=== PATIENT | female | born 1975 | race Caucasian/White ===

== ENCOUNTER 2018-10-05 16:03 | Outpatient (CLI) | payer BC, SELFPAY ==
--- NOTE | 2018-10-05 16:15 | DI.RAD_ITS ---
SYMPTOM/DIAGNOSIS: RT ANKLE INJURY, SWELLING S99.912B RIGHT ANKLE: There is soft tissue swelling greater around the lateral malleolus. No fracture or ankle mortise widening is seen. There are prominent calcaneal spurs. An ossicle is seen at the posterior talocalcaneal joint. IMPRESSION: Soft tissue swelling.
== END 2018-10-05 16:23 ==
PROVIDERS: PCP Family Medicine; Visit Provider Nurse Practitioner Adult Health
DX: S99.911A Unspecified injury of right ankle, initial encounter (principal)
CPT/HCPCS: 73610

== ENCOUNTER 2018-11-20 00:37 | Outpatient (CLI) | payer BC, SELFPAY ==
--- NOTE | 2018-11-20 16:25 | DI.RAD_ITS ---
SYMPTOM/DIAGNOSIS: LOW BACK PAIN LUMBOSACRAL SPINE: 11/20 Five views were obtained. There are mild degenerative changes of the S-I joints bilaterally. There is loss of the lumbar lordosis. There is mild disc space narrowing at L2-3, L3-4 and L4-5. There is no evidence of spondylolysis or spondylolisthesis. Mild hypertrophic degenerative changes of the facet joints noted throughout the lumbar region. No other significant bony abnormality seen. CONCLUSION: Degenerative changes as described above. 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
== END 2018-11-20 00:57 ==
PROVIDERS: PCP Family Medicine; Visit Provider Nurse Practitioner Adult Health
DX: M54.5 Low back pain (principal); M47.816 Spondylosis without myelopathy or radiculopathy, lumbar region; M51.36 Other intervertebral disc degeneration, lumbar region
CPT/HCPCS: 72110

== ENCOUNTER 2019-02-19 00:08 | Outpatient (CLI) | payer BC, SELFPAY ==
--- NOTE | 2019-02-19 10:13 | DI.MRI_ITS ---
EXAM: MR LUMBAR SPINE WO CLINICAL HISTORY: LLE LUMBAR PAIN AND RADICULAR PAIN, ? L4 IMPINGEMENT ON LT, M54.5, M54.10. TECHNIQUE: Multiplanar multisequence MRI was performed. COMPARISON: XR lumbar spine complete from 11/20/2018 FINDINGS: The uterus is incidentally noted to be enlarged and has a nodular contour, consistent with multiple f ibroids. The uterus is not fully included on the exam on any sequence The L1-2 disc has a normal appearance. There is mild concentric bulging of the L2-3 disc. At L3-4, there is moderate loss of disc height and concentric disc bulging. There are mild facet degenerative changes and mild ligamentous hypertrophy. There is bilateral neural foraminal encroachment, greater on the right. There is mild loss of disc height and mild disc bulging at L4-5. There are facet deg enerative changes, which cause bilateral neural foraminal encroachment, greater on the left. The L5- S1 did disc shows minimal bulging. There is no significant neural foraminal narrowing. A bone islan d is seen at L4. The aorta is normal in diameter. IMPRESSION: Degenerative disc changes and facet degenerative changes combine to cause bilateral neural foraminal narrowing from L2-3 through L4-5, greatest at L3-4 on the right and L4-5 on the left.
== END 2019-02-19 00:28 ==
PROVIDERS: PCP Family Medicine; Visit Provider Nurse Practitioner
DX: M54.16 Radiculopathy, lumbar region (principal); M51.16 Intervertebral disc disorders with radiculopathy, lumbar region; M47.26 Other spondylosis with radiculopathy, lumbar region
CPT/HCPCS: 72148

== ENCOUNTER 2019-06-21 08:33 | Outpatient (CLI) | payer BC, SELFPAY ==
[2019-06-24 14:38] LABS: SARS-CoV-2 RNA Undetected (Undetected); SARS-CoV-2 Specimen Source Nasopharynx
== END 2019-06-21 08:53 ==
PROVIDERS: PCP Family Medicine; Visit Provider Physician Assistant Medical
DX: Z11.59 Encounter for screening for other viral diseases (principal)
CPT/HCPCS: U0003

== ENCOUNTER 2019-11-08 02:29 | Outpatient (CLI) | payer BC, SELFPAY ==
--- NOTE | 2019-11-08 | DI.MAMMO_ITS ---
EXAM: MG MAMMO SCREENING CLINICAL HISTORY: SCREENING, Z12.31 TECHNIQUE: Mammograms were interpreted according to the usual protocol including computer analysis w [id number] CAD system, tomosynthesis and C-view imaging. COMPARISON: FINDINGS: Breasts are of moderate density with fairly symmetrical distribution of fibroglandular tissue. No do minant mass or clumped microcalcification is identified in either breast. The current examination is compared with previous examinations including February 2018 and there has been no gross interval erin nge in appearance in comparison with the prior studies. IMPRESSION: No specific evidence of malignancy at this time. Routine screening examinations are suggested at yea rly intervals in this age group according to the ACS ACR guidelines. BI-RADS Category 1 - Negative Breast Density - Category B - Scattered areas of fibroglandular density
== END 2019-11-08 02:49 ==
PROVIDERS: PCP Family Medicine; Visit Provider Nurse Practitioner Adult Health
DX: Z12.31 Encounter for screening mammogram for malignant neoplasm of breast (principal)
CPT/HCPCS: 77063; 77067

== ENCOUNTER 2020-04-25 18:03 | Emergency (ER) | payer BC, SELFPAY ==
[2020-04-25 18:15] VITALS: PULSE 84; TEMP 36.7; O2SAT 100
--- NOTE | 2020-04-25 18:39 | ED.GENADUL_ITS ---
Discharge Plan Disposition Patient Disposition: HOME Condition: Stable Discharge Details Clinical Impression: Occupational exposure in workplace Primary Care Provider: Soraya Lovett ED Provider: Thang Mcneil Home Meds and New Rx's Prescriptions: Continued celecoxib 200 mg capsule 200 mg PO BID RF: 0 gabapentin 300 mg capsule 900 mg PO TID RF: 0 losartan-hydrochlorothiazide 50-12.5 mg tablet 1 tab PO DAILY AM RF: 0 losartan-hydrochlorothiazide 100-12.5 mg tablet 1 tab PO DAILY RF: 0 ergocalciferol (vitamin D2) [Vitamin D2] 1,250 mcg (50,000 unit) capsule 1 mcg PO DAILY AM RF: 0 oxycodone-acetaminophen 5-325 mg tablet 1 tab PO BID RF: 0 cyclobenzaprine 10 mg tablet 10 mg PO DAILY PRN PRNRF: 0 omeprazole 20 mg capsule,delayed release(DR/EC) 20 mg PO DAILY AM RF: 0 Monovisc 88 mg/4 mL syringe INTRA-ARTICULAR RF: 0 loperamide 2 mg capsule RF: 0 terbinafine HCl 250 mg tablet RF: 0 Discharge Instructions Additional Instructions: Please call the emergency department on Tuesday afternoon for laboratory results. The number is [phone]. May resume normal routine and activities. Cleared for return to work. Medical Decision Making 44-year-old female presents from home after referral from her employer at this date. 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 Patient uses personal protective equipment during her job and she has been feeling well. Patient is well-appearing and in no acute distress. I feel she simply requires laboratory analysis including screening blood work and brucella antibodies. We will ask that she call in for results on Tuesday. HPI General Mode of arrival: ambulatory . Date/Time Provider Initiated Documentation: 04/25/20 18:04 . Limitations to Documentation: no limitations . Information obtained by: patient . History of Present Illness 44 year old F presents to the emergency department with the chief complaint of Exposure to brucellosis, no other complaints, Patient started experiencing this unknown and it has been other. No relieving factors improve symptom(s), No exacerbating factors reported . Patient notes no other symptoms.. Patient did receive the following treatments prior to arrival, none Related Data Home Medications Medication Instructions Recorded Confirmed Monovisc INTRA-ARTICULAR 04/25/20 celecoxib 200 mg PO BID 04/25/20 04/25/20 cyclobenzaprine 10 mg PO DAILY PRN PRN 04/25/20 04/25/20 ergocalciferol (vitamin D2) 1 mcg PO DAILY AM 04/25/20 04/25/20 [Vitamin D2] gabapentin 900 mg PO TID 04/25/20 04/25/20 loperamide 04/25/20 losartan-hydrochlorothiazide 1 tab PO DAILY 04/25/20 04/25/20 losartan-hydrochlorothiazide 1 tab PO DAILY AM 04/25/20 04/25/20 omeprazole 20 mg PO DAILY AM 04/25/20 04/25/20 oxycodone-acetaminophen 1 tab PO BID 04/25/20 04/25/20 terbinafine HCl mg 04/25/20 Allergies Allergy/AdvReac Type Severity Reaction Status Date / Time No Known Allergies Allergy Unverified 04/25/20 18:19 General Stated Complaint: Patient Exposure Risk IDALMIS: 3 Review of Systems Narrative: No recent illness. She has otherwise been well. [facility] Social History Smoking risk assessment performed?: No Exam Narrative Exam Narrative: GEN: awake, alert, oriented 3. Pleasant, well groomed, interactive. HEAD: Normocephalic, atraumatic EYES: PERRL, EOMI NECK: Full ROM, no MARY ANNE, no menigismus CHEST/RESP: Nontender, clear to auscultation bilateral, no wheeze/rhonchi/rales CARDIOVASCULAR: RRR, no murmur, rub nery. 2+ Rad pulse bilateral Neuro: Grossly normal neurologic exam, conversant, interactive. Psych: Speech fluent, thoughts congruent, affect normal Course Vital Signs Vital signs: Vital Signs Temperature 36.7 C 04/25/20 18:15 Pulse 84 04/25/20 18:15 Pulse Oximetry 100 04/25/20 18:15 Temperature 36.7 C 04/25/20 18:15 Temperature Source Temporal Artery Scan 04/25/20 18:15 Pulse 84 04/25/20 18:15 Blood Pressure Position Sitting 04/25/20 18:15 Pulse Oximetry 100 04/25/20 18:15 Oxygen Delivery Method Room Air 04/25/20 18:15 Oxygen Flow Rate 0 04/25/20 18:15 Pain Level 0 04/25/20 18:15
[2020-04-25 19:12] LABS: Abs Immature Grans 0.01 10^3/uL (0.0-0.06); Absolute Basophil Count 0.05 10^3/uL (0.0-0.2); Absolute Lymphocyte Count 1.86 10^3/uL (1.2-3.4); Absolute Monocyte Count 0.49 10^3/uL (0.1-0.8); Absolute Neutrophil Count 4.41 10^3/uL (1.2-6.7); Basophils % 0.7; Eosinophils % 4.2; HCT 37.7 % (36.0-46.0); HGB 12.6 g/dL (11.2-15.7); Immature Grans % 0.1; Lymphocytes % 26.1; MCH 30.1 pg (27.0-33.0); MCHC 33.4 % (32.0-36.0); MPV 9.7 fL (8.0-11.0); Monocytes % 6.9; Nucleated RBC 0 %; Platelet Count 291 10^3/uL (130-400); RBC 4.19 10^6/uL (3.93-5.22); RDW 12.3 % (11.7-14.6); RDW-SD 40.4 fL; WBC 7.12 10^3/uL (4.4-10.8)
[2020-04-25 19:54] LABS: ALT 28 U/L (14-59); AST 17 U/L (15-37); Alkaline Phosphatase 50 U/L (46-116); Anion Gap 9.1 mmol/L (3-11); BUN 16 mg/dL (7-18); Bilirubin, Total 0.3 mg/dL (0.2-1.0); CO2 28.9 mmol/L (21.0-32.0); CREATININE 0.7 mg/dL (0.55-1.02); Calcium 9.5 mg/dL (8.5-10.1); Chloride 101 mmol/L (98-107); Glucose 84 mg/dL (74-106); Potassium 3.6 mmol/L (3.5-5.1); Sodium 139 mmol/L (136-145); Total Protein 7.5 g/dL (6.4-8.2)
[2020-05-02 13:10] LABS: Brucella Ab Screen, IgG Negative (Negative); Brucella Ab Screen, IgM Negative (Negative)
== END 2020-04-25 19:19 | disposition home or self-care (01) ==
PROVIDERS: Emergency Provider Emergency Medicine; PCP Family Medicine
DX: Z57.8 Occupational exposure to other risk factors (principal)
CPT/HCPCS: 80053; 99281; 85025; 86622

== ENCOUNTER 2020-06-09 04:34 | Outpatient (CLI) | payer BC, SELFPAY ==
[2020-06-09 16:55] LABS: HCT 33.7 % (36.0-46.0); HGB 11.3 g/dL (11.2-15.7); MCH 30.1 pg (27.0-33.0); MCHC 33.5 % (32.0-36.0); MCV 89.9 fL (80-95); MPV 9.8 fL (8.0-11.0); Platelet Count 257 10^3/uL (130-400); RBC 3.75 10^6/uL (3.93-5.22); RDW 12.1 % (11.7-14.6); RDW-SD 39.8 fL; WBC 6.73 10^3/uL (4.4-10.8)
[2020-06-09 17:25] LABS: C-Reactive Protein 0.53 mg/dL (0.0-0.3)
== END 2020-06-09 04:35 | disposition home or self-care (01) ==
PROVIDERS: PCP Family Medicine; Visit Provider Nurse Practitioner Adult Health
DX: R19.7 Diarrhea, unspecified (principal)
CPT/HCPCS: 36415; 85027; 86140

== ENCOUNTER 2020-06-12 10:59 | Outpatient (REF) | payer BC, SELFPAY ==
[2020-06-12 22:59] LABS: Campylobacter PCR Negative (Negative); Salmonella PCR Negative (Negative); Shiga Toxin PCR Negative (Negative); Shigella/Enteroinvasive Ecoli Negative (Negative)
== END 2020-06-12 11:00 | disposition home or self-care (01) ==
LOC: LBN 10:59
PROVIDERS: PCP Family Medicine; Visit Provider Nurse Practitioner Adult Health
DX: R19.7 Diarrhea, unspecified (principal)
CPT/HCPCS: 87493; 87505; 87177

== ENCOUNTER → 2021-10-23 00:01 | Outpatient (CLI) | payer BC, SELFPAY ==
--- OUTSIDE RECORDS SUMMARY | 2021-10-09 00:06 | XMS_ITS | Encounter Summary ---
:1975 Author Organization [facility] Address [address] [place] [address] Care Team Providers Name Role Phone Toyin Frias NP Primary Care Provider Reason for Visit Auth/Cert Specialty Diagnoses / Procedures Referred By Contact Refer red To Contact Diagnoses Effusion of right knee S/P total knee arthroplasty, right Effusion of right knee [M25.461] S/P total knee arthroplasty, right [Z96.651] Procedures [place] EXPLOR/DRAIN KNEE,INFECTN ARTHROTOMY, KNEE, WITH EXPLORATION, DRAINAGE, OR FOREIGN BODY REMOVAL Referral ID Status Reason Start Date Expiration Date Visits Requ ested Visits Authorized [id number] 07/14/2021 07/16/2021 1 1 Encounter Details Date Type Department Care Team Description 07/14/2021 Surgery [facility] - Donnie Baig, ARTHROTOMY, KNEE, WITH [facility] Operating Room EXPLORATION, DRAINAGE, [address] [place] [address] Road REMOVAL- Total Knee [phone] [address] Revision, [place] [address] EXCHANGE [42737 (Wo rk) (CPT??)] Surgery Details Date/Time Status Location OR Service Patient Case Case Traum a Class Class Type Case? 07/14/21 1030 Posted [facility] OR [facility] Orthopedics Extended G - Less Stay than 48 hours Panel 1 Procedure [facility] Anes Op Region Wound Class Commen ts ARTHROTOMY, KNEE, WITH EXPLORATION, Right General Knee Class I/ Clean DRAINAGE, OR FOREIGN BODY REMOVAL- Total Knee Revision, POLY EXCHANGE Surgeon Surgeon Role Service Panel Donnie Baig MD Primary Orthopedics 1 Special Needs AD Poly exchange for a 6 TS insert 13mm thick Social History Tobacco Use Types Packs/Day Years Used Date Never Smoker Smokeless Tobacco: Never Used Alcohol Use Standard Drinks/Week Comments Yes 14 (1 standard drink = 0.6 oz pure alcoh ol) 1-2 glasses of wine per day Alcohol Habits Answer Date Recorded How often do you have a drink containing Not asked alcohol? How many drinks containing alcohol do you Not asked have on a typical day when you are drinking? How often do you have six or more drinks Not asked on one occasion? Comment: 1-2 glasses of wine per day 06/29/2021 Sex Assigned at Date Recorded Not on file COVID-19 Exposure Response Date Recorded In the last 10 days, have you been in contact with No / Unsu re 07/13/2021 14:11 EDT someone who was confirmed or suspected to have Coronavirus/COVID-19? documented as of this encounter Last Filed Vital Signs Vital Sign Reading Time Taken Comments Blood Pressure 200/110 07/14/2021 0900 EDT Pulse - - Temperature 36.6 ??C (97.9 ??F) 07/14/2021 0900 EDT Respiratory Rate 14 07/14/2021 0900 EDT Oxygen Saturation 100% 07/14/2021 0900 EDT Inhaled Oxygen Concentration - - Weight 104.3 kg (230 lb) 07/14/2021 0900 EDT Height 167.6 cm (5' 6) 07/14/2021 0900 EDT Body Mass Index 36.02 07/14/2021 1627 EDT documented in this encounter Functional Status Functional Status Response Date of Assessment Are you deaf or do you have serious difficulty hearing? No 07/14/2021 Are you blind or do you have serious difficulty seeing, No 07/14/2021 even when wearing glasses? Do you have serious difficulty walking or climbing Yes 07/14/2021 stairs? (5 years old or older) Do you have difficulty dressing or bathing? (5 years old No 07/14/2021 or older) Because of a physical, mental, or emotional condition, do No 07/14/2021 you have difficulty doing errands alone such as visiting a doctor's office or shopping? (15 years old or older) Cognitive Status Response Date of Assessment Because of a physical, mental, or emotional condition, do No 07/14/2021 you have serious difficulty concentrating, remembering, or making decisions? (5 years old or older) documented as of this encounter Discharge Summaries Donnie Baig MD - 07/16/2021 1250 EDT Admit Date: 07/14/2021 Discharge Date: 07/16/2021 Primary Diagnosis: Hemarthrosis following procedure Secondary Diagnosis: Patient Active Problem List Diagnosis ??? Internal nasal lesion ??? Enlarged uterus ??? History of DVT (deep vein thrombosis) ??? IBS (irritable bowel syndrome) ??? Iron deficiency ??? Morbid obesity (HCC-CMS) (HCC) ??? OA (osteoarthritis) ??? Primary osteoarthritis of knees, bilateral ??? Right knee DJD ??? S/P laparoscopic sleeve gastrectomy ??? Arthritis of right knee ??? Effusion of right knee ??? S/P total knee arthroplasty, right ??? Hemarthrosis following procedure CC: Toiyn Frias NP Home Health HPI: Patient is a 45-year-old woman who had right total knee arthroplasty June 30. She was discharged home after 2 days in the hospital. She presents to the emergency room over the weekend with concerns about some bleeding. She had the bandage replaced and reinforced. She followed up in our office Tuesday last week, July 06 . She was noted to have some persistent bleeding. She had a new bandage placed and I met with on the . There is a small amount of bleeding noted. We replaced the bandage. Plan was for coming to the office this week. She came back to the office on Tuesday with concerns about bleeding. At that visit I aspirated the knee and removed significant amount of serosanguineous fluid. We did send it for analysis. I had a video visit with her on July 13. There is some serous drainage persisting on the bandages and patient advised to come to the hospital for washout of her knee and evaluation for possible infection. Hospital Course: Patient was admitted on day of surgery. I took her to the operating. The superficial layer had what appeared to be a resolving hematoma. We drained this out. Opening knee, there is more serous fluid. She had hyperemia and very friable tissue throughout the wound. We did use the aqua mantis for hemostasis. We exchanged the polyethylene. Drains were placed in multiple cultures and tissue specimens obtained. These were all read as negative for any acute inflammation. Cultures prior to discharge were negative. We left the drains in place. She was continued on IV antibiotics during her hospital stay. She was discharged on postop day 2. We did leave the drains in place with instructions to have home health remove the drains. Consults: Physical therapy/Occupational Therapy/Care Management Exam: General: Awake, alert, oriented to person place and time. No acute distress. Blood pressure 118/76, pulse 85, temperature 36.9 ??C (98.4 ??F), temperature source Oral, resp. rate 16, height 170.2 cm (67), weight (!) 104.3 kg (230 lb), last menstrual period 06/29/2021, SpO2 97 %. Abdomen: Soft and nontender Ext: Bandage intact right lower extremity. No appreciable drainage. Hemovacs in place. Approximately 100 mL out since yesterday. Compartments soft. CSMT intact Recent Labs 07/15/21 0645 07/16/21 0646 WBC 6.01 6.91 HGB 7.9* 8.6* HCT 24.6* 27.1* NA 135* -- K 4.0 -- CL 103 -- CO2 24 -- BUN 10 -- CREATININE 0.62 -- Condition: Stable Follow up: [facility] Orthopedics and Sports Medicine in 2 week(s) with X-rays right knee documented in this encounter Medications at Time of Discharge Medication Sig Dispensed Refills Start Date End Date acetaminophen/diphenhyd Take 2 Tablets by 0 ramine (TYLENOL PM mouth at bedtime. ORAL) amLODIPine (NORVASC) 5 Take 5 mg by mouth 0 06/12 mg tablet daily. ascorbic acid, vitamin at bedtime. 0 C, (VITAMIN C) 500 mg tablet Calcium Carbonate 600 2 tab(s) orally twice 0 mg calcium (1,500 mg) a day tablet celecoxib (CELEBREX) Take 200 mg by mouth 2 0 03/2018 200 mg capsule times daily. cyanocobalamin (VITAMIN Take by mouth four 0 B-12) 500 mcg tablet times a week. cyclobenzaprine Take 10 mg by mouth at 0 03/29/19 20 (FLEXERIL) 10 mg tablet bedtime. diclofenac sodium 1 % Apply 2 g topically if 0 gel needed. DULoxetine (CYMBALTA) 0 01/15/2019 60 mg capsule ergocalciferol 1 cap(s) orally once a 0 7 (DRISDOL; VITAMIN D2) week 1,250 mcg (50,000 unit) capsule ferrous sulfate 325 mg Take 325 mg by mouth 0 (65 mg iron) tablet daily. gabapentin (NEURONTIN) TAKE 1 TO 3 CAPSULES 0 09/2019 300 mg capsule ORALLY 3 TIMES A DAY FOR CHRONIC PAIN loperamide (IMODIUM Take by mouth 4 times 0 A-D) 2 mg tablet daily as needed. methocarbamoL (ROBAXIN) Take 1 Tablet by mouth 90 Tablet 0 05/07/2021 500 mg tablet 3 times daily as needed for Muscle Spasms. multivitamin capsule 1 cap(s) orally twice 0 a day omeprazole (PRILOSEC) 0 04/02/2019 20 mg capsule oxyCODONE (ROXICODONE) Take 1 Tablet by mouth 9 Tablet 0 0 07/16/2021 5 mg immediate release every 8 hours as tablet needed for Pain (Severe Pain (7-10)). Daily Max: 15 mg OZEMPIC 1 mg/dose (4 PATIENT TAKES ON 0 2 mg/3 mL) pen injector TUESDAY' OZEMPIC subcutaneous INJECT 0.25 MG 0 04/17/2021 pen SUBCUTANEOUSLY ONCE A WEEK FOR DIABETES aspirin chewable 81 mg Take 1 Tablet by mouth 28 Tablet 0 0 07/16/2021 07/30/2021 tablet 2 times daily for 14 days. documented as of this encounter Ordered Prescriptions Prescription Sig Dispensed Refills Start Date End Date oxyCODONE (ROXICODONE) 5 Take 1 Tablet by 9 Tablet 0 07/16 mg immediate release mouth every 8 hours tablet as needed for Pain (Severe Pain (7-10)). Daily Max: 15 mg aspirin chewable 81 mg Take 1 Tablet by 28 Tablet 0 07/16/ 022 07/30/2021 tablet mouth 2 times daily for 14 days. documented in this encounter Discharge Disposition Disposition Code Departure Means Destination Home-Health Care [facility] Home documented in this encounter Progress Notes Sarina Sahu, PT - 07/16/2021 1519 EDT [facility] Physical Therapy Discontinue/Discharge Note Date of Service: 07/16/2021 SUBJECTIVE: Oh, I thought if I was using a single crutch it would be held in the same side! Things feel pretty good. OBJECTIVE: In this reporting period 07/15/21 to today, the patient has been seen for physical therapy services. Please refer to the physical therapy notes for specifics on the patient's treatment sessions. Interventions Completed Today: Gait training with single crutch, contralateral hand from surgical side. Gait training on stairs with myranda axillary crutches, focus on up with non-surgical side, down with surgical LE and crutches staying with surgical LE. Up/down 4 stairs; ambulate 200 ft SBG Arousal, Attention, and Cognition: Alert and oriented x 4 Integumentary/Anthropometric: two hemovacs with serosanguinous fluid draining from R knee. Range of Motion and Joint Integrity: WFL for purpose of gait, stairs, sitting and transfers R LE Patient/Family Education: Gait training as above ASSESSMENT: Seng is able to carry out safe gait and stair ascent/descent at this time. She can manage householddistances. She is appropriate for d/c to I HEP and home health likely followed by outpatient therapywhen appropriate. Short-Term Goals: Time Frame: 07/17/21--met 07/16/21 Goal: I in HEP Status: Initiated Goal: I gait for 300ft with crutches with 75% WB on R LE. Status: Initiated Goal: I on steps with crutches. Status: Initiated ?? Long-Term Goals: ?? NA PLAN: d/c from inpatient setting PT; home health upon return home Sarina Sahu, PT 07/16/2021 15:19 Ashanti Dougherty - 07/16/2021 1115 EDT Patient is discharged with services through [facility]. CM will fax discharge paper work. Patient has a friend that will drive her home. She has no concerns regarding this discharge plan. Essie Coker, PT - 07/15/2021 2516 EDT [facility] Therapy Initial Evaluation Note Date of Service: 07/15/2021 Diagnosis: S/P R TKR revision Date of Onset: 07/14/21 Referring Provider: Donnie Baig MD. Session #: 1 Reason for Referral: Evaluate and treat SUBJECTIVE: Patient is currently having difficulty with: I am so tired Patient/caregiver states: I want to get back to normal. Numeric Pain Scale Numeric Pain Level (Scale 1-10): 3 Primary Pain Site Assessment Pain Location: Knee Pain Orientation : Right OBJECTIVE: Patient Profile: Patient is a 45 y.o. female admitted on 07/14/2021 secondary to Hemarthrosis following procedure The patient lives at [place] [address] General Information Hand Dominance: Right Support Support Person: Significant other Support Comment: as needed Prior Level of Function: Was advancing to no device gait before knee troubles arose. Medical/Surgical History: Current: The patient has Internal nasal lesion; Enlarged uterus; History of DVT (deep vein thrombosis); IBS (irritable bowel syndrome); Iron deficiency; Morbid obesity ([facility]) ([facility]); OA (osteoarthritis); Primary osteoarthritis of knees, bilateral; Right knee DJD; S/P laparoscopic sleeve gastrectomy; Arthritis of right knee; Effusion of right knee; S/P total knee arthroplasty, right; and Hemarthrosis following procedure on their problem list. Past: The patient has a past medical history of Bowel disease, DVT (deep venous thrombosis) ([facility]) (HCC), GERD (gastroesophageal reflux disease), Hypertension, and Thoracic outlet syndrome (had ribresection and resolved this issue per patient ). The patient has a past surgical history that includes Carpal tunnel release (Bilateral, 2009); Gastric bypass surgery (2015); rib resection (2005); Foot surgery (Left, 2010); knee surgery (Right, 04/09/2019); knee surgery (Right, 2007); knee surgery (Left, 2008); and knee surgery (Bilateral, 1990). Arousal, Attention, and Cognition: Orientation Level: Oriented X 4 Cardiopulmonary: General Assessment: No problems noted Integumentary/Anthropometric: Skin Integrity Integrity: Intact Additional Comments: No drainage on dressing of R knee. Range of Motion and Joint Integrity: General Assessment Range of Motion: No problems noted Muscle Performance: Strength: Manual muscle testing not formally performed, strength observed to be > 3/5 with gross movement Sensation, Reflexes, and Nerve Integrity: Sensory Functions: No problems noted Neuromotor Function/Development: Neuromotor Function/Development: No problems noted Balance, Mobility, and Gait: Mobility General Mobility: No problems noted Additional Comments: I in bed mobility, transfers and car transfers. Gait: Requires use of assistive device for ambulation Assistive Device/Brace/AFO/Prosthesis/Sling: Crutches with a shortene stride and reduced WB on R LE. Self-Care, Home Management, Work, Leisure: Was I and active. Informed Consent: The patient consented to the Physical Therapy evaluation. The patient agrees to and understands the Physical Therapy treatment plan and goals. Interventions Completed Today: Time: 0800 Total Treatment Time (minutes): 77 Timed Code Treatment Minutes: 47 Procedures: Gait training Gait Training Minutes: 16 Gait Training 1: Crutches walking with WBAT R LE for 250ft with cues for stepping to become less stiff legged on R. Also cues for lengthened L stride. Not FWB tolerant on R LE. Procedures: Therapeutic activities, Therapeutic exercise Therapeutic Activities Minutes: 17 Therapeutic Activities 1: Supine to/from sit cues then self managed with near normal timeliness. Sitto/from stand using UE assist managed I as well from bed, chair and toilet. Cues for align to use R LE more managed after epeated x 3. Therapeutic Exercises Minutes: 15 Therapeutic Exercise 1: Standing heel toe lifts and semi squats x 5 B for 50% WB on R LE. Quad/Ham/Glut sets taught with 5second holds x 10 reps each with manual cues for muscle contractions right extremity. Ankle pumps., heel slides, LAQs, SLRs, and bridging x 10 each on right extremity with target cuing. Patient/Family Education: Rehab path post TKR ASSESSMENT: Patient presents after TKR revision. She is somnolent but well motivated. She shows good potential to advance back to home and to restart Hh therapy on discharge. She is safe with crutches and will need to practice steps to enter home prior to discharge. The patient's rehabilitation potential is: good Short-Term Goals: Time Frame: 07/17/21 Goal: I in HEP Status: Initiated Goal: I gait for 300ft with crutches with 75% WB on R LE. Status: Initiated Goal: I on steps with crutches. Status: Initiated Long-Term Goals: PLAN: Training: Gait training Frequency: BID, Times per week Times Per Week: 7 Intensity: 15-45 minutes Duration: 2, Days Patient/Family Education: Discharge planning, Equipment, Recommendations, Symptom management Recommended Discharge Destination: Home with family support/supervision Therapy Specific Services: Physical therapy Equipment Dispensed: Mobility Equipment Mobility Equipment: Crutches Crutch Specifics: Axillary crutches ESSIE MCCLAIN, PT 07/15/2021 16:12 Basilia Gillis, OT - 07/15/2021 1337 EDT [facility] Occupational Therapy Single Visit Evaluation Note Date of Service: 07/15/2021 Precautions: Wound vac in place, per TKR SUBJECTIVE: Patient is currently having difficulty with: no problems reported Patient/caregiver states: I was doing pretty well at home Patient and Caregiver Goals: Return to my normal life Pain Comments: 05/21 right knee @FLOWPT([id number]:LAST:1:2) Medical/Surgical History: Current: has Internal nasal lesion; Enlarged uterus; History of DVT (deep vein thrombosis); IBS (irritable bowel syndrome); Iron deficiency; Morbid obesity ([facility]) ([facility]); OA (osteoarthritis); Primary osteoarthritis of knees, bilateral; Right knee DJD; S/P laparoscopic sleeve gastrectomy; Arthritis of right knee; Effusion of right knee; S/P total knee arthroplasty, right; and Hemarthrosis followingprocedure on their problem list. Past: has a past medical history of Bowel disease, DVT (deep venous thrombosis) ([facility]) ([facility]) (2004 from thoracic outlet syndrome), GERD (gastroesophageal reflux disease), Hypertension, and Thoracicoutlet syndrome. has a past surgical history that includes Carpal tunnel release (Bilateral, 2009); Gastric bypass surgery (2015); rib resection (2005); Foot surgery (Left, 2010); knee surgery (Right, 04/09/2019); knee surgery (Right, 2007); knee surgery (Left, 2008); and knee surgery (Bilateral, 1990). HPI: Support Person: Significant other Support Comment: as needed Prior Level of Function: Basic Activities of Daily Living - General Level of Assistance Throughout: Independent Home Environment: Safety Assessment / Living Environment Home environment: House Home layout: One level Entrance Stairs: Stairs to enter with rails # of Steps to Enter: 4 Entrance Stairs - Rails: Left Bathroom Set up: Tub/shower unit, Walk-in shower, Standard toilet Bedrooms/Bathrooms: Able to live on main level with bedroom/bathroom Mobility Equipment: Cane, Crutches Support Person: Significant other Support Comment: as needed OBJECTIVE: Patient Profile: Patient is a 45 y.o. female admitted on 07/14/2021 secondary to Hemarthrosis following procedure. The patient lives at [place] [address] Body Functions and Performance Skills Cardiovascular/Respiratory Systems Function: Mental Functions: No problems noted. Sensory Functions: No problems noted . Neuromusculoskeletal and Movement Related Functions: UE WNL Skin and Related Structure Functions: Drains in place right knee. Areas of Occupation and Performance Skills: Basic Activities of Daily Living: Feeding: Indep Grooming: indep Bathing: NT Upper Body Dressing: indep Lower Body Dressing: indep Toileting: modified indep with crutches Toilet Transfer: modified indep with crutches Functional Mobility: modfied indep with crutches Instrumental Activities of Daily Living: Not evaluated. Informed Consent: The patient consented to the occupational therapy evaluation. The patient agrees to and understands the occupational therapy treatment plan and goals. Interventions Completed Today: Time: 3759-8820 Total Treatment Time (minutes): 15 Procedures: Self-care/home management Self-Care/Home Management 1: Review of self manual lymph drainage technique to mobilize post surgical edema, edema in lower leg and foot. Applied tubi cannon fire direction specialist stockinette to foot and lower leg, size F dueto edema. Pt able to don with cues. Provided second set for home. Additional information may be available in the medical record. Patient/Family Education: Edema Management: Edema management, Self-manual lymph drainage techniques Safety: Post-operative precautions per protocol Therapy Specific: Role of occupational therapy ASSESSMENT: These impairments are contributing to the following activity limitations and participation restrictions: functional mobility Pt well-known to this therapist from previous admission after initial knee replacement surgery. Pt is mobilizing well this date, is easily able to reach her feet for lower body ADL and demonstrates good balance and activity tolerance to perform other self care tasks in standing, complete toileting independently. Pt has no concerns about going home when cleared and has no additional OT needs. PLAN: Discharge Recommendations: Recommended Discharge Destination: Home with family support/supervision Therapy Specific Services: Physical therapy Team Communication: Notified: Team When: After therapy session Patient Status and Referrals: Patient status, Discharge needs BASILIA ROSE OT, 07/15/2021, 13:37 Lis Montalvo - 07/15/2021 1023 EDT Initial Case Management/Social Work Assessment and Discharge Plan/Readmission Risk Assessment REASON FOR ADMISSION: Hemarthrosis following procedure Patient understands reason for admission: PATIENT INFO VERIFIED: PCP, Contact Info, Address, PO box (see comment for phycial address) Type of housing (single family, condo, apartment, longterm, single room occupancy, [facility] funded hotel room, group fpc) - Single Family, One Level Home Who does the patient live with? SO Does the patient have access to their own bedroom/bathroom/kitchen - or is it shared with others? Shared Name of housing complex (ex [place], [facility], etc)- n/a Housing Authority/Managing Organization - n/a Community Care Providers (ed case manager, [facility] nurse, etc) name and contact information- n/a LIVING ARRANGEMENTS AND ACCESSIBILITY ISSUES: Living Arrangements: Private residence, Spouse / significant other Levels: 1 Stairs to enter: 4 or more Handicap access: Railings into home Bathroom located on bedroom level?: Yes What in home social supports are available to the patient? Spouse / significant other Is / care available? NA ADVANCED DIRECTIVES, POA &/or COLST IN PLACE: Healthcare Directive: No, patient does not have advance directive for healthcare treatment Information Provided on Healthcare Directives: Yes Information on Healthcare Directives Requested: Yes Patient Requests Assistance: Yes, will do independently DIRECTIVES FOR FINANCES: Directive For Finances: No TRANSPORTATION: Transportation: Family Patient expects to be discharged to: Home CULTURAL, CHEONDOISM and/or LANGUAGE factors affecting health care/discharge planning: Spiritual/Cultural Requests: None Language/Literacy Needs Do you need us to provide any communication aids or devices?: No Insurance Information: Medical Insurance: Yes Type of insurance: Commercial insurance Commercial coverage: [place]BS [place] Referred to patient financial services: No Nutrition: DISCHARGE RISK ASSESSMENT: Repeat hospitalizations/ED visits;Polypharmacy, > 7 medications Total # selected above: Score of 1 - 2: This patient is at LOW RISK for re-hospitalization Tentative plan to address the risk of re-hospitalization for those at HIGH MODERATE RISK: Refer to skilled home care services RAPT TOOL: Patient expects to be discharged to: Home SBIRT: FUNCTIONAL STATUS: Activities patient requires assistance: None Assistive Devices: Cane, Crutches COMMUNITY RESOURCES/SUPPORTS: Primary Care Provider: Toyin Frias NP PCP Verified: Specialists: Orthopedics Type of Home Health Services: Home PT/OT DME Provider: Pharmacy: [id number] - [address] [address] Home Health: [facility] Other: [facility] PLAN: Home Seng confirms her PCP, demographics, contacts, and pharmacy as current. She does not have an AD on file but requested and received a blank copy while here. She is aware to ask CM for assistance if/whenneeded. She states her SO Luis will be her agent. Seng states she continues to reside with her SO in a one level home with 5 steps and a railing to enter. She is fully independent with her ADL's with the use of her crutches and was about to start using a cane instead when she was admitted. She states her SO is supportive and helps as needed. She has been active with [facility] but on dc, she feels she may not need them since they have advanced her to outpt PT for Tuesday. If HH is ordered, she would stay with [facility] and CM will need to fax clinical and call with an update, otherwise her appt with outpt PT is scheduled. Seng denies further questions or concerns for CM and states nothing could have been done differentlyto prevent her readmission and feels she was doing well prior to the infection. LIS NICHOLSON 07/15/2021 10:23 Donnie Saucedo MD - 07/15/2021 0741 EDT Admit Date: 07/14/2021 Hospital Day: LOS: 1 day Problem: No diagnosis found. Procedure: * ARTHROTOMY, KNEE, WITH EXPLORATION, DRAINAGE, OR FOREIGN BODY REMOVAL- Total Knee Revision, POLY EXCHANGE Subjective: Had more pain last night and needed IV meds. Feeling better this morning. Objective: BP (!) 146/89 (BP Cuff Location: Right arm, BP Patient Position: Semi fowlers) Pulse 85 Temp 36.6 ??C (97.8 ??F) (Oral) Resp 18 Ht 170.2 cm (67) Wt (!) 104.3 kg (230 lb) LMP 06/29/2021 (Exact Date) SpO2 98% BMI 36.02 kg/m?? 07/14 0700 - 07/15 0659 In: 1154 [P.O.:120; I.V.:984] Out: 315 [Drains:115] General: NAD, A/O x3 Skin: Intact without erythema, bullae, rashes, ecchymoses Respiratory: Non-labored Right Lower Extremity: Bandage: Clean and dry. Drains in place Compartments: soft Neuro: intact Recent Labs 07/15/21 0645 WBC 6.01 HGB 7.9* HCT 24.6* NA 135* K 4.0 CL 103 CO2 24 BUN 10 CREATININE 0.62 Assessment: Seng Muse is a 45 y.o. year old female post op day 1 from * ARTHROTOMY, KNEE, WITH EXPLORATION, DRAINAGE, OR FOREIGN BODY REMOVAL- Total Knee Revision, POLY EXCHANGE Plan: Monitor drain output. Follow up cultures. ?? Pain control ?? Weight Bearing: As tolerated ?? Carney: n/a ?? Antibiotics: continue pending culture results ?? DVT Prophy: 81mg aspirin for 2 weeks ?? Diet: Regular diet ?? Discharge Recommendation: home pending results ?? Follow up 2 weeks, right knee X-ray Donnie Baig MD [facility] Orthopedics & Sports Medicine 7:41 07/15/2021 Pager: documented in this encounter H&P Notes Donnie Baig MD - 07/14/2021 1030 EDT The preoperative history and physical which was performed within 30 days of this procedure has been reviewed and the clinically appropriate elements of the physical examination havebeen repeated. There are no changes to the documented history and physical or if so such changes aredocumented below Lungs: clear to auscultation bilaterally Card: regular rate and rhythm. No murmurs. Normal heart sounds DONNIE BAIG MD 07/14/2021 10:39 eriaDonnie fortune MD - 07/10/2021 1500 EDTPost-Procedure Diagnose(s): Effusion of right knee; S/P total knee arthroplasty, right PROBLEM: Right knee hemarthrosis postoperative total knee arthroplasty SUBJECTIVE: Seng Muse is a 45 y.o. female who is here today for follow up. Patient had knee replacement on June 30. Last weekend she presented to the emergency room with bleeding. She came back to the office on Tuesday for dressing change. I saw her 2 days ago and there was still some bleeding noted.She called the office today because she was concerned about persistent bleeding. No fevers, sweats, chills. The past medical, family and social history have been reviewed in the patient chart. ROS OBJECTIVE: LMP 06/29/2021 (Exact Date) On physical exam, the patient is found to be a pleasant and cooperative female. In no acute distress. Psych: She is alert and oriented x 3 with normal affect. Constitutional: She is well-developed and in no significant distress. Eyes: Sclerae clear. Resp: Breathing is regular and nonlabored without audible wheezing. Skin: warm and dry Msk: Right knee examined. The upper portion of her incision is well-healed. There is a small amount of bleeding noted from the very distal aspect of the incision. This appears to be serosanguineous but bright red. There is moderate drainage on her bandage which I placed 2 days ago. She has a 2-3+ knee effusion. ASSESSMENT: 1. Effusion of right knee BACTERIAL CULTURE/SMEAR SYNOVIAL CELL COUNT COVID-19 TESTING BACTERIAL CULTURE/SMEAR SYNOVIAL CELL COUNT 2. S/P total knee arthroplasty, right BACTERIAL CULTURE/SMEAR SYNOVIAL CELL COUNT COVID-19 TESTING BACTERIAL CULTURE/SMEAR SYNOVIAL CELL COUNT PLAN: Given that she continues to have some bleeding from the knee I am concerned that there may be activebleeding in the knee. We did get a hemoglobin hematocrit the other day and that is actually better than it was at time of discharge. The bleeding today does appear to be more serous. It is certainly possible the bleeding has stopped. Nevertheless, I think it might be prudent to plan for possible woundexploration. I did recommend, and performed, and the aspiration. We will take out about 60 mL of dark serosanguineous fluid. Fluid sent for gram stain, cell count and culture. I discussed the procedure. To be similar to her other operation. Plan to be to open her knee, irrigate out the hemarthrosis, look for possible bleeding source, and possible polyethylene exchange. Informed consent obtained today. Plan will be to do this Tuesday if bleeding persist. We will consider a televideo visit on Tuesday to check the wound if there is been no bleeding over the weekend. If the bleeding stops but her cultures suggest infection, she will definitely need to come in for surgery. Follow up 3 days Procedure: Large Joint Injection/Arthrocentesis on 07/10/2021 15:00 Details: 22 G needle, lateral approach Aspirate: 60 mL serous and blood-tinged; sent for lab analysis Outcome: tolerated well, no immediate complications Procedure, treatment alternatives, risks and benefits explained, specific risks discussed. Consent was given by the patient. Immediately prior to procedure a time out was called to verify the correct patient, procedure, equipment, accounting support specialist and site/side marked as required. Patient was prepped anddraped in the usual sterile fashion. This note was prepared using voice recognition software and the EMR. There may be inadvertent errorsand omissions. Donnie Baig MD 07/10/2021 documented in this encounter OR Notes OR Surgeon - Donnie Baig MD - 07/14/2021 1541 EDT Date: 07/14/21 Location: [facility] OR Name: Seng Muse, : 1975, Diagnosis Hemarthrosis following procedure Post-op Diagnosis * Effusion of right knee [M25.461] * S/P total knee arthroplasty, right [Z96.651] Procedures * ARTHROTOMY, KNEE, WITH EXPLORATION, DRAINAGE, OR FOREIGN BODY REMOVAL- Total Knee Revision, POLY EXCHANGE Surgeons * Donnie Baig MD - Primary Procedure Summary Anesthesia: General ASA: II Estimated Blood Loss: 200 mL Tourniquet time: 0 minutes Total IV Fluids: see anesthesia record LDAs: Peripheral IV 07/14/21 0958 Anterior;Left;Proximal Forearm (Active) Closed/Suction Drain Right;Ventral Knee 10 Slovak (Active) Wound 07/14/21 Anterior;Right Knee (Active) Staff: Collection Development Librarian: Ainsley Olivarez RN; Jaylyn Barkley RN Scrub Person: Hermelinda Rosenberg LPN; Donnie Gee, SUSI Pig Breeder: Laina Brumfield Indications: Seng Muse is an 45 y.o. female who is having surgery for Effusion of right knee [M25.461] S/P total knee arthroplasty, right [Z96.651]. Patient is 2-week status post total knee arthroplasty.She was discharged home from her index procedure 2 days after surgery. 2 days later she presents emergency about some bleeding. She was seen in our office 6 days after surgery and had a dressing change. I met with her again on Tuesday and Tuesday of last week. Tuesday we did aspirate 60 mL of serosanguineous fluid. Cultures have been negative so far. No bacteria has been seen. Over the weekend she had some drainage on her bandage. We had a televideo visit yesterday. There is serous drainage on her bandages. She is admitted to the hospital now to washout her knee, obtain deep cultures, and assess for cause of bleeding. Implants: Implants Type Name Action Serial No. Total Joint Implant KNEE TIBIAL INSERT FIXED SIZE 6 TS 13MM TRIATHLON [id number] - [id number] Implanted Findings: 1. Patient received Ancef 2 g IV after cultures obtained. 2. Venodyne's used on nonoperative leg for DVT prophylaxis. These will be continued postoperatively. 3. Surgical site signed preoperatively. Timeout done in the operating room verifying patient, side, site, operative procedure, available equipment. 4. There was some bleeding in the superficial layer outside of the knee. Patient had extensive inflammation and minor bleeding throughout the knee. There was a copious amount of serous fluid in the knee. Tissues sent for culture and histopathology. Procedure Details: The patient was identified and brought into the operating room. Anesthesia administered a spinal anesthetic without difficulty. We placed the patient supine with care to pad pressure areas. We prepped and draped the operative site in the usual sterile fashion. We performed our time out procedure. I utilized the patient's previous skin incision. As we got through the subcuticular layer and above the retinaculum and fascia there was some bleeding noted. I did scrape some of this tissue which appeared to be hemorrhagic and sent for pathology. I then opened the patient's previous medial parapatellar incision. A copious amount of serous fluid was noted. There are some bleeding throughout. Most of her tissues had punctate bleeding. We did not identify any single source of bleeding. We took multiple tissue specimens and then irrigated the knee. I removed the patient's polyethylene insert. This allowed access to the posterior knee. Again I did not see any significant bleeding. We irrigated the posterior knee as well. We then reinserted the polyethylene insert. Once we did that there did seem to be some bleeding from the posterior medial joint. We inserted Surgicel and left it for 15 minutes. We then inserted some Avitene to help control bleeding from this area. We had irrigated with a total of almost 3 L of combination of saline and Irrisept. We closed the medial retinacular incision with a running strata fix suture. I then irrigated the superficial layer. Prior to closure of each layer I didplace Hemovac drains. We injected with some Exparel and I approximated the subcuticular layer with 0Maxon suture followed by 2-0 Maxon. We closed skin with a running Monocryl. We applied Dermabond and a sterile bandage. We had 3 drains coming out the superior lateral knee. These were sewn into place. A dressing was applied over the drain site. We then placed an Charles wrap withcompression. We sent the patient to recovery room in stable condition. Sponge and instrument counts were correct. Postop plan: Monitor drain output. Continue antibiotics pending cultures. Anticipate 2 night hospital stay while we monitor her drain output and wait for culture results. May be weightbearing to tolerance. Coagulation studies ordered by anesthesiology. . Complications: None; patient tolerated the procedure well. Condition: stable Specimens:tissue specimens was sent for Frozen Section and Culture and Sensivity DONNIE BAIG MD 07/14/21 15:41 reprocedure Instructions - Roslyn Francis RN - 07/13/2021 1416 EDT Seng Muse has been instructed as follows regarding medication administration for the day of the scheduled procedure. Date of Surgery: 07/14/21 Instructions for Taking Medications Day of Surgery Medication Sig Last Dose Hold DOS Take DOS acetaminophen/diphenhydramine (TYLENOL PM ORAL) Take 2 Tablets by mouth at bedtime. amLODIPine (NORVASC) 5 mg tablet Take 5 mg by mouth daily. TAKE ascorbic acid, vitamin C, (VITAMIN C) 500 mg tablet at bedtime. aspirin 325 mg tablet Take 1 Tablet by mouth 2 times daily for 28 days. Patient taking differently: Take 81 mg by mouth 2 times daily. Calcium Carbonate 600 mg calcium (1,500 mg) tablet 2 tab(s) orally twice a day celecoxib (CELEBREX) 200 mg capsule Take 200 mg by mouth 2 times daily. cephalexin (KEFLEX) 500 mg capsule Take 1 capsule by mouth 4 times daily for 7 days. 07/15/21 cyanocobalamin (VITAMIN B-12) 500 mcg tablet Take by mouth four times a week. cyclobenzaprine (FLEXERIL) 10 mg tablet Take 10 mg by mouth at bedtime. diclofenac sodium 1 % gel Apply 2 g topically if needed. DULoxetine (CYMBALTA) 60 mg capsule TAKE ergocalciferol (DRISDOL; VITAMIN D2) 1,250 mcg (50,000 unit) capsule 1 cap(s) orally once a week ferrous sulfate 325 mg (65 mg iron) tablet Take 325 mg by mouth daily. gabapentin (NEURONTIN) 300 mg capsule TAKE 1 TO 3 CAPSULES ORALLY 3 TIMES A DAY FOR CHRONIC PAIN loperamide (IMODIUM A-D) 2 mg tablet Take by mouth 4 times daily as needed. methocarbamoL (ROBAXIN) 500 mg tablet Take 1 Tablet by mouth 3 times daily as needed for Muscle Spasms. multivitamin capsule 1 cap(s) orally twice a day omeprazole (PRILOSEC) 20 mg capsule TAKE oxyCODONE (ROXICODONE) 5 mg immediate release tablet Take 1 Tablet by mouth every 8 hours as needed for Pain (Severe Pain (7-10)). Daily Max: 15 mg OZEMPIC 1 mg/dose (4 mg/3 mL) pen injector PATIENT TAKES ON OZEMPIC subcutaneous pen INJECT 0.25 MG SUBCUTANEOUSLY ONCE A WEEK FOR DIABETES Patient not taking: Reported on 06/17/2021 documented in this encounter Miscellaneous Notes Plan of Care - Chrsity Hopper RN - 07/16/2021 1308 EDT Problem: Daily Care Plan Goals Goal: Care Plan Documentation Outcome: Met This Shift Flowsheets (Taken 07/16/2021 1237) Area of Focus: Discharge Plan Goal This Shift: Pt be able to go home Note: Pt will be going home with services. Data: A&Ox3. 6/10 pain to right knee. Trace edema right leg, +CMSTs. hemovac drains intact, draining sanguinous 30ml combined. Dressing c/d/i, CASIMIRO incision. Action: Given x2 doses of PRN oxycodone 5mg. Pt ambulating independently in the room with crutches. Worked with PT on the stairs. Educated pt on d/c instructions/pain management. Response: Pt's pain under control. Pt verbalized understanding of d/c instructions & at home pain management. Makes needs known. Christy Hopper RN 07/16/2021 16:25 Nursing Discharge Note D: Patient noted with discharge orders to: leaf size picker prescriptions, attend follow up appointments, wait to hear from home health A: Prescriptions e-scripted. Reviewed discharge instructions and prescriptions with Patient. IV d/c'd. Belongings collected and sent home with patient. R: Patient verbalized understanding of discharge instructions and denied further questions. Christy Hopper RN 07/16/2021 16:25 lan of Pallavi Deleon RN - 07/16/2021 0605 EDT Problem: High Fall Risk: Goal: Patient Will Remain Free from Fall-Related Injury Outcome: Met This Shift Problem: Daily Care Plan Goals Goal: Care Plan Documentation Outcome: Ongoing Flowsheets (Taken 07/15/2021 2100) Area of Focus: Pain/ Comfort Goal This Shift: pain will remain at tolerable level Note: Still having pain, not as bad as previous night. A&O, able to ambulate to bathroom on crutches w/minimal assistance. Right knee dressing CDI, Hemovacs (2) producing sanguinous drainage, totalovernight of 105 mL. Eating and drinking adequately, voiding. No BM. Slept most of night, VSS lan of Christy Forrester RN - 07/15/2021 1636 EDT Seng Muse admitted for Hemarthrosis following procedure C/o moderate pain in morning administered PRN dilaudid with good relief. Ambulated to bathroom with crutches and stand by bruce multiple times throughout shift. Rotation of visitors at bedside this shift. Moves with crutches continent Able to make needs known, reliable to ring. Call wells within reach. WCTM. lan of Pallavi Deleon RN - 07/15/2021 0640 EDT Problem: High Fall Risk: Goal: Patient Will Remain Free from Fall-Related Injury Outcome: Met This Shift Problem: Daily Care Plan Goals Goal: Care Plan Documentation Outcome: Ongoing Flowsheets (Taken 07/14/2021 2100) Area of Focus: Pain/ Comfort Goal This Shift: Pain will remain at a tolerable level Note: Pain early in shift, resolved with medication and ice. Slept thru most of night and states pain tolerable this am. Dressing CDI, right foot slightly edematous, Hemovacs draining sanguinous fluid.Physical assessment otherwise benign lan of Care - Christy Mccord RN - 07/14/2021 1725 EDT Seng Muse admitted for Hemarthrosis following procedure Received patient at approximately 1540. Oriented to room, call wells, etc. Performed admission assessment. C/o moderate pain. Administered PRN pain medications with good relief. Able to make needs known, reliable to ring. Call wells within reach. WCTM. documented in this encounter Plan of Treatment Upcoming Encounters Date Type Specialty Care Team Description 01/08/2022 Office Visit Orthopedic Surgery Derrell Baig MD [address] [address] (Wo rk) Scheduled Referrals Name Type Priority Associated Order Schedule Diagnoses PROVIDER FOLLOW-UP Outpatient Routine/Next Ordered: INSTRUCTIONS Referral Available 07/16/2021 AMB CONS/FOLLOW UP Outpatient Routine/Next Hemarthrosis Expected: HOME HEALTH Referral Available following 07/17/2021 SERVICES procedure, (Approximate), subsequent Expires: encounter 07/16/2022 S/P total knee arthroplasty, right documented as of this encounter Procedures Procedure Name Priority Date/Time Associated Comments Diagnosis ECG REPORT - SCANNED 07/20/2021 7:51 EDT COMPLETE BLOOD COUNT Routine 07/16/2021 6:46 Resu lts for this EDT procedure are i n the results section. COMPLETE BLOOD COUNT Routine 07/15/2021 6:45 Resu lts for this EDT procedure are i n the results section. BUN Routine 07/15/2021 6:45 Results for this EDT procedure are i n the results section. GLUCOSE, SERUM Routine 07/15/2021 6:45 Results fo r this EDT procedure are i n the results section. CREATININE Routine 07/15/2021 6:45 Results for this EDT procedure are i n the results section. ELECTROLYTES Routine 07/15/2021 6:45 Results for this EDT procedure are i n the results section. PTT STAT 07/14/2021 16:23 Results for this EDT procedure are i n the results section. PROTIME STAT 07/14/2021 16:23 Results for this EDT procedure are i n the results section. ANAEROBE Routine 07/14/2021 11:58 Results for this CULTURE/SMEAR(INC. EDT procedure are in AEROBES), OTHER the results section. ANAEROBE Routine 07/14/2021 11:57 Results for this CULTURE/SMEAR(INC. EDT procedure are in AEROBES), OTHER the results section. ANAEROBE Routine 07/14/2021 11:56 Results for this CULTURE/SMEAR(INC. EDT procedure are in AEROBES), OTHER the results section. ANAEROBE Routine 07/14/2021 11:54 Results for this CULTURE/SMEAR(INC. EDT procedure are in AEROBES), OTHER the results section. SURGICAL PATHOLOGY Routine 07/14/2021 11:51 Resul ts for this EDT procedure are i n the results section. ANAEROBE Routine 07/14/2021 11:51 Results for this CULTURE/SMEAR(INC. EDT procedure are in AEROBES), OTHER the results section. ARTHROTOMY, KNEE, 07/14/2021 10:55 Effusion of right WITH EXPLORATION, EDT knee DRAINAGE, OR FOREIGN S/P total knee BODY REMOVAL arthroplasty, right Special Needs AD Poly exchange for a 6 TS insert 13mm thick documented in this encounter Results (ABNORMAL) COMPLETE BLOOD COUNT (07/16/2021 6:46 EDT) Pathologist Sig nature WBC 6.91 4.00 - 12.40 K/cmm [facility] RBC 2.84 (L) 3.86 - 5.04 M/cmm [facility] Hemoglobin 8.6 (L) 11.6 - 15.2 gm/dL [facility] HCT 27.1 (L) 34.9 - 44.4 % [facility] MCV 95 81 - 98 fl [facility] MCH 30.3 26.7 - 33.3 pg [facility] MCHC 31.7 (L) 32.1 - 35.9 gm/dL [facility] RDW-CV 15.3 (H) <14.7 % [facility] RDW-SD 50.8 (H) <50.4 fl [facility] PLT 316 141 - 377 K/cmm [facility] MPV 9.5 9.5 - 12.7 fl [facility] Specimen Blood - Venous blood (substance) Performing Organization Address City/[facility]/ZIP Code Phon e Number [facility] [address] [place] [address] (ABNORMAL) COMPLETE BLOOD COUNT (07/15/2021 6:45 EDT) Pathologist Sig nature WBC 6.01 4.00 - 12.40 K/cmm [facility] RBC 2.67 (L) 3.86 - 5.04 M/cmm [facility] Hemoglobin 7.9 (L) 11.6 - 15.2 gm/dL [facility] HCT 24.6 (L) 34.9 - 44.4 % [facility] MCV 92 81 - 98 fl [facility] MCH 29.6 26.7 - 33.3 pg [facility] MCHC 32.1 32.1 - 35.9 gm/dL [facility] RDW-CV 14.7 (H) <14.7 % [facility] RDW-SD 47.2 <50.4 fl [facility] PLT 287 141 - 377 K/cmm [facility] MPV 9.2 (L) 9.5 - 12.7 fl [facility] Specimen Blood - Venous blood (substance) Performing Organization Address City/[facility]/ZIP Code Phon e Number [facility] [address] [place] [address] GLUCOSE, SERUM (07/15/2021 6:45 EDT) Pathologist Sig nature Glucose 95 70 - 100 mg/dL [facility] Specimen Blood - Venous blood (substance) Performing Organization Address City/[facility]/ZIP Code Phon e Number [facility] [address] [place] [address] (ABNORMAL) ELECTROLYTES (07/15/2021 6:45 EDT) Pathologist Sig [facility] Sodium 135 (L) 136 - 145 mmol/L [facility] Potassium 4.0 3.5 - 5.0 mmol/L [facility] Chloride 103 96 - 110 mmol/L [facility] CO2 Total 24 22 - 32 mmol/L [facility] Anion Gap 8 5 - 14 [facility] Specimen Blood - Venous blood (substance) Performing Organization Address [facility] Phon e Number [facility] [address] [place] [address] CREATININE (07/15/2021 6:45 EDT) Pathologist Sig [facility] Creatinine 0.62 0.52 - 1.04 mg/dL [facility] eGFR 110 >60 mL/min/1.73m2 [facility] Specimen Blood - Venous blood (substance) Performing Organization Address City/[facility]/ZIP Code Phon e Number [facility] [address] [place] [address] BUN (07/15/2021 6:45 EDT) Pathologist Sig [facility] BUN 10 10 - 26 mg/dL [facility] Specimen Blood - Venous blood (substance) Performing Organization Address [facility] Phon e Number [facility] [address] [place] [address] PTT (07/14/2021 16:23 EDT) Pathologist Sig [facility] PTT 32 26 - 37 secs [facility] AB Specimen Blood - Venous blood (substance) Performing Organization Address [facility]/ZIP [facility] Phon e Number [facility] [address] [place] [address] (ABNORMAL) PROTIME (07/14/2021 16:23 EDT) Pathologist Sig nature I.N.R. 1.1 0.9 - 1.1 Ratio [facility] Pro Time 12.7 (H) 10.4 - 12.6 secs [facility] Specimen Blood - Venous blood (substance) Narrative [facility] - 022 16:41 EDT Moderate Intensity Coumadin INR = 2.0-3.0 Adjustments in anticoagulant therapy dos e should be based on the INR and NOT on the Protime. Performing Organization Address [facility] Phon e Number [facility] [address] [place] [address] ANAEROBE CULTURE/SMEAR(INC. AEROBES), OTHER (07/14/2021 11:58 EDT) Pathologist Sig nature Organism ID No Growth [facility] Smear No Neutrophils Seen [facility] Smear No bacteria [facility] seenComment: Tissue [facility] submitted Specimen Tissue - Soft tissue (navigational marcelina pt) Performing Organization Address [facility] Phon e Number [facility] [address] [place] [address] ANAEROBE CULTURE/SMEAR(INC. AEROBES), OTHER (07/14/2021 11:57 EDT) Pathologist Sig nature Organism ID No Growth [facility] Smear No Neutrophils Seen [facility] Smear No bacteria [facility] seenComment: Tissue [facility] submitted Specimen Tissue - Soft tissue (navigational marcelina pt) Performing Organization Address [facility] Phon e Number [facility] [address] [facility] [place] [address] (ABNORMAL) ANAEROBE CULTURE/SMEAR(INC. AEROBES), OTHER (07/14/2021 11:56 EDT) Pathologist Sig nature Organism ID No Growth [facility] Smear Rare Neutrophils [facility] Present (A) [facility]ENTER [facility] Smear No bacteria seen [facility] (A)Comment: Tissue [facility] submitted Specimen Tissue - Soft tissue (navigational marcelina pt) Performing Organization Address [facility] Phon e Number [facility] [address] [facility] [place] [address] (ABNORMAL) ANAEROBE CULTURE/SMEAR(INC. AEROBES), OTHER (07/14/2021 11:54 EDT) Organism ID No Anaerobes Isolated [facility] Organism ID Growth in broth only Enterococcus faecalis (A) [facility] Comment: CENTER LAB Combination therapy is recom mended for serious enterococcal infection, ampicillin, penicillin or vancomycin AND an aminoglycoside. Synergy occurs only when both drugs are susceptible. ??Penicillin susceptible is also susceptible to ampicillin, ampicillin-sulbactam, amoxic illin, amoxicillin-clavulante and piperacillin-tazobactam. Organism ID Growth in broth only Staphylococcus coagulase ne gative (A) [facility] Comment: CENTER LAB Senstitivity not performed o n coagulase negative staph Isolate, ??Please contact Lab within 7 days for additional testing. Organism ID Growth in broth only [facility] Gram positive bacilli [facility] (A)Comment: Organism non-viable for identification. Smear Rare Neutrophils Present [facility] (A) [facility] Smear No bacteria seen [facility] (A)Comment: Tissue [facility] submitted Specimen Tissue - Soft tissue (navigational marcelina pt) Organism Antibiotic Method Susceptibility Enterococcus faecalis Benzylpenicillin VITEK SUSCEPTIBILITY 4 ug /mL: Susceptible Enterococcus faecalis Gentamicin HL VITEK SUSCEPTIBILITY S ug/ mL: Susceptible Enterococcus faecalis StreptomycinHL VITEK SUSCEPTIBILITY S ug/ mL: Susceptible Enterococcus faecalis Vancomycin VITEK SUSCEPTIBILITY 1 ug/ mL: Susceptible Performing Organization Address City/State/[facility] Code Phon e Number [facility] [address] [place] [address] SURGICAL PATHOLOGY (07/14/2021 11:51 EDT) Note to Patient The following [facility] pathology results [facility] have been interpreted by your pathologist and may be available to you before your health provider has had the opportunity to review them. Please allow time for your provider to receive these results and explore management options, if applicable. Final Diagnosis A. SOFT TISSUE, RIGHT KNEE FASCIA, BIOPSY: [facility] - No significant acute inflammation identified. [facility] B. SYNOVIUM, RIGHT KNEE, BIOPSY: - Predominantly fibrin with no significant acute infla mmation identified. C. SYNOVIUM, RIGHT KNEE, BIOPSY: - No significant acute inflammation identified. D. SYNOVIUM, RIGHT KNEE, BIOPSY: - No significant acute inflammation identified. E. SYNOVIUM, RIGHT KNEE, BIOPSY: - No significant acute inflammation identified. Attestation By the signature [facility] Electron ically below, the [facility] signed by Anay ferrari, attending physician Andres Urrutia MD on certifies that they 07/15/2021 at 1601 have 1) personally conducted a gross and/or microscopic examination of the described specimen(s), and/or personally interpreted the results of laboratory testing of the described specimen(s), and 2) personally rendered or confirmed the above diagnosis. Intraoperative A. [facility] Consultation FS DX: [facility] A) No significant acute inflammation identified (1 blo ck) Chayo Guzmán MD 07/14/21 1150 B. B) Predominantly fibrin. No significant acute inflammation identified (1 block). Chayo Guzmán MD 07/14/21 1150 C. C) No significant acute inflammation identified (1 blo ck). Chayo Guzmán MD 07/14/21 1320 D. D) No significant acute inflammation identified (2 blo cks). Chayo Guzmán MD 07/14/21 1320 E. E) No significant acute inflammation identified (1 blo ck). Chayo Guzmán MD 07/14/21 1320 Clinical History Pre-op diagnosis: [facility] Effusion of right knee [M25.461] [facility] S/P total knee arthroplasty, right [Z96.651] Gross Description A. [facility] Received fresh and labeled ? Seng L. Almaz? and ? 1? is a 2.5 x 1.0 x 0.3 cm aggregate of almanza-pink tissue fragments. Entirely submitted for frozen sections. [facility] B. Received fresh and labeled ? Seng L. Almaz? and ? 2? is a 2.0 x 1.2 x 0.3 cm aggregate of almanza pink tissue submitted intact for frozen section. C. Received fresh and labeled ? Seng L. Almaz? and ? 3? are 2 pieces of almanza-pink tissue 1 measuring 1.5 x 0.8 x 0.2 cm in the other measuring 1.5 x 1.0 x 0.3 cm. Entirely submitted for frozen section. D. Received fresh in labeled ? Seng L. Almaz? and ? 4? are 2 pieces of almanza-pink tissue 1 measuring 2.0 x 1.5 x 0.3 cm and the other measuring 2.0 x 1.0 x 0.3 cm. Each are submitted for frozen section. E. Received fresh and labeled ? Seng L. Almaz? and ? 5? is a piece of almanza pink tissue measuring 2.5 x 1.0 x 0.3 cm. Entirely submitted for frozen section. Preliminary Diagnosis Frozen Section Diagnoses: [facility] AFS1: - No significant acute inflammation identi fied (1 block). [facility] BFS1: - Predominantly fibrin . No significant acute inflammation identified (1 block). CFS1: - No significant acute inflammation identified ( 1 block). DFS1-2: - No significant acute inflammation identified (2 blocks). EFS1: - No significant acute inflammation identified ( 1 block). The above frozen section tae gnoses were performed and evaluated by Chayo Guzmán MD on 07/14/21 at [facility]. The results were called to the operating room with Dr. Anderson on 022. The slides and staining quality of all slides were adequate for evaluation. Performing Lab [facility] Scanned Images [facility] Specimen Tissue - Entire synovial membrane of mary alice nt (body structure) Tissue specimen (specimen) - Entire syno vial membrane of joint (body structure) Tissue specimen (specimen) - Entire syno vial membrane of joint (body structure) Tissue specimen (specimen) - Entire syno vial membrane of joint (body structure) Tissue specimen (specimen) - Entire syno vial membrane of joint (body structure) Performing Organization Address City/[facility]/ZIP Code Phon e Number [facility] [address] [place] [address] ANAEROBE CULTURE/SMEAR(INC. AEROBES), OTHER (07/14/2021 11:51 EDT) Pathologist Sig nature Organism ID No Growth [facility] Smear No Neutrophils Seen [facility] Smear No bacteria [facility] seenComment: Tissue [facility] submitted Specimen Tissue - Fascia biopsy sample (specimen) Performing Organization Address City/[facility]/ZIP Code Phon e Number [facility] [address] [place] [address] documented in this encounter Visit Diagnoses Diagnosis Hemarthrosis following procedure, subseq uent encounter S/P total knee arthroplasty, right Effusion of right knee Effusion of lower leg joint Effusion of right knee Effusion of lower leg joint S/P total knee arthroplasty, right documented in this encounter Admitting Diagnoses Diagnosis Effusion of right knee Effusion of lower leg joint S/P total knee arthroplasty, right documented in this encounter Administered Medications Inactive Administered Medications - up to 3 most recent administrations Medication Order MAR Action Action Date Dose Rate Site acetaminophen (TYLENOL) suppository 975 mg 975 mg, rectal, EVERY 6 HOURS, First dose on Tue 2 at 1730, Until Discontinued, Routine acetaminophen (TYLENOL) tablet 975 mg Given 07/16/2021 12:37 EDT 975 mg 975 mg (rounded from 1,000 mg), oral, EVERY 6 HOURS, First dose on Tue07/14/21 at 1730, Until Discontinued, Routine Given 07/16/2021 4:42 EDT 975 mg Given 07/15/2021 22:44 EDT 975 mg amLODIPine (NORVASC) tablet 5 mg Given 07/16/2021 8:21 EDT 5 mg 5 mg, oral, DAILY, First dose on Tue07/15/21 at 0900, Until Discontinued, Routine Given 07/15/2021 8:39 EDT 5 mg ascorbic acid (vitamin C) (VITAMIN C) tablet Given 07/15/2021 20 :27 EDT 500 mg 500 mg 500 mg, oral, AT BEDTIME, First dose on Tue07/14/21 at 2100, Until Discontinued, Routine Given 07/14/2021 20:43 EDT 500 mg aspirin chewable tablet 81 mg Given 07/16/2021 8:21 EDT 81 mg 81 mg, oral, 2 TIMES DAILY, First dose on Tue07/14/21 at 2100, Until Discontinued, Routine Given 07/15/2021 20:27 EDT 81 mg Given 07/15/2021 8:38 EDT 81 mg bupivacaine liposome (PF) (EXPAREL) 1.3 % (13.3 Given 07/14/2021 13:07 EDT 266 mg mg/mL) infiltration PRN, Starting on Tue07/14/21 at 1307, Until Tue07/14/21 at 1327, Routine, Intraprocedure calcium-vitamin D (CALTRATE D) 600 mg (1,500 Given 8:21 EDT 1 Tablet mg)-400 unit per tablet 1 Tablet 1 Tablet, oral, DAILY, First dose on Tue07/14/21 at 1630, Until Discontinued Given 07/15/2021 8:38 EDT 1 Tablet Given 07/14/2021 16:53 EDT 1 Tablet ceFAZolin in dextrose 5 % (ANCEF) IVPB DUPLEX Given 12:37 EDT 2,000 mg 2,000 mg 2,000 mg, intravenous, Administer over 30 Minutes, EVERY 8 HOURS, 6 doses, First dose (after last reorder) on Tue07/15/21 at 1200, Last dose on Tue07/17/21 at 0400, Type of Therapy: Empiric, Suspected Indication (Select all that apply): Surgical site infection, Routine Given 07/16/2021 4:42 EDT 2,000 mg Given 07/15/2021 19:53 EDT 2,000 mg cyclobenzaprine (FLEXERIL) tablet 10 mg Given 07/15/2021 20:27 EDT 10 mg 10 mg, oral, AT BEDTIME, First dose on Tue07/14/21 at 2100, Until Discontinued, Routine Given 07/14/2021 20:43 EDT 10 mg diphenhydrAMINE (BENADRYL) capsule 25 mg 25 mg, oral, EVERY 6 HOURS PRN, Starting on Tue07/14/21 at 1604, Until Tue07/16/21 at 1814, Itching, Routine diphenhydrAMINE (BENADRYL) elixir 25 mg 25 mg, oral, EVERY 6 HOURS PRN, Starting on Tue07/14/21 at 1604, Until Tue07/16/21 at 1814, Itching, Routine diphenhydrAMINE (BENADRYL) injection 25 mg 25 mg, intravenous, EVERY 6 HOURS PRN, S tarting on Tue07/14/21 at 1604, Until Tue07/16/21 at 1814, Itching, Routine docusate sodium (COLACE) capsule 200 mg Given 07/16/2021 8:20 EDT 200 mg 200 mg, oral, 2 TIMES DAILY, First dose on Tue07/14/21 at 2100, Until Discontinued, Routine Given 07/15/2021 20:27 EDT 200 mg Given 07/15/2021 8:46 EDT 200 mg DULoxetine (CYMBALTA) delayed release capsule 60 Given 07/16/2021 8:21 EDT 60 mg mg 60 mg, oral, DAILY, First dose (after last modification) on Tue07/15/21 at 0900, Until Discontinued, Routine Given 07/15/2021 8:39 EDT 60 mg ferrous sulfate EC tablet 324 mg Given 07/16/2021 8:21 EDT 324 mg 324 mg, oral, DAILY WITH BREAKFAST, First dose on Tue07/15/21 at 0800, Until Discontinued Given 07/15/2021 8:38 EDT 324 mg gabapentin (NEURONTIN) capsule 300 mg Given 07/16/2021 15:17 EDT 300 mg 300 mg, oral, 3 TIMES DAILY, First dose on Tue07/14/21 at 1630, Until Discontinued, Routine Given 07/16/2021 8:21 EDT 300 mg Given 07/15/2021 20:27 EDT 300 mg ketOROLAC (TORADOL) injection 15 mg Given 07/16/2021 10:18 EDT 15 mg 15 mg, intravenous, EVERY 6 HOURS, 20 doses, First dose on Tue07/14/21 at 1630, Last dose on Tue07/19/21 at 1030, Routine Given 07/16/2021 4:42 EDT 15 mg Given 07/15/2021 22:44 EDT 15 mg methocarbamoL (ROBAXIN) tablet 500 mg Given 07/16/2021 2:13 EDT 500 mg 500 mg, oral, 3 TIMES DAILY PRN, Starting on Tue07/14/21 at 1608, Until Tue07/16/21 at 1814, spasms, Routine morphine PF injection 1 mg Given 07/14/2021 22:53 EDT 1 mg 1 mg, intravenous, EVERY 2 HOURS PRN, Starting on Tue07/14/21 at 1604, Until Tue07/16/21 at 1814, Pain, breakthrough pain, Routine multivitamin-iron fumarate-FA (THERA-M PLUS) Given 06/2021 16:07 EDT 1 Tablet 9 mg iron-400 mcg tablet 1 Tablet 1 Tablet, oral, DAILY WITH DINNER, First dose on Tue07/14/21 at 1700, Until Discontinued, Routine Given 07/14/2021 16:54 EDT 1 Tablet ondansetron (PF) (ZOFRAN) injection 4 mg 4 mg, intravenous, EVERY 6 HOURS PRN, Starting on Tue07/14/21 at 1604, Until Tue07/16/21 at 1814, Nausea, Vomiting, Routine ondansetron (ZOFRAN-ODT) disintegrating tablet 4 mg 4 mg, oral, EVERY 6 HOURS PRN, Starting on Tue07/14/21 at 1604, Until Tue07/16/21 at 1814, Nausea, Routine oxyCODONE (ROXICODONE) immediate release tablet Given 2021 2:13 EDT 10 mg 10 mg 10 mg, oral, EVERY 4 HOURS PRN, Starting on Tue07/14/21 at 1604, Until Tue07/16/21 at 1814, Pain, Severe Pain (7-10), Routine Given 07/15/2021 20:26 EDT 10 mg Given 07/15/2021 9:42 EDT 10 mg oxyCODONE (ROXICODONE) immediate release tablet 5 Given 07/16/2021 15:17 EDT 5 mg mg 5 mg, oral, EVERY 4 HOURS PRN, Starting on Tue07/14/21 at 1604, Until Tue07/16/21 at 1814, Pain, Moderate Pain (4-6), Routine Given 07/16/2021 8:24 EDT 5 mg Given 07/14/2021 17:53 EDT 5 mg pantoprazole (PROTONIX) tablet 40 mg Given 07/16/2021 8:21 EDT 40 mg 40 mg, oral, DAILY, First dose on Tue07/14/21 at 1630, Until Discontinued, Routine Given 07/15/2021 8:39 EDT 40 mg polyethylene glycol 3350 (MIRALAX) packe t 17 g Given 07/15/2021 8:46 EDT 17 g 17 g, oral, DAILY, First dose on Tue07/15/21 at 0900, Until Discontinued, Routine senna (SENOKOT) tablet 2 Tablet Given 07/15/2021 20:26 EDT 2 Tablets 2 Tablet, oral, 2 TIMES DAILY, First dose on Tue07/14/21 at 2100, Until Discontinued, Routine Given 07/15/2021 8:47 EDT 2 Tablets Given 07/14/2021 20:43 EDT 2 Tablets zinc sulfate (ZINCATE) capsule 220 mg Given 07/16/2021 12:37 EDT 220 mg 220 mg, oral, DAILY WITH LUNCH, 10 doses, First dose on Tue07/15/21 at 1200, Last dose on Tue07/24/21 at 1200, Routine Given 07/15/2021 12:05 EDT 220 mg documented in this encounter Discontinued Medications Medication Sig Discontinue Reason Start Date End Date oxyCODONE (ROXICODONE) Take 1 Tablet by Reorder 07/08/2021 0 07/16/2021 5 mg immediate release mouth every 8 hours tablet as needed for Pain (Severe Pain (7-10)). Daily Max: 15 mg aspirin 325 mg tablet Take 1 Tablet by Stop Taking at 07/01/2021 07/16/2021 mouth 2 times daily Discharge for 28 days. cephalexin (KEFLEX) Take 1 capsule by Stop Taking at 07/08/2021 0 07/16/2021 500 mg mouth 4 times daily Discharge capsuleIndications: for 7 days. Status post right knee replacement, Pain and swelling of right knee documented as of this encounter Active and Recently Administered Medications Times are shown in EDT. Scheduled Medication Order 07/14/2021 07/15/2021 07/16/2021 acetaminophen (TYLENOL) suppository 975 mg(Linked Grou p 1) 1654 (See Alternative - Provider: Christy Mccord RN)2252 (See Alternative - Provider: Pallavi Thurman RN) 0527 (See Alternative - Provider: Kaitlynn Thurman RN)1205 (See Alternative - Provider: Christy Mccord RN)1632 (See Alternative - Provider: Christy Mccord RN)2244 (See Alternative - Provider: Pallavi Tuhrman RN) 0442 (See Alternative - Provider: Pallavi Thurman RN)1237 (See Alternative - Provider: Christy Hopper RN)1730 (Canceled Entry - Provider: Batch Job User Admin - Comment: Automatically canceled at discontinue of medication order) 975 mg, rectal, EVERY 6 HOURS, First dos e on Tue07/14/21 at 1730, Until Discontinued, Routine acetaminophen (TYLENOL) tablet 975 mg (COMPLETED) 09 (Given - Provider: Tigist Robles RN) 975 mg, oral, PRE-OP ONCE, 1 dose, On Tue07/14/21 at 09 15, Routine, Preprocedure acetaminophen (TYLENOL) tablet 975 mg(Linked Group 1) 1654 (Given - Provider: Christy Mccord RN)2252 (Given - Provider: Pallavi Thurman RN) 0527 (Given - Provider: Pallavi Thurman RN)1205 (Given - Provider: Christy Mccord RN)1632 (Given - Provider: Christy Mccord RN)2244 (Given - Provider: Pallavi Thurman RN) 0442 (Given - Provider: Pallavi Thurman RN)1237 (Given - Provider: Christy Hopper RN)1730 (Canceled Entry - Provider: Batch Job User Admin - Comment: Automatically canceled at discontinue of medication order) 975 mg (rounded from 1,000 mg), oral, EV JACINTO 6 HOURS, First dose on Tue07/14/21 at 1730, Until Discontinued, Routine amLODIPine (NORVASC) tablet 5 mg 0839 (Given - P rovider: Christy Mccord RN) 0821 (Given - Provider: Christy Hopper RN) 5 mg, oral, DAILY, First dose on 07/15 at 0900, Until Discontinued, Routine ascorbic acid (vitamin C) (VITAMIN C) tablet 500 mg 20 43 (Given - Provider: Pallavi Thurman RN) 2026 (Given - Provider: Pallavi Thurman RN) 500 mg, oral, AT BEDTIME, First dose on Tue07/14/21 at 2100, Until Discontinued, Routine aspirin chewable tablet 81 mg 2042 (Given - Provider: Kaitlynn Thurman RN) 0838 (Given - Provider: Christy Mccord RN)2026 (Given - Provider: Pallavi Thurman RN) 0821 (Given - Provider: Christy Hopper RN) 81 mg, oral, 2 TIMES DAILY, First dose o n Tue07/14/21 at 2100, Until Discontinued, Routine calcium-vitamin D (CALTRATE D) 600 mg (1,500 mg)-400 u nit per tablet 1 Tablet 1653 (Given - Provider: Christy Mccord RN) 0838 (Given - Provider: Christy Mccord RN) 0821 (Given - Provider: Christy Hopper RN) 1 Tablet, oral, DAILY, First dose on Tue07/14/21 at 1630, Until D iscontinued ceFAZolin in dextrose 5 % (ANCEF) IVPB DUPLEX 2,000 mg (COMPLETED) 1443 (Given - Provider: Lynda Martin RN) 2,000 mg, intravenous, Administer over 3 0 Minutes, NOW X1, 1 dose, On Tue07/14/21 at 1445, Type of Therapy: Prophylaxis, Suspected Indication (Select all that apply): Surgical prophylaxis, Routine, Recovery (only) ceFAZolin in dextrose 5 % (ANCEF) IVPB DUPLEX 2,000 mg (COMPLETED) 1942 (Given - Provider: Pallavi Thurman RN) 0408 (Given - Provider: Pallavi Thurman RN) 2,000 mg, intravenous, Administer over 3 0 Minutes, EVERY 8 HOURS, 2 doses, First dose on Tue07/14/21 at 2000, Last dose on Tue07/15/21 at 0400, Type of Therapy: Prophylaxis, Suspected Indication (Select all that apply): Surgical prophylaxis, Routine ceFAZolin in dextrose 5 % (ANCEF) IVPB DUPLEX 2,000 mg 1208 (Given - Provider: Christy Mccord RN)195 (Given - Provider: Pallavi Thurman RN) 0442 (Given - Provider: Pallavi Thurman RN)1237 (Given - Provider: Christy Hopper RN) 2,000 mg, intravenous, Administer over 3 0 Minutes, EVERY 8 HOURS, 6 doses, First dose (after last reorder) on Tue07/15/21 at 1200, Last dose on Tue07/17/21 at 0400, Type of Therapy: Empiric, Suspected Ind ication (Select all that apply): Surgical site infection, Routin e celecoxib (CELEBREX) capsule 200 mg (COMPLETED) 922 ( Given - Provider: Tigist Robles RN) 200 mg, oral, PRE-OP ONCE, 1 dose, On Tue07/14/21 at 09 15, Routine, Preprocedure cholecalciferol (Vitamin D3) tablet 2,000 Units 165 ( Not Given - Provider: Christy Mccord RN - Reason: Other - Comment: pt reports taking weekly vit D dose on 07/10/21) 1631 (Not Given - Provider: Christy Mccord RN - Reason: Other - Comment: pt took weekly dose 07/10) 1700 (Canceled Entry - Provider: Batch J ob User Admin - Comment: Automatically canceled at discontinue of medication order) 2,000 Units, oral, DAILY WITH DINNER, 10 doses, First dose on Tue07/14/21 at 1700, Last dose on Tue07/23/21 at 1700, Routine cyclobenzaprine (FLEXERIL) tablet 10 mg 2042 (Given - Provider: Pallavi Thurman, SUSI) 2026 (Given - Provider: Pallavi Thurman RN) 10 mg, oral, AT BEDTIME, First dose on 07/14/21 at 2100, Until Discontinued, Routine docusate sodium (COLACE) capsule 200 mg 204 (Given - Provider: Pallavi Thurman, SUSI) 0846 (Given - Provider: Christy Mccord RN)2 (Given - Provider: Pallavi Thurman RN) 0820 (Given - Provider: Christy Hopper, SUSI) 200 mg, oral, 2 TIMES DAILY, First dose on Tue07/14/21 at 2100, Until Discontinued, Routine DULoxetine (CYMBALTA) delayed release capsule 60 mg 0839 (Given - Provider: Christy Mccord RN) 0821 (Given - Provider: Christy Hopper, SUSI) 60 mg, oral, DAILY, First dose (after la st modification) on Tue07/15/21 at 0900, Until Discontinued, Routine ferrous sulfate EC tablet 324 mg 0838 (Given - P rovider: Christy Mccord RN) 0821 (Given - Provider: Christy Hopper, SUSI) 324 mg, oral, DAILY WITH BREAKFAST, Firs t dose on Tue07/15/21 at 0800, Until Discontinued gabapentin (NEURONTIN) capsule 300 mg 165 (Given - Pr ovider: Christy Mccord RN)2042 (Given - Provider: Pallavi Thurman RN) 0839 (Given - Provider: Christy Mccord RN)1455 (Given - Provider: Christy Mccord RN)2026 (Given - Provider: Pallavi Thurman RN) 0821 (Given - Provider: Christy Hopper RN)1517 (Given - Provider: Christy Hopper RN) 300 mg, oral, 3 TIMES DAILY, First dose on Tue07/14/21 at 1630, Until Discontinued, Routine gabapentin (NEURONTIN) capsule 600 mg (COMPLETED) 922 (Given - Provider: Tigist Robles RN) 600 mg, oral, PRE-OP ONCE, 1 dose, On Tue07/14/21 at 09 15, Routine, Preprocedure ketOROLAC (TORADOL) injection 15 mg 1816 (Not Given - Provider: Christy Mccord RN - Reason: Other - Comment: too close to previous dose)2150 (Given - Provider: Pallavi Thurman RN) 0408 (Given - Provider: Flaquita Wong)0942 (Given - Provider: Christy Mccord RN)1607 (Given - Provider: Christy Mccord RN)2244 (Given - Provider: Pallavi Thurman RN) 0442 (Given - Provider: Flaquita Wong)1018 (Given - Provider: Christy Hopper RN)1630 (Canceled Entry - Provider: Batch Job User Admin - Comment: Automatically canceled at discontinue of medication order) 15 mg, intravenous, EVERY 6 HOURS, 20 do ses, First dose on Tue07/14/21 at 1630, Last dose on Tue07/19/21 at 1030, Routine methocarbamoL (ROBAXIN) tablet 500 mg (COMPLETED) 922 (Given - Provider: Tigist Robles RN) 500 mg, oral, PRE-OP ONCE, 1 dose, On Tue07/14/21 at 09 15, Routine, Preprocedure multivitamin-iron fumarate-FA (THERA-M PLUS) 9 mg iron -400 mcg tablet 1 Tablet 165 (Given - Provider: Christy Mccord RN) 1607 (Given - Provider: Christy Mccord RN) 1700 (Canceled Entry - Provider: Batch Job User Admin - Comment: Automatically canceled at discontinue of medication order) 1 Tablet, oral, DAILY WITH DINNER, First dose on Tue07/14/21 at 1700, Until Discontinued, Routine pantoprazole (PROTONIX) tablet 40 mg 1658 (Not Given - Provider: Christy Mccord RN - Reason: Patient/family refused) 0839 (Given - Provider: Christy Mccord RN) 0821 (Given - Provider: Christy Hopper RN) 40 mg, oral, DAILY, First dose on 06/02 at 1630, Until Discontinued, Routine polyethylene glycol 3350 (MIRALAX) packet 17 g 0846 (Given - Provider: Christy Mccord RN) 0819 (Not Given - Provider: Christy cornejo RN - Reason: Patient/family refused) 17 g, oral, DAILY, First dose on 07/15 at 0900, Until Discontinued, Routine senna (SENOKOT) tablet 2 Tablet 2042 (Given - Provider: Bozena Thurman RN) 0847 (Given - Provider: Christy Mccord RN)2025 (Given - Provider: Pallavi Thurman RN) 0820 (Not Given - Provider: Christy Hopper RN - Reason: Patient/family refused) 2 Tablet, oral, 2 TIMES DAILY, First dos e on Tue07/14/21 at 2100, Until Discontinued, Routine zinc sulfate (ZINCATE) capsule 220 mg 1205 (Give n - Provider: Christy Mccord RN) 1237 (Given - Provider: Christy Hopper RN) 220 mg, oral, DAILY WITH LUNCH, 10 doses , First dose on Tue07/15/21 at 1200, Last dose on Tue07/24/21 at 1200, Routine Continuous Medication Order 07/14/2021 07/15/2021 07/16/2021 lactated ringers (LR) infusion (CANCELED) 1028 (New Ba g - Provider: Tigist Robles RN)1111 (Continued by Anesthesia - Provider: Kathrin Mcneil CRNA)1120 (Paused - Provider: Kathrin Mcneil CRNA - Comment: Switch to gravity)1121 (Restarted - Provider: Kathrin Mcneil CRNA) at 25 mL/hr, intravenous, CONTINUOUS, St arting on Tue07/14/21 at 0915, Until Tue07/14/21 at 1608, Routine, Preprocedure 1309 (Anesthesia Volume Adjustment - Provider: Kathrin Mcneil CRNA) lactated ringers (LR) infusion (CANCELED) 1707 (New Ba g - Provider: Christy Mccord RN) 0714 (New Bag - Provider: Christy Mccord RN) at 75 mL/hr, intravenous, CONTINUOUS, St arting on Tue07/14/21 at 1630, Until Tue07/15/21 at 1745, Routine PRN Medication Order 07/14/2021 07/15/2021 07/16/2021 bisacodyL (DULCOLAX) suppository 10 mg 10 mg, rectal, DAILY PRN, Starting on 07/14/21 at 1604, Until Ofe 07/16/21 at 1814, Constipation, Routine bupivacaine liposome (PF) (EXPAREL) 1.3 % (13.3 mg/mL) infiltration (CANCELED) 1307 (Given - Provider: Donnie Baig MD - Comment: Diluted with 40mL of saline, and 30mL of the mixture was administered) PRN, Starting on Tue07/14/21 at 1307, Unt il Tue07/14/21 at 1327, Routine, Intraprocedure diphenhydrAMINE (BENADRYL) capsule 25 mg(Linked Group 2) 25 mg, oral, EVERY 6 HOURS PRN, Starting on Tue07/14/21 at 1604, Until Tue07/16/21 at 1814, Itching, Routine diphenhydrAMINE (BENADRYL) elixir 25 mg(Linked Group 2) 25 mg, oral, EVERY 6 HOURS PRN, Starting on Tue07/14/21 at 1604, Until Tue07/16/21 at 1814, Itching, Routine diphenhydrAMINE (BENADRYL) injection 25 mg(Linked Group 2) 25 mg, intravenous, EVERY 6 HOURS PRN, S tarting on Tue07/14/21 at 1604, Until Tue07/16/21 at 1814, Itching, Routine ketOROLAC (TORADOL) injection 30 mg (CANCELED) 1443 (G iven - Provider: Lynda Martin, SUSI) 30 mg, intravenous, PRN, Starting on Tue07/14/21 at 1416, Until Tue07/14/21 at 1552, Pain, Routine, Recovery (only) loperamide (IMODIUM) capsule 2 mg 2 mg, oral, 4 TIMES DAILY PRN, Starting on Tue07/14/21 at 1608, Until Ofe 07/16/21 at 1814, Diarrhea methocarbamoL (ROBAXIN) tablet 500 mg 0213 (Given - Provider: Pallavi Thurman RN) 500 mg, oral, 3 TIMES DAILY PRN, Startin g on Tue07/14/21 at 1608, Until Ofe 07/16/21 at 1814, spasms, Routine morphine PF injection 1 mg 2252 (Given - Provider: Pallavi Thurman RN) 1 mg, intravenous, EVERY 2 HOURS PRN, St arting on Tue07/14/21 at 1604, Until Ofe 07/16/21 at 1814, Pain, breakthrough pain, Routine ondansetron (PF) (ZOFRAN) injection 4 mg(Linked Group 3) 4 mg, intravenous, EVERY 6 HOURS PRN, St arting on Tue07/14/21 at 1604, Until Ofe 07/16/21 at 1814, Nausea, Vomiting, Routine ondansetron (ZOFRAN-ODT) disintegrating tablet 4 mg(Linked Group 3) 4 mg, oral, EVERY 6 HOURS PRN, Starting on Tue07/14/21 at 1604, Until Ofe 07/16/21 at 1814, Nausea, Routine oxyCODONE (ROXICODONE) immediate release tablet 10 mg( Linked Group 4) 1651 (See Alternative - Provider: Christy Mccord RN)175 (See Alternative - Provider: Christy Mccord RN)215 (Given - Provider: Pallavi Thurman RN) 0942 (Given - Provider: Christy Mccord RN)2025 (Given - Provider: Pallavi Thurman RN) 0213 (Given - Provider: Pallavi Thurman RN)0824 (See Alternative - Provider: Christy Hopper RN)1517 (See Alternative - Provider: Christy Hopper RN) 10 mg, oral, EVERY 4 HOURS PRN, Starting on Tue07/14/21 at 1604, Until Ofe 07/16/21 at 1814, Pain, Severe Pain (7-10), Routine oxyCODONE (ROXICODONE) immediate release tablet 5 mg(L inked Group 4) 1651 (Given - Provider: Christy Mccord RN)175 (Given - Provider: Christy Mccord RN)2150 (See Alternative - Provider: Pallavi Thurman RN) 0942 (See Alternative - Provider: Christy Mccord, SUSI)2025 (See Alternative - Provider: Pallavi Thurman, RN) 0213 (See Alternative - Provider: Pallavi Thurman, RN)0824 (Given - Provider: Christy Hopper, RN)1517 (Given - Provider: Christy Hopper, RN) 5 mg, oral, EVERY 4 HOURS PRN, Starting on Tue07/14/21 at 1604, Until Tue07/16/21 at 1814, Pain, Moderate Pain (4-6), Routine sodium chloride 0.9 % (flush) flush 5 mL 5 mL, intravenous, PRN, Starting on Tue07/14/21 at 1604, Until Tue07/16/21 at 1814, Line Care, Routine Linked Groups Order Group 1: acetaminophen (TYLENOL) tablet 975 mgJump to med 975 mg (rounded from 1,000 mg), oral, EV JACINTO 6 HOURS, First dose on Tue07/14/21 at 1730, Until Discontinued, Routine Or acetaminophen (TYLENOL) suppository 975 mgJump to med 975 mg, rectal, EVERY 6 HOURS, First dos e on Tue07/14/21 at 1730, Until Discontinued, Routine Group 2: diphenhydrAMINE (BENADRYL) elixir 25 mgJump to med 25 mg, oral, EVERY 6 HOURS PRN, Starting on Tue07/14/21 at 1604, Until Tue07/16/21 at 1814, Itching, Routine Or diphenhydrAMINE (BENADRYL) injection 25 mgJump to med 25 mg, intravenous, EVERY 6 HOURS PRN, S tarting on Tue07/14/21 at 1604, Until Ofe 07/16/21 at 1814, Itching, Routine Or diphenhydrAMINE (BENADRYL) capsule 25 mgJump to med 25 mg, oral, EVERY 6 HOURS PRN, Starting on Tue07/14/21 at 1604, Until Tue07/16/21 at 1814, Itching, Routine Group 3: ondansetron (PF) (ZOFRAN) injection 4 mgJump to med 4 mg, intravenous, EVERY 6 HOURS PRN, St arting on Tue07/14/21 at 1604, Until Ofe 07/16/21 at 1814, Nausea, Vomiting, Routine Or ondansetron (ZOFRAN-ODT) disintegrating tablet 4 mgJump to med 4 mg, oral, EVERY 6 HOURS PRN, Starting on Tue07/14/21 at 1604, Until Ofe 07/16/21 at 1814, Nausea, Routine Group 4: oxyCODONE (ROXICODONE) immediate release tablet 5 mgJump to med 5 mg, oral, EVERY 4 HOURS PRN, Starting on Tue07/14/21 at 1604, Until Ofe 07/16/21 at 1814, Pain, Moderate Pain (4-6), Routine Or oxyCODONE (ROXICODONE) immediate release tablet 10 mgJump to med 10 mg, oral, EVERY 4 HOURS PRN, Starting on Tue07/14/21 at 1604, Until Ofe 07/16/21 at 1814, Pain, Severe Pain (7-10), Routine documented in this encounter Orders Medications Ordered That Might Not Have Count Last Ord ered Date First Ordered Date Been Administered ceFAZolin in dextrose 5 % (ANCEF) IVPB 3 2 07/14/2021 DUPLEX 2,000 mg DULoxetine (CYMBALTA) delayed release 1 07/15/2021 capsule 60 mg acetaminophen (TYLENOL) suppository 975 mg 1 07/14 acetaminophen (TYLENOL) tablet 975 mg 2 07/14/2021 amLODIPine (NORVASC) tablet 5 mg 1 07/14/2021 ascorbic acid (vitamin C) (VITAMIN C) 2 07/14/2021 tablet 500 mg aspirin chewable tablet 81 mg 1 07/14/2021 bisacodyL (DULCOLAX) suppository 10 mg 1 2 calcium-vitamin D (CALTRATE D) 600 mg 1 07/14/2021 (1,500 mg)-400 unit per tablet 1 Tablet celecoxib (CELEBREX) capsule 200 mg 1 07/14/2021 chlorhexidine gluconate 0.05 % in water 07/15/19 (IRRISEPT) irrigation 450 mL cholecalciferol (Vitamin D3) tablet 2,000 1 2021 Units cyclobenzaprine (FLEXERIL) tablet 10 mg 1 07/14/20 22 diphenhydrAMINE (BENADRYL) capsule 25 mg diphenhydrAMINE (BENADRYL) elixir 25 mg 07/15/19 diphenhydrAMINE (BENADRYL) injection 25 mg 07/14 diphenhydrAMINE (BENADRYL) injection 6.25 1 2021 mg docusate sodium (COLACE) capsule 200 mg 07/15/19 DULoxetine (CYMBALTA) delayed release 07/14/2021 capsule 40 mg fentaNYL citrate (PF) injection 25 mcg ferrous sulfate EC tablet 324 mg 07/14/2021 gabapentin (NEURONTIN) capsule 300 mg 07/14/2021 gabapentin (NEURONTIN) capsule 600 mg 07/14/2021 HYDROmorphone (PF) (DILAUDID) 0.5 mg/0.5 mL syringe 0.5 mg ketOROLAC (TORADOL) injection 15 mg 07/14/2021 ketOROLAC (TORADOL) injection 30 mg 1 07/14/2021 lactated ringers (LR) infusion 3 07/14/2021 lidocaine (PF) 10 mg/mL (1 %) injection 2 1 2021 mg loperamide (IMODIUM) capsule 2 mg 07/14/2021 methocarbamoL (ROBAXIN) tablet 500 mg 3 07/14/2021 morphine PF injection 1 mg 07/14/2021 multivitamin-iron fumarate-FA (THERA-M 2 PLUS) 9 mg iron-400 mcg tablet 1 Tablet ondansetron (PF) (ZOFRAN) injection 4 mg ondansetron (ZOFRAN-ODT) disintegrating 07/15/19 tablet 4 mg oxyCODONE (ROXICODONE) immediate release tablet 10 mg oxyCODONE (ROXICODONE) immediate release tablet 5 mg oxyCODONE (ROXICODONE) immediate release tablet 5-10 mg pantoprazole (PROTONIX) tablet 40 mg 07/14/2021 polyethylene glycol 3350 (MIRALAX) packet 1 2021 17 g scopolamine (TRANSDERM-SCOP) 1 mg over 3 1 022 days patch 1 Patch senna (SENOKOT) tablet 2 Tablet 1 07/14/2021 sodium chloride 0.9 % (flush) flush 5 mL 1 022 zinc sulfate (ZINCATE) capsule 220 mg 1 07/14/2021 Procedures Count Last Ordered Date First Ordered Date ECG REPORT - SCANNED 1 07/20/2021 Diet Count Last Ordered Date First Ordered Date DISCHARGE DIET 1 07/16/2021 Nursing Count Last Ordered Date First Ordered Date ACTIVITY INSTRUCTIONS 1 07/16/2021 BATHING INSTRUCTIONS 1 07/16/2021 WOUND CARE INSTRUCTIONS 1 07/16/2021 VTE PHARMACOLOGIC PROPHYLAXIS CURRENTLY 1 07/15/19 22 ORDERED OR ON ALTERNATIVE THER OT Count Last Ordered Date First Ordered Date OT EVALUATION AND TREAT 1 07/14/2021 Admission Count Last Ordered Date First Ordered Date ADMIT TO INPATIENT 1 07/14/2021 Discharge Count Last Ordered Date First Ordered Date DISCHARGE PATIENT 1 07/16/2021 Legal Count Last Ordered Date First Ordered Date MISCELLANEOUS DISCHARGE INSTRUCTIONS 3 07/16/2021 documented in this encounter Care Teams Evaporator Repairer Relationship Specialty Start Date End Date Toyin Frias NP PCP - General 05/07/21 [address] [place] [phone] documented as of this encounter
--- OUTSIDE RECORDS SUMMARY | 2021-10-09 00:06 | XMS_ITS | Encounter Summary ---
:1975 Author Organization [facility] Address [address] [place] [address] Care Team Providers Name Role Phone Toyin Frias NP Primary Care Provider Encounter Details Date Type Department Care Team Description 07/13/2021 Travel Social History Tobacco Use Types Packs/Day Years [...] have Coronavirus/COVID-19? documented as of this encounter Functional Status Functional Status Response Date of Assessment Are you deaf or do you have serious difficulty hearing? No 07/04/2021 Are you blind or do you have serious difficulty seeing, No 06/30/2021 even when wearing glasses? Do you have serious difficulty walking or climbing No 06/30/2021 stairs? (5 years old or older) Do you have difficulty dressing or bathing? (5 years old No 06/30/2021 or older) Because of a physical, mental, or emotional condition, do No 06/30/2021 you have difficulty doing errands alone such as visiting a doctor's office or shopping? (15 years old or older) Cognitive Status Response Date of Assessment Because of a physical, mental, or emotional condition, do No 06/30/2021 you have serious difficulty concentrating, remembering, or making decisions? (5 years old or older) documented as of this encounter Plan of Treatment Upcoming Encounters Date Type Specialty Care Team Description 01/08/2022 Office Visit Orthopedic Surgery Derrell Baig MD [address] [id number] (Wo rk) documented as of this encounter Visit Diagnoses Not on filedocumented in this encounter Care Teams Barker Operator Relationship Specialty Start Date End Date Toyin Frias NP PCP - General 05/07/[address] [place] [phone] documented as of this encounter
--- OUTSIDE RECORDS SUMMARY | 2021-10-09 00:06 | XMS_ITS | Encounter Summary ---
:1975 Author Organization [facility] Address [address] [place] [address] Care Team Providers Name Role Phone Toyin Frias NP Primary Care Provider Reason for Visit Referral (Routine/Next Available) - Closed Specialty Diagnoses / Procedures Referred By Contact Refer red To Contact Pain Medicine Diagnoses Facet arthropathy, lumbar DDD (degenerative disc disease), lumbar Chronic bilateral low back pain with bilateral sciatica Gail Gilmore, MARIUSZ [facility] Procedures MEDIAL BRANCH BLOCK [address] [place] [address] [place] [address] Referral ID Status Reason Start Date Expiration Date Visits Requ ested Visits Authorized [id number] Closed 04/06/2021 1 1 Encounter Details Date Type Department Care Team Description 07/31/2021 Hospital Encounter [facility] - YuliaCyrus Canceled (Patient: [facility] MD Jeannette Feeling Better/No [address] Longer Needed) [place] [address] [address] [place] [address] Social History Tobacco Use Types Packs/Day Years [...] in contact with No / Unsu re 07/31/2021 16:34 EDT someone who was confirmed or suspected [...] or older) documented as of this encounter Medications at Time of Discharge Medication Sig Dispensed Refills Start Date End Date acetaminophen/diphenhydr Take 2 Tablets by mouth 0 amine (TYLENOL PM ORAL) at bedtime. amLODIPine (NORVASC) 5 Take 5 mg by mouth 0 06/12 mg tablet daily. ascorbic acid, vitamin at bedtime. 0 C, (VITAMIN C) 500 mg tablet Calcium Carbonate 600 mg 2 tab(s) orally twice a 0 calcium (1,500 mg) day tablet celecoxib (CELEBREX) 200 Take 200 mg by mouth 2 0 02/11/2019 mg capsule times daily. cyanocobalamin (VITAMIN Take by mouth four 0 B-12) 500 mcg tablet times a week. cyclobenzaprine Take 10 mg by mouth at 0 03/29/19 20 (FLEXERIL) 10 mg tablet bedtime. diclofenac sodium 1 % Apply 2 g topically if 0 gel needed. DULoxetine (CYMBALTA) 60 0 01/15/2019 mg capsule ergocalciferol (DRISDOL; 1 cap(s) orally once a 0 06/23/2016 VITAMIN D2) 1,250 mcg week (50,000 unit) capsule ferrous sulfate 325 mg Take 325 mg by mouth 0 (65 mg iron) tablet daily. gabapentin (NEURONTIN) TAKE 1 TO 3 CAPSULES 0 09/2019 300 mg capsule ORALLY 3 TIMES A DAY FOR CHRONIC PAIN loperamide (IMODIUM A-D) Take by mouth 4 times 0 2 mg tablet daily as needed. methocarbamoL (ROBAXIN) Take 1 Tablet by mouth 90 Tablet 0 05/07/2021 500 mg tablet 3 times daily as needed for Muscle Spasms. multivitamin capsule 1 cap(s) orally twice a 0 day omeprazole (PRILOSEC) 20 0 04/02/2019 mg capsule oxyCODONE (ROXICODONE) 5 Take 1 Tablet by mouth 9 Tablet 0 07/16/2021 mg immediate release every 8 hours as needed tablet for Pain (Severe Pain (7-10)). Daily Max: 15 mg OZEMPIC 1 mg/dose (4 PATIENT TAKES ON 0 2 mg/3 mL) pen injector OZEMPIC subcutaneous pen INJECT 0.25 MG 0 022 SUBCUTANEOUSLY ONCE A WEEK FOR DIABETES documented as of this encounter Discharge Disposition Disposition Code Departure Means Destination Home or Self Care documented in this encounter Plan of Treatment Upcoming Encounters Date Type Specialty Care Team Description 01/08/2022 Office Visit Orthopedic Surgery Derrell Baig MD [address] [id number] (Wo rk) documented as of this encounter Visit Diagnoses Not on filedocumented in this encounter Care Teams Data Specialist Relationship Specialty Start Date End Date Toyin Frias NP PCP - General 05/07/[address] [place] [phone] documented as of this encounter
--- OUTSIDE RECORDS SUMMARY | 2021-10-09 00:06 | XMS_ITS | Encounter Summary ---
:1975 Author Organization [facility] Address [address] [place] [address] Care Team Providers Name Role Phone Toyin Frias NP Primary Care Provider Reason for Referral PT/OT/ST (Routine/Next Available) - Authorization Not Required Specialty Diagnoses / Procedures Referred By Contact Refer red To Contact Diagnoses Total knee replacement status, right Erendira Jewell NP [address] [facility] [address] [place] [address] Referral ID Status Reason Start Expiration Visits Visits Date Date Requested Authorized [id number] Authorization Specialty 1 1 Not Required Services 2 Required Question Answer Reason for Request: s/p right TKR 06/30/21 Practice Site (External Referral Only): [facility]. Reason for Visit Reason Comments Drainage from Incision Encounter Details Date Type Department Care Team Description 07/06/2021 Nurse Only [facility] - [place], [facility] [place] [facility] status, r ight (Primary Sport Medicine Dx) [address] [place] [address] Social History Tobacco Use Types Packs/Day Years [...] in contact with No / Unsu re 07/04/2021 20:32 EDT someone who was confirmed or suspected [...] or older) documented as of this encounter Progress Notes Germaine Catherine LPN - 07/06/2021 1600 EDT Seng presented today for continued bleeding from her right TKR (distal quarter of incision). Dressings removed with 25% of dressing covered in red bloody drainage. Seng reports this is the third dressing that has come off and the other 2 were about 50% covered in red bloody drainage. SR in to see patient and probed incision with a Sterile q-tip to better assess the incision for tunneling. She was able to insert the q-tip through an opening in the incsion 1- 2 cm, allowing for a signifiacnt amount darker red pooled blood to drain from the incision. SR gently massaged the knee to encourage the pooled blood to drain. Area was dressed with a silver mepilex foam, Sterile gauze and francesca. Tubi nurse transitional and sahil wrap for compression applied. New appointment scheduled with CM for Tuesday07/06/21. Outpatient PT order placed. documented in this encounter Plan of Treatment Upcoming Encounters Date Type Specialty Care Team Description 01/08/2022 Office Visit Orthopedic Surgery Derrell Baig MD [address] [phone] (Wo rk) Scheduled Referrals Name Type Priority Associated Order Schedule Diagnoses AMB CONS/FOLLOW Outpatient Routine/Next Total knee Expected: UP PHYSICAL Referral Available replacement status, 08/06/19 THERAPY - right (Approximate), OUTSIDE OF Expires: NETWORK 07/06/2022 documented as of this encounter Visit Diagnoses Diagnosis Total knee replacement status, right - P rimary documented in this encounter Care Teams Hairspring I Inspector Relationship Specialty Start Date End Date Toyin Frias NP PCP - General 05/07/[address] [place] [phone] documented as of this encounter
--- OUTSIDE RECORDS SUMMARY | 2021-10-09 00:06 | XMS_ITS | Encounter Summary ---
:1975 Author Organization [facility] Address [address] [place] [address] Care Team Providers Name Role Phone Toyin Frias NP Primary Care Provider Reason for Visit Reason Comments Follow-up Encounter Details Date Type Department Care Team Description 10/02/[address] [facility] - Reggie Baig S/P total knee [facility] Orthoped[facility] & M, arthroplasty, right Sport Medicine [address] [place] (Primary Dx) [address], [facility] [address] [place] [address] [place] [address] [phone] (Wo rk) Social History Tobacco Use Types Packs/Day Years [...] in contact with No / Unsu re 10/02/2021 14:51 EDT someone who was confirmed or suspected [...] documented as of this encounter Progress Notes Reggie Baig MD - 10/02/2021 9640 EDT PROBLEM: Right knee arthroplasty follow-up SUBJECTIVE: Seng Muse is a 46 y.o. female who is here today for follow up. Seng presents today for a follow up of her right TKR, DOS 06/30/21. She had a washout of her knee on 07/14/21 due to drainage. LV was on 07/31 where she was able to increase activity level. She was provided a work note with some restrictions. She would like to build to return to work full duty. She still has a little bit of discomfort around the knee. No major concerns. The past medical, family and social history have been reviewed in the patient chart. ROS OBJECTIVE: There were no vitals taken for this visit. On physical exam, the patient is found to be a pleasant and cooperative female. In no acute distress. Psych: She is alert and oriented x 3 with normal affect. Constitutional: She is well-developed and in no significant distress. Eyes: Sclerae clear. Resp: Breathing is regular and nonlabored without audible wheezing. Skin: warm and dry Msk: Incision is well-healed. Slight valgus to the right knee. Mild flexion contracture, less than 5 degrees. Range of motion is pain-free. Some tenderness noted over the lateral knee. ASSESSMENT: 1. S/P total knee arthroplasty, right PLAN: Released to work full duty. No restrictions. Call if any questions or concerns. I advised her to defer any elective dental work until 6 months after joint replacement. I recommend use of antibiotics before any dental visits for the first two years after surgery. Follow up 3 months. If all symptoms resolved okay to reschedule for a 1 year follow-up Without xrays This note was prepared using voice recognition software and the EMR. There may be inadvertent errorsand omissions. Reggie Baig MD 10/04/2021 documented in this encounter Plan of Treatment Upcoming Encounters Date Type Specialty Care Team Description 01/08/2022 Office Visit Orthopedic Surgery Derrell Baig MD [address] [phone] (Wo rk) documented as of this encounter Visit Diagnoses Diagnosis S/P total knee arthroplasty, right - Priscila stephanie documented in this encounter Care Teams Admissions Supervisor Relationship Specialty Start Date End Date Toyin Frias NP PCP - General 05/07/[address] [place] [phone] documented as of this encounter
--- OUTSIDE RECORDS SUMMARY | 2021-10-09 00:06 | XMS_ITS | Encounter Summary ---
:1975 Author Organization [facility] Address [address] [place] [address] Care Team Providers Name Role Phone Toyin Frias NP Primary Care Provider Encounter Details Date Type Department Care Team Description 07/04/2021 Travel Social History Tobacco Use Types Packs/Day [...] do you have serious difficulty hearing? No 06/30/2021 Are you blind or do you have [...] Visit Orthopedic Surgery Derrell Baig MD [address] [phone] (Wo rk) documented as of this encounter Visit Diagnoses Not on filedocumented in this encounter Care Teams Hydraulic Press In Operator Relationship Specialty Start Date End Date Toyin Frias NP PCP - General 05/07/[address] [place] [phone] documented as of this encounter
--- OUTSIDE RECORDS SUMMARY | 2021-10-09 00:06 | XMS_ITS | Encounter Summary ---
:1975 Author Organization [facility] Address [address] [place] [address] Care Team Providers Name Role Phone Toyin Frias NP Primary Care Provider Reason for Visit Reason Comments Drainage from Incision Patient has had increased bl eeding form her right knee post surgery on 06/30. Was instruc katina by Dr. Michelle to changed the dressing but patient felt th e bleeding was worsening and came to be seen. Patient has not changed the dressing yet, Encounter Details Date Type Department Care Team Description 07/04/2021 Emergency [facility] - [place] Love MD Aftercare following [facility] Emergency [address] [facility] right knee joint Department [place], [place] replacement surgery [address] [place] [address] [address] (Primary Dx) [place], [place] [id number] Social History Tobacco Use Types Packs/Day Years [...] Sign Reading Time Taken Comments Blood Pressure 181/98 07/04/20212031 EDT Pulse 114 07/04/20212029 EDT Temperature 36.5 ??C (97.7 ??F) 07/04/20212029 EDT Respiratory Rate 18 07/04/20212029 EDT Oxygen Saturation 96% 07/04/20212029 EDT Inhaled Oxygen Concentration - - Weight - - Height - - Body Mass Index - - documented in this encounter Functional Status Functional [...] older) documented as of this encounter Discharge Instructions InstructionsMoDean gonzalez MD - 07/04/2021 You were seen in the emergency department for bleeding from the incision for your right knee replacement. This is most likely due to a draining hematoma. Keep your dressing in place with Charles bandages wrapped around her knee to provide compression. You may unwrap and rewrap them if they feel too tight or too loose. There may be some additional bleeding. Change the dressing tomorrow if it is saturated with blood. Follow-up with Dr. Baig as scheduled. Return to the ED for worsening symptoms, especially increasing brisk bleeding, severe pain or fever. documented in this encounter Medications at Time [...] omeprazole (PRILOSEC) 0 04/02/2019 20 mg capsule OZEMPIC 1 mg/dose (4 PATIENT TAKES ON 0 2 mg/3 mL) pen injector TUESDAY' OZEMPIC subcutaneous INJECT 0.25 MG 0 04/17/2021 pen SUBCUTANEOUSLY ONCE A WEEK FOR DIABETES acetaminophen (TYLENOL) Take 2 Tablets by 0 07/0107/08/2021 500 mg tablet mouth every 8 hours as needed for up to 7 days for Pain or Fever. aspirin 325 mg tablet Take 1 Tablet by mouth 56 Tablet 0 07/16/2021 2 times daily for 28 days. oxyCODONE (ROXICODONE) Take 1 Tablet by mouth 15 Tablet 0 0 07/01/2021 07/08/2021 5 mg immediate release every 6 hours as tablet needed for Pain (Severe Pain (7-10)). Daily Max: 20 mg documented as of this encounter Discharge Disposition Disposition Code Departure Means Destination Home or Self Intermediate documented in this encounter ED Notes Dean Love MD - 07/04/20212051 EDT Emergency Department Visit Assessment and ED Course 45-year-old female who was postop day 4 from a right total knee replacement presents to the ED with bleeding from her incision. On exam the dressing was saturated over the inferior portion and with removal there was mild oozing of blood with standing but no brisk bleeding. She has no symptoms to suggest significant blood loss. This was likely a draining hematoma. Discussed with Dr. Sutton of orthopedics who recommended redressing and providing compression with Charles bandages. Patient was given an additional dressing to use tomorrow in case the dressing becomes saturated again. She will follow-up withorthopedics. Final diagnoses: Aftercare following right knee joint replacement surgery Disposition: Discharged Chief complaint: Bleeding from knee incision HPI Seng Muse is a 45 y.o. female who presents to the ED for bleeding from her knee replacement incision. She underwent a right total knee replacement 4 days ago. Today at home she had significant bleeding from the incision under dressing that ran down her leg into her shoe. Every time she gets up to walk around she has additional bleeding. There is no increase in pain in the knee. She denies fever. No lightheadedness, shortness of breath or chest pain. Has been taking aspirin following surgery but no other blood thinners. History was provided by: Patient Patient's pertinent PMH, FH, SH were reviewed and edited as necessary. Review of Systems Constitutional: Negative for chills and fever. HENT: Negative for congestion. Eyes: Negative for redness. Respiratory: Negative for shortness of breath. Cardiovascular: Negative for chest pain. Gastrointestinal: Negative for abdominal pain, nausea and vomiting. Genitourinary: Negative for dysuria. Musculoskeletal: Negative for neck pain. Skin: Negative for rash. Neurological: Negative for speech change. Psychiatric/Behavioral: Negative for hallucinations. Physical Exam BP (!) 181/98 Pulse (!) 114 Temp 36.5 ??C (97.7 ??F) (Oral) Resp 18 LMP 06/29/2021 (Exact Date) SpO2 96% A medical screening exam was performed. Physical Exam Vitals and nursing note reviewed. Constitutional: General: She is not in acute distress. Appearance: She is well-developed and well-nourished. HENT: Nose: Nose normal. Mouth/Throat: Mouth: Mucous membranes are moist. Pharynx: Oropharynx is clear. Eyes: Extraocular Movements: EOM normal. Conjunctiva/sclera: Conjunctivae normal. Pupils: Pupils are equal, round, and reactive to light. Cardiovascular: Rate and Rhythm: Normal rate and regular rhythm. Heart sounds: Normal heart sounds. Pulmonary: Effort: Pulmonary effort is normal. Breath sounds: Normal breath sounds. Musculoskeletal: Cervical back: Normal range of motion and neck supple. Comments: Right knee with anterior incision. The dressing is saturated with blood over the inferiorportion. With removal of the dressing there is slight oozing from the wound when the patient stands but no brisk bleeding. No gaping of the wound. Skin: General: Skin is warm and dry. Neurological: Mental Status: She is alert and oriented to person, place, and time. Cranial Nerves: No cranial nerve deficit. Psychiatric: Mood and Affect: Mood and affect normal. Procedures Procedures documented in this encounter Plan of Treatment Upcoming Encounters Date Type Specialty Care Team Description 01/08/2022 Office Visit Orthopedic Surgery Derrell Baig MD [address] [place] [address] (Wo rk) documented as of this encounter Visit Diagnoses Diagnosis Aftercare following right knee joint rep lacement surgery - Primary documented in this encounter Administered Medications Inactive Administered Medications - up to 3 most recent administrations Medication Order MAR Action Action Date Dose Rate Site acetaminophen (TYLENOL) tablet 975 Given 07/04/2021 21:07 EDT 97 5 mg mg 975 mg (rounded from 1,000 mg), oral, NOW X1, 1 dose, On 07/04/21 at 2115, STAT oxyCODONE (ROXICODONE) immediate release tablet 5 Given 07/04/2021 21:08 EDT 5 mg mg 5 mg, oral, NOW X1, 1 dose, On 07/04/21 at 2115, STAT documented in this encounter Active and Recently Administered Medications Times are shown in EDT. Scheduled Medication Order 07/02/2021 07/03/2021 07/04/2021 acetaminophen (TYLENOL) tablet 975 mg (COMPLETED) 2106 (Given - Provider: Cristhian Rodriguez RN) 975 mg (rounded from 1,000 mg), oral, NO W X1, 1 dose, On 07/04/21 at 2115, STAT oxyCODONE (ROXICODONE) immediate release tablet 5 mg (COMPLETED) 2107 (Given - Provider: Cristhian Rodriguez RN) 5 mg, oral, NOW X1, 1 dose, On 07/04/21 at 2115, STAT documented in this encounter Care Teams Esl Instructional Assistant Relationship Specialty Start Date End Date Toyin Frias NP PCP - General 05/07/[address] [place] [phone] documented as of this encounter
--- OUTSIDE RECORDS SUMMARY | 2021-10-09 00:06 | XMS_ITS | Encounter Summary ---
:1975 Author Organization [facility] Address [address] [place] [address] Care Team Providers Name Role Phone Toyin Frias NP Primary Care Provider Encounter Details Date Type Department Care Team Description 10/02/2021 Travel Social History Tobacco Use Types Packs/Day [...] Visit Orthopedic Surgery Derrell Baig MD [address] [id number] (Wo rk) documented as of this encounter Visit Diagnoses Not on filedocumented in this encounter Care Teams Military Science Instructor Relationship Specialty Start Date End Date Toyin Frias NP PCP - General 05/07/[address] [place] [phone] documented as of this encounter
--- OUTSIDE RECORDS SUMMARY | 2021-10-09 00:06 | XMS_ITS | Encounter Summary ---
:[address] [facility] Address [address] [place] [address] Care Team Providers Name Role Phone Toyin Frias NP Primary Care Provider Reason for Visit Reason Onset Date Comments Follow-up 09/04/2021 Encounter Details Date Type Department Care Team Description 09/04/2021 Telephone [facility] Nancy Mclaughlin RN Follow-up Orthopedics & Sport [address] [facility] Medicine [address], [place] [address] [facility] [place], [place] [address] [phone] Social History Tobacco Use Types Packs/Day Years [...] Assigned at Date Recorded Not on file documented as of this encounter Functional Status [...] or older) documented as of this encounter Miscellaneous Notes Telephone Encounter - Germaine Catherine LPN - 09/07/2021 1201 EDT Seng called back and was scheduled for a nurse visit at 1500 today. elephone Encounter - Nancy Mclaughlin RN - 09/04/2021 1209 EDT Ms. Muse called and left a voice mail message indicating that she noted an area about an inch from the bottom of her incision that that suddenly became red and had an area of pus. Attempted to call her back today. No answer and voice mail message left indicating that we would like to see her to check the area. Awaiting call back. documented in this encounter Plan of Treatment Upcoming Encounters Date Type Specialty Care Team Description 01/08/2022 Office Visit Orthopedic Surgery Derrell Baig MD [address] [place] [phone] (Wo rk) documented as of this encounter Visit Diagnoses Not on filedocumented in this encounter Care Teams Ski Patroller Relationship Specialty Start Date End Date Toyin Frias NP PCP - General 05/07/[address] [place] [phone] documented as of this encounter
--- OUTSIDE RECORDS SUMMARY | 2021-10-09 00:06 | XMS_ITS | Encounter Summary ---
:1975 Author Organization [facility] Address [address] [place] [address] Care Team Providers Name Role Phone Toyin Frias NP Primary Care Provider Reason for Visit Reason Onset Date Comments Drainage from Incision 07/06/2021 Encounter Details Date Type Department Care Team Description 07/06/2021 Telephone [facility] - Reggie Baig Drainage from [facility] Orth[facility]ics & M, [facility] Sport Medicine [address] [facility] [address] [place] [address] [place] [address] [phone] (Wo rk) Social History Tobacco Use Types [...] Telephone Encounter - Germaine Catherine LPN - 07/06/2021 1005 EDT Seng called reporting she had a right total knee replacement with CM on 06/30 and was seen in the ED on 07/04/21 for continued bleeding from her incision. The removed the saturated dressing and applied New one. She is still bleeding. She was asked to come in today for a nurse visit. She was scheduled [id number] as that was the earliest she could come in. documented in this encounter Plan of Treatment Upcoming Encounters Date Type Specialty Care Team Description 01/08/2022 Office Visit Orthopedic Surgery Derrell Baig MD [address] [phone] (Wo rk) documented as of this encounter Visit Diagnoses Not on filedocumented in this encounter Care Teams Paper Bag Inspector Relationship Specialty Start Date End Date Toyin Frias NP PCP - General 05/07/[address] [place] [phone] documented as of this encounter
--- OUTSIDE RECORDS SUMMARY | 2021-10-09 00:06 | XMS_ITS | Encounter Summary ---
:1975 Author Organization [facility] Address [address] [place] [address] Care Team Providers Name Role Phone Toyin Frias NP Primary Care Provider Reason for Visit Reason Comments Wound Check Encounter Details Date Type Department Care Team Description 07/10/2021 Nurse Only [facility] - Reggie Baig Effusion of right knee (Primary Dx); [facility] [place]ics & MMD S/P total knee arthroplasty, right Sport Medicine [address] [facility] [address] [place] [address] [place], [place] [phone] (Wo rk) Social History Tobacco Use Types [...] in contact with No / Unsu re 07/08/2021 11:37 EDT someone who was confirmed or suspected [...] encounter Progress Notes Reggie Baig MD - 07/10/2021 1500 EDTAssociated Order(s): Large Joint Injection/ArthrocentesisPost-Procedure Diagnose(s): Effusion of right knee; S/P total [...] to verify the correct patient, procedure, equipment, clinical support tech and site/side marked as required. Patient was prepped anddraped in the usual sterile fashion. This note was prepared using voice recognition software and the EMR. There may be inadvertent errorsand omissions. Reggie Baig MD 07/10/2021 documented in this encounter Plan of Treatment Upcoming Encounters Date Type Specialty Care Team Description 01/08/2022 Office Visit Orthopedic Surgery Derrell Baig MD [address] [place] [address] (Wo rk) documented as of this encounter Procedures Procedure Name Priority Date/Time Associated Diagnosis Comme nts SYNOVIAL FLUID CELL Routine 07/10/2021 15:30 Effusion of right Results for this COUNT EDT knee procedure are in S/P total knee the results arthroplasty, right section. BACTERIAL Routine 07/10/2021 15:30 Effusion of right Result s for this CULTURE/SMEAR EDT knee procedure are in S/P total knee the results arthroplasty, right section. SYNOVIAL CELL COUNT Routine 07/10/2021 15:30 Effusion of right Results for this EDT knee procedure are in S/P total knee the results arthroplasty, right section. LARGE JOINT Routine 07/10/2021 15:00 Effusion of right Result s for this INJECTION/ARTHROCEN EDT knee procedure are in TESIS S/P total knee the results arthroplasty, right section. documented in this encounter Results (ABNORMAL) SYNOVIAL FLUID CELL COUNT (07/10/2021 15:30 EDT) RBC, Synovial Fluid 116,000 /cmm [facility] Nucleated Cells 354 (H) <=200 /cmm [facility] Comment, Synovial Markedly bloody [facility] Fluid [facility] Specimen Fluid - Fluid, Synovial Fluid Performing Organization Address City/[facility]/ZIP Code Phon e Number [facility] [address] [place] [address] BACTERIAL CULTURE/SMEAR (07/10/2021 15:30 EDT) Organism ID No Growth [facility] Smear No Neutrophils Seen [facility] Smear No bacteria seenComment: [facility] Fluid processed after [facility] centrifugation Specimen Fluid - Entire knee region (body structu re) Performing Organization Address City/[facility] Code Phon e Number [facility] [address] [place] [address] [place] ARTHROCENTESIS ASPIR&/INJ MAJOR JT/BURSA W/O US (07/10/2021 15:00 EDT) Narrative [facility] POINT OF CARE - 07/10/2021 15:00 E Reggie Randhawa MD ? 07/10/2021 17:24 Large Joint Injection/Arthrocentesis on 07/10/2021 15:00 Details: 22 G needle, lateral approach Aspirate: 60 mL serous and blood-tinged; sent for lab analysis Outcome: tolerated well, no immediate co mplications Procedure, treatment alternatives, risks and benefits explained, specific risks discussed. Consent was given by th e patient. Immediately prior to procedure a time out was called to verif y the correct patient, procedure, equipment, clinical support tech and site/side m arked as required. Patient was prepped and draped in the usual sterile fashion. Performing Organization Address City/State/ZIP Code Phon e Number [facility] POINT OF CARE documented in this encounter Visit Diagnoses Diagnosis Effusion of right knee - Primary Effusion of lower leg joint S/P total knee arthroplasty, right documented in this encounter Orders Case Request Count Last Ordered Date First Ordered Date CASE REQUEST OPERATING ROOM 1 07/10/2021 documented in this encounter Care Teams Cell Cleaner Relationship Specialty Start Date End Date Toyin Frias NP PCP - General 05/07/21 [address] [place] [phone] documented as of this encounter
--- OUTSIDE RECORDS SUMMARY | 2021-10-09 00:06 | XMS_ITS | Encounter Summary ---
:1975 Author Organization [facility] Address [address] [place] [address] Care Team Providers Name Role Phone Toyin Frias NP Primary Care Provider Reason for Visit Reason Comments Follow-up Encounter Details Date Type Department Care Team Description 07/08/2021 Office Visit [facility] - Reggie Baig Status post right knee replacement (Primary Dx); [facility] Orthopedics & MMD Pain and swelling of right knee Sport Medicine [address] [place] [address], [facility] [address] [place] [address] [place], [place] [address] (Wo rk) Social History Tobacco Use Types [...] Sign Reading Time Taken Comments Blood Pressure - - Pulse - - Temperature 36.7 ??C (98.1 ??F) 07/08/2021 1137 EDT Respiratory Rate - - Oxygen Saturation - - Inhaled Oxygen Concentration - - Weight - [...] or older) documented as of this encounter Ordered Prescriptions Prescription Sig Dispensed Refills Start Date End Date oxyCODONE (ROXICODONE) 5 Take 1 Tablet by 9 Tablet 0 07/0807/16/2021 mg immediate release mouth every 8 hours tablet as needed for Pain (Severe Pain (7-10)). Daily Max: 15 mg cephalexin (KEFLEX) 500 Take 1 capsule by 28 capsule 0 07/0807/16/2021 mg capsuleIndications: mouth 4 times daily Status post right knee for 7 days. replacement, Pain and swelling of right knee documented in this encounter Progress Notes Reggie Baig MD - 07/08/2021 1115 EDT PROBLEM: Seng is s/p right TKR 06/30/20; had bleeding 07/04 and went to ER SUBJECTIVE: Seng Muse is a 45 y.o. female who is here today for follow up. Seen for a nurse visit 07/06/21 and SR in to see pt. Small opening in incision with significant drainage. Here today for incision check. Patient had her knee replacement 1 week ago. She presented to the emergency room over the weekend with bleeding. She was seen in our office 2 days ago. The wound was probed and dark blood wasexpressed. She is here today for reevaluation. There has been some bleeding on the bandage although it has certainly slowed. She does feel like her knee is swollen again. The past medical, family and social history [...] Skin: warm and dry Msk: Right knee examined today. She has a 3+ effusion. The bandages do have some blood on them. There is a small area of opening at the distal incision. There is no active bleeding noted today. Neuro: Sensation grossly intact light touch right leg Vasc: Normal distal pulses, good capillary refill. ASSESSMENT: 1. Status post right knee replacement Postoperative hemarthrosis with slight wound dehiscence and drainage. PLAN: Recommend patient be on Keflex as long as there is drainage. We do need to keep a close eye on this.If the bleeding does stop, then I would like her to come in next week and we can consider aspirationof the hemarthrosis. If the bleeding continues, may need surgical exploration. Follow up 1 week Without xrays This note was prepared using voice recognition software and the EMR. There may be inadvertent errorsand omissions. Reggie Baig MD 07/07/2021 documented in this encounter Plan of Treatment Upcoming Encounters Date Type Specialty Care Team Description 01/08/2022 Office Visit Orthopedic Surgery Derrell Baig MD [address] [place] [address] [place] [address] (Wo rk) documented as of this encounter Results (ABNORMAL) HEMATOCRIT AND HEMOGLOBIN (07/08/2021 13:31 EDT) [facility] Sig nature HCT 27.8 (L) 34.9 - 44.4 % [facility] Hemoglobin 9.1 (L) 11.6 - 15.2 gm/dL [facility] Specimen Blood - Venous blood (substance) Performing Organization Address City/State/ZIP Code Phon e Number [facility] [address] [place] [address] documented in this encounter Visit Diagnoses Diagnosis Status post right knee replacement - Priscila brown Pain and swelling of right knee documented in this encounter Discontinued Medications Medication Sig Discontinue Reason Start Date End Date oxyCODONE (ROXICODONE) 5 Take 1 Tablet by Reorder 07/01/2021 07/08/2021 mg immediate release mouth every 6 hours tablet as needed for Pain (Severe Pain (7-10)). Daily Max: 20 mg documented as of this encounter Orders Equipment Count Last Ordered Date First Ordered Date COMPRESSION STOCKINGS THIGH HIGH 20-30 1 2 MMHG ([id number]) documented in this encounter Care Teams Instrumentation Supervisor Relationship Specialty Start Date End Date Toyin Frias NP PCP - General 05/07/21 [address] [place] [phone] documented as of this encounter
--- OUTSIDE RECORDS SUMMARY | 2021-10-09 00:06 | XMS_ITS | Clinical Summary ---
:1975 Author Organization [facility] Address [address] [place] [address] Care Team Providers Name Role Phone Toyin Frias NP Primary Care Provider Allergies No known active allergies Medications Medication Sig Dispensed Refills Start Date End Date Status loperamide (IMODIUM Take by mouth 4 0 Active A-D) 2 mg tablet times daily as needed. omeprazole (PRILOSEC) 0 04/02/2019 Active 20 mg capsule multivitamin capsule 1 cap(s) orally 0 Active twice a day ferrous sulfate 325 Take 325 mg by mouth 0 Active mg (65 mg iron) daily. tablet ergocalciferol 1 cap(s) orally once 0 06/23/2016 Active (DRISDOL; VITAMIN D2) a week 1,250 mcg (50,000 unit) capsule DULoxetine (CYMBALTA) 0 01/15/2019 Active 60 mg capsule diclofenac sodium 1 % Apply 2 g topically 0 Active gel if needed. cyclobenzaprine Take 10 mg by mouth 0 03/29/2019 Active (FLEXERIL) 10 mg at bedtime. tablet celecoxib (CELEBREX) Take 200 mg by mouth 0 02/12/20 19 Active 200 mg capsule 2 times daily. Calcium Carbonate 600 2 tab(s) orally 0 Active mg calcium (1,500 mg) twice a day tablet ascorbic acid, at bedtime. 0 Act lakes[place]ia vitamin C, (VITAMIN C) 500 mg tablet gabapentin TAKE 1 TO 3 CAPSULES 0 01/19/2020 Active (NEURONTIN) 300 mg ORALLY 3 TIMES A DAY capsule FOR CHRONIC PAIN acetaminophen/diphenh Take 2 Tablets by 0 Active ydramine (TYLENOL PM mouth at bedtime. ORAL) OZEMPIC subcutaneous INJECT 0.25 MG 0 04/17/2021 Active pen SUBCUTANEOUSLY ONCE A WEEK FOR DIABETES methocarbamoL Take 1 Tablet by 90 Tablet 0 05/07/2021 Active (ROBAXIN) 500 mg mouth 3 times daily tablet as needed for Muscle Spasms. Additional Information Patient not taking. Reported on 07/31/2021 amLODIPine (NORVASC) 5 mg Take 5 mg by mouth 0 06/12 Active tablet daily. OZEMPIC 1 mg/dose (4 mg/3 mL) PATIENT TAKES ON 0 03/2021 Active pen injector cyanocobalamin (VITAMIN B-12) Take by mouth four 0 Active 500 mcg tablet times a week. oxyCODONE (ROXICODONE) 5 mg Take 1 Tablet by mouth 9 Tablet 0 07/16/2021 Active immediate release tablet every 8 hours as needed for Pain (Severe Pain (7-10)). Daily Max: 15 mg Additional Information Patient not taking. Reported on 07/31/2021 cephalexin (KEFLEX) 500 Take 1 capsule by 28 capsule 0 022 09/14/2021 mg capsule mouth every 6 hours for 7 days. Active Problems Problem Noted Date Hemarthrosis following procedure 07/14/2021 Effusion of right knee 07/10/2021 Overview: Added automatically from request for thierry chalo [id number] S/P total knee arthroplasty, right 07/10/2021 Overview: Added automatically from request for thierry chalo [id number] Arthritis of right knee 06/30/2021 Enlarged uterus 04/15/2019 Morbid obesity ([facility]) 04/15/2019 Primary osteoarthritis of knees, bilateral 04/15/2019 S/P laparoscopic sleeve gastrectomy 07/14/2016 Right knee DJD 01/23/2016 History of DVT (deep vein thrombosis) 12/29/2015 Iron deficiency 12/23/2015 IBS (irritable bowel syndrome) 12/04/2015 Overview: - normal colonoscopy on 08/14/2007. Path: unremarkable OA (osteoarthritis) 12/04/2015 Internal nasal lesion 01/03/2014 Encounters Date Type Specialty Care Team Description 10/02/2021 Office Visit Orthopedic Safia, S/P total knee Surgery Reggie Goff MD arthroplas ty, right (Primary Dx) 10/02/2021 Travel 09/07/2021 Nurse Only Orthopedic Nurse, [facility] S/P total knee arthroplasty, right (Primary Dx); Surgery & Sport Postoperative s titch abscess 09/04/2021 Telephone Orthopedic Nancy Mclaughlin, Follow-up Surgery RN 07/31/2021 Hospital Encounter Pain Medicine Cyrus Bender Can celed (Patient: MD Feeling Better/ No Longer Needed) 07/31/2021 Post-op Visit Orthopedic Safia, S/P total knee Surgery Reggie Goff MD arthroplas ty, right (Primary Dx) 07/31/2021 Travel 07/21/2021 Telephone Pain Medicine Naz Norton Appointmen t Related RN (Patient cancel ling MBB and RFA katelynn ts) 07/21/2021 Telephone Orthopedic Safia, Other Surgery Reggie Goff MD 07/14/2021 Anesthesia Event Procedural Con Ferrell MD Taylor, [place]y, STIFF STRAW HAT WASHER 07/14/2021 Surgery Procedural Safia, ARTHROTOMY, Reggie KAUFMAN MD WITH EXPLO RATION, DRAINAGE, OR FO REIGN BODY REMOVAL- T otal Knee Revision, POLY EXCHANGE [26824 (CPT??)] 07/14/2021 Hospital Encounter General Internal Meriam, Hemar throsis following procedure, subsequent encounter (Primary Dx); - Medicine Reggie Goff MD S/P total knee arthroplasty, right 07/16/2021 07/13/2021 Telemedicine Orthopedic Safia, S/P total knee arthroplasty, right (Primary Dx); Surgery Reggie Goff MD Hemarthros is following procedure, subsequent encounter 07/13/2021 Travel 07/10/2021 Nurse Only Orthopedic Safia, Effusion of rig ht knee (Primary Dx); Surgery Reggie Goff MD S/P total knee arthroplasty, right from Last 3 Months Surgical History Surgery Date Site/Laterality Comments CARPAL TUNNEL RELEASE 03/14/2009 - Bilateral 03/13/2010 GASTRIC BYPASS SURGERY 03/14/2015 - [facility] 03/13/2016 RIB RESECTION 03/14/2005 - partial rib coby alex 03/13/2006 FOOT SURGERY 03/14/2010 - Left plantar fasciiti s 03/13/2011 KNEE SURGERY 04/09/2019 Right hardware removal KNEE SURGERY 03/14/2007 - Right knee tibial oste otomy/ 03/13/2008 microfracture KNEE SURGERY 03/14/2008 - Left arthroscopy/ maliha rofracture 03/13/2009 KNEE SURGERY 03/14/1990 - Bilateral arthroscopy-oste ochondritis 03/13/1991 dessicians Medical History Medical History Date Comments Bowel disease Hypertension GERD (gastroesophageal reflux disease) DVT (deep venous thrombosis) 2004 from thoracic outlet (HCC-CMS) (HCC) syndrome Thoracic outlet syndrome had rib resecti on and resolved this issue per patient Family History Medical History Relation Name Comments Heart Disease Father Thyroid Disease Father Diabetes Maternal Grandfather Cancer Mother Diabetes Paternal Grandfather Relation Name Status Comments Father Alive Maternal Grandfather Mother renal cell Paternal Grandfather Social History Tobacco Use Types Packs/Day Years [...] was confirmed or suspected to have Coronavirus/COVID-19? Last Filed Vital Signs Vital Sign Reading Time Taken Comments Blood Pressure 132/72 07/16/2021 1415 EDT Pulse 85 07/14/2021 1627 EDT Temperature 36.7 ??C (98 ??F) 07/31/2021 1637 EDT Respiratory Rate 14 07/16/2021 1415 EDT Oxygen Saturation 98% 07/16/2021 1415 EDT Inhaled Oxygen Concentration - - Weight 104.3 kg (230 lb) 07/14/2021 1627 EDT Height 170.2 cm (5' 7) 07/14/2021 1627 EDT Body Mass Index 36.02 07/14/2021 1627 EDT Plan of Treatment Upcoming Encounters Date Type Specialty Care Team Description 01/08/2022 Office Visit Orthopedic Surgery Derrell Baig MD [address] [place] [address] (Wo rk) Health Maintenance Due Date Last Done Comments Hepatitis C Screen 1975 COVID-19 Vaccine (#1) 03/30/1974 Implants Implanted Type Area Pitch Worker Device Shelf Model / Identifier Expiration Serial / Date Lot Cement Bone High Viscosity Tobramycin Ra diopaque Single Dose Swain 40gm Simplex [id number] - [id number] Ortho Right: [facility] 01/11/2022 [id number] / Implanted: Qty: 2 on 06/30/2021 by Reggie Baig MD at [facility] Implant Knee [facility] [id number] Cement Bone Simplex P Radiopaque Full Dose St - [id number] Ortho Right: Adam 01/11/2022 [id number] / Implanted: Qty: 1 on 06/30/2021 by Reggie Baig MD at [facility] Implant Knee Orthopaedics / Knee Patellar Component Asymmetric [id number] Triathlon [id number] - [id number] Patella Right: Crawley [id number] 02/17/2026 5551-L-350 / Implanted: Qty: 1 on 06/30/2021 by Reggie Baig MD at [facility] Patella Orthopaedics / [id number] Baseplate Size 6 Triathlon Ts Co - [id number] Right: Crawley [id number] 01/26/2026 5521-B-600 / Implanted: Qty: 1 on 06/30/2021 by Reggie Baig MD at [facility] Implant Knee Orthopaedics / [id number] Cement Restrictor - [id number] Total Right: Crawley [id number] 06/18/2024 [id number] / Implanted: Qty: 1 on 06/30/2021 by Reggie Baig MD at [facility] Joint Knee Orthopaedics / Implant [id number] Component Fem Right Size 6 Cemented Triathlon Ps Co - [id number] Total Right: Adam [id number] 05/04/2026 5515-F-602 / Implanted: Qty: 1 on 06/30/2021 by Reggie Baig MD at [facility] Joint Knee Orthopaedics / Implant [id number] Knee Stem Extension Cemented [id number] Triathlon [id number] - [id number] Total Right: Crawley [id number] 04/28/2024 5560-[id number] / Implanted: Qty: 1 on 06/30/2021 by Reggie Baig MD at [facility] Joint Knee Orthopaedics / Implant [id number] Knee Tibial Insert Fixed Size 6 Ts 13mm Triathlon [id number] - [id number] Total Right: Crawley [id number] 08/03/2025 5537-G-613 / Implanted: Qty: 1 on 06/30/2021 by Reggie Baig MD at [facility] Joint Knee Orthopaedics / Implant [id number] Knee Tibial Insert Fixed Size 6 Ts 13mm Triathlon [id number] - [id number] Total Right: Adam [id number] 12/28/2021 5537-G-613 / Implanted: Qty: 1 on 07/14/2021 by Reggie Baig MD at [facility] Joint Knee Orthopaedics / Implant [id number] Procedures Procedure Name Priority Date/Time Associated Comments Diagnosis BACTERIAL Routine 09/07/2021 15:31 S/P total knee Results f or this CULTURE/SMEAR EDT arthroplasty, ri ght procedure are in Postoperative the results stitch abscess section. XR KNEE RIGHT 3 VIEWS Routine 07/31/2021 16:50 S/P total knee Results for this EDT arthroplasty, right procedur e are in the results section. ECG REPORT - SCANNED 07/20/2021 7:51 EDT [...] are in AEROBES), OTHER the results section. ANESTHESIA SPINAL Routine 07/14/2021 11:27 Result s for this BLOCK EDT procedure are i n the results section. ARTHROTOMY, KNEE, 07/14/2021 10:55 Effusion of right WITH EXPLORATION, EDT knee DRAINAGE, OR FOREIGN S/P total knee BODY REMOVAL arthroplasty, right Special Needs AD Poly exchange for a 6 TS insert 13mm thick SYNOVIAL FLUID Routine 07/10/2021 15:30 Effusion of rig ht knee Results for this CELL COUNT EDT S/P total knee procedure are in arthroplasty, right the resu lts section. SYNOVIAL CELL Routine 07/10/2021 15:30 Effusion of rig ht knee Results for this COUNT EDT S/P total knee procedure are in arthroplasty, right the resu lts section. BACTERIAL Routine 07/10/2021 15:30 Effusion of rig ht knee Results for this CULTURE/SMEAR EDT S/P total knee procedure ar e in arthroplasty, right the resu lts section. LARGE JOINT Routine 07/10/2021 15:00 Effusion of rig ht knee Results for this INJECTION/ARTHROCE EDT S/P total knee procedu re are in NTESIS arthroplasty, right the resu lts section. from Last 3 Months Results BACTERIAL CULTURE/SMEAR (09/07/2021 15:31 EDT)Only the most recent of2 results within the time period is included. Pathologist Sig nature Organism ID Few Comment: Usual [facility] skin juvenal [facility] Smear No Neutrophils Seen [facility] Smear No bacteria [facility] seenComment: E-swab [facility] Submitted Specimen Swab - Entire knee region (body structur e) Performing Organization Address City/State/ZIP Code Phon e Number [facility] [address] [place] [address] XR KNEE RIGHT 3 VIEWS (07/31/2021 16:50 EDT) Anatomical Region Laterality Modality Lower Extremities Right Computed Radiography Specimen Impressions [facility] - 07/31/2021 17:43 EDT No acute bony abnormality. THIS DOCUMENT HAS BEEN ELECTRONICALLY SI GNED BY ASHWIN ZARATE MD FOR ANY QUESTIONS OR CONCERNS REGARDING THIS REPORT PLEASE CALL [facility] AT [phone] Narrative [facility] - 07/31/2021 17:43 EDT PROCEDURE INFORMATION: Exam: XR Right Knee Exam date and time: 07/31/2021 4:49 PM Age: 45 years old Clinical indication: Presence of right a rtificial knee joint; Other: S/P right tkr; Prior surgery TECHNIQUE: Imaging protocol: XR Right knee. Views: 3 views. COMPARISON: CR XR LEG LENGTH EVALUATION (PRE AND POS T OP) 07/01/2021 12:03 PM FINDINGS: Bones/joints: Previous knee replacement. Surgical instrumentation in appropriate position and shows no evidence of complications. No acute fracture. No acu te malalignment. Soft tissues: Normal. Procedure Note Ashwin Zarate MD - 07/31/2021 PROCEDURE INFORMATION: Exam: XR Right Knee Exam date and time: 07/31/2021 4:49 PM Age: 45 years old Clinical indication: Presence of right a rtificial knee joint; Other: S/P right tkr; Prior surgery TECHNIQUE: Imaging protocol: XR Right knee. Views: 3 views. COMPARISON: CR XR LEG LENGTH EVALUATION (PRE AND POS T OP) 07/01/2021 12:03 PM FINDINGS: Bones/joints: Previous knee replacement. Surgical instrumentation in appropriate position and shows no evidence of complications. No acute fracture. No acu te malalignment. Soft tissues: Normal. IMPRESSION No acute bony abnormality. THIS DOCUMENT HAS BEEN ELECTRONICALLY SI GNED BY ASHWIN ZARATE MD FOR ANY QUESTIONS OR CONCERNS REGARDING THIS REPORT PLEASE CALL [facility] AT [phone] Performing Organization Address City/[facility]/ZIP Code Phon e Number [facility] ECG REPORT - SCANNED (07/20/2021 7:51 EDT) Specimen Narrative This result has an attachment that is no t available. (ABNORMAL) COMPLETE BLOOD COUNT (07/16/2021 6:46 EDT)Only the most recent of2 resultswithin the time period is included. Pathologist Sig nature WBC 6.91 4.00 - 12.40 K/cmm [facility] RBC 2.84 (L) 3.86 - 5.04 M/cmm [facility] Hemoglobin 8.6 (L) 11.6 - 15.2 gm/dL [facility] HCT 27.1 (L) 34.9 - 44.4 % [facility] MCV 95 81 - 98 fl [facility] MCH 30.3 26.7 - 33.3 pg [facility] MCHC 31.7 (L) 32.1 - 35.9 gm/dL [facility] RDW-CV 15.3 (H) <14.7 % [facility] RDW-SD 50.8 (H) <50.4 fl [facility] PLT 316 141 - 377 K/cmm [facility] MPV 9.5 9.5 - 12.7 fl [facility] Specimen Blood - Venous blood (substance) Performing Organization Address City/[facility]/ZIP Code Phon e Number [facility] [address] [place] [address] BUN (07/15/2021 6:45 EDT) Pathologist Sig nature BUN 10 10 - 26 mg/dL [facility] Specimen Blood - Venous blood (substance) Performing Organization Address [facility] Phon e Number [facility] [address] [place] [address] GLUCOSE, SERUM (07/15/2021 6:45 EDT) Pathologist Sig nature Glucose 95 70 - 100 mg/dL [facility] Specimen Blood - Venous blood (substance) Performing Organization Address [facility] Phon e Number [facility] [address] [place] [address] CREATININE (07/15/2021 6:45 EDT) Pathologist Sig [facility] Creatinine 0.62 0.52 - 1.04 mg/dL [facility] eGFR 110 >60 mL/min/1.73m2 [facility] Specimen Blood - Venous blood (substance) Performing Organization Address [facility] Phon e Number [facility] [address] [place] [address] (ABNORMAL) ELECTROLYTES (07/15/2021 6:45 EDT) Pathologist Sig [facility] Sodium 135 (L) 136 - 145 mmol/L [facility] Potassium 4.0 3.5 - 5.0 mmol/L [facility] Chloride 103 96 - 110 mmol/L [facility] CO2 Total 24 22 - 32 mmol/L [facility] Anion Gap 8 5 - 14 [facility] Specimen Blood - Venous blood (substance) Performing Organization Address [facility] Phon e Number [facility] [address] [place] [address] PTT (07/14/2021 16:23 EDT) Pathologist Sig nature PTT 32 26 - 37 secs [facility] AB Specimen Blood - Venous blood (substance) Performing Organization Address [facility] Phon e Number [facility] [address] [place] [address] (ABNORMAL) PROTIME (07/14/2021 16:23 EDT) Pathologist Sig nature I.N.R. 1.1 0.9 - 1.1 Ratio [facility] Pro Time 12.7 (H) 10.4 - 12.6 secs [facility] Specimen Blood - Venous blood (substance) Narrative [facility] - 022 16:41 EDT Moderate Intensity Coumadin INR = 2.0-3.0 Adjustments in anticoagulant therapy dos e should be based on the INR and NOT on the Protime. Performing Organization Address [facility] Phon e Number [facility] [address] [place] [address] ANAEROBE CULTURE/SMEAR(INC. AEROBES), OTHER (07/14/2021 11:58 EDT)Only the most recent of5 resultswithin the time period is included. Pathologist Sig nature Organism ID No Growth [facility] Smear No Neutrophils Seen [facility] Smear No bacteria [facility] seenComment: Tissue [facility] submitted Specimen Tissue - Soft tissue (navigational marcelina pt) Performing Organization Address [facility] Phon e Number [facility] [address] [place] [address] SURGICAL PATHOLOGY (07/14/2021 11:51 EDT) Note to Patient The following [facility] pathology results [facility] have been interpreted by your pathologist and may be available to you before your health provider has had the opportunity to review them. Please allow time for your provider to receive these results and explore management options, if applicable. Final Diagnosis A. SOFT TISSUE, RIGHT KNEE FASCIA, BIOPSY: [facility] - No significant acute inflammation identified. [facility] B. SYNOVIUM, RIGHT KNEE, BIOPSY: - Predominantly fibrin with no significant acute infla mmation identified. C. SYNOVIUM, RIGHT KNEE, BIOPSY: - No significant acute inflammation identified. D. SYNOVIUM, RIGHT KNEE, BIOPSY: - No significant acute inflammation identified. E. SYNOVIUM, RIGHT KNEE, BIOPSY: - No significant acute inflammation identified. Attestation By the signature [facility] Electron ically below, the [facility] signed by Anay ferrari, attending physician Andres Urrutia MD on certifies that they 07/15/2021 at 1601 have 1) personally conducted a gross and/or microscopic examination of the described specimen(s), and/or personally interpreted the results of laboratory testing of the described specimen(s), and 2) personally rendered or confirmed the above diagnosis. Intraoperative A. [facility] Consultation FS DX: [facility] A) No significant acute inflammation identified [...] MD 07/14/21 1320 Clinical History Pre-op diagnosis: [facility] Effusion of right knee [M25.461] [facility] S/P total knee arthroplasty, right [Z96.651] Gross Description A. [facility] Received fresh and labeled ? Seng Dom. Almaz? and ? 1? is a 2.5 x 1.0 x 0.3 cm aggregate of almanza-pink tissue fragments. Entirely submitted for frozen sections. [facility] B. Received fresh and labeled ? [...] frozen section. Preliminary Diagnosis Frozen Section Diagnoses: [facility] AFS1: - No significant acute inflammation identi fied (1 block). [facility] BFS1: - Predominantly fibrin . No significant acute inflammation identified (1 block). CFS1: - No significant acute inflammation identified ( 1 block). DFS1-2: - No significant acute inflammation identified (2 blocks). EFS1: - No significant acute inflammation identified ( 1 block). The above frozen section tae gnoses were performed and evaluated by Chayo Guzmán MD on 07/14/21 at [facility]. The results were called to the operating room with Dr. Anderson on 022. The slides and staining quality of all slides were adequate for evaluation. Performing Lab [facility] Scanned Images [facility] Specimen Tissue - Entire synovial membrane [...] of joint (body structure) Performing Organization Address City/State/ZIP Code Phon e Number [facility] [address] [place] [address] Spinal Block (07/14/2021 11:27 EDT) Narrative Kathrin Mcneil CRNA - 07/14/2021 11:27 ED T Kathrin Mcneil CRNA ? 07/14/2021 11:29 Spinal Block Patient location during procedure: OR Start time: 07/14/2021 11:14 End time: 07/14/2021 11:18 Staffing Performed: resident/STIFF STRAW HAT WASHER/AA Preanesthetic Checklist Completed: patient identified, IV checke d, site marked, risks and benefits discussed, surgical consent, monitors an d equipment checked, pre-op evaluation and timeout performed Spinal Block Patient position: sitting Prep: ChloraPrep, site prepped and drape d, skin prep agent completely dried prior to procedure, sterile gloves , mask used and subcutaneous lidocaine Patient monitoring: BP cuff, heart rate, monitoring analyst and continuous pulse ox Approach: midline Location: L3-4 Injection technique: single-shot Needle Needle type: Quincke Needle gauge: 25 G Needle length: 3.5 in Assessment Events: no paresthesia Reason for block: surgical anesthesia (ABNORMAL) SYNOVIAL FLUID CELL COUNT (07/10/2021 15:30 EDT) RBC, Synovial Fluid 116,000 /cmm [facility] Nucleated Cells 354 (H) <=200 /cmm [facility] Comment, Synovial Markedly bloody [facility] Fluid [facility] Specimen Fluid - Fluid, Synovial Fluid Performing Organization Address City/[facility]/ZIP Code Phon e Number [facility] [address] [place] [address] [place] ARTHROCENTESIS ASPIR&/INJ MAJOR JT/BURSA W/O US (07/10/2021 15:00 EDT) [facility]ative [facility] - 07/10/2021 15:00 E [...] verif y the correct patient, procedure, equipment, decision support analyst and site/side m arked as required. Patient was prepped and draped in the usual sterile fashion. Performing Organization Address City/State/ZIP Code Phon e Number [facility] POINT OF CARE from Last 3 Months Insurance Payer Benefit Plan / Subscriber ID Effective Dates Phone Addre ss Type Group BCBS [place] BCBS [facility] [id number] 2021-Present [address] [employer] [place] [address] [address] (Home) [place] [phone] [place] [address] (Work) Seng Muse Personal/Family Self 1975 [address] (Home) [facility] [place] [phone] [place] [address] (Work) Seng Muse Personal/Family Self 1975 [address] (Home) [facility] [address] (Work) Sneg Muse Personal/Family Self 1975 [address] (Home) [place] [address] (Work) Seng Muse Personal/Family Self 1975 [address] (Home) [place] [address] (Work) Seng Muse Personal/Family Self 1975 [address] (Home) [place] [address] (Work) Seng Muse Personal/Family Self 1975 [address] (Home) [place] [address] (Work) Seng Muse Personal/Family Self 1975 [address] (Home) [place] [address] (Work) Advance Directives For more information, please contact: [phone] Latest Code Status on File Code Status Date Activated Date Inactivated Comments Full Code 07/14/2021 8:45 07/16/2021 18:19 When the patient has NO PULSE: Full Code / CPR Who Made the Decision? Patient Full Code 06/30/2021 13:22 07/02/2021 16:41 When the patient has NO PULSE: Full Code / CPR Who Made the Decision? Patient Care Teams Annealing Furnace Operator Relationship Specialty Start Date End Date Toyin Frias NP PCP - General 05/07/[address] [place] [phone]
--- OUTSIDE RECORDS SUMMARY | 2021-10-09 00:06 | XMS_ITS | Encounter Summary ---
:1975 Author Organization [facility] Address [address] [place] [address] Care Team Providers Name Role Phone Toyin Frias NP Primary Care Provider Reason for Visit Reason Comments Post-OP Follow Up Encounter Details Date Type Department Care Team Description 07/31/2021 Post-op Visit [facility] - Reggie Baig S/P total knee [facility], arthroplasty, right Sport Medicine [address] (Primary Dx) [address], [place] [address] [place] [address] [place], [place] [id number] (Wo rk) Social History Tobacco Use Types [...] - Pulse - - Temperature 36.7 ??C (98 ??F) 07/31/2021 1637 EDT Respiratory Rate - - Oxygen Saturation [...] encounter Progress Notes Reggie Baig MD - 07/31/2021 1630 EDT PROBLEM: Seng presents today S/p 06/30/21 right TKR. SUBJECTIVE: Seng Muse is a 45 y.o. female who is here today for follow up. Her postoperative coursewas complicated by hemorrhage. She continues to have significant drainage from the incision. We did aspirate the knee and removed a significant amount of serosanguineous fluid. Cultures of this were negative. However, she continued to have some drainage. Because of this she went back to surgery on 2021. She had a washout of the knee, repeat cultures and tissue specimens were sent, and a polyethylene exchange was performed. There is been no evidence of infection. She says that the drainage didstop. We did keep the drain in place for 3 days which was taken out by home health. She has had no further problems. The past medical, family and social history have been reviewed in the patient chart. ROS OBJECTIVE: Temp 36.7 ??C (98 ??F) On physical exam, the patient is found to be a pleasant and cooperative female. In no acute distress. Psych: She is alert and oriented x 3 with normal affect. Constitutional: She is well-developed and in no significant distress. Eyes: Sclerae clear. Resp: Breathing is regular and nonlabored without audible wheezing. Skin: warm and dry Msk: Right knee examined today. Her incision appears to be well-healed. There is no erythema or ecchymosis. No appreciable drainage is seen. She has a mild joint effusion. She continues to have a mild valgus deformity. This is, however, significantly improved from preoperatively. She lacks a few degrees offull extension. She can flex to about 110 degrees without difficulty. She has no pain with motion. She has no gross instability. DIAGNOSTICS: Radiographs of right knee were ordered and taken in the office today. These were independently reviewed by me. AP, lateral, and sunrise view. Right total knee arthroplasty. No evidence of any acute complications. ASSESSMENT: 1. S/P total knee arthroplasty, right XR KNEE RIGHT 3 VIEWS PLAN: May gradually increase her activity level. She should continue to monitor for any problems. Call if any questions. She would like to return to work. I have given her a release to work with some mild restrictions, specifically on how much she lifts and carries as well as how long she stands on her feet. She should also avoid repetitive deep squatting and climbing. Follow up 2 months Without xrays This note was prepared using voice recognition software and the EMR. There may be inadvertent errorsand omissions. Reggie Baig MD 08/02/2021 documented in this encounter Plan of Treatment Upcoming Encounters Date Type Specialty Care Team Description 01/08/2022 Office Visit Orthopedic Surgery Derrell Baig MD [facility] [address] [id number] (Wo rk) documented as of this encounter Procedures Procedure Name Priority Date/Time Associated Diagnosis Comme nts XR KNEE RIGHT 3 Routine 07/31/2021 16:50 S/P total knee Result s for this VIEWS EDT arthroplasty, right procedur e are in the results section. documented in this encounter Results XR KNEE RIGHT 3 VIEWS (07/31/2021 16:50 EDT) Anatomical Region Laterality Modality Lower Extremities Right Computed Radiography Specimen Impressions [facility] - 07/31/2021 17:43 EDT No acute bony abnormality. THIS DOCUMENT HAS BEEN ELECTRONICALLY SI GNED BY ASHWIN ZARATE MD FOR ANY QUESTIONS OR CONCERNS REGARDING THIS REPORT PLEASE CALL [facility] AT [phone] Narrative [facility] [place] - 07/31/2021 17:43 EDT PROCEDURE INFORMATION: Exam: [...] REGARDING THIS REPORT PLEASE CALL [facility] AT [phone] Performing Organization Address City/State/ZIP Code Phon e Number [facility] documented in this encounter Visit Diagnoses Diagnosis S/P total knee arthroplasty, right - Priscila stephanie documented in this encounter Care Teams Landfill Gas Collection System Operator Relationship Specialty Start Date End Date Toyin Frias NP PCP - General 05/07/[address] [place] [phone] documented as of this encounter
--- OUTSIDE RECORDS SUMMARY | 2021-10-09 00:06 | XMS_ITS | Encounter Summary ---
:1975 Author Organization [facility] Address [address] [place] [address] Care Team Providers Name Role Phone Toyin Frias NP Primary Care Provider Encounter Details Date Type Department Care Team Description 07/08/2021 Phlebotomy Only [facility], [facility] Op Status post right - [place] Phlebotomy knee repla [facility] - Outpatient Phlebotomy Drawing [address] [place], [place] [id number] Social History Tobacco Use Types Packs/Day Years [...] Visit Orthopedic Surgery Derrell Baig MD [address] [id number] (Wo rk) documented as of this encounter Procedures Procedure Name Priority Date/Time Associated Diagnosis Comme nts HEMATOCRIT AND Routine 07/08/2021 13:31 Status post right Resu lts for this HEMOGLOBIN EDT knee replacement procedure a re in the results section. documented in this encounter Results (ABNORMAL) HEMATOCRIT AND HEMOGLOBIN (07/08/2021 13:31 EDT) Pathologist Sig nature HCT 27.8 (L) 34.9 - 44.4 % [facility] Hemoglobin 9.1 (L) 11.6 - 15.2 gm/dL [facility] Specimen Blood - Venous blood (substance) Performing Organization Address City/State/ZIP Code Phon e Number [facility] [address] [place] [address] documented in this encounter Visit Diagnoses Diagnosis Status post right knee replacement documented in this encounter Care Teams Mandrel Puller Relationship Specialty Start Date End Date Toyin Frias NP PCP - General 05/07/21 [address] [place] [phone] documented as of this encounter
--- OUTSIDE RECORDS SUMMARY | 2021-10-09 00:06 | XMS_ITS | Encounter Summary ---
:1975 Author Organization [facility] Address [address] [place] [address] Care Team Providers Name Role Phone Toyin Frias NP Primary Care Provider Reason for Visit Reason Onset Date Comments Appointment Related 07/08/2021 Encounter Details Date Type Department Care Team Description 07/08/2021 Telephone [facility] - Cyrus Bender Ap pointment Related [facility] [address] [facility], [place], [place] [address] [place] [phone] Social History Tobacco Use Types Packs/Day [...] this encounter Miscellaneous Notes Telephone Encounter - Yuliet Rossi - 07/08/2021 1317 EDT LVMOM to get scheduled for 2 genicular MBBS and a Left Knee RFA with Dr. Bender in September documented in this encounter Plan of Treatment Upcoming Encounters Date Type Specialty Care Team Description 01/08/2022 Office Visit Orthopedic Surgery Derrell Baig MD [address] [id number] (Wo rk) documented as of this encounter Visit Diagnoses Not on filedocumented in this encounter Care Teams Ic Engineer Relationship Specialty Start Date End Date Toyin Frias NP PCP - General 05/07/[address] [place] [phone] documented as of this encounter
--- OUTSIDE RECORDS SUMMARY | 2021-10-09 00:06 | XMS_ITS | Encounter Summary ---
:1975 Author Organization [facility] Address [address] [place] [address] Care Team Providers Name Role Phone Toyin Frias NP Primary Care Provider Encounter Details Date Type Department Care Team Description 07/31/2021 Travel Social History Tobacco Use Types Packs/Day [...] Visit Orthopedic Surgery Derrell Baig MD [address] [phone] (Wo rk) documented as of this encounter Visit Diagnoses Not on filedocumented in this encounter Care Teams Manufacturing Director Relationship Specialty Start Date End Date Toyin Frias NP PCP - General 05/07/[address] [place] [phone] documented as of this encounter
--- OUTSIDE RECORDS SUMMARY | 2021-10-09 00:06 | XMS_ITS | Encounter Summary ---
:1975 Author Organization [facility] Address [address] [place] [address] Care Team Providers Name Role Phone Toyin Frias NP Primary Care Provider Reason for Visit Reason Onset Date Comments Labs Only 07/09/2021 Encounter Details Date Type Department Care Team Description 07/09/2021 Telephone [facility] Reggie Baig MD Labs Only Orthopedics & Sport [address] [place] [address] [address], [place] [address] [address] [place] [address] [phone] Social History Tobacco Use Types Packs/Day Years [...] this encounter Miscellaneous Notes Telephone Encounter - Nancy Mclaughlin RN - 07/09/[address] Baig reviewed the H & H which is improved. He would like her to follow up next week unlessshe bleeds through the bandages again or has concerns. Called Ms. Muse and relayed that the blood work is reassuring for no active bleeding into her knee.She understands to call if she bleeds through again or has concerns. Otherwise, will follow up as scheduled elephone Encounter - Germaine Catherine LPN - 07/09/2021 0906 EDT Seng called asking about the results to her H&H. I did tell her what the results were and that they are still low but have improved from 7 days ago. Informed her I wasn't sure if CM review the results yet but would let him know and see if he wanted to make any changes to the plan. Message sent to CM, awaiting answer. documented in this encounter Plan of Treatment Upcoming Encounters Date Type Specialty Care Team Description 01/08/2022 Office Visit Orthopedic Surgery Derrell Baig MD [address] [place] [address] (Wo rk) documented as of this encounter Visit Diagnoses Not on filedocumented in this encounter Care Teams Souvenir And Novelty Maker Relationship Specialty Start Date End Date Toyin Frias, MARIUSZ PCP - General 05/07/[address] [place] [phone] documented as of this encounter
--- OUTSIDE RECORDS SUMMARY | 2021-10-09 00:06 | XMS_ITS | Encounter Summary ---
:1975 Author Organization [facility] Address [address] [place] [address] Care Team Providers Name Role Phone Toyin Frias NP Primary Care Provider Reason for Visit Reason Onset Date Comments Other 07/21/2021 Encounter Details Date Type Department Care Team Description 07/21/2021 Telephone [facility] Reggie Baig MD Other Orthopedics & Sport [address] [place] [address] [address], [place] [address] [facility] [place] [address] [phone] Social History Tobacco Use Types Packs/Day Years [...] Telephone Encounter - Germaine Catherine LPN - 07/21/2021 5007 EDT Call placed to Seng to check in and see how she is doing after her surgery. She reports she had her drain pulled Tuesday which did hurt a bit but she has scant drainage if any now. Her pain is improvingand she is taking minimal pain medications. She has no concerns at this time. She will call with anyconcerns. Post-op follow up on 07/31/21 documented in this encounter Plan of Treatment Upcoming Encounters Date Type Specialty Care Team Description 01/08/2022 Office Visit Orthopedic Surgery Derrell Baig MD [address] [facility] [address] [place] [phone] (Wo rk) documented as of this encounter Visit Diagnoses Not on filedocumented in this encounter Care Teams Milling Machine Operator Gear Relationship Specialty Start Date End Date Toyin Frias NP PCP - General 05/07/[address] [place] [phone] documented as of this encounter
--- OUTSIDE RECORDS SUMMARY | 2021-10-09 00:06 | XMS_ITS | Encounter Summary ---
:1975 Author Organization [facility] Address [address] [place] [address] Care Team Providers Name Role Phone Toyin Frias NP Primary Care Provider Reason for Visit Reason Onset Date Comments Physical Therapy 07/03/2021 Encounter Details Date Type Department Care Team Description 07/03/2021 Telephone [facility] [place] Lilly Chaney RN Physical Therapy Orthopedics & Sport Medicine [address], [address] [place] [address] Social History Tobacco Use Types Packs/Day Years [...] in contact with No / Unsu re 06/30/2021 6:44 EDT someone who was confirmed or suspected [...] this encounter Miscellaneous Notes Telephone Encounter - Lilly Chaney, RN - 07/03/2021 0830 EDT T/C received from [facility] notifying us patient requesting to start PT on Tuesday07/06/21. documented in this encounter Plan of Treatment Upcoming Encounters Date Type Specialty Care Team Description 01/08/2022 Office Visit Orthopedic Surgery Derrell Baig MD [address] [phone] (Wo rk) documented as of this encounter Visit Diagnoses Not on filedocumented in this encounter Care Teams Cellar Packer Relationship Specialty Start Date End Date Toyin Frias NP PCP - General 05/07/[address] [place] [phone] documented as of this encounter
--- OUTSIDE RECORDS SUMMARY | 2021-10-09 00:06 | XMS_ITS | Encounter Summary ---
:1975 Author Organization [facility] Address [address] [place] [address] Care Team Providers Name Role Phone Toyin Frias NP Primary Care Provider Reason for Referral Referral (Routine/Next Available) - Authorization Not Required Specialty Diagnoses / Procedures Referred By Contact Refer red To Contact Diagnoses Hemarthrosis following procedure, subsequent encounter S/P total knee arthroplasty, right Donnie Baig MD - [address] [place], [place] [id number] [place] [address] Fax: Referral ID Status Reason Start Expiration Visits Visits Date Date Requested Authorized [id number] Authorization Specialty 07/16/2021 1 1 Not Required Services Required Question Answer I certify that this patient is under my care 07/16/2021 and that I, or another Medicare allowed practitioner (DO BASIA, SHAUNA) working with me, had a [id number] encounter with this patient on this date: The discharge summary or progress note will Yes provide further details that support the need for the home health services and the plan of care. Enter the allowed practitioner (DO BASIA, SHAUNA) Safia who will provide oversight of this patient's home heatlh care needs and plan of care The patient? Right knee arthroplasty with post op s homebound status is related to the hemarthrosis following diagnoses, illness or condition (describe): Patient needs one or more of the following Assistive d evice to leave home: Assistive device Crutches Leaving the home is medically Post surgical restrictio ns or conditions contraindicated due to: The following conditions illustrate the Post surgical or post procedure patient? restrictions limit ambulation and s normal inability to leave home AND that activity leaving home requires a considerable and taxing effort: Skilled Care Requested Nursing asessment, Physical Therapy MCC assessment needed related to Post Surg ical, Other this encounter: Please specify: Wound check for three days. Remove drains on 07/17/21 Physical therapy is needed for: Evaluation, Safety, Ga it/Mobility Assessment and Training, Equ ipment Recommendations, Post Surgic al, Strength Training/Exercise Program Specialty Diagnoses / Procedures Referred By Contact [place] [address] [place] [id number] Referral ID Status Reason Start Date Expiration Date Visits Requ ested Visits Authorized Comments - Odor from incision - Redness, swelling or drainage from the wound - Temperature greater than 101 degrees F ahrenheit - Numbness in your extremity - Poor circulation (skin is cool to the touch or blue) - Shortness of breath - Pain unrelieved by medication - No bowel movement within 3 days of dis charge - A skin rash Reason for Visit Auth/Cert Specialty Diagnoses / Procedures Referred By Contact Refer red To Contact Diagnoses Effusion of right knee S/P total knee arthroplasty, right Effusion of right knee [M25.461] S/P total knee arthroplasty, right [Z96.651] Procedures IL EXPLOR/DRAIN KNEE,INFECTN ARTHROTOMY, KNEE, WITH EXPLORATION, DRAINAGE, OR FOREIGN BODY REMOVAL Referral ID Status Reason Start Date Expiration Date Visits Requ ested Visits Authorized [id number] 07/14/2021 07/16/2021 1 1 Encounter Details Date Type Department Care Team Description 07/14/2021 - [facility] Donnie Baig following procedure, subsequent encounter (Primary Dx); 07/16/2021 Encounter - [facility] Kaia / MD Shell S/P total knee arthroplasty, right Surgical [address] [place] [address] [place] [address] [phone] (Wo rk) Social History Tobacco Use Types [...] EDT Pulse 85 07/14/2021 1627 EDT Temperature 36.9 ??C (98.4 ??F) 07/16/2021 0943 EDT Respiratory Rate 14 07/16/2021 1415 EDT [...] arthroplasty, right ??? Hemarthrosis following procedure CC: Toyin Frias NP Home Health HPI: Patient is [...] CREATININE 0.62 -- Condition: Stable Follow up: [facility] Orthopedics [facility] Sports Medicine in 2 week(s) [...] ON 0 2 mg/3 mL) pen injector [facility] subcutaneous INJECT 0.25 MG 0 04/17/2021 [...] Take 1 Tablet by 28 Tablet 0 07/16/2 022 07/30/2021 tablet mouth 2 times daily for 14 days. documented in this encounter Discharge Disposition Disposition Code Departure Means Destination Home-Health Care Svc Home documented in this encounter Progress Notes Sarina Sahu, PT - 07/16/2021 1519 EDT [facility] Discontinue/Discharge Note Date of Service: [...] EDT Patient is discharged with services through [facility]. CM will fax discharge paper work. Patient has a friend that will drive her home. She has no concerns regarding this discharge plan. John PaulEssie, PT - 07/15/2021 1179 EDT [facility] Physical Therapy Initial Evaluation Note Date of [...] Hemarthrosis following procedure The patient lives at [place] [address] General Information Hand Dominance: Right Support Support Person: Significant other Support Comment: as needed Prior Level of Function: Was advancing to no device gait before knee troubles arose. Medical/Surgical History: Current: The patient has Internal nasal lesion; Enlarged uterus; History of DVT (deep vein thrombosis); IBS (irritable bowel syndrome); Iron deficiency; Morbid obesity (HCC-CMS) ([facility]); OA (osteoarthritis); Primary osteoarthritis of knees, bilateral; Right knee DJD; S/P laparoscopic sleeve gastrectomy; Arthritis of right knee; Effusion of right knee; S/P total knee arthroplasty, right; and Hemarthrosis following procedure on their problem list. Past: The patient has a past medical history of Bowel disease, DVT (deep venous thrombosis) (HCC-CMS) ([facility]), GERD (gastroesophageal reflux disease), Hypertension, and Thoracic [...] 07/15/2021 16:12 Basilia Gillis, OT - 07/15/2021 9807 EDT [facility] Single Visit Evaluation Note Date of Service: 07/15/2021 Precautions: Wound vac in place, per TKR SUBJECTIVE: Patient is currently having difficulty with: no problems reported Patient/caregiver states: I was doing pretty well at home Patient and Caregiver Goals: Return to my normal life Pain Comments: 05/21 right knee @FLOWPT([id number]:LAST:1:2) Medical/Surgical History: Current: has Internal nasal lesion; Enlarged uterus; History of DVT (deep vein thrombosis); IBS (irritable bowel syndrome); Iron deficiency; Morbid obesity (HCC-CMS) (HCC); OA (osteoarthritis); Primary osteoarthritis of knees, bilateral; Right knee DJD; S/P laparoscopic sleeve gastrectomy; Arthritis of right knee; Effusion of right knee; S/P total knee arthroplasty, right; and Hemarthrosis followingprocedure on their problem list. Past: has a past medical history of Bowel disease, DVT (deep venous thrombosis) ([facility]) ([facility]) (2005 from thoracic outlet syndrome), GERD (gastroesophageal reflux [...] Hemarthrosis following procedure. The patient lives at [place] [address] Body Functions and Performance Skills Cardiovascular/Respiratory Systems [...] plan and goals. Interventions Completed Today: Time: 6463-9547 Total Treatment Time (minutes): 15 Procedures: Self-care/home management Self-Care/Home Management 1: Review of self manual lymph drainage technique to mobilize post surgical edema, edema in lower leg and foot. Applied tubi aviation safety technician stockinette to foot and lower leg, size [...] Type of housing (single family, condo, apartment, alf, single room occupancy, [facility] funded hotel room, group retirement) - Single Family, One Level Home Who does the patient live with? SO Does the patient have access to their own bedroom/bathroom/kitchen - or is it shared with others? Shared Name of housing complex (ex [facility] [facility], [facility], [place] [facility], etc)- n/a Housing Authority/Managing Organization - n/a Community Care Providers (immigration case worker, [facility] nurse, etc) name and contact information- n/a LIVING ARRANGEMENTS AND ACCESSIBILITY ISSUES: Living Arrangements: Private residence, Spouse / significant other Levels: 1 Stairs to enter: 4 or more Handicap access: Railings into home Bathroom located on bedroom level?: Yes What in home social supports are available to the patient? Spouse / significant other Is 04/10 care available? NA ADVANCED DIRECTIVES, POA &/or COLST IN PLACE: Healthcare Directive: No, patient does not have advance directive for healthcare treatment Information Provided on Healthcare Directives: Yes Information on Healthcare Directives Requested: Yes Patient Requests Assistance: Yes, will do independently DIRECTIVES FOR FINANCES: Directive For Finances: No TRANSPORTATION: Transportation: Family Patient expects to be discharged to: Home CULTURAL, LUTHERAN and/or LANGUAGE factors affecting health care/discharge planning: [...] Health Services: Home PT/OT DME Provider: Pharmacy: [id number] - [address] [address] Home Health: [facility] Other: POST HOSPITAL TRANSITION PLAN: Home Seng [...] as needed. She has been active with [facility] but on dc, she feels she may not need them since they have advanced her to outpt PT for Tuesday. If HH is ordered, she would stay with [facility] and CM will need to fax clinical [...] weeks, right knee X-ray Donnie Baig MD [facility] Orthopedics [facility] Medicine 7:41 07/15/2021 Pager: [...] to verify the correct patient, procedure, equipment, customer support technician and site/side marked as required. Patient was prepped anddraped in the usual sterile fashion. This note was prepared using voice recognition software and the EMR. There may be inadvertent errorsand omissions. Donnie Baig MD 07/10/2021 documented in this encounter OR Notes OR Surgeon - Donnie Baig MD - 07/14/2021 1541 EDT Date: 07/14/21 Location: [facility] OR Name: Seng Muse, : 1975, Diagnosis [...] Forearm (Active) Closed/Suction Drain Right;Ventral Knee 10 Kinyarwanda (Active) Wound 07/14/21 Anterior;Right Knee (Active) Staff: Leather Production Artisan: Ainsley Olivarez RN; Jaylyn Barklye RN Scrub Person: Hermelinda Rosenberg LPN; Donnie Gee, SUSI Envelope Maker: Laina Brumfield Indications: Seng Muse is an [...] INSERT FIXED SIZE 6 TS 13MM TRIATHLON [id number] - [id number] Implanted Findings: 1. Patient received Ancef 2 [...] encounter Miscellaneous Notes Plan of Care - Christy Hopper RN - 07/16/2021 1308 EDT Problem: [...] at home pain management. Makes needs known. Chritsy Hopper RN 07/16/2021 16:25 Nursing Discharge Note D: Patient noted with discharge orders to: roller picker prescriptions, attend follow up appointments, wait [...] Slept most of night, VSS lan of Ashok - Christy Mccord RN - 07/15/2021 1636 EDT Seng Muse [...] Visit Orthopedic Surgery Derrell Baig MD [address] [address] (Wo rk) Scheduled Referrals Name Type Priority [...] nature WBC 6.91 4.00 - 12.40 K/cmm [facility] RBC 2.84 (L) 3.86 - 5.04 M/cmm [facility] Hemoglobin 8.6 (L) 11.6 - 15.2 gm/dL [facility] HCT 27.1 (L) 34.9 - 44.4 % [facility] MCV 95 81 - 98 fl [facility] MCH 30.3 26.7 - 33.3 pg [facility] MCHC 31.7 (L) 32.1 - 35.9 gm/dL [facility] RDW-CV 15.3 (H) <14.7 % [facility] RDW-SD 50.8 (H) <50.4 fl [facility] PLT 316 141 - 377 K/cmm [facility] MPV 9.5 9.5 - 12.7 fl [facility] Specimen Blood - Venous blood (substance) Performing Organization Address [facility] Phon e Number [facility] [address] [place] [address] (ABNORMAL) COMPLETE BLOOD COUNT (07/15/2021 6:45 EDT) Pathologist Sig nature WBC 6.01 4.00 - 12.40 K/cmm [facility] RBC 2.67 (L) 3.86 - 5.04 M/cmm [facility] Hemoglobin 7.9 (L) 11.6 - 15.2 gm/dL [facility] HCT 24.6 (L) 34.9 - 44.4 % [facility] MCV 92 81 - 98 fl [facility] MCH 29.6 26.7 - 33.3 pg [facility] MCHC 32.1 32.1 - 35.9 gm/dL [facility] RDW-CV 14.7 (H) <14.7 % [facility] RDW-SD 47.2 <50.4 fl [facility] PLT 287 141 - 377 K/cmm [facility] MPV 9.2 (L) 9.5 - 12.7 fl [facility] Specimen Blood - Venous blood (substance) Performing Organization Address City/[facility] Code Phon e Number [facility] [address] [place] [address] GLUCOSE, SERUM (07/15/2021 6:45 EDT) Pathologist Sig [facility] Glucose 95 70 - 100 mg/dL [facility] Specimen Blood - Venous blood (substance) Performing Organization Address [facility] Phon e Number [facility] [address] [place] [address] (ABNORMAL) ELECTROLYTES (07/15/2021 6:45 EDT) Pathologist Sig nature Sodium 135 (L) 136 - 145 mmol/L [facility] Potassium 4.0 3.5 - 5.0 mmol/L [facility] Chloride 103 96 - 110 mmol/L [facility] CO2 Total 24 22 - 32 mmol/L [facility] Anion Gap 8 5 - 14 [facility] Specimen Blood - Venous blood (substance) Performing Organization Address [facility] Phon e Number [facility] [address] [place] [address] CREATININE (07/15/2021 6:45 EDT) Pathologist Sig [facility] Creatinine 0.62 0.52 - 1.04 mg/dL [facility] eGFR 110 >60 mL/min/1.73m2 [facility] Specimen Blood - Venous blood (substance) Performing Organization Address [facility] Phon e Number [facility] [address] [place] [address] BUN (07/15/2021 6:45 EDT) Pathologist Sig [facility] BUN 10 10 - 26 mg/dL [facility] Specimen Blood - Venous blood (substance) Performing Organization Address City/[facility]/ZIP [facility] Phon e Number [facility] [address] [place] [address] PTT (07/14/2021 16:23 EDT) Pathologist Sig nature PTT 32 26 - 37 secs [facility] AB Specimen Blood - Venous blood (substance) Performing Organization Address [facility] Phon e Number [facility] [address] [place] [address] (ABNORMAL) PROTIME (07/14/2021 16:23 EDT) Pathologist Sig nature I.N.R. 1.1 0.9 - 1.1 Ratio [facility] Pro Time 12.7 (H) 10.4 - 12.6 secs [facility] Specimen Blood - Venous blood (substance) Narrative [facility] - 022 16:41 EDT Moderate Intensity Coumadin INR = 2.0-3.0 Adjustments in anticoagulant therapy dos e should be based on the INR and NOT on the Protime. Performing Organization Address [facility] Phon e Number [facility] [address] [place] [address] ANAEROBE CULTURE/SMEAR(INC. AEROBES), OTHER (07/14/2021 11:58 EDT) Pathologist Sig nature Organism ID No Growth [facility] Smear No Neutrophils Seen [facility] Smear No bacteria [facility] seenComment: Tissue [facility] submitted Specimen Tissue - Soft tissue (navigational marcelina pt) Performing Organization Address [facility] Phon e Number [facility] [address] [place] [address] ANAEROBE CULTURE/SMEAR(INC. AEROBES), OTHER (07/14/2021 11:57 EDT) Pathologist Sig nature Organism ID No Growth [facility] Smear No Neutrophils Seen [facility] Smear No bacteria [facility] seenComment: Tissue [facility] submitted Specimen Tissue - Soft tissue (navigational marcelina pt) Performing Organization Address [facility] Phon e Number [facility] [address] [place] [address] (ABNORMAL) ANAEROBE CULTURE/SMEAR(INC. AEROBES), OTHER (07/14/2021 11:56 EDT) Pathologist Sig nature Organism ID No Growth [facility] Smear Rare Neutrophils [facility] Present (A) [facility] Smear No bacteria seen [facility] MED (A)Comment: Tissue [facility] submitted Specimen Tissue - Soft tissue (navigational marcelina pt) Performing Organization Address [facility] Phon e Number [facility] [address] [facility] [place] [address] (ABNORMAL) ANAEROBE CULTURE/SMEAR(INC. AEROBES), OTHER (07/14/2021 11:54 EDT) Organism ID No Anaerobes Isolated [facility] Organism ID Growth in broth only Enterococcus faecalis (A) [facility] Comment: [facility] Combination therapy is recom mended for serious enterococcal infection, ampicillin, penicillin or vancomycin AND an aminoglycoside. Synergy occurs only when both drugs are susceptible. ??Penicillin susceptible is also susceptible to ampicillin, ampicillin-sulbactam, amoxic illin, amoxicillin-clavulante and piperacillin-tazobactam. Organism ID Growth in broth only Staphylococcus coagulase ne gative (A) [facility] Comment: [facility] Senstitivity not performed o n coagulase negative staph Isolate, ??Please contact Lab within 7 days for additional testing. Organism ID Growth in broth only [facility] Gram positive bacilli [facility] (A)Comment: Organism non-viable for identification. Smear Rare Neutrophils Present [facility] (A) [facility] Smear No bacteria seen [facility] (A)Comment: Tissue [facility] submitted Specimen Tissue - Soft tissue (navigational marcelina pt) Organism Antibiotic Method Susceptibility Enterococcus faecalis Benzylpenicillin VITEK SUSCEPTIBILITY 4 ug /mL: Susceptible Enterococcus faecalis Gentamicin HL VITEK SUSCEPTIBILITY S ug/ mL: Susceptible Enterococcus faecalis StreptomycinHL VITEK SUSCEPTIBILITY S ug/ mL: Susceptible Enterococcus faecalis Vancomycin VITEK SUSCEPTIBILITY 1 ug/ mL: Susceptible Performing Organization Address City/State/ZIP Code Phon e Number [facility] [address] [place] [address] SURGICAL PATHOLOGY (07/14/2021 11:51 EDT) Note to Patient The following [facility] pathology results [facility] have been interpreted by your pathologist and may be available to you before your health provider has had the opportunity to review them. Please allow time for your provider to receive these results and explore management options, if applicable. Final Diagnosis A. SOFT TISSUE, RIGHT KNEE FASCIA, BIOPSY: [facility] - No significant acute inflammation identified. [facility] B. SYNOVIUM, RIGHT KNEE, BIOPSY: - Predominantly fibrin with no significant acute infla mmation identified. C. SYNOVIUM, RIGHT KNEE, BIOPSY: - No significant acute inflammation identified. D. SYNOVIUM, RIGHT KNEE, BIOPSY: - No significant acute inflammation identified. E. SYNOVIUM, RIGHT KNEE, BIOPSY: - No significant acute inflammation identified. Attestation By the signature [facility] Jane azar below, the [facility] signed by Anay ferrari, attending physician Andres Urrutia MD on certifies that they 07/15/2021 at 1601 have 1) personally conducted a gross and/or microscopic examination of the described specimen(s), and/or personally interpreted the results of laboratory testing of the described specimen(s), and 2) personally rendered or confirmed the above diagnosis. Intraoperative A. [facility] Consultation FS DX: [facility] A) No significant acute inflammation identified [...] MD 07/14/21 1320 Clinical History Pre-op diagnosis: [facility] Effusion of right knee [M25.461] [facility] S/P total knee arthroplasty, right [Z96.651] Gross Description A. [facility] Received fresh and labeled ? Seng L. Almaz? and ? 1? is a 2.5 x 1.0 x 0.3 cm aggregate of almanza-pink tissue fragments. Entirely submitted for frozen sections. [facility] B. Received fresh and labeled ? [...] frozen section. Preliminary Diagnosis Frozen Section Diagnoses: [facility] AFS1: - No significant acute inflammation identi fied (1 block). [facility] BFS1: - Predominantly fibrin . No significant acute inflammation identified (1 block). CFS1: - No significant acute inflammation identified ( 1 block). DFS1-2: - No significant acute inflammation identified (2 blocks). EFS1: - No significant acute inflammation identified ( 1 block). The above frozen section tae gnoses were performed and evaluated by Chayo Guzmán MD on 07/14/21 at [facility]. The results were called to the operating room with Dr. Anderson on . The slides and staining quality of all slides were adequate for evaluation. Performing Lab [facility] Scanned Images [facility] Specimen Tissue - Entire synovial [...] Organization Address City/State/ZIP Code Phon e Number [facility] [address] [place], [place] [id number] ANAEROBE CULTURE/SMEAR(INC. AEROBES), OTHER (07/14/2021 11:51 EDT) Pathologist Sig nature Organism ID No Growth [facility] Smear No Neutrophils Seen [facility] Smear No bacteria [facility] seenComment: Tissue [facility] submitted Specimen Tissue - Fascia biopsy sample (specimen) Performing Organization Address City/[facility]/ZIP Code Phon e Number [facility] [address] [place] [phone] documented in this encounter Visit Diagnoses Diagnosis Hemarthrosis following procedure, subseq uent encounter S/P total knee arthroplasty, right Effusion of right knee Effusion of lower leg joint documented in this encounter Admitting Diagnoses Diagnosis [...] Routine acetaminophen (TYLENOL) tablet 975 mg Given 07/14/2021 9:23 EDT 975 mg 975 mg, oral, PRE-OP ONCE, 1 dose, On Tue07/14/21 at 0915, Routine, Preprocedure acetaminophen (TYLENOL) tablet 975 mg Given 07/16/2021 [...] mg Given 07/15/2021 8:38 EDT 81 mg calcium-vitamin D (CALTRATE D) 600 mg (1,500 Given 8:21 EDT 1 Tablet mg)-400 unit per tablet 1 Tablet 1 Tablet, oral, DAILY, First dose on Tue07/14/21 at 1630, Until Discontinued Given 07/15/2021 8:38 EDT 1 Tablet Given 07/14/2021 16:53 EDT 1 Tablet ceFAZolin in dextrose 5 % (ANCEF) IVPB DUPLEX Given 14:43 EDT 2,000 mg 2,000 mg 2,000 mg, intravenous, Administer over 30 Minutes, NOW X1, 1 dose, On Tue07/14/21 at 1445, Type of Therapy: Prophylaxis, Suspected Indication (Select all that apply): Surgical prophylaxis, Routine, Recovery (only) ceFAZolin in dextrose 5 % (ANCEF) IVPB DUPLEX Given 4:08 EDT 2,000 mg 2,000 mg 2,000 mg, intravenous, Administer over 30 Minutes, EVERY 8 HOURS, 2 doses, First dose on Tue07/14/21 at 2000, Last dose on Tue07/15/21 at 0400, Type of Therapy: Prophylaxis, Suspected Indication (Select all that apply): Surgical prophylaxis, Routine Given 07/14/2021 19:42 EDT 2,000 mg ceFAZolin in dextrose 5 % (ANCEF) IVPB [...] mg Given 07/15/2021 19:53 EDT 2,000 mg celecoxib (CELEBREX) capsule 200 mg Given 07/14/2021 9:23 EDT 200 mg 200 mg, oral, PRE-OP ONCE, 1 dose, On Tue07/14/21 at 0915, Routine, Preprocedure cyclobenzaprine (FLEXERIL) tablet 10 mg Given 07/15/2021 [...] mg Given 07/15/2021 20:27 EDT 300 mg gabapentin (NEURONTIN) capsule 600 mg Given 07/14/2021 9:23 EDT 600 mg 600 mg, oral, PRE-OP ONCE, 1 dose, On Tue07/14/21 at 0915, Routine, Preprocedure ketOROLAC (TORADOL) injection 15 mg Given 07/16/2021 10:18 EDT 15 mg 15 mg, intravenous, EVERY 6 HOURS, 20 doses, First dose on Tue07/14/21 at 1630, Last dose on Tue07/19/21 at 1030, Routine Given 07/16/2021 4:42 EDT 15 mg Given 07/15/2021 22:44 EDT 15 mg ketOROLAC (TORADOL) injection 30 mg Given 07/14/2021 14:43 EDT 30 mg 30 mg, intravenous, PRN, Starting on Tue07/14/21 at 1416, Until Tue07/14/21 at 1552, Pain, Routine, Recovery (only) lactated ringers (LR) infusion Restarted 07/14/2021 11:21 EDT at 25 mL/hr, intravenous, CONTINUOUS, Starting on Tue07/14/21 at 0915, Until Tue07/14/21 at 1608, Routine, Preprocedure Continued by Anesthesia 07/14/2021 11:11 EDT 25 mL/hr New Bag 07/14/2021 10:28 EDT 25 mL/hr lactated ringers (LR) infusion New Bag 07/15/2021 7:14 EDT 75 mL/hr at 75 mL/hr, intravenous, CONTINUOUS, Starting on Tue07/14/21 at 1630, Until Tue07/15/21 at 1745, Routine New Bag 07/14/2021 17:07 EDT 75 mL/hr methocarbamoL (ROBAXIN) tablet 500 mg Given 07/14/2021 9:23 EDT 500 mg 500 mg, oral, PRE-OP ONCE, 1 dose, On Tue07/14/21 at 0915, Routine, Preprocedure methocarbamoL (ROBAXIN) tablet 500 mg Given 07/16/2021 2:13 EDT 500 mg 500 mg, oral, 3 TIMES DAILY PRN, Starting on Tue07/14/21 at 1608, Until Ofe 07/16/21 at 1814, spasms, Routine morphine PF injection 1 mg Given 07/14/2021 22:53 EDT 1 mg 1 mg, intravenous, EVERY 2 HOURS PRN, Starting on Tue07/14/21 at 1604, Until Ofe 07/16/21 at 1814, Pain, breakthrough pain, Routine multivitamin-iron [...] Mccord RN)2244 (See Alternative - Provider: Pallavi Thurman RN) 0442 (See Alternative - Provider: Pallavi Thurman RN)1237 (See Alternative - Provider: Christy Hopper RN)1730 (Canceled Entry - Provider: Batch Job User Admin - Comment: Automatically canceled at discontinue of medication order) 975 mg, rectal, EVERY 6 HOURS, First dos e on Tue07/14/21 at 1730, Until Discontinued, Routine acetaminophen (TYLENOL) tablet 975 mg (COMPLETED) 922 (Given - Provider: Tigist Robles RN) 975 mg, oral, PRE-OP ONCE, 1 dose, On Tue07/14/21 at 09 15, Routine, Preprocedure acetaminophen (TYLENOL) tablet 975 mg(Linked Group 1) 1654 (Given - Provider: Christy Mccord RN)2252 (Given - Provider: Pallavi Thurman RN) 0527 (Given - Provider: Pallavi Thurman RN)1205 (Given - Provider: Christy Mccord RN)1632 (Given - Provider: Christy Mccord RN)2244 (Given - Provider: Palalvi Thurman RN) 0442 (Given - Provider: Pallavi Thurman RN)1237 (Given - Provider: Christy Hopper RN)1730 (Canceled Entry - Provider: Batch Job User Admin - Comment: Automatically canceled at discontinue of medication order) 975 mg (rounded from 1,000 mg), oral, EV JACINTO 6 HOURS, First dose on Tue07/14/21 at 1730, Until Discontinued, Routine amLODIPine (NORVASC) tablet 5 mg 08 (Given - P rovider: Christy Mccord RN) 0821 (Given - Provider: Christy Hopper RN) 5 mg, oral, DAILY, First dose on 07/15 at 0900, Until Discontinued, Routine ascorbic acid (vitamin C) (VITAMIN C) tablet 500 mg 20 (Given - Provider: Pallavi Thurman RN) 2026 (Given - Provider: Pallavi Thurman RN) 500 mg, oral, AT BEDTIME, First dose on Tue07/14/21 at 2100, Until Discontinued, Routine aspirin chewable tablet 81 mg 2042 (Given - Provider: Kaitlynn Thurman RN) 08 (Given - Provider: Christy Mccord RN)2026 (Given [...] 0821 (Given - Provider: Christy Hopper, SUSI) 1 Tablet, oral, DAILY, First dose on [...] % (ANCEF) IVPB DUPLEX 2,000 mg (COMPLETED) 194 (Given - Provider: Pallavi Thurman RN) 0408 [...] mg 1208 (Given - Provider: Christy Mccord RN)1953 (Given - Provider: Pallavi Thurman RN) 0442 (Given - Provider: Pallavi Thurman RN)1237 (Given - Provider: Christy Hopper, SUSI) 2,000 mg, intravenous, Administer over 3 0 [...] Preprocedure cholecalciferol (Vitamin D3) tablet 2,000 Units 1651 ( Not Given - Provider: Christy Mccord RN - Reason: Other - Comment: pt reports taking weekly vit D dose on 07/10/21) 1631 (Not Given - Provider: Christy Mccord RN - Reason: Other - Comment: pt took weekly dose 07/10) 1700 (Canceled Entry - Provider: Margot J ob User Admin - Comment: Automatically canceled at discontinue of medication order) 2,000 Units, oral, DAILY WITH DINNER, 10 doses, First dose on Tue07/14/21 at 1700, Last dose on Tue07/23/21 at 1700, Routine cyclobenzaprine (FLEXERIL) tablet 10 mg 2042 (Given - Provider: Pallavi Thurman RN) 2026 (Given - Provider: Pallavi Thurman RN) 10 mg, oral, AT BEDTIME, First dose on 07/14/21 at 2100, Until Discontinued, Routine docusate sodium (COLACE) capsule 200 mg 204 (Given - Provider: Pallavi Thurman RN) 0846 (Given - Provider: Christy Mccord RN)2 027 (Given - Provider: Pallavi Thurman RN) 0820 [...] Routine ferrous sulfate EC tablet 324 mg 08 (Given - P rovider: Christy Mccord RN) 0821 (Given - Provider: Christy Hopper, SUSI) 324 mg, oral, DAILY WITH BREAKFAST, Firs t dose on Tue07/15/21 at 0800, Until Discontinued gabapentin (NEURONTIN) capsule 300 mg 1652 (Given - Pr ovider: Christy Mccord RN)2042 [...] Routine, Preprocedure ketOROLAC (TORADOL) injection 15 mg 1815 (Not Given - Provider: Christy Mccord RN [...] mg iron -400 mcg tablet 1 Tablet 1654 (Given - Provider: Christy Mccord RN) 1607 [...] RN) 0847 (Given - Provider: Christy Mccord RN)202 (Given - Provider: Pallavi Thurman RN) 0820 [...] 1707 (New Ba g - Provider: Christy Mccord, RN) 0714 (New Bag - Provider: Christy Mccord, RN) at 75 mL/hr, intravenous, CONTINUOUS, St [...] Until Ofe 07/16/21 at 1814, Itching, Routine diphenhydrAMINE (BENADRYL) elixir 25 mg(Linked Group 2) 25 mg, oral, EVERY 6 HOURS PRN, Starting on Tue07/14/21 at 1604, Until Ofe 07/16/21 at 1814, Itching, Routine diphenhydrAMINE (BENADRYL) injection 25 mg(Linked Group 2) 25 mg, intravenous, EVERY 6 HOURS PRN, S tarting on Tue07/14/21 at 1604, Until Ofe 07/16/21 at 1814, Itching, Routine ketOROLAC (TORADOL) injection 30 mg (CANCELED) 1443 (G iven - Provider: Lynda Martin RN) 30 mg, intravenous, PRN, Starting on Tue07/14/21 at 1416, Until Tue07/14/21 at 1552, Pain, Routine, Recovery (only) loperamide (IMODIUM) capsule 2 mg 2 mg, oral, 4 TIMES DAILY PRN, Starting on Tue07/14/21 at 1608, Until Ofe 07/16/21 at 1814, Diarrhea methocarbamoL (ROBAXIN) tablet 500 mg 021 (Given - Provider: Pallaiv Thurman, SUSI) 500 mg, oral, 3 TIMES DAILY PRN, Startin g on Tue07/14/21 at 1608, Until Ofe 07/16/21 at 1814, spasms, Routine morphine PF injection 1 mg 2252 (Given - Provider: Pallavi Thurman RN) 1 mg, intravenous, EVERY 2 HOURS PRN, St arting on Tue07/14/21 at 1604, Until Tue07/16/21 at 1814, Pain, breakthrough pain, Routine ondansetron (PF) (ZOFRAN) injection 4 mg(Linked Group 3) 4 mg, intravenous, EVERY 6 HOURS PRN, St arting on Tue07/14/21 at 1604, Until Tue07/16/21 at 1814, Nausea, Vomiting, Routine ondansetron (ZOFRAN-ODT) disintegrating tablet 4 mg(Linked Group 3) 4 mg, oral, EVERY 6 HOURS PRN, Starting on Tue07/14/21 at 1604, Until Tue07/16/21 at 1814, Nausea, Routine oxyCODONE (ROXICODONE) immediate release tablet 10 mg( Linked Group 4) 165 (See Alternative - Provider: Christy Mccord RN)1753 (See Alternative - Provider: Christy Mccord RN)2150 (Given - Provider: Pallavi Thurman RN) 0942 (Given - Provider: Christy Mccord RN)202 (Given - Provider: Pallavi Thurman, SUSI) 0213 (Given - Provider: Pallavi Thurman, SUSI)0824 (See Alternative - Provider: Christy Hopper, SUSI)1517 (See Alternative - Provider: Christy Hopper RN) 10 mg, oral, EVERY 4 HOURS PRN, Starting on Tue07/14/21 at 1604, Until Ofe 07/16/21 at 1814, Pain, Severe Pain (7-10), Routine oxyCODONE (ROXICODONE) immediate release tablet 5 mg(L inked Group 4) 1652 (Given - Provider: Christy Mccord RN)1753 (Given - Provider: Christy Mccord, SUSI)2150 (See Alternative - Provider: Pallavi Thurman, SUSI) 0942 (See Alternative - Provider: Christy Mccord RN)2026 (See Alternative - Provider: Pallavi Thurman RN) 0213 (See Alternative - Provider: Pallavi Thurman, SUSI)0824 (Given - Provider: Christy Hopper RN)1517 (Given - Provider: Christy Hopper RN) 5 mg, oral, EVERY 4 HOURS PRN, Starting on Tue07/14/21 at 1604, Until Ofe 07/16/21 at 1814, Pain, Moderate Pain (4-6), Routine sodium chloride 0.9 % (flush) flush 5 mL 5 mL, intravenous, PRN, Starting on Tue07/14/21 at 1604, Until Ofe 07/16/21 at 1814, Line Care, Routine Linked Groups [...] St arting on Tue07/14/21 at 1604, Until Tue07/16/21 at 1814, Nausea, Vomiting, Routine Or ondansetron (ZOFRAN-ODT) disintegrating tablet 4 mgJump to med 4 mg, oral, EVERY 6 HOURS PRN, Starting on Tue07/14/21 at 1604, Until Tue07/16/21 at 1814, Nausea, Routine Group 4: oxyCODONE [...] ered Date First Ordered Date Been Administered acetaminophen (TYLENOL) suppository 975 mg 1 07/14 ascorbic acid (vitamin C) (VITAMIN C) 1 07/14/2021 tablet 500 mg bisacodyL (DULCOLAX) suppository 10 mg 1 bupivacaine liposome (PF) (EXPAREL) 1.3 % 1 2021 (13.3 mg/mL) infiltration chlorhexidine gluconate 0.05 % in water 07/15/19 (IRRISEPT) irrigation 450 mL cholecalciferol (Vitamin D3) tablet 2,000 1 2021 Units diphenhydrAMINE (BENADRYL) capsule 25 mg 1 diphenhydrAMINE (BENADRYL) elixir 25 mg 1 07/15/19 22 diphenhydrAMINE (BENADRYL) injection 25 mg 1 07/14 diphenhydrAMINE (BENADRYL) injection 6.25 1 2021 mg DULoxetine (CYMBALTA) delayed release 1 07/14/2021 capsule 40 mg fentaNYL citrate (PF) injection 25 mcg 1 HYDROmorphone (PF) (DILAUDID) 0.5 mg/0.5 1 022 mL syringe 0.5 mg lactated ringers (LR) infusion 1 07/14/2021 lidocaine (PF) 10 mg/mL (1 %) injection 2 1 2021 mg loperamide (IMODIUM) capsule 2 mg 1 07/14/2021 methocarbamoL (ROBAXIN) tablet 500 mg 07/14/2021 ondansetron (PF) (ZOFRAN) injection 4 mg ondansetron (ZOFRAN-ODT) disintegrating 1 07/15/19 22 tablet 4 mg oxyCODONE (ROXICODONE) immediate release tablet 5-10 mg scopolamine (TRANSDERM-SCOP) 1 mg over 3 1 022 days patch 1 Patch sodium chloride 0.9 % (flush) flush 5 mL 1 Procedures Count Last Ordered Date First Ordered [...] 07/16/2021 documented in this encounter Care Teams Transportation Associate Relationship Specialty Start Date End Date Toyin Frias, MARIUSZ PCP - General 05/07/21 [address] [place] [id number] documented as of this encounter
--- OUTSIDE RECORDS SUMMARY | 2021-10-09 00:06 | XMS_ITS | Encounter Summary ---
:1975 Author Organization [facility] Address [address] [place] [address] Care Team Providers Name Role Phone Toyin Frias NP Primary Care Provider Encounter Details Date Type Department Care Team Description 07/08/2021 Travel Social History Tobacco Use Types Packs/Day [...] Visit Orthopedic Surgery Derrell Baig MD [address] [id number] (Wo rk) documented as of this encounter Visit Diagnoses Not on filedocumented in this encounter Care Teams Acid Cutter Relationship Specialty Start Date End Date Toyin Frias NP PCP - General 05/07/[address] [place] [phone] documented as of this encounter
--- OUTSIDE RECORDS SUMMARY | 2021-10-09 00:06 | XMS_ITS | Encounter Summary ---
:1975 Author Organization [facility] Address [address] [place] [address] Care Team Providers Name Role Phone Toyin Frias NP Primary Care Provider Reason for Visit Reason Comments Wound Check Encounter Details Date Type Department Care Team Description 09/07/2021 Nurse Only [facility] - Nurse, [facility] tot al knee arthroplasty, right (Primary Dx); [facility] Postoper ative stitch abscess Sport [facility] [address] [place] [address] Social History Tobacco Use Types [...] Sig Dispensed Refills Start Date End Date cephalexin (KEFLEX) 500 Take 1 capsule by 28 capsule 0 09/0709/14/2021 mg capsule mouth every 6 hours for 7 days. documented in this encounter Progress Notes Germaine Catherine LPN - 09/07/2021 1500 EDT Seng presented today reporting on the distal end of her incision was red and she was having some blood and white puss drainage. Today the area was scabbed over and had a nickel sized area of redness surrounding it. CM in to see pt per him keflex was ordered and he obtained a wound culture. Pt will follow up as scheduled. documented in this encounter Plan of Treatment Upcoming Encounters Date Type Specialty Care Team Description 01/08/2022 Office Visit Orthopedic Surgery Derrell Baig MD [facility] [place] [address] (Wo rk) documented as of this encounter Procedures Procedure Name Priority Date/Time Associated Diagnosis Comme nts BACTERIAL Routine 09/07/2021 15:31 S/P total knee Results f or this CULTURE/SMEAR EDT arthroplasty, ri ght procedure are in Postoperative stitch the res ults abscess section. documented in this encounter Results BACTERIAL CULTURE/SMEAR (09/07/2021 15:31 EDT) Pathologist Sig nature Organism ID Few Comment: Usual [facility] skin juvenal [facility] Smear No Neutrophils Seen [facility] Smear No bacteria [facility] seenComment: E-swab [facility] Submitted Specimen Swab - Entire knee region (body structur e) Performing Organization Address City/State/ZIP Code Phon e Number [facility] [address] [place] [address] documented in this encounter Visit Diagnoses Diagnosis S/P total knee arthroplasty, right - Priscila stephanie Postoperative stitch abscess Other postoperative infection documented in this encounter Care Teams Vault Service Mechanic Relationship Specialty Start Date End Date Toyin Frias NP PCP - General 05/07/21 [address] [place] [phone] documented as of this encounter
--- OUTSIDE RECORDS SUMMARY | 2021-10-09 00:06 | XMS_ITS | Encounter Summary ---
:1975 Author Organization [facility] Address [address] [place] [address] Care Team Providers Name Role Phone Toyin Frias NP Primary Care Provider Reason for Visit Reason Comments Post-OP Follow Up Encounter Details Date Type Department Care Team Description 07/13/2021 Telemedicine [facility] - Reggie Nayak S/Yashira total knee arthroplasty, right (Primary Dx); [facility] & [facility] Hemarthrosis following procedure, subseq uent encounter Sport Medicine [address], [facility] [address] [place] [address] [place] [address] [phone] (Wo rk) Social History Tobacco Use Types [...] as of this encounter Progress Notes Reggie Nayak MD - 07/13/2021 1100 EDT [facility] Video Visit Today's visit was provided through telemedicine video conferencing: The location of the patient: Home The location of the provider: Office Verbal consent: The concept of ???Telemedicine?? has been described to the patient.Patient has been informed of theanticipated benefits and possible risks. Patient understands the information provided regarding telemedicine, has had the opportunity to ask questions about this information, and all questions have been answered to patient???s satisfaction. Patient consents for the use of telemedicine in his/her medical care and authorizes the transmission of any relevant medical information to providers and their staff involved in patient???s medical or mental health care. Verbal consent obtained by myself or auxiliary staff: yes. Subjective: Chief Complaint(s): No chief complaint on file. HPI: Seng Muse is a 45 y.o. female who is here today for follow up. Patient had knee replacement on June 30. Last weekend she presented to the emergency room with bleeding. She came back to the office on one week ago for dressing change. I saw her 3 days ago and there was still some bleeding noted. I changed the bandage and aspirated about 60-70 mL of serosanguinous fluid from the knee. There were no bacteria seen and cultures to date are negative. She says she changed the bandage yesterday because there was drainage on it. No fevers, sweats, chills. I have reviewed patient's tobacco history: reports that she has never smoked. She has never used smokeless tobacco. I have reviewed current problem list and current medications. ROS: Review of Systems Constitutional: Negative for chills and fever. Respiratory: Negative for cough and shortness of breath. Gastrointestinal: Negative for diarrhea, nausea and vomiting. Objective: Examination: Home Vitals: LMP 06/29/2021 (Exact Date) Pertinent exam findings: appears well, non-labored breathing, mood and affect appropriate and she did show me the incision and the bandage. There is mild to moderate serous drainage since yesterday. Data reviewed with patient: most recent labs reviewed: fluid analysis Assessment & Plan: 1. S/P total knee arthroplasty, right 2. Hemarthrosis following procedure, subsequent encounter Because of the persistent drainage we will proceed with surgery tomorrow as discussed last week. A total of 10 minutes was spent on this encounter on the day of this encounter. The following individuals and their role did participate in today's encounter visit: Provider: REGGIE NAYAK MD Patient documented in this encounter Plan of Treatment Upcoming Encounters Date Type Specialty Care Team Description 01/08/2022 Office Visit Orthopedic Surgery Derrell Nayak MD [address] [place] [phone] (Wo rk) documented as of this encounter Visit Diagnoses Diagnosis S/P total knee arthroplasty, right - Priscila stephanie Hemarthrosis following procedure, subseq uent encounter documented in this encounter Care Teams Veterinary Technician Instructor Relationship Specialty Start Date End Date Toyin Frias NP PCP - General 05/07/[address] [place] [phone] documented as of this encounter
--- OUTSIDE RECORDS SUMMARY | 2021-10-09 00:06 | XMS_ITS | Encounter Summary ---
:1975 Author Organization [facility] Address [address] [place] [id number] Care Team Providers Name Role Phone Toyin Frias NP Primary Care Provider Reason for Visit Auth/Cert Specialty Diagnoses / Procedures Referred By Contact Refer red To Contact Diagnoses Effusion of right knee S/P total knee arthroplasty, right Effusion of right knee [M25.461] S/P total knee arthroplasty, right [Z96.651] Procedures OK EXPLOR/DRAIN KNEE,INFECTN ARTHROTOMY, KNEE, WITH EXPLORATION, DRAINAGE, OR FOREIGN BODY REMOVAL Referral ID Status Reason Start Date Expiration Date Visits Requ ested Visits Authorized [id number] 07/14/2021 07/16/2021 1 1 Encounter Details Date Type Department Care Team Description 07/14/2021 Anesthesia Event [facility] - Marcelo Ferrell MD [address] [place] [phone] [facility] Operating Room Kathrin Mcneil CRNA [address] [facility], [address] [place] [phone] [place] [id number] Anesthesia Record Procedure Summary Procedure Name Responsible Anesthesia Start Anesthesia Stop Time Anesthesiologist Time ARTHROTOMY, KNEE, Con Ferrell 07/14/21 1111 07/14/21 1332 WITH Chantelle RAMIREZ MD DRAINAGE, OR FOREIGN BODY REMOVAL- Total Knee Revision, POLY EXCHANGE (Right Knee) Events Date Time Event Comment 07/14/2021 1111 An Start The patient was re-evaluated immediately before moderate or deep sedation use, before anesthesia induction, or be fore the anesthesia procedure. 1111 An Start Data 1122 Anesthesia Ready 1142 Partha Incision. Patien t tolerating well 1213 Partha Cultures sent, s urgeon requests antibiotics. 1325 an stop data 1332 An Stop 1342 Handoff to RN I completed my h andoff to the receiving nurse during which we: 1. Laurita ntified the patient 2. Identified the responsible provider 3. Reviewed the pertinent medical history 4. Discussed the surgical course 5. Reviewed intra-o p anesthesia management and issues during anesthesi a 6. Set expectations for post-procedure p eriod 7. Allowed opportunity for questions and ac knowledgement of understanding. Name Total lidocaine 2% (PF) injection glass vial 40 mg midazolam (VERSED) injection 1 mg/mL 4 mg ondansetron (PF) (ZOFRAN) injection 4 mg propOFol (DIPRIVAN) injection 980,420 mcg bupivacaine (PF) 0.5 % injection 2 mL tranexamic acid injection 2,000 mg ceFAZolin in D5W IVPB premade bag 2 g 2 g lactated ringers (LR) infusion 800 mL Agents Name O2 N2O Air Aux O2 flow Blood No blood administrations on file. Lines, Drains, and Airways Type Details Placement Removal Closed/Suction Drain 3; Right, Ventral; 07/14/21 1304 by Knee; 10 Australian Wound 07/14/21; 1147; 07/14/21 1147 by Anterior, Right; Knee; Ainsley Olivarez, sports teacher Incisions Wound 06/30/21; 0829; 06/30/21 0829 by 07/14/21 1339 b y Anterior, Right; Knee; Ainsley Olivarez, SUSI Coope rLynda RN Surgical Incisions; N; Full thickness; 07/14/21; 1339; Healed Peripheral IV 07/14/21; 0958; 20; 07/14/21 0958 by Travis, 07/16 1545 by Nona, Nolan, SUSI Escoto Emily, RN Proximal; Forearm; Inserted by RN; 3; None; Chlorhexidine; 07/16/21; 1545; No complications, Dressing applied, Catheter intact documented in this encounter Social History Tobacco Use Types Packs/Day Years [...] or older) documented as of this encounter OR Notes Anesthesia Postprocedure Evaluation - Kathrin Mcneil CRNA - 07/14/2021 1343 EDT Patient: Seng Muse Vital signs were reviewed with the recovery nurse. Complete vitals history is available in the Epic flowsheets. Vitals Value Taken Time BP 129/79 07/14/21 1340 Temp 36.6 ??C (97.9 ??F) 07/14/21 1330 Resp 13 07/14/21 1342 Pulse From Oximetry 77 BPM 07/14/21 1342 SpO2 96 % 07/14/21 1342 Vitals shown include unvalidated device data. Last Pain Score - Numeric Pain Level (Scale 1-10): 2 Type of Anesthesia - general Anesthesia Post Evaluation Post-procedure vitals reviewed and are stable. Level of consciousness: awake Temperature status: normothermia and patient returned to pre-procedure baseline Respiratory status: airway patent and stable Cardiovascular status: stable Hydration status: adequate Nausea/Vomiting: none Pain management: adequate Post-Op Assessment: patient tolerated procedure well with no complications Patient participation: able to participate Disposition: outpatient/home Anesthesia Complications: No apparent anesthesia complications nesthesia Procedure Notes - Kathrin Mcneil CRNA - 07/14/2021 1127 EDTAssociated Order(s): Spinal Block Spinal Block Patient location during procedure: OR Start time: 07/14/2021 11:14 End time: 07/14/2021 11:18 Staffing Performed: resident/BELT LOOP MAKER/AA Preanesthetic Checklist Completed: patient identified, IV checked, site marked, risks and benefits discussed, surgical consent, monitors and equipment checked, pre-op evaluation and timeout performed Spinal Block Patient position: sitting Prep: ChloraPrep, site prepped and draped, skin prep agent completely dried prior to procedure, sterile gloves, mask used and subcutaneous lidocaine Patient monitoring: BP cuff, heart rate, campus monitor and continuous pulse ox Approach: midline Location: L3-4 Injection technique: single-shot Needle Needle type: Quincke Needle gauge: 25 G Needle length: 3.5 in Assessment Events: no paresthesia Reason for block: surgical anesthesia nesthesia Preprocedure Evaluation - Con Ferrell MD - 07/14/2021 0933 EDT Anesthesia Preprocedure Evaluation 45 yo w/ GERD, HTN, remote DVT, on Ozempic for weight loss (no diabetes). Had TKR 2 weeks ago, incision has been oozing. Scheduled for knee arthrotomy, TKR revision today. Patient Medical History, including Anesthesia History reviewed. Chart and Nursing Notes reviewed, including NPO status and Medication History. Additional ROS/History Findings: No current facility-administered medications on file prior to encounter. Current Outpatient Medications on File Prior to Encounter Medication Sig Dispense Refill ??? acetaminophen/diphenhydramine (TYLENOL PM ORAL) Take 2 Tablets by mouth at bedtime. ??? amLODIPine (NORVASC) 5 mg tablet Take 5 mg by mouth daily. ??? ascorbic acid, vitamin C, (VITAMIN C) 500 mg tablet at bedtime. ??? aspirin 325 mg tablet Take 1 Tablet by mouth 2 times daily for 28 days. (Patient taking differently: Take 81 mg by mouth 2 times daily. ) 56 Tablet 0 ??? Calcium Carbonate 600 mg calcium (1,500 mg) tablet 2 tab(s) orally twice a day ??? celecoxib (CELEBREX) 200 mg capsule Take 200 mg by mouth 2 times daily. ??? cephalexin (KEFLEX) 500 mg capsule Take 1 capsule by mouth 4 times daily for 7 days. 28 capsule 0 ??? cyanocobalamin (VITAMIN B-12) 500 mcg tablet Take by mouth four times a week. ??? cyclobenzaprine (FLEXERIL) 10 mg tablet Take 10 mg by mouth at bedtime. ??? diclofenac sodium 1 % gel Apply 2 g topically if needed. ??? DULoxetine (CYMBALTA) 60 mg capsule ??? ergocalciferol (DRISDOL; VITAMIN D2) 1,250 mcg (50,000 unit) capsule 1 cap(s) orally once a week ??? ferrous sulfate 325 mg (65 mg iron) tablet Take 325 mg by mouth daily. ??? gabapentin (NEURONTIN) 300 mg capsule TAKE 1 TO 3 CAPSULES ORALLY 3 TIMES A DAY FOR CHRONIC PAIN ??? loperamide (IMODIUM A-D) 2 mg tablet Take by mouth 4 times daily as needed. ??? methocarbamoL (ROBAXIN) 500 mg tablet Take 1 Tablet by mouth 3 times daily as needed for Muscle Spasms. 90 Tablet 0 ??? multivitamin capsule 1 cap(s) orally twice a day ??? omeprazole (PRILOSEC) 20 mg capsule ??? oxyCODONE (ROXICODONE) 5 mg immediate release tablet Take 1 Tablet by mouth every 8 hours as needed for Pain (Severe Pain (7-10)). Daily Max: 15 mg 9 Tablet 0 ??? OZEMPIC 1 mg/dose (4 mg/3 mL) pen injector PATIENT TAKES ON TUESDAY' ??? OZEMPIC subcutaneous pen INJECT 0.25 MG SUBCUTANEOUSLY ONCE A WEEK FOR DIABETES Current Facility-Administered Medications Medication Route Frequency ??? chlorhexidine gluconate 0.05 % in water (IRRISEPT) irrigation 450 mL irrigation Intra-Op Once ??? lactated ringers (LR) infusion intravenous CONTINUOUS ??? lidocaine (PF) 10 mg/mL (1 %) injection 2 mg intradermal PRN No Known Allergies Past Medical History: Diagnosis Date ??? Bowel disease ??? DVT (deep venous thrombosis) ([facility] ([facility]) 2004 from thoracic outlet syndrome ??? GERD (gastroesophageal reflux disease) ??? Hypertension ??? Thoracic outlet syndrome had rib resection and resolved this issue per patient Relevant Problems Neuro/Psych (+) History of DVT (deep vein thrombosis) Other (+) Arthritis of right knee Past Surgical History: Procedure Laterality Date ??? CARPAL TUNNEL RELEASE Bilateral 2009 ??? FOOT SURGERY Left 2010 plantar fasciitis ??? [place]STRIC [place]PASS [place] [facility] [place]?? KNEE SURGERY Right 04/09/2019 hardware removal ??? KNEE SURGERY Right 2007 knee tibial osteotomy/ microfracture ??? KNEE SURGERY Left 2008 arthroscopy/ microfracture ??? KNEE SURGERY Bilateral 1990 arthroscopy-osteochondritis dessicians ??? RIB RESECTION 2005 partial rib removal Past Anesthetics 06/30/21 TKR, spinal 01/2016 lap gastric restriction Mask Ventilation: Easy (1); ETT Type: Cuffed, Oral; ETT Size: 7.5 mm; Mac Blade: 3; Notes: Asleep, Pre-O2; Attempts: 1; Laryngoscopy Grade: 1; ETT Placement Verified By: Auscultation, Capnometry, Visual; Secured at Teeth: 22 cm; Inserted by: cande [x] No history of complications from anesthesia [x]No family history of allergic reactions to anesthesia Review of Systems SOCIAL HISTORY: Social History Tobacco Use Smoking Status Never Smoker Smokeless Tobacco Never Used Social History Substance and Sexual Activity Drug Use Never Comment: 10 Social History Substance and Sexual Activity Alcohol Use Yes ??? Alcohol/week: 14.0 standard drinks ??? Types: 14 Glasses of wine per week Comment: 1-2 glasses of wine per day No results found for: GLUCOSEPOC Lab Results Component Value Date WBC 6.23 07/02/2021 HGB 9.1 (L) 07/08/2021 HCT 27.8 (L) 07/08/2021 MCV 93 07/02/2021 PLT 204 07/02/2021 Lab Results Component Value Date NA 137 07/01/2021 K 3.8 07/01/2021 CL 104 07/01/2021 CO2 27 07/01/2021 Lab Results Component Value Date BUN 16 07/01/2021 Lab Results Component Value Date CREATININE 0.57 07/01/2021 No results found for: INR, PROTIME No results found for: PTT UPT: [] Patient declines test No results found for: PREGUR COVID: [] None on file No results found for: COVIDUV Blood Type: ABO Date/Time Value Ref Range Status 06/30/2021 07:50 A Final Rh Factor Date/Time Value Ref Range Status 06/30/2021 07:50 Positive Final Antibody Screen Date/Time Value Ref Range Status 06/30/2021 07:46 Negative Final Specimen Expires: Date/Time Value Ref Range Status 06/30/2021 07:46 07/30/2021 @ 23:59 Final EKG: [] N/A ECHO: [] N/A Cardiac Stress: [] N/A BP (!) 200/110 (BP Cuff Location: Right arm) Temp 36.6 ??C (97.9 ??F) (Oral) Resp 14 Ht 167.6 cm (66) Wt (!) 104.3 kg (230 lb) LMP 06/29/2021 (Exact Date) SpO2 100% BMI 37.12 kg/m?? Pulse From Oximetry: -- Physical Exam Airway Mallampati: II TM distance: >3 FB Neck ROM: full Cardiovascular - normal exam Dental - normal exam Pulmonary - normal exam Abdominal Anesthesia Plan ASA 2 Anesthesia Type - neuraxial block - via spinal Anesthesia plan and risks discussed. Informed consent obtained from patient. Specific risks discussed were headache, nerve damage and infection. The preoperative history and physical which was performed within 30 days of this procedure, has beenreviewed and the clinically appropriate elements of the physical examination have been repeated. There are no changes to the documented history and physical or, if so, such changes are documented in this note PAT Note Notes from 06/14/21 through 07/14/21 No notes of this type exist for this encounter. documented in this encounter Plan of Treatment Upcoming Encounters Date Type Specialty Care Team Description 01/08/2022 Office Visit Orthopedic Surgery Derrell Baig MD [address] [id number] (Wo rk) documented as of this encounter Procedures Procedure Name Priority Date/Time Associated Comments Diagnosis ANESTHESIA SPINAL Routine 07/14/2021 11:27 Result s for this BLOCK EDT procedure are i n the results section. documented in this encounter Results Spinal Block (07/14/2021 11:27 EDT) Narrative Kathrin Mcneil CRNA - 07/14/2021 11:27 ED T Kathrin Mcneil CRNA ? 07/14/2021 11:29 Spinal Block Patient location during procedure: OR Start time: 07/14/2021 11:14 End time: 07/14/2021 11:18 Staffing Performed: resident/BELT LOOP MAKER/AA Preanesthetic Checklist Completed: patient identified, IV checke d, site marked, risks and benefits discussed, surgical consent, monitors an d equipment checked, pre-op evaluation and timeout performed Spinal Block Patient position: sitting Prep: ChloraPrep, site prepped and drape d, skin prep agent completely dried prior to procedure, sterile gloves , mask used and subcutaneous lidocaine Patient monitoring: BP cuff, heart rate, campus monitor and continuous pulse ox Approach: midline Location: L3-4 Injection technique: single-shot Needle Needle type: Quincke Needle gauge: 25 G Needle length: 3.5 in Assessment Events: no paresthesia Reason for block: surgical anesthesia documented in this encounter Visit Diagnoses Not on filedocumented in this encounter Administered Medications Inactive Administered Medications - up to 3 most recent administrations Medication Order MAR Action Action Date Dose Rate Site bupivacaine (PF) (MARCAINE) 0.5% Given 07/14/2021 11:18 EDT 2 mL injection epidural, PRN, Starting on 07/14/21 at 1118, Until 07/14/21 at 1342, Routine, Anesthesia Intraprocedure ceFAZolin in dextrose 5 % (ANCEF) IVPB D UPLEX Given 07/14/2021 12:12 EDT 2 g intravenous, Administer over 30 Minutes, PRN, Starting on 07/14/21 at 1212, Until 07/14/21 at 1342, Routine, Anesthesia Intraprocedure lactated ringers (LR) infusion Restarted 07/14/2021 11:21 EDT at 25 mL/hr, intravenous, CONTINUOUS, Starting on 07/14/21 at 0915, Until 07/14/21 at 1608, Routine, Preprocedure Continued by Anesthesia 07/14/2021 11:11 EDT 25 mL/hr New Bag 07/14/2021 10:28 EDT 25 mL/hr lidocaine (PF) 20 mg/mL (2 %) injection Given 07/14/2021 11:21 EDT 40 mg other, PRN, Starting on 07/14/21 at 1121, Until 07/14/21 at 1342, Routine, Anesthesia Intraprocedure midazolam (PF) (VERSED) injection Given 07/14/2021 11:15 EDT 2 mg intravenous, PRN, Starting on 07/14/21 at 1115, Until 07/14/21 at 1342, Routine, Anesthesia Intraprocedure Given 07/14/2021 11:12 EDT 2 mg ondansetron (PF) (ZOFRAN) injection Given 07/14/2021 12:48 EDT 4 mg intravenous, PRN, Starting on 07/14/21 at 1248, Until 07/14/21 at 1342, Routine, Anesthesia Intraprocedure propOFol (DIPRIVAN) injection Rate Change 07/14/2021 12:37 50 mcg/kg/min 31.29 mL/hr intravenous, FA IP EQF EDT CONTINUOUS PRN FOR ONE STEP MEDS, Starting on e 07/14/21 at 1121, Until 07/14/21 at 1342, Routine, Anesthesia Intraprocedure Rate Change 07/14/2021 12:06 EDT 75 mcg/kg/min 46.935 mL/hr Rate Change 07/14/2021 11:55 EDT 100 mcg/kg/min 62.58 mL/hr tranexamic acid (CYKLOKAPRON) injection Given 07/14/2021 12:46 EDT 1,000 mg intravenous, PRN, Starting on Tue07/14/21 at 1132, Until Tue07/14/21 at 1342, Routine, Anesthesia Intraprocedure Given 07/14/2021 11:32 EDT 1,000 mg documented in this encounter Care Teams Roll On Man Relationship Specialty Start Date End Date Toyin Frias, MARIUSZ PCP - General 05/07/[address] [place] [phone] documented as of this encounter
--- OUTSIDE RECORDS SUMMARY | 2021-10-09 00:06 | XMS_ITS | Encounter Summary ---
:1975 Author Organization [facility] Address [address] [place] [address] Care Team Providers Name Role Phone Toyin Frias NP Primary Care Provider Reason for Visit Reason Onset Date Comments Appointment Related 07/21/2021 Patient cancelling M BB and RFA appts Encounter Details Date Type Department Care Team Description 07/21/2021 Telephone [facility] - Naz Norton, Caryn ointment Related [facility] RN (Patient cancelling MBB [address] and RFA appts) [place] [address] Social History Tobacco Use Types Packs/Day Years [...] this encounter Miscellaneous Notes Telephone Encounter - Gail Gilmore NP - 07/22/2021 1043 EDT Noted. Thank you elephone Encounter - Naz Norton RN - 07/21/2021 1659 EDT Phone call placed to patient today to review pre-procedure instructions for upcoming appt on 07-31-21for MBB #1, she states that she is going to cancel those because she just had a knee replacement and no longer has back pain.. She feels that things may have been re-aligned and no longer has back pain. Advised that we will cancel her MBB and RFA appointments per her request and if she changes her mind or back pain is returning, she will need to follow-up with Rico Gilmore. Patient appreciative of call and agreeable to plan. Renata Powell, pain clinical research spec/ticket scheduler updated. documented in this encounter Plan of Treatment Upcoming Encounters Date Type Specialty Care Team Description 01/08/2022 Office Visit Orthopedic Surgery Derrell Baig MD [address] [place] [phone] (Wo rk) documented as of this encounter Visit Diagnoses Not on filedocumented in this encounter Care Teams Vacation Planner Relationship Specialty Start Date End Date Kopecky, Toyin, ASSET PROTECTION LEAD PCP - General 05/07/21 [address] [place] [phone] documented as of this encounter
--- OUTSIDE RECORDS SUMMARY | 2021-10-09 00:07 | XMS_ITS | Encounter Summary ---
:1975 Author Organization [facility] Address [address] [place] [address] Care Team Providers Name Role Phone Toyin Frias NP Primary Care Provider Reason for Referral Referral (Routine/Next Available) - Authorization Not Required Specialty Diagnoses / Procedures Referred By Contact Refer red To Contact Diagnoses Arthritis of right knee Erendira Jewell NP - [address] [place], [place] [address] [place] [id number] Fax: Referral ID Status Reason Start Expiration Visits Visits Date Date Requested Authorized [id number] Authorization Specialty 1 1 Not Required Services 2 Required Question Answer I certify that this patient is under my care 07/01/2021 and that I, or another Medicare allowed practitioner (DO BASIA, SHAUNA) working with me, had a [id number] encounter with this patient on this date: The discharge summary or progress note will Yes provide further details that support the need for the home health services and the plan of care. Enter the allowed practitioner (DO BASIA, SHAUNA) Shell Baig who will provide oversight of this patient's home heatlh care needs and plan of care The patient? s/p right total knee arthroplasty s homebound status is related to the following diagnoses, illness or condition (describe): Patient [...] considerable and taxing effort: Skilled Care Requested Physical Therapy Physical therapy is needed for: Evaluation, Safety, Ga it/Mobility Assessment and Training T/OT/ST (Routine/Next Available) - Authorization Not Required Specialty Diagnoses / Procedures Referred By Contact Refer red To Contact Physical Therapy Diagnoses Arthritis of right knee Donnie Baig MD [address] [place] [address] Referral ID Status Reason Start Expiration Visits Visits Date Date Requested Authorized [id number] Authorization Specialty 1 1 Not Required Services 2 Required Question Answer Surgery (and Date): 06/30/2021 Reason for Request: right TKR Comments [facility] Physical Therapy in [place] Specialty Diagnoses / Procedures Referred By Contact Refer red To Contact Donnie Baig MD [address] [place] [address] Referral ID Status Reason Start Date Expiration [...] By Contact Refer red To Contact Diagnoses Primary osteoarthritis of right knee Primary osteoarthritis of right knee [M17.11] Procedures [place] TOTAL KNEE ARTHROPLASTY ARTHROPLASTY, KNEE, TOTAL Referral ID Status Reason Start Date Expiration Date Visits Requ ested Visits Authorized [id number] 1 1 Encounter Details Date Type Department Care Team Description 06/30/2021 - [facility] Meriam, Christopher Ar thritis of right knee (Primary Dx); 07/02/2021 Encounter - [facility] [place]ia / MD Shell S/P total knee arthroplasty, right Surgical [address] [place] [address] [place] [address] [phone] (Wo rk) Social History Tobacco Use Types [...] Sign Reading Time Taken Comments Blood Pressure 119/64 07/02/2021 1331 EDT Pulse - - Temperature 36.9 ??C (98.5 ??F) 07/02/2021 1331 EDT Respiratory Rate 16 07/02/2021 1331 EDT Oxygen Saturation 99% 07/02/2021 1331 EDT Inhaled Oxygen Concentration - - Weight 103.9 kg (229 lb) 06/30/2021 0655 EDT Height 167.6 cm (5' 6) 06/30/2021 0655 EDT Body Mass Index 36.96 06/30/2021 0655 EDT documented in this encounter Functional Status [...] encounter Discharge Summaries Donnie Baig MD - 07/01/2021 1135 EDT Admit Date: 06/30/2021 Discharge Date: 07/01/2021 Primary Diagnosis: Right knee DJD Secondary Diagnosis: Patient Active Problem List Diagnosis ??? Internal nasal lesion ??? Enlarged uterus ??? History of DVT (deep vein thrombosis) ??? IBS (irritable bowel syndrome) ??? Iron deficiency ??? Morbid obesity (HCC-CMS) (HCC) ??? OA (osteoarthritis) ??? Primary osteoarthritis of knees, bilateral ??? Right knee DJD ??? S/P laparoscopic sleeve gastrectomy ??? Arthritis of right knee CC: Toyin Frias NP Home Health HPI: Patient is a 45-year-old woman with many year history of right knee problems. Because of medial compartment arthritis, she had a high tibial osteotomy at [facility]. She says ever since the surgery she has had some deformity of the knee. She is never completely had pain relief. Her pain is progressively gotten worse. Radiographs and clinical exam are consistent with a severe valgus deformity with late stage degenerative changes of the knee. She has failed to improve with nonoperative therapy and is admitted to the hospital for revision to total knee arthroplasty. Hospital Course: Admitted as a date of surgery admission for extended recovery for right knee replacement. Patient had uncomplicated surgery on the right knee. She was transferred from the operating room to the recovery room later to the medical surgical allred for recovery. On postop day 1 she has had a fair amount of pain. She required aggressive pain management. She was kept in the hospital for management of her pain and to work with physical therapy. She noted gradual improvement. By postoperative day 2 she was more comfortable. She worked well with physical therapy. We did obtain leg alignment films. She was discharged to home on postop day 2. Consults: Physical therapy/Occupational Therapy/Care Management Exam: General: Awake, alert, oriented to person place and time. No acute distress. Blood pressure 117/76, temperature 37.1 ??C (98.8 ??F), temperature source Oral, resp. rate 16, height 167.6 cm (66), weight (!) 103.9 kg (229 lb), last menstrual period 06/29/2021, SpO2 95 %. Abdomen: Soft and nontender Ext: Bandage intact right lower extremity. . Compartments soft. CSMT intact Recent Labs 07/01/21 0636 WBC 7.82 HGB 8.7* HCT 25.9* NA 137 K 3.8 CL 104 CO2 27 BUN 16 CREATININE 0.57 Imaging: Xrays of the legs. Study includes long-leg alignment film taken date of discharge. Images show a right total knee arthroplasty. There is some persistent valgus alignment of the limb but is markedly improved from preoperatively. Condition: Stable Follow up: [facility] in 4 week(s) with X-rays right knee documented in [...] 20 mg documented as of this encounter Ordered Prescriptions Prescription Sig Dispensed Refills Start Date End Date oxyCODONE (ROXICODONE) 5 Take 1 Tablet by 15 Tablet 0 07/0107/08/2021 mg immediate release mouth every 6 hours tablet as needed for Pain (Severe Pain (7-10)). Daily Max: 20 mg aspirin 325 mg tablet Take 1 Tablet by 56 Tablet 0 07/02/19 22 07/16/2021 mouth 2 times daily for 28 days. acetaminophen (TYLENOL) Take 2 Tablets by 0 07/0107/08/2021 500 mg tablet mouth every 8 hours as needed for up to 7 days for Pain or Fever. documented in this encounter Discharge Disposition Disposition Code Departure Means Destination Home or Self Prison documented in this encounter Progress Notes Gail Orr, PT - 07/02/2021 4683 EDT [facility] Physical Therapy Discontinue/Discharge Note Date of Service: 07/02/2021 SUBJECTIVE: Patient is currently having difficulty with: pain Patient/caregiver states: I was able to sleep much better last night. Patient and Caregiver Goals: Go home, Move around on my own, Decrease pain Subjective Information Reported by: Patient Numeric Pain Scale Numeric Pain Level (Scale 1-10): 4 Pain Comments: R knee pain with mobility. OBJECTIVE: In this reporting period 06/30/21 to today, the patient has been seen for physical therapy services. Please refer to the physical therapy notes for specifics on the patient's treatment sessions. Interventions Completed Today: Procedures: Gait training Gait Training Minutes: 15 Gait Training 1: Patient ambulated 200 ft with B crutches with supervision. Emphasis on progression of hip, knee flexion with swing phase/heel strike/toe off. Increased pain initially with improved tolerance of gait pattern with distance. Patient safe to mobilize at mod/ind level. Patient Status at the End of the Therapy Session, The patient was left in the: bed with the: Call wells in reach Patient/Family Education: Braces and Equipment: Assistive device/technique Mobility, Transfers, and Gait: Mobility recommendations, Gait training safety Recommendations: Discharge recommendations/planning Team Communication Notified: Nurse, operations section manager, Physician When: After therapy session By: [id number] communication, Other About: Discharge recommendations. Mobility performance. ASSESSMENT: Patient continued to demonstrate safe independent mobility with use of B axillary crutches. Patient continues to be limited with R knee pain and ROM but is demonstrating good progression of HEP and mobility to continue to progress at home. Safe to DC home with PT. Short-Term Goals: Time Frame: 5 days - 07/06/21 Goal: Patient with ascend/descend 4 steps with mod/ind and B axillary crutches. Status: Met Goal: Patient will ambulate 300 ft with B axillary crutches, step through pattern and R knee pain <2/10, mod/ind. Status: Met, Progressing Comments: Continues to report pain 4/10 with ambulation. Goal: Patient will be I with HEP. Status: Met Goal: Patient will demonstrate R knee extension < -10 degrees from neutral with <2/10 R knee pain. Status: Progressing Long-Term Goals: Time Frame: NA PLAN: Patient/Family Education: Discharge planning, Equipment, Recommendations, Symptom management Recommended Discharge Destination: Home with family support/supervision Therapy Specific Services: Physical therapy Equipment Dispensed: Mobility Equipment Mobility Equipment: Crutches Crutch Specifics: Axillary crutches Gail Orr PT 07/02/2021 17:58 Janeht Pitt RN - 07/02/2021 1436 EDT Nursing Discharge Note D: Patient noted with discharge orders to: home. Left in private vehicle with family. A: Prescriptions faxed to pharmacy. Reviewed discharge instructions and prescriptions with Patient and Family IV d/c'd. Belongings collected and sent home with patient. R: Patient verbalized understanding of discharge instructions and denied further questions. Left with crutches and all belongings. Alert and oriented x4. VSS. JANETH BENSON RN 07/02/2021 17:19 Dean Barfield MD - 07/02/2021 1021 EDT ORTHOPAEDIC PROGRESS NOTE Subjective: The patient was evaluated on morning rounds. They are POD 2 from right total knee arthroplasty. No acute adverse events reported overnight. The patient does report that she is moving her bowels and going to the bathroom. She reports that her pain is significantly improved. She denies any fevers or chills. Is encouraged to be discharged today to home, pending progress with physical therapy and pain control Physical Exam: Mild area of serosanguineous drainage on the dressing, dressing overall intact. There is mild blanching erythema surrounding the knee. Distally neurovascular intact throughout warm well-perfused Assessment and Plan: The patient is POD 2 from right total knee arthroplasty. Recovering well. The patient did have some pain management issues early on her recovery course, but these seem to have significantly improved over the interval. She is encouraged to be discharged home today if possible. I do not appreciate any adverse events over the interval which would preclude this. - DVT ppx, SCDs - PT/OT, weightbearing as tolerated weight bearing status - Pain control - Diet - Orthopaedics to continue to monitor Daniela Rivera, RN - 07/02/2021 0447 EDT Pt is AOx4. Slight temperature of , 99.1 F otherwise VSS. Patient reporting moderate to severe knee pain. Patient states I feel like it is hard to get it in a comfortable position it just hurts so bad. Scheduled pain meds and oxycodone (10 mg) administered with positive effect. Patient re-edcuated on knee precautions. Up to BR with crutches. CSMTs are WNL. Right knee has significant edema and notable erythema and calor. Small amount of sanguineous drainage visible on original foam surgical dressing. Outlined and expanded very slightly throughout shift. Complaining of constipation. Colace and senna given. Declined ducolax. BS active and (+) flatus. Safety maintained. Call wells within reach. Gail Holt PT - 07/01/2021 1610 EDT [facility] Initial Evaluation Note Date of Service: 07/01/2021 Diagnosis: R TKR Date of Onset: 06/30/21 Referring Provider: Donnie Baig MD. Reason for Referral: Evaluate and treat Precautions: Other Orthopedic Precautions: Total knee precautions SUBJECTIVE: Patient is currently having difficulty with: pain, mobility Patient/caregiver states: It's very painful keeping leg on the pillow. Patient and Caregiver Goals: Go home, Decrease pain, Be independent Subjective Information Reported by: Patient Pain Comments: Patient reported 4/10 with mobility, ambulation. Pain over posterior/lateral knee capsule with attempting knee extension positioning, increased to 7/10. Primary Pain Site Assessment Pain Location: Knee Pain Orientation : Right Medical/Surgical History: Current: Patient Active Problem List Diagnosis ??? Internal nasal lesion ??? Enlarged uterus ??? History of DVT (deep vein thrombosis) ??? IBS (irritable bowel syndrome) ??? Iron deficiency ??? Morbid obesity ([facility]) ([facility]) ??? OA (osteoarthritis) ??? Primary osteoarthritis of knees, bilateral ??? Right knee DJD ??? S/P laparoscopic sleeve gastrectomy ??? Arthritis of right knee Past: Past Medical History: Diagnosis Date ??? Bowel disease ??? DVT (deep venous thrombosis) ([facility]) ([facility]) 2004 from thoracic outlet syndrome ??? GERD (gastroesophageal reflux disease) ??? Hypertension ??? Thoracic outlet syndrome had rib resection and resolved this issue per patient Past Surgical History: Procedure Laterality Date ??? CARPAL TUNNEL RELEASE Bilateral 2009 ??? FOOT SURGERY Left 2010 plantar fasciitis ??? GASTRIC BYPASS SURGERY 2016 [place] ??? KNEE SURGERY Right 04/09/2019 hardware removal ??? KNEE SURGERY Right 2007 knee tibial osteotomy/ microfracture ??? KNEE SURGERY Left 2008 arthroscopy/ microfracture ??? KNEE SURGERY Bilateral 1990 arthroscopy-osteochondritis dessicians ??? RIB RESECTION 2006 partial rib removal HPI: Patient is 45 year old female s/p R TKR. Support Support Person: Significant other Prior level of function: Independent with all mobility. Basic Activities of Daily Living - General Level of Assistance Throughout: Independent Instrumental Activities of Daily Living - General Level of Assistance Throughout: Independent Home Environment: Safety Assessment / Living Environment Home environment: House Home layout: One level Entrance Stairs: Stairs to enter with rails # of Steps to Enter: 4 Entrance Stairs - Rails: Left Bathroom Set up: Tub/shower unit, Walk-in shower, Standard toilet Bedrooms/Bathrooms: Able to live on main level with bedroom/bathroom Mobility Equipment: Cane Support Person: Significant other OBJECTIVE: Patient Profile: Patient is a 45 y.o. female admitted on 06/30/2021 secondary to Right knee DJD The patient lives at [place] [address] Arousal, Attention, and Cognition: Orientation: Alert Oriented to person, place, and time Cardiopulmonary: Patient vital signs stable per flowsheets and patient not symptomatic during examination Integumentary/Anthropometric: Palpation/Observation: Edema through RLE knee, lower LE. Dressing over surgical incision C/D/I. Posture: No problem noted Range of Motion: Active Range of Motion: RLE knee flexion 20-95 degrees. Limited by pain into knee extension. Muscle Performance: Strength: RLE grossly >3/5 within available pain-free ROM. Sensation, Reflexes, and Nerve Integrity: Light Touch Sensation: Upper Quarter:Intact C2-T1 Lower Quarter: Intact for lower extremities Neuromotor Function/Development: No problems noted Balance: No loss of balance observed throughout physical therapy session Bed Mobility and Transfers: supine to sit: Mod/ind sit to supine: mod/ind sit to stand: mod/ind stand to sit: mod/ind bed to chair: mod/ind Chair to bed: mod/ind Gait and Stairs: Assistive device/distance/assist/deviations: Patient amb 50 ft with B axillary crutches and supervision. Cueing for step through gait pattern. Stairs: assist needed/number of steps: Ascended/descended 4 steps with B axillary crutches vs. Unilateral rail with supervision. Informed Consent: The patient consented to the physical therapy evaluation. The patient agrees to and understands the physical therapy treatment plan and goals. Interventions Completed Today: Time: 901;1025 Total Treatment Time (minutes): 41 Timed Code Treatment Minutes: 25 Therapy Session: A therapy technician was present for the physical therapy session Procedures: Gait training Gait Training Minutes: 15 Gait Training 1: Gait training performed with B axillary crutches for progression of home mobility. Patient ambulated x 50 ft with crutches, step through pattern with good control and tolerance to R LEweightbearing. Patient limited into knee extension with early toe off in RLE stance phase. Stair nego tiation progressed with patient with cueing for use of unilateral rail, gait pattern. Ascended/descended 4 steps with SBA and cueing for sequencing pattern. Progression of stair negotiation with axillary crutches with mod/ind performance after cueing for pattern. Procedures: Therapeutic exercise Therapeutic Exercises Minutes: 10 Therapeutic Exercise 1: Patient resting position in bed with R hip ER, knee flexion to comfort. Discussed importance of maintaining mobility into knee extension as able. Positioned on pillow with cueing for IR of hip. Patient endorsed increased discomfort attempt to improve RLE relaxation in position. Unable to tolerate with pain to 7/10 and patient tearing up due to discomfort. Removed pillow and reviewed quad sets to tolerance to continue to porgress extension mobility as able. Discussed performing in gentle range with slow progression to improve activity tolerance. Returned to patient comfortable position to improve pain. Nursing in for pain management. Additional information may be available in the medical record. Patient/Family Education: Braces and Equipment: Assistive device/technique Exercise: Exercise program Mobility, Transfers, and Gait: Gait training safety, Functional transfers, Stair training safety, Mobility recommendations Recommendations: Discharge recommendations/planning Therapy Specific: Role of physical therapy ASSESSMENT: Physical Therapy Diagnosis: The patient presents with a physical therapy diagnosis of: Impaired gait, Impaired mobility Signs and symptoms are consistent with: what is expected at this stage post-surgery Physical therapy examination reveals the following impairments: activity tolerance, strength, standing tolerance, range of motion These impairments contribute to the following activity limitations: functional mobility/transfers, gait Physical Therapy Assessment: Patient is 45 year old female s/p R TKA. Patient demonstrating safe transfers, ambulation with B axillary crutches at mod/ind level. Stair negotiation performed without physical assist. Patient limitedreturn of mobility in R knee due to pain with inability to tolerate resting position into extension.Patient safe to DC home with home health PT to progress mobility as tolerated and maximize return toindependent function. The patient's prior level of function was: independent Current status is: below prior level of function The patient's rehabilitation potential is: good Physical Therapy is medically necessary to: address these body structure/function impairments, activity limitations, and participation restrictions, establish and progress mobility/exercise and provide recommendations for staff and safe discharge planning, facilitate return to prior level of function,provide education in a home exercise program to address impairments in body functions and structuresand promote increased activity and participation Short-Term Goals: Time Frame: 5 days - 07/06/21 Goal: Patient with ascend/descend 4 steps with mod/ind and B axillary crutches. Status: Initiated Goal: Patient will ambulate 300 ft with B axillary crutches, step through pattern and R knee pain <2/10, mod/ind. Status: Initiated Goal: Patient will be I with HEP. Status: Initiated Goal: Patient will demonstrate R knee extension < -10 degrees from neutral with <2/10 R knee pain. Status: Initiated Long-Term Goals: Time Frame: NA PLAN: Frequency: Times per week, BID Times Per Week: 7 Intensity: 15-45 minutes Duration: Duration of hospitalization Interventions May Include: Gait training, Therapeutic exercise, Therapeutic activities, Neuromuscular re-education Patient/Family Education: Discharge planning, Patient education, Recommendations, Family/caregiver education Next Session to Include: Therex, gait training. Discharge Recommendations: Recommended Discharge Destination: Home with family support/supervision Therapy Specific Services: Physical therapy Equipment Dispensed: Mobility Equipment Mobility Equipment: Crutches Crutch Specifics: Axillary crutches Team Communication: Notified: Nurse, operations section manager, Physician When: Prior to therapy session, After therapy session By: [id number] communication Notification Comments: Mobility performance. Discharge recommendations. Pain response with L knee extension positioning. Gail Orr, PT 07/01/2021 16:45 Alejandrina Castillo - 07/01/2021 1416 EDT S. Patient states, My pain is 4/10. O. Patient ambulated in hallway and completed the stairs with PT. Pain was assessed after PT finished with exercises in room. Patient was crying because she was in such discomfort. Pain was reassessed for 7/10. 10 mg of oxycodone was given and ice was applied, pain reassessed 30 minutes later for 2/10. While giving 1400 scheduled medication patient asked for more oxycodone stating that her pain was a4/10. A. Patient seems to be more comfortable when ice was applied and medication was taken. P. Continue to monitor for pain and discomfort. Basilia Gillis OT - 07/01/2021 1234 EDT [facility] Occupational Therapy Single Visit Evaluation Note Date of Service: 07/01/2021 Diagnosis: Right TKR Date of Onset: 06/30/21 Referring Provider: Donnie Baig MD Reason for Referral: Evaluate and treat Precautions: Per TKR protocol Other Orthopedic Precautions: Total knee precautions SUBJECTIVE: Patient is currently having difficulty with: straightening the right knee Patient/caregiver states: It hurts when it's on the pillow Subjective Information Reported by: Patient Pain Comments: 4/10 when up and walking/standing, up to 10/10 with pillow under heel in bed Primary Pain Site Assessment Pain Location: Knee Pain Orientation : Lateral, Right, Posterior Medical/Surgical History: Current: has Internal nasal lesion; Enlarged uterus; History of DVT (deep vein thrombosis); IBS (irritable bowel syndrome); Iron deficiency; Morbid obesity (HCC-CMS) ([facility]); OA (osteoarthritis); Primary osteoarthritis of knees, bilateral; Right knee DJD; S/P laparoscopic sleeve gastrectomy; and Arthritis of right knee on their problem list. Past: has a past medical history of Bowel disease, DVT (deep venous thrombosis) ([facility]) ([facility]) (2004 from thoracic outlet syndrome), GERD (gastroesophageal reflux disease), Hypertension, and Thoracicoutlet syndrome. has a past surgical history that includes Carpal tunnel release (Bilateral, 2009); Gastric bypass surgery (2015); rib resection (2005); Foot surgery (Left, 2010); knee surgery (Right, 04/09/2019); knee surgery (Right, 2007); knee surgery (Left, 2008); and knee surgery (Bilateral, 1990). HPI: Support Person: Significant other Prior Level of Function: Basic Activities of [...] on main level with bedroom/bathroom Mobility Equipment: Cane Support Person: Significant other Lives With: Significant Other OBJECTIVE: Patient Profile: Patient is a 45 y.o. female admitted on 06/30/2021 secondary to Right knee DJD. The patient lives at [place] [id number] Body Functions and Performance Skills Cardiovascular/Respiratory Systems Function: Mental Functions: No problems noted . Sensory Functions: No problems noted . Neuromusculoskeletal and Movement Related Functions: No problems noted . Skin and Related Structure Functions: No problems noted . Mild drainage on bandage noted. Areas of Occupation and Performance Skills: Basic Activities of Daily Living: Feeding: Indep Grooming: Indep Bathing: set up only, standing at sink, sitting on toilet to reach feet Upper Body Dressing: Indep Lower Body Dressing: set up Toileting: Indep Toilet Transfer: modified Indep with use of crutches, grab bar, regular toilet, minimal increased effort. Pt feels she will do fine with set up at home Functional Mobility: modified indep with crutches Instrumental Activities of Daily Living: Not evaluated. Informed Consent: The patient consented to the occupational therapy evaluation. The patient agrees to and understands the occupational therapy treatment plan and goals. Interventions Completed Today: Time: 0076-4254 Total Treatment Time (minutes): 34 Timed Code Treatment Minutes: 20 Procedures: Self-care/home management Self-Care/Home Management 1: Instructed in sponge bathing technique, precautions for incision, lowerbody dressing technique and recommended AE. Instructed in self manual lymph drainage technique to help mobilize edema around knee, educated re: use of compression and donning/doffing tubigrip stockinette. Recommended dry run getting in and out of shower prior to this activity and recommended use of walk in shower vs tub initially. Additional information may be available in the medical record. Patient/Family Education: Activity/Work/Community: Activity modification Braces and Equipment: Adaptive equipment/durable medical equipment Medical Information/Signs and Symptoms: Activities of daily living compensatory strategies, Recoveryprocess Recommendations: Discharge recommendations/planning Safety: Post-operative precautions per protocol Therapy Specific: Role of occupational therapy ASSESSMENT: Occupational therapy evaluation reveals the following impairments: pain, range of motion Occupational therapy evaluation reveals the following impairments : knee pain, decreased ROM for normal gait These impairments are contributing to the following activity limitations and participation restrictions: functional mobility, self-care, independent living skills, driving 45 y.o. f s/p right TKR after many years of knee pain. Pt mobilizing safely and independently, but struggling to gain ROM in the knee. Pt return demonstrated good technique with self manual lymph drainage to help manage edema, pain and potentially faciliate movement at the joint. Pt able to complete basic self care and perform functional transfers independently. No further skilled OT needs at this time. Recommend continued Physical Therapy. PLAN: Discharge Recommendations: Recommended Discharge Destination: Home with family support/supervision Therapy Specific Services: Physical therapy Team Communication: Notified: Primary physical therapist When: After therapy session, During therapy session By: [id number] communication About: strategies to encourage knee extension Patient Status and Referrals: Discharge needs, Patient status BASILIA ROSE OT, 07/01/2021, 13:05 Lis Montalvo - 07/01/2021 0951 EDT Initial Case Management/Social Work Assessment and Discharge Plan/Readmission Risk Assessment REASON FOR ADMISSION: Right knee DJD Patient understands reason for admission: Yes PATIENT INFO VERIFIED: PCP, Contact Info, Address Type of housing (single family, condo, apartment, fdc, single room occupancy, [facility] funded hotel room, group [facility]) - Single Level, Single Family Who does the patient live with? SO Luis Does the patient have access to their own bedroom/bathroom/kitchen - or is it shared with others? Shared Name of housing complex (ex [place] [facility], [facility], etc)- n/a Housing Authority/Managing Organization - n/a Community Care Providers (case finisher, [facility] nurse, etc) name and contact information- n/a LIVING ARRANGEMENTS AND ACCESSIBILITY ISSUES: Living Arrangements: Spouse / significant other, Private residence Levels: 1 Stairs to enter: 4 or more Handicap access: Railings into home Bathroom located on bedroom level?: Yes What in home social supports are available to the patient? Spouse / significant other Is 24/7 care available? NA ADVANCED DIRECTIVES, POA &/or COLST IN PLACE: Healthcare Directive: No, patient does not have advance directive for healthcare treatment Information Provided on Healthcare Directives: No Information on Healthcare Directives Requested: No DIRECTIVES FOR FINANCES: Directive For Finances: No TRANSPORTATION: Transportation: Family Patient expects to be discharged to: Home CULTURAL, LATTER-DAY and/or LANGUAGE factors affecting health care/discharge planning: Spiritual/Cultural Requests: None Language/Literacy Needs Do you need us to provide any communication aids or devices?: No Insurance Information: Medical Insurance: Yes Type of insurance: Commercial insurance Commercial coverage: BCBS [place] Nutrition: DISCHARGE RISK ASSESSMENT: Total # selected above: Tentative plan to address the risk of re-hospitalization for those at HIGH MODERATE RISK: RAPT TOOL: Patient expects to be discharged to: Home SBIRT: FUNCTIONAL STATUS: Activities patient requires assistance: None Assistive Devices: Cane Walker type: Standard COMMUNITY RESOURCES/SUPPORTS: Primary Care Provider: Toyin Frias NP PCP Verified: Specialists: None Type of Home Health Services: None DME Provider: Pharmacy: [id number] - [address] [address] Home Health: Other: POST HOSPITAL TRANSITION PLAN: Home Seng confirms her PCP, demographics, and contacts as current. She does not have an AD and declines ablank copy today. She states her SO Luis would be her agent. Seng states she lives with her SO Luis in a 1 level home with 5 steps and a railing to enter. At baseline, she is fully independent with her ADL's with the occasional use of her cane. She does not own any further DME and PT states she will be ok with crutches. [facility] and she is aware CM will fax clinical to them and she may get billed if insurance does notcover. On dc, she is open to home health on dc and would then like to go to out pt PT at [facility]. She chooses [facility] for her home health agency. No further questions or concernsvoiced to at this time, SO Luis will transport her home. LIS NICHOLSON 07/01/2021 9:51 ssie Mcclain, PT - 06/30/2021 1651 EDT [facility] Contact Note Date of Service: 06/30/2021 Patient was seen for assess and treat today. She shows good potential to advance to home setting. Findings will be provided in am 07/01. She will use a whe walker for gait assist. ESSIE MCCLAIN, PT 06/30/2021 16:51 documented in this encounter H&P Notes Donnie Baig MD - 06/30/2021 0657 EDT The preoperative history and physical which was performed within 30 days of this procedure has been reviewed and the clinically appropriate elements of the physical examination havebeen repeated. There are no changes to the documented history and physical or if so such changes aredocumented below See History and Physical dated [facility] (in scans or media) DONNIE BAIG MD 06/30/2021 6:57 Donnie devine MD - 06/17/2021 1600 EDTPost-Procedure Diagnose(s): Effusion of left knee joint PROBLEM: Right knee pain SUBJECTIVE: Seng Muse is a 45 y.o. female who is here today to discuss right knee arthroplasty. Shehas been seen here for the past 3+ years. She originally presented for right knee pain . Seng had a right HTO in 2007 at [facility]. Eventually right knee became much more painful. She has had temporary relief with visco-supplementation in the past but injections have become less helpful. She didhave the hardware removed from her right knee. She has a severe valgus deformity of her right knee. She also has left knee pain but not as severe although the left has become more swollen again. The past medical, family and social history have been reviewed in the patient chart. Patient Active Problem List Diagnosis ??? Internal nasal lesion ??? Enlarged uterus ??? History of DVT (deep vein thrombosis) ??? IBS (irritable bowel syndrome) ??? Iron deficiency ??? Morbid obesity (HCC-CMS) (HCC) ??? OA (osteoarthritis) ??? Primary osteoarthritis of knees, bilateral ??? Right knee DJD ??? S/P laparoscopic sleeve gastrectomy Past Medical History: Diagnosis Date ??? Bowel disease Past Surgical History: Procedure Laterality Date ??? CARPAL TUNNEL RELEASE Bilateral 2009 ??? FOOT SURGERY Left 2010 plantar fasciitis ??? GASTRIC BYPASS SURGERY 2015 [place] ??? KNEE SURGERY Right 04/09/2019 hardware removal ??? KNEE SURGERY Right 2007 knee tibial osteotomy/ microfracture ??? KNEE SURGERY Left 2009 arthroscopy/ microfracture ??? KNEE SURGERY Bilateral 1990 arthroscopy-osteochondritis dessicians ??? RIB RESECTION 2006 partial rib removal Current Outpatient Medications on File Prior to Visit Medication Sig Dispense Refill ??? acetaminophen/diphenhydramine (TYLENOL PM ORAL) Take 1 Tab by mouth at bedtime. ??? amLODIPine (NORVASC) 5 mg tablet Take 5 mg by mouth daily. ??? ascorbic acid, vitamin C, (VITAMIN C) 500 mg tablet 1 tab(s) orally once a day ??? Calcium Carbonate 600 mg calcium (1,500 mg) tablet 2 tab(s) orally twice a day ??? celecoxib (CELEBREX) 200 mg capsule Take 200 mg by mouth 2 times daily. ??? cyanocobalamin (VITAMIN B-12) 500 mcg tablet Take 500 mcg by mouth daily. ??? cyclobenzaprine (FLEXERIL) 10 mg tablet Take [...] by mouth 4 times daily as needed. (Patient not taking:Reported on 06/17/2021) ??? methocarbamoL (ROBAXIN) 500 mg tablet Take 1 Tablet by mouth 3 times daily as needed for Muscle Spasms. 90 Tablet 0 ??? multivitamin capsule 1 cap(s) orally twice a day ??? omeprazole (PRILOSEC) 20 mg capsule ??? oxyCODONE-acetaminophen (PERCOCET) 5-325 mg per tablet Take 1 Tab by mouth 2 times daily. ??? OZEMPIC 1 mg/dose (4 mg/3 mL) pen injector INJECT 1MG SUBCUTANEOUSLY ONCE WEEKLY FOR DIABETES ??? OZEMPIC subcutaneous pen INJECT 0.25 MG SUBCUTANEOUSLY ONCE A WEEK FOR DIABETES (Patient not taking: Reported on 06/17/2021) No current facility-administered medications on file prior to visit. No Known Allergies ROS Family History Problem Relation Age of Onset ??? Cancer Mother ??? Heart Disease Father ??? Thyroid Disease Father ??? Diabetes Maternal Grandfather ??? Diabetes Paternal Grandfather Social History Occupational History ??? Not on file Tobacco Use ??? Smoking status: Never Smoker ??? Smokeless tobacco: Never Used Substance and Sexual Activity ??? Alcohol use: Yes ??? Drug use: Not on file Comment: 10 ??? Sexual activity: Not on file OBJECTIVE: BP 130/84 Pulse 94 Temp 36.7 ??C (98.1 ??F) SpO2 98% On physical exam, the patient is found to be a pleasant and cooperative female. In no acute distress. Psych: She is alert and oriented x 3 , mood and affect normal Constitutional: She is well-developed and in no significant distress. Eyes: Sclerae clear. Resp: Breathing is regular and nonlabored without audible wheezing. Skin: warm and dry Msk: Right knee has a severe valgus deformity. She has scars from her previous surgery. There is no erythema or ecchymosis. She does have full extension. She can flex beyond 100 degrees. She has valgusinstability. Neuro: Sensation intact light touch Vasc: Normal radial pulses, good capillary refill. DIAGNOSTICS: Radiographs of both knees were ordered and taken in the office today. These were independently reviewed by me. Long alignment films taken. Severe valgus deformity right knee consistent with physical exam. Evidence of prior surgery. Left knee also with some degenerative changes. LABS: Lab Results Component Value Date HGB 11.1 11/21/2020 SPHCT 32.9 (L) 11/21/2020 PLT 309 11/21/2020 RBC 3.66 (L) 11/21/2020 WBC1 5.0 11/21/2020 RDW 14.3 (H) 11/21/2020 MCH 30.3 11/21/2020 MCHC 33.7 11/21/2020 Lab Results Component Value Date GLU 92 04/25/2020 CA 9.2 11/21/2020 NA 137 04/25/2020 K 4.0 04/25/2020 CO2 28 04/25/2020 CL 100 04/25/2020 BUN 15 04/25/2020 CREATININE 0.7 04/25/2020 No results found for: ABO, LABRH, LABANTI Lab Results Component Value Date HGBA1C 5.0 09/28/2019 No results found for: CRP ASSESSMENT: 1. Osteoarthritis of right knee, unspecified osteoarthritis type XR LEG LENGTH EVALUATION (PRE AND POST OP) 2. Pre-op evaluation XR LEG LENGTH EVALUATION (PRE AND POST OP) PLAN: I have reviewed the medical records from the primary care provider who performed the history and physical. Significant findings and recommendations addressed at this visit and discussed with the patient. Patient and I discussed surgical treatment for their knee arthritis. I discussed the potential risksof this procedure including 1% chance of infection, possible deep venous thrombosis or pulmonary embolus, possibility of nerve injury, possibility of blood loss requiring transfusion, allergic reactions, as well as medical complications. I also reviewed specific complications and consequences relativeto knee arthroplasty including loosening, persistent pain, patella pain, fracture, late infection, need for revision surgery, and clicking. We discussed the potential need for prophylactic antibiotics after surgery for up to 2 years after joint replacement in patients who have normal immune system and potentially lifetime for patients withcompromised immune system. We talked about the recovery time. We talked about return to normal activities including work. Many patients do not like to kneel on their artifical knees. It may take two years to adjust to the artificial knee. I mentioned that artificial joints typically feels somewhat different than the patient's inupiat joint and may make unusual sounds including clicking. After reviewing patient's history and physical as well as their laboratory workup, plan is to proceed with joint arthroplasty. Informed consent obtained in the office today. We will have difficult primary equipment available including TS inserts and stems. Follow up post op With right knee xrays This note was prepared using voice recognition software and the EMR. There may be inadvertent errorsand omissions. Donnie Baig MD 06/21/2021 At patient's request, I also aspirated her left knee. Procedure: Large Joint Injection/Arthrocentesis on 06/17/2021 16:00 Details: 22 G needle, lateral approach Aspirate: 100 mL clear and yellow Outcome: tolerated well, no immediate complications Procedure, treatment alternatives, risks and benefits explained, specific risks discussed. Consent was given by the patient. Immediately prior to procedure a time out was called to verify the correct patient, procedure, equipment, forestry support specialist and site/side marked as required. Patient was prepped anddraped in the usual sterile fashion. documented in this encounter OR Notes OR Surgeon - Donnie Baig MD - 06/30/2021 1046 EDT TOTAL KNEE Operative Note Date: 06/30/21 10:46 [place] [facility] [place] Name: Seng Muse, : 1975, Diagnosis Right knee DJD Post-op Diagnosis * Primary osteoarthritis of right knee [M17.11] Procedures * ARTHROPLASTY, KNEE, TOTAL Surgeons * Donnie Baig MD - Primary * Star Roy DO - Assisting Procedure Summary Anesthesia: General ASA: II Estimated Blood Loss: 200 mL Tourniquet Time: 20 minutes Total IV Fluids: see anesthesia record LDAs: Peripheral IV 06/30/21 0723 Left;Posterior Hand (Active) Wound 06/30/21 Anterior;Right Knee Full thickness (Active) Implants Type Name Action Serial No. Total Joint Implant CEMENT RESTRICTOR - [id number] Implanted Total Joint Implant COMPONENT FEM RIGHT SIZE 6 CEMENTED TRIATHLON PS CO - [id number] Implanted Total Joint Implant KNEE STEM EXTENSION CEMENTED [id number] TRIATHLON [id number] - [id number] Implanted Plate Implant BASEPLATE SIZE 6 TRIATHLON TS CO - [id number] Implanted Patella KNEE PATELLAR COMPONENT ASYMMETRIC [id number] TRIATHLON [id number] - [id number] Implanted Ortho Implant CEMENT BONE HIGH VISCOSITY TOBRAMYCIN RADIOPAQUE SINGLE DOSE LOVE 40GM SIMPLEX [id number] Implanted Ortho Implant CEMENT BONE SIMPLEX P RADIOPAQUE FULL DOSE ST - [id number] Implanted Total Joint Implant KNEE TIBIAL INSERT FIXED SIZE 6 TS 13MM TRIATHLON [id number] - [id number] Implanted Staff: Water Gas Operator: Ainsley Olivarez RN Relief Water Gas Operator: Augustine Hanna RN Scrub Person: Erma Mclaughlin; Brett Randall Caving Guide: Laina Brumfield Indications: Seng Muse is an 45 y.o. female who is having surgery for Primary osteoarthritis of right knee [M17.11] Findings: 1. Patient received preoperative antibiotic's (Ancef 2 g IV) within 1 hour of surgical incision start time. 2. Surgical site was signed preoperatively. Timeout was done in the operating room verifying patient, side, site, operative procedure, and available equipment. 3. Venodyne's were used during the operative procedure. These will be used postoperatively. We will initiate chemical DVT prophylaxis postoperatively. 4. Large peritracheal osteophytes. Complete loss of cartilage lateral condyle. Deficient area lateral tibial plateau due to significant wear and cartilage loss. 5. Star Roy assisted throughout the operative procedure. Assistance was needed to provide adequate exposure and to assist with placement of hardware. Procedure Details: Patient was identified and brought into the operating room. We placed them supine on the operating table after they received a spinal anesthetic. We placed a tourniquet on the proximal right thigh. We prepped and draped the operative extremity in the usual sterile fashion. The patient received their preoperative antibiotics. We then performed our timeout procedure. I injected the area for skin incision with 1% lidocaine containing epinephrine. I made an anterior midline longitudinal incision. I used a medial parapatellar approach for the arthrotomy. Standard releases were performed. I subluxated the patella laterally. I removed the anterior portions of the medial and lateral menisci. We placed retractors around the proximal femur. Entry hole was made in the femur using a drill. I used a flexible intramedullary alignment tariq for the femur. We set the jig for a 6 degree valgus cut. Iresected 8 mm from the distal femur. I removed the ACL and PCL. We placed retractors around the proximal tibia and subluxated the tibia anteriorly. I used an extramedullary alignment tariq for the tibia. We used a 0?? cutting block. Proximal resection was based upon preoperative template. We fixed the guide to the tibia and used an oscillating saw to perform the resection. The proximal tibia was removed. I removed any additional osteophytes. I removed the remaining portions of the medial and lateral menisci. I then placed a spacer block to assess the extension gap ensuring that it would accommodate at least a 9 mm insert. The knee was tight in extension. I made an additional 2 mm cut. The extension gap would accommodate a 9. We checkedthe flexion gap. It was significantly looser. I then resected an additional 2 mm in the femur., we removed the block and the pins. We used the gap tension device. We referenced off the posterior condyles. Using the tensioning gap device, creating significant internal rotation of the femur. I elected to use the posterior referencing guide. I set up for 1 degree external rotation. We fixed the guide to the bone with pins. We could accommodate a size 5 or 6. I elected to take less bone posteriorly to tighten the flexion gap slightly. We used a 1.5 mm offset guide to place 2 new pins. I removed the guide and placed a size 6 4-in-1 cutting block on the distal femur. I completed the distal femoral resection. We then removed posterior osteophytes. I placed the box cutting guide for the posterior stabilized implant and removed the central portion of bone. I then injected the posterior capsule with Exparel. We subluxated the tibia anteriorly again. I measured the proximal tibia with a trial tray. It would accommodate a size 6 which was consistent with the preoperative template. We fixed the trial tray in place. We drilled for the universal baseplate and for the stem. I then used our keel punch for the size 6 implant. Because of the significant bone erosion and cartilage loss on the lateral side the bonewas hard and we drilled multiple holes for cement fixation. We proceeded to place trial implants. The knee had full extension with excellent flexion. The knee felt stable both at full extension and in flexion. The patella tracked well. I measured the height of the patella. I performed a patellar resection with the oscillating saw. We measured for an A35 patella. We drilled peg holes for a patella button. We trialed the patella buttonand the height was restored. The patella continued to track normally with the trial button in place. I elevate the leg to exsanguinate the limb. We inflated the tourniquet to 325 mm. I removed the trial implants. We mixed cement on the back table using vacuum technique. We then proceeded to cement theimplants using standard technique. We held the knee in full extension and applied a patellar clamp until the cement hardened. I checked to be sure we removed any excess cement. We used a trial 11 mm tray until the cement had hardened. I then checked for stability. The knee did still feel slightly loose. We placed a trial 13 mm tray and this improved stability. We then placed our permanent size 6, 13 mm TS tray. We then let the tourniquet down. There was no major bleeding noted. We irrigated the knee thoroughlyand closed the wound in a layered fashion using a strata fix suture for the retinacular closure and Polysorb for subcutaneous tissues followed by Biosyn and Dermabond. The patient tolerated surgical procedure well. We sent them in stable condition to the recovery room. Sponge and instrument counts were correct. The patient tolerated procedure well. We sent them in stable condition to recovery room. Sponge and instrument count correct. Postop plan: Routine total knee. Complications: None; patient tolerated the procedure well. Condition: stable Specimens:None DONNIE BAIG MD 06/30/21 10:46 reprocedure Instructions - Shelly Penaloza RN - 06/29/2021 1302 EDT .Seng Muse has been instructed as follows regarding medication administration for the day of the scheduled procedure. Date of Surgery: 06/30/21 Instructions for Taking Medications Day of Surgery Medication Sig Last Dose Hold DOS Take DOS acetaminophen/diphenhydramine (TYLENOL PM ORAL) Take 1 Tab by mouth at bedtime. amLODIPine (NORVASC) 5 mg tablet Take 5 mg by mouth daily. take ascorbic acid, vitamin C, (VITAMIN C) 500 mg tablet 1 tab(s) orally once a day hold Calcium Carbonate 600 mg calcium (1,500 mg) tablet 2 tab(s) orally twice a day hold celecoxib (CELEBREX) 200 mg capsule Take 200 mg by mouth 2 times daily. cyanocobalamin (VITAMIN B-12) 500 mcg tablet Take by mouth four times a week. hold cyclobenzaprine (FLEXERIL) 10 mg tablet Take 10 mg by mouth at bedtime. diclofenac sodium 1 % gel Apply 2 g topically if needed. DULoxetine (CYMBALTA) 60 mg capsule take ergocalciferol (DRISDOL; VITAMIN D2) 1,250 mcg (50,000 unit) capsule 1 cap(s) orally once a week ferrous sulfate 325 mg (65 mg iron) tablet Take 325 mg by mouth daily. hold gabapentin (NEURONTIN) 300 mg capsule TAKE 1 TO 3 CAPSULES ORALLY 3 TIMES A DAY FOR CHRONIC PAIN loperamide (IMODIUM A-D) 2 mg tablet Take by mouth 4 times daily as needed. Patient not taking: Reported on 06/17/2021 methocarbamoL (ROBAXIN) 500 mg tablet Take 1 Tablet by mouth 3 times daily as needed for Muscle Spasms. multivitamin capsule 1 cap(s) orally twice a day hold omeprazole (PRILOSEC) 20 mg capsule take oxyCODONE-acetaminophen (PERCOCET) 5-325 mg per tablet Take 1 Tab by mouth 2 times daily. OZEMPIC 1 mg/dose (4 mg/3 mL) pen injector INJECT 1MG SUBCUTANEOUSLY ONCE WEEKLY FOR DIABETES Took today 06/29 as scheduled OZEMPIC subcutaneous pen INJECT 0.25 MG SUBCUTANEOUSLY ONCE A WEEK FOR DIABETES Patient not taking: Reported on 06/17/2021 Patient normally takes celebrex, robaxin, and gabapentin in the morning also. Explained to patient that Dr. Baig did order those medications to be given in preop before surgery. Gave patient the option to either take those medications at home with a sip of water and alert preop nurse of time she took them or to wait and take them in preop when given. Patient knows to alert preop nurse of which option she chose. Pt verbalized understanding. documented in this encounter Miscellaneous Notes Plan of Care - Lis Nicholson - 07/02/2021 1415 EDT discharge note: Seng is now discharged to home with her crutches and home health through [facility]. She is aware and in agreement with this discharge plan. New dc order and AVS faxed to [facility]. Her So will transport her home today. lan of Care - Daniela Lucio RN - 07/02/2021 0446 EDT Problem: High Fall Risk: Goal: Patient will Remain Free of Falls due to Altered Mobility Outcome: Met This Shift Problem: PAIN Goal: Patient's pain/discomfort is manageable/tolerable Outcome: Not Met This Shift lan of Chantel Dockery RN - 07/01/2021 1540 EDT At approx 1400 this afternoon patient stated she felt her pain was too much to handle at home. Prn oxy and robaxin given as well as scheduled APAP. Pt lost IV this morning and opted not to have anotherone placed since she was going to go home. Explained to patient that if she decides to have another IV placed she'll have IV toradol and morphine available to her. Pt declined IV at this time and would like to see if she can get by with PO regimen. Plan for patient to stay tonight for pain control and work with PT again in the morning. Please see MAR and flowsheet for additional information. WCTM. lan of Chantel Dockery RN - 07/01/2021 1156 EDT Assumed care of patient at 0700. Pt was alert in bed at that time, pain well controlled with ice andPRN pain meds. Pt OOB to chair and bathroom, SBA with walker. Plan for d/c this afternoon after xray. Family to transport. Please see MAR and flowsheet for more information. WCTM. Problem: High Fall Risk: Goal: Patient Will Remain Free from Fall-Related Injury Outcome: Met This Shift Problem: PAIN Goal: Patient's pain/discomfort is manageable/tolerable Outcome: Met This Shift Problem: Daily Care Plan Goals Goal: Care Plan Documentation Outcome: Met This Shift lan of Lis Campos - 07/01/2021 1149 EDT CM Discharge Note: Seng is discharged to home today with crutches from [facility] per PT request. All clinical and script will be faxed to [facility] and she is aware they will bill her insurance and she may have a co-pay. She has declined home health at this time through [facility] and instead would like to go to outpt PT which rehab feels is appropriate. She has chosen [facility] in [place] and has made a referral. Cm spoke with [facility] PT outpt and they can not fit her in for the next few weeks, is aware and willorder HH in the interim. Cm spoke with pt and she is aware and in agreement with this. CM will fax all clinical to [facility], which is the pt preferred agency. DARLEEN was not made aware that pt was having increased pain and pt did not feel comfortable going home yesterday afternoon. She did stay the night per nursing notes due to this. Will follow up with pt and [facility] to update them of when dc will occur. lowsheet Note - Gail Orr PT - 07/01/2021 1017 EDT Patient is 45 yo female s/p R TKA. Performed mobility for knee alignment series with PT this morningat mod/ind level with 2 rails. Pt to ascend with LLE, descend with RLE. Thanks! lan of Care - Sanjeev Morley RN - 06/30/2021 2320 EDT Problem: Daily Care Plan Goals Goal: Care Plan Documentation Outcome: Ongoing Flowsheets (Taken 06/30/2021 2317) Area of Focus: Safety Note: Patient is A&Ox4 and will ring appropriately for assistance. Able to take medications PO with thin liquid. Pain rated between 2-4 and is well controlled with hospital medication. Pain is related to R side knee surgery. Patient able to ambulate with a walker and a standby assist and is agreeable to using the walker. lan of Ashok - Chantel Holm RN - 06/30/2021 1438 EDT Assumed care of patient at approx. 1350. Pt arrives via hospital bed from PACU. at the bedside. Pt. S/p right total knee replacement. Right knee wrapped in sahil wrap with ice. +CSMTs. Pt OOB to bathroom with walker, voided x1. Tolerated ambulation very well. Pain well controlled with PO APAP and robaxin. 2nd RN skin check performed with Cassidy PANG, skin intact other than right knee surgical incision. Pt tolerating PO, menu provided for meal. Please see MAR and flowsheet for more information. Problem: High Fall Risk: Goal: Patient Will Remain Free from Fall-Related Injury Outcome: Ongoing Problem: PAIN Goal: Patient's pain/discomfort is manageable/tolerable Outcome: Ongoing Problem: Daily Care Plan Goals Goal: Care Plan Documentation Outcome: Ongoing documented in this encounter Plan of Treatment Upcoming Encounters Date Type Specialty Care Team Description 01/08/2022 Office Visit Orthopedic Surgery Derrell Baig MD [address] [place] [address] (Wo rk) Scheduled Referrals Name Type Priority Associated Order Schedule Diagnoses PROVIDER FOLLOW-UP Outpatient Routine/Next Ordered: INSTRUCTIONS Referral Available 07/01/2021 AMB CONS/FOLLOW UP Outpatient Routine/Next Arthritis of Expected: PHYSICAL THERAPY - Referral Available right knee 2 OUTSIDE OF NETWORK (Approxim ate), Expires: 07/01/2022 AMB CONS/FOLLOW UP Outpatient Urgent Arthritis of Expected: HOME HEALTH SERVICES Referral right knee 022 (Approximate), Expires: 07/01/2022 documented as of this encounter Procedures Procedure Name Priority Date/Time Associated Diagnosis Comme nts ECG REPORT - SCANNED 07/06/2021 10:06 EDT COMPLETE BLOOD COUNT Routine 07/02/2021 6:46 Resu lts for this EDT procedure are i n the results section. XR LEG LENGTH Routine 07/01/2021 12:31 Results fo r this EVALUATION (PRE AND EDT procedur e are in POST OP) the results section. COMPLETE BLOOD COUNT Routine 07/01/2021 6:36 Resu lts for this EDT procedure are i n the results section. BUN Routine 07/01/2021 6:36 Results for this EDT procedure are i n the results section. GLUCOSE, SERUM Routine 07/01/2021 6:36 Results fo r this EDT procedure are i n the results section. CREATININE Routine 07/01/2021 6:36 Results for this EDT procedure are i n the results section. ELECTROLYTES Routine 07/01/2021 6:36 Results for this EDT procedure are i n the results section. PATIENT RE-TYPE Routine 06/30/2021 7:50 Results f or this EDT procedure are i n the results section. TYPE AND SCREEN Routine 06/30/2021 7:46 Results f or this EDT procedure are i n the results section. ARTHROPLASTY, KNEE, 06/30/2021 7:10 Primary osteoarthr itis TOTAL EDT of right knee Special Needs AD TS inserts and tibial yosi m documented in this encounter Results (ABNORMAL) COMPLETE BLOOD COUNT (07/02/2021 6:46 EDT) Pathologist Sig nature WBC 6.23 4.00 - 12.40 K/cmm [facility] RBC 2.78 (L) 3.86 - 5.04 M/cmm [facility] Hemoglobin 8.6 (L) 11.6 - 15.2 gm/dL [facility] HCT 25.9 (L) 34.9 - 44.4 % [facility] MCV 93 81 - 98 fl [facility] MCH 30.9 26.7 - 33.3 pg [facility] MCHC 33.2 32.1 - 35.9 gm/dL [facility] RDW-CV 12.6 <14.7 % [facility] RDW-SD 43.7 <50.4 fl [facility] PLT 204 141 - 377 K/cmm [facility] MPV 9.4 (L) 9.5 - 12.7 fl [facility] Specimen Blood - Venous blood (substance) Performing Organization Address City/State/ZIP Code Phon e Number [facility] [address] [place] [address] XR LEG LENGTH EVALUATION (PRE AND POST OP) (07/01/2021 12:31 EDT) Anatomical Region Laterality Modality Lower Extremities Computed Radiography Specimen Narrative [facility] - 07/01/2021 13:23 EDT INDICATION: post op right TKR. COMPARISON: Leg alignment series 2. TECHNIQUE: Standing AP view of both lowe r extremities with superimposed measuring stick and a lateral radiograph of the right lower extremity were obtained. FINDINGS: A fully constrained cemented 3 component right knee arthroplasty has been placed since the previous exam. The right knee alignment is slightly valgus. This has improved since the previous examination. N o other retained radiopaque metallic thierry gical foreign body is seen. Procedure Note Reynaldo Bautista MD - 2 INDICATION: post op right TKR. COMPARISON: Leg alignment series 2. TECHNIQUE: Standing AP view of both lowe r extremities with superimposed measuring stick and a lateral radiograph of the right lower extremity were obtained. FINDINGS: A fully constrained cemented 3 component right knee arthroplasty has been placed since the previous exam. The right knee alignment is slightly valgus. This has improved since the previous examination. No other retained radiopaque metallic surgical fo reign body is seen. Performing Organization Address City/State/ZIP Code Phon e Number [facility] (ABNORMAL) COMPLETE BLOOD COUNT (07/01/2021 6:36 EDT) Pathologist Sig nature WBC 7.82 4.00 - 12.40 K/cmm [facility] RBC 2.84 (L) 3.86 - 5.04 M/cmm [facility] Hemoglobin 8.7 (L) 11.6 - 15.2 gm/dL [facility] HCT 25.9 (L) 34.9 - 44.4 % [facility] MCV 91 81 - 98 fl [facility] MCH 30.6 26.7 - 33.3 pg [facility] MCHC 33.6 32.1 - 35.9 gm/dL [facility] RDW-CV 12.5 <14.7 % [facility] RDW-SD 41.7 <50.4 fl [facility] PLT 215 141 - 377 K/cmm [facility] MPV 10.0 9.5 - 12.7 fl [facility] Specimen Blood - Venous blood (substance) Performing Organization Address City/[facility]/ZIP Code Phon e Number [facility] [address] [place] [address] GLUCOSE, SERUM (07/01/2021 6:36 EDT) Pathologist Sig nature Glucose 73 70 - 100 mg/dL [facility] Specimen Blood - Venous blood (substance) Performing Organization Address [facility] Phon e Number [facility] [address] [place] [address] ELECTROLYTES (07/01/2021 6:36 EDT) Pathologist Sig nature Sodium 137 136 - 145 mmol/L [facility] Potassium 3.8 3.5 - 5.0 mmol/L [facility] Chloride 104 96 - 110 mmol/L [facility] CO2 Total 27 22 - 32 mmol/L [facility] Anion Gap 6 5 - 14 [facility] Specimen Blood - Venous blood (substance) Performing Organization Address [facility] Phon e Number [facility] [address] [place] [address] CREATININE (07/01/2021 6:36 EDT) Pathologist Sig nature Creatinine 0.57 0.52 - 1.04 mg/dL [facility] eGFR 113 >60 mL/min/1.73m2 [facility] Specimen Blood - Venous blood (substance) Performing Organization Address [facility] Phon e Number [facility] [address] [place] [address] BUN (07/01/2021 6:36 EDT) Pathologist Sig nature BUN 16 10 - 26 mg/dL [facility] Specimen Blood - Venous blood (substance) Performing Organization Address City/[facility]/[place] [facility] [place] Number [facility] [address] [place] [address] PATIENT RE-TYPE (06/30/2021 7:50 EDT) Pathologist Sig nature ABO A [facility] Rh Factor Positive [facility] Specimen Blood - Venous blood (substance) Performing Organization Address City/[facility]/[place] [facility] [place] Phon e Number [facility] [address] [place] [address] TYPE AND SCREEN (06/30/2021 7:46 EDT) ABO A [facility] Rh Factor Positive [facility] Antibody Screen Negative [facility] Specimen Expires: 07/30/2021 @ 23:59 [facility] Specimen Blood - Venous blood (substance) Performing Organization Address City/State/ZIP Code Phon e Number [facility] [address] [place] [address] documented in this encounter Visit Diagnoses Diagnosis Right knee DJD - Primary Osteoarthrosis, unspecified whether gene ralized or localized, lower leg Arthritis of right knee Unspecified arthropathy, lower leg S/P total knee arthroplasty, right documented in this encounter Admitting Diagnoses Diagnosis Right knee DJD Osteoarthrosis, unspecified whether gene ralized or localized, lower leg Arthritis of right knee Unspecified arthropathy, lower leg documented in this encounter Administered Medications Inactive Administered Medications - up to 3 most recent administrations Medication Order MAR Action Action Date Dose Rate Site acetaminophen (TYLENOL) suppository 975 mg 975 mg, rectal, EVERY 6 HOURS, First dose on Tue at 1345, Until Discontinued, Routine acetaminophen (TYLENOL) tablet 975 mg Given 06/30/2021 7:32 EDT 975 mg 975 mg, oral, PRE-OP ONCE, 1 dose, On Tue06/30/21 at 0700, Routine, Preprocedure acetaminophen (TYLENOL) tablet 975 mg Given 07/02/2021 13:29 EDT 975 mg 975 mg (rounded from 1,000 mg), oral, EVERY 6 HOURS, First dose on Tue06/30/21 at 1345, Until Discontinued, Routine Given 07/02/2021 8:14 EDT 975 mg Given 07/02/2021 1:37 EDT 975 mg amLODIPine (NORVASC) tablet 5 mg Given 07/02/2021 8:14 EDT 5 mg 5 mg, oral, DAILY, First dose on Tue07/01/21 at 0900, Until Discontinued, Routine Given 07/01/2021 8:33 EDT 5 mg ascorbic acid (vitamin C) (VITAMIN C) tablet 500 Given 07/02/2021 8:14 EDT 500 mg mg 500 mg, oral, DAILY WITH BREAKFAST, 10 doses, First dose on Tue07/01/21 at 0800, Last dose on Tue07/10/21 at 0800, Routine Given 07/01/2021 8:33 EDT 500 mg aspirin tablet 325 mg Given 07/02/2021 8:14 EDT 325 mg 325 mg, oral, 2 TIMES DAILY, First dose on Tue06/30/21 at 2100, Until Discontinued, Routine Given 07/01/2021 21:34 EDT 325 mg Given 07/01/2021 8:34 EDT 325 mg calcium carbonate (OS-NGOC) 500 mg (1,250 mg) Given 8:14 EDT 1 Tablet tablet 1 Tablet 1 Tablet, oral, 2 TIMES DAILY, First dose on Tue06/30/21 at 2100, Until Discontinued Given 07/01/2021 21:35 EDT 1 Tablet Given 07/01/2021 8:34 EDT 1 Tablet ceFAZolin in dextrose 5 % (ANCEF) IVPB Given 06/30/2021 11:39 ED T 2,000 mg IV DUPLEX 2,000 mg 2,000 mg, intravenous, Administer over 30 Minutes, NOW X1, 1 dose, On Tue06/30/21 at 1145, Type of Therapy: Prophylaxis, Suspected Indication (Select all that apply): Surgical prophylaxis, Routine, Recovery (only) ceFAZolin in dextrose 5 % (ANCEF) IVPB DUPLEX Given 0:06 EDT 2,000 mg 2,000 mg 2,000 mg, intravenous, Administer over 30 Minutes, EVERY 8 HOURS, 2 doses, First dose on Tue06/30/21 at 1600, Last dose on Tue07/01/21 at 0000, Type of Therapy: Prophylaxis, Suspected Indication (Select all that apply): Surgical prophylaxis, Routine Given 06/30/2021 16:20 EDT 2,000 mg celecoxib (CELEBREX) capsule 200 mg Given 06/30/2021 7:26 EDT 200 mg 200 mg, oral, PRE-OP ONCE, 1 dose, On Tue06/30/21 at 0700, Routine, Preprocedure chlorhexidine gluconate 2 % cloth 1 Each Given 06/30/2021 7:27 EDT 1 Each 1 Each, topical, PRE-OP MULTIPLE, 2 doses, Starting on Tue06/30/21 at 0634, Until Tue06/30/21 at 1137, preop TJR, Routine, Preprocedure cholecalciferol (Vitamin D3) tablet 2,000 Given 2021 16:51 EDT 2,000 Units Units 2,000 Units, oral, DAILY WITH DINNER, 10 doses, First dose on Tue06/30/21 at 1700, Last dose on Tue07/09/21 at 1700, Routine Given 06/30/2021 16:20 EDT 2,000 Units cyclobenzaprine (FLEXERIL) tablet 10 mg Given 07/01/2021 21:33 EDT 10 mg 10 mg, oral, AT BEDTIME, First dose on Tue06/30/21 at 2100, Until Discontinued, Routine Given 06/30/2021 21:52 EDT 10 mg dexAMETHasone (DECADRON) injection 4 mg Given 06/30/2021 12:51 EDT 4 mg IV 4 mg, intravenous, ONCE PRN, 1 dose, Starting on Tue06/30/21 at 1115, Until Tue06/30/21 at 1251, Nausea, Routine, Recovery (only) diphenhydrAMINE (BENADRYL) capsule 25 mg 25 mg, oral, EVERY 6 HOURS PRN, Starting on Tue06/30/21 at 1322, Until Tue07/02/21 at 1636, Itching, Routine diphenhydrAMINE (BENADRYL) elixir 25 mg 25 mg, oral, EVERY 6 HOURS PRN, Starting on Tue06/30/21 at 1322, Until Tue07/02/21 at 1636, Itching, Routine diphenhydrAMINE (BENADRYL) injection 25 mg 25 mg, intravenous, EVERY 6 HOURS PRN, S tarting on Tue06/30/21 at 1322, Until Tue07/02/21 at 1636, Itching, Routine diphenhydrAMINE (BENADRYL) injection 6.2 5 mg Given 06/30/2021 11:43 EDT 6.25 mg IV 6.25 mg, intravenous, ONCE PRN, 1 dose, Starting on Tue06/30/21 at 1115, Until Tue06/30/21 at 1143, Nausea/Vomiting, Routine, Recovery (only) docusate sodium (COLACE) capsule 200 mg Given 07/02/2021 8:14 EDT 200 mg 200 mg, oral, 2 TIMES DAILY, First dose on Tue06/30/21 at 2100, Until Discontinued, Routine Given 07/01/2021 21:35 EDT 200 mg Given 07/01/2021 8:34 EDT 200 mg DULoxetine (CYMBALTA) delayed release capsule 60 Given 07/02/2021 8:14 EDT 60 mg mg 60 mg, oral, DAILY, First dose on Tue07/01/21 at 0900, Until Discontinued, Routine Given 07/01/2021 8:33 EDT 60 mg ferrous sulfate EC tablet 324 mg Given 07/02/2021 8:14 EDT 324 mg 324 mg, oral, DAILY WITH BREAKFAST, First dose on Tue07/01/21 at 0800, Until Discontinued Given 07/01/2021 8:33 EDT 324 mg gabapentin (NEURONTIN) capsule 300 mg Given 07/02/2021 13:29 EDT 300 mg 300 mg, oral, 3 TIMES DAILY, First dose on Tue06/30/21 at 1400, Until Discontinued, Routine Given 07/02/2021 8:14 EDT 300 mg Given 07/01/2021 21:36 EDT 300 mg gabapentin (NEURONTIN) capsule 600 mg Given 06/30/2021 7:25 EDT 600 mg 600 mg, oral, PRE-OP ONCE, 1 dose, On Tue06/30/21 at 0700, Routine, Preprocedure ketOROLAC (TORADOL) injection 15 mg Given 07/02/2021 13:29 EDT 15 mg IV 15 mg, intravenous, EVERY 6 HOURS, 20 doses, First dose on Tue06/30/21 at 1345, Last dose on Tue07/05/21 at 0745, Routine Given 07/02/2021 8:13 EDT 15 mg Given 07/02/2021 1:36 EDT 15 mg lactated ringers (LR) infusion New Bag 06/30/2021 7:24 EDT 25 mL/hr at 25 mL/hr, intravenous, CONTINUOUS, Starting on Tue06/30/21 at 0700, Until Ofe 07/02/21 at 1636, Routine, Preprocedure lactated ringers (LR) infusion Rate Change 06/30/2021 11:39 EDT 100 mL/hr IV at 100 mL/hr, 1,000 mL, intravenous, PACU CONTINUOUS, Starting on Tue06/30/21 at 1145, Until Tue06/30/21 at 1343, Routine, Recovery (only) methocarbamoL (ROBAXIN) tablet 500 mg Given 06/30/2021 7:33 EDT 500 mg 500 mg, oral, PRE-OP ONCE, 1 dose, On Tue06/30/21 at 0700, Routine, Preprocedure methocarbamoL (ROBAXIN) tablet 500 mg Given 07/02/2021 12:13 EDT 500 mg 500 mg, oral, 3 TIMES DAILY PRN, Starting on Tue06/30/21 at 1322, Until Ofe 07/02/21 at 1636, spasms, Routine Given 07/02/2021 5:42 EDT 500 mg Given 07/01/2021 13:58 EDT 500 mg morphine PF injection 1 mg Given 07/01/2021 18:46 EDT 1 mg 1 mg, intravenous, EVERY 2 HOURS PRN, Starting on Tue06/30/21 at 1322, Until Ofe 07/02/21 at 1636, Pain, breakthrough pain, Routine multivitamin-iron fumarate-FA (THERA-M PLUS) Given 16:51 EDT 1 Tablet 9 mg iron-400 mcg tablet 1 Tablet 1 Tablet, oral, DAILY WITH DINNER, First dose on Tue06/30/21 at 1700, Until Discontinued, Routine Given 06/30/2021 16:20 EDT 1 Tablet ondansetron (PF) (ZOFRAN) injection 4 mg 4 mg, intravenous, EVERY 6 HOURS PRN, St arting on Tue06/30/21 at 1322, Until Ofe 07/02/21 at 1636, Nausea, Vomiting, Routine ondansetron (ZOFRAN-ODT) disintegrating tablet 4 Given 07/02/2021 12:14 EDT 4 mg mg 4 mg, oral, EVERY 6 HOURS PRN, Starting on Tue06/30/21 at 1322, Until Ofe 07/02/21 at 1636, Nausea, Routine Given 07/01/2021 18:02 EDT 4 mg oxyCODONE (ROXICODONE) immediate release tablet Given 2021 5:44 EDT 10 mg 10 mg 10 mg, oral, EVERY 4 HOURS PRN, Starting on Tue06/30/21 at 1322, Until Tue07/02/21 at 1636, Pain, Severe Pain (7-10), Routine Given 07/01/2021 22:38 EDT 10 mg Given 07/01/2021 14:29 EDT 10 mg oxyCODONE (ROXICODONE) immediate release tablet 5 Given 07/02/2021 10:23 EDT 5 mg mg 5 mg, oral, EVERY 4 HOURS PRN, Starting on Tue06/30/21 at 1322, Until Tue07/02/21 at 1636, Pain, Moderate Pain (4-6), Routine Given 07/01/2021 16:51 EDT 5 mg Given 07/01/2021 2:53 EDT 5 mg pantoprazole (PROTONIX) tablet 40 mg Given 07/02/2021 6:02 EDT 40 mg 40 mg, oral, DAILY BEFORE BREAKFAST, First dose on Tue07/01/21 at 0700, Until Discontinued Given 07/01/2021 6:38 EDT 40 mg polyethylene glycol 3350 (MIRALAX) packe t 17 g Given 07/02/2021 8:13 EDT 17 g 17 g, oral, DAILY, First dose on Tue07/01/21 at 0900, Until Discontinued, Routine Given 07/01/2021 8:32 EDT 17 g senna (SENOKOT) tablet 2 Tablet Given 07/02/2021 8:14 EDT 2 Tablets 2 Tablet, oral, 2 TIMES DAILY, First dose on Tue06/30/21 at 2100, Until Discontinued, Routine Given 07/01/2021 21:33 EDT 2 Tablets Given 07/01/2021 8:33 EDT 2 Tablets zinc sulfate (ZINCATE) capsule 220 mg Given 07/02/2021 12:13 EDT 220 mg 220 mg, oral, DAILY WITH LUNCH, 10 doses, First dose on Tue06/30/21 at 1345, Last dose on Tue07/09/21 at 1200, Routine Given 07/01/2021 13:30 EDT 220 mg Given 06/30/2021 14:07 EDT 220 mg documented in this encounter Discontinued Medications Medication Sig Discontinue Reason Start Date End Date oxyCODONE-acetaminophen Take 1 Tab by Stop Taking at 03/16/2019 0 07/02/2021 (PERCOCET) 5-325 mg per mouth 2 times Discharge tablet daily. documented as of this encounter Active and Recently Administered Medications Times are shown in EDT. Scheduled Medication Order 06/30/2021 07/01/2021 07/02/2021 acetaminophen (TYLENOL) suppository 975 mg(Linked Grou p 1) 1406 (See Alternative - Provider: Chantel Holm RN)1949 (Not Given - Provider: Sanjeev Morley RN - Reason: Other - Comment: PO acetaminophen admnistered)2009 (See Alternative - Provider: Sanjeev Morley RN) 208 (See Alternative - Provider: Sanjeev cueva RN)0833 (See Alternative - Provider: Alejandrina Nguyen)1229 (MAR Hold - Provider: Automatic Transfer Provider Hn - Reason: Patient off unit)1241 (MAR Unhold - Provider: Automatic Transfer Provider Hn) 0137 (See Alternative - Provider: Daniela Lucio RN)0814 (See Alternative - Provider: Janeth Benson RN)1329 (See Alternative - Provider: Janeth Benson RN) 975 mg, rectal, EVERY 6 HOURS, First dos e on Tue06/30/21 at 1345, Until Discontinued, Routine 1330 (See Alternative - Prov ider: Alejandrina Nguyen)2133 (See Alternative - Provider: Daniela Lucio RN) acetaminophen (TYLENOL) tablet 975 mg (COMPLETED) 0732 (Given - Provider: Bonnie Avendano, RN) 975 mg, oral, PRE-OP ONCE, 1 dose, On 06/30/21 at 0700, Routine, Preprocedure acetaminophen (TYLENOL) tablet 975 mg(Linked Group 1) 1406 (Given - Provider: Chantel Holm RN)1949 (See Alternative - Provider: Sanjeev Morley, SUSI)2009 (Given - Provider: Sanjeev Morley RN - Comment: scheduled administration) 208 (Given - Provider: Sanjeev Morley RN)0833 (Given - Provider: Alejandrina Nguyen)1229 (MAR Hold - Provider: Automatic Transfer Provider Hn - Reason: Patient off unit)1241 (MAR Unhold - Provider: Automatic Transfer Provider Hn) 0137 (Given - Provider: Daniela Lucio RN)0814 (Given - Provider: Janeth Benson, SUSI)1329 (Given - Provider: Janeth Benson, SUSI) 975 mg (rounded from 1,000 mg), oral, EV JACINTO 6 HOURS, First dose on Tue06/30/21 at 1345, Until Discontinued, Routine 1330 (Given - Pro vider: Alejandrina Nguyen)2133 (Given - Provider: Daniela Lucio RN - Comment: pt request) amLODIPine (NORVASC) tablet 5 mg 0833 (G iven - Provider: Alejandrina Nguyen)1229 (MAY Hold - Provider: Automatic Transfer Provider Hn - Reason: Patient off unit)1241 (MAY Unhold - Provider: Automatic Transfer Provider Hn) 0814 (Given - Provider: Janeth Benson RN) 5 mg, oral, DAILY, First dose on 06/13 at 0900, Until Discontinued, Routine ascorbic acid (vitamin C) (VITAMIN C) tablet 500 mg 0833 (Given - Provider: Alejandrina Nguyen)1229 (MAY Hold - Provider: Automatic Transfer Provider Hn - Reason: Patient off unit)1241 (MAY Unhold - Provider: Automatic Transfer Provider Hn) 0814 (Given - Provider: Janeth Benson RN ) 500 mg, oral, DAILY WITH BREAKFAST, 10 d oses, First dose on Tue07/01/21 at 0800, Last dose on Tue07/10/21 at 0800, Routine aspirin tablet 325 mg 2103 (Given - Provider: Sanjeev Morley RN) 0834 (Given - Provider: Alejandrina Nguyen)1229 (MAY Hold - Provider: Automatic Transfer Provider Hn - Reason: Patient off unit)1241 (MAY Unhold - Provider: Automatic Transfer Provider Hn)2134 (Given - Provider: Daniela Lucio RN) 0814 (Given - Provider: Janeth Benson RN) 325 mg, oral, 2 TIMES DAILY, First dose on Tue06/30/21 at 2100, Until Discontinued, Routine calcium carbonate (OS-NGOC) 500 mg (1,250 mg) tablet 1 Tablet 2103 (Given - Provider: Sanjeev Morley RN) 0834 (Given - Provider: Alejandrina Nguyen)12 29 (MAY Hold - Provider: Automatic Transfer Provider Hn - Reason: Patient off unit)1241 (MAY Unhold - Provider: Automatic Transfer Provider Hn)2135 (Given - Provider: Daniela Lucio, RN) 0814 (Given - Provider: Janeth Benson, SUSI ) 1 Tablet, oral, 2 TIMES DAILY, First dos e on Tue06/30/21 at 2100, Until Discontinued ceFAZolin in dextrose 5 % (ANCEF) IVPB DUPLEX 2 g (COM PLETED) 0725 (Hold - Provider: Bonnie Avendano, SUSI - Reason: Other - Comment: anesthesia to give in or)0805 (Given - Provider: Guido Hendricks MD) 2 g, intravenous, Administer over 30 Min utes, PRE-OP ONCE, 1 dose, On Tue06/30/21 at 0700, Type of Therapy: Prophylaxis, Suspected Indication (Select all that apply): Surgical prophylaxis, Routine, Preprocedure ceFAZolin in dextrose 5 % (ANCEF) IVPB DUPLEX 2,000 mg (COMPLETED) 1139 (Given - Provider: Olayinka Walters, SUSI) 2,000 mg, intravenous, Administer over 3 0 Minutes, NOW X1, 1 dose, On Tue06/30/21 at 1145, Type of Therapy: Prophylaxis, Suspected Indication (Select all that apply): Surgical prophylaxis, Routine, Recovery (only) ceFAZolin in dextrose 5 % (ANCEF) IVPB DUPLEX 2,000 mg (COMPLETED) 1620 (Given - Provider: Chantel Holm RN) 0006 (Given - Provider: Sanjeev Morley RN) 2,000 mg, intravenous, Administer over 3 0 Minutes, EVERY 8 HOURS, 2 doses, First dose on Tue06/30/21 at 1600, Last dose on Tue07/01/21 at 0000, Type of Therapy: Prophylaxis, Suspected Indication (Select all that apply): Surgical prophylaxis, Routine celecoxib (CELEBREX) capsule 200 mg (COMPLETED) 07 ( Given - Provider: Bonnie Avendano, SUSI) 200 mg, oral, PRE-OP ONCE, 1 dose, On 06/30/21 at 0700, Routine, Preprocedure cholecalciferol (Vitamin D3) tablet 2,000 Units 1620 ( Given - Provider: Chantel Holm RN) 1229 (MAY Hold - Provider: Automatic Tra nsfer Provider Hn - Reason: Patient off unit)1241 (MAY Unhold - Provider: Automatic Transfer Provider Hn)165 (Given - Provider: Chantel Holm, RN) 2,000 Units, oral, DAILY WITH DINNER, 10 doses, First dose on Tue06/30/21 at 1700, Last dose on Tue07/09/21 at 1700, Routine cyclobenzaprine (FLEXERIL) tablet 10 mg 215 (Given - Provider: Sanjeev Morley, RN) 1229 ([facility] Hold - Provider: Automatic Tra nsfer Provider Hn - Reason: Patient off unit)124 ([facility] Unhold - Provider: Automatic Transfer Provider Hn)213 (Given - Provider: Daniela Lucio, SUSI) 10 mg, oral, AT BEDTIME, First dose on 06/30/21 at 2100, Until Discontinued, Routine docusate sodium (COLACE) capsule 200 mg 2102 (Given - Provider: Sanjeev Morley, SUSI) 0834 (Given - Provider: Alejandrina Nguyen)12 (MAY Hold - Provider: Automatic Transfer Provider Hn - Reason: Patient off unit)124 ([facility] Unhold - Provider: Automatic Transfer Provider Hn)213 (Given - Provider: Daniela Lucio, SUSI) 0814 (Given - Provider: Janeth Benson, SUSI) 200 mg, oral, 2 TIMES DAILY, First dose on Tue06/30/21 at 2100, Until Discontinued, Routine DULoxetine (CYMBALTA) delayed release capsule 60 mg 0833 (Given - Provider: Alejandrina Nguyen)1229 ([facility] Hold - Provider: Automatic Transfer Provider Hn - Reason: Patient off unit)1241 ([facility] Unhold - Provider: Automatic Transfer Provider Hn) 0814 (Given - Provider: Janeth Benson, RN ) 60 mg, oral, DAILY, First dose on Tue at 0900, Until Discontinued, Routine ferrous sulfate EC tablet 324 mg 0833 (G iven - Provider: Alejandrina Nguyen)1229 (MAY Hold - Provider: Automatic Transfer Provider Hn - Reason: Patient off unit)1241 ([facility] Unhold - Provider: Automatic Transfer Provider Hn) 0814 (Given - Provider: Janeth Benson, SUSI) 324 mg, oral, DAILY WITH BREAKFAST, Firs t dose on Tue07/01/21 at 0800, Until Discontinued gabapentin (NEURONTIN) capsule 300 mg 140 (Given - Pr ovider: Chantel Holm RN)2017 (Given - Provider: Sanjeev Morley RN) 0834 (Given - Provider: Alejandrina Nguyen)1229 (MAY Hold - Provider: Automatic Transfer Provider Hn - Reason: Patient off unit)1241 (MAY Unhold - Provider: Automatic Transfer Provider Hn)1330 (Given - Provider: Alejandrina Nguyen) 0814 (Given - Provider: Janeth Benson, SUSI)1329 (Given - Provider: Janeth Benson RN) 300 mg, oral, 3 TIMES DAILY, First dose on Tue06/30/21 at 1400, Until Discontinued, Routine 2136 (Given - Provider: Daniela Lucio RN) gabapentin (NEURONTIN) capsule 600 mg (COMPLETED) 724 (Given - Provider: Bonnie Avendano, RN) 600 mg, oral, PRE-OP ONCE, 1 dose, On 06/30/21 at 0700, Routine, Preprocedure ketOROLAC (TORADOL) injection 15 mg 1406 (Given - Prov ider: Chantel Holm RN)2010 (Given - Provider: Sanjeev Morley RN) 0209 (Given - Provider: Sanjeev Morley RN)0739 (Not Given - Provider: Chantel Holm RN - Reason: Loss of IV access)1229 (MAY Hold - Provider: Automatic Transfer Provider Hn - Reason: Patient off unit) 0136 (Given - Provider: Daniela Lucio RN )0813 (Given - Provider: Janeth Benson, SUSI)1329 (Given - Provider: Janeth Benson RN) 15 mg, intravenous, EVERY 6 HOURS, 20 do ses, First dose on Tue06/30/21 at 1345, Last dose on Tue07/05/21 at 0745, Routine 1241 (May hold - Provider: Automatic Transfer Provider Hn)1359 (Not Given - Provider: Chantel Holm RN - Reason: Loss of IV access)1845 (Given - Provider: Chantel Holm RN) methocarbamoL (ROBAXIN) tablet 500 mg (COMPLETED) 732 (Given - Provider: Bonnie Avendano, RN) 500 mg, oral, PRE-OP ONCE, 1 dose, On 06/30/21 at 0700, Routine, Preprocedure multivitamin-iron fumarate-FA (THERA-M PLUS) 9 mg iron -400 mcg tablet 1 Tablet 1620 (Given - Provider: Chantel Holm, RN) 1229 ([facility] Hold - Provider: Automatic Transfer Provider Hn - Reason: Patient off unit)1241 ([facility] Unhold - Provider: Automatic Transfer Provider Hn)1651 (Given - Provider: Chantel Holm, RN) 1 Tablet, oral, DAILY WITH DINNER, First dose on Tue06/30/21 at 1700, Until Discontinued, Routine pantoprazole (PROTONIX) tablet 40 mg 063 8 (Given - Provider: Sanjeev Morley RN)1229 ([facility] Hold - Provider: Automatic Transfer Provider Hn - Reason: Patient off unit)1241 ([facility] Unhold - Provider: Automatic Transfer Provider Hn) 0602 (Given - Provider: Daniela Lucio, SUSI) 40 mg, oral, DAILY BEFORE BREAKFAST, Fir st dose on Tue07/01/21 at 0700, Until Discontinued polyethylene glycol 3350 (MIRALAX) packet 17 g 0832 (Given - Provider: Alejandrina Nguyen)1229 ([facility] - Provider: Automatic Transfer Provider Hn - Reason: Patient off unit)1241 ([facility] Unhold - Provider: Automatic Transfer Provider Hn) 0813 (Given - Provider: Janeth Benson, SUSI) 17 g, oral, DAILY, First dose on 06/13 at 0900, Until Discontinued, Routine senna (SENOKOT) tablet 2 Tablet 2103 (Given - Provider: Sanjeev Morley RN) 0833 (Given - Provider: Alejandrina Nguyen)1229 ([facility] - Provider: Automatic Transfer Provider Hn - Reason: Patient off unit)1241 ([facility] Unhold - Provider: Automatic Transfer Provider Hn)2133 (Given - Provider: Daniela Lucio, SUSI) 0814 (Given - Provider: Janeth Benson, SUSI) 2 Tablet, oral, 2 TIMES DAILY, First dos e on Tue06/30/21 at 2100, Until Discontinued, Routine zinc sulfate (ZINCATE) capsule 220 mg 1407 (Given - Provider : Chantel Holm, SUSI) 1229 ([facility] - Provider: Automatic Transfer Provider Hn - Reason: Patient off unit)1241 ([facility] Unhold - Provider: Automatic Transfer Provider Hn)1330 (Given - Provider: Alejandrina Nguyen) 1213 (Given - Provider: Janeth Benson, SUSI ) 220 mg, oral, DAILY WITH LUNCH, 10 doses , First dose on Tue06/30/21 at 1345, Last dose on Tue07/09/21 at 1200, Routine Continuous Medication Order 06/30/2021 07/01/2021 07/02/2021 lactated ringers (LR) infusion 0724 (New Bag - Provide r: Bonnie Avendano, RN) at 25 mL/hr, intravenous, CONTINUOUS, St arting on Tue06/30/21 at 0700, Until Tue07/02/21 at 1636, Routine, Preprocedure lactated ringers (LR) infusion 1408 (Continued Infusio n - Provider: Chantel Holm, RN)1841 (IV Stopped - Provider: Chantel Holm, RN) at 75 mL/hr, intravenous, CONTINUOUS, St arting on Tue06/30/21 at 1345, Until Tue07/02/21 at 1636, Routine lactated ringers (LR) infusion (CANCELED) 1139 (Rate C hange - Provider: Olayinka Walters RN) at 100 mL/hr, 1,000 mL, intravenous, PAC U CONTINUOUS, Starting on Tue06/30/21 at 1145, Until Tue06/30/21 at 1343, Routine, Recovery (only) PRN Medication Order 06/30/2021 07/01/2021 07/02/2021 bisacodyL (DULCOLAX) suppository 10 mg 1 229 (MAY Hold - Provider: Automatic Transfer Provider Hn - Reason: Patient off unit)1241 (MAY Unhold - Provider: Automatic Transfer Provider Hn) 10 mg, rectal, DAILY PRN, Starting on 06/30/21 at 1322, Until Tue07/02/21 at 1636, Constipation, Routine bupivacaine liposome (PF) (EXPAREL) 1.3 % (13.3 mg/mL) infiltration (CANCELED) 1045 (Given - Provider: Donnie Baig MD - Comment: Diluted with 40 mL of saline to make up a total of 60 mL of administered mixture) PRN, Starting on Tue06/30/21 at 1045, Un til Tue06/30/21 at 1113, Routine, Intraprocedure chlorhexidine gluconate 2 % cloth 1 Each (CANCELED) 07 27 (Given - Provider: Bonnie Avendano, RN) 1 Each, topical, PRE-OP MULTIPLE, 2 dose s, Starting on Tue06/30/21 at 0634, Until Tue06/30/21 at 1137, preop TJR, Routine, Preprocedure dexAMETHasone (DECADRON) injection 4 mg (COMPLETED) 12 51 (Given - Provider: Olayinka Walters, RN) 4 mg, intravenous, ONCE PRN, 1 dose, Sta rting on Tue06/30/21 at 1115, Until e 06/30/21 at 2359, Nausea, Routine, Recovery (only) diphenhydrAMINE (BENADRYL) capsule 25 mg(Linked Group 2) 1229 ([facility] Hold - Provider: Automatic Transfer Provider Hn - Reason: Patient off unit)1241 ([facility] Unhold - Provider: Automatic Transfer Provider Hn) 25 mg, oral, EVERY 6 HOURS PRN, Starting on e 06/30/21 at 1322, Until Ofe 07/02/21 at 1636, Itching, Routine diphenhydrAMINE (BENADRYL) elixir 25 mg(Linked Group 2) 1229 ([facility] Hold - Provider: Automatic Transfer Provider Hn - Reason: Patient off unit)1241 ([facility] Unhold - Provider: Automatic Transfer Provider Hn) 25 mg, oral, EVERY 6 HOURS PRN, Starting on Tue06/30/21 at 1322, Until Ofe 07/02/21 at 1636, Itching, Routine diphenhydrAMINE (BENADRYL) injection 25 mg(Linked Group 2) 1229 ([facility] Hold - Provider: Automatic Transfer Provider Hn - Reason: Patient off unit)1241 ([facility] Unhold - Provider: Automatic Transfer Provider Hn) 25 mg, intravenous, EVERY 6 HOURS PRN, S tarting on e 06/30/21 at 1322, Until Ofe 07/02/21 at 1636, Itching, Routine diphenhydrAMINE (BENADRYL) injection 6.25 mg (COMPLETE D) 1143 (Given - Provider: Olayinka Walters, SUIS) 6.25 mg, intravenous, ONCE PRN, 1 dose, Starting on Tue06/30/21 at 1115, Until e 06/30/21 at 2359, Nausea/Vomiting, Routine, Recovery (only) lidocaine-EPINEPHrine 1 %-1:100,000 injection (CANCELE D) 1045 (Given - Provider: Donnie Baig MD - Comment: right knee) PRN, Starting on Tue06/30/21 at 1045, Un til Tue06/30/21 at 1113, Routine, Intraprocedure methocarbamoL (ROBAXIN) tablet 500 mg 1406 (Given - Provider : Chantel Holm, RN) 0934 (Given - Provider: Chantel Holm, RN)1229 (MAY Hold - Provider: Automatic Transfer Provider Hn - Reason: Patient off unit)1241 (MAY Unhold - Provider: Automatic Transfer Provider Hn)1358 (Given - Provider: Chantel Holm, RN) 0542 (Given - Provider: Daniela Lucio, RN)1213 (Given - Provider: Janeth Benson, RN) 500 mg, oral, 3 TIMES DAILY PRN, Startin g on Tue06/30/21 at 1322, Until Ofe 07/02/21 at 1636, spasms, Routine morphine PF injection 1 mg 1229 (MAY Hol d - Provider: Automatic Transfer Provider Hn - Reason: Patient off unit)1241 (MAY Unhold - Provider: Automatic Transfer Provider Hn)1846 (Given - Provider: Chantel Holm, RN) 1 mg, intravenous, EVERY 2 HOURS PRN, St arting on Tue06/30/21 at 1322, Until Ofe 07/02/21 at 1636, Pain, breakthrough pain, Routine ondansetron (PF) (ZOFRAN) injection 4 mg(Linked Group 3) 1229 (MAY Hold - Provider: Automatic Transfer Provider Hn - Reason: Patient off unit)1241 (MAY Unhold - Provider: Automatic Transfer Provider Hn)1802 (See Alternative - Provider: Chantel Holm, RN) 1214 (See Alternative - Provider: Janeth Benson, RN) 4 mg, intravenous, EVERY 6 HOURS PRN, St arting on Tue06/30/21 at 1322, Until Ofe 07/02/21 at 1636, Nausea, Vomiting, Routine ondansetron (ZOFRAN-ODT) disintegrating tablet 4 mg(Linked G roup 3) 1229 (MAY Hold - Provider: Automatic Transfer Provider Hn - Reason: Patient off unit)1241 (MAY Unhold - Provider: Automatic Transfer Provider Hn)1802 (Given - Provider: Chantel Holm RN) 1214 (Given - Provider: Janeth Benson, RN ) 4 mg, oral, EVERY 6 HOURS PRN, Starting on Tue06/30/21 at 1322, Until Ofe 07/02/21 at 1636, Nausea, Routine oxyCODONE (ROXICODONE) immediate release tablet 10 mg( Linked Group 4) 1619 (Given - Provider: Chantel Holm RN)1844 (See Alternative - Provider: Chantel Holm RN) 0253 (See Alternative - Provider: Sanjeev cueva RN)0647 (Given - Provider: Sanjeev Morley RN)1035 (Given - Provider: Alejandrina Nguyen)1229 (MAY Hold - Provider: Automatic Transfer Provider Hn - Reason: Patient off unit) 0544 (Given - Provider: Daniela Lucio, RN)1023 (See Alternative - Provider: Janeth Benson, SUSI) 10 mg, oral, EVERY 4 HOURS PRN, Starting on Tue06/30/21 at 1322, Until Ofe 07/02/21 at 1636, Pain, Severe Pain (7-10), Routine 124 1 (MAY Unhold - Provider: Automatic Transfer Provider Hn)1429 (Given - Provider: Chantel Holm RN)1651 (See Alternative - Provider: Chantel Holm RN)2238 (Given - Provider: Daniela Lucio, SUSI) oxyCODONE (ROXICODONE) immediate release tablet 5 mg(L inked Group 4) 1619 (See Alternative - Provider: Chantel Holm RN)1844 (Given - Provider: Chantel Holm RN) 0253 (Given - Provider: Sanjeev Morley RN )0647 (See Alternative - Provider: Sanjeev Morley RN)1035 (See Alternative - Provider: Alejandrina Nguyen)1229 (MAY Hold - Provider: Automatic Transfer Provider Hn - Reason: Patient off unit) 0544 (See Alternative - Provider: Daniela Lucio RN)1023 (Given - Provider: Janeth Benson, SUSI) 5 mg, oral, EVERY 4 HOURS PRN, Starting on Tue06/30/21 at 1322, Until Ofe 07/02/21 at 1636, Pain, Moderate Pain (4-6), Routine 12 41 (MAY Unhold - Provider: Automatic Transfer Provider Hn)1429 (See Alternative - Provider: Chantel Holm, RN)1651 (Given - Provider: Chantel Holm, RN)2238 (See Alternative - Provider: Daniela Lucio RN) sodium chloride 0.9 % (flush) flush 5 mL 1229 (MAY Hold - Provider: Automatic Transfer Provider Hn - Reason: Patient off unit)1241 (MAY Unhold - Provider: Automatic Transfer Provider Hn) 5 mL, intravenous, PRN, Starting on Tue06/30/21 at 1322, Until Tue07/02/21 at 1636, Line Care, Routine Linked Groups Order Group 1: acetaminophen (TYLENOL) tablet 975 mgJump to med 975 mg (rounded from 1,000 mg), oral, EV JACINTO 6 HOURS, First dose on Tue06/30/21 at 1345, Until Discontinued, Routine Or acetaminophen (TYLENOL) suppository 975 mgJump to med 975 mg, rectal, EVERY 6 HOURS, First dos e on Tue06/30/21 at 1345, Until Discontinued, Routine Group 2: diphenhydrAMINE (BENADRYL) elixir 25 mgJump to med 25 mg, oral, EVERY 6 HOURS PRN, Starting on Tue06/30/21 at 1322, Until Tue07/02/21 at 1636, Itching, Routine Or diphenhydrAMINE (BENADRYL) injection 25 mgJump to med 25 mg, intravenous, EVERY 6 HOURS PRN, S tarting on Tue06/30/21 at 1322, Until Tue07/02/21 at 1636, Itching, Routine Or diphenhydrAMINE (BENADRYL) capsule 25 mgJump to med 25 mg, oral, EVERY 6 HOURS PRN, Starting on Tue06/30/21 at 1322, Until Tue07/02/21 at 1636, Itching, Routine Group 3: ondansetron (PF) (ZOFRAN) injection 4 mgJump to med 4 mg, intravenous, EVERY 6 HOURS PRN, St arting on Tue06/30/21 at 1322, Until Tue07/02/21 at 1636, Nausea, Vomiting, Routine Or ondansetron (ZOFRAN-ODT) disintegrating tablet 4 mgJump to med 4 mg, oral, EVERY 6 HOURS PRN, Starting on Tue06/30/21 at 1322, Until Ofe 07/02/21 at 1636, Nausea, Routine Group 4: oxyCODONE (ROXICODONE) immediate release tablet 5 mgJump to med 5 mg, oral, EVERY 4 HOURS PRN, Starting on Tue06/30/21 at 1322, Until Ofe 07/02/21 at 1636, Pain, Moderate Pain (4-6), Routine Or oxyCODONE (ROXICODONE) immediate release tablet 10 mgJump to med 10 mg, oral, EVERY 4 HOURS PRN, Starting on Tue06/30/21 at 1322, Until Ofe 07/02/21 at 1636, Pain, Severe Pain (7-10), Routine documented in this encounter Orders Medications Ordered That Might Not Have Count Last Ord ered Date First Ordered Date Been Administered acetaminophen (TYLENOL) suppository 975 mg 06/30 bisacodyL (DULCOLAX) suppository 10 mg 2 bupivacaine liposome (PF) (EXPAREL) 1.3 % 2021 (13.3 mg/mL) infiltration ceFAZolin in dextrose 5 % (ANCEF) IVPB 2 DUPLEX 2 g chlorhexidine gluconate 0.05 % in water 07/01/19 (IRRISEPT) irrigation 450 mL diphenhydrAMINE (BENADRYL) capsule 25 mg 022 diphenhydrAMINE (BENADRYL) elixir 25 mg 07/01/19 diphenhydrAMINE (BENADRYL) injection 25 mg 06/30 fentaNYL citrate (PF) injection 25 mcg 2 glycopyrrolate (ROBINUL) injection 0.2 mg 2021 HYDROmorphone (PF) (DILAUDID) 0.5 mg/0.5 022 mL syringe 0.5 mg lactated ringers (LR) infusion 06/30/2021 lactated ringers BOLUS 500 mL 06/30/2021 lidocaine (PF) 10 mg/mL (1 %) injection 2 1 2021 mg lidocaine-EPINEPHrine 1 %-1:100,000 1 06/30/2021 injection ondansetron (PF) (ZOFRAN) injection 4 mg 1 oxyCODONE (ROXICODONE) immediate release 1 tablet 5-10 mg sodium chloride 0.9 % (flush) flush 5 mL 1 Procedures Count Last Ordered Date First Ordered Date ECG REPORT - SCANNED 1 07/06/2021 Diet Count Last Ordered Date First Ordered Date DISCHARGE DIET 1 07/01/2021 Nursing Count Last Ordered Date First Ordered Date ACTIVITY INSTRUCTIONS 1 07/01/2021 BATHING INSTRUCTIONS 1 07/01/2021 WOUND CARE INSTRUCTIONS 1 07/01/2021 VTE PHARMACOLOGIC PROPHYLAXIS CURRENTLY 1 07/01/19 22 ORDERED OR ON ALTERNATIVE THER OT Count Last Ordered Date First Ordered Date OT EVALUATION AND TREAT 1 06/30/2021 Admission Count Last Ordered Date First Ordered Date OUTPATIENT WITH OBSERVATION SERVICES 1 07/01/2021 (INITIATE OBSERVATION STATUS) OUTPATIENT WITHOUT OBSERVATION SERVICES 1 07/01/19 (EXTENDED STAY) Discharge Count Last Ordered Date First Ordered Date DISCHARGE PATIENT 2 07/02/2021 07/01/2021 Legal Count Last Ordered Date First Ordered Date MISCELLANEOUS DISCHARGE INSTRUCTIONS 3 07/01/2021 Equipment Count Last Ordered Date First Ordered Date CRUTCHES 2 07/01/2021 WALKER 1 07/01/2021 documented in this encounter Care Teams Billing Clinician Relationship Specialty Start Date End Date Toyin Frias NP PCP - General 05/07/[address] [place] [phone] documented as of this encounter
--- OUTSIDE RECORDS SUMMARY | 2021-10-09 00:07 | XMS_ITS | Encounter Summary ---
:1975 Author Organization [facility] Address [address] [place] [address] Care Team Providers Name Role Phone Soraya Lovett MD Primary Care Provider Reason for Visit Reason Onset Date Comments Surgery Scheduling 03/27/2021 Encounter Details Date Type Department Care Team Description 03/27/2021 Orders Only [facility] - Reggie Baig [place] [facility] [place] [facility] [place] Dx[place] Sport Medicine [address] [facility] [address] [place] [address] [place] [address] [phone] (Wo rk) Social History Tobacco Use Types Packs/Day Years Used Date Never Smoker Smokeless Tobacco: Never Used Alcohol Use Standard Drinks/Week Comments Yes 0 (1 standard drink = 0.6 oz pure alcoho l) Sex Assigned at Date Recorded Not on file COVID-19 Exposure Response Date Recorded In the last month, have you been in contact with No / Unsure 03/18/2021 15:40 EST someone who was confirmed or suspected to have Coronavirus / COVID-19? documented as of this encounter Functional Status Functional Status Response Date of Assessment Because of a physical, mental, or emotional condition, No 04/12/2019 does this person have difficulty doing errands alone such as visiting a doctor's office or shopping? Cognitive Status Response Date of Assessment Because of a physical, mental, or emotional condition, No 04/12/2019 does this person have serious difficulty concentrating, remembering, or making decisions? documented as of this encounter Progress Notes Patti Amin - 03/27/2021 0758 EST DOS: 06/30/21 SURGEON: NAEL Please place lab, EKG, and COVID test orders for upcoming right TKR. Pt [place] COVID test done on06[place]27/21 [place] [facility] [place]. documented in this encounter Plan of Treatment Upcoming Encounters Date Type Specialty Care Team Description 01/08/2022 Office Visit Orthopedic Surgery Derrell Baig MD [address] [address] (Wo rk) Scheduled Orders Name Type Priority Associated Diagnoses Order S chedule EKG 12-LEAD ECG Routine Pre-op testing Expected: (Approximate), Expires: 2021 documented as of this encounter Visit Diagnoses Diagnosis Pre-op testing - Primary Preoperative examination, unspecified documented in this encounter Care Teams Training Development Specialist Relationship Specialty Start Date End Date Soraya Lovett MD PCP - General 12/12/13 05/06/21 [address] [place], [place] [address] documented as of this encounter
--- OUTSIDE RECORDS SUMMARY | 2021-10-09 00:07 | XMS_ITS | Encounter Summary ---
:1975 Author Organization [facility] Address [address] [place] [address] Care Team Providers Name Role Phone Toyin Frias OFFICE AUTOMATION TECHNICIAN Primary Care Provider Encounter Details Date Type Department Care Team Description 06/11/2021 Results Only [facility] Toyin Frias , MARIUSZ Laboratory Services - Main [address], [place] [address] [facility] [id number] [place] [address] [phone] Social History Tobacco Use Types Packs/Day Years [...] making decisions? documented as of this encounter Plan of Treatment Upcoming Encounters Date Type Specialty Care Team Description 01/08/2022 Office Visit Orthopedic Surgery Derrell aBig MD [address] [place] [id number] (Wo rk) documented as of this encounter Procedures Procedure Name Priority Date/Time Associated Comments Diagnosis COMPREHENSIVE Routine 06/11/2021 6:29 Results for this METABOLIC PANEL (CMP) EDT proced ure are in the results section. documented in this encounter Results (ABNORMAL) COMPREHENSIVE METABOLIC PANEL (CMP) (06/11/2021 6:29 EDT) Glucose 103.00 (H) 70.00 - 100.00 [facility] mg/dL Bun 19.00 7.00 - 20.00 [facility] mg/dL Creatinine 0.60 (L) 0.70 - 1.50 [facility] mg/dL Estimated GFR >60 [facility] Comment: Chronic renal impairment is defined as GFR <60 Multiply result by 1.210 for patients eGFR calculated using the IDMS-traceable MDRD study Sodium 139.00 137.00 - [facility] 145.00 mmol/L Potassium 4.00 3.50 - 5.10 [facility] mmol/L Chloride 103.00 98.00 - 107.00 [facility] mmol/L Carbon Dioxide 28.00 22.00 - 30.00 [facility] mmol/L Calcium 9.50 8.50 - 10.50 [facility] mg/dL Anion Gap 8 7 - 17 mmol/L [facility] Total Protein 7.30 6.30 - 8.20 [facility] g/dL Albumin 4.50 3.50 - 5.00 [facility] g/dL Total Bilirubin 0.30 0.20 - 1.30 [facility] mg/dL AST/SGOT 21.00 15.00 - 46.00 [facility] U/L ALT/SGPT 17.00 0.00 - 35.00 [facility] U/L ALK 60.00 38.00 - 126.00 [facility] U/L Specimen Performing Organization Address City/State/ZIP Code Phon e Number [facility] [address] [place] [address] documented in this encounter Visit Diagnoses Not on filedocumented in this encounter Care Teams Photographer Still Relationship Specialty Start Date End Date Toyin Frias NP PCP - General 05/07/21 [address] [place] [address] documented as of this encounter
--- OUTSIDE RECORDS SUMMARY | 2021-10-09 00:07 | XMS_ITS | Encounter Summary ---
:1975 Author Organization [facility] Address [address] [place] [address] Care Team Providers Name Role Phone Toyin Frias NP Primary Care Provider Reason for Visit Auth/Cert Specialty Diagnoses / Procedures Referred By Contact Refer red To Contact Diagnoses Primary osteoarthritis of right knee Primary osteoarthritis of right knee [M17.11] Procedures AR TOTAL KNEE ARTHROPLASTY ARTHROPLASTY, KNEE, TOTAL Referral ID Status Reason Start Date Expiration Date Visits Requ ested Visits Authorized [id number] 1 1 Encounter Details Date Type Department Care Team Description 06/30/2021 Surgery [facility] - Donnie Baig, ARTHROPLASTY, KNEE, [facility] Operating Room TOTAL [[id number] (CPT??)] [address] [place] [address] [address] [phone] [address] [place] [address] (Wo rk) Surgery Details Date/Time Status Location OR Service Patient Case Class Case Tr auma Class Type Case? 06/30/21 0730 Posted [facility] OR [facility] Orthopedics Extended H - Stay Elective Panel 1 Procedure LRB Anes Op Region Wound Class Commen ts ARTHROPLASTY, KNEE, TOTAL Right General Knee Class I/ C lean Surgeon Surgeon Role Service Panel Star Roy DO Assisting Orthopedics 1 Donnie Baig MD Primary Orthopedics 1 Special Needs AD TS inserts and tibial stem Social History Tobacco Use Types Packs/Day Years [...] Sign Reading Time Taken Comments Blood Pressure 152/97 06/30/2021 0655 EDT Pulse - - Temperature 36.8 ??C (98.2 ??F) 06/30/2021 0655 EDT Respiratory Rate 13 06/30/2021 0655 EDT Oxygen Saturation 100% 06/30/2021 0655 EDT Inhaled Oxygen Concentration - - Weight [...] she had a high tibial osteotomy at [facility]. She says ever since the surgery [...] improved from preoperatively. Condition: Stable Follow up: [facility] Orthopedics and Sports Medicine in 4 week(s) [...] 1 Tablet by mouth 56 Tablet 0 2 07/16/2021 2 times daily for 28 days. [...] Code Departure Means Destination Home or Self Shelter documented in this encounter Progress Notes Gail Orr, PT - 07/02/2021 1436 EDT [facility] [place] [facility] Discontinue/Discharge Note Date of Service: [...] Recommendations: Discharge recommendations/planning Team Communication Notified: Nurse, door manager, Physician When: After therapy session By: [id number] communication, Other About: Discharge recommendations. Mobility performance. [...] Equipment: Crutches Crutch Specifics: Axillary crutches Gail Orr, KATHRYN 07/02/2021 17:58 Janeth Pitt RN - 07/02/2021 1436 EDT Nursing [...] - Orthopaedics to continue to monitor Daniela Rivera RN - 07/02/2021 0447 EDT Pt is [...] Safety maintained. Call wells within reach. Gail Holt, PT - 07/01/2021 1610 EDT [facility] [place] [facility] Initial Evaluation Note Date of [...] ??? Iron deficiency ??? Morbid obesity (HCC-CMS) ([facility]) ??? OA (osteoarthritis) ??? Primary osteoarthritis of knees, bilateral ??? Right knee DJD ??? S/P laparoscopic sleeve gastrectomy ??? Arthritis of right knee Past: Past Medical History: Diagnosis Date ??? Bowel disease ??? DVT (deep venous thrombosis) ([facility]) ([facility]) 2004 from thoracic outlet syndrome ??? GERD (gastroesophageal reflux disease) ??? Hypertension ??? Thoracic outlet syndrome had rib resection and resolved this issue per patient Past Surgical History: Procedure Laterality Date ??? CARPAL TUNNEL RELEASE Bilateral 2009 ??? FOOT SURGERY Left 2010 plantar fasciitis ??? GASTRIC BYPASS SURGERY 2015 [facility] ??? KNEE SURGERY Right [...] Right knee DJD The patient lives at [place] [address] Arousal, Attention, and Cognition: Orientation: Alert Oriented [...] plan and goals. Interventions Completed Today: Time: Total Treatment Time (minutes): 41 Timed Code Treatment Minutes: 25 Therapy Session: A manual arts therapy teacher was present for the physical therapy session [...] Specifics: Axillary crutches Team Communication: Notified: Nurse, door manager, Physician When: Prior to therapy session, After therapy session By: [id number] communication Notification Comments: Mobility performance. Discharge recommendations. [...] Gillis OT - 07/01/2021 1234 EDT [facility] [place] [facility] Single Visit Evaluation Note Date [...] of Bowel disease, DVT (deep venous thrombosis) ([facility]) ([facility]) (2005 from thoracic outlet syndrome), GERD [...] Right knee DJD. The patient lives at [place] [address] Body Functions and Performance Skills Cardiovascular/Respiratory Systems [...] plan and goals. Interventions Completed Today: Time: 8686-3916 Total Treatment Time (minutes): 34 Timed Code [...] After therapy session, During therapy session By: [id number] communication About: strategies to encourage knee extension Patient Status and Referrals: Discharge needs, Patient status BASILIA ROSE OT, 07/01/2021, 13:05 Lis Montalvo - 07/01/2021 0951 EDT Initial Case Management/Social Work Assessment and Discharge Plan/Readmission Risk Assessment REASON FOR ADMISSION: Right knee DJD Patient understands reason for admission: Yes PATIENT INFO VERIFIED: PCP, Contact Info, Address Type of housing (single family, condo, apartment, senior living, single room occupancy, ESD funded hotel room, group mcfp) - Single Level, Single Family Who does the patient live with? SO Luis Does the patient have access to their own bedroom/bathroom/kitchen - or is it shared with others? Shared Name of housing complex (ex [employer] [facility], [facility], etc)- n/a Housing Authority/Managing Organization - n/a Community Care Providers (hospice case manager, [facility] nurse, etc) name and contact information- n/a [...] expects to be discharged to: Home CULTURAL, MORAVIAN and/or LANGUAGE factors affecting health care/discharge planning: [...] Health Services: None DME Provider: Pharmacy: [facility] [place], [place] - [address] [place] [id number] Home Health: Other: [facility] H[facility] TRANSITION PLAN: [...] has provided her with a pair from [employer] and she is aware CM will fax clinical to them and she may get billed if insurance does notcover. On dc, she is open to home health on dc and would then like to go to out pt PT at [facility]. She chooses [facility] for her home health agency. No further questions or concernsvoiced to at this time, SO Luis will transport her home. LIS NICHOLSON 07/01/2021 9:51 THRITEssie Mcclain, PT - 06/30/2021 1651 EDT [facility] Contact Note Date of [...] media) DONNIE BAIG MD 06/30/2021 6:57 Donnie Saucedo MD - 06/17/2021 1600 EDTPost-Procedure Diagnose(s): Effusion of left knee joint PROBLEM: Right knee pain SUBJECTIVE: Seng Muse is a 45 y.o. female who is here today to discuss right knee arthroplasty. Shehas been seen here for the past 3+ years. She originally presented for right knee pain . Seng had a right HTO in 2007 at [facility]. Eventually right knee became much more [...] plantar fasciitis ??? GASTRIC BYPASS SURGERY 2016 [facility] ??? KNEE SURGERY Right [...] typically feels somewhat different than the patient's [place] joint and may make unusual sounds including [...] the correct patient, procedure, equipment, customer support representative and site/side marked as required. Patient was prepped anddraped in the usual sterile fashion. documented in this encounter OR Notes OR Surgeon - Donnie Baig MD - 06/30/2021 1046 EDT TOTAL KNEE Operative Note Date: 06/30/21 10:46 Location: [facility] OR Name: Seng Dom Almaz, : 1975, Diagnosis Right knee DJD Post-op [...] No. Total Joint Implant CEMENT RESTRICTOR - [id number] Implanted Total Joint Implant COMPONENT FEM RIGHT SIZE 6 CEMENTED TRIATHLON PS CO - [id number] Implanted Total Joint Implant KNEE STEM EXTENSION CEMENTED [id number] TRIATHLON [id number] - [id number] Implanted Plate Implant BASEPLATE SIZE 6 TRIATHLON TS CO - [id number] Implanted Patella KNEE PATELLAR COMPONENT ASYMMETRIC [id number] TRIATHLON [id number] - [id number] Implanted Ortho Implant CEMENT BONE HIGH VISCOSITY TOBRAMYCIN RADIOPAQUE SINGLE DOSE LOVE 40GM SIMPLEX [id number]- [id number] Implanted Ortho Implant CEMENT BONE SIMPLEX P RADIOPAQUE FULL DOSE ST - [id number] Implanted Total Joint Implant KNEE TIBIAL INSERT FIXED SIZE 6 TS 13MM TRIATHLON [id number] - [id number] Implanted Staff: Cabin Service Agent: Ainsley Olivarez RN Relief Cabin Service Agent: Augustine Hanna RN Scrub Person: Erma Mclaughlin; Brett Randall Signs And Displays Sales Representative: Laina Brumfield Indications: Seng Muse is an [...] tolerated the procedure well. Condition: stable Specimens:None CHRISTOPHER MERIAM, MD 06/30/21 10:46 reprocedure Instructions - Shelly [...] with her crutches and home health through [facility]. She is aware and in agreement with this discharge plan. New dc order and AVS faxed to [facility]. Her So will transport her home today. lan of Care - Daniela Lucio, SUSI - 07/02/2021 0446 EDT Problem: High Fall Risk: Goal: Patient will Remain Free of Falls due to Altered Mobility Outcome: Met This Shift Problem: PAIN Goal: Patient's pain/discomfort is manageable/tolerable Outcome: Not Met This Shift lan of Care - Chantel Holm RN - 07/01/2021 1540 EDT At approx [...] Documentation Outcome: Met This Shift lan of Care - Lis Nicholson - 07/01/2021 1149 EDT CM Discharge Note: Seng is discharged to home today with crutches from [facility] per PT request. All clinical and script will be faxed to [facility] and she is aware they will bill her insurance and she may have a co-pay. She has declined home health at this time through [facility] and instead would like to go to outpt PT which rehab feels is appropriate. She has chosen [facility] in [place] and has made a referral. Darleen spoke with [facility] PT outpt and they can not fit her in for the next few weeks, is aware and willorder in the interim. Darleen spoke with pt and she is aware and in agreement with this. DARLEEN will fax all clinical to [facility], which is the pt preferred agency. DARLEEN was not made aware that pt was having increased pain and pt did not feel comfortable going home yesterday afternoon. She did stay the night per nursing notes due to this. Will follow up with pt and [facility] to update them of when dc will occur. lowsheet Note - Gail Orr, PT - 07/01/2021 1017 EDT Patient is [...] agreeable to using the walker. lan of Care - Chantel Holm RN - 06/30/2021 1438 [...] Visit Orthopedic Surgery Derrell Baig MD [address] [address] (Wo rk) Scheduled Referrals Name Type Priority Associated Order Schedule Diagnoses PROVIDER FOLLOW-UP Outpatient Routine/Next Ordered: INSTRUCTIONS Referral Available 07/01/2021 AMB CONS/FOLLOW UP Outpatient Routine/Next Arthritis of Expected: PHYSICAL THERAPY - Referral Available right knee OUTSIDE OF NETWORK (Approxim ate), Expires: 07/01/2022 [...] nature WBC 6.23 4.00 - 12.40 K/cmm [facility] RBC 2.78 (L) 3.86 - 5.04 M/cmm [facility] Hemoglobin 8.6 (L) 11.6 - 15.2 gm/dL [facility] HCT 25.9 (L) 34.9 - 44.4 % [facility] MCV 93 81 - 98 fl [facility] MCH 30.9 26.7 - 33.3 pg [facility] MCHC 33.2 32.1 - 35.9 gm/dL [facility] RDW-CV 12.6 <14.7 % [facility] RDW-SD 43.7 <50.4 fl [facility] PLT 204 141 - 377 K/cmm [facility] MPV 9.4 (L) 9.5 - 12.7 fl [facility] Specimen Blood - Venous blood (substance) Performing Organization Address City/State/ZIP Code Phon e Number [facility] [address] [place] [address] XR LEG LENGTH EVALUATION (PRE AND POST OP) (07/01/2021 12:31 EDT) Anatomical Region Laterality Modality Lower Extremities Computed Radiography Specimen Narrative [facility] - 07/01/2021 13:23 [...] op right TKR. COMPARISON: Leg alignment series . TECHNIQUE: Standing AP view of both lowe [...] reign body is seen. Performing Organization Address [facility] Phon e Number [facility] (ABNORMAL) COMPLETE BLOOD COUNT (07/01/2021 6:36 EDT) Pathologist Sig nature WBC 7.82 4.00 - 12.40 K/cmm [facility] RBC 2.84 (L) 3.86 - 5.04 M/cmm [facility] Hemoglobin 8.7 (L) 11.6 - 15.2 gm/dL [facility] HCT 25.9 (L) 34.9 - 44.4 % [facility] MCV 91 81 - 98 fl [facility] MCH 30.6 26.7 - 33.3 pg [facility] MCHC 33.6 32.1 - 35.9 gm/dL [facility] RDW-CV 12.5 <14.7 % [facility] RDW-SD 41.7 <50.4 fl [facility] PLT 215 141 - 377 K/cmm [facility] MPV 10.0 9.5 - 12.7 fl [facility] Specimen Blood - Venous blood (substance) Performing Organization Address [facility] e Number [facility] [address] [place] [address] GLUCOSE, SERUM (07/01/2021 6:36 EDT) Pathologist Sig [facility] Glucose 73 70 - 100 mg/dL [facility] Specimen Blood - Venous blood (substance) Performing Organization Address [facility] Phon e Number [facility] [address] [place] [address] ELECTROLYTES (07/01/2021 6:36 EDT) Pathologist Sig nature Sodium 137 136 - 145 mmol/L [facility] Potassium 3.8 3.5 - 5.0 mmol/L [facility] Chloride 104 96 - 110 mmol/L [facility] CO2 Total 27 22 - 32 mmol/L [facility] Anion Gap 6 5 - 14 [facility] Specimen Blood - Venous blood (substance) Performing Organization Address [facility]/ZIP Code Phon e Number [facility] [address] [place] [address] CREATININE (07/01/2021 6:36 EDT) Pathologist Sig nature Creatinine 0.57 0.52 - 1.04 mg/dL [facility] eGFR 113 >60 mL/min/1.73m2 [facility] Specimen Blood - Venous blood (substance) Performing Organization Address [facility] Phon e Number [facility] [address] [place] [address] BUN (07/01/2021 6:36 EDT) Pathologist Sig nature BUN 16 10 - 26 mg/dL [facility] Specimen Blood - Venous blood (substance) Performing Organization Address [facility]/ZIP [facility] Phon e Number [facility] [address] [place] [address] PATIENT RE-TYPE (06/30/2021 7:50 EDT) Pathologist Sig nature ABO A [facility] Rh Factor Positive [facility] Specimen Blood - Venous blood (substance) Performing Organization Address [facility]/ZIP [facility] Phon e Number [facility] [address] [place] [address] TYPE AND SCREEN (06/30/2021 7:46 EDT) ABO A [facility] Rh Factor Positive [facility] Antibody Screen Negative [facility] Specimen Expires: 07/30/2021 @ 23:59 [facility] Specimen Blood - Venous blood (substance) Performing Organization Address [facility]/ZIP [facility] Phon e Number [facility] [address] [place] [address] documented in this encounter Visit Diagnoses Diagnosis Right knee DJD - Primary Osteoarthrosis, unspecified whether gene ralized or localized, lower leg Arthritis of right knee Unspecified arthropathy, lower leg S/P total knee arthroplasty, right Primary osteoarthritis of right knee Primary localized osteoarthrosis, lower leg documented in this encounter Admitting Diagnoses Diagnosis [...] mg Given 07/01/2021 8:34 EDT 325 mg bupivacaine liposome (PF) (EXPAREL) 1.3 % (13.3 Given 06/30/2021 10:45 EDT 20 mg mg/mL) infiltration PRN, Starting on Tue06/30/21 at 1045, Until Tue06/30/21 at 1113, Routine, Intraprocedure calcium carbonate (OS-NGOC) 500 mg (1,250 mg) [...] Until Tue06/30/21 at 1343, Routine, Recovery (only) lidocaine-EPINEPHrine 1 %-1:100,000 inje ction Given 06/30/2021 10:45 EDT 10 mL PRN, Starting on Tue06/30/21 at 1045, Until Tue06/30/21 at 1113, Routine, Intraprocedure methocarbamoL (ROBAXIN) tablet 500 mg Given 06/30/2021 7:33 EDT 500 mg 500 mg, oral, PRE-OP ONCE, 1 dose, On Tue06/30/21 at 0700, Routine, Preprocedure methocarbamoL (ROBAXIN) tablet 500 mg Given 07/02/2021 12:13 EDT 500 mg 500 mg, oral, 3 TIMES DAILY PRN, Starting on Tue06/30/21 at 1322, Until Tue07/02/21 at 1636, spasms, Routine Given 07/02/2021 5:42 EDT 500 mg Given 07/01/2021 13:58 EDT 500 mg morphine PF injection 1 mg Given 07/01/2021 18:46 EDT 1 mg 1 mg, intravenous, EVERY 2 HOURS PRN, Starting on Tue06/30/21 at 1322, Until Tue07/02/21 at 1636, Pain, breakthrough pain, Routine multivitamin-iron [...] Until Tue07/02/21 at 1636, Nausea, Vomiting, Routine ondansetron (ZOFRAN-ODT) disintegrating tablet 4 Given 07/02/2021 12:14 EDT 4 mg mg 4 mg, oral, EVERY 6 HOURS PRN, Starting on Tue06/30/21 at 1322, Until Tue07/02/21 at 1636, Nausea, Routine Given 07/01/2021 18:02 [...] RN)0833 (See Alternative - Provider: Alejandrina Nguyen)1229 (MAY [...] mg (COMPLETED) 0732 (Given - Provider: Bonnie Avendano RN) 975 mg, oral, PRE-OP ONCE, 1 dose, On 06/30/21 at 0700, Routine, Preprocedure acetaminophen (TYLENOL) tablet 975 mg(Linked Group 1) 1406 (Given - Provider: Chantel Holm RN)1949 (See Alternative - Provider: Sanjeev Morley RN)2009 (Given - Provider: Sanjeev Morley RN - [...] Holm RN) 0006 (Given - Provider: Sanjeev Morley, SUSI) 2,000 mg, intravenous, Administer over 3 [...] (MAY Unhold - Provider: Automatic Transfer Provider Hn)1651 (Given - Provider: Chantel Holm, RN) 2,000 Units, oral, DAILY WITH DINNER, 10 doses, First dose on Tue06/30/21 at 1700, Last dose on Tue07/09/21 at 1700, Routine cyclobenzaprine (FLEXERIL) tablet 10 mg 215 (Given - Provider: Sanjeev Morley, RN) 1229 ([facility] Hold - Provider: Automatic Tra nsfer Provider Hn - Reason: Patient off unit)124 ([facility] Unhold - Provider: Automatic Transfer Provider Hn)213 (Given - Provider: Daniela Lucio, RN) 10 mg, oral, AT BEDTIME, First dose on 06/30/21 at 2100, Until Discontinued, Routine docusate sodium (COLACE) capsule 200 mg 210 (Given - Provider: Sanjeev Morley, SUSI) 0834 (Given - Provider: Alejandrina Nguyen)12 ([facility] Hold - Provider: Automatic Transfer Provider Hn - Reason: Patient off unit)1241 ([facility] Unhold - Provider: Automatic Transfer Provider Hn)213 (Given - Provider: Daniela Lucio, USSI) 0814 (Given - Provider: Janeth Benson, SUSI) 200 mg, oral, 2 TIMES DAILY, First dose on Tue06/30/21 at 2100, Until Discontinued, Routine DULoxetine (CYMBALTA) delayed release capsule 60 mg 0833 (Given - Provider: Aleajndrina Nguyen)1229 ([facility] Hold - Provider: Automatic Transfer Provider Hn - Reason: Patient off unit)1241 ([facility] Unhold - Provider: Automatic Transfer Provider Hn) 0814 (Given - Provider: Janeth Benson, RN ) 60 mg, oral, DAILY, First dose on Tue at 0900, Until Discontinued, Routine ferrous sulfate EC tablet 324 mg 0833 (G iven - Provider: Alejandrina Nguyen)1229 (MAY Hold - Provider: Automatic Transfer Provider Hn - Reason: Patient off unit)1241 ([facility] Unhold - Provider: Automatic Transfer Provider Hn) 0814 (Given - Provider: Janeth Benson, SUSI) 324 mg, oral, DAILY WITH BREAKFAST, Firs t dose on Tue07/01/21 at 0800, Until Discontinued gabapentin (NEURONTIN) capsule 300 mg 140 (Given - Pr ovider: Chantel Holm, RN)2017 (Given - Provider: Sanjeev Morley RN) 0834 (Given - Provider: Alejandrina Nguyen)1229 (MAY Hold - Provider: Automatic Transfer Provider Hn - Reason: Patient off unit)1241 (MAY Unhold - Provider: Automatic Transfer Provider Hn)1330 (Given - Provider: Alejandrina Nguyen) 0814 (Given - Provider: Janeth Benson RN)1329 (Given - Provider: Janeth Benson RN) 300 [...] Lucio RN )0813 (Given - Provider: Janeth Benson RN)1329 (Given - Provider: Janeth Benson RN) 15 [...] (Given - Provider: Chantel Holm, RN) 1229 ([facility] Hold - Provider: Automatic Transfer Provider Hn - Reason: Patient off unit)1241 ([facility] Unhold - Provider: Automatic Transfer Provider Hn)1651 (Given - Provider: Chantel Holm, RN) 1 Tablet, oral, DAILY WITH DINNER, First dose on Tue06/30/21 at 1700, Until Discontinued, Routine pantoprazole (PROTONIX) tablet 40 mg 063 8 (Given - Provider: Sanjeev Morley RN)1229 ([facility] Hold - Provider: Automatic Transfer Provider Hn - Reason: Patient off unit)1241 ([facility] Unhold - Provider: Automatic Transfer Provider Hn) 0602 (Given - Provider: Daniela Lucio, SUSI) 40 mg, oral, DAILY BEFORE BREAKFAST, Fir st dose on Tue07/01/21 at 0700, Until Discontinued polyethylene glycol 3350 (MIRALAX) packet 17 g 0832 (Given - Provider: Alejandrina Nguyen)1229 ([facility] - Provider: Automatic Transfer Provider Hn - Reason: Patient off unit)1241 ([facility] Unhold - Provider: Automatic Transfer Provider Hn) 0813 (Given - Provider: Janeth Benson, SUSI) 17 g, oral, DAILY, First dose on 06/13 at 0900, Until Discontinued, Routine senna (SENOKOT) tablet 2 Tablet 2103 (Given - Provider: Sanjeev Morley RN) 0833 (Given - Provider: Alejandrina Nguyen)1229 ([facility] - Provider: Automatic Transfer Provider Hn - Reason: Patient off unit)1241 ([facility] Unhold - Provider: Automatic Transfer Provider Hn)2133 (Given - Provider: Daniela Lucio, SUSI) 0814 (Given - Provider: Janeth Benson, SUSI) 2 Tablet, oral, 2 TIMES DAILY, First dos e on Tue06/30/21 at 2100, Until Discontinued, Routine zinc sulfate (ZINCATE) capsule 220 mg 1407 (Given - Provider : Chantel Holm, SUSI) 1229 ([facility] - Provider: Automatic Transfer Provider Hn - Reason: Patient off unit)1241 ([facility] Unhold - Provider: Automatic Transfer Provider [...] Chantel Holm, RN)1841 (IV Stopped - Provider: Chatnel Holm, RN) at 75 mL/hr, intravenous, CONTINUOUS, [...] (CANCELED) 07 27 (Given - Provider: Bonnie Avendano SUSI) 1 Each, topical, PRE-OP MULTIPLE, 2 dose s, Starting on Tue06/30/21 at 0634, Until Tue06/30/21 at 1137, preop TJR, Routine, Preprocedure dexAMETHasone (DECADRON) injection 4 mg (COMPLETED) 12 51 (Given - Provider: Olayinka Walters, RN) 4 mg, intravenous, ONCE PRN, 1 dose, Sta rting on Tue06/30/21 at 1115, Until 06/30/21 at 2359, Nausea, Routine, Recovery (only) diphenhydrAMINE (BENADRYL) capsule 25 mg(Linked Group 2) 1229 ([facility] Hold - Provider: Automatic Transfer Provider Hn - Reason: Patient off unit)1241 ([facility] Unhold - Provider: Automatic Transfer Provider Hn) 25 mg, oral, EVERY 6 HOURS PRN, Starting on e 06/30/21 at 1322, Until Ofe 07/02/21 at 1636, Itching, Routine diphenhydrAMINE (BENADRYL) elixir 25 mg(Linked Group 2) 1229 ([facility] Hold - Provider: Automatic Transfer Provider Hn - Reason: Patient off unit)1241 ([facility] Unhold - Provider: Automatic Transfer Provider Hn) 25 mg, oral, EVERY 6 HOURS PRN, Starting on Tue06/30/21 at 1322, Until Ofe 07/02/21 at 1636, Itching, Routine diphenhydrAMINE (BENADRYL) injection 25 mg(Linked Group 2) 1229 ([facility] Hold - Provider: Automatic Transfer Provider Hn - Reason: Patient off unit)1241 ([facility] Unhold - Provider: Automatic Transfer Provider Hn) 25 mg, intravenous, EVERY 6 HOURS PRN, S tarting on e 06/30/21 at 1322, Until Ofe 07/02/21 at 1636, Itching, Routine diphenhydrAMINE (BENADRYL) injection 6.25 mg (COMPLETE D) 1143 (Given - Provider: Olayinka Walters, SUSI) 6.25 mg, intravenous, ONCE PRN, 1 dose, [...] RN) 0253 (See Alternative - Provider: Sanjeev cueva, SUSI)0647 (Given - Provider: Sanjeev Morley RN)1035 (Given - Provider: Alejandrina Nguyen)1229 (MAY Hold - Provider: Automatic Transfer Provider Hn - Reason: Patient off unit) 0544 (Given - Provider: Daniela Lucio, RN)1023 (See Alternative - Provider: Janeth Benson, RN) 10 mg, oral, EVERY 4 HOURS [...] unit) 0544 (See Alternative - Provider: Daniela Lucio, SUSI)1023 (Given - Provider: Janeth Benson, SUSI) 5 [...] 06/30 bisacodyL (DULCOLAX) suppository 10 mg 2 ceFAZolin in dextrose 5 % (ANCEF) IVPB 2 DUPLEX 2 g chlorhexidine gluconate 0.05 % in water 07/01/19 (IRRISEPT) irrigation 450 mL diphenhydrAMINE (BENADRYL) capsule 25 mg diphenhydrAMINE (BENADRYL) elixir 25 mg 07/01/19 diphenhydrAMINE (BENADRYL) injection 25 mg 06/30 fentaNYL citrate (PF) injection 25 mcg 2 glycopyrrolate (ROBINUL) injection 0.2 mg 2021 HYDROmorphone (PF) (DILAUDID) 0.5 mg/0.5 022 mL syringe 0.5 mg lactated ringers (LR) infusion 06/30/2021 lactated ringers BOLUS 500 mL 06/30/2021 lidocaine (PF) 10 mg/mL (1 %) injection 2 2021 mg ondansetron (PF) (ZOFRAN) injection 4 mg 022 oxyCODONE (ROXICODONE) immediate release 1 tablet 5-10 mg sodium chloride 0.9 % (flush) flush 5 mL 1 022 Procedures Count Last Ordered Date First Ordered [...] 07/01/2021 documented in this encounter Care Teams Windows Software Developer Relationship Specialty Start Date End Date Toyin Frias NP PCP - General 05/07/21 [address] [place] [address] documented as of this encounter
--- OUTSIDE RECORDS SUMMARY | 2021-10-09 00:07 | XMS_ITS | Encounter Summary ---
:1975 Author Organization [facility] Address [address] [place] [address] Care Team Providers Name Role Phone Toyin Frias NP Primary Care Provider Encounter Details Date Type Department Care Team Description 06/17/2021 Travel Social History Tobacco Use Types Packs/Day Years Used Date Never Smoker Smokeless Tobacco: Never Used Alcohol Use Standard Drinks/Week Comments Yes 0 (1 standard drink = 0.6 oz pure alcoho l) Sex Assigned at Date Recorded Not on file COVID-19 Exposure Response Date Recorded In the last 10 days, have you been in contact with No / Unsu re 06/17/2021 16:04 EDT someone who was confirmed or suspected [...] Office Visit Orthopedic Surgery Derrell Baig MD [address] [place] [address] (Wo rk) documented as of this encounter Visit Diagnoses Not on filedocumented in this encounter Care Teams Appeals Specialist Relationship Specialty Start Date End Date Toyin Frias NP PCP - General 05/07/[address] [place] [phone] documented as of this encounter
--- OUTSIDE RECORDS SUMMARY | 2021-10-09 00:07 | XMS_ITS | Encounter Summary ---
:1975 Author Organization [facility] Address [address] [place] [address] Care Team Providers Name Role Phone Toyin Frias FLATWORK FINISHER Primary Care Provider Encounter Details Date Type Department Care Team Description 06/11/2021 Results Only [facility] Toyin Frias , MARIUSZ Laboratory Services - Main [address] [place], [place] 111 [facility] [address] [place] [address] [phone] Social History Tobacco Use Types Packs/Day Years [...] Office Visit Orthopedic Surgery Derrell Baig MD [address] [place] [address] (Wo rk) documented as of this encounter Procedures Procedure Name Priority Date/Time Associated Diagnosis Comme nts LIPID PROFILE Routine 06/11/2021 6:29 EDT Results for this (INCLUDES procedure are i n CHOLESTEROL, the results TRIGLYCERIDES, HDL, section. LDL) documented in this encounter Results (ABNORMAL) LIPID PROFILE (INCLUDES CHOLESTEROL, TRIGLYCERIDES, HDL, LDL) (06/11/2021 6:29 EDT) Pathologist Sig nature Cholesterol 228.00 (H) 0.00 - 200.00 mg/dL [facility] dHDL 58.00 40.00 - 60.00 mg/dL [facility] Triglycerides 142.00 0.00 - 150.00 mg/dL [facility] Specimen Performing Organization Address City/State/ZIP Code Phon e Number [facility] [address] [place], [place] [id number] [phone] documented in this encounter Visit Diagnoses Not on filedocumented in this encounter Care Teams Coin Machine Collector Relationship Specialty Start Date End Date Toyin Frias NP PCP - General 05/07/21 [address] [place] [address] documented as of this encounter
--- OUTSIDE RECORDS SUMMARY | 2021-10-09 00:07 | XMS_ITS | Encounter Summary ---
:1975 Author Organization [facility] Address [address] [place] [address] Care Team Providers Name Role Phone Soraya Lovett MD Primary Care Provider Reason for Referral Referral (Routine/Next Available) - Closed Specialty Diagnoses / Procedures Referred By Contact Refer red To Contact Pain Medicine Diagnoses Facet arthropathy, lumbar DDD (degenerative disc disease), lumbar Chronic bilateral low back pain with bilateral sciatica Gali Gilmore NP [facility] Procedures RADIOFREQUENCY ABLATION [address] [phone] [place] [address] Referral ID Status Reason Start Date Expiration Date Visits Requ ested Visits Authorized [id number] Closed 04/06/2021 1 1 eferral (Routine/Next Available) - Closed Specialty Diagnoses / Procedures Referred By Contact Refer red To Contact Pain Medicine Diagnoses Facet arthropathy, lumbar DDD (degenerative disc disease), lumbar Chronic bilateral low back pain with bilateral sciatica Gail Gilmore NP [facility] Procedures MEDIAL BRANCH BLOCK [address] [place] [address] [place] [address] Referral ID Status Reason Start Date Expiration Date Visits Requ ested Visits Authorized [id number] Closed 04/06/2021 1 1 eferral (Routine/Next Available) - Closed Specialty Diagnoses / Procedures Referred By Contact Refer red To Contact Pain Medicine Diagnoses Facet arthropathy, lumbar DDD (degenerative disc disease), lumbar Chronic bilateral low back pain with bilateral sciatica Gail Gilmore, IRIDOLOGIST [facility] Procedures MEDIAL BRANCH BLOCK [address] [place] [address] [place] [address] Referral ID Status Reason Start Date Expiration Date Visits Requ ested Visits Authorized [id number] Closed 04/06/2021 1 1 Reason for Visit Reason Comments Pain Pain Encounter Details Date Type Department Care Team Description 04/06/2021 Office Visit [facility] Gail Gilmore Fa cet arthropathy, lumbar (Primary Dx); [facility] Orthopedics & IRIDOLOGIST DDD (degenerative disc disease), lumbar; Spine Medicine [address] Chronic bilateral low back pain with myranda ateral sciatica [address], [place], [place] [phone] [place], [place] [address] Social History Tobacco Use Types Packs/Day Years Used Date Never Smoker Smokeless Tobacco: Never Used Alcohol Use Standard Drinks/Week Comments Yes 0 (1 standard drink = 0.6 oz pure alcoho l) Sex Assigned at Date Recorded Not on file COVID-19 Exposure Response Date Recorded In the last month, have you been in contact with No / Unsure 04/06/2021 13:13 EST someone who was confirmed or suspected to have Coronavirus / COVID-19? documented as of this encounter Last Filed Vital Signs Vital Sign Reading Time Taken Comments Blood Pressure 142/72 04/06/2021 1315 EST Pulse 100 04/06/2021 1315 EST Temperature 36.2 ??C (97.1 ??F) 04/06/2021 1315 EST Respiratory Rate - - Oxygen Saturation 98% 04/06/2021 1315 EST Inhaled Oxygen Concentration - - Weight 108.3 kg (238 lb 12.8 oz) 04/06/2021 1315 EST Height 165.1 cm (5' 5) 04/06/2021 1315 EST Body Mass Index 39.74 04/06/2021 1315 EST documented in this encounter Functional Status Functional [...] making decisions? documented as of this encounter Patient Instructions Patient InstructionsBrGail mo APRN - 04/06/2021 13:00 EST You have been referred for an injection at the [facility]. Our office will send an order over to the Pain Clinic and they will contact you for scheduling. Please give the pain clinic 2 weeks to process your referral and obtain insurance authorization. If you have not heard from the pain clinic in 2 weeks, you may call them at [phone] to check on thestatus of scheduling your injection. PLEASE NOTE - YOU SHOULD NOT HAVE A FLU or COVID SHOT WITHIN THE 2 WEEKS BEFORE, OR THE 2 WEEKS AFTER YOUR PAIN CLINIC INJECTION. documented in this encounter Progress Notes Gail Gilmore APRN - 04/06/2021 1300 EST Medical Decision Making Seng is a pleasant 45 y.o. female seen in evaluation for her chief complaint of left-sided lower back pain. Today, I discussed with the patient that she could reasonably consider moving forward with medial branch blocks and progression to radiofrequency ablation. She advises me that Dr. Baig has ordered this for her knees. She is amenable to moving forward with this for her left-sided lower lumbar facets and I will see her back once this is completed. I spent a total of 25 minutes on the date of this encounter meeting with the patient and reviewing documentation/coordinating care as described in this note. No procedure was performed at today's visit. Imaging/Test Review No new imaging was ordered for review Diagnosis 1. Facet arthropathy, lumbar MEDIAL BRANCH BLOCK MEDIAL BRANCH BLOCK RADIOFREQUENCY ABLATION 2. DDD (degenerative disc disease), lumbar MEDIAL BRANCH BLOCK MEDIAL BRANCH BLOCK RADIOFREQUENCY ABLATION 3. Chronic bilateral low back pain with bilateral sciatica MEDIAL BRANCH BLOCK MEDIAL BRANCH BLOCK RADIOFREQUENCY ABLATION Plan 1. Medial branch block with progression RFA left L4-S1 2. Follow-up with me when the above is completed HPI Seng is a 45 y.o. female last seen by me on 08/20/2020 and at that time, she was seen for a chief complaint of low back pain radiating to the bilateral lower extremities. At the time of her last visit, her back pain was doing quite well after her facet injections but she had become more bothered by her leg and knee symptoms. We subsequently recommended moving forward with an L4-5 epidural injection to see if this could mitigate any of her lower extremity symptoms. It should also be noted that she is scheduled for a right total knee replacement in June [address] Derrell Baig MD. The patient was seen at the [facility] pain clinic on 10/30/2020 where she received a translaminar L4-5 epidural steroid injection. The patient had 50 to 60% improvement in her lower extremity symptoms but feels as though she is back to baseline. She has also had return of her left-sided lower back pain which has become more bothersome. The patient's medical profile was reviewed and dated today. It contains a detailed past medical history, past surgical history, list of medications, allergies, social history and family medical historyand was reviewed and updated in the EMR. reports that she has never smoked. She has never used smokeless tobacco. She reports current alcohol use. Conservative Treatment: Physical Therapy: She has had extensive physical therapy Home Exercise Program: She performs this as tolerated Medications: Gabapentin, Celebrex, Tylenol, ibuprofen, Percocet, Medrol Dosepak Other: None Injections: 1. Left L4-S1 facet injections (05/09/2020)-more than 50% improvement 2. Translaminar L4-5 IDALMIS (10/30/2020)-50 to 60% improvement ROS A five-point review of systems was completed today and of note, pertinent positives and negatives are indicated in the HPI Physical Examination BP (!) 142/72 (BP Cuff Location: Left arm, BP Patient Position: Sitting, BP Cuff Sizes: Adult, regular) Pulse 100 Temp 36.2 ??C (97.1 ??F) Ht 165.1 cm (65) Wt (!) 108.3 kg (238 lb 12.8 oz) SpO2 98% BMI 39.74 kg/m?? Pain Ratin-6 over 10 General: Pleasant, cooperative, mood and affect are appropriate. Neuro: Alert and oriented to person, place, time and purpose. Posture: Upright Gait: Antalgic favoring the right lower extremity where she does have a clear valgus deformity of the knee Palpation: She is mildly tender to the left lower lumbar region over the L4-5 and L5-S1 facet region. There are no palpable masses, lesions or deformities. Skin: Intact with no stigmata of underlying disease. ROM: She has increased discomfort upon extension Sensation: Grossly intact throughout all dermatomes Provocative Maneuvers: Positive facet loading maneuvers with increased pain on extension and rotation Anu Signs: 0/5 CC: Primary Care Provider: Soraya Lovett [address] [facility] [address] Referring Provider: Soraya SANCHEZ DICTATION WAS USED FOR NOTE COMPLETION. PLEASE EXCUSE ALL MISSPELLINGS AND PUNCTUATION ERRORS. DUONG Milligan 04/06/21 [facility] Orthopedic Spine and Neurosurgery documented in this encounter Plan of Treatment Upcoming Encounters Date Type Specialty Care Team Description 01/08/2022 Office Visit Orthopedic Surgery Derrell Baig MD [address] [address] (Wo rk) Scheduled Orders Name Type Priority Associated Diagnoses Order S chedule MEDIAL BRANCH BLOCK Procedures Routine Facet arthropathy, Ex pected: lumbar 04/13/2021 DDD (degenerative disc (Appr oximate), disease), lumbar Expires: 04/06/2022 Chronic bilateral low back pain with bilateral sciatica MEDIAL BRANCH BLOCK Procedures Routine Facet arthropathy, Ex pected: lumbar 04/13/2021 DDD (degenerative disc (Appr oximate), disease), lumbar Expires: 04/06/2022 Chronic bilateral low back pain with bilateral sciatica RADIOFREQUENCY ABLATION Procedures Routine Facet arthropathy , Expected: lumbar 04/13/2021 DDD (degenerative disc (Appr oximate), disease), lumbar Expires: 04/06/2022 Chronic bilateral low back pain with bilateral sciatica documented as of this encounter Visit Diagnoses Diagnosis Facet arthropathy, lumbar - Primary 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
--- OUTSIDE RECORDS SUMMARY | 2021-10-09 00:07 | XMS_ITS | Encounter Summary ---
:1975 Author Organization [facility] Address [address] [place] [address] Care Team Providers Name Role Phone Soraya Lovett MD Primary Care Provider Encounter Details Date Type Department Care Team Description 03/18/2021 Travel Social History Tobacco Use Types Packs/Day [...] Visit Orthopedic Surgery Derrell Baig MD [address] [place] [address] [place] [phone] (Wo rk) documented as of this encounter Visit Diagnoses Not on filedocumented in this encounter Care Teams Trimming Press Operator Relationship Specialty Start Date End Date Soraya Lovett MD PCP - General 12/12/13 05/06/21 [address] [place] [address] documented as of this encounter
--- OUTSIDE RECORDS SUMMARY | 2021-10-09 00:07 | XMS_ITS | Encounter Summary ---
:1975 Author Organization [facility] Address [address] [place] [address] Care Team Providers Name Role Phone Soraya Lovett MD Primary Care Provider Reason for Referral Consult (See Order Priority) - Closed Specialty Diagnoses / Procedures Referred By Contact Refer red To Contact Anesthesiology Diagnoses Primary osteoarthritis of left knee Reggie Baig [facility] [address] [facility] [address] [place] [address] Referral ID Status Reason Start Date Expiration Date Visits V isits Requested Authorized [id number] Closed Specialty 03/27/2021 1 1 Services Required Question Answer Reason for Request: LEFT KNEE RFA- LEFT KNEE RACHEAL N Reason for Visit Reason Comments Pain Encounter Details Date Type Department Care Team Description 03/27/2021 Procedure visit [facility] Parviz Baig - [facility] Orthopedics Reggie Goff MD osteoarthritis of & Sport Medicine [address] [place] [address] left knee (Primary [address], [facility] ad Dx) [address] [place] [address] [place], [place] [id number] Social History Tobacco Use Types Packs/Day Years Used Date Never Smoker Smokeless Tobacco: Never Used Alcohol Use Standard Drinks/Week Comments Yes 0 (1 standard drink = 0.6 oz pure alcoho l) Sex Assigned at Date Recorded Not on file COVID-19 Exposure Response Date Recorded In the last month, have you been in contact with No / Unsure 03/27/2021 16:42 EST someone who was confirmed or suspected to have Coronavirus / COVID-19? documented as of this encounter Last Filed Vital Signs Vital Sign Reading Time Taken Comments Blood Pressure - - Pulse - - Temperature 36.2 ??C (97.1 ??F) 03/27/2021 1646 EST Respiratory Rate - - Oxygen Saturation - [...] encounter Progress Notes Reggie Baig MD - 03/27/2021 1645 ESTAssociated Order(s): Large Joint Injection/Arthrocentesis: L kneePost-Procedure Diagnose(s): Primary osteoarthritis of left knee Problem: Seng presents today for left knee Monovisc. 1. Primary osteoarthritis of left knee AMB CONS/FOLLOW UP ANESTHESIOLOGY Procedure: Large Joint Injection/Arthrocentesis: L knee on 03/27/2021 16:45 Details: 22 G needle, lateral approach Medications: 88 mg hyaluronate sodium, stabilized 88 mg/4 mL Outcome: tolerated well, no immediate complications Procedure, treatment alternatives, risks and benefits explained, specific risks discussed. Consent was given by the patient. Immediately prior to procedure a time out was called to verify the correct patient, procedure, equipment, computer support analyst and site/side marked as required. Patient was prepped anddraped in the usual sterile fashion. documented in this encounter Plan of Treatment Upcoming Encounters Date Type Specialty Care Team Description 01/08/2022 Office Visit Orthopedic Surgery Derrell Baig MD [facility] [place] [address] (Wo rk) Scheduled Referrals Name Type Priority Associated Diagnoses Order S chedule AMB CONS/FOLLOW UP Outpatient Routine/Next Primary Expected: ANESTHESIOLOGY Referral Available osteoarthritis of 04/27/19 22 left knee (Approximate), Expires: 03/27/2022 documented as of this encounter Procedures Procedure Name Priority Date/Time Associated Diagnosis Comme nts LARGE JOINT Routine 03/27/2021 16:45 Primary osteoarthritis R esults for this INJECTION/ARTHROCE EST of left knee procedure are in NTESIS the results section. documented in this encounter Results [place] ARTHROCENTESIS ASPIR&/INJ MAJOR JT/BURSA W/O US (03/27/2021 16:45 EST) Narrative [facility] POINT [facility]ARE - 03/27/2021 16:45 E Reggie Augustin MD ? 03/27/2021 18:40 Large Joint Injection/Arthrocentesis: L knee on 03/27/2021 16:45 Details: 22 G needle, lateral approach Medications: 88 mg hyaluronate sodium, s tabilized 88 mg/4 mL Outcome: tolerated well, no immediate co mplications Procedure, treatment alternatives, risks and benefits explained, specific risks discussed. Consent was given by th e patient. Immediately prior to procedure a time out was called to verif y the correct patient, procedure, equipment, computer support analyst and site/side m arked as required. Patient was prepped and draped in the usual sterile fashion. Performing Organization Address City/State/ZIP Code Phon e Number [facility] POINT [facility] documented in this encounter Visit Diagnoses Diagnosis Primary osteoarthritis of left knee - Pr imary Primary localized osteoarthrosis, lower leg documented in this encounter Administered Medications Inactive Administered Medications - up to 3 most recent administrations Medication Order MAR Action Action Date Dose Rate Site hyaluronate sodium, stabilized Given 03/27/2021 16:45 EST 88 mg (MONOVISC) syringe 88 mg 88 mg, intra-articular, Once PRN Procedure, 1 dose, Starting on Tue03/27/21 at 1645, Until Tue03/27/21 at 1645, Routine documented in this encounter Orders Medications Ordered That Might Not Have Count Last Ord ered Date First Ordered Date Been Administered hyaluronate sodium, stabilized (MONOVISC) 1 2021 syringe 88 mg documented in this encounter Care Teams Inside Sales Advisor Relationship Specialty Start Date End Date Soraya Lovett MD PCP - General 12/12/13 05/06/21 [address] [place] [address] documented as of this encounter
--- OUTSIDE RECORDS SUMMARY | 2021-10-09 00:07 | XMS_ITS | Encounter Summary ---
:1975 Author Organization [facility] Address [address] [place] [address] Care Team Providers Name Role Phone Soraya Lovett MD Primary Care Provider Encounter Details Date Type Department Care Team Description 03/04/[address] [facility] Toyin Frias NP Laboratory Services - Main [address] [place], [place] 111 [facility] [address] [place] [address] [phone] Social History Tobacco Use Types Packs/Day Years [...] Office Visit Orthopedic Surgery Derrell Baig MD [address] [place] [address] (Wo rk) documented as of this encounter Procedures Procedure Name Priority Date/Time Associated Comments Diagnosis BUPRENORPHINE TOTAL Routine 03/04/2021 9:30 EST R esults for this procedure are i n the results section. documented in this encounter Results BUPRENORPHINE TOTAL (03/04/2021 9:30 EST) Pathologist Sig nature Buprenorphine NEG NEGATIVE [facility] Specimen Performing Organization Address City/State/ZIP Code Phon e Number [facility] [address] [place] [address] [phone] documented in this encounter Visit Diagnoses Not on filedocumented in this encounter Care Teams Power Line Installer Relationship Specialty Start Date End Date Soraya Lovett MD PCP - General 12/12/13 05/06/21 [address] [place] [address] documented as of this encounter
--- OUTSIDE RECORDS SUMMARY | 2021-10-09 00:07 | XMS_ITS | Encounter Summary ---
:1975 Author Organization [facility] Address [address] [place] [address] Care Team Providers Name Role Phone Toyin Frias COMMUNITY PLACEMENT WORKER Primary Care Provider Encounter Details Date Type Department Care Team Description 06/11/2021 Results Only [facility] Toyin Frias , MARIUSZ Laboratory Services - Main [address] [place], [place] 111 [facility] [address] [place] [address] [phone] Social History Tobacco Use Types Packs/Day Years [...] Office Visit Orthopedic Surgery Derrell Baig MD [address] [place] [address] (Wo rk) documented as of this encounter Procedures Procedure Name Priority Date/Time Associated Diagnosis Comme nts MAGNESIUM Routine 06/11/2021 6:29 EDT Results for this procedure are i n the results section . documented in this encounter Results MAGNESIUM (06/11/2021 6:29 EDT) Pathologist Sig nature Magnesium 1.90 1.60 - 2.30 mg/dL [facility] Specimen Performing Organization Address City/State/ZIP Code Phon e Number [facility] [address] [place], [place] [address] documented in this encounter Visit Diagnoses Not on filedocumented in this encounter Care Teams Wwe Wrestler Relationship Specialty Start Date End Date Toyin Frias NP PCP - General 05/07/21 [address] [place] [address] documented as of this encounter
--- OUTSIDE RECORDS SUMMARY | 2021-10-09 00:07 | XMS_ITS | Encounter Summary ---
:1975 Author Organization [facility] Address [address] [place] [address] Care Team Providers Name Role Phone Toyin Frias VISCOSE DEPARTMENT WORKER Primary Care Provider Encounter Details Date Type Department Care Team Description 06/11/2021 Results Only [facility] Toyin Frias , MARIUSZ Laboratory Services - Main [address] [place], [place] [address] [facility] [address] [place] [address] [phone] Social History Tobacco Use Types Packs/Day Years [...] Office Visit Orthopedic Surgery Derrell Baig MD [address] [place] [phone] (Wo rk) documented as of this encounter Procedures Procedure Name Priority Date/Time Associated Comments Diagnosis COMPLETE BLOOD COUNT Routine 06/11/2021 6:29 Resu lts for this WITH DIFFERENTIAL EDT procedure are in (AUTO) the results section. documented in this encounter Results (ABNORMAL) COMPLETE BLOOD COUNT WITH DIFFERENTIAL (AUTO) (06/11/2021 6:29 EDT) Pathologist Sig nature WBC 6.3 4.5 - 10.5 x10e3/uL [facility] Lymphocytes 26.0 20.5 - 51.1 % [facility] Monocytes 5.0 1.7 - 9.3 % [facility] Granulocytes 69.0 42.2 - 75.2 % [facility] Lymph # 1.6 1.2 - 3.4 x10e3/uL [facility] Hamilton # 0.3 0.1 - 0.6 x10e3/uL [facility] Gran # 4.3 1.4 - 6.5 x10e3/uL [facility] RBC 3.66 (L) 4.00 - 6.00 x10e6/uL [facility] HGB 11.4 11.0 - 18.0 g/dL [facility] HCT 33.0 (L) 35.0 - 60.0 % [facility] MCV 90.0 80.0 - 99.9 fL [facility] MCH 31.2 (H) 27.0 - 31.0 pg [facility] MCHC 34.7 33.0 - 37.0 g/dL [facility] RDW 12.4 11.6 - 13.7 % [facility] PLT 309 150 - 450 x10e3/uL [facility] MPV 7.9 7.8 - 11.0 fL [facility] Specimen Performing Organization Address City/State/ZIP Code Phon e Number [facility] [address] [place], [place] [id number] [phone] documented in this encounter Visit Diagnoses Not on filedocumented in this encounter Care Teams Director Of Analytics Relationship Specialty Start Date End Date Toyin Frias NP PCP - General 05/07/21 [address] [place] [phone] documented as of this encounter
--- OUTSIDE RECORDS SUMMARY | 2021-10-09 00:07 | XMS_ITS | Encounter Summary ---
:1975 Author Organization [facility] Address [address] [place] [address] Care Team Providers Name Role Phone Toyin Frias NP Primary Care Provider Encounter Details Date Type Department Care Team Description 05/07/2021 Travel Social History Tobacco Use Types Packs/Day Years Used Date Never Smoker Smokeless Tobacco: Never Used Alcohol Use Standard Drinks/Week Comments Yes 0 (1 standard drink = 0.6 oz pure alcoho l) Sex Assigned at Date Recorded Not on file COVID-19 Exposure Response Date Recorded In the last month, have you been in contact with No / Unsure 05/07/2021 15:25 EST someone who was confirmed or suspected [...] Office Visit Orthopedic Surgery Derrell Baig MD [address] [place] [phone] (Wo rk) documented as of this encounter Visit Diagnoses Not on filedocumented in this encounter Care Teams Hides Soaker Relationship Specialty Start Date End Date Toyin Frias NP PCP - General 05/07/[address] [place] [phone] documented as of this encounter
--- OUTSIDE RECORDS SUMMARY | 2021-10-09 00:07 | XMS_ITS | Encounter Summary ---
:1975 Author Organization [facility] Address [address] [place] [address] Care Team Providers Name Role Phone Soraya Lovett MD Primary Care Provider Encounter Details Date Type Department Care Team Description 03/27/2021 Travel Social History Tobacco Use Types Packs/Day [...] Visit Orthopedic Surgery Derrell Baig MD [address] [place] [address] [place] [phone] (Wo rk) documented as of this encounter Visit Diagnoses Not on filedocumented in this encounter Care Teams Rubber Engraver Relationship Specialty Start Date End Date Soraya Lovett MD PCP - General 12/12/13 05/06/21 [address] [place] [address] documented as of this encounter
--- OUTSIDE RECORDS SUMMARY | 2021-10-09 00:07 | XMS_ITS | Encounter Summary ---
:1975 Author Organization [facility] Address [address] [place] [address] Care Team Providers Name Role Phone Soraya Lovett MD Primary Care Provider Encounter Details Date Type Department Care Team Description 01/23/2021 Travel Social History Tobacco Use Types Packs/Day Years Used Date Never Smoker Smokeless Tobacco: Never Used Alcohol Use Standard Drinks/Week Comments Yes 0 (1 standard drink = 0.6 oz pure alcoho l) Sex Assigned at Date Recorded Not on file COVID-19 Exposure Response Date Recorded In the last month, have you been in contact with No / Unsure 01/23/2021 8:30 EST someone who was confirmed or suspected [...] Office Visit Orthopedic Surgery Derrell Baig MD [address] [place] [address] [place] [phone] (Wo rk) documented as of this encounter Visit Diagnoses Not on filedocumented in this encounter Care Teams Timekeeping Supervisor Relationship Specialty Start Date End Date Soraya Lovett MD PCP - General 12/12/13 05/06/21 [address] [place] [address] documented as of this encounter
--- OUTSIDE RECORDS SUMMARY | 2021-10-09 00:07 | XMS_ITS | Encounter Summary ---
:1975 Author Organization [facility] Address [address] [place] [address] Care Team Providers Name Role Phone Toyin Frias NP Primary Care Provider Reason for Visit Reason Onset Date Comments Other 06/11/2021 Encounter Details Date Type Department Care Team Description 06/11/2021 Telephone [facility] [place]gie Baig MD Other Orthopedics & Sport [address] [place] [address] [address], [place] [address] [facility] [place] [address] [phone] Social History Tobacco Use Types Packs/Day Years [...] making decisions? documented as of this encounter Miscellaneous Notes Telephone Encounter - Patti Amin - 06/18/2021 1103 EDT Pt was seen in the office yesterday and is aware of COVID test. elephone Encounter - Angelitomarva Aubrie - 06/11/2021 1409 EDT Please call Seng and verify when and where she can have covid test for surgery. Would like to have it closer or home. documented in this encounter Plan of Treatment Upcoming Encounters Date Type Specialty Care Team Description 01/08/2022 Office Visit Orthopedic Surgery Derrell Baig MD [address] [address] (Wo rk) documented as of this encounter Visit Diagnoses Not on filedocumented in this encounter Care Teams Fabric Awning Repairer Relationship Specialty Start Date End Date Toyin Frias NP PCP - General 05/07/[address] [place] [phone] documented as of this encounter
--- OUTSIDE RECORDS SUMMARY | 2021-10-09 00:07 | XMS_ITS | Encounter Summary ---
:[address] [facility] Address [address] [place] [address] Care Team Providers Name Role Phone Toyin Frias NP Primary Care Provider Reason for Visit Auth/Cert Specialty Diagnoses / Procedures Referred By Contact Refer red To Contact Diagnoses Primary osteoarthritis of right knee Primary osteoarthritis of right knee [M17.11] Procedures [place] TOTAL KNEE ARTHROPLASTY ARTHROPLASTY, KNEE, TOTAL Referral ID Status Reason Start Date Expiration Date Visits Requ ested Visits Authorized [id number] 1 1 Encounter Details Date Type Department Care Team Description 06/30/2021 Anesthesia Event [facility] - Guido Hendricks MD [facility] Operating Room Francisca Berman MD [address] [place] [phone] [place] [address] Anesthesia Record Procedure Summary Procedure Name Responsible Anesthesia Start Anesthesia Stop Time Anesthesiologist Time ARTHROPLASTY, KNEE, Guido Hendricks MD 06/30/21 0755 1119 TOTAL (Right Knee) Events Date Time Event Comment 06/30/2021 0755 An Start The patient was re-evaluated immediately before moderate or deep sedation use, before anesthesia induction, or be fore the anesthesia procedure. 0755 An Start Data 0805 Anesthesia Ready 1011 An Tourn Inflated Tourniquet Inf lated - Location = RLE, Pressure = 275 mmHg 1035 An Tourn Deflated Tourniquet Def lated - Duration = 24 minutes 1112 an stop data 1118 Handoff to RN I completed my h andoff to the receiving nurse during which we: 1. Identified the patient 2. Identified the r esponsible provider 3. Reviewed the pertinent medica l history 4. Discussed the surgical course 5. Review ed intra-op anesthesia management and issues tcin g anesthesia 6. Set expectations for post-procedu re period 7. Allowed opportunity for questions an d acknowledgement of understanding. 1119 An Stop Name Total lidocaine 2% (PF) injection glass vial 100 mg midazolam (VERSED) injection 1 mg/mL 2 mg ondansetron (PF) (ZOFRAN) injection 4 mg propOFol (DIPRIVAN) injection 1,466,285 mcg lactated ringers (LR) infusion Cannot be calculated ceFAZolin in dextrose 5 % (ANCEF) IVPB DUPLEX 2 g 2 g tranexamic acid injection 2,000 mg Agents Name O2 N2O Air Blood No blood administrations on file. Lines, Drains, and Airways Type Details Placement Removal Peripheral IV 06/30/21; 0723; 20; Left, 06/30/21 0723 by 07/01 0738 by Posterior; Hand; Inserted Bonnie Avendano R N Moore, Nicole, RN by RN (placed by ricky nathan); 1; None; 2% Chlorhexidine with IPA; 07/01/21; 0738; Removed unobserved, Removed by VIGOUREUX PRINTER; No complications, Dressing applied, Catheter intact Wound 06/30/21; 0829; Anterior, 06/30/21 0829 by Aturu , 07/14/21 1339 by Right; Knee; Surgical SUSI Schmitz Je ssica, RN Incisions; N; Full thickness; 07/14/21; 1339; Healed documented in this encounter Social History Tobacco [...] making decisions? documented as of this encounter OR Notes Anesthesia Postprocedure Evaluation - Guido Hendricks MD - 06/30/2021 1119 EDT Patient: Seng Muse Vital signs were reviewed with the recovery nurse. Complete vitals history is available in the Epic flowsheets. Vitals Value Taken Time BP 120/70 06/30/21 1118 Temp 06/30/21 1119 Resp 16 06/30/21 1118 Pulse From Oximetry 78 BPM 06/30/21 1118 SpO2 99 % 06/30/21 1118 Vitals shown include unvalidated device data. Last Pain Score - Numeric Pain Level (Scale 1-10): 1 Type of Anesthesia - spinal Anesthesia Post Evaluation Post-procedure vitals reviewed and are stable. Level of consciousness: alert and oriented and awake Temperature status: normothermia Respiratory status: airway patent Cardiovascular status: acceptable and within patient's normal range Hydration status: adequate Nausea/Vomiting: none Pain management: adequate Post-Op Assessment: patient tolerated procedure well with no complications Disposition: inpatient Anesthesia Complications: No apparent anesthesia complications nesthesia Procedure Notes - Guido Hendricks MD - 06/30/2021 0812 EDTAssociated Order(s): Spinal Block Spinal Block Patient location during procedure: OR Staffing Performed: anesthesiologist Anesthesiologist: Guido Hendricks MD Preanesthetic Checklist Completed: patient identified, IV checked, site marked, risks and benefits discussed, surgical consent, monitors and equipment checked, pre-op evaluation and timeout performed Spinal Block Patient position: sitting Prep: ChloraPrep, site prepped and draped, skin prep agent completely dried prior to procedure, sterile gloves, mask used and subcutaneous lidocaine Patient monitoring: heart rate and continuous pulse ox Approach: midline Location: L3-4 Injection technique: single-shot Needle Needle type: Jc Needle gauge: 25 G Needle length: 3.5 in Assessment Sensory level: T8 Reason for block: surgical anesthesia nesthesia Preprocedure Evaluation - Guido Hendricks MD - 06/30/2021 0750 EDT Anesthesia Preprocedure Evaluation Patient Medical History, including Anesthesia History reviewed. Chart and Nursing Notes reviewed, including NPO status and Medication History. Additional ROS/History Findings: No current facility-administered medications on file prior to encounter. Current Outpatient Medications on File Prior to Encounter Medication Sig Dispense Refill ??? acetaminophen/diphenhydramine (TYLENOL PM ORAL) Take 1 Tab by mouth at bedtime. ??? ascorbic acid, vitamin C, (VITAMIN C) 500 mg tablet 1 tab(s) orally once a day ??? Calcium Carbonate 600 mg calcium (1,500 mg) tablet 2 tab(s) orally twice a day ??? celecoxib (CELEBREX) 200 mg capsule Take 200 mg by mouth 2 times daily. ??? cyclobenzaprine (FLEXERIL) 10 mg tablet [...] needed. (Patient not taking:Reported on 06/17/2021) ??? multivitamin capsule 1 cap(s) orally twice a day ??? omeprazole (PRILOSEC) 20 mg capsule ??? oxyCODONE-acetaminophen (PERCOCET) 5-325 mg per tablet Take 1 Tab by mouth 2 times daily. No current facility-administered medications for this encounter. Current Outpatient Medications Medication ??? acetaminophen/diphenhydramine (TYLENOL PM ORAL) ??? amLODIPine (NORVASC) 5 mg tablet ??? ascorbic acid, vitamin C, (VITAMIN C) 500 mg tablet ??? Calcium Carbonate 600 mg calcium (1,500 mg) tablet ??? celecoxib (CELEBREX) 200 mg capsule ??? cyanocobalamin (VITAMIN B-12) 500 mcg tablet ??? cyclobenzaprine (FLEXERIL) 10 mg tablet ??? diclofenac sodium 1 % gel ??? DULoxetine (CYMBALTA) 60 mg capsule ??? ergocalciferol (DRISDOL; VITAMIN D2) 1,250 mcg (50,000 unit) capsule ??? ferrous sulfate 325 mg (65 mg iron) tablet ??? gabapentin (NEURONTIN) 300 mg capsule ??? loperamide (IMODIUM A-D) 2 mg tablet ??? methocarbamoL (ROBAXIN) 500 mg tablet ??? multivitamin capsule ??? omeprazole (PRILOSEC) 20 mg capsule ??? oxyCODONE-acetaminophen (PERCOCET) 5-325 mg per tablet ??? OZEMPIC 1 mg/dose (4 mg/3 mL) pen injector ??? OZEMPIC subcutaneous pen No Known Allergies Past Medical History: Diagnosis Date ??? Bowel disease Relevant Problems Neuro/Psych (+) History of DVT (deep vein thrombosis) Past Surgical History: Procedure Laterality Date ??? CARPAL TUNNEL RELEASE Bilateral 2009 ??? FOOT SURGERY Left 2010 plantar fasciitis ??? GASTRIC BYPASS SURGERY 2016 [facility] ??? KNEE SURGERY Right 04/09/2019 hardware removal ??? KNEE SURGERY Right 2007 knee tibial osteotomy/ microfracture ??? KNEE SURGERY Left 2008 arthroscopy/ microfracture ??? KNEE SURGERY Bilateral 1990 arthroscopy-osteochondritis dessicians ??? RIB RESECTION 2006 partial rib removal Past Anesthetics [] No history of complications from anesthesia [] No anesthesia records on file []No family history of allergic reactions to anesthesia Review of Systems Constitutional: Negative. HENT: Negative. Eyes: Negative. Respiratory: Negative. Cardiovascular: Negative. Gastrointestinal: Negative. Genitourinary: Negative. Musculoskeletal: Positive for joint pain. Skin: Negative. Neurological: Negative. Endo/Heme/Allergies: Negative. Psychiatric/Behavioral: Negative. All other systems reviewed and are negative. SOCIAL HISTORY: Social History Tobacco Use Smoking Status Never Smoker Smokeless Tobacco Never Used Social History Substance and Sexual Activity Drug Use Not on file Comment: 10 Social History Substance and Sexual Activity Alcohol Use Yes No results found for: GLUCOSEPOC Lab Results Component Value Date HGB 11.1 11/21/2020 MCV 89.9 11/21/2020 PLT 309 11/21/2020 Lab Results Component Value Date NA 137 04/25/2020 K 4.0 04/25/2020 CL 100 04/25/2020 CO2 28 04/25/2020 Lab Results Component Value Date BUN 15 04/25/2020 Lab Results Component Value Date CREATININE 0.7 04/25/2020 No results found for: INR, PROTIME No results found for: PTT UPT: [] Patient declines test No results found for: PREGUR COVID: [] None on file No results found for: COVIDUV Blood Type: No results found for: ABO, LABRH, LABANTI, SPECEXP EKG: [] N/A ECHO: [] N/A Cardiac Stress: [] N/A There were no vitals taken for this visit. Pulse From Oximetry: -- Physical Exam Airway Mallampati: II TM distance: >3 FB Neck ROM: full Cardiovascular - normal exam Rhythm: regular Rate: normal Dental - normal exam Pulmonary - normal exam Breath sounds clear to auscultation Abdominal (+) obese Anesthesia Plan ASA 2 Anesthesia Type - neuraxial block - via spinal Anesthesia plan and risks discussed. Informed consent obtained from patient. Specific risks discussed were bleeding, incomplete block, infection, nerve damage, nausea and vomiting. The preoperative history and physical which was performed within 30 days of this procedure, has beenreviewed and the clinically appropriate elements of the physical examination have been repeated. There are no changes to the documented history and physical or, if so, such changes are documented in this note documented in this encounter Plan of Treatment Upcoming Encounters Date Type Specialty Care Team Description 01/08/2022 Office Visit Orthopedic Surgery Derrell Baig MD [address] [address] (Wo rk) documented as of this encounter Procedures Procedure Name Priority Date/Time Associated Comments Diagnosis ANESTHESIA SPINAL Routine 06/30/2021 8:12 EDT Res ults for this BLOCK procedure are i n the results section. documented in this encounter Results Spinal Block (06/30/2021 8:12 EDT) Narrative [facility]INT [facility] - 06/30/2021 8:12 ED T Guido Hendricks MD ? 06/30/2021 ??8:13 Spinal Block Patient location during procedure: OR Staffing Performed: anesthesiologist Anesthesiologist: Guido Hendricks MD Preanesthetic Checklist Completed: patient identified, IV checke d, site marked, risks and benefits discussed, surgical consent, monitors an d equipment checked, pre-op evaluation and timeout performed Spinal Block Patient position: sitting Prep: ChloraPrep, site prepped and drape d, skin prep agent completely dried prior to procedure, sterile gloves , mask used and subcutaneous lidocaine Patient monitoring: heart rate and cecilia nuous pulse ox Approach: midline Location: L3-4 Injection technique: single-shot Needle Needle type: Jc Needle gauge: 25 G Needle length: 3.5 in Assessment Sensory level: T8 Reason for block: surgical anesthesia Performing Organization Address City/State/ZIP Code Phon e Number [facility] documented in this encounter Visit Diagnoses Not on filedocumented in this encounter Administered Medications Inactive Administered Medications - up to 3 most recent administrations Medication Order MAR Action Action Date Dose Rate Site ceFAZolin in dextrose 5 % (ANCEF) IVPB Given 06/30/2021 8:05 EDT 2 g DUPLEX 2 g 2 g, intravenous, Administer over 30 Minutes, PRE-OP ONCE, 1 dose, On Tue06/30/21 at 0700, Type of Therapy: Prophylaxis, Suspected Indication (Select all that apply): Surgical prophylaxis, Routine, Preprocedure lactated ringers (LR) infusion New Bag 06/30/2021 7:55 EDT intravenous, FA IP EQF CONTINUOUS PRN FOR ONE STEP MEDS, Starting on Tue06/30/21 at 0755, Until Tue06/30/21 at 1119, Routine, Anesthesia Intraprocedure lidocaine (PF) 20 mg/mL (2 %) injection Given 06/30/2021 8:08 EDT 100 mg other, PRN, Starting on Tue06/30/21 at 0808, Until Tue06/30/21 at 1119, Routine, Anesthesia Intraprocedure midazolam (PF) (VERSED) injection Given 06/30/2021 7:57 EDT 2 mg intravenous, PRN, Starting on Tue06/30/21 at 0757, Until Tue06/30/21 at 1119, Routine, Anesthesia Intraprocedure ondansetron (PF) (ZOFRAN) injection Given 06/30/2021 10:38 EDT 4 mg intravenous, PRN, Starting on Tue06/30/21 at 1038, Until Tue06/30/21 at 1119, Routine, Anesthesia Intraprocedure propOFol (DIPRIVAN) injection Rate Change 06/30/2021 10:40 100 mcg/kg/min 62.34 mL/hr intravenous, FA IP EQF EDT CONTINUOUS PRN FOR ONE STEP MEDS, Starting on Tue06/30/21 at 0805, Until Tue06/30/21 at 1119, Routine, Anesthesia Intraprocedure Given 06/30/2021 8:11 EDT 50 mg Given 06/30/2021 8:08 EDT 50 mg tranexamic acid (CYKLOKAPRON) injection Given 06/30/2021 10:44 EDT 1,000 mg intravenous, PRN, Starting on Tue06/30/21 at 0831, Until Tue06/30/21 at 1119, Routine, Anesthesia Intraprocedure Given 06/30/2021 8:31 EDT 1,000 mg documented in this encounter Care Teams Slat Basket Maker Helper Machine Relationship Specialty Start Date End Date Toyin Frias NP PCP - General 05/07/[address] [place] [phone] documented as of this encounter
--- OUTSIDE RECORDS SUMMARY | 2021-10-09 00:07 | XMS_ITS | Encounter Summary ---
:1975 Author Organization [facility] Address [address] [place] [address] Care Team Providers Name Role Phone Soraya Lovett MD Primary Care Provider Reason for Visit Reason Comments Follow-up Encounter Details Date Type Department Care Team Description 03/18/2021 Office Visit [facility] - Reggie Baig Primary osteoarthritis of left knee (Primary Dx); [facility]MD Primary osteoarthritis of right knee Sport Medicine [address], [facility] ad [address] [place] [address] [place], [place] [address] (Wo rk) Social History Tobacco Use Types [...] - - Temperature 36.7 ??C (98.1 ??F) 03/18/2021 1540 EST Respiratory Rate - - Oxygen Saturation [...] encounter Progress Notes Reggie Baig MD - 03/18/2021 1530 EST PROBLEM: Bilateral knee SUBJECTIVE: Seng Muse is a 45 y.o. female who is here today for follow up. Seng presents today for follow up of her left knee. Last seen 01/23/21 and had a steroid injection and aspiration. We did discuss at her last visit possible arthroplasty for her right knee which has a severe valgus deformity and has had previous surgery including ACL reconstruction. She says that the injection in her left knee helped quite a bit. Pain has started to recur. She is wondering about a repeat injection. Of note, she has had previous viscosupplementation in both knees but nothing since early 2019. The past medical, family and social history have been reviewed in the patient chart. ROS OBJECTIVE: Temp 36.7 ??C (98.1 ??F) On physical exam, the patient is found to be a pleasant and cooperative female. In no acute distress. Psych: She is alert and oriented x 3 with normal affect. Constitutional: She is well-developed and in no significant distress. Eyes: Sclerae clear. Resp: Breathing is regular and nonlabored without audible wheezing. Skin: warm and dry Msk: Limited exam today of both knees. She has scars and persistent severe valgus around the right knee. Left knee has mild valgus. No unusual erythema, ecchymosis, or atrophy of both knees. Range of motionis good. Moderate limp. ASSESSMENT: 1. Primary osteoarthritis of left knee 2. Primary osteoarthritis of right knee PLAN: I explained that I think it is too early to repeat the steroid injection to her left knee which she is hoping we can do today. Is only been a couple of months. I think if she wishes to have repeat steroid injections, she should wait about 4 months between injections. However, can certainly consider viscosupplementation. Given that it is starting to year and we are not sure what insurance regulations might be, I have recommended that we get prior authorization before proceeding with injection for herleft knee. I expect that this should not be a problem and hopefully we can do the injection a week from Tuesday. We also talked about radiofrequency ablation for her left knee. We will look into this before her visit. She would like to start planning her right knee replacement. She feels this does need to be done. Luma talked about her young age and the fact that she would require revision surgery sometime in the future. She understands but would like to proceed. I did have her meet with our chief engineering division to start talking about possible dates. Follow up for left knee Monovisc injection This note was prepared using voice recognition software and the EMR. There may be inadvertent errorsand omissions. Reggie Baig MD 03/18/2021 documented in this encounter Plan of Treatment Upcoming Encounters Date Type Specialty Care Team Description 01/08/2022 Office Visit Orthopedic Surgery Derrell Baig MD [facility] [address] [address] (Wo rk) documented as of this encounter Visit Diagnoses Diagnosis Primary osteoarthritis of left knee - Pr imary Primary localized osteoarthrosis, lower leg Primary osteoarthritis of right knee Primary localized osteoarthrosis, lower leg documented in this encounter Orders Case Request Count Last Ordered Date First Ordered Date CASE REQUEST OPERATING ROOM 1 03/18/2021 documented in this encounter Care Teams Lab Specialist Relationship Specialty Start Date End Date Soraya Lovett MD PCP - General 12/12/13 05/06/21 [address] [place] [address] documented as of this encounter
--- OUTSIDE RECORDS SUMMARY | 2021-10-09 00:07 | XMS_ITS | Encounter Summary ---
:1975 Author Organization [facility] Address [address] [place] [address] Care Team Providers Name Role Phone Toyin Frias GRAVITY METER OBSERVER Primary Care Provider Encounter Details Date Type Department Care Team Description 06/11/2021 Results Only [facility] Toyin Frias , MARIUSZ Laboratory Services - Main [address] [place], [place] [address] [facility] [id number] [place] [address] [phone] Social History Tobacco Use Types Packs/Day Years [...] Office Visit Orthopedic Surgery Derrell Baig MD [address] [place] [id number] (Wo rk) documented as of this encounter Procedures Procedure Name Priority Date/Time Associated Diagnosis Comme nts HEMOGLOBIN A1C Routine 06/11/2021 6:29 EDT Result s for this procedure are i n the results section . documented in this encounter Results HEMOGLOBIN A1C (06/11/2021 6:29 EDT) Pathologist Sig nature HgB A1C% 4.8 4.0 - 6.0 % [facility] Average Calculated 80 60 - 115 mg/dL [facility] Specimen Performing Organization Address City/State/ZIP Code Phon e Number [facility] [address] [place], [place] [address] documented in this encounter Visit Diagnoses Not on filedocumented in this encounter Care Teams Craft Coordinator Relationship Specialty Start Date End Date Toyin Frias, MARIUSZ PCP - General 05/07/21 [address] [place] [address] documented as of this encounter
--- OUTSIDE RECORDS SUMMARY | 2021-10-09 00:07 | XMS_ITS | Encounter Summary ---
:1975 Author Organization [facility] Address [address] [place] [address] Care Team Providers Name Role Phone Soraya Lovett MD Primary Care Provider Reason for Visit Reason Comments Pain Pain Encounter Details Date Type Department Care Team Description 01/23/2021 Office Visit [facility] - Reggie Baig Primary osteoarthritis of left knee (Primary Dx); [facility] Orthopedics & MMD Primary osteoarthritis of right knee Sport Medicine [address], [place] [address] [place] [address] [place], [place] [id number] (Wo rk) Social History Tobacco Use Types [...] Taken Comments Blood Pressure - - Pulse 108 01/23/2021 0830 EST Temperature 36.5 ??C (97.7 ??F) 01/23/2021 0830 EST Respiratory Rate - - Oxygen Saturation 99% 01/23/2021 0830 EST Inhaled Oxygen Concentration - - Weight 104.3 kg (230 lb) 01/23/2021 0830 EST Height 167.6 cm (5' 6) 01/23/2021 0830 EST Body Mass Index 37.12 01/23/2021 0830 EST documented in this encounter Functional Status [...] encounter Progress Notes Reggie Baig MD - 01/23/2021 0815 ESTAssociated Order(s): Large Joint Injection/Arthrocentesis: L kneePost-Procedure Diagnose(s): Primary osteoarthritis of left knee [facility] Orthopedics & Sports Medicine 01/24/2021 CHIEF COMPLAINT: Chief Complaint Patient presents with ??? Left Knee - Pain ??? Right Knee - Pain SUBJECTIVE: Seng Muse is a 45 y.o. female who presents today for follow up evaluation of her bilateral knee pain. She would like to discuss TKR. She has been seen here for the past 3+ years. She originally presented for right knee pain . Seng had a right HTO in 2007 at [facility]. Eventually right knee became much more painful. She has had temporary relief with visco- supplementation in the pastbut injections have become less helpful. She did have the hardware removed from her right knee. She Is starting to think about right knee replacement. Today her left knee is more of a problem. Pain andswelling have been intermittent on the left but can be quite severe. Today left is very swollen and painful. She is also followed by spine for chronic LBP with sciatica. The past medical, family and social history have been reviewed in the patient chart. Past Medical History: Diagnosis Date ??? Bowel disease Social History Tobacco Use ??? Smoking status: Never Smoker ??? Smokeless tobacco: Never Used Substance Use Topics ??? Alcohol use: Yes Past Surgical History: Procedure Laterality Date ??? CARPAL TUNNEL RELEASE Bilateral 2009 ??? FOOT SURGERY Left 2010 plantar fasciitis ??? GASTRIC BYPASS SURGERY 2016 [facility] ??? KNEE SURGERY Right 04/09/2019 hardware removal ??? KNEE SURGERY Right 2007 knee tibial osteotomy/ microfracture ??? KNEE SURGERY Left 2009 arthroscopy/ microfracture ??? KNEE SURGERY Bilateral 1990 arthroscopy-osteochondritis dessicians ??? RIB RESECTION 2005 partial rib removal No Known Allergies Medications Prior to Today's Visit Medication Sig ??? acetaminophen/diphenhydramine (TYLENOL PM ORAL) Take 1 [...] mg by mouth daily. ??? gabapentin (NEURONTIN) 100 mg capsule 200 mg 2 times daily. (Patient not taking: Reported on 01/23/2021) ??? gabapentin (NEURONTIN) 300 mg capsule TAKE 1 TO 3 CAPSULES ORALLY 3 TIMES A DAY FOR CHRONIC PAIN ??? loperamide (IMODIUM A-D) 2 mg tablet Take by mouth 4 times daily as needed. ??? losartan-hydrochlorothiazide (HYZAAR) 100-12.5 mg per tablet Take by mouth daily. 100/25 mg ??? methylPREDNISolone (MEDROL, HOLLY,) 4 mg tablet follow package directions (Patient not taking: Reported on 02/20/2020) ??? multivitamin capsule 1 cap(s) orally twice a day ??? nortriptyline (PAMELOR) 10 mg capsule TAKE 1 TO 4 CAPSULES BY MOUTH AT BEDTIME FOR SLEEP AND PAIN (Patient not taking: Reported on 01/23/2021) ??? omeprazole (PRILOSEC) 20 mg capsule ??? oxyCODONE-acetaminophen (PERCOCET) 5-325 mg per tablet Take 1 Tab by mouth 2 times daily. No facility-administered medications prior to visit. OBJECTIVE: On physical exam, the patient is found to be a pleasant and cooperative female. In no acute distress. Psych: She is alert and oriented x 3 with normal affect. Constitutional: She is well-developed and in no significant distress. Eyes: Sclerae clear. Resp: Breathing is regular and nonlabored without audible wheezing. Skin: warm and dry Msk: Right knee has scars from her previous surgery. She has significant valgus deformity. She has mild swelling. She has full extension and can flex beyond 100 degrees. Left knee has a 3+ effusion, noerythema or ecchymosis. She has mild tenderness. She has full extension and flexion to about 100 degrees. Knee feels tight. Neuro: Sensation light touch. BLE DIAGNOSTICS: Radiographs of both knees were ordered and taken in the office today. These were independently reviewed by me. AP standing, PA flexion standing, lateral and sunrise views. Right knee with severe DJD and gross valgus malalignment. Left knee has moderate DJD with medial joint narrowing. ASSESSMENT: 1. Primary osteoarthritis of left knee - XR KNEE LEFT 4 OR MORE VIEWS; Future 2. Primary osteoarthritis of right knee - XR KNEE RIGHT 4 OR MORE VIEWS PLAN: We discussed treatments for her knee arthritis. Seng is ready to think about right knee replacement.Despite her young age, this is probably the best option for her right knee. She has already developed a severe valgus deformity. Ms. Muse will think about this and will contact me with questions or ifshe would like to proceed with surgery. She had some questions about whether the left knee should also be replaced. These are not black and white issues. Given her age, I would recommend she delay replacement as long as possible. Because of her severe pain on the left, which is acute, I did recommend she have the knee aspirated and we couldtry a steroid injection. Ms. Muse agreed and we did proceed. Procedure: Large Joint Injection/Arthrocentesis: L knee on 01/23/2021 8:15 Details: 20 G needle, lateral approach Medications: 6 mg betamethasone 6 mg/mL; 4 mL lidocaine (PF) 10 mg/mL (1 %) Aspirate: 160 mL clear and yellow Outcome: tolerated well, no immediate complications Procedure, treatment alternatives, risks and benefits explained, specific risks discussed. Consent was given by the patient. Immediately prior to procedure a time out was called to verify the correct patient, procedure, equipment, network support technician and site/side marked as required. Patient was prepped anddraped in the usual sterile fashion. Follow up PRN With leg alignment xrays This note was prepared using voice recognition software and the EMR. There may be inadvertent errorsand omissions. Reggie Baig MD 01/24/2021 documented in this encounter Plan of Treatment Upcoming Encounters Date Type Specialty Care Team Description 01/08/2022 Office Visit [place] [address] [place] [address] (Wo rk) documented as of this encounter Procedures Procedure Name Priority Date/Time Associated Diagnosis Comme nts XR KNEE RIGHT 4 OR Routine 01/23/2021 8:53 Primary osteoarthri tis Results for this MORE VIEWS EST of right knee procedure are in the results section. LARGE JOINT Routine 01/23/2021 8:15 Primary osteoarthritis Re sults for this INJECTION/ARTHROCE EST of left knee procedure are in NTESIS the results section. documented in this encounter Results XR KNEE LEFT 4 OR MORE VIEWS (01/23/2021 8:54 EST) Anatomical Region Laterality Modality Lower Extremities Left Computed Radiography Specimen Impressions [facility] - 01/23/2021 9:35 EST Severe bilateral knee osteoarthrosis, as detailed above. Narrative [facility] - 01/23/2021 9:35 EST XR KNEE RIGHT 4 OR MORE VIEWS XR KNEE LEFT 4 OR MORE VIEWS ?? Signs and Symptoms/Comments: Right knee pain. Left knee pain. Comparison: Radiographs on 09/22/2016. MR right knee on 10/11/2016. Findings: Right Knee: Standing AP, PA flexion, lat eral and sunrise views were performed. Bones: Old healed proximal tibial fractu re, now status post hardware removal. No acute fracture or malalignment identified. Chronic prominent valgus angulation. Degenerative changes: Severe tricompartm ental osteoarthrosis, including ayhj-rm-nhvb joint space narrowing laterally with associated prominent valgus angulation. Degenerative changes are similar to 2017. Soft tissues: Small suprapatellar joint effusion. Chronic ovoid osteochondral loose bodies in the posterior recess, measuring up to 10 mm. Left Knee: Standing AP, PA flexion, late ral and sunrise views were performed. Bones: No acute fracture or malalignment . Mild lateral subluxation of the tibial plateau with respect to the distal femur, likely degenerative, similar to 2016. Degenerative changes: Severe tricompartm ental osteoarthrosis, including near pnse-df-gqgu joint space narrowing medially. Soft tissues: Moderate suprapatellar mary alice nt effusion. Ovoid 2.7 cm osteochondral loose body in the posterior recess, similar to 2016. Chronic small osteochondral loose body versus fragmented osteophyte along the patellar superior pole. Procedure Note Nicola Miramontes MD - 01/23/2021 XR KNEE RIGHT 4 OR MORE VIEWS XR KNEE LEFT 4 OR MORE VIEWS Signs and Symptoms/Comments: Right knee pain. Left knee pain. Comparison: Radiographs on 09/22/2016. MR right knee on 10/11/2016. Findings: Right Knee: Standing AP, PA flexion, lat eral and sunrise views were performed. Bones: Old healed proximal tibial fractu re, now status post hardware removal. No acute fracture or malalignment identified. Chronic prominent valgus angulation. Degenerative changes: Severe tricompartm ental osteoarthrosis, including vtyo-zf-ekwk joint space narrowing laterally with associated prominent valgus angulation. Degenerative changes are similar to 2017. Soft tissues: Small suprapatellar joint effusion. Chronic ovoid osteochondral loose bodies in the posterior recess, measuring up to 10 mm. Left Knee: Standing AP, PA flexion, late ral and sunrise views were performed. Bones: No acute fracture or malalignment . Mild lateral subluxation of the tibial plateau with respect to the distal femur, likely degenerative, similar to 2016. Degenerative changes: Severe tricompartm ental osteoarthrosis, including near psra-vu-lnut joint space narrowing medially. Soft tissues: Moderate suprapatellar mary alice nt effusion. Ovoid 2.7 cm osteochondral loose body in the posterior recess, similar to 2016. Chronic small osteochondral loose body versus fragmented osteophyte along the patellar superior pole. IMPRESSION Severe bilateral knee osteoarthrosis, as detailed above. Performing Organization Address City/State/ZIP Code Phon e Number [facility] XR KNEE RIGHT 4 OR MORE VIEWS (01/23/2021 8:53 EST) Anatomical Region Laterality Modality Lower Extremities Right Computed Radiography Specimen Impressions [facility] - 01/23/2021 9:35 EST Severe bilateral knee osteoarthrosis, as detailed above. Narrative [facility] - 01/23/2021 9:35 EST XR KNEE RIGHT 4 OR MORE VIEWS XR KNEE LEFT 4 OR MORE VIEWS ?? Signs and Symptoms/Comments: Right knee pain. Left knee pain. Comparison: Radiographs on 09/22/2016. MR right knee on 10/11/2016. Findings: Right Knee: Standing AP, PA flexion, lat eral and sunrise views were performed. Bones: Old healed proximal tibial fractu re, now status post hardware removal. No acute fracture or malalignment identified. Chronic prominent valgus angulation. Degenerative changes: Severe tricompartm ental osteoarthrosis, including sjum-lz-aoar joint space narrowing laterally with associated prominent valgus angulation. Degenerative changes are similar to 2017. Soft tissues: Small suprapatellar joint effusion. Chronic ovoid osteochondral loose bodies in the posterior recess, measuring up to 10 mm. Left Knee: Standing AP, PA flexion, late ral and sunrise views were performed. Bones: No acute fracture or malalignment . Mild lateral subluxation of the tibial plateau with respect to the distal femur, likely degenerative, similar to 2016. Degenerative changes: Severe tricompartm ental osteoarthrosis, including near fxti-wf-ienx joint space narrowing medially. Soft tissues: Moderate suprapatellar mary alice nt effusion. Ovoid 2.7 cm osteochondral loose body in the posterior recess, similar to 2016. Chronic small osteochondral loose body versus fragmented osteophyte along the patellar superior pole. Procedure Note Nicola Miramontes MD - 01/23/2021 XR KNEE RIGHT 4 OR MORE VIEWS XR KNEE LEFT 4 OR MORE VIEWS Signs and Symptoms/Comments: Right knee pain. Left knee pain. Comparison: Radiographs on 09/22/2016. MR right knee on 10/11/2016. Findings: Right Knee: Standing AP, PA flexion, lat eral and sunrise views were performed. Bones: Old healed proximal tibial fractu re, now status post hardware removal. No acute fracture or malalignment identified. Chronic prominent valgus angulation. Degenerative changes: Severe tricompartm ental osteoarthrosis, including gzji-th-uzib joint space narrowing laterally with associated prominent valgus angulation. Degenerative changes are similar to 2017. Soft tissues: Small suprapatellar joint effusion. Chronic ovoid osteochondral loose bodies in the posterior recess, measuring up to 10 mm. Left Knee: Standing AP, PA flexion, late ral and sunrise views were performed. Bones: No acute fracture or malalignment . Mild lateral subluxation of the tibial plateau with respect to the distal femur, likely degenerative, similar to 2016. Degenerative changes: Severe tricompartm ental osteoarthrosis, including near puwl-bs-gmrn joint space narrowing medially. Soft tissues: Moderate suprapatellar mary alice nt effusion. Ovoid 2.7 cm osteochondral loose body in the posterior recess, similar to 2016. Chronic small osteochondral loose body versus fragmented osteophyte along the patellar superior pole. IMPRESSION Severe bilateral knee osteoarthrosis, as detailed above. Performing Organization Address City/State/ZIP Code Phon e Number [facility] [place] ARTHROCENTESIS ASPIR&/INJ MAJOR JT/BURSA W/O US (01/23/2021 8:15 EST) Narrative [facility] POINT OF CARE - 01/23/2021 8:15 Reggie Moraes MD ? 01/24/2021 10:47 Large Joint Injection/Arthrocentesis: L knee on 01/23/2021 8:15 Details: 20 G needle, lateral approach Medications: 6 mg betamethasone 6 mg/mL; 4 mL lidocaine (PF) 10 mg/mL (1 %) Aspirate: 160 mL clear and yellow Outcome: tolerated well, no immediate co mplications Procedure, treatment alternatives, risks and benefits explained, specific risks discussed. Consent was given by th e patient. Immediately prior to procedure a time out was called to verif y the correct patient, procedure, equipment, network support technician and site/side m arked as required. Patient was prepped and draped in the usual sterile fashion. Performing Organization Address City/State/ZIP Code Phon e Number [facility] POINT OF CARE documented in this encounter Visit Diagnoses Diagnosis Primary osteoarthritis of left knee - Pr imary Primary localized osteoarthrosis, lower leg Primary osteoarthritis of right knee Primary localized osteoarthrosis, lower leg documented in this encounter Administered Medications Inactive Administered Medications - up to 3 most recent administrations Medication Order MAR Action Action Date Dose Rate Site betamethasone (CELESTONE SOLUSPAN) 6 Given 01/23/2021 8:15 EST 6 mg mg/mL injection 6 mg 6 mg, intra-articular, Once PRN Procedure, 1 dose, Starting on Tue01/23/21 at 0815, Until Tue01/23/21 at 0815, Routine lidocaine (PF) 10 mg/mL (1 %) injection 4 mL Given 01/23/2021 8:15 EST 4 mL 4 mL, other, Once PRN Procedure, 1 dose, Starting on Tue01/23/21 at 0815, Until Tue01/23/21 at 0815, Routine documented in this encounter Care Teams Sample Paster Relationship Specialty Start Date End Date Soraya Lovett MD PCP - General 12/12/13 05/06/21 [address] [place] [address] documented as of this encounter
--- OUTSIDE RECORDS SUMMARY | 2021-10-09 00:07 | XMS_ITS | Encounter Summary ---
:1975 Author Organization [facility] Address [address] [place] [address] Care Team Providers Name Role Phone Toyin Frias NP Primary Care Provider Reason for Visit Reason Comments Back Pain Encounter Details Date Type Department Care Team Description 05/07/2021 Office Visit [facility] - Gail Gilmore Fa cet arthropathy, lumbar (Primary Dx); [facility] [place] & RADIO TECHNICIAN DDD (degenerative disc disease), lumbar; Spine Medicine [address] Chronic bilateral low back pain with myranda ateral sciatica [address], [place], [place] [address] [address] [place] [address] [phone] Social History Tobacco Use Types Packs/Day Years [...] Sign Reading Time Taken Comments Blood Pressure 152/84 05/07/2021 1525 EST Pulse 83 05/07/2021 1525 EST Temperature 36.1 ??C (97 ??F) 05/07/2021 1525 EST Respiratory Rate - - Oxygen Saturation 97% 05/07/2021 1525 EST Inhaled Oxygen Concentration - - Weight - [...] making decisions? documented as of this encounter Ordered Prescriptions Prescription Sig Dispensed Refills Start Date End Date methocarbamoL (ROBAXIN) 500 Take 1 Tablet by 90 Tablet 0 mg tablet mouth 3 times daily as needed for Muscle Spasms. documented in this encounter Progress Notes Gail Gilmore, MARIUSZ - 05/07/2021 1515 EST Medical Decision Making Seng is a pleasant 45 y.o. female seen in evaluation for her acute thoracic pain that has since improved. She is scheduled for a right total knee replacement 06/30/2021 and subsequently for medial branch block for progression of radiofrequency ablation starting on 07/31/2021. It is fortunate that the thoracic discomfort has spontaneously improved, it is unlikely that at this point any interventional injections could be completed in a reasonable amount of time prior to her total knee replacement. For now, she will follow-up with me as needed and keep me updated on her status. Otherwise, I will see ezekiel after the ablation is completed. I spent a total of 30 minutes on the date of this encounter meeting with the patient and reviewing documentation/coordinating care as described in this note. No procedure was performed at today's visit. Imaging/Test Review No new imaging was ordered for review today Diagnosis 1. Facet arthropathy, lumbar XR LUMBAR SPINE 4 OR MORE VIEWS 2. DDD (degenerative disc disease), lumbar XR LUMBAR SPINE 4 OR MORE VIEWS 3. Chronic bilateral low back pain with bilateral sciatica XR LUMBAR SPINE 4 OR MORE VIEWS Plan 1. Follow-up with me as discussed above-after knee replacement and RFA HPI Seng is a 45 y.o. female last seen by me on 04/06/2021 and at that time, she was seen for chief complaint of left-sided lower back pain. We discussed at the last visit that it would not be unreasonable to move forward with medial branch blocks and progression of radiofrequency ablation. She has experienced genicular nerve blocks for her knees in the past and was amenable to moving forward with the RFAfor her lower back. Subsequently, an order was placed. She is scheduled to begin this process in Julyafter her right total knee replacement. More recently, she reached out to our clinic reporting increased pain in her thoracic region. She is here today to discuss this progress to pain. The patient reports that since she made the appointment, her thoracic discomfort has improved. She is being careful with her activities and does limit her lifting carrying no more than a couple of gallons of water at a time. When she was seen at [facility] on 04/27/2021, they did give her methocarbamol but she has chronically used Flexeril which she finds more helpful. She subsequently began utilizing the methocarbamol during the day and the Flexeril at bedtime and found this combination more helpful. The patient's medical profile was reviewed and [...] Tylenol, ibuprofen, Percocet, Medrol Dosepak Other: None ?? Injections: 1. Left L4-S1 facet injections (05/09/2020)-more than 50% improvement 2. Translaminar L4-5 IDALMIS (10/30/2020)-50 to 60% improvement ROS A five-point review of systems was completed today and of note, pertinent positives and negatives are indicated in the HPI Physical Examination BP (!) 152/84 Pulse 83 Temp 36.1 ??C (97 ??F) SpO2 97% Pain Ratin General: Pleasant, cooperative, mood and affect are appropriate. Neuro: Alert and oriented to person, place, time and purpose. Posture:Upright Gait: Antalgic favoring the right lower extremity where there is a significant valgus deformity of the knee CC: Primary Care Provider: Toyin Frias NP [address] [place] [phone] Referring Provider: Toyin Kopecky, RADIO TECHNICIAN DRAGON DICTATION WAS USED FOR NOTE COMPLETION. PLEASE EXCUSE ALL MISSPELLINGS AND PUNCTUATION ERRORS. DUONG Milligan 05/07/21 Orthopedic Spine and Neurosurgery documented in this encounter Plan of Treatment Upcoming Encounters Date Type Specialty Care Team Description 01/08/2022 Office Visit Orthopedic Surgery Derrell Baig MD [address] [place] [address] (Wo rk) documented as of this encounter Procedures Procedure Name Priority Date/Time Associated Diagnosis Comme nts XR LUMBAR SPINE 4+ Routine 05/07/2021 15:47 Facet arthropathy, Results for this VIEWS EST lumbar procedure are in DDD (degenerative the result s disc disease), section. lumbar Chronic bilateral low back pain with bilateral sciatica documented in this encounter Results XR LUMBAR SPINE 4 OR MORE VIEWS (05/07/2021 15:47 EST) Anatomical Region Laterality Modality Computed Radiography Specimen Impressions [facility] - 05/07/2021 16:03 EST 1. Degenerative spondylosis and scoliosis of the lumbar spine. 2. Osteoarthrosis of the sacroiliac join ts. Narrative [facility] - 05/07/2021 16:03 EST INDICATION: Lumbar pain. COMPARISON: Lumbar spine radiograph 01/17. TECHNIQUE: AP, lateral neutral and later al flexion and extension views were obtained. FINDINGS: There is a mild scoliosis of the lumbar spine. Degenerative disc disease and facet arthrosis is present throughout the lumbar spine. There is relatively limited movement between flexion and extension vi ews. No fracture or subluxation is ident ified. There is mild osteoarthritis within the sacroiliac joints. Procedure Note Reynaldo Bautista MD - 2 INDICATION: Lumbar pain. COMPARISON: Lumbar spine radiograph 01/17. TECHNIQUE: AP, lateral neutral and later al flexion and extension views were obtained. FINDINGS: There is a mild scoliosis of the lumbar spine. Degenerative disc disease and facet arthrosis is present throughout the lumbar spine. There is relatively limited movement between flexion and extension views. No fracture or subluxation is identified. T here is mild osteoarthritis within the sacroiliac joints. IMPRESSION 1. Degenerative spondylosis and scoliosi s of the lumbar spine. 2. Osteoarthrosis of the sacroiliac join ts. 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 documented as of this encounter Historical Medications This list may reflect changes made after this encounter. Medication Sig Dispensed Refills Start Date End Date methocarbamoL (ROBAXIN) 500 Take 500 mg by 0 05/07/2021 mg tablet mouth 2 times daily. added in this encounter Care Teams Latent Print Examiner Relationship Specialty Start Date End Date Toyin Frias NP PCP - General 05/07/21 [address] [place] [address] documented as of this encounter
--- OUTSIDE RECORDS SUMMARY | 2021-10-09 00:07 | XMS_ITS | Encounter Summary ---
:1975 Author Organization [facility] Address [address] [place] [address] Care Team Providers Name Role Phone Soraya Lovett MD Primary Care Provider Reason for Visit Reason Onset Date Comments Other 04/27/2021 Encounter Details Date Type Department Care Team Description 04/27/2021 Telephone [facility] Gail Archuleta, SENIOR STORAGE ADMINISTRATOR Other Orthopedics & Sport Medicine [address] [place] [address] [place], [place] [id number] [phone] Social History Tobacco Use Types Packs/Day Years [...] this encounter Miscellaneous Notes Telephone Encounter - Chantel Velasco - 04/28/2021 1251 EST Patient wants appt to be in person. elephone Encounter - Kaylee Ortiz - 04/28/2021 1029 EST Patient was scheduled yesterday for an in-person appointment, but I called her today and left a message to change that to a telemed. elephone Encounter - Pranav Geronimo MA - 04/28/2021 0851 EST Please call to schedule patient with SB for telemed next available appointment elephone Encounter - Gail Gilmore NP - 04/28/2021 0738 EST Go ahead and schedule a telemed, please elephone Encounter - Pranav Geronimo MA - 04/27/2021 1119 EST Seng called and LVM on spine nursing line stating that she was having an increase of her T-spine pain. Patient states that lifting her legs and ambulation causes intense pain. Patient would like a callto discuss options. No new injury or event specified documented in this encounter Plan of Treatment Upcoming Encounters Date Type Specialty Care Team Description 01/08/2022 Office Visit Orthopedic Surgery Derrell Baig MD [address] [facility] [address] [place] [address] (Wo rk) documented as of this encounter Visit Diagnoses Not on filedocumented in this encounter Care Teams Experimental Technician Relationship Specialty Start Date End Date Soraya Lovett MD PCP - General 12/12/13 05/06/21 [address] [place] [address] documented as of this encounter
--- OUTSIDE RECORDS SUMMARY | 2021-10-09 00:07 | XMS_ITS | Encounter Summary ---
:1975 Author Organization [facility] Address [address] [place] [address] Care Team Providers Name Role Phone Soraya Lovett MD Primary Care Provider Encounter Details Date Type Department Care Team Description 03/04/2021 Results Only [facility] Toyin Frias NP Laboratory Services - Main [address] [place], [place] [address] [facility] [address] [place] [address] [phone] Social History Tobacco Use Types Packs/Day Years [...] Office Visit Orthopedic Surgery Derrell Baig MD [address] [place] [phone] (Wo rk) documented as of this encounter Procedures Procedure Name Priority Date/Time Associated Diagnosis Comme nts DRUG SCREEN, URINE Routine 03/04/2021 9:30 EST Re sults for this - [facility] procedur e are in the results section. documented in this encounter Results (ABNORMAL) DRUG SCREEN, URINE - [facility] (03/04/2021 9:30 EST) Pathologist Sig nature Cannabinoids (THC) NEG NEGATIVE [facility] Opiates (OPI) NEG NEGATIVE [facility] Amphetamines (AMP) NEG NEGATIVE [facility] Cocaine (C0C) NEG NEGATIVE [facility] Phencyclidine (PCP) NEG NEGATIVE [facility] Tricyc Antidepressant (TCA) NEG NEGATIVE [facility] Barbituate (BAR) NEG NEGATIVE [facility] Methadone (MTD) NEG NEGATIVE [facility] Benzodiazepine (BZO) NEG NEGATIVE [facility] Propoxyphene (PPX) NEG NEGATIVE [facility] Methamphetamine (MAMP) NEG NEGATIVE [facility] Oxycodone (OXY) POS (A) NEGATIVE [facility] Specimen Performing Organization Address City/State/ZIP Code Phon e Number [facility] [address] [place] [address] documented in this encounter Visit Diagnoses Not on filedocumented in this encounter Care Teams Mechanical Engineering Officer Relationship Specialty Start Date End Date Soraya Lovett MD PCP - General 12/12/13 05/06/21 [address] [place], [place] [phone] documented as of this encounter
--- OUTSIDE RECORDS SUMMARY | 2021-10-09 00:07 | XMS_ITS | Encounter Summary ---
:1975 Author Organization [facility] Address [address] [place] [address] Care Team Providers Name Role Phone Soraya Lovett MD Primary Care Provider Reason for Visit Reason Onset Date Comments Medication Management 04/30/2021 Encounter Details Date Type Department Care Team Description 04/30/2021 Telephone [facility] - Erika Valverde edication Management [facility] - C, PA-C [place] [address] [place] [address] [address] [phone] [address] [place] [address] Social History Tobacco Use Types Packs/Day Years [...] Refills Start Date End Date methocarbamoL (ROBAXIN) Take 2 Tablets by 30 Tablet 0 04/3005/05/2021 500 mg tablet mouth 3 times daily for 5 days. documented in this encounter Miscellaneous Notes Telephone Encounter - Nancy Rojas RN - 04/30/2021 1621 EST Spoke with patient and advised. She verbalized understanding of not combing methocarbamol and flexeril. She also stated not taking the nortriptyline for one year Telephone Encounter - Betzy Bueno MD - 04/30/2021 1549 EST Please let Seng know that I have sent in 5 days worth of Methocarbamol at 1000 mg oral TID only as needed. She already has Cyclobenzaprine for bedtime, as well as Nortriptyline. elephone Encounter - Betzy Bueno MD - 04/30/2021 1547 EST Seng should not take Methocarbamol AND Cylobenzaprine at the same time. I will fill Methocarbamol 1000 mg oral 3 times daily for 5 days. To take as needed only. elephone Encounter - Nancy Rojas RN - 04/30/2021 1513 EST Spoke with patient and she is not out of methocarbamol yet. She received 5 day supply on 04/27/21 (2 tablets 4 times per day). She stated methocarbamol is helping. She is also taking 2 percocet during the day and 2 tylenol PM at night for pain control. Patient aware Express slurry mixer who examined her is not in today and another clinician will be consulted. Sending to [facility] Provider pool for guidance. Please send back to [facility] Nurse Pool for assistance and patient follow up if needed. elephone Encounter - Raysa Zapata - 04/30/2021 1340 EST Patient is asking for 5 more days of muscle relaxer because she can not get into the spine doctor before the . She uses the [facility] in [place]. documented in this encounter Plan of Treatment Upcoming Encounters Date Type Specialty Care Team Description 01/08/2022 Office Visit [place] [address] [place] [phone] (Wo rk) documented as of this encounter Visit Diagnoses Not on filedocumented in this encounter Discontinued Medications Medication Sig Discontinue Reason Start Date End Date methocarbamoL (ROBAXIN) Take 2 Tablets by Reorder 04/27/2021 04/30/2021 500 mg tablet mouth 4 times daily for 5 days. documented as of this encounter Care Teams Rescue Boat Operator Relationship Specialty Start Date End Date Soraya Lovett MD PCP - General 12/12/13 05/06/21 [address] [place] [address] documented as of this encounter
--- OUTSIDE RECORDS SUMMARY | 2021-10-09 00:07 | XMS_ITS | Encounter Summary ---
:1975 Author Organization [facility] Address [address] [place] [address] Care Team Providers Name Role Phone Toyin Frias BEHAVIORAL HEALTH ASSOCIATE Primary Care Provider Encounter Details Date Type Department Care Team Description 06/11/2021 Results Only [facility] Toyin Frias , MARIUSZ Laboratory Services - Main [address] [place], [place] [address] [facility] [address] [place] [address] [phone] Social History Tobacco Use Types Packs/Day Years [...] Visit Orthopedic Surgery Derrell Baig MD [address] [place] [phone] (Wo rk) documented as of this encounter Procedures Procedure Name Priority Date/Time Associated Diagnosis Comme nts LDL CHOLESTEROL Routine 06/11/2021 6:29 EDT Resul ts for this procedure are i n the results section. documented in this encounter Results (ABNORMAL) LDL CHOLESTEROL (06/11/2021 6:29 EDT) Pathologist Sig nature Calculated LDL 142 (H) 60 - 100 mg/dL [facility] Specimen Performing Organization Address City/State/ZIP Code Phon e Number [facility] [address] [place], [place] [id number] documented in this encounter Visit Diagnoses Not on filedocumented in this encounter Care Teams Emergency Services Director Relationship Specialty Start Date End Date Toyin Frias NP PCP - General 05/07/21 [address] [place] [address] documented as of this encounter
--- OUTSIDE RECORDS SUMMARY | 2021-10-09 00:07 | XMS_ITS | Encounter Summary ---
:[address] [facility] Address [address] [place] [address] Care Team Providers Name Role Phone Soraya Lovett MD Primary Care Provider Reason for Visit Reason Onset Date Comments Prior Auth, Medication 03/27/2021 Encounter Details Date Type Department Care Team Description 03/27/2021 Telephone [facility] - Apolinar Mclaughlin RN Prior Auth, [facility] Orthopedics & [address] [facility] Medication Sport Medicine [address] [facility], [place], [place] [address] [address] [place] [address] [phone] Social History Tobacco Use Types Packs/Day Years [...] Telephone Encounter - Nancy Mclaughlin RN - 03/27/2021 0845 EST Called Marcus Pham to follow up on the faxed PA request for visco supplementation for her knee. The request was faxed on 03/24/21 with attached office notes. Per Wen at [facility] - Ms. Muse plan does not require PA for medications given in the office / outpatient setting. All services are subject to medical review. Reference number: [id number] Wen / [id number] signed by Nancy Mclaughlin RN at 03/27/2021 8:53 ESTdocumented in this encounter Plan of Treatment Upcoming Encounters Date Type Specialty Care Team Description 01/08/2022 Office Visit Orthopedic Surgery Derrell Baig MD [address] [place] [phone] (Wo rk) documented as of this encounter Visit Diagnoses Not on filedocumented in this encounter Care Teams Clock And Watch Hands Mounter Relationship Specialty Start Date End Date Soraya Lovett MD PCP - General 12/12/13 05/06/21 [address] [place], [place] [address] documented as of this encounter
--- OUTSIDE RECORDS SUMMARY | 2021-10-09 00:07 | XMS_ITS | Encounter Summary ---
:1975 Author Organization [facility] Address [address] [place] [address] Care Team Providers Name Role Phone Toyin Frias NP Primary Care Provider Encounter Details Date Type Department Care Team Description 06/29/2021 Travel Social History Tobacco Use Types Packs/Day Years Used Date Never Smoker Smokeless Tobacco: Never Used Alcohol Use Standard Drinks/Week Comments Yes 0 (1 standard drink = 0.6 oz pure alcoho l) 1-2 glasses of wine per day Alcohol [...] in contact with No / Unsu re 06/29/2021 12:39 EDT someone who was confirmed or suspected [...] Visit Orthopedic Surgery Derrell Baig MD [address] [address] (Wo rk) documented as of this encounter Visit Diagnoses Not on filedocumented in this encounter Care Teams Hot Pipe Gauger Relationship Specialty Start Date End Date Toyin Frias, MARIUSZ PCP - General 05/07/[address] [place] [phone] documented as of this encounter
--- OUTSIDE RECORDS SUMMARY | 2021-10-09 00:07 | XMS_ITS | Encounter Summary ---
:1975 Author Organization [facility] Address [address] [place] [address] Care Team Providers Name Role Phone Soraya Lovett MD Primary Care Provider Reason for Visit Reason Comments Back Pain Encounter Details Date Type Department Care Team Description 04/27/2021 [facility] Erika Valverde id-back pain, acute [facility] - C, PA-C (Primary Dx) [place] [address] [facility] [place] [address] [address] [phone] [address] [place] [address] Social History Tobacco Use Types Packs/Day Years [...] Sign Reading Time Taken Comments Blood Pressure 142/90 04/27/2021 1206 EST Pulse 92 04/27/2021 1206 EST Temperature 36.6 ??C (97.9 ??F) 04/27/2021 1206 EST Respiratory Rate 18 04/27/2021 1206 EST Oxygen Saturation 100% 04/27/2021 1206 EST Inhaled Oxygen Concentration - - Weight [...] as of this encounter Patient Instructions Patient InstructionsChambErika harris PA-C - 04/27/2021 12:00 EST As we discussed you can try the robaxin instead of the flexeril, sometimes patient find it less sedating. You can try the Voltaren on your area of pain. Gentle stretches as tolerated and warm compresses on the area. May want to consider physical therapy follow up as we discussed. documented in this encounter Ordered Prescriptions Prescription Sig Dispensed Refills Start Date End Date methocarbamoL (ROBAXIN) Take 2 Tablets by 40 Tablet 0 04/2704/30/2021 500 mg tablet mouth 4 times daily for 5 days. documented in this encounter Progress Notes Erika Valverde PA-C - 04/27/2021 1200 EST [facility] Chief Complaint(s): Chief Complaint Patient presents with ??? Back Pain Assessment & Plan: 1. Mid-back pain, acute New Prescriptions METHOCARBAMOL (ROBAXIN) 500 MG TABLET Take 2 Tablets by mouth 4 times daily for 5 days. This patient with long history of back pain presents with a new pain that appears to most likely be muscular. She denies new radicular symptoms. We discussed importance of good foot wear, stretching, warm compresses, and rest when needed. Work restrictions provided. She can try robaxin which may be less sedating, she will not take it with flexeril. The patient will use topical voltaren and tylenol asneeded. She will have close follow up with spine, she will follow up sooner with any acute worseningsymptoms. HPI: This patient with long history of back pain managed by spine and bilateral knee pain presents with concern for a new back pain x 2-3 days. The patient notes she has not had change in activity or new trauma. She notes she did cross fit x 2 last week, not new for her. 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 She notes this pain is in a different area. She notesit is higher on her back on both side of her spine. She notes the pain is worse when sitting up fromlaying in bed and when lifting up her legs. The patient denies any new pain, numbness, or weakness in her LEs. Pt notes muscle relaxer helped some last night but she cannot take it during the day due to sedating effects. Patient has follow up with Gail Gilmore in 10 days. She is looking for a note for work today. The history is provided by the patient. ROS: Review of Systems Constitutional: Negative for fever. HENT: Negative for sore throat. Respiratory: Negative for cough and shortness of breath. Musculoskeletal: Negative for myalgias. Neurological: No change in taste or sense of smell Objective: Vitals and nursing notes reviewed Examination: BP (!) 142/90 (BP Cuff Location: Left arm, BP Patient Position: Sitting) Pulse 92 Temp 36.6 ??C (97.9 ??F) Comment (Src): scanner Resp 18 SpO2 100% Physical Exam Constitutional: General: She is not in acute distress. Appearance: Normal appearance. Musculoskeletal: Comments: Pt locates the pain over the bilateral lumbar spine paraspinous area. No TTP. The pain isreproduced with side bending and with flexing at hips when sitting. Skin: Findings: No bruising or rash. Neurological: Mental Status: She is alert. Gait: Gait normal. This note may be in part documented using voice dictation software. Please forgive any errors or omissions that may result from use of dictation. Ifeoma Núñez MA - 04/27/2021 1200 EST CC/HPI: Patient reports chronic back problems with L4 and L5 discs and usually manifests into her hip. She reports back pain started over the weekend that is in a different spot and radiating out to the side. It bothers her a lot more when picking up either of her legs. She usually sees Gail Gilmore but is not able to see her for another 10 days. Covid Screening: In the last 72 hours, has the patient had: New or unusual cough, shortness of breath, new nasal congestion, sore throat, fever, chills, body aches, or new loss of taste or smell without a reasonable alternative diagnosis*? (If yes, assign to ARC) No In the past 10 days, has the patient had a positive Covid test OR a confirmed close Covid exposure (<6ft for > 15mins in 24hr period)? (if yes, assign to ARC, regardless of vaccination status) No Is the patient fully Covid vaccinated? Yes Approximate date of last dose? Booster February 2021 *may be determined by RN or in discussion with available provider (PROPELLER LAYOUT WORKER's and CCA's can defer to Charge Nurse to complete triage when appropriate) PCP: Soraya Lovett documented in this encounter Plan of Treatment Upcoming Encounters Date Type Specialty Care Team Description 01/08/2022 Office Visit Orthopedic Surgery Derrell Baig MD [address] [place] [address] [phone] (Wo rk) documented as of this encounter Visit Diagnoses Diagnosis Mid-back pain, acute - Primary Pain in thoracic spine documented in this encounter Historical Medications This list may reflect changes made after this encounter. Medication Sig Dispensed Refills Start Date End Date OZEMPIC subcutaneous INJECT 0.25 MG 0 04/17/2021 pen SUBCUTANEOUSLY ONCE A WEEK FOR DIABETES added in this encounter Care Teams Slip Cover Cutter Relationship Specialty Start Date End Date Soraya Lovett MD PCP - General 12/12/13 05/06/21 [address] [place] [address] documented as of this encounter
--- OUTSIDE RECORDS SUMMARY | 2021-10-09 00:07 | XMS_ITS | Encounter Summary ---
:1975 Author Organization [facility] Address [address] [place] [address] Care Team Providers Name Role Phone Toyin Frias NP Primary Care Provider Encounter Details Date Type Department Care Team Description 06/30/2021 Travel Social History Tobacco Use Types Packs/Day [...] Visit Orthopedic Surgery Derrell Baig MD [address] [phone] (Wo rk) documented as of this encounter Visit Diagnoses Not on filedocumented in this encounter Care Teams Chef Teacher Relationship Specialty Start Date End Date Toyin Frias NP PCP - General 05/07/[address] [place] [phone] documented as of this encounter
--- OUTSIDE RECORDS SUMMARY | 2021-10-09 00:07 | XMS_ITS | Encounter Summary ---
:1975 Author Organization [facility] Address [address] [place] [address] Care Team Providers Name Role Phone Toyin Frias NP Primary Care Provider Reason for Visit Reason Comments Pre-op Exam Encounter Details Date Type Department Care Team Description 06/17/2021 Office Visit [facility] - Reggie Baig Osteoarthritis of right knee, unspecified osteoarthritis type (Primary Dx); [facility] Orthopedics & MMD Pre-op evaluation; Sport Medicine [address] [place] [place] Effusion of left knee joint [address], [facility] [address] [place] [address] [place] [address] [phone] (Wo rk) Social History Tobacco Use Types [...] Sign Reading Time Taken Comments Blood Pressure 130/84 06/17/2021 1607 EDT Pulse 94 06/17/2021 1607 EDT Temperature 36.7 ??C (98.1 ??F) 06/17/2021 1607 EDT Respiratory Rate - - Oxygen Saturation 98% 06/17/2021 1607 EDT Inhaled Oxygen Concentration - - Weight [...] encounter Progress Notes Reggie Baig MD - 06/17/2021 1600 EDTAssociated Order(s): Large Joint Injection/ArthrocentesisPost-Procedure Diagnose(s): Effusion of left knee joint PROBLEM: Right knee pain SUBJECTIVE: Seng Muse is a 45 y.o. female who is here today to discuss right knee arthroplasty. Shehas been seen here for the past 3+ years. She originally presented for right knee pain . Seng had a right HTO in 2007 at [facility]. Eventually right knee became [...] plantar fasciitis ??? GASTRIC BYPASS SURGERY 2016 [facility] ??? KNEE SURGERY Right 04/09/2019 hardware removal [...] typically feels somewhat different than the patient's chippewa-cree joint and may make unusual sounds including [...] be inadvertent errorsand omissions. Reggie Baig MD 06/21/2021 At patient's request, I [...] to verify the correct patient, procedure, equipment, functional support analyst and site/side marked as required. Patient was prepped anddraped in the usual sterile fashion. documented in this encounter Plan of Treatment Upcoming Encounters Date Type Specialty Care Team Description 01/08/2022 Office Visit Orthopedic Surgery Derrell Baig MD [address] [place] [address] (Wo rk) documented as of this encounter Procedures Procedure Name Priority Date/Time Associated Diagnosis Comme nts LARGE JOINT Routine 06/17/2021 16:00 Effusion of left Results for this INJECTION/ARTHROCEN EDT knee joint procedur e are in TESIS the results section. documented in this encounter Results XR LEG LENGTH EVALUATION (PRE AND POST OP) (06/17/2021 16:19 EDT) Anatomical Region Laterality Modality Lower Extremities Computed Radiography Specimen Impressions [facility] - 06/17/2021 16:49 EDT See above. THIS DOCUMENT HAS BEEN ELECTRONICALLY SI GNED BY DUDLEY MCDONALD MD FOR ANY QUESTIONS OR CONCERNS REGARDING THIS REPORT PLEASE CALL [facility] AT [phone] Narrative [facility] - 06/17/2021 16:49 EDT PROCEDURE INFORMATION: Exam: XR Bone Length Study (Scanogram) Exam date and time: 06/17/2021 4:19 PM Age: 45 years old Clinical indication: Pain in right knee; Encounter for other preprocedural examination; Pain: Kknee; Additional info: Pre op planning TECHNIQUE: Imaging protocol: CT or XR scanogram vie w of the legs. COMPARISON: No relevant prior studies available. FINDINGS: Bones/joints: ??There are degenerative c hanges of both knee joints. ??There is genu valgum involving the right knee. ??There is marked narrowing of the lateral carmela rtment of the right knee. ??There is narrowing of the medial compartment of the left knee. Total right leg length: ??85 cm. Right femur length: ??49 cm. Right tibia length: ??36 cm. Total left leg length: ??87 cm. Left femur length: ??49 cm. Left tibia length: ??37 cm. Leg length discrepancy: ??1-2 cm Notes: Femur length is measured from the superior aspect of the femoral head to the distal part of the m edial femoral condyle. Tibia length is measured from the distal part of the medial femoral condyle to the center of the tib ial plafond. Procedure Note Dudley Mcdonald MD - 06/17/2021 PROCEDURE INFORMATION: Exam: XR Bone Length Study (Scanogram) Exam date and time: 06/17/2021 4:19 PM Age: 45 years old Clinical indication: Pain in right knee; Encounter for other preprocedural examination; Pain: Kknee; Additional info: Pre op planning TECHNIQUE: Imaging protocol: CT or XR scanogram vie w of the legs. COMPARISON: No relevant prior studies available. FINDINGS: Bones/joints: There are degenerative erin nges of both knee joints. There is genu valgum involving t he right knee. There is marked narrowing of the lateral carmela rtment of the right knee. There is narrowing of the medial c ompartment of the left knee. Total right leg length: 85 cm. Right femur length: 49 cm. Right tibia length: 36 cm. Total left leg length: 87 cm. Left femur length: 49 cm. Left tibia length: 37 cm. Leg length discrepancy: 1-2 cm Notes: Femur length is measured from the superior aspect of the femoral head to the distal part of the m edial femoral condyle. Tibia length is measured from the distal part of the medial femoral condyle to the center of the tib ial plafond. IMPRESSION See above. THIS DOCUMENT HAS BEEN ELECTRONICALLY SI GNED BY DUDLEY MCDONALD MD FOR ANY QUESTIONS OR CONCERNS REGARDING THIS REPORT PLEASE CALL [facility] AT [phone] Performing Organization Address City/State/ZIP Code Phon e Number [facility] [place] ARTHROCENTESIS ASPIR&/INJ MAJOR JT/BURSA W/O US (06/17/2021 16:00 EDT) Narrative [facility] POINT OF CARE - 06/17/2021 16:00 E Reggie Randhawa MD ? 06/21/2021 ??8:00 Large Joint Injection/Arthrocentesis on 06/17/2021 16:00 Details: 22 G needle, lateral approach Aspirate: 100 mL clear and yellow Outcome: tolerated well, no immediate co mplications Procedure, treatment alternatives, risks and benefits explained, specific risks discussed. Consent was given by th e patient. Immediately prior to procedure a time out was called to verif y the correct patient, procedure, equipment, functional support analyst and site/side m arked as required. Patient was prepped and draped in the usual sterile fashion. Performing Organization Address City/State/ZIP Code Phon e Number [facility] POINT OF CARE documented in this encounter Visit Diagnoses Diagnosis Osteoarthritis of right knee, unspecifie d osteoarthritis type - Primary Pre-op evaluation Preoperative examination, unspecified Effusion of left knee joint Effusion of lower leg joint documented in this encounter Discontinued Medications Medication Sig Discontinue Reason Start Date End Date gabapentin (NEURONTIN) 100 200 mg 2 times Therapy completed 019 06/17/2021 mg capsule daily. losartan-hydrochlorothiazi Take by mouth Alternate therapy 02/14/20 20 06/17/2021 de (HYZAAR) 100-12.5 mg daily. 100/25 mg per tablet methylPREDNISolone follow package Therapy completed 02/05/2020 (MEDROL, HOLLY,) 4 mg directions tabletIndications: Chronic left-sided low back pain without sciatica nortriptyline (PAMELOR) 10 TAKE 1 TO 4 Therapy completed 0 06/17/2021 mg capsule CAPSULES BY MOUTH AT BEDTIME FOR SLEEP AND PAIN documented as of this encounter Historical Medications This list may reflect changes made after this encounter. Medication Sig Dispensed Refills Start Date End Date cyanocobalamin (VITAMIN Take by mouth four 0 B-12) 500 mcg tablet times a week. OZEMPIC 1 mg/dose (4 mg/3 PATIENT TAKES ON 0 03/2021 mL) pen injector amLODIPine (NORVASC) 5 mg Take 5 mg by mouth 0 tablet daily. added in this encounter Care Teams Piano Sounding Board Matcher Relationship Specialty Start Date End Date Toyin Frias NP PCP - General 05/07/[address] [place] [phone] documented as of this encounter
--- OUTSIDE RECORDS SUMMARY | 2021-10-09 00:07 | XMS_ITS | Encounter Summary ---
:1975 Author Organization [facility] Address [address] [place] [address] Care Team Providers Name Role Phone Soraya Lovett MD Primary Care Provider Encounter Details Date Type Department Care Team Description 04/06/2021 Travel Social History Tobacco Use Types Packs/Day [...] Office Visit Orthopedic Surgery Derrell Baig MD [address] [place] [address] [place] [phone] (Wo rk) documented as of this encounter Visit Diagnoses Not on filedocumented in this encounter Care Teams Residential Care Facility Manager Relationship Specialty Start Date End Date Soraya Lovett MD PCP - General 12/12/13 05/06/21 [address] [place] [address] documented as of this encounter
--- OUTSIDE RECORDS SUMMARY | 2021-10-09 00:08 | XMS_ITS | Encounter Summary ---
:1975 Author Organization [facility] Address [address] [place] [address] Care Team Providers Name Role Phone Soraya Lovett MD Primary Care Provider Toyin Frias NP Primary Care Provider Encounter Details Date Type Department Care Team Description 06/12/2020 Lab Requisition [facility] Outr Resulting Lab, Pathology & Laboratory Provider [facility] [address] [id number] Social History Tobacco Use Types Packs/Day Years Used Date Never Smoker Smokeless Tobacco: Never Used Alcohol Use Standard Drinks/Week Comments Yes 0 (1 standard drink = 0.6 oz pure alcoho l) Sex Assigned at Date Recorded Not on file COVID-19 Exposure Response Date Recorded In the last month, have you been in contact with No / Unsure 05/26/2020 13:04 EDT someone who was confirmed or suspected [...] Office Visit Orthopedic Surgery Derrell Baig MD [address] [place] [address] (Wo rk) documented as of this encounter Procedures Procedure Name Priority Date/Time Associated Diagnosis Comme nts FECAL BACTERIAL Routine 06/12/2020 9:00 EDT Resul ts for this PATHOGENS BY PCR procedure a re in the results section. documented in this encounter Results FECAL BACTERIAL PATHOGENS BY PCR (06/12/2020 9:00 EDT) Pathologist Sig nature Salmonella PCR Negative Negative [facility] Shigella/Enteroinvasive Negative Negative [facility] E. coli LABORATORY SERVICES HN LAB CAMPYLOBACTER PCR Negative Negative [facility] Shiga Toxin PCR Negative Negative [facility] Specimen Feces - Specimen from rectum (specimen) Performing Organization Address City/State/ZIP Code Phon e Number [facility] [address] [place] [address] SERVICES documented in this encounter Visit Diagnoses Not on filedocumented in this encounter Care Teams Farmworker Fruit Relationship Specialty Start Date End Date Soraya Lovett MD PCP - General 12/12/13 05/06/21 [address] [place], [place] [phone] Toyin Frias NP PCP - General 05/07/[address] [place] [phone] documented as of this encounter
--- OUTSIDE RECORDS SUMMARY | 2021-10-09 00:08 | XMS_ITS | Encounter Summary ---
:1975 Author Organization [facility] Address [address] [place] [address] Care Team Providers Name Role Phone Soraya Lovett MD Primary Care Provider Encounter Details Date Type Department Care Team Description 09/28/2019 Results Only [facility] Toyin Gilbert NP Lab - Main [place] [address] [place], [place] [phone] (Wo rk) Social History Tobacco Use Types [...] Visit Orthopedic Surgery Derrell Baig MD [address] [facility] [address] [place] [address] (Wo rk) documented as of this encounter Procedures Procedure Name Priority Date/Time Associated Diagnosis Comme nts LIPID PANEL POC - Routine 09/28/2019 15:36 Result s for this [facility] EDT procedure are i n the results section. documented in this encounter Results (ABNORMAL) LIPID PANEL POC - [facility] (09/28/2019 15:36 EDT) Pathologist Sig nature Triglyceride 202 (H) 0.00 - 150.00 MG/DL [facility] Cholesterol 184 0.00 - 200.00 MG/DL [facility] HDL 62 (H) 40.00 - 60.00 MG/DL [facility] Specimen Narrative [facility] - 020 15:36 EDT CHRONIC RENAL IMPAIRMENT IS DEFINED GFR <60 MULTIPLY RESULT BY 1.210 FOR ENRIQUE RICAN PATIENTS EGFR CALCULATED USING THE IDMS-TRACEABLE MDRD STUDY Performing Organization Address City/State/ZIP Code Phon e Number [facility] [address] [place] [address] documented in this encounter Visit Diagnoses Not on filedocumented in this encounter Care Teams Program Arranger Relationship Specialty Start Date End Date Soraya Lovett MD PCP - General 12/12/13 05/06/21 [address] [place] [address] documented as of this encounter
--- OUTSIDE RECORDS SUMMARY | 2021-10-09 00:08 | XMS_ITS | Encounter Summary ---
:1975 Author Organization [facility] Address [address] [place] [address] Care Team Providers Name Role Phone Soraya Lovett MD Primary Care Provider Reason for Visit Reason Onset Date Comments Other 02/19/2020 Encounter Details Date Type Department Care Team Description 02/19/2020 Telephone [facility] Gail Archuleta, RN [place] Other Orthopedics & Spine Medicine [address] [place] [address] [place] [address] [phone] Social History Tobacco Use Types Packs/Day Years Used Date Never Smoker Smokeless Tobacco: Never Used Alcohol Use Standard Drinks/Week Comments Yes 0 (1 standard drink = 0.6 oz pure alcoho l) Sex Assigned at Date Recorded Not on file COVID-19 Exposure Response Date Recorded In the last month, have you been in contact with No / Unsure 02/05/2020 16:10 EST someone who was confirmed or suspected [...] this encounter Miscellaneous Notes Telephone Encounter - Kayla Cramer LPN - 02/19/2020 1254 EST pt left VM yesterday, she wants F/U with Gail, she was last seen 04/12/19 and was doing well so was to call PRN, I called pt back, she has increased low back and left butt pain with occasional left leggetting numb, states PCP has increased her gabapentin but it is not really helping, difficult with sitting and standing to long, does feel that this is aggravated by her bad knees in that it causes herwalk to be off. Given apt Feb 04 at 16:15, pt happy with this plan and very thankful for documented in this encounter Plan of Treatment Upcoming Encounters Date Type Specialty Care Team Description 01/08/2022 Office Visit Orthopedic Surgery Derrell Baig MD [address] [phone] (Wo rk) documented as of this encounter Visit Diagnoses Not on filedocumented in this encounter Care Teams Weatherstrip Machine Operator Relationship Specialty Start Date End Date Soraya Lovett MD PCP - General 12/12/13 05/06/21 [address] [place], [place] [phone] documented as of this encounter
--- OUTSIDE RECORDS SUMMARY | 2021-10-09 00:08 | XMS_ITS | Encounter Summary ---
:1975 Author Organization [facility] Address [address] [place] [address] Care Team Providers Name Role Phone Soraya Lovett MD Primary Care Provider Encounter Details Date Type Department Care Team Description 11/21/[address] [facility] - [facility] Toyin Gilbert NP Lab - Main [place] [address] [place], [place] [phone] (Wo rk) Social History Tobacco Use [...] Visit Orthopedic Surgery Derrell Baig MD [address] [facility] [address] [place] [address] (Wo rk) documented as of this encounter Procedures Procedure Name Priority Date/Time Associated Comments Diagnosis VITAMIN D 25 POC - Routine 11/21/2020 12:17 Resul ts for this [facility] EDT procedure are i n the results section. FREE T3 POC - CV Routine 11/21/2020 12:17 Resul ts for this EDT procedure are i n the results section. FREE T4 POC - [facility] Routine 11/21/2020 12:17 Resul ts for this EDT procedure are i n the results section. THYROID STIM HORMONE Routine 11/21/2020 12:17 Res ults for this POC - [facility] EDT procedure are i n the results section. IRON POC - [facility] Routine 11/21/2020 12:17 Results for this EDT procedure are i n the results section. MAGNESIUM POC - CV Routine 11/21/2020 12:17 Res ults for this EDT procedure are i n the results section. CBC W/PLT & Routine 11/21/2020 12:17 Results for this DIFF,POINT OF CARE - EDT procedu re are in [facility] the results section. PTH INTACT Routine 11/21/2020 11:10 Results for this EDT procedure are i n the results section. TRANSFERRIN Routine 11/21/2020 11:10 Results for this EDT procedure are i n the results section. PHOSPHORUS Routine 11/21/2020 11:10 Results for this EDT procedure are i n the results section. FERRITIN Routine 11/21/2020 11:10 Results for this EDT procedure are i n the results section. VITAMIN B12 Routine 11/21/2020 11:10 Results for this EDT procedure are i n the results section. CALCIUM Routine 11/21/2020 11:10 Results for this EDT procedure are i n the results section. ZZVITAMIN B1, Routine 11/21/2020 11:00 Results fo r this THIAMINE EDT procedure are i n the results section. documented in this encounter Results VITAMIN D 25 POC - [facility] (11/21/2020 12:17 EDT) Pathologist Sig nature VIT D, 25 HYDROXY - 45 30 - 100 NG/ML [facility] CENTER LAB Specimen Performing Organization Address City/State/ZIP Code Phon e Number [facility] [address] [place] [address] THYROID STIM HORMONE POC - [facility] (11/21/2020 12:17 EDT) Pathologist Sig nature THYROID STIM HORMONE 2.54 0.45 - 5.33 [facility] UIU/ML CENTER LAB Specimen Performing Organization Address [facility]/ZIP Code Phon e Number [facility] [address] [place] [address] MAGNESIUM POC - [facility] (11/21/2020 12:17 EDT) Pathologist Sig nature Magnesium 1.70 1.60 - 2.30 MG/DL [facility] TER LAB Specimen Performing Organization Address [facility] Code Phon e Number [facility] [address] [place] [address] FREE T4 POC - [facility] (11/21/2020 12:17 EDT) FREE T4 - [facility] 0.73Comment: THE 0.58 - 1.64 [facility] RESULTS OF THIS NG/DL [facility] ASSAY CAN BE FALSELY ELEVATED DUE TO THE CONSUMPTION OF BIOTIN Specimen Performing Organization Address [facility] Phon e Number [facility] [address] [place] [address] FREE T3 POC - [facility] (11/21/2020 12:17 EDT) T3,FREE - [facility] 2.78Comment: THE 2.40 - 4.00 [facility] RESULTS OF THIS PG/ML [facility] CENTER LAB ASSAY CAN BE FALSELY ELEVATED DUE TO THE CONSUMPTION OF BIOTIN Specimen Performing Organization Address [facility] Phon e Number [facility] [address] [place] [address] IRON POC - [facility] (11/21/2020 12:17 EDT) Pathologist Sig nature SERUM IRON - [facility] 79 37 - 170 UG/DL [facility] Specimen Performing Organization Address [facility]/ZIP Code Phon e Number [facility] [address] [facility]], [place] [address] (ABNORMAL) CBC W/PLT & DIFF,POINT OF CARE - [facility] (11/21/2020 12:17 EDT) Pathologist Sig nature Gran # 3.6 1.4 - 6.5 [facility] X10E3/UL CENTER LAB GRAN % - [facility] 72.3 42.2 - 75.2 % [facility] HEMATOCRIT - [facility] 32.9 (L) 35.0 - 60.0 % [facility] HEMOGLOBIN - [facility] 11.1 11.0 - 18.0 [facility] G/DL [facility] LYMPH # - [facility] 1.1 (L) 1.2 - 3.4 [facility] X10E3/UL [facility] LYMPH% - [facility] 22.2 20.5 - 51.1 % [facility] MEAN CORPUSCULAR HGB 30.3 27.0 - 31.0 PG [facility] LAB MEAN CORPUSCULAR HGB 33.7 33.0 - 37.0 [facility] CONC [facility] G/DL [facility] MEAN CELL VOLUME - 89.9 80.0 - 99.9 FL [facility] MONO # - [facility] 0.3 0.1 - 0.6 [facility] X10E3/UL [facility] MONO% - [facility] 5.5 1.7 - 9.3 % [facility] MEAN PLATELET VOLUME 7.6 (L) 7.8 - 11.0 FL [facility] C[facility] LAB PLATELET COUNT 309 150 - 450 [facility] X10E3/UL [facility] RED BLOOD COUNT - 3.66 (L) 4.00 - 6.00 [facility] X10E6/UL [facility] RED CELL DISTRI WIDTH 14.3 (H) 11.6 - 13.7 % [facility] LAB WHITE BLOOD COUNT - 5.0 4.5 - 10.5 [facility] X10E3/UL [facility] Specimen Performing Organization Address City/[facility] Code Phon e Number [facility] [address] [place] [address] PTH INTACT (11/21/2020 11:10 EDT) PTH INTACT (ICMA) 36 19 - 88 pg/mL [facility] Comment: [facility] Test performed or referred by The [address] [address] Specimen Narrative [facility] - 021 12:45 EDT Does PT Have a Latex Allergy? NO Performing Organization Address City/[facility]/ZIP Code Phon e Number [facility] [address] [place] [address] TRANSFERRIN (11/21/2020 11:10 EDT) Pathologist [facility] Transferrin 274 201 - 352 mg/dL [facility] Comment: [facility] Test performed or referred by The [address] [address] Specimen Narrative [facility] - 12:45 EDT Does PT Have a Latex Allergy? NO Performing Organization Address [facility]/ZIP Code Phon e Number [facility] [address] [place] [address] VITAMIN B12 (11/21/2020 11:10 EDT) Pathologist [facility] VITAMIN B12 - 898 239 - 931 [facility] Comment: pg/mL [facility]ENTER LAB The results of this assay can be falsely elevated due to the consumption of Biotin. Specimen Narrative [facility] - 14:08 EDT Does PT Have a Latex Allergy? NO Performing Organization Address [facility]/ZIP Code Phon e Number [facility] [address] [place] [address] PHOSPHORUS (11/21/2020 11:10 EDT) Pathologist [facility] PHOSPHOROUS [facility] 3.8 2.5 - 4.5 mg/dL [facility] Specimen Narrative [facility] - 13:54 EDT Does PT Have a Latex Allergy? NO Performing Organization Address [facility] Code Phon e Number [facility] [address] [place] [address] FERRITIN (11/21/2020 11:10 EDT) Pathologist [facility] FERRITIN - [facility] 15 6.2 - 137.0 [facility] Comment: ng/mL [facility] CENTER LAB The results of this assay can be falsely lowered due t o the consumption of Biotin. Specimen Narrative [facility] - 13:54 EDT Does PT Have a Latex Allergy? NO Performing Organization Address City/[facility]/ZIP Code Phon e Number [facility] [address] [place] [address] CALCIUM (11/21/2020 11:10 EDT) Pathologist [facility] CALCIUM [facility] 9.2 8.5 - 10.5 mg/dL [facility] Specimen Narrative [facility] - 09/10/2 021 13:54 EDT Does PT Have a Latex Allergy? NO Performing Organization Address [facility]/ZIP Code Phon e Number [facility] [address] [place] [address] VITAMIN B1, THIAMINE (11/21/2020 11:00 EDT) VITAMIN B1 154 70 - 180 [facility] (THIAMINE) - [facility] Comment: nmol/L [facility] ADDITIONAL INFORMATION ------ This test was developed and its performance characteri stics determined by [facility] in a manner consistent with CLIA requirements. This test has not been cleared or approv ed by the U.S. Food and Drug Administration. Test Performed by: [facility] [address] Washer Operator: Tim Paul M.D. Ph.D.; CLIA# [id number] Specimen Narrative [facility] - 021 17:14 EDT Does PT Have a Latex Allergy? NO Performing Organization Address City/[facility] Phon e Number [facility] [address] [place] [address] documented in this encounter Visit Diagnoses Not on filedocumented in this encounter Care Teams Theater Teacher Relationship Specialty Start Date End Date Soraya Lovett MD PCP - General 12/12/13 05/06/21 [address] [place] [address] documented as of this encounter
--- OUTSIDE RECORDS SUMMARY | 2021-10-09 00:08 | XMS_ITS | Encounter Summary ---
:1975 Author Organization [facility] Address [address] [place] [address] Care Team Providers Name Role Phone Soraya Lovett MD Primary Care Provider Reason for Visit Reason Comments Pain Encounter Details Date Type Department Care Team Description 05/26/2020 Office Visit [facility] - Gail Gilmore Fa cet arthropathy, lumbar (Primary Dx); [facility] Orthopedics & RED LEADER Chronic left-sided low back pain without sciatica Spine Medicine [address] [address], [place], [place] [address] [phone] [place], [place] [address] Social History Tobacco Use Types Packs/Day Years [...] Sign Reading Time Taken Comments Blood Pressure 144/76 05/26/2020 1306 EDT Pulse 94 05/26/2020 1306 EDT Temperature 36.8 ??C (98.3 ??F) 05/26/2020 1306 EDT Respiratory Rate - - Oxygen Saturation 98% 05/26/2020 1306 EDT Inhaled Oxygen Concentration - - Weight [...] documented as of this encounter Progress Notes Gail Gilmore, DIGITAL PRODUCTION ARTIST - 05/26/2020 1300 EDT Medical Decision Making Seng Muse is a pleasant and straightforward 44 y.o. female seen in evaluation for her stable, butchronic issue of low back pain bilateral knee pain likely secondary to some degenerative facet arthropathy somewhat exacerbated by a valgus knee deformity causing alteration in gait pattern she has responded quite well to left-sided facet injections spanning L4-S1 and at this point, I discussed with the patient that it certainly would not be unreasonable to continue conservative treatment. She could reasonably consider repeating these injections should her symptoms return versus progressing to radiofrequency ablation. However, I discussed with the patient that at this point, further watchful waiting is reasonable and prudent to evaluate the long-term efficacy of her most recent injections. The patient is in agreement with this and at this point, she will follow-up with me on an as-needed basis. I spent a total of 25 minutes on the date of this encounter meeting with the patient and reviewing documentation/coordinating care as described in this note. No procedures were performed at the time ofthe visit. Imaging/Test Review On the day of this encounter, I reviewed her SPECT bone scan completed on 02/14/2020 demonstrating increased radiotracer uptake within the endplates at L2- 3, and L3-4 as well as within the left L4-5 facet. There is some additional intense radiotracer uptake within the bilateral knees Imaging was reviewed by me. Diagnosis 1. Facet arthropathy, lumbar 2. Chronic left-sided low back pain without sciatica Plan 1. Follow-up with me as needed HPI Seng Muse is a 44 y.o. female last seen by me on 04/01/2020 and at that time, she was seen for a chief complaint of chronic low back pain and bilateral knee pain. Her lower back pain was predominantly on the left side and likely associated with some degenerative facet arthropathy most significantly at L4-5. At the time of our last visit, I discussed with the patient that it would not be unreasonable to consider left-sided facet injections spanning L4-S1 to see if this could mitigate her pain. The patient was amenable to this and she is following up with me today to discuss her current status after her injections. Since her last visit, she was seen at the [facility] pain clinic on 05/09/2020 where she received injections spanning L4-S1. The patient feels as though she has had good improvement in her pain in conjunctionwith her Celebrex and has even been doing more activities in the gym thus far, she is very happy with the overall results of her injection and is even contemplating holding off on her knee replacement in favor of continued conservative treatment. The patient's medical profile was reviewed and dated today. It contains a detailed past medical history, past surgical history, list of medications, allergies, social history and family medical historyand was reviewed and updated in the EMR. reports that she has never smoked. She has never used smokeless tobacco. She reports current alcohol use. Conservative Treatment: Gabapentin, Celebrex, physical therapy, Tylenol, ibuprofen, Percocet, Medrol Dosepak, injections: 1. Left L4-S1 facets (05/09/2020)-at least 50% improvement ROS A five-point review of systems was completed today and of note, pertinent positives and negatives are indicated in the HPI Physical Examination BP (!) 144/76 (BP Cuff Location: Left arm, BP Patient Position: Sitting, BP Cuff Sizes: Adult, regular) Pulse 94 Temp 36.8 ??C (98.3 ??F) SpO2 98% Pain Ratin-3 over 10 General: Pleasant, cooperative, mood and affect are appropriate. Neuro: Alert and oriented to person, place, time and purpose. Posture: Upright Gait: Somewhat abnormal she does have a right knee deformity Palpation: There is no tenderness. There are no palpable masses, lesions or deformities. Skin: Intact with no stigmata of underlying disease. ROM: Deferred testing CC: Primary Care Provider: Soraya Coburn [address] [facility] [address] Referring Provider: Soraya SANCHEZ DICTATION WAS USED FOR NOTE COMPLETION. PLEASE EXCUSE ALL MISSPELLINGS AND PUNCTUATION ERRORS. 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
--- OUTSIDE RECORDS SUMMARY | 2021-10-09 00:08 | XMS_ITS | Encounter Summary ---
:1975 Author Organization [facility] Address [address] [place] [address] Care Team Providers Name Role Phone Soraya Lovett MD Primary Care Provider Encounter Details Date Type Department Care Team Description 09/28/2019 Results Only [facility] - [facility] Toyin Glibert NP Lab - Main [place] [address] [place], [place] [phone] (Wo rk) Social History Tobacco Use [...] Visit Orthopedic Surgery Derrell Baig MD [address] [facility] [address] [place] [address] (Wo rk) documented as of this encounter Procedures Procedure Name Priority Date/Time Associated Diagnosis Comme nts VITAMIN D 25 POC - Routine 09/28/2019 15:36 Resul ts for this [facility] EDT procedure are i n the results section. FERRITIN Routine 09/28/2019 12:30 Results for this EDT procedure are i n the results section. VITAMIN B12 Routine 09/28/2019 12:30 Results for this EDT procedure are i n the results section. documented in this encounter Results VITAMIN D 25 POC - [facility] (09/28/2019 15:36 EDT) Pathologist Sig nature VIT D, 25 HYDROXY - 46 30 - 100 NG/ML [facility] C[facility] LAB Specimen Narrative [facility] - 15:36 EDT CHRONIC RENAL IMPAIRMENT IS DEFINED GFR <60 MULTIPLY RESULT BY 1.210 FOR ENRIQUE RICAN PATIENTS EGFR CALCULATED USING THE IDMS-TRACEABLE MDRD STUDY Performing Organization Address [facility] Code Phon e Number [facility] [address] [place] [address] VITAMIN B12 (09/28/2019 12:30 EDT) VITAMIN B12 - [phone] - 001 [facility] Comment: pg/mL [facility] The results of this assay can be falsely elevated due to the consumption of Biotin. Specimen Narrative [facility] - 020 19:17 EDT Does PT Have a Latex Allergy? NO Performing Organization Address [facility] Code Phon e Number [facility] [address] [place] [address] FERRITIN (09/28/2019 12:30 EDT) FERRITIN - [facility] 19 6.2 - 137.0 [facility] Comment: ng/mL [facility] The results of this assay can be falsely lowered due t o the consumption of Biotin. Specimen Narrative [facility] - 020 19:03 EDT Does PT Have a Latex Allergy? NO Performing Organization Address [facility] Code Phon e Number [facility] [address] [place] [address] documented in this encounter Visit Diagnoses Not on filedocumented in this encounter Care Teams Carton Stapler Relationship Specialty Start Date End Date Soraya Lovett MD PCP - General 12/12/13 05/06/21 [address] [place], [place] [address] documented as of this encounter
--- OUTSIDE RECORDS SUMMARY | 2021-10-09 00:08 | XMS_ITS | Encounter Summary ---
:[address] [facility] Address [address] [place] [address] Care Team Providers Name Role Phone Soraya Lovett MD Primary Care Provider Encounter Details Date Type Department Care Team Description 11/03/2019 Orders Only [facility] - Sahara Kruger Visi t for laboratory [facility] CUSTOMER SUPPORT TECHNICIAN test (Primary Dx) [place] [address] [phone] [place], [place] [address] Social History Tobacco Use Types Packs/Day Years [...] Visit Orthopedic Surgery Derrell Baig MD [address] [facility] [address] [place], [place] [address] (Wo rk) documented as of this encounter Procedures Procedure Name Priority Date/Time Associated Comments Diagnosis DO NOT ORDER Today 11/03/2019 15:55 Visit for Results for this STANDALONE - BROAD EDT laboratory test proced ure are in COVID TEST the results section. COVID-19 TESTING Routine 11/03/2019 15:55 Visit for Results for this EDT laboratory test procedure ar e in the results section. documented in this encounter Results DO NOT ORDER STANDALONE - BROAD COVID TEST (11/03/2019 15:55 EDT) COVID-19 rt-PCR NEGATIVE Negative [facility] Result Comment: LABORATORY 2019-novel Coronavirus (2019 -nCoV) not detected by the qRT-PCR assay. Consider testing for other respiratory viruses or re-collecting for 2019-nCoV testing. Note: Optimum timing for peak viral levels du ring infections caused by 20 -nCoV have not been determined. Collection of multiple specimens from the same patient may be necessary to detect the virus. Limitations Positive results are indicat lakeshia of active infection with SARS-CoV-2 but do not rule out bacterial infection or co-infection with other viruses. The agent detected may not be the definite cause of diseas e. In addition, detection of viral RNA may not indicate the presence of infectious virus or that SARS-CoV-2 is the causative agent for clinical symptoms. Negative results do not prec lude SARS-CoV-2 infection and should not be used as the sole basis for patient management decisions. Negative results must be combined with clinical observations, patient his tory, and epidemiological in formation. False negative results may also occur if amplification inhibitors are present in the specimen or if inadequate numbers of organisms are present in the specimen. Op timum specimen types and tonio ing for peak viral levels during infections caused by SARS-CoV-2 have not been fully determined. Collection of multiple specimens (types and time points) from the same patient may be necessary to detect the virus. The test was validated for u se with upper respiratory specimens obtained via nasopharyngeal or oropharyngeal swabs in VTM, UTM, M4, M5, M6, saline, and MTM media. The performance of this test has not be en established for other spe cimens. Specimens collected using other FDA recommended Specimen Collection Materials listed in the FDA COVID-19 [employer] communication (June 07, 2019) are pr ocessed with the caveat that they were not all validated for use with this test and the result must be interpreted in this context. Furthermore, a false negative results may occur if a specimen is improperly collected, transported or handled. If the virus mutates in the RT-PCR target region, SARS-CoV-2 may not be detected or may be detected less predictably. Inhibitors or other types of interference may produce a false negative result. An interference study evaluating the effect of common cold medications was not performed. This test is not FDA-cleared but its performance characteristics were established by our CLIA-certified, CAP-accredited, high complexity laboratory in accordance with CLIA regulations, [employer] of [employer] (CAP) guidel mauro (May 31, 2019), and FDA guidance (May 12, 2019). This test is only for use un kristian the Food and Drug Administration's Emergency Use Authorization. Specimen Swab - Entire nasopharynx (body structur e) Performing Organization Address City/State/ZIP Code Phon e Number [facility] [place], [place] COVID-19 TESTING (11/03/2019 15:55 EDT) COVID-19 rt-PCR NEGATIVE Negative [facility] Result Comment: LABORATORY 2019-novel Coronavirus (2019 -nCoV) not detected by the qRT-PCR assay. Consider testing for other respiratory viruses or re-collecting for 2019-nCoV testing. Note: Optimum timing for peak viral levels du ring infections caused by 20 19-nCoV have not been determined. Collection of multiple specimens from the same patient may be necessary to detect the virus. Limitations Positive results are indicat lakeshia of active infection with SARS-CoV-2 but do not rule out bacterial infection or co-infection with other viruses. The agent detected may not be the definite cause of diseas e. In addition, detection of viral RNA may not indicate the presence of infectious virus or that SARS-CoV-2 is the causative agent for clinical symptoms. Negative results do not prec lude SARS-CoV-2 infection and should not be used as the sole basis for patient management decisions. Negative results must be combined with clinical observations, patient his tory, and epidemiological in formation. False negative results may also occur if amplification inhibitors are present in the specimen or if inadequate numbers of organisms are present in the specimen. Op timum specimen types and tonio ing for peak viral levels during infections caused by SARS-CoV-2 have not been fully determined. Collection of multiple specimens (types and time points) from the same patient may be necessary to detect the virus. The test was validated for u se with upper respiratory specimens obtained via nasopharyngeal or oropharyngeal swabs in VTM, UTM, M4, M5, M6, saline, and MTM media. The performance of this test has not be en established for other spe cimens. Specimens collected using other FDA recommended Specimen Collection Materials listed in the FDA COVID-19 [employer] communication (June 07, 2019) are pr ocessed with the caveat that they were not all validated for use with this test and the result must be interpreted in this context. Furthermore, a false negative results may occur if a specimen is improperly collected, transported or handled. If the virus mutates in the RT-PCR target region, SARS-CoV-2 may not be detected or may be detected less predictably. Inhibitors or other types of interference may produce a false negative result. An interference study evaluating the effect of common cold medications was not performed. This test is not FDA-cleared but its performance characteristics were established by our CLIA-certified, CAP-accredited, high complexity laboratory in accordance with CLIA regulations, College of [employer] an Pathologists (CAP) guidel mauro (May 31, 2019), and FDA guidance (May 12, 2019). This test is only for use un kristian the Food and Drug Administration's Emergency Use Authorization. Performing Lab [facility] LABORATORY SERVICES Specimen Swab - Entire nasopharynx (body structur e) Performing Organization Address City/State/ZIP Code Phon e Number [facility] [address] [place] [address] SERVICES [facility] [place], [place] documented in this encounter Visit Diagnoses Diagnosis Visit for laboratory test - Primary Laboratory examination, unspecified documented in this encounter Care Teams Greeting Card Editor Relationship Specialty Start Date End Date Soraya Lovett MD PCP - General 12/12/13 05/06/21 [address] [place] [address] documented as of this encounter
--- OUTSIDE RECORDS SUMMARY | 2021-10-09 00:08 | XMS_ITS | Encounter Summary ---
:1975 Author Organization [facility] Address [address] [place] [address] Care Team Providers Name Role Phone Soraya Lovett MD Primary Care Provider Encounter Details Date Type Department Care Team Description 11/22/2018 Historical Results Only [facility] [place] Izzy thompson PA [facility] - [facility] [place] [address] [place] [phone] Social History Tobacco Use Types Packs/Day Years Used Date Never Smoker Alcohol Use Standard Drinks/Week Comments Yes 0 (1 standard drink = 0.6 oz pure alcoho l) Sex Assigned at Date Recorded Not on file documented as of this encounter Plan of Treatment Upcoming Encounters Date Type Specialty Care Team Description 01/08/2022 Office Visit Orthopedic Surgery Derrell Baig MD [address] [facility] [address] [place] [address] (Wo rk) documented as of this encounter Procedures Procedure Name Priority Date/Time Associated Diagnosis Comme nts POCT DRUG SCREEN, Routine 11/22/2018 16:05 Result s for this URINE EDT procedure are i n the results section. documented in this encounter Results POCT DRUG SCREEN, URINE (11/22/2018 16:05 EDT) Pathologist Sig nature AMPHETAMINES NEG NEGATIVE [facility] BARBITURATES,UR - [facility] [place] NEG NEGATIVE [facility] BENZODIAZEPINES NEG NEGATIVE [facility] COCAINE,URINE - [facility] [place] NEG NEGATIVE [facility] MAMP (METHAMPHETAMINES - NEG NEGATIVE [facility] MARIJUANA,URINE - [facility] [place] NEG NEGATIVE [facility] MTD (METHADONE) - CV NEG NEGATIVE [facility] OPIATES,URINE - [facility] [place] NEG NEGATIVE [facility] OXY (OXYCODONE) - [facility] [place] POS NEGATIVE [facility] PCP (PHENCYCLIDINE) - CV NEG NEGATIVE [facility] PROPOXYPHENE (PPX) - [facility] NEG NEGATIVE [facility] TRICYCLIC ANTIDEPRESSANTS - NEG NEGATIVE [facility] Specimen Performing Organization Address City/State/ZIP Code Phon e Number [facility] [address] [place] [address] [facility] documented in this encounter Visit Diagnoses Not on filedocumented in this encounter Care Teams Flour Blender Relationship Specialty Start Date End Date Soraya Lovett MD PCP - General 12/12/13 05/06/21 [address] [place] [address] documented as of this encounter
--- OUTSIDE RECORDS SUMMARY | 2021-10-09 00:08 | XMS_ITS | Encounter Summary ---
:1975 Author Organization [facility] Address [address] [place] [address] Care Team Providers Name Role Phone Soraya Lovett MD Primary Care Provider Toyin Frias NP Primary Care Provider Encounter Details Date Type Department Care Team Description 02/01/2020 Results Only Imaging [facility] - Toyin Gilbert NP [facility] Radiology Resul ts [address] [place], [place] [phone] Social History Tobacco Use Types Packs/Day Years [...] Visit Orthopedic Surgery Derrell Baig MD [address] [place] [address] (Wo rk) documented as of this encounter Procedures Procedure Name Priority Date/Time Associated Comments Diagnosis US RENAL TRANSPLANT 02/01/2020 16:31 Resu lts for this WITHOUT DOPPLER EST procedure ar e in the results section. documented in this encounter Results US RENAL TRANSPLANT WITHOUT DOPPLER (02/01/2020 16:31 EST) Specimen Narrative [facility] - 02/01/2020 16:31 EST ? EXAM: ULTRASOUND/RENAL ARTERY DUPLEX SCAN EX. D/ (09) ? CLINICAL INFORMATION: ? I10 HYPERTENSION ? See attached report. ??Report als o available in PACS. ? BBL/karadha ?Reported B y: Nicola Miramontes MD ? CC: ? Transcribed Date/Time: 02/01/2020 (1631) ? Critical Power Install Technician: CARSON ? Printed Date/Time: 02/01/2020 (16 32) ? PAGE 1 ? Shantelle d Report ? Procedure Note Nicola Miramontes MD - 02/04/2020 EXAM: ULTRASOUND/RENAL ARTERY DUPLEX SC AN EX. D/ (09) CLINICAL INFORMATION: I10 HYPERTENSION See attached report. Report also availa ble in PACS. BBL/karadha Reported By: Nicola Miramontes MD CC: Transcribed Date/Time: 02/01/2020 (1631 ) Critical Power Install Technician: [email or web address] Printed Date/Time: 02/01/2020 (1984) PAGE 1 Signed Report Performing Organization Address City/State/ZIP Code Phon e Number [facility] documented in this encounter Visit Diagnoses Not on filedocumented in this encounter Care Teams Cardiac Sonographer Relationship Specialty Start Date End Date Soraya Lovett MD PCP - General 12/12/13 05/06/[address] [place] [address] Toyin Frias NP PCP - General 05/07/[address] [place] [phone] documented as of this encounter
--- OUTSIDE RECORDS SUMMARY | 2021-10-09 00:08 | XMS_ITS | Encounter Summary ---
:[address] [facility] Address [address] [place] [address] Care Team Providers Name Role Phone Soraya Lovett MD Primary Care Provider Reason for Referral Radiology Services (Routine) - Specialty Report Received Specialty Diagnoses / Procedures Referred By Contact Refer red To Contact Nuclear Medicine Diagnoses Chronic left-sided low back pain without sciatica Gail Gilmore NP Procedures NM BONE WHOLE BODY WITH SINGLE ZONE SPECT W [address] [place] [address] Referral ID Status Reason Start Date Expiration Date Visits V isits Requested Authorized [id number] Specialty 02/05/2020 1 1 Report Received Reason for Visit Reason Comments Pain Pain Pain Encounter Details Date Type Department Care Team Description 02/05/2020 Office Visit [facility] - Gail Gilmore Ch ronic left- sided low [facility] Orthopedics & ETHICS INSTRUCTOR back pain without Spine Medicine [address] sciatica (Primary Dx) [address], [place], [place] [address] [phone] [place], [place] [id number] Social History Tobacco Use Types Packs/Day Years [...] Sign Reading Time Taken Comments Blood Pressure 162/102 02/05/2020 1611 EST Pulse 100 02/05/2020 1611 EST Temperature 36.6 ??C (97.9 ??F) 02/05/2020 1611 EST Respiratory Rate - - Oxygen Saturation 97% 02/05/2020 1611 EST Inhaled Oxygen Concentration - - Weight 111.5 kg (245 lb 12.8 oz) 02/05/2020 1611 EST Height - - Body Mass Index 39.67 04/12/2019 1500 EST documented in this encounter Functional Status [...] Sig Dispensed Refills Start Date End Date methylPREDNISolone (MEDROL, follow package 1 Pack 0 01/1306/17/2021 HOLLY,) 4 mg directions tabletIndications: Chronic left-sided low back pain without sciatica documented in this encounter Progress Notes Gail Gilmore APRN - 02/05/2020 1615 EST JUAN DIEGO Muse is a 44 y.o. female last seen by me on 04/12/2019 and at that time, she was seen for a chief complaint of 100% low back pain with some occasional left lower extremity radicular symptoms that was improved with utilization of gabapentin, and Celebrex. Given that she was doing well at the time of last visit, we recommended following up on an as-needed basis. The patient is returning to me today reporting some progression/exacerbation of her left-sided low back pain that seems to be localized over the left lumbosacral junction. She does not have any clear radicular symptoms to the left lower extremity but does feel some intense pain in her bilateral knees with prolonged standing. She does have a significant right knee deformity with a scheduled total knee replacement from May 2020 with [facility] but the patient reports that her left knee pain is new and different from what she has experienced in the past. Currently, the patient reports 95% left-sided low back pain and 5% bilateral knee pain. Again, the right knee pain is not new and is associated with a knee deformity. Her left knee discomfort is newer and has been present without accident, injury, or trauma. She denies any clear radicular symptoms to her lower extremities. She denies any sense of weakness. She denies any bowel or bladder incontinence. There are no symptoms of neurogenic claudication. 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 The patient's medical profile was reviewed and dated today. It contains a detailed past medical history, past surgical history, list of medications, allergies, social history and family medical historyand was reviewed and updated in the EMR. reports that she has never smoked. She has never used smokeless tobacco. She reports current alcohol use. Conservative Treatment: Gabapentin, Celebrex, physical therapy, Tylenol, ibuprofen, Percocet ROS A five-point review of systems was completed today and of note, pertinent positives and negatives are indicated in the HPI Physical Examination BP (!) 162/102 (BP Cuff Location: Left arm, BP Patient Position: Sitting, BP Cuff Sizes: Adult, regular) Pulse 100 Temp 36.6 ??C (97.9 ??F) Wt (!) 111.5 kg (245 lb 12.8 oz) SpO2 97% BMI 39.67kg/m?? Pain Ratin-7 over 10 General: Pleasant, cooperative, mood and affect are appropriate. Neuro: Alert and oriented to person, place, time and purpose. HEENT: Reveals no obvious pathology Respiratory: Breathing is even and unlabored Posture: The patient is unable to stand with a full posture secondary to her right knee deformity. She does tend to bear the majority of her weight on her left side. Her right hip seems to sit slightlylower than the left Gait: Her gait is abnormal but nonantalgic. Her altered gait is associated with a valgus deformity of the right knee Palpation: There is no tenderness on palpation of the lumbar spine, sacroiliac joints, or associatedparaspinals. There are no palpable masses, lesions or deformities. Skin: Intact with no stigmata of underlying disease. ROM: Deferred testing today Sensation: Grossly intact throughout all dermatomes of the bilateral lower extremities Vascular: Skin is warm and pink with normal capillary refill Strength: LOWER Right Left Hip flex 5/5 5/5 Hip abd 5/5 5/5 Knee flex 5/5 5/5 Knee ext 5/5 5/5 Ank dors 5/5 5/5 Ank inv 5/5 5/5 Ank plant 5/5 5/5 Toe ext 5/5 5/5 Reflexes: Right Left Patellar L3-4 0/4 0/4 Ankles S1-2 1/ 1 Provocative Maneuvers: Negative SLR bilaterally Anu Signs:0/5 Imaging/Test Review We did review x-rays of the lumbar spine completed on 01/17/2019 which demonstrates degenerative discchanges at L3-4, and L4-5 with some degenerative facet changes at L5-S1. Flexion and extension viewsdo not demonstrate any instability. Imaging was reviewed by me. Medical Decision Making Seng Muse is a pleasant and straightforward 44 y.o. female seen back for her chronic issue with exacerbation/progressive symptoms of left-sided low back pain with some progressive and worsening leftknee pain. It is unclear the connection to these 2 very different pain complaints with no clear radicular component but I do think it would be reasonable to move forward with a SPECT bone scan for further evaluation of her lumbar spine complaints coupled with a whole-body scan to further evaluate her left knee discomfort. I do have some suspicion that her left-sided low back pain at the lumbosacral junction may be associated with some left L5-S1 facet arthropathy versus some superior sacroiliac joint inflammation and again, I discussed with the patient that the SPECT bone scan would help to differentiate between these 2 areas. The patient is in agreement and at this point, I will see her back after the SPECT bone scan is completed for a further discussion of options. We did spend at least 25 minutes today in [id number] discussion examination and in review of multiple imaging studies with greater than 50% of the visit spent in counseling them with respect to the plan moving forward. They asked appropriate questions today and all questions were answered. They understood and agreed with the plan and will follow-up as mentioned above. Diagnosis 1. Chronic left-sided low back pain without sciatica methylPREDNISolone (MEDROL, HOLLY,) 4 mg tablet NM BONE WHOLE BODY WITH SINGLE ZONE SPECT W CT Plan 1. SPECT bone scan of the lumbar spine 2. Follow-up with me when the above is completed CC: Primary Care Provider: Soraya Lovett [address] [facility] [address] Referring Provider: Soraya SANCHEZ DICTATION WAS USED FOR NOTE COMPLETION. PLEASE EXCUSE ALL MISSPELLINGS AND PUNCTUATION ERRORS. DUONG Milligan 02/05/20 [facility] Orthopedic Spine and Neurosurgery documented in this encounter Plan of Treatment Upcoming Encounters Date Type Specialty Care Team Description 01/08/2022 Office Visit Orthopedic Surgery Derrell Baig MD [address] [place] [phone] (Wo rk) Scheduled Orders Name Type Priority Associated Diagnoses Order S chedule NM BONE WHOLE BODY Imaging Routine Chronic left-sided low Ordered: 02/05/2020 WITH SINGLE ZONE SPECT back pain without sciatica W CT documented as of this encounter Visit Diagnoses Diagnosis Chronic left-sided low back pain without sciatica - Primary documented in this encounter Historical Medications This list may reflect changes made after this encounter. Medication Sig Dispensed Refills Start Date End Date acetaminophen/diphenhydra Take 2 Tablets by 0 mine (TYLENOL PM ORAL) mouth at bedtime. gabapentin (NEURONTIN) TAKE 1 TO 3 CAPSULES 0 09/2019 300 mg capsule ORALLY 3 TIMES A DAY FOR CHRONIC PAIN nortriptyline (PAMELOR) TAKE 1 TO 4 CAPSULES 0 06/17/2021 10 mg capsule BY MOUTH AT BEDTIME FOR SLEEP AND PAIN added in this encounter Care Teams Heating Mechanic Relationship Specialty Start Date End Date Soraya Lovett MD PCP - General 12/12/13 05/06/21 [address] [place] [address] documented as of this encounter
--- OUTSIDE RECORDS SUMMARY | 2021-10-09 00:08 | XMS_ITS | Encounter Summary ---
:1975 Author Organization [facility] Address [address] [place] [address] Care Team Providers Name Role Phone Soraya Lovett MD Primary Care Provider Toyin Frias NP Primary Care Provider Encounter Details Date Type Department Care Team Description 01/17/2019 Hospital [phone] [place] [address] (Work) [place] [address] Social History Tobacco Use Types Packs/Day Years [...] have Coronavirus/COVID-19? documented as of this encounter Plan of Treatment Upcoming Encounters Date Type Specialty Care Team Description 01/08/2022 Office Visit [place] [address] [place] [address] [place] [phone] (Wo rk) documented as of this encounter Visit Diagnoses Not on filedocumented in this encounter Care Teams Geotechnician Relationship Specialty Start Date End Date Soraya Lovett MD PCP - General 12/12/13 05/06/[address] [place] [address] Toyin Frias NP PCP - General 05/07/[address] [place] [phone] documented as of this encounter
--- OUTSIDE RECORDS SUMMARY | 2021-10-09 00:08 | XMS_ITS | Encounter Summary ---
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 SERVICES MANAGER DDD (degenerative disc disease), lumbar; Spine Medicine [address] Primary osteoarthritis of both knees [address], [place], [place] [address] [phone] [place], [place] [id number] Social History Tobacco Use Types Packs/Day Years Used Date Never Smoker Smokeless Tobacco: Never Used Alcohol Use Standard Drinks/Week Comments Yes 0 (1 standard drink = 0.6 oz pure alcoho l) Sex Assigned at Date Recorded Not on file COVID-19 Exposure Response Date Recorded In the last month, have you been in contact with No / Unsure 02/20/2020 11:12 EST someone who was confirmed or suspected to have Coronavirus / COVID-19? 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 female last seen by me on 02/05/2020 and at that time, she was seen for a chief complaint of left-sided low back pain with some progressive and worsening left knee pain. It was somewhat unclear whether or not these 2 very separate issues were connected as there was no clear radicular component but I subsequently recommended that she trial a Medrol Dosepak to see if this could calm her pain and I also recommended moving forward with a SPECT bone scan for further evaluation. The patient is following up with me today to discuss the results of her bone scan and options for treatment moving forward. Since her last visit, the patient has completed a Medrol Dosepak and reports an extreme amount of improvement in her overall pain not only in her low back but also in her knees. That pain relief has been sustained and she presents today with a pain level of a 1/10. The patient's medical profile was reviewed and [...] in the HPI Physical Examination BP (!) 160/88 (BP Cuff Location: Left arm, BP Patient Position: Sitting, BP Cuff Sizes: Adult, regular) Pulse 99 Temp 36.6 ??C (97.8 ??F) SpO2 99% Pain Ratin General: Pleasant, cooperative, mood and affect are appropriate. Neuro: Alert and oriented to person, place, time and purpose. HEENT: Reveals no obvious pathology Respiratory: Breathing is even and unlabored Posture: Normal, upright Gait: Antalgic favoring the right lower extremity Palpation: There is no tenderness on palpation today. There are no palpable masses, lesions or deformities. Skin: Intact with no stigmata of underlying disease. ROM: Deferred testing Sensation: Grossly intact throughout all dermatomes of [...] Left Patellar L3-4 0/4 0/4 Ankles S1-2 03/17 03/17 Provocative Maneuvers: Negative SLR bilaterally Anu Signs: 0/5 Imaging/Test Review A SPECT bone scan was completed on 02/14/2020 which demonstrates increased radiotracer uptake within the endplates at L2-3, L3-4, as well as the left L4-5 facet. There is also some increased radiotraceruptake within both knees. Incidentally, there is a right hepatic lobe cyst and a fibroid uterus witha right adnexal cyst measuring 3.5 cm, likely ovarian Medical Decision Making Seng Muse is a pleasant and straightforward 44 y.o. female seen back for her stable, but chronic issue of low back pain bilateral knee pain on the right greater than left. Her low back pain is likely secondary to some left-sided facet arthropathy most significantly at L4-5. She does have some slight right- sided SI joint uptake but has no pain in this region. Her knee pain is likely secondary to degenerative changes and she currently sees [facility] and is hopeful to have a right knee replacement in the Jun 2020 timeframe. She is doing quite well at this point after a Medrol Dosepak and I discussed with the patient that her other potential treatment option is a left L4-5 facet injection to see if this could mitigate her left-sided low back pain. However, given that she is doing so well, I discussed with the patient that we could reasonably hold off and perform some watchful waiting to evaluate the longer- term efficacy of a steroid burst. The patient feels more comfortable with this and at this point, will follow up with me on an as-needed basis but she has requested that the SPECTbone scan as well as my visit note from today be forwarded to Dr. Carrero at [facility] as well as her primary care provider, Toyin Frias NP. We did spend at least 25 minutes today in [id number] discussion examination and in review of multiple imaging studies with greater than 50% of the visit spent in counseling them with respect to the plan moving forward. They asked appropriate questions today and all questions were answered. They understood and agreed with the plan and will follow-up as mentioned above. Diagnosis 1. Facet arthropathy, lumbar 2. DDD (degenerative disc disease), lumbar 3. Primary osteoarthritis of both knees Plan 1. Consider left L4-5 facet injection 2. Follow-up with me as needed CC: Primary Care Provider: Soraya Lovett [address] [facility] [id number] Referring Provider: Toyin Frias NP DRAGON DICTATION WAS USED FOR NOTE COMPLETION. PLEASE EXCUSE ALL MISSPELLINGS AND PUNCTUATION ERRORS. 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 Medication Sig Dispensed Refills Start Date End Date losartan-hydrochlorothiaz Take by mouth daily. 0 02/14/2020 06/17/2021 huseyin (HYZAAR) 100-12.5 mg 100/25 mg per tablet added in this encounter Care Teams Analytics Developer Relationship Specialty Start Date End Date Soraya Lovtet MD PCP - General 12/12/13 05/06/21 [address] [place] [address] documented as of this encounter
--- OUTSIDE RECORDS SUMMARY | 2021-10-09 00:08 | XMS_ITS | Encounter Summary ---
:1975 Author Organization [facility] Address [address] [place] [address] Care Team Providers Name Role Phone Soraya Lovett MD Primary Care Provider Encounter Details Date Type Department Care Team Description 04/25/[address] [facility] Toyin Gilbert NP Lab - Main [place] [address] [place] [phone] (Wo rk) Social History Tobacco Use Types Packs/Day Years Used Date Never Smoker Smokeless Tobacco: Never Used Alcohol Use Standard Drinks/Week Comments Yes 0 (1 standard drink = 0.6 oz pure alcoho l) Sex Assigned at Date Recorded Not on file COVID-19 Exposure Response Date Recorded In the last month, have you been in contact with No / Unsure 04/01/2020 14:46 EST someone who was confirmed or suspected [...] Orthopedic Surgery Derrell Baig MD [address] [facility] [address] [place] [phone] (Wo rk) documented as of this encounter Procedures Procedure Name Priority Date/Time Associated Comments Diagnosis COMPREHENSIVE Routine 04/25/2020 14:07 Results fo r this METABOLIC POC - CV EST procedu re are in the results section. FREE T4 POC - CV Routine 04/25/2020 14:07 Resul ts for this EST procedure are i n the results section. THYROID STIM HORMONE Routine 04/25/2020 14:07 Res ults for this POC - [facility] EST procedure are i n the results section. MAGNESIUM POC - CV Routine 04/25/2020 14:07 Res ults for this EST procedure are i n the results section. CBC W/PLT & DIFF,POINT Routine 04/25/2020 14:07 R esults for this OF CARE - CV EST procedure are in the results section. documented in this encounter Results THYROID STIM HORMONE POC - CV (04/25/2020 14:07 EST) Pathologist [facility] THYROID STIM HORMONE 1.89 0.45 - 5.33 [facility] Specimen Narrative [facility] - 021 14:08 EST CHRONIC RENAL IMPAIRMENT IS DEFINED GFR <60 MULTIPLY RESULT BY 1.210 FOR ENRIQUE RICAN PATIENTS EGFR CALCULATED USING THE IDMS-TRACEABLE MDRD STUDY Performing Organization Address City/[facility] Code Phon e Number [facility] [address] [place] [address] MAGNESIUM POC - [facility] (04/25/2020 14:07 EST) Pathologist [facility] Magnesium 2.00 1.60 - 2.30 MG/DL [facility] TER LAB Specimen Narrative [facility] - 021 14:08 EST CHRONIC RENAL IMPAIRMENT IS DEFINED GFR <60 MULTIPLY RESULT BY 1.210 FOR ENRIQUE RICAN PATIENTS EGFR CALCULATED USING THE IDMS-TRACEABLE MDRD STUDY Performing Organization Address City/[facility]/ZIP Code Phon e Number [facility] [address] [place] [address] FREE T4 POC - CV (04/25/2020 14:07 EST) Pathologist [facility] [place] FREE T4 - [facility] 0.69Comment: THE 0.58 - 1.64 [facility] RESULTS OF THIS NG/DL [facility] ASSAY CAN BE FALSELY ELEVATED DUE TO THE CONSUMPTION OF BIOTIN Specimen Narrative [facility] - 14:08 EST CHRONIC RENAL IMPAIRMENT IS DEFINED GFR <60 MULTIPLY RESULT BY 1.210 FOR ENRIQUE RICAN PATIENTS EGFR CALCULATED USING THE IDMS-TRACEABLE MDRD STUDY Performing Organization Address City/State/ZIP Code Phon e Number [facility] [address] [place] [id number] COMPREHENSIVE METABOLIC POC - [facility] (04/25/2020 14:07 EST) Pathologist Sig nature ALBUMIN - [facility] 4.3 3.50 - 5.00 G/DL [facility] ALKALINE PHOSPHATASE - 49 38.00 - 126.00 [facility] U/L [place] [facility] BILIRUBIN TOTAL 0.4 0.20 - 1.30 [facility] MG/DL [place] [facility] BUN - [facility] 15 7.00 - 20.00 [facility] MG/DL [place] [facility] CALCIUM - [facility] 9.7 8.50 - 10.50 [facility] MG/DL [place] [facility] Chloride 100 98.00 - 107.00 [facility] MMOL/L [place] [facility] CO2 Total 28 22.00 - 30.00 [facility] MMOL/L [place] [facility] CREATININE 0.7 0.70 - 1.50 [facility] MG/DL [place] [facility] Anion Gap 9 7 - 17 [facility] GLUCOSE - [facility] 92 70.00 - 100.00 [facility] MG/DL [place] [facility] Potassium 4.0 3.50 - 5.10 [facility] MMOL/L [place] [facility] Sodium 137 137.00 - 145.00 [facility] MMOL/L [place] [facility] TOTAL PROTEIN - [facility] 6.8 6.30 - 8.20 G/DL [facility] SGOT/AST - [facility] 27 15.00 - 46.00 [facility] U/L [place] [facility] SGPT/ALT - [facility] 21 0.00 - 35.00 U/L [facility] Specimen Narrative [facility] - 14:08 EST CHRONIC RENAL IMPAIRMENT IS DEFINED GFR <60 MULTIPLY RESULT BY 1.210 FOR ENRIQUE RICAN PATIENTS EGFR CALCULATED USING THE IDMS-TRACEABLE MDRD STUDY Performing Organization Address City/State/ZIP Code Phon e Number [facility] [address] [place] [address] (ABNORMAL) CBC W/PLT & DIFF,POINT OF CARE - [facility] (04/25/2020 14:07 EST) Pathologist Sig nature Gran # 4.4 1.4 - 6.5 [facility] X10E3/UL [place] [facility] GRAN % - [facility] 75.6 (H) 42.2 - 75.2 % [facility] HEMATOCRIT - [facility] 34.3 (L) 35.0 - 60.0 % [facility] HEMOGLOBIN - [facility] 11.6 11.0 - 18.0 [facility] G/DL [place] [facility] LYMPH # - [facility] 1.1 (L) 1.2 - 3.4 [facility] X10E3/UL [place] [facility] LYMPH% - [facility] 19.6 (L) 20.5 - 51.1 % [facility] MEAN CORPUSCULAR HGB 30.3 27.0 - 31.0 PG [facility] MEAN CORPUSCULAR HGB 33.8 33.0 - 37.0 [facility] CONC [facility] G/DL [place] [facility] MEAN CELL VOLUME - 89.6 80.0 - 99.9 [place] [facility] MONO # - [facility] 0.3 0.1 - 0.6 [facility] X10E3/UL [place] [facility] MONO% - [facility] 4.8 1.7 - 9.3 % [facility] MEAN PLATELET VOLUME 7.9 7.8 - 11.0 [place] [facility] PLATELET COUNT 279 150 - 450 [facility] X10E3/UL [place] [facility] RED BLOOD COUNT - 3.83 (L) 4.00 - 6.00 [facility] X10E6/UL [place] [facility] RED CELL DISTRI WIDTH 12.8 11.6 - 13.7 % [facility] WHITE BLOOD COUNT - 5.8 4.5 - 10.5 [facility] X10E3/UL [place] [facility] Specimen Narrative [facility] - 021 14:08 EST CHRONIC RENAL IMPAIRMENT IS DEFINED GFR <60 MULTIPLY RESULT BY 1.210 FOR ENRIQUE RICAN PATIENTS EGFR CALCULATED USING THE IDMS-TRACEABLE MDRD STUDY Performing Organization Address City/State/ZIP Code Phon e Number [facility] [address] [place] [address] documented in this encounter Visit Diagnoses Not on filedocumented in this encounter Care Teams Senior Writer Relationship Specialty Start Date End Date Soraya Lovett MD PCP - General 12/12/13 05/06/21 [address] [place], [place] [id number] documented as of this encounter
--- OUTSIDE RECORDS SUMMARY | 2021-10-09 00:08 | XMS_ITS | Encounter Summary ---
:1975 Author Organization [facility] Address [address] [place] [address] Care Team Providers Name Role Phone Soraya Lovett MD Primary Care Provider Encounter Details Date Type Department Care Team Description 09/28/2019 Results Only [facility] Toyin Gilbert NP Lab - Main [place] [address] [place], [place] [phone] (Wo rk) Social History Tobacco Use [...] Visit Orthopedic Surgery Derrell Baig MD [address] [facility] [address] [place] [address] (Wo rk) documented as of this encounter Procedures Procedure Name Priority Date/Time Associated Comments Diagnosis GLYCOHEMOGLOBIN POC - Routine 09/28/2019 15:36 Re sults for this [facility] [place]T procedure are i n the results section. documented in this encounter Results GLYCOHEMOGLOBIN POC - [facility] (09/28/2019 15:36 EDT) Pathologist Sig nature Hemoglobin A1c 5.0 4.0 - 6.0 % [facility] AVG CALCULATED GLUCOSE 87 60 - 115 MG/DL [facility] Specimen Narrative [facility] - 020 15:36 EDT CHRONIC RENAL IMPAIRMENT IS DEFINED GFR <60 MULTIPLY RESULT BY 1.210 FOR ENRIQUE RICAN PATIENTS EGFR CALCULATED USING THE IDMS-TRACEABLE MDRD STUDY Performing Organization Address City/State/ZIP Code Phon e Number [facility] [address] [place] [address] documented in this encounter Visit Diagnoses Not on filedocumented in this encounter Care Teams Station Cook Relationship Specialty Start Date End Date Soraya Lovett MD PCP - General 12/12/13 05/06/21 [address] [place], [place] [id number] documented as of this encounter
--- OUTSIDE RECORDS SUMMARY | 2021-10-09 00:08 | XMS_ITS | Encounter Summary ---
:1975 Author Organization [facility] Address [address] [place] [address] Care Team Providers Name Role Phone Soraya Lovett MD Primary Care Provider Reason for Referral Consult (Routine) - Authorization Not Required Specialty Diagnoses / Procedures Referred By Contact Refer red To Contact Anesthesiology Diagnoses Facet arthropathy, lumbar DDD (degenerative disc disease), lumbar Gail Gilmore NP [place], [place], MD [address] [facility] [address] [place] [address] [address] [place] [address] Phone: Fax: Referral ID Status Reason Start Expiration Visits Visits Date Date Requested Authorized [id number] Authorization Specialty 1 1 Not Required Services 1 Required Question Answer Reason for Request: Left L4-S1 facet injections Practice Site (External Referral Only): [facility] pain clin ic Reason for Visit Reason Comments Pain Pain Encounter Details Date Type Department Care Team Description 04/01/2020 Office Visit [facility] - Gail Gilmore DDD ( degenerative disc disease), lumbar (Primary Dx); [facility] Orthopedics & L, LUGGAGE LINER Facet arthropathy, lumbar; Spine Medicine [address] Primary osteoarthritis of both knees [address], [place], [place] [phone] [place], [place] [id number] Social History Tobacco Use Types Packs/Day Years [...] Sign Reading Time Taken Comments Blood Pressure 140/88 04/01/2020 1448 EST Pulse 98 04/01/2020 1448 EST Temperature 36.4 ??C (97.5 ??F) 04/01/2020 1448 EST Respiratory Rate - - Oxygen Saturation 100% 04/01/2020 1448 EST Inhaled Oxygen Concentration - - Weight [...] as of this encounter Progress Notes Gail Gilmore APRN - 04/01/2020 1445 EST Medical Decision Making Seng Muse is a pleasant and straightforward 44 y.o. female seen in evaluation for her stable, butchronic issue of low back pain and bilateral knee pain. Her low back pain is likely secondary to a left-sided degenerative facet arthropathy most significantly at the L4-5 level. Today, we rediscussed potentially moving forward with left-sided facet injections at L4-5 and L5-S1 and the patient is opento moving forward with this at this point. She understands that she cannot be on a steroid dose long-term to manage her pain. She is utilizing Celebrex as well as Percocet for her significant knee discomfort and we discussed that she would have to discontinue the Celebrex for a brief period of time prior to her injection. She is concerned about this secondary to the positive effects that the Celebrexhas on her knees and I subsequently recommended that she connect with her primary care provider to discuss a bridge plan for her expected elevation in pain with the 5-day discontinuation of the Celebrex. The patient verbalizes understanding of all of the above and agrees to move forward with the recommended injections and I will see her back approximately 2 weeks after. I spent a total of 30 minutes on the date of this encounter meeting with the patient and reviewing documentation/coordinating care as described in this note. No procedures were performed at the time ofthe visit. Imaging/Test Review On the day of this encounter, I reviewed a SPECT bone scan completed on 02/14/2020 demonstrated increased radiotracer uptake within the endplates at L2- 3, L3-4 as well as within the left L4-5 facet. There is some additional increased radiotracer uptake within the bilateral knees. Imaging was reviewed by me. Diagnosis 1. DDD (degenerative disc disease), lumbar AMB CONS/FOLLOW UP ANESTHESIOLOGY 2. Facet arthropathy, lumbar AMB CONS/FOLLOW UP ANESTHESIOLOGY 3. Primary osteoarthritis of both knees Plan 1. Left L4-S1 facet injections 2. Patient to connect with primary care provider for a bridging plan for her pain with the brief discontinuation of her Celebrex 5 days prior to her injection 3. Follow-up with me when the above is completed HPI Seng Muse is a 44 y.o. female last seen by me on 02/20/2020 and at that time, she was seen for a chief complaint of low back pain and bilateral knee pain on the right greater than the left. At the time of our last visit, we discussed that her symptoms were likely secondary to some left-sided facet arthropathy most significantly at L4-5. She also had some slight right-sided SI joint uptake but did not have any physical exam findings suggestive that she was symptomatic from this. Her knee discomfortis likely secondary to degenerative changes which was being treated at [facility]. She had been planning a right total knee replacement in the June 2020 timeframe. At the time of our last visit, she was doing well after a Medrol Dosepak. We had discussed trialing a left L4-5 facet injection to see if this could mitigate her left-sided low back pain but given that she was doing well, we discussed on watchful waiting. The patient is following up with me today to discuss her current status. Since her last visit, the Medrol Dosepak effect has worn off. She is having some significant left-sided lumbar discomfort. This discomfort is on top of some chronic knee discomfort and again, she is hopeful for a right total knee replacement in June 2020 with [facility]. However, her low back pain has been the most bothersome as of late and she is having some increased discomfort with prolonged standing to the point that she needs to sit down. There is no radicular symptoms to the lower extremities. The patient's medical profile was reviewed and dated today. It contains a detailed past medical history, past surgical history, list of medications, allergies, social history and family medical historyand was reviewed and updated in the EMR. reports that she has never smoked. She has never used smokeless tobacco. She reports current alcohol use. Conservative Treatment: Gabapentin, Celebrex, physical therapy, Tylenol, ibuprofen, Percocet, Medrol Dosepak ROS A five-point review of systems was completed today and of note, pertinent positives and negatives are indicated in the HPI Physical Examination BP 140/88 (BP Cuff Location: Left arm, BP Patient Position: Sitting, BP Cuff Sizes: Adult, regular) Pulse 98 Temp 36.4 ??C (97.5 ??F) SpO2 100% Pain Ratin General: Pleasant, cooperative, mood and affect are appropriate. Neuro: Alert and oriented to person, place, time and purpose. Posture: Normal, upright Gait: Antalgic favoring the right lower extremity Palpation: She has mild tenderness over the left L4-S1 region over the facets. There are no palpablemasses, lesions or deformities. Skin: Intact with no stigmata of underlying disease. ROM: She has increased discomfort upon extension Sensation: Grossly intact throughout all dermatomes of the bilateral lower extremities Strength: LOWER Right Left Hip flex 5/5 5/5 Hip abd 5/5 5/5 Knee flex 5/5 5/5 Knee ext 5/5 5/5 Ank dors 5/5 5/5 Ank inv 5/5 5/5 Ank plant 5/5 5/5 Toe ext 5/5 5/5 Reflexes: Right Left Patellar L3-4 2/4 2/4 Ankles S1-2 2/4 2/4 Provocative Maneuvers: She has positive facet loading maneuvers with increased discomfort upon extension as well as right and left lateral bending Anu Signs: 0/5 CC: Primary Care Provider: Soraya Lovett [address] [place] [address] Referring Provider: MARIUSZ Brunson DICTATION WAS USED FOR NOTE COMPLETION. PLEASE EXCUSE ALL MISSPELLINGS AND PUNCTUATION ERRORS. DUONG Milligan 04/02/20 [facility] Orthopedic Spine and Neurosurgery documented in this encounter Plan of Treatment Upcoming Encounters Date Type Specialty Care Team Description 01/08/2022 Office Visit Orthopedic Surgery Derrell Baig MD [address] [place] [id number] (Wo rk) Scheduled Referrals Name Type Priority Associated Order Schedule Diagnoses AMB CONS/FOLLOW UP Outpatient Referral Routine Facet arthropat hy, Ordered: ANESTHESIOLOGY lumbar 04/02/2020 DDD (degenerative disc disease), lumbar documented as of this encounter Visit Diagnoses Diagnosis DDD (degenerative disc disease), lumbar - Primary Degeneration of lumbar or lumbosacral in tervertebral disc Facet arthropathy, lumbar 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
--- OUTSIDE RECORDS SUMMARY | 2021-10-09 00:08 | XMS_ITS | Encounter Summary ---
:1975 Author Organization [facility] Address [address] [place] [address] Care Team Providers Name Role Phone Soraya Lovett MD Primary Care Provider Reason for Visit Reason Comments Pain Pain Pain Encounter Details Date Type Department Care Team Description 04/12/2019 Office Visit [facility] - Gail Gilmore, [place] lilibeth midline low back [facility] Orthopedics & GLUE JOINTER OPERATOR pain without sciatica Spine Medicine [address] (Primary Dx) [address], [place], [place] [address] [phone] [place], [place] [address] Social History Tobacco Use Types Packs/Day Years Used Date Never Smoker Smokeless Tobacco: Never Used Alcohol Use Standard Drinks/Week Comments Yes 0 (1 standard drink = 0.6 oz pure alcoho l) Sex Assigned at Date Recorded Not on file documented as of this encounter Last Filed Vital Signs Vital Sign Reading Time Taken Comments Blood Pressure 132/70 04/12/2019 1500 EST Pulse - - Temperature - - Respiratory Rate - - Oxygen Saturation - - Inhaled Oxygen Concentration - - Weight 107.9 kg (237 lb 14.4 oz) 04/12/2019 1500 EST Height 167.6 cm (5' 6) 04/12/2019 1500 EST Body Mass Index 38.4 04/12/2019 1500 EST documented in this encounter [...] documented as of this encounter Progress Notes Mando Gail Fernandes, SHELF FILLER - 04/12/2019 1500 EST HPI: Seng Muse is a 43 y.o. female last seen by me on 01/17/2019 for at that time, evaluation of a chief complaint of 100% low back pain but some previously reported significant and more painful radicularsymptoms to left lower extremity that was significantly improved with utilization of gabapentin. On physical exam, she was noted to have some asymmetric reflexes in the patellar region at 2+ on the right and absent on the left and I recommended that it would not be unreasonable to move forward with anMRI of the lumbar spine to rule out any L4 nerve impingement and the patient is following up with martha to discuss the results of her imaging studies and options for treatment moving forward. Since her last visit, she has had a significant improvement in her overall pain. She presents with apain level of a 1 out of 10. She has begun a CrossFit program and is gradually ramping up her activities and feels as though she is moving in the right direction. She continues to report 100% low back pain. She denies any radicular symptoms to her lower extremities. She denies any numbness, tingling, or sense of weakness. She denies any alterations of bowel or bladder function and there are no symptoms of neurogenic claudication. Conservative treatment: Gabapentin, physical therapy, Celebrex, Tylenol, ibuprofen, and a steroid taper ROS: A five-point review of systems was completed today and of note, pertinent positives and negatives are indicated in the HPI Physical Examination: BP 132/70 (BP Cuff Location: Left arm, BP Patient Position: Sitting, BP Cuff Sizes: Adult, regular) Ht 167.6 cm (66) Wt (!) 107.9 kg (237 lb 14.4 oz) BMI 38.40 kg/m?? Pain: 1 Physical exam is significantly improved. Patient is a healthy-appearing female in no acute distress.She is oriented to person, place, time and purpose with stable vital signs throughout the interview and examination. She is pleasant and cooperative and mood and affect are appropriate. She stood with an erect posture and walks with with a normal gait. Heel and toe walk were accomplished without difficulty and overall her coordination is good. Head ears eyes nose and throat did not reveal any obviouspathology. Examination of the lumbar and sacral spine as well as the SI region and buttocks did not reveal any areas of tenderness and there were no palpable masses, lesions, or deformities and the skin is intact. Range of motion is full with no change in her pain pattern. Examination of the lower extremities reveals grossly intact sensation throughout all dermatomes and motor strength is 5 out of 5 throughout all muscle groups of the bilateral lower extremities. Reflexes are symmetric at the knees and the ankles at 2+ bilaterally and the toes are downgoing with no clonus. A formal vascular exam was not completed today but the skin was warm and pink. Provocative maneuvers in the lower extremities including straight leg raise and bowstring test were negative for any tension signs and did not cause an elevation in back pain. No Anu incongruency's were noted on today's examination. Imaging/Test results: An MRI of the lumbar spine was completed at the [facility] MRI which demonstrates a broad-based disc protrusion at L2-3, and L3-4 as well as L4-5. There is some moderate foraminal stenosis on the left greater than the right at L4-5 in particular and to a lesser extent some mild to moderate foraminal stenosis bilaterally at L2-3 and L3-4. Imaging was viewed and interpreted by me. Assessment: Seng Muse is a pleasant and straightforward 43-year-old female with a chief complaint of 100% lowback pain that is at a low and tolerable level at this point. She previously had some significant complaints of radicular pain to the left lower extremity with an absent left patellar reflex indicativeof some potential L4 nerve impingement. However, her complaints and physical exam have significantlyimproved and she verbalizes that she is doing quite well at this point and is working on a CrossFit program. At this point, I do not feel the need for any further investigational or interventional treatment and have discussed with the patient that she can follow-up with me on an as-needed basis. The patient verbalizes understanding and agreement. We did spend at least 15 minutes today in [id number] discussion examination and in review of theirimaging studies today with greater than 50% of the visit spent in counseling them with respect to the plan moving forward. The patient asked appropriate questions today and all questions were answered.They understood and agreed with the plan and will follow-up as mentioned above. Diagnosis: 1. Acute midline low back pain without sciatica Plan: 1. Follow-up with me on an as-needed basis depending on symptoms CC: Primary Care Provider: Soraya Lovett [address] [facility] [address] Referring Provider: [facility] DRAGON DICTATION WAS USED FOR NOTE COMPLETION. PLEASE EXCUSE ALL MISSPELLINGS AND PUNCTUATION ERRORS. DUONG Milligan 04/15/19 [facility] Orthopedic Spine and Neurosurgery documented in this encounter Plan of Treatment Upcoming Encounters Date Type Specialty Care Team Description 01/08/2022 Office Visit Orthopedic Surgery Derrell Baig MD [address] [phone] (Wo rk) documented as of this encounter Visit Diagnoses Diagnosis Acute midline low back pain without scia angie - Primary documented in this encounter Discontinued Medications Medication Sig Discontinue Reason Start Date End Date LOPERAMIDE HCL (IMODIUM A-D Take by mouth. Duplicate order 04/12/2019 ORAL) documented as of this encounter Historical Medications This list may reflect changes made after this encounter. Medication Sig Dispensed Refills Start Date End Date ascorbic acid, vitamin C, at bedtime. 0 (VITAMIN C) 500 mg tablet Calcium Carbonate 600 mg 2 tab(s) orally 0 calcium (1,500 mg) tablet twice a day celecoxib (CELEBREX) 200 Take 200 mg by 0 019 mg capsule mouth 2 times daily. cyclobenzaprine (FLEXERIL) Take 10 mg by mouth 0 03/29/2019 10 mg tablet at bedtime. diclofenac sodium 1 % gel Apply 2 g topically 0 if needed. DULoxetine (CYMBALTA) 60 0 01/15/2019 mg capsule ergocalciferol (DRISDOL; 1 cap(s) orally 0 2016 VITAMIN D2) 1,250 mcg once a week (50,000 unit) capsule ferrous sulfate 325 mg (65 Take 325 mg by 0 mg iron) tablet mouth daily. multivitamin capsule 1 cap(s) orally 0 twice a day omeprazole (PRILOSEC) 20 0 04/02/2019 mg capsule loperamide (IMODIUM A-D) 2 Take by mouth 4 0 mg tablet times daily as needed. gabapentin (NEURONTIN) 100 200 mg 2 times 0 03/0406/17/2021 mg capsule daily. oxyCODONE-acetaminophen Take 1 Tab by mouth 0 05/201907/02/2021 (PERCOCET) 5-325 mg per 2 times daily. tablet added in this encounter Care Teams Crop Duster Relationship Specialty Start Date End Date Soraya Lovett MD PCP - General 12/12/13 05/06/21 [address] [place] [address] documented as of this encounter
--- OUTSIDE RECORDS SUMMARY | 2021-10-09 00:08 | XMS_ITS | Encounter Summary ---
:1975 Author Organization [facility] Address [address] [place] [address] Care Team Providers Name Role Phone Soraya Lovett MD Primary Care Provider Toyin Frias NP Primary Care Provider Encounter Details Date Type Department Care Team Description 11/21/2020 Lab Requisition [facility] Outr Resulting Lab, Pathology & Laboratory Provider [facility] [address] [place], [place] [phone] Social History Tobacco Use Types Packs/Day Years [...] Office Visit [place] [address] [place] [phone] (Wo rk) documented as of this encounter Procedures Procedure Name Priority Date/Time Associated Diagnosis Comme nts PTH INTACT Routine 11/21/2020 11:10 EDT Results for this procedure are i n the results section . documented in this encounter Results PTH INTACT (11/21/2020 11:10 EDT) Pathologist Sig nature Intact PTH 36 19 - 88 pg/mL [facility] SERVICES Specimen Blood - Venous blood (substance) Performing Organization Address City/State/ZIP Code Phon e Number [facility] [address] [place] [address] SERVICES documented in this encounter Visit Diagnoses Not on filedocumented in this encounter Care Teams Ice Cream Shop Associate Relationship Specialty Start Date End Date Soraya Lovett MD PCP - General 12/12/13 05/06/21 [address] [place] [address] Toyin Frias NP PCP - General 05/07/21 [address] [place] [id number] documented as of this encounter
--- OUTSIDE RECORDS SUMMARY | 2021-10-09 00:08 | XMS_ITS | Encounter Summary ---
:1975 Author Organization [facility] Address [address] [place] [address] Care Team Providers Name Role Phone Soraya Lovett MD Primary Care Provider Encounter Details Date Type Department Care Team Description 02/14/2020 Results Only [facility] Toyin Gilbert NP Lab - [facility] [place] [address] [facility] [address] [place] [phone] (Wo rk) Social History Tobacco Use [...] Office Visit [place] [address] [place] [address] [address] [place] [address] (Wo rk) documented as of this encounter Procedures Procedure Name Priority Date/Time Associated Comments Diagnosis OPIOIDS PANEL, URINE Routine 02/14/2020 9:00 Resu lts for this EST procedure are i n the results section. POCT BUPRENORPHINE Routine 02/14/2020 8:31 Result s for this ([facility]) EST procedure are i n the results section. POCT DRUG SCREEN, Routine 02/14/2020 8:31 Results for this URINE EST procedure are i n the results section. documented in this encounter Results OPIOIDS PANEL, URINE (02/14/2020 9:00 EST) CODEINE BY LC-MS/MS - Negative Cutoff: [facility] ng/mL [facility] DIHYDROCODEINE BY Negative Cutoff: 25 [facility] LC-MS/MS - [facility] ng/mL [facility] HYDROCODONE BY Negative Cutoff: 25 [facility] LC-MS/MS - [facility] ng/mL [facility] HYDROMORPHONE BY Negative Cutoff: 25 [facility] LC-MS/MS - [facility] ng/mL [facility] OPIATE INTERPRETATION Positive. () [facility] Comment: [facility] ADDITIONAL INFORMATION ------ This report is intended for use in clinical monitoring and management of patients. ??It is not intended for use i n employment-related testing. This test was developed and its performance characteri stics determined by [facility] in a manner consistent with CLIA requirements. This test has not been cleared or approv ed by the U.S. Food and Drug Administration. Test Performed by: [facility] - [facility] [address] [facility], [place] [address] Trains Service Conductor: Tim Paul M.D. Ph.D.; CLIA# [id number] MORPHINE BY LC-MS/MS Negative Cutoff: 25 [facility] ng/mL [facility] NALOXONE BY LC-MS/MS Negative Cutoff: 25 [facility] ng/mL [facility] NORHYDROCODONE BY Negative Cutoff: 25 [facility] LC-MS/MS - [facility] ng/mL [facility] NOROXYCODONE BY 525 Cutoff: 25 [facility] LC-MS/MS - [facility] ng/mL [facility] NOROXYMORPHONE BY 32 Cutoff: 25 [facility] LC-MS/MS - [facility] ng/mL [facility] OXYCODONE BY LC-MS/MS 87 Cutoff: 25 [facility] ng/mL [facility] OXYMORPHONE BY 77 Cutoff: 25 [facility] LC-MS/MS - [facility] ng/mL [facility] LAB Specimen Narrative [facility] - 020 10:39 EST Does PT Have a Latex Allergy? NO Performing Organization Address [facility]/ZIP Code Phon e Number [facility] [address] [place] [address] POCT DRUG SCREEN, URINE (02/14/2020 8:31 EST) Pathologist Sig nature AMPHETAMINES NEG NEGATIVE [facility] BARBITURATES,UR - CV NEG NEGATIVE [facility] BENZODIAZEPINES NEG NEGATIVE [facility] COCAINE,URINE - [facility] NEG NEGATIVE [facility] MAMP (METHAMPHETAMINES - NEG NEGATIVE [facility] MARIJUANA,URINE - [facility] NEG NEGATIVE [facility] MTD (METHADONE) - [facility] NEG NEGATIVE [facility] OPIATES,URINE - [facility] NEG NEGATIVE [facility] OXY (OXYCODONE) - [facility] NEG NEGATIVE [facility] PCP (PHENCYCLIDINE) - [facility] NEG NEGATIVE [facility] PROPOXYPHENE (PPX) - [facility] NEG NEGATIVE [facility] TRICYCLIC ANTIDEPRESSANTS - POS NEGATIVE [facility] Specimen Performing Organization Address City/[facility]/ZIP Code Phon e Number [facility] [address] [place] [address] BUPRENORPHINE POC - [facility] (02/14/2020 8:31 EST) Pathologist Sig nature BUPRENORPHINE POC - [facility] NEG NEGATIVE [facility] Specimen Performing Organization Address City/[facility]/ZIP Code Phon e Number [facility] [address] [place] [address] documented in this encounter Visit Diagnoses Not on filedocumented in this encounter Care Teams Mold Stacker Relationship Specialty Start Date End Date Soraya Lovett MD PCP - General 12/12/13 05/06/21 [address] [place] [address] documented as of this encounter
--- OUTSIDE RECORDS SUMMARY | 2021-10-09 00:08 | XMS_ITS | Encounter Summary ---
:1975 Author Organization Health system Address [address] [place] [address] Care Team Providers Name Role Phone Soraya Lovett MD Primary Care Provider Encounter Details Date Type Department Care Team Description 04/01/2020 Travel Social History Tobacco Use Types Packs/Day [...] Visit Orthopedic Surgery Derrell Baig MD [address] [place] [address] [place] [address] (Wo rk) documented as of this encounter Visit Diagnoses Not on filedocumented in this encounter Care Teams Motor Coach Operator Relationship Specialty Start Date End Date Soraya Lovett MD PCP - General 12/12/13 05/06/21 [address] [place] [address] documented as of this encounter
--- OUTSIDE RECORDS SUMMARY | 2021-10-09 00:08 | XMS_ITS | Encounter Summary ---
:1975 Author Organization [facility] Address [address] [place] [address] Care Team Providers Name Role Phone Soraya Lovett MD Primary Care Provider Encounter Details Date Type Department Care Team Description 09/28/2019 Results Only [facility] - [facility] Toyin Gilbert NP Lab - Main [place] [address] [facility] [address] [place], [place] [phone] (Wo rk) Social History Tobacco Use [...] Visit Orthopedic Surgery Derrell Baig MD [address] [facility] [address] [place] [address] (Wo rk) documented as of this encounter Procedures Procedure Name Priority Date/Time Associated Comments Diagnosis POCT CHOLESTEROL LDL Routine 09/28/2019 15:36 Res ults for this ([facility]) EDT procedure are i n the results section. documented in this encounter Results POCT CHOLESTEROL LDL ([facility]) (09/28/2019 15:36 EDT) Pathologist Sig nature LDL CHOLESTEROL - [facility] 82 60 - 100 mg/dl [facility] Specimen Narrative [facility] - 020 15:36 EDT CHRONIC RENAL IMPAIRMENT IS DEFINED GFR <60 MULTIPLY RESULT BY 1.210 FOR ENRIQUE RICAN PATIENTS EGFR CALCULATED USING THE IDMS-TRACEABLE MDRD STUDY Performing Organization Address City/State/ZIP Code Phon e Number [facility] [address] [place] [address] documented in this encounter Visit Diagnoses Not on filedocumented in this encounter Care Teams Aquarist Relationship Specialty Start Date End Date Soraya Lovett MD PCP - General 12/12/13 05/06/21 [address] [place], [place] [address] documented as of this encounter
--- OUTSIDE RECORDS SUMMARY | 2021-10-09 00:08 | XMS_ITS | Encounter Summary ---
:1975 Author Organization [facility] Address [address] [place] [address] Care Team Providers Name Role Phone Soraya Lovett MD Primary Care Provider Encounter Details Date Type Department Care Team Description 09/28/2019 Results Only [facility] Toyin Gilbert NP Lab - Main [place] [address] [place], [place] [phone] (Wo rk) Social History Tobacco Use [...] Visit Orthopedic Surgery Derrell Baig MD [address] [facility] [address] [place] [address] (Wo rk) documented as of this encounter Procedures Procedure Name Priority Date/Time Associated Diagnosis Comme nts IRON [facility] Routine 09/28/2019 15:36 EDT Resu lts for this procedure are i n the results section. documented in this encounter Results IRON POC - [facility] (09/28/2019 15:36 EDT) Pathologist Sig nature SERUM IRON - [facility] 105 37 - 170 UG/DL [facility] Specimen Narrative [facility] - 020 15:36 EDT CHRONIC RENAL IMPAIRMENT IS DEFINED GFR <60 MULTIPLY RESULT BY 1.210 FOR ENRIQUE RICAN PATIENTS EGFR CALCULATED USING THE IDMS-TRACEABLE MDRD STUDY Performing Organization Address City/State/ZIP Code Phon e Number [facility] [address] [place] [address] documented in this encounter Visit Diagnoses Not on filedocumented in this encounter Care Teams Station Installer Relationship Specialty Start Date End Date Soraya Lovett MD PCP - General 12/12/13 05/06/21 [address] [place] [address] documented as of this encounter
--- OUTSIDE RECORDS SUMMARY | 2021-10-09 00:08 | XMS_ITS | Encounter Summary ---
:1975 Author Organization [facility] Address [address] [place] [address] Care Team Providers Name Role Phone Soraya Lovett MD Primary Care Provider Encounter Details Date Type Department Care Team Description 09/28/2019 Results Only [facility] - [facility] Toyin Gilbert NP Lab - Main [place] [address] [place], [place] [phone] (Wo rk) Social History Tobacco Use [...] Visit Orthopedic Surgery Derrell Baig MD [address] [facility] [address] [place], [place] [phone] (Wo rk) documented as of this encounter Procedures Procedure Name Priority Date/Time Associated Diagnosis Comme nts THYROID STIM Routine 09/28/2019 15:36 Results for this HORMONE POC - [facility] EDT procedure are in the results section. documented in this encounter Results THYROID STIM HORMONE POC - [facility] (09/28/2019 15:36 EDT) Pathologist Sig nature THYROID STIM HORMONE 2.00 0.45 - 5.33 [facility] Specimen Narrative [facility] - 020 15:36 EDT CHRONIC RENAL IMPAIRMENT IS DEFINED GFR <60 MULTIPLY RESULT BY 1.210 FOR ENRIQUE RICAN PATIENTS EGFR CALCULATED USING THE IDMS-TRACEABLE MDRD STUDY Performing Organization Address City/State/ZIP Code Phon e Number [facility] [address] [place] [address] documented in this encounter Visit Diagnoses Not on filedocumented in this encounter Care Teams Waxer Relationship Specialty Start Date End Date Soraya Lovett MD PCP - General 12/12/13 05/06/21 [address] [place], [place] [phone] documented as of this encounter
--- OUTSIDE RECORDS SUMMARY | 2021-10-09 00:08 | XMS_ITS | Encounter Summary ---
:1975 Author Organization [facility] Address [address] [place] [address] Care Team Providers Name Role Phone Soraya Lovett MD Primary Care Provider Encounter Details Date Type Department Care Team Description 11/22/2018 Historical Results Only [facility] [place] Izzy thompson PA [facility] - Main [facility] [address] [place] [phone] Social History Tobacco Use Types Packs/Day Years Used Date Never Smoker Alcohol Use Standard Drinks/Week Comments Yes 0 (1 standard drink = 0.6 oz pure alcoho l) Sex Assigned at Date Recorded Not on file documented as of this encounter Plan of Treatment Upcoming Encounters Date Type Specialty Care Team Description 01/08/2022 Office Visit Orthopedic Surgery Derrell Baig MD [address] [facility] [address] [place] [address] (Wo rk) documented as of this encounter Procedures Procedure Name Priority Date/Time Associated Diagnosis Comme nts POCT DRUG SCREEN, Routine 11/22/2018 16:05 Result s for this URINE EDT procedure are i n the results section. documented in this encounter Results POCT DRUG SCREEN, URINE (11/22/2018 16:05 EDT) Pathologist Sig nature BUPRENORPHINE POC - [facility] NEG NEGATIVE [facility] Specimen Performing Organization Address City/State/ZIP Code Phon e Number [facility] [address] [place] [phone] [facility] documented in this encounter Visit Diagnoses Not on filedocumented in this encounter Care Teams Field Sales Executive Relationship Specialty Start Date End Date Soraya Lovett MD PCP - General 12/12/13 05/06/21 [address] [place] [address] documented as of this encounter
--- OUTSIDE RECORDS SUMMARY | 2021-10-09 00:08 | XMS_ITS | Encounter Summary ---
:1975 Author Organization [facility] Address [address] [place] [address] Care Team Providers Name Role Phone Soraya Lovett MD Primary Care Provider Encounter Details Date Type Department Care Team Description 09/28/2019 Results Only [facility] - [facility] Toyin Gilbert NP Lab - Main [place] [address] [place], [place] [phone] (Wo rk) Social History Tobacco Use [...] [facility] [address] [place] [address] (Wo rk) documented as of this encounter Procedures Procedure Name Priority Date/Time Associated Diagnosis Comme nts CBC W/PLT & Routine 09/28/2019 15:36 Results for this DIFF,POINT OF CARE EDT procedure are in - [facility] the results section. documented in this encounter Results (ABNORMAL) CBC W/PLT & DIFF,POINT OF CARE - [facility] (09/28/2019 15:36 EDT) Pathologist Sig nature Gran # 5.6 1.4 - 6.5 [facility] X10E3/UL [facility] GRAN % - [facility] 76.3 (H) 42.2 - 75.2 % [facility] HEMATOCRIT - [facility] 35.0 35.0 - 60.0 % [facility] HEMOGLOBIN - [facility] 11.7 11.0 - 18.[address] [facility] G/DL [facility] LYMPH # - [facility] 1.5 1.2 - [address] [facility] X10E3/UL [facility] LYMPH% [facility] 20.3 (L) 20.5 - 51.1 % [facility] MEAN CORPUSCULAR HGB 30.0 27.0 - 31.0 PG [facility] MEAN CORPUSCULAR HGB 33.4 33.0 - [address] [facility] CONC [facility] G/DL [facility] MEAN CELL VOLUME - 89.8 80.0 - 99.9 [place] [facility] MONO # - [facility] 0.2 0.1 - [address].6 [facility] X10E3/UL [facility] MONO% - [facility] 3.4 1.7 - 9.3 % [facility] MEAN PLATELET VOLUME 7.3 (L) 7.8 - 11.0 [place] [facility] PLATELET COUNT 287 150 - 450 [facility] X10E3/UL [facility] RED BLOOD COUNT - 3.89 (L) 4.00 - 6.00 [facility] X10E6/UL [facility] RED CELL DISTRI WIDTH 13.2 11.6 - 13.7 % [facility] WHITE BLOOD COUNT - 7.3 4.5 - 10.5 [facility] X10E3/UL [facility] Specimen Narrative [facility] - 020 15:36 EDT CHRONIC RENAL IMPAIRMENT IS DEFINED GFR <60 MULTIPLY RESULT BY 1.210 FOR ENRIQUE RICAN PATIENTS EGFR CALCULATED USING THE IDMS-TRACEABLE MDRD STUDY Performing Organization Address City/State/ZIP Code Phon e Number [facility] [address] [place] [address] documented in this encounter Visit Diagnoses Not on filedocumented in this encounter Care Teams Integrated Logistics Support Manager Relationship Specialty Start Date End Date Soraya Lovett MD PCP - General 12/12/13 05/06/21 [address] [place], [place] [phone] documented as of this encounter
--- OUTSIDE RECORDS SUMMARY | 2021-10-09 00:08 | XMS_ITS | Encounter Summary ---
:1975 Author Organization [facility] Address [address] [place] [address] Care Team Providers Name Role Phone Soraya Lovett MD Primary Care Provider Encounter Details Date Type Department Care Team Description 09/28/[address] [facility] Toyin Gilbert NP Lab - Main [place] [address] [facility] [address] [place], [place] [phone] (Wo rk) Social History Tobacco Use [...] Visit Orthopedic Surgery Derrell Baig MD [address] [facility] [address] [place] [address] (Wo rk) documented as of this encounter Procedures Procedure Name Priority Date/Time Associated Diagnosis Comme nts FREE T3 POC - [facility] Routine 09/28/2019 15:36 Resul ts for this EDT procedure are i n the results section. documented in this encounter Results FREE T3 POC - [facility] (09/28/2019 15:36 EDT) T3,FREE - [facility] 2.79Comment: THE 2.40 - [address].00 [facility] RESULTS OF THIS PG/ML [facility] ASSAY CAN BE FALSELY ELEVATED DUE TO THE CONSUMPTION OF BIOTIN Specimen Narrative [facility] - 020 15:36 EDT CHRONIC RENAL IMPAIRMENT IS DEFINED GFR <60 MULTIPLY RESULT BY 1.210 FOR ENRIQUE RICAN PATIENTS EGFR CALCULATED USING THE IDMS-TRACEABLE MDRD STUDY Performing Organization Address City/State/ZIP Code Phon e Number [facility] [address] [place] [address] documented in this encounter Visit Diagnoses Not on filedocumented in this encounter Care Teams Garage Door Installer Relationship Specialty Start Date End Date Soraya Lovett MD PCP - General 12/12/13 05/06/21 [address] [place], [place] [address] documented as of this encounter
--- OUTSIDE RECORDS SUMMARY | 2021-10-09 00:08 | XMS_ITS | Encounter Summary ---
:[address] [facility] Address [address] [place] [address] Care Team Providers Name Role Phone Soraya Lovett MD Primary Care Provider Encounter Details Date Type Department Care Team Description 11/14/2019 Results Only [facility] - [facility] Toyin Gilbert NP Lab - Main [place] [address] [facility] [address] [place], [place] [phone] (Wo rk) Social History Tobacco Use [...] Visit Orthopedic Surgery Derrell Baig MD [address] [facility] [address] [place] [address] (Wo rk) documented as of this encounter Procedures Procedure Name Priority Date/Time Associated Diagnosis Comme nts BASIC METABOLIC Routine 11/14/2019 14:10 Results for this PANEL POCT - [facility] EDT procedure are in the results section. documented in this encounter Results (ABNORMAL) BASIC METABOLIC PANEL POCT - [facility] (11/14/2019 14:10 EDT) Pathologist Sig nature BUN - [facility] 18 7.00 - 20.00 MG/DL [facility] CALCIUM - [facility] 9.4 8.50 - 10.50 MG/DL [facility] Chloride 101 98.00 - 107.00 [facility] MMOL/L [facility] CO2 Total 26 22.00 - 30.00 [facility] MMOL/L [facility] CREATININE 0.6 (L) 0.70 - 1.50 MG/DL [facility] Anion Gap 8 7 - 17 [facility] GLUCOSE - [facility] 123 (H) 70.00 - 100.00 [facility] MG/DL [facility] Potassium 4.0 3.50 - 5.10 MMOL/L [facility] Sodium 135 (L) 137.00 - 145.00 [facility] MMOL/L [facility] Specimen Narrative [facility] - 020 14:12 EDT CHRONIC RENAL IMPAIRMENT IS DEFINED GFR <60 MULTIPLY RESULT BY 1.210 FOR ENRIQUE RICAN PATIENTS EGFR CALCULATED USING THE IDMS-TRACEABLE MDRD STUDY Performing Organization Address City/State/ZIP Code Phon e Number [facility] [address] [place] [address] documented in this encounter Visit Diagnoses Not on filedocumented in this encounter Care Teams Supervisor Weaving Relationship Specialty Start Date End Date Soraya Lovett MD PCP - General 12/12/13 05/06/21 [address] [place] [address] documented as of this encounter
--- OUTSIDE RECORDS SUMMARY | 2021-10-09 00:08 | XMS_ITS | Encounter Summary ---
:1975 Author Organization [facility] Address [address] [place] [address] Care Team Providers Name Role Phone Soraya Lovett MD Primary Care Provider Toyin Frias NP Primary Care Provider Encounter Details Date Type Department Care Team Description 01/18/2019 Results Only Imaging [facility] - Soledad Gilmore, [facility] Radiology Resul ts WASH OIL PUMP OPERATOR HELPER [address] [phone] (Wo rk) Social History Tobacco Use Types Packs/Day Years Used Date Never Smoker Alcohol Use Standard Drinks/Week Comments Yes 0 (1 standard drink = 0.6 oz pure alcoho l) Sex Assigned at Date Recorded Not on file documented as of this encounter Plan of Treatment Upcoming Encounters Date Type Specialty Care Team Description 01/08/2022 Office Visit Orthopedic Surgery Derrell Baig MD [address] [facility] [address] [place] [address] (Wo rk) documented as of this encounter Procedures Procedure Name Priority Date/Time Associated Diagnosis Comme nts XR LUMBAR SPINE 01/18/2019 7:20 EST Resul ts for this COMPLETE WITH procedure are in FLEX/EXT AND the results OBLIQUES MIN 6 section. VIEWS documented in this encounter Results XR LUMBAR SPINE COMPLETE WITH FLEX/EXT AND OBLIQUES MIN 6 VIEWS (01/18/2019 7:20 EST) Specimen Narrative [facility] - 01/18/2019 7:20 EST ? EXAM: RADIOLOGY/LUMBAR SPINE WITH FLEX/EX EX. D/ ([id number]) ? CLINICAL INFORMATION: ? M54.5 - Lumbar pain ? AP/LAT/FLEX/EX ? INDICATION: M54.5 - Lumbar pain, AP/LAT/FLEX/EX. ? COMPARISON: None. ? TECHNIQUE: AP, lateral neutral an d lateral flexion and extension ? views were obtained. ? FINDINGS: ? Minimal scoliosis of the lumbar s pine with minimal lateral right ? downward tilt of the visualized p gina. Mild degenerative disc ? disease and facet arthrosis throu ghout the lumbar spine. No fracture ? or subluxation. Questionable scle rotic lesion within the right side ? of the L4 vertebral body. Further evaluation with MRI of the lumbar ? spine is recommended. ? IMPRESSION: ? 1. Mild degenerative spondylosis. ? 2. Possible sclerotic lesion with in the L4 vertebral body. Further ? evaluation with MRI of the lumbar spine is recommended. ? This report has been flagged for a noncritical result requiring ? follow-up on the [employer] application, to be tracked by ? the [employer] tracking system. ? REPORT SIGNED IN OTHER VENDOR SYSTEM 01/18/2019 ?Reported B y: Reynaldo Bautista MD ? CC: Gail Gilmore ? Transcribed Date/Time: 01/18/2019 (0720) ? Human Resources Office Manager: ? Printed Date/Time: 01/18/2019 (07 20) ? PAGE 1 ? Shantelle d Report ? Procedure Note Reynaldo Bautista MD, MD - 01/20/2019 EXAM: RADIOLOGY/LUMBAR SPINE WITH FLEX/ EX EX. D/ ([id number]) CLINICAL INFORMATION: M54.5 - Lumbar pain AP/LAT/FLEX/EX INDICATION: M54.5 - Lumbar pain, AP/LAT /FLEX/EX. COMPARISON: None. TECHNIQUE: AP, lateral neutral and late ral flexion and extension views were obtained. FINDINGS: Minimal scoliosis of the lumbar spine w ith minimal lateral right downward tilt of the visualized pelvis. Mild degenerative disc disease and facet arthrosis throughout the lumbar spine. No fracture or subluxation. Questionable sclerotic lesion within the right side of the L4 vertebral body. Further evalu ation with MRI of the lumbar spine is recommended. IMPRESSION: 1. Mild degenerative spondylosis. 2. Possible sclerotic lesion within the L4 vertebral body. Further evaluation with MRI of the lumbar spine is recommended. This report has been flagged for a nonc ritical result requiring follow-up on the [employer] PACS findings ap plication, to be tracked by the [facility] tracking system. REPORT SIGNED IN OTHER VENDOR SYSTEM 01/18/2019 Reported By: Reynaldo Bautista MD CC: Gail Gilmore Transcribed Date/Time: 01/18/2019 (719 ) Human Resources Office Manager: Printed Date/Time: 01/18/2019 (719) PAGE 1 Signed Report Performing Organization Address City/State/ZIP Code Phon e Number [facility] documented in this encounter Visit Diagnoses Not on filedocumented in this encounter Care Teams Farm Machinery Set Up Mechanic Relationship Specialty Start Date End Date Soraya Lovett MD PCP - General 12/12/13 05/06/21 [address] [place] [address] Toyin Frias, MARIUSZ PCP - General 05/07/21 [address] [place] [phone] documented as of this encounter
--- OUTSIDE RECORDS SUMMARY | 2021-10-09 00:08 | XMS_ITS | Encounter Summary ---
:1975 Author Organization [facility] Address [address] [place] [address] Care Team Providers Name Role Phone Soraya Lovett MD Primary Care Provider Toyin Frias NP Primary Care Provider Encounter Details Date Type Department Care Team Description 11/21/2020 Lab Requisition [facility] Outr Resulting Lab, Pathology & Laboratory Provider [facility] [address] [place], [place] [address] Social History Tobacco Use Types Packs/Day Years [...] Office Visit [place] [address] [place] [phone] (Wo rk) documented as of this encounter Procedures Procedure Name Priority Date/Time Associated Diagnosis Comme nts TRANSFERRIN Routine 11/21/2020 11:10 EDT Results for this procedure are i n the results section . documented in this encounter Results TRANSFERRIN (11/21/2020 11:10 EDT) Pathologist Sig nature Transferrin 274 201 - 352 mg/dL [facility] Specimen Blood - Venous blood (substance) Performing Organization Address City/State/ZIP Code Phon e Number [facility] [address] [place] [address] SERVICES documented in this encounter Visit Diagnoses Not on filedocumented in this encounter Care Teams Tool Tender Relationship Specialty Start Date End Date Soraya Lovett MD PCP - General 12/12/13 05/06/21 [address] [place] [address] Toyin Frias NP PCP - General 05/07/21 [address] [place] [phone] documented as of this encounter
--- OUTSIDE RECORDS SUMMARY | 2021-10-09 00:08 | XMS_ITS | Encounter Summary ---
:1975 Author Organization [facility] Address [address] [place] [address] Care Team Providers Name Role Phone Soraya Lovett MD Primary Care Provider Reason for Referral Consult (Routine) - Closed Specialty Diagnoses / Procedures Referred By Contact Refer red To Contact Anesthesiology Diagnoses Facet arthropathy, lumbar Chronic bilateral low back pain with bilateral sciatica Gail Gilmore, GENERAL CONTRACTOR Con Ferrell [address] [place] [address] [address] [facility] [address] Phone: Fax: Referral ID Status Reason Start Date Expiration Date Visits V isits Requested Authorized [id number] Closed Specialty 08/21/2020 1 1 Services Required Question Answer Reason for Request: L4-5 IDALMIS Practice Site (External Referral Only): [facility] [place] Reason for Visit Reason Comments Pain Pain Pain Encounter Details Date Type Department Care Team Description 08/20/2020 Office Visit [facility] - Gail Gilmore Fa cet arthropathy, lumbar (Primary Dx); [facility] Orthopedics & GENERAL CONTRACTOR Chronic bilateral low back pain with myranda ateral sciatica Spine Medicine [address], [place], [place] [address] [phone] [place] [address] Social History Tobacco Use Types Packs/Day Years Used Date Never Smoker Smokeless Tobacco: Never Used Alcohol Use Standard Drinks/Week Comments Yes 0 (1 standard drink = 0.6 oz pure alcoho l) Sex Assigned at Date Recorded Not on file documented as of this encounter Last Filed Vital Signs Vital Sign Reading Time Taken Comments Blood Pressure 144/76 08/20/2020 1628 EDT Pulse 81 08/20/2020 1628 EDT Temperature - - Respiratory Rate - - Oxygen Saturation 99% 08/20/2020 1628 EDT Inhaled Oxygen Concentration - - Weight [...] of this encounter Progress Notes Gail Gilmore, NICOLA - 08/20/2020 1615 EDT Medical Decision Making Seng Muse is a pleasant and straightforward 44 y.o. female seen in evaluation for her low back and bilateral leg pain. She continues to report that her back pain is doing well after her facet injections but she has become more more bothered by her leg/knee symptoms. The patient reports that after her facet injections, she had a significant amount of improvement in her knee discomfort with virtual resolution of episodes in which her knees lock out. I advised the patient that this was not an expected outcome of facet injections and potentially, the lower extremity symptoms could be associated with a disc protrusion at L4-5 causing some bilateral foraminal stenosis. I discussed with the patient that repeating facet injections was not indicated to treat her lower extremity complaints and likely,her lower extremity symptoms are more associated with the degenerative changes in her knees as well as a significant right-sided valgus deformity. However, it is not unreasonable to consider a diagnosti c/therapeutic L4-5 epidural injection to see if this could target her symptoms. The patient would like to try this and I will see her back once the injection is completed. I spent a total of 30 minutes on the date of this encounter meeting with the patient and reviewing documentation/coordinating care as described in this note. No procedure was performed at today's visit. Imaging/Test Review On the day of this encounter, I reviewed an MRI of the lumbar spine completed at [facility] demonstratinga broad-based disc protrusion at L4-5 causing some bilateral foraminal narrowing Imaging was reviewed by me. Diagnosis 1. Facet arthropathy, lumbar AMB CONS/FOLLOW UP ANESTHESIOLOGY 2. Chronic bilateral low back pain with bilateral sciatica AMB CONS/FOLLOW UP ANESTHESIOLOGY Plan 1. Diagnostic/therapeutic L4-5 IDALMIS 2. Follow-up with me when the above is completed [facility] Seng Muse is a 44 y.o. female last seen by me on 05/26/2020 and at that time, she was seen for a chief complaint of low back pain and bilateral knee pain likely secondary to degenerative facet arthropathy in the lumbar spine somewhat exacerbated by a valgus knee deformity causing alteration in gait pattern. She responded well to left-sided facet injections spanning L4-S1 and at the time of her lastvisit, we discussed continued watchful waiting with potential recommendations to progress to radiofrequency ablation depending on her symptoms. The patient is following up with me today reporting that she is feeling recurrent episodes/sensations of her knees locking out, that had previously been nicely improved with her injections. She endorses some radiating symptoms to the lateral and slightly anterior aspect of the knees. She does use Percocet chronically to treat the severe pain associated with the deformities of her bilateral knees. She is currently contemplating moving forward with knee replacement surgery and has been seen at [facility]. However, she has become more and more bothered by her leg symptoms that she reports that something needs to be done. The patient's medical profile was reviewed and [...] therapy, Tylenol, ibuprofen, Percocet, Medrol Dosepak, injections: ?? 1. Left L4-S1 facets (05/09/2020)-at least 50% improvement ROS A five-point review of systems was completed today and of note, pertinent positives and negatives are indicated in the [facility] Physical Examination BP (!) 144/76 (BP Cuff Location: Left arm, BP Patient Position: Sitting, BP Cuff Sizes: Adult, regular) Pulse 81 SpO2 99% Pain Ratin-7 over 10 General: Pleasant, cooperative, mood and affect are appropriate. Neuro: Alert and oriented to person, place, time and purpose. Posture: Upright Gait: Antalgic favoring the right lower extremity. She does have a clear valgus deformity of the right knee Palpation: There are no palpable masses, lesions or deformities. Skin: Intact with no stigmata of underlying disease. ROM: Deferred CC: Primary Care Provider: Soraya Lovett [address] [facility] [address] Referring Provider: Soraya SANCHEZ DICTATION WAS USED FOR NOTE COMPLETION. PLEASE EXCUSE ALL MISSPELLINGS AND PUNCTUATION ERRORS. DUONG Milligan 08/21/20 Orthopedic Spine and Neurosurgery documented in this encounter Plan of Treatment Upcoming Encounters Date Type Specialty Care Team Description 01/08/2022 Office Visit Orthopedic Surgery Derrell Baig MD [address] [place] [phone] (Wo rk) Scheduled Referrals Name Type Priority Associated Order Schedule Diagnoses AMB CONS/FOLLOW UP Outpatient Referral Routine Facet arthropat hy, Ordered: ANESTHESIOLOGY lumbar 08/21/2020 Chronic bilateral low back pain with bilateral sciatica documented as of this encounter Visit Diagnoses Diagnosis Facet arthropathy, lumbar - Primary 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
--- OUTSIDE RECORDS SUMMARY | 2021-10-09 00:08 | XMS_ITS | Encounter Summary ---
:1975 Author Organization [facility] Address [address] [place] [address] Care Team Providers Name Role Phone Soraya Lovett MD Primary Care Provider Encounter Details Date Type Department Care Team Description 01/18/2020 Results Only [facility] - [facility] Toyin Gilbert NP Lab - [address] [place] [phone] (Wo rk) Social History Tobacco Use [...] Office Visit [place] [address] [place] [address] [address] [place] [address] (Wo rk) documented as of this encounter Procedures Procedure Name Priority Date/Time Associated Diagnosis Comme nts BASIC METABOLIC Routine 01/18/2020 11:25 Results for this PANEL POCT [facility] EST procedure are in the results section. documented in this encounter Results (ABNORMAL) BASIC METABOLIC PANEL POCT [facility] (01/18/2020 11:25 EST) Pathologist Sig nature BUN - [facility] 13 7.00 - 20.00 MG/DL [facility] CALCIUM - [facility] 9.6 8.50 - 10.50 MG/DL [facility] Chloride 106 98.00 - 107.00 [facility] MMOL/L [facility] CO2 Total 20 (L) 22.00 - 30.00 [facility] CREATININE 0.6 (L) 0.70 - 1.50 MG/DL [facility] Anion Gap 12 7 - 17 [facility] GLUCOSE - [facility] 110 (H) 70.00 - 100.00 [facility] MG/DL [facility] Potassium 4.0 3.50 - 5.10 MMOL/L [facility] Sodium 138 137.00 - 145.00 [facility] MMOL/[facility] Specimen Narrative [facility] - 020 11:26 EST CHRONIC RENAL IMPAIRMENT IS DEFINED GFR <60 MULTIPLY RESULT BY 1.210 FOR ENRIQUE RICAN PATIENTS EGFR CALCULATED USING THE IDMS-TRACEABLE MDRD STUDY Performing Organization Address City/State/ZIP Code Phon e Number [facility] [address] [place] [address] documented in this encounter Visit Diagnoses Not on filedocumented in this encounter Care Teams Offal Worker Relationship Specialty Start Date End Date Soraya Lovett MD PCP - General 12/12/13 05/06/21 [address] [place] [address] documented as of this encounter
--- OUTSIDE RECORDS SUMMARY | 2021-10-09 00:08 | XMS_ITS | Encounter Summary ---
:1975 Author Organization [facility] Address [address] [place] [address] Care Team Providers Name Role Phone Soraya Lovett MD Primary Care Provider Toyin Frias NP Primary Care Provider Encounter Details Date Type Department Care Team Description 02/18/2020 Results Only Imaging [facility] - Toyin Gilbert NP [facility] Radiology Resul ts [address] [place], [place] [phone] Social History Tobacco Use Types Packs/Day [...] Visit Orthopedic Surgery Derrell Baig MD [address] [facility] [address] [place] [phone] (Wo rk) documented as of this encounter Procedures Procedure Name Priority Date/Time Associated Diagnosis Comme nts CT ABDOMEN PELVIS W 02/18/2020 12:11 Resu lts for this WO CONTRAST EST procedure are i n the results section. documented in this encounter Results CT ABDOMEN PELVIS W WO CONTRAST (02/18/2020 12:11 EST) Specimen Narrative [facility] - 02/18/2020 12:11 EST ? EXAM: CAT SCAN/ABDOMEN PELVIS W/WO CONTRA EX. D/ (1113) ? CLINICAL INFORMATION: ? N28.9 RENAL LESION, LEFT KIDNEY P OLE SEEN ? ON RENAL U/S 02/01/20 ? PROCEDURE INFORMATION: ? Exam: CT Abdomen And Pelvis Witho ut And With Contrast ? Exam date and time: 02/18/2020 11: 13 AM ? Age: 44 years old ? Clinical indication: Abnormal fin dings; Abnormal radiologic ? finding of the abdomen; Radiologi c exam and body structure: ? Ultrasound; Prior surgery; Surger y date: 6+ months; Surgery ? type: Bariatric sleeve; Additiona l info: N28.9 renal lesion, ? left kidney pole seen, on renal u /s 02/01/20 ? TECHNIQUE: ? Imaging protocol: Computed tomogr aphy of the abdomen and pelvis ? without and with intravenous cont rast. ? Radiation optimization: All CT sc ans at this facility use at ? least one of these dose optimizat ion techniques: automated ? exposure control; mA and/or kV ad justment per patient size ? (includes targeted exams where do se is matched to clinical ? indication); or iterative reconst ruction. ? Contrast material: OMNIPAQUE 350; Contrast volume: 100 ml; ? Contrast route: INTRAVENOUS (IV); ? COMPARISON: ? US RENAL ARTERY DU on the kidney man there really does with the ? the PLEX SCAN 02/01/2020 8:20 AM ? FINDINGS: ? Lungs: The visualized lung bases are within normal limits. ? Heart: The visualized portions of the heart and pericardium are ? unremarkable. ? Liver: There is a low-attenuation lesion within the left lobe of ? the liver measuring approximately 1.8 cm. This does not enhance ? and most likely represents a cyst . There is a larger ? low-attenuation lesion within the right lobe of the liver ? measuring 3.8 cm. This does not e nhance and most likely ? represents a cyst as well. ? Gallbladder and bile ducts: The g allbladder is unremarkable. ? Pancreas: The pancreas is within normal limits. ? Spleen: The spleen is within norm al limits. ? Adrenal glands: The adrenal gland s are unremarkable. ? Kidneys and ureters: There is a s mall calcification within the ? lower pole of the right kidney me asuring 3 mm. This is not ? obstructing. The small lesion wit hin the upper pole of the left ? kidney seen on the ultrasound exa mination measures approximately ? 6 mm does not enhance. It is fat density and therefore most ? likely represents a small angiomy olipoma. ? Stomach and bowel: The patient is status post gastric surgery. ? Appendix: No evidence of appendic itis. ? Intraperitoneal space: Unremarkab le. No free air. No significant ? fluid collection. ? Vasculature: Unremarkable. No abd ominal aortic aneurysm. ? PAGE 1 ? Shantelle d Report ? (CONTINUED) ? Lymph nodes: ??No enlarged lymph nodes. ? Urinary bladder: The urinary blad kristian is unremarkable. ? Reproductive: There is an enlarge d leiomyomatous uterus. There ? is a right ovarian cyst measuring 2 cm. The left ovary is within ? normal limits. ? Bones/joints: There are degenerat lakes[place]ia changes of the thoracic and ? lumbar spines. ? Soft tissues: Unremarkable. ? IMPRESSION: ? 1. The small renal lesion seen on ultrasound examination ? represents a small angiomyolipoma . No further workup is ? necessary. Right nephrolithiasis without evidence of ? obstruction. ? 2. Status post gastric surgery. ? 3. Enlarged leiomyomatous uterus. ? 4. Liver cysts as above. ? 5. Osseous findings as above. ? REPORT SIGNED IN OTHER VENDOR SYSTEM 02/18/2020 ?Reported B y: Dudley Padgett MD ? CC: ? Transcribed Date/Time: 02/18/2020 (1211) ? Adult Specialist: ? Printed Date/Time: 02/18/2020 (12 11) ? PAGE 2 ? Shantelle d Report ? Procedure Note Dudley Padgett MD - 02/18/2020 EXAM: CAT SCAN/ABDOMEN PELVIS W/WO CONT RA EX. D/ (1113) CLINICAL INFORMATION: N28.9 RENAL LESION, LEFT KIDNEY POLE SE EN ON RENAL U/S 02/01/20 PROCEDURE INFORMATION: Exam: CT Abdomen And Pelvis Without And With Contrast Exam date and time: 02/18/2020 11:13 AM Age: 44 years old Clinical indication: Abnormal findings; Abnormal radiologic finding of the abdomen; Radiologic exam and body structure: Ultrasound; Prior surgery; Surgery date : 6+ months; Surgery type: Bariatric sleeve; Additional info : N28.9 renal lesion, left kidney pole seen, on renal u/s TECHNIQUE: Imaging protocol: Computed tomography o f the abdomen and pelvis without and with intravenous contrast. Radiation optimization: All CT scans at this facility use at least one of these dose optimization te chniques: automated exposure control; mA and/or kV adjustme nt per patient size (includes targeted exams where dose is matched to clinical indication); or iterative reconstructio n. Contrast material: OMNIPAQUE 350; Contr ast volume: 100 ml; Contrast route: INTRAVENOUS (IV); COMPARISON: US RENAL ARTERY DU on the kidney man th ere really does with the the PLEX SCAN 02/01/2020 8:20 AM FINDINGS: Lungs: The visualized lung bases are wi thin normal limits. Heart: The visualized portions of the h eart and pericardium are unremarkable. Liver: There is a low-attenuation lesio n within the left lobe of the liver measuring approximately 1.8 c m. This does not enhance and most likely represents a cyst. Ther e is a larger low-attenuation lesion within the right lobe of the liver measuring 3.8 cm. This does not enhance and most likely represents a cyst as well. Gallbladder and bile ducts: The gallbla dder is unremarkable. Pancreas: The pancreas is within normal limits. Spleen: The spleen is within normal knutson its. Adrenal glands: The adrenal glands are unremarkable. Kidneys and ureters: There is a small c alcification within the lower pole of the right kidney measurin g 3 mm. This is not obstructing. The small lesion within th e upper pole of the left kidney seen on the ultrasound examinati on measures approximately 6 mm does not enhance. It is fat densit y and therefore most likely represents a small angiomyolipom a. Stomach and bowel: The patient is statu s post gastric surgery. Appendix: No evidence of appendicitis. Intraperitoneal space: Unremarkable. No free air. No significant fluid collection. Vasculature: Unremarkable. No abdominal aortic aneurysm. PAGE 1 Signed Report (CONTINUED) Lymph nodes: No enlarged lymph nodes. Urinary bladder: The urinary bladder is unremarkable. Reproductive: There is an enlarged leio myomatous uterus. There is a right ovarian cyst measuring 2 cm. The left ovary is within normal limits. Bones/joints: There are degenerative ch anges of the thoracic and lumbar spines. Soft tissues: Unremarkable. IMPRESSION: 1. The small renal lesion seen on ultra sound examination represents a small angiomyolipoma. No f urther workup is necessary. Right nephrolithiasis withou t evidence of obstruction. 2. Status post gastric surgery. 3. Enlarged leiomyomatous uterus. 4. Liver cysts as above. 5. Osseous findings as above. REPORT SIGNED IN OTHER VENDOR SYSTEM 02/18/2020 Reported By: Dudley Padgett MD CC: Transcribed Date/Time: 02/18/2020 (1211 ) Adult Specialist: Printed Date/Time: 02/18/2020 (8146) PAGE 2 Signed Report Performing Organization Address City/State/ZIP Code Phon e Number [facility] documented in this encounter Visit Diagnoses Not on filedocumented in this encounter Care Teams Undercutter Operator Relationship Specialty Start Date End Date Soraya Lovett MD PCP - General 12/12/13 05/06/21 [address] [place] [address] Toyin Frias NP PCP - General 05/07/21 [address] [place] [phone] documented as of this encounter
--- OUTSIDE RECORDS SUMMARY | 2021-10-09 00:08 | XMS_ITS | Encounter Summary ---
:1975 Author Organization [facility] Address [address] [place] [address] Care Team Providers Name Role Phone Soraya Lovett MD Primary Care Provider Encounter Details Date Type Department Care Team Description 12/01/2020 Results Only [facility] Izzy Rogers PA [phone] [address] [place], [place] [address] (Wo rk) Social History Tobacco Use Types [...] Office Visit [place] [address] [place] [phone] (Wo rk) documented as of this encounter Procedures Procedure Name Priority Date/Time Associated Comments Diagnosis POCT URINALYSIS Routine 12/01/2020 15:03 Results for this EDT procedure are i n the results section. BACTERIAL CULTURE, Routine 12/01/2020 15:00 Resul ts for this URINE EDT procedure are i n the results section. documented in this encounter Results POCT URINALYSIS (12/01/2020 15:03 EDT) URINE APPEARANCE - Clear CLEAR [facility] URINE BILIRUBIN - Negative NEGATIVE [facility] DIPSTICK [facility] URINE BLOOD - [facility] Negative NEGATIVE [facility] URINE COLOR - [facility] Yellow YELLOW [facility] URINE GLUCOSE - Negative NEGATIVE [facility] DIPSTICK [facility] URINE KETONE - [facility] Negative NEGATIVE [facility] URINE LEUK ESTERASE - Trace NEGATIVE [facility] URINE NITRITE - Negative NEGATIVE [facility] DIPICK [facility] URINE PH - [facility] 6.5 () [facility] URINE PROTEIN - Negative [facility] URINE SPECIFIC GRAVITY 1.025 () [facility] URINE UROBILINOGEN - 0.2 0.2 - 1.0 EU/DL [facility] Specimen Performing Organization Address City/State/ZIP Code Phon e Number [facility] [address] [place] [address] BACTERIAL CULTURE, URINE (12/01/2020 15:00 EDT) STAPHYLOCOCCUS SP STAPHYLOCOCCUS SP [facility] COAG NEG - [facility] COAG NEG [facility] COLONY COUNT >100,000 CFU/ML [facility] Specimen Urine Narrative [facility] - 021 7:34 EDT Does PT Have a Latex Allergy? NO Organism Antibiotic Method Susceptibility Staphylococcus sp coag neg Cefpodoxime GRAM POSITIVE Resis tant SUSCEPTIBILITY - [facility] Staphylococcus sp coag neg Nitrofurantoin GRAM POSITIVE <=16: Susceptible SUSCEPTIBILITY - [facility] Staphylococcus sp coag neg Levofloxacin GRAM POSITIVE 1: [place] sceptible SUSCEPTIBILITY - [facility] Staphylococcus sp coag neg Oxacillin GRAM POSITIVE 0.5: Resistant SUSCEPTIBILITY - [facility] Staphylococcus sp coag neg Tetracycline GRAM POSITIVE 2: [place] sceptible SUSCEPTIBILITY - [facility] Staphylococcus sp coag neg Vancomycin GRAM POSITIVE 1: [place] sceptible SUSCEPTIBILITY - [facility] Staphylococcus sp coag neg Linezolid GRAM POSITIVE 4: [place] sceptible SUSCEPTIBILITY - [facility] Comment: N39.0 Performing Organization Address City/State/ZIP Code Phon e Number [facility] [address] [place] [address] documented in this encounter Visit Diagnoses Not on filedocumented in this encounter Care Teams Head Of Acquisitions Relationship Specialty Start Date End Date Soraya Lovett MD PCP - General 12/12/13 05/06/21 [address] [place], [place] [phone] documented as of this encounter
--- OUTSIDE RECORDS SUMMARY | 2021-10-09 00:08 | XMS_ITS | Encounter Summary ---
:1975 Author Organization [facility] Address [address] [place] [address] Care Team Providers Name Role Phone Soraya Lovett MD Primary Care Provider Toyin Frias NP Primary Care Provider Encounter Details Date Type Department Care Team Description 06/12/2020 Lab Requisition [facility] Outr Resulting Lab, Pathology & Laboratory Provider [facility] [address] [place] [phone] Social History Tobacco Use Types Packs/Day Years [...] Office Visit Orthopedic Surgery Derrell Baig MD [address] [place] [address] (Wo rk) documented as of this encounter Procedures Procedure Name Priority Date/Time Associated Diagnosis Comme nts OVA/PARASITE EXAM Routine 06/12/2020 9:00 EDT Res ults for this procedure are i n the results section. documented in this encounter Results OVA/PARASITE EXAM (06/12/2020 9:00 EDT) Pathologist Sig nature Parasite No ova and parasites [facility] seen. LABORATORY SERVICES Specimen Feces - Specimen from rectum (specimen) Narrative [facility] LABORATORY SERVICES - 06/13/2020 13:08 EDT (If Cryptosporidium, Cyclospora, or Micr osporidium are suspected, specific tests must be requested.) Single negative specimen does not rule out the possibility of a parasitic infection. Performing Organization Address City/State/ZIP Code Phon e Number [facility]ORATORY [address] [place] [address] SERVICES documented in this encounter Visit Diagnoses Not on filedocumented in this encounter Care Teams Flight Follower Relationship Specialty Start Date End Date Soraya Lovett MD PCP - General 12/12/13 05/06/21 [address] [place] [address] Toyin Frias NP PCP - General 05/07/[address] [place] [phone] documented as of this encounter
--- OUTSIDE RECORDS SUMMARY | 2021-10-09 00:08 | XMS_ITS | Encounter Summary ---
:1975 Author Organization [facility] Address [address] [place] [address] Care Team Providers Name Role Phone Soraya Lovett MD Primary Care Provider Encounter Details Date Type Department Care Team Description 05/26/2020 Travel Social History Tobacco Use Types Packs/Day [...] Office Visit Orthopedic Surgery Derrell Baig MD [address] [place] [address] [place] [phone] (Wo rk) documented as of this encounter Visit Diagnoses Not on filedocumented in this encounter Care Teams Software Engineer Mobile Relationship Specialty Start Date End Date Soraya Lovett MD PCP - General 12/12/13 05/06/[address] [place] [phone] documented as of this encounter
--- OUTSIDE RECORDS SUMMARY | 2021-10-09 00:08 | XMS_ITS | Encounter Summary ---
:1975 Author Organization [facility] Address [address] [place] [address] Care Team Providers Name Role Phone Soraya Lovett MD Primary Care Provider Encounter Details Date Type Department Care Team Description 02/20/2020 Travel Social History Tobacco Use Types Packs/Day [...] Office Visit Orthopedic Surgery Derrell Baig MD [facility] [address] [place] [address] (Wo rk) documented as of this encounter Visit Diagnoses Not on filedocumented in this encounter Care Teams Conveyor Operator Relationship Specialty Start Date End Date Soraya Lovett MD PCP - General 12/12/13 05/06/21 [address] [place] [address] documented as of this encounter
--- OUTSIDE RECORDS SUMMARY | 2021-10-09 00:08 | XMS_ITS | Encounter Summary ---
:1975 Author Organization [facility] Address [address] [place] [address] Care Team Providers Name Role Phone Soraya Lovett MD Primary Care Provider Encounter Details Date Type Department Care Team Description 02/05/2020 Travel Social History Tobacco Use Types Packs/Day [...] Office Visit Orthopedic Surgery Derrell Baig MD [facility] [address] [place] [address] (Wo rk) documented as of this encounter Visit Diagnoses Not on filedocumented in this encounter Care Teams Physiology Teacher Relationship Specialty Start Date End Date Soraya Lovett MD PCP - General 12/12/13 05/06/21 [address] [place] [address] documented as of this encounter
--- OUTSIDE RECORDS SUMMARY | 2021-10-09 00:08 | XMS_ITS | Encounter Summary ---
:1975 Author Organization [facility] Address [address] [place] [address] Care Team Providers Name Role Phone Soraya Lovett MD Primary Care Provider Toyin Frias NP Primary Care Provider Encounter Details Date Type Department Care Team Description 02/15/2020 Results Only Imaging [facility] - Soledad Gilmore, [facility] [place] Resul ts VICE PRESIDENT INVESTOR RELATIONS [address] [place], [place] [address] [place] [address] [phone] (Wo rk) Social History Tobacco Use [...] Visit Orthopedic Surgery Derrell Baig MD [address] [facility] [address] [place] [phone] (Wo rk) documented as of this encounter Procedures Procedure Name Priority Date/Time Associated Diagnosis Comme nts NM BONE WHOLE BODY 02/15/2020 12:00 Resul ts for this SINGLE ZONE WITH EST procedure a re in SPECT/CT the results section. documented in this encounter Results NM BONE WHOLE BODY WITH SINGLE ZONE SPECT W CT (02/15/2020 12:00 EST) Specimen Narrative [facility] RADIOLOGY - 02/15/2020 12:00 EST ? EXAM: NUCLEAR MEDICINE/BONE SPECT WITH WH EX. D/ ([id number]) ? CLINICAL INFORMATION: ? M54.5 CHRONIC (L) SIDED LOW BACK PAIN ? W/O SCIATICA ? R/O FACET ARTHROPATHY ? INDICATION: M54.5 CHRONIC (L) GRUPO ED LOW BACK PAIN, W/O SCIATICA , R/O ? FACET ARTHROPATHY. ? TECHNIQUE: Radionuclide SPECT sca n of the lumbar spine with total ? body bone scan was performed with 21.0 mCi of technetium 99m MDP. ? Low-dose CT scan was utilized for localization purposes. ? COMPARISON: None. ? FINDINGS: ? FUSED SPECT: Mild degenerative sp ondylosis of the lumbar spine. Mild ? increased radiotracer uptake with in the endplates at the L2-L3 and ? L3-L4 disc space levels, anterola teral on the right. Increased ? radiotracer uptake within the lef t L4 pedicle and L4-L5 facet joint. ? Focal area of increased radiotrac er uptake within the inferior aspect ? of the right sacroiliac joint, li beata degenerative. ? TOTAL BODY BONE SCAN: Increased r adiotracer uptake is present within ? both knee joints consistent with osteoarthritis. This could be ? further characterized with conven tional radiography. Radiotracer ? uptake throughout the remainder o f the skeleton is normal. ? LOCALIZING LOW-DOSE CT SCAN: Low- density lesion measuring 2.7 cm cyst ? within the right hepatic lobe. En larged lobulated uterus consistent ? with uterine fibroids. Right adne xal cysts measuring 3.5 cm, likely ? ovarian. Densely sclerotic lesion within the L4 vertebral body ? without increased radiotracer upt sourav is consistent with bone island. ? IMPRESSION: ? 1. Mild degenerative spondylosis of the lumbar spine with increased ? radiotracer uptake in the endplat es at L2-L3 and L3-L4 as well as ? within the left L4 pedicle and L4 -L5 facet joint. ? 2. Increased radiotracer uptake w ithin both knees consistent with ? osteoarthritis. This could be fur ther characterized with conventional ? radiography. ? 3. Right hepatic lobe cyst, multi fibroid uterus and right adnexal ? cyst measuring 3.5 cm, likely ova ignacio. ? REPORT SIGNED IN OTHER VENDOR SYSTEM 02/15/2020 ?Reported B y: Reynaldo Bautista MD ? CC: Gail Gilmore PRINTING GRAY CLOTH TENDER-BC ? Transcribed Date/Time: 02/15/2020 (1200) ? Desulfurizer Hand: ? Printed Date/Time: 02/15/2020 (12 17) ? PAGE 1 ? Shantelle d Report ? Procedure Note Reynaldo Bautista MD - 0 EXAM: NUCLEAR MEDICINE/BONE SPECT WITH WH EX. D/ ([id number]) CLINICAL INFORMATION: M54.5 CHRONIC (L) SIDED LOW BACK PAIN W/O SCIATICA R/O FACET ARTHROPATHY INDICATION: M54.5 CHRONIC (L) SIDED LOW BACK PAIN, W/O SCIATICA , R/O FACET ARTHROPATHY. TECHNIQUE: Radionuclide SPECT scan of t he lumbar spine with total body bone scan was performed with 21.0 mCi of technetium 99m MDP. Low-dose CT scan was utilized for local ization purposes. COMPARISON: None. FINDINGS: FUSED SPECT: Mild degenerative spondylo sis of the lumbar spine. Mild increased radiotracer uptake within the endplates at the L2-L3 and L3-L4 disc space levels, anterolateral on the right. Increased radiotracer uptake within the left L4 p edicle and L4-L5 facet joint. Focal area of increased radiotracer upt sourav within the inferior aspect of the right sacroiliac joint, likely d egenerative. TOTAL BODY BONE SCAN: Increased radiotr acer uptake is present within both knee joints consistent with osteoa rthritis. This could be further characterized with conventional radiography. Radiotracer uptake throughout the remainder of the skeleton is normal. LOCALIZING LOW-DOSE CT SCAN: Low-densit y lesion measuring 2.7 cm cyst within the right hepatic lobe. Enlarged lobulated uterus consistent with uterine fibroids. Right adnexal cy sts measuring 3.5 cm, likely ovarian. Densely sclerotic lesion withi n the L4 vertebral body without increased radiotracer uptake is consistent with bone island. IMPRESSION: 1. Mild degenerative spondylosis of the lumbar spine with increased radiotracer uptake in the endplates at L2-L3 and L3-L4 as well as within the left L4 pedicle and L4-L5 fa cet joint. 2. Increased radiotracer uptake within both knees consistent with osteoarthritis. This could be further c haracterized with conventional radiography. 3. Right hepatic lobe cyst, multi fibro id uterus and right adnexal cyst measuring 3.5 cm, likely ovarian. REPORT SIGNED IN OTHER VENDOR SYSTEM 02/15/2020 Reported By: Reynaldo Bautista MD CC: Gail Gilmore Transcribed Date/Time: 02/15/2020 (1200 ) Desulfurizer Hand: Printed Date/Time: 02/15/2020 (2791) PAGE 1 Signed Report Performing Organization Address City/State/ZIP Code Phon e Number [facility] RADIOLOGY documented in this encounter Visit Diagnoses Not on filedocumented in this encounter Care Teams Home School Teacher Relationship Specialty Start Date End Date Soraya Lovett MD PCP - General 12/12/13 05/06/21 [address] [place] [address] Toyin Frias NP PCP - General 05/07/21 [address] [place] [phone] documented as of this encounter
--- OUTSIDE RECORDS SUMMARY | 2021-10-09 00:08 | XMS_ITS | Encounter Summary ---
:1975 Author Organization [facility] Address [address] [place] [address] Care Team Providers Name Role Phone Soraya Lovett MD Primary Care Provider Encounter Details Date Type Department Care Team Description 04/12/2019 Travel Social History Tobacco Use Types Packs/Day [...] Visit Orthopedic Surgery Derrell Baig MD [address] [place] [address] [place] [phone] (Wo rk) documented as of this encounter Visit Diagnoses Not on filedocumented in this encounter Care Teams Guide Dog Trainer Relationship Specialty Start Date End Date Soraya Lovett MD PCP - General 12/12/13 05/06/21 [address] [place], [place] [address] documented as of this encounter
--- OUTSIDE RECORDS SUMMARY | 2021-10-09 00:08 | XMS_ITS | Encounter Summary ---
:1975 Author Organization [facility] Address [address] [place] [address] Care Team Providers Name Role Phone Soraya Lovett MD Primary Care Provider Encounter Details Date Type Department Care Team Description 09/28/2019 Results Only [facility] Toyin Gilbert NP Lab - Main [place] [address] [facility] [address] [place], [place] [phone] (Wo rk) Social History Tobacco Use [...] Visit Orthopedic Surgery Derrell Baig MD [address] [facility] [address] [place] [address] (Wo rk) documented as of this encounter Procedures Procedure Name Priority Date/Time Associated Diagnosis Comme nts FREE T4 POC - [facility] Routine 09/28/2019 15:36 Resul ts for this EDT procedure are i n the results section. documented in this encounter Results FREE T4 POC - [facility] (09/28/2019 15:36 EDT) FREE T4 - [facility] 0.66Comment: THE 0.58 - [address] [facility] RESULTS OF THIS NG/DL [facility] ASSAY CAN BE FALSELY ELEVATED DUE TO THE CONSUMPTION OF BIOTIN Specimen Narrative [facility] - 020 15:36 EDT CHRONIC RENAL IMPAIRMENT IS DEFINED GFR <60 MULTIPLY RESULT BY 1.210 FOR ENRIQUE RICAN PATIENTS EGFR CALCULATED USING THE IDMS-TRACEABLE MDRD STUDY Performing Organization Address City/State/ZIP Code Phon e Number [facility] [address] [place] [address] documented in this encounter Visit Diagnoses Not on filedocumented in this encounter Care Teams Housekeeping Director Relationship Specialty Start Date End Date Soraya Lovett MD PCP - General 12/12/13 05/06/21 [address] [place], [place] [id number] documented as of this encounter
--- OUTSIDE RECORDS SUMMARY | 2021-10-09 00:08 | XMS_ITS | Encounter Summary ---
:1975 Author Organization [facility] Address [address] [place] [address] Care Team Providers Name Role Phone Soraya Lovett MD Primary Care Provider Reason for Visit Reason Onset Date Comments Results 11/05/2019 Covid Encounter Details Date Type Department Care Team Description 11/05/2019 Telephone [facility] - [facility] Sahara Bowles NP Results (Covid) [facility] [place] [address] [place] [address] [address] [phone] [place] [address] (Wo rk) Social History Tobacco Use Types [...] this encounter Miscellaneous Notes Telephone Encounter - Sahara Kruger APRN - 11/05/2019 0904 EDT Relayed negative COVID result. Still asymptomatic. She had no questions. documented in this encounter Plan of Treatment Upcoming Encounters Date Type Specialty Care Team Description 01/08/2022 Office Visit Orthopedic Surgery Derrell Baig MD [address] [phone] (Wo rk) documented as of this encounter Visit Diagnoses Not on filedocumented in this encounter Care Teams Receptionist Secretary Relationship Specialty Start Date End Date Soraya Lovett MD PCP - General 12/12/13 05/06/21 [address] [place], [place] [address] documented as of this encounter
--- OUTSIDE RECORDS SUMMARY | 2021-10-09 00:08 | XMS_ITS | Encounter Summary ---
:1975 Author Organization [facility] Address [address] [place] [address] Care Team Providers Name Role Phone Soraya Lovett MD Primary Care Provider Encounter Details Date Type Department Care Team Description 09/28/2019 Results Only [facility] Toyin Gilbert NP Lab - Main [place] [address] [facility] [address] [address] [place], [place] [phone] (Wo rk) Social History Tobacco Use [...] Visit Orthopedic Surgery Derrell Baig MD [address] [facility] [address] [place] [address] (Wo rk) documented as of this encounter Procedures Procedure Name Priority Date/Time Associated Comments Diagnosis COMPREHENSIVE Routine 09/28/2019 15:36 Results fo r this METABOLIC POC - [facility] EDT procedu re are in the results section. documented in this encounter Results (ABNORMAL) COMPREHENSIVE METABOLIC [facility] (09/28/2019 15:36 EDT) Pathologist Sig nature ALBUMIN - [facility] 4.2 3.50 - 5.00 [facility] G[facility] ALKALINE PHOSPHATASE - 57 38.00 - 126.00 [facility] BILIRUBIN TOTAL 0.2 0.20 - 1.30 [facility] BUN - [facility] 12 7.00 - 20.00 [facility] CALCIUM - [facility] 9.3 8.50 - 10.50 [facility] Chloride 102 98.00 - 107.00 [facility] MM[facility] CO2 Total 26 22.00 - 30.00 [facility] MM[facility] CREATININE 0.6 (L) 0.70 - 1.50 [facility] MG[facility] Anion Gap 8 7 - 17 [facility] GLUCOSE - [facility] 98 70.00 - 100.00 [facility] Potassium 3.9 3.50 - 5.10 [facility] Sodium 136 (L) 137.00 - 145.00 [facility] MM[facility] TOTAL PROTEIN - [facility] 6.8 6.30 - 8.20 [facility] SGOT/AST - [facility] 22 15.00 - 46.00 [facility] SGPT/ALT - [facility] 18 0.00 - 35.00 [facility] Specimen Narrative [facility] - 020 15:36 EDT CHRONIC RENAL IMPAIRMENT IS DEFINED GFR <60 MULTIPLY RESULT BY 1.210 FOR ENRIQUE RICAN PATIENTS EGFR CALCULATED USING THE IDMS-TRACEABLE MDRD STUDY Performing Organization Address City/State/ZIP Code Phon e Number [facility] [address] [place] [address] documented in this encounter Visit Diagnoses Not on filedocumented in this encounter Care Teams Film Loader Relationship Specialty Start Date End Date Soraya Lovett MD PCP - General 12/12/13 05/06/21 [address] [place] [address] documented as of this encounter
--- OUTSIDE RECORDS SUMMARY | 2021-10-09 00:08 | XMS_ITS | Encounter Summary ---
:1975 Author Organization [facility] Address [address] [place] [address] Care Team Providers Name Role Phone Soraya Lovett MD Primary Care Provider Reason for Visit Reason Onset Date Comments Other 11/02/2019 COVID-19 11/02/2019 Encounter Details Date Type Department Care Team Description 11/02/2019 Telephone [facility] - [facility] Josephine Engel RN Other; COVID-19 [facility] Family Medicine - [address] [phone] Social History Tobacco Use Types Packs/Day Years [...] this encounter Miscellaneous Notes Telephone Encounter - Renata Alvarez - 11/03/2019 1103 EDT Rubber Cutter called and left message for patient to call covid line at [phone] to get scheduled for testing. elephone Encounter - Eduardo Petersen - 11/03/2019 1041 EDT Patient would like to try and get scheduled at the [facility]. Earliest [facility] can schedule is11/05 at 10:30am. elephone Encounter - Josephine Engel RN - 11/02/2019 1552 EDT Sat nov 02 is day 7 of quarentine. Asymptomatic. Would like testing documented in this encounter Plan of Treatment Upcoming Encounters Date Type Specialty Care Team Description 01/08/2022 Office Visit Orthopedic Surgery Derrell Baig MD [address] [place] [address] (Wo rk) documented as of this encounter Results COVID-19 TESTING (11/03/2019 15:55 EDT) COVID-19 rt-PCR NEGATIVE Negative [facility] Result Comment: LABORATORY 2019-novel Coronavirus (2019 -nCoV) [...] Administration's Emergency Use Authorization. Performing Lab [facility] LABORATORY SERVICES Specimen Swab - Entire nasopharynx (body structur e) Performing Organization Address City/State/ZIP Code Phon e Number [facility] [address] [place] [address] SERVICES [facility] [place], [place] documented in this encounter Visit Diagnoses Diagnosis Visit for laboratory test - Primary Laboratory examination, unspecified documented in this encounter Care Teams Inside Sales Administrator Relationship Specialty Start Date End Date Soraya Lovett MD PCP - General 12/12/13 05/06/21 [address] [place] [address] documented as of this encounter
--- OUTSIDE RECORDS SUMMARY | 2021-10-09 00:09 | XMS_ITS | Encounter Summary ---
:1975 Author Organization [facility] [place] [address] Care Team Providers Name Role Phone Soraya Lovett MD Primary Care Provider Reason for Visit Reason Comments Follow-up S/P sleeve gastrectomy Encounter Details Date Type Department Care Team Description 05/26/2017 Office Visit General Surgery at Richard Cannon APRN [facility] [place] [address] Disorder of iron metabolism; [facility] Amanda Cooper RD Status post bariatric surgery; [facility] [place] [phone] Social History Tobacco Use Types Packs/Day Years Used Date Never Smoker Smokeless Tobacco: Never Used Alcohol Use Standard Drinks/Week Comments No 0 (1 standard drink = 0.6 oz pure alcoho l) Sex Assigned at Date Recorded Not on file documented as of this encounter Last Filed Vital Signs Vital Sign Reading Time Taken Comments Blood Pressure 147/88 05/26/2017 3:35 PM EDT Pulse 80 05/26/2017 3:35 PM EDT Temperature 36.7 ??C (98 ??F) 05/26/2017 3:35 PM EDT Respiratory Rate 14 05/26/2017 3:35 PM EDT Oxygen Saturation 100% 05/26/2017 3:35 PM EDT Inhaled Oxygen Concentration - - Weight 99.2 kg (218 lb 9.6 oz) 05/26/2017 3:35 PM EDT Height 170.2 cm (5' 7) 05/26/2017 3:35 PM EDT Body Mass Index 34.24 05/26/2017 3:35 PM EDT documented in this encounter Patient Instructions Patient InstructionsAmanda Cooper - 05/26/2017 3:30 PM EDT [facility] Admin coordinator Marisa: [phone] Dietitian: [phone] Surgeons/ nurse practitioner: [phone] Nurse line: [phone] Keep up the great work! Testing: Labwork: Have done soon- will send the requisitions via mail Please note that you will always receive a letter with lab results and recommendations. Please read this letter carefully and follow recommendations. The letter also contains information regarding yournext lab draw. A copy of your labwork and office visit today is sent to your primary caregivers non medical Next visit: January for your 2 year anniversary Routine visits are done at 4.8,12, 18 and 24 months after surgery, and yearly thereafter. Please call [phone] if you do not receive an appointment by 3-4 weeks prior to the expected visit. Medications: recommendations pending labwork. Referrals: Send [facility] a message on Virtual DBS if you would like a referral to the weight and wellness center Vitamins: The following vitamins are recommended: ??? Multivitamins with minerals twice daily- needs to be an under 50 multivitamin that contains iron. No senior multivitamins. (Or read the serving size if taking a Bariatric specific multivitamin such as procare). ??? Vitamin B12 500 mcg by mouth once daily ??? Calcium citrate 600 mg with Vitamin D 400 units twice daily (600 mg in AM and 600 mg in PM- 2 pills twice a day) (or 1 chewable twice a day) ??? Iron with Vitamin C, 50-66 mg once daily (take iron with vitamin C 250 mg to help with absorption) only if you have regular periods, iron deficiency or anemia. Nutrition recommendations: Continue to consume high protein meals and snacks. Start tracking food intake more regularly and try following the pre-op diet for 2 weeks to help kick start weight loss. - Your Daily Goals: ?? 1,000-1,200 calories per day (300 calories per meal, 100 calories per snack, 1-2 snacks per day) ?? 60 grams of protein per day (20 grams per meal) ?? 48-64 oz of non-caloric and hydrating fluids per day (6-8, 8 oz cups) Continue to push fluids to help avoid confusing thirst with hunger. ?? Do not drink with meals- pushes food through more quickly, can cause upset stomach Activity: ??? Aim for 30 minutes of exercise daily, 5 days a week of both cardio and strength training exercises. Alcohol: should be used sparingly, no more than one drink per occasion. Alcohol is a source of emptycalories and can cause ulcers and vitamin and mineral deficiencies. Alcohol is toxic to the liver and is absorbed more quickly after surgery, it stays in the system longer. Studies have noted that there is an increased risk of alcohol dependence after bariatric surgery. Alcohol is not recommended until at least 6-12 months post surgery, and after goal weight has been achieved f non-prescribed drugs and treet drugs is unsafe Anti-inflammatory medications such as Advil, Aleve, Excedrin, Ibuprofen should be used sparingly after gastric bypass, since they increase the risk of ulcer. Call us: ??? If you have concerns. ??? If you have unexplained abdominal pain. ??? if you see blood in your stool or vomit blood ??? If you have prolonged vomiting Post Surgery Support Group: Our post surgery support group meets on the first Tuesday of every month from 1-2 PM at [facility]- no registration required Nutrition and Activity apps- Baritastic, My Fitness Pal, Lose It, My Plate Internet resources: www.Gizmox www.[employer] www.Sand Sign.Perficient www.GiveMeSport.Perficient/blog [facility] facebook page: https://www.facebook.com/[facility] CITY[facility]ariatricSurgery Books & Magazines: - Recipes for Life After Weight Loss Surgery by Torie Naik - Shrink Yourself by Dr Star Judd - Eating Well - www.[employer].Perficient - Cooking Light- www.cookingEximias Pharmaceutical Corporation.Perficient documented in this encounter Progress Notes Amanda Cooper - 05/26/2017 3:30 PM EDT Bariatric Surgery Program Nutrition Progress Note Encounter Type: follow up SUBJECTIVE: Topics Discussed/Patient Concerns: ?? 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 ?? She reports gaining 10-15# over the summer while being unemployed but has since lost the weight she gained. Her calorie intake was pushing upward over the summer and she was consuming larger portions. She scaled back on her calorie intake by switching to low fat products. When she started working in the fall she went back to more structured meals which helped with the weight loss. ?? She realized she wasn't eating lunch while cooking at her new job and was picking on food around her. So she started to make a protein shake to sip on while cooking during lunch and it has been working well. ?? She bought the book, Exodus from Obesity and while reading it she realized she was actually thirsty at times she felt hungry so she started increasing her fluid intake. ?? Reports weight going up and down the same 4#. She would love to lose another 20#. She is interested in doing the pre-op diet. She felt she was very successful on the pre-op diet before surgery and reports losing 30# on it. OBJECTIVE: Date of Bariatric Surgery: 02/03/16 Type of Bariatric Surgery: Laparoscopic Sleeve Gastrectomy Weight History: Date Weight (lbs) HT BMI Comments 265# Highest Weight (patient reported) 08/12/15 262# 66 42.3 Initial program weight 12/23/15 259# 66 41.8 1st pre-op visit 02/03/16 260# EWL % 42 Surgery 02/25/16 232# 21.6% 37.6 1 month post-op 07/14/16 226# 26.4% 36.5 6 months post-op 05/26/17 218# 32.8% 34.2 16 months post-op [place] Body Weight (based on BMI of 25): 154.9# Excess Weight: 104.1# Goal weight: 190# Predicted weight loss with surgery is an estimated 50-70% of excess body weight, which would be a goal weight between 180-207#. 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 She has chickens,ducks, hens, geese, sheep, and rabits. Vitamin/Mineral Supplements (reported by patient): Supplement Type Brand/Form Dosage/Amount Frequency Comments Multivitamin Burlison w/ iron And rx MVI chew 1 Burlison 1x/ day and rx MVI 1x/day Calcium Citracal 2 pills Twice daily Vitamin B12 pill 500 mcg 3x/week Iron Ferrous sulfate 325 mg daily With 500 mg vitamin C, seperate from calcium Vitamin D3 pill 50,000 IU weekly Folic Acid pill 1 daily Food Allergies/Intolerances: none Tracking Intake: She tracks on the [employer] food tracker on and off to make sure she is on track. Daily Oral Intake: Gets up at 2:30am, is at work by 5am, and gets home at 5pm. Breakfast 1 cup fat free cottage cheese with 1/2 cup homemade apple sauce AM Snack When gets to work: carrot sticks with 2tbsp humus Lunch Protein shake with blueberries or peaches, 1 scoop [place] whey powder, unsweetened Argentine yogurt, a little splenda or sometimes 1 tbsp maple syrup, and 2% milk PM Snack Before she leaves work: 1 piece ham and 1 slice cheese with a little mustard On way home from work in car: 1/2 cup egg salad with low fat moran and 6 Triscuit crackers (she feelsthis is more so her dinner meal) Dinner Usually has a small, light dinner when she gets home: Vegetables and maybe piece of cheese or small piece chicken or salmon if her boyfriend is eating it HS Snack None, in bed by 7pm On weekends she has eggs and homemade turkey sausage (from her own birds) for breakfast with her boyfriend, soup for lunch, and a nice meal, usually chicken or protein and vegetables, for dinner Protein/ grams per day: 60-80 grams Calories per day: 8352-7742 kcals Hydrating fluids- oz/ day: She feels she meets 64 oz, uses 32 oz water bottles Soda: Maybe once a week diet [place] and occasional seltzer water ETOH: Maybe once or twice a week she has a beer. While unemployed she was drinking more but seltzer water has been helping her avoid drinking more beer. Caffeine: 24 oz half caf and half decaf coffee with 4 oz milk Sweets: Occasionally has a very small portion, such as 1 cookie, and is satisfied Meals per day: 3/ day ?? Feels full/satisfied after eating: yes ?? Feels hungry []never [x]sometimes []most of the time [] always ?? Drinks with meals: none ?? Practices portion control: yes ?? Spends at least 20 minutes eating each meal: yes, she eats slowly in her car while driving but eats faster at home because her boyfriend eats quickly ?? Has had dumping syndrome: A couple of times awhile ago, she has a few cookies around [place] time and felt lousy and tired Foods/Symptoms: ?? In the past month, pt has vomited/regurgitated: none Exercise: On her feet all day working. Her knees are in really bad shape and she needs to get them replaced. ASSESSMENT: Summary of Weight Loss: Patient's percent excess weight loss is 32.8% which is within the expected post- op bariatric surgeryrange. Weight down 8# x 10 months. Patient is doing well, she was off track over the summer while being unemployed but since starting her new job she has gotten herself back into more structured meals and smaller portions. She is meeting her protein and fluid needs. Her weight loss has been plateaud and she would like to lose more weight. Recommend patient restart tracking her food intake and follow the pre-op diet for 2 weeks to help kick start weight loss. She is compliant with supplements and is active with being on her feet all day at work. NUTRITION INTERVENTION & MONITORING: ?? Provided support/encouragement and reinforced importance of meeting nutritional goals. ?? Reviewed nutrition and vitamin and mineral supplement recommendations (see patient instructions). ?? Written recommendations provided. Patient agreed with these and verbalized adequate understanding. ?? Evaluation by nurse practitioner today. ?? Handouts provided: One Year and Beyond (revised 06/2013) and pre-op diet. Alyse Cannon - 05/26/2017 3:30 PM EDT Reason for visit: follow up S/P laparoscopic sleeve gastrectomy on 02/03/16 Complications summary: Early none Late none Visits summary: Compliance with scheduled BSP follow-up: fair Bariatric surgery graduates support group attendance: none Pre-op 12/23/15 Wt (lbs) 259 BMI 41.8 WT visit #2 260 HT:66 Introductory meeting date: 08/15/15 Post-op Visit date Wt (lbs) BMI %EBW lost Supplement compliance Labwork 02/25/16 232 37.7 21.6 Bariatric fusion 07/14/16 226 36.5 26.4 Flinstones BID, citrical 600 BID FeSO4 325 mg QD D50K/wk Zoila d/c at 3 mo 2nd $ 06/22:CMP nl fast glu 95 TC 194 HDL 56 tg 106 A1c 5.0. D 35 07/14: Hg 12.4 Hct 35.8 ferritin 40 iron 48 sat 16% B12 1590 nl B1 folate prealbumin 32 05/26/17 218 34.2 32 Multi BID Citrical 600 BID FeSO4 325 mg QD (some missed doses) B12 500 QD Folic acid QD D50K/wk 04/28: CMP nl Fast glucose 91. TC 167 HDL 63 tg 85 LDL 87 mg 2.00 05/26: ordered, pending Screening/other Date Evaluation Results 04/2017 Primary care Labwork done 01/16/16 EGD (preop) Esophageal polyp(s) were found. ??Resected and retrieved. A few gastric polyps, appearance ??consistent with fundic gland hyperplastic polyps (benign).??Biopsied. Normal examined duodenum. Esophagus, ??polypectomy: Squamous papilloma. 08/14/07 Colonoscopy Normal, including biopsies. No evidence of inflammatory bowel disease 12/22/13 Pap negative 11/09/13 Mammogram ACR category 1: negative - DEXA Problem List ??? Preoperative Class III obesity BMI 41.8, S/P LSG ??? History of prediabetes: A1c was normal at 5.0 on 06/22/16, off metformin post surgery- fasting glucose April - Preoperative treatment with metformin ??? Musculoskeletal issues: continued injections, unchanged, needs knee replacement, can't take timeoff from work due to new job. Continues treatment with Celebrex, twice yearly monovisc injections - DJD knees, followed by Dr Yadira TALBERT in [place] ??? 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 Admitted for 1 week, unsure if had iv Anticoagulant used in [place], Return to [place], was treated with warfarin,-believes only on for 3-4 months. Etiology was not known until ~1 year after incident, when was evaluated by vascular surgeon ??? Microalbuminuria by POC testing 02/11/2015 ??? IBS, diarrhea predominant: improved post surgery, takes loperamide ~1x a day - Preoperative treatment with loperamide BID, better with less high fat foods, best when on very restricted diet high in salad and raw veggies: - Normal colonoscopy in 2007 ??? Iron deficiency (ferritin 15 on 12/23/15) preoperatively: status unknown, iron screen pending. taking iron supplementation, sometimes stops for a few days due to upset stomach, has trialed a few types of iron ??? Menorrhagia intermittent, had IUD, which was removed in 2014: menses heavy first day of cycle only Past Surgical History Procedure Laterality Date ??? Laparoscopic sleeve gastrectomy (Dr. Padilla) 02/03/2016 ??? Foot surgery Left 2011 [place] procedure ??? Tibia osteotomy Right 2006, 2008 ??? [place] teeth extractions ??? Arthroscopies Bilateral ??? Microfracture procedure knees ??? Carpal tunnel release Bilateral 2009 ??? Partial first rib removal Left 2005 thoracic outlet syndrome Allergies: as per e- Medications 05/26/17 1629 Medication Sig Taking? diclofenac (VOLTAREN) 1 % Gel Apply 2 g topically 4 times daily. Yes acetaminophen (TYLENOL) 500 mg Tablet Take 1,000 mg by mouth every 6 hours as needed for Pain. Yes oxyCODONE-acetaminophen (PERCOCET) 5-325 mg Tablet take 1 tablet by mouth every 6 hours if needed Yes VITAMIN D 50,000 unit Capsule take 1 capsule by mouth every week Yes folic acid (FOLVITE) 1 mg Tablet take 1 tablet by mouth once daily Yes loperamide (IMODIUM A-D) 2 mg Tablet Take by mouth 4 times daily as needed for Diarrhea. Maximum 16 mg in 24 hours Yes CALCIUM CITRATE/VITAMIN D2 (CALCIUM CITRATE WITH D ORAL) Take 600 mg by mouth 2 times daily. Yes CYANOCOBALAMIN, VITAMIN B-12, ORAL Take 500 mcg by mouth daily. Yes ferrous sulfate 325 mg (65 mg iron) Tablet Take 325 mg by mouth daily. Yes ascorbic acid, vitamin C, (VITAMIN C) 500 mg Tablet Take 500 mg by mouth. Yes celecoxib (CELEBREX) 200 mg Capsule Take 200 mg by mouth 2 times daily. Yes multivitamin (THERAGRAN) Tablet Take 1 tablet by mouth 2 times daily. Yes Changes to health/ evaluations/ social history since last visit: as per updated problem list and e-DH. 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, which involves standing all day 5 days a week Subjective. Patient concerns at today's visit: Seng returns for routine follow up at 16 months post surgery. Rashaad lost 8 pounds since her last visit 10 months ago, has had some challenges due to loss of job andgot off track with healthy eating, now back on track with a new job. She has been compliant with supplements with the exception of iron, due to intolerance. Activity remains limited due to DJD both knees. She is considering . Bowel regimen:as noted above NSAID use: twice daily celebrex Dietary history/ exercise/ activity level: See dietitian note. 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 year-old female looks well. Heart: RRR Lungs: CTA bilaterally without wheezing Abdomen: soft, non-tender. Abdominal trocar sites well-healed, without evidence of hernia. Extremities: no edema Vital signs: BP 147/88 Pulse 80 Temp 36.7 ??C (98 ??F) (Oral) Resp 14 Ht 170.2 cm (5' 7) Wt 99.2 kg (218 lb 9.6 oz) SpO2 100% BMI 34.24 kg/m2 Assessment: stable S/P LSG, with loss of 32% of excess body weight. Plan: ?? Seng was congratulated on her efforts to get back on track for healthy eating. She will trial thepreop diet for 2 weeks to jumpstart weight loss. ?? Recent labwork done via primary care office reviewed ?? Next BSP visit: January ?? Next labwork: ordered, to be done locally, pending ?? Additional vitamin and mineral supplement recommendations (*in addition to usual post surgery supplements, as noted below): continue current supplements. Further recommendations pending lab results. ?? dietary/ exercise recommendations per RD ?? Advised to call if develops unexplained abdominal pain, concerns or questions ?? provided with a January 2013 edition of One Year and Beyond bariatric surgery, a resource regarding supplements, diet, recommendations for patients > 1 year post-operatively She was provided with a Bariatric Program Summary report which included the above recommendations, as well as information on vitamin and mineral supplementation, fluids, exercise and support group meetings. She has had an opportunity to have all her questions answered and is in agreement with the plan of care. RECOMMENDED BARIATRIC SURGERY PROGRAM POSTOPERATIVE FOLLOW-UP: Follow up: done at 4, 8,12 and 18 and 24 months, and yearly thereafter. High risk patients are evaluated on a more frequent basis. *Supplement recommendations: Multivitamin with minerals twice a day, B12 500 mcg once a day, calcium citrate 600 mg/400 units vitamin D twice a day, iron (ferrous fumarate, polysaccharide iron taken with vitamin C 250 mg once a day) for menstruating females or those with SAMANTA. Labwork: Hemogram, ferritin, iron (transferrin) saturation, iron, folate, Vitamins B1, B12, D (25 hydroxy only), Intact PTH and comprehensive metabolic profile at 4, 12 and 24 months, and yearly. Prealbumin is done at 4 and 12 months and PRN. If labwork is done by the primary caregivers non medical: please send a copy to the Bariatric Surgery Program, General Surgery Clinic, [facility], attention Alyse Cannon APRN. Questions regarding [facility] Bariatric Surgery Program patients: please call Regina Cannon APRN at [phone] or [phone] beeper [phone]. E-mail: [email or web address] documented in this encounter Plan of Treatment Not on filedocumented as of this encounter Visit Diagnoses Diagnosis Disorder of iron metabolism Other disorders of iron metabolism Status post bariatric surgery Bariatric surgery status Vitamin D deficiency Unspecified vitamin D deficiency documented in this encounter Care Teams Analyst Programmer Relationship Specialty Start Date End Date Soraya Lovett MD PCP - General Family Medicine 12/04/15 [address] [place] [address] documented as of this encounter
--- OUTSIDE RECORDS SUMMARY | 2021-10-09 00:09 | XMS_ITS | Encounter Summary ---
:[address] [facility] Address [address] [place] [address] Care Team Providers Name Role Phone Soraya Lovett MD Primary Care Provider Encounter Details Date Type Department Care Team Description 04/28/[address] [facility] - Soraya Rojo se, MD [facility] [place] [phone] Social History Tobacco Use Types Packs/Day Years Used Date Never Smoker Alcohol Use Standard Drinks/Week Comments Yes 0 (1 standard drink = 0.6 oz pure alcoho l) Sex Assigned at Date Recorded Not on file documented as of this encounter Plan of Treatment Upcoming Encounters Date Type Specialty Care Team Description 01/08/2022 Office Visit Orthopedic Surgery Derrell Baig MD [address] [place] [address] (Wo rk) documented as of this encounter Procedures Procedure Name Priority Date/Time Associated Comments Diagnosis COMPREHENSIVE Routine 04/28/2017 12:43 Results fo r this METABOLIC POC - CV EST procedu re are in the results section. documented in this encounter Results (ABNORMAL) COMPREHENSIVE METABOLIC POC - [facility] (04/28/2017 12:43 EST) Pathologist Sig nature ALBUMIN - CV 4.0 3.50 - 5.00 [facility] G/DL CENTER LAB ALKALINE PHOSPHATASE - 39 38.00 - 126.00 [facility] U/L CENTER LAB BILIRUBIN TOTAL 0.6 0.20 - 1.30 [facility] MG/DL [facility] BUN - [facility] 16 7.00 - 20.00 [facility] MG[facility] CALCIUM - [facility] 9.3 8.50 - 10.50 [facility] MG/DL [facility] Chloride 103 98.00 - 107.00 [facility] MMOL/L [facility] CO2 Total 23 22.00 - 30.00 [facility] MMOL/L [facility] CREATININE 0.6 (L) 0.70 - 1.50 [facility] MG/DL [facility] Anion Gap 14 7 - 17 [facility] GLUCOSE - [facility] 91 70.00 - 100.00 [facility] MG/DL [facility] Potassium 4.0 3.50 - 5.10 [facility] MMOL/L [facility] Sodium 140 137.00 - 145.00 [facility] MMOL/L [facility] TOTAL PROTEIN - [facility] 6.6 6.30 - 8.20 [facility] G[facility] SGOT/AST - [facility] 24 15.00 - 46.00 [facility] U/[facility] SGPT/ALT - [facility] 34 13.00 - 69.00 [facility] U/L [facility] Specimen Performing Organization Address City/State/ZIP Code Phon e Number [facility] [address] [place] [address] [facility] documented in this encounter Visit Diagnoses Not on filedocumented in this encounter Care Teams Bar Manager Relationship Specialty Start Date End Date Soraya Lovett MD PCP - General 12/12/13 05/06/21 [address] [place] [address] documented as of this encounter
--- OUTSIDE RECORDS SUMMARY | 2021-10-09 00:09 | XMS_ITS | Encounter Summary ---
:1975 Author Organization [facility] Address [address] [place] [address] Care Team Providers Name Role Phone Soraya Lovett MD Primary Care Provider Encounter Details Date Type Department Care Team Description 06/17/2016 Historical Results [facility] - Ricardo, Anuj Goff, Only [facility] - [facility] [address] [place] [address] [place] [address] Social History Tobacco Use Types Packs/Day Years Used Date Never Smoker Alcohol Use Standard Drinks/Week Comments Yes 0 (1 standard drink = 0.6 oz pure alcoho l) Sex Assigned at Date Recorded Not on file documented as of this encounter Plan of Treatment Upcoming Encounters Date Type Specialty Care Team Description 01/08/2022 Office Visit Orthopedic Surgery Derrell Baig MD [address] [facility] [address] [place] [address] (Wo rk) documented as of this encounter Procedures Procedure Name Priority Date/Time Associated Diagnosis Comme nts VITAMIN D 25 POC - Routine 06/17/2016 14:42 Resul ts for this [facility] EDT procedure are i n the results section. documented in this encounter Results VITAMIN D 25 POC - [facility] (06/17/2016 14:42 EDT) Pathologist Sig nature VIT D, 25 HYDROXY - 35 30 - 100 NG/ML [facility] Specimen Performing Organization Address City/State/ZIP Code Phon e Number [facility] [address] [place] [address] [facility] documented in this encounter Visit Diagnoses Not on filedocumented in this encounter Care Teams Painter And Decorator Relationship Specialty Start Date End Date Soraya Lovett MD PCP - General 12/12/13 05/06/21 [address] [place] [address] documented as of this encounter
--- OUTSIDE RECORDS SUMMARY | 2021-10-09 00:09 | XMS_ITS | Encounter Summary ---
:1975 Author Organization [facility] Address [address] [place] [address] Care Team Providers Name Role Phone Soraya Lovett MD Primary Care Provider Encounter Details Date Type Department Care Team Description 11/22/2017 Historical Results [facility] - Lynda Herrera, Only [facility] - Main [facility] 130 [facility] [address] [phone] Social History Tobacco Use Types Packs/Day Years Used Date Never Smoker Alcohol Use Standard Drinks/Week Comments Yes 0 (1 standard drink = 0.6 oz pure alcoho l) Sex Assigned at Date Recorded Not on file documented as of this encounter Plan of Treatment Upcoming Encounters Date Type Specialty Care Team Description 01/08/2022 Office Visit Orthopedic Surgery Derrell Baig MD [address] [facility] [address] [place] [address] (Wo rk) documented as of this encounter Procedures Procedure Name Priority Date/Time Associated Diagnosis Comme nts MAGNESIUM POC - Routine 11/22/2017 11:49 Results for this [facility] EDT procedure are i n the results section. documented in this encounter Results MAGNESIUM POC - [facility] (11/22/2017 11:49 EDT) Pathologist Sig nature Magnesium 2.00 1.60 - 2.30 MG/DL [facility] Specimen Performing Organization Address City/State/ZIP Code Phon e Number [facility] [address] LAB documented in this encounter Visit Diagnoses Not on filedocumented in this encounter Care Teams Privacy Compliance Manager Relationship Specialty Start Date End Date Soraya Lovett MD PCP - General 12/12/13 05/06/21 [address] [place] [address] documented as of this encounter
--- OUTSIDE RECORDS SUMMARY | 2021-10-09 00:09 | XMS_ITS | Encounter Summary ---
:1975 Author Organization [facility] Address [address] [place] [address] Care Team Providers Name Role Phone Unavailable Primary Care Provider Unavailable Encounter Details Date Type Department Care Team Description 11/09/2013 Hospital Encounter [facility] - Unknown, Leila townsend [facility] [phone] [place] [address] (Work) [place] [address] Social History Tobacco Use Types Packs/Day Years Used Date Never Assessed Sex Assigned at Date Recorded Not on file documented as of this encounter Discharge Disposition Disposition Code Departure Means Destination Home or Self Usp documented in this encounter Plan of Treatment Upcoming Encounters Date Type Specialty Care Team Description 01/08/2022 Office Visit Orthopedic Surgery Derrell Baig MD [address] [facility] [address] [place], [place] [phone] (Wo rk) documented as of this encounter Visit Diagnoses Not on filedocumented in this encounter
--- OUTSIDE RECORDS SUMMARY | 2021-10-09 00:09 | XMS_ITS | Encounter Summary ---
:1975 Author Organization [facility] [place] [address] Care Team Providers Name Role Phone Soraya Lovett MD Primary Care Provider Encounter Details Date Type Department Care Team Description 12/29/2016 Telephone General Surgery at [facility] [place] [phone] Social History Tobacco Use Types Packs/Day Years Used Date Never Smoker Smokeless Tobacco: Never Used Alcohol Use Standard Drinks/Week Comments No 0 (1 standard drink = 0.6 oz pure alcoho l) Sex Assigned at Date Recorded Not on file documented as of this encounter Miscellaneous Notes Telephone Encounter - Christy Lerner - 12/29/2016 9:44 AM EDT LMOM for Seng to see if she is interested in scheduling a follow-up visit with Alyse Cannon. I asked her to give us a call back to set up an appointment and let her know that I will be mailing her aletter in the mail. documented in this encounter Plan of Treatment Not on filedocumented as of this encounter Visit Diagnoses Not on filedocumented in this encounter Care Teams Refrigeration System Installer Relationship Specialty Start Date End Date Soraya Lovett MD PCP - General Family Medicine 12/04/15 [address] [place] [address] documented as of this encounter
--- OUTSIDE RECORDS SUMMARY | 2021-10-09 00:09 | XMS_ITS | Encounter Summary ---
:1975 Author Organization [facility] Address [address] [place] [address] Care Team Providers Name Role Phone Soraya Lovett MD Primary Care Provider Encounter Details Date Type Department Care Team Description 04/28/2017 Historical Results Only [facility] - Soraya Rojo se, MD [facility] - Main [facility] [address] [facility] [address] [place] [phone] Social History Tobacco Use Types Packs/Day Years Used Date Never Smoker Alcohol Use Standard Drinks/Week Comments Yes 0 (1 standard drink = 0.6 oz pure alcoho l) Sex Assigned at Date Recorded Not on file documented as of this encounter Plan of Treatment Upcoming Encounters Date Type Specialty Care Team Description 01/08/2022 Office Visit Orthopedic Surgery Derrell Baig MD [address] [facility] [address] [place] [phone] (Wo rk) documented as of this encounter Procedures Procedure Name Priority Date/Time Associated Comments Diagnosis POCT CHOLESTEROL LDL Routine 04/28/2017 12:43 Res ults for this ([facility]) EST procedure are i n the results section. documented in this encounter Results POCT CHOLESTEROL LDL ([facility]) (04/28/2017 12:43 EST) Pathologist Sig nature LDL CHOLESTEROL - [facility] 87 60 - 100 mg/dl [facility] Specimen Performing Organization Address City/State/ZIP Code Phon e Number [facility] [address] LAB documented in this encounter Visit Diagnoses Not on filedocumented in this encounter Care Teams Chairman And Chief Executive Officer Relationship Specialty Start Date End Date Soraya Lovett MD PCP - General 12/12/13 05/06/21 [address] [place] [address] documented as of this encounter
--- OUTSIDE RECORDS SUMMARY | 2021-10-09 00:09 | XMS_ITS | Encounter Summary ---
:1975 Author Organization [facility] [place] [address] Care Team Providers Name Role Phone Soraya Lovett MD Primary Care Provider Encounter Details Date Type Department Care Team Description 07/13/2016 Telephone General Surgery at [facility] [place] [phone] Social History Tobacco Use Types Packs/Day Years Used Date Never Smoker Smokeless Tobacco: Never Used Alcohol Use Standard Drinks/Week Comments No 0 (1 standard drink = 0.6 oz pure alcoho l) Sex Assigned at Date Recorded Not on file documented as of this encounter Miscellaneous Notes Telephone Encounter - Marisa Carranza - 07/13/2016 4:28 PM EDT Received notes and labwork from [facility] dated 06/22/16, gave to MQ. documented in this encounter Plan of Treatment Not on filedocumented as of this encounter Visit Diagnoses Not on filedocumented in this encounter Care Teams Vp Celebrity Services Relationship Specialty Start Date End Date Soraya Lovett MD PCP - General Family Medicine 12/04/15 [address] [place] [address] documented as of this encounter
--- OUTSIDE RECORDS SUMMARY | 2021-10-09 00:09 | XMS_ITS | Encounter Summary ---
:1975 Author Organization [facility] Address [address] [place] [address] Care Team Providers Name Role Phone Soraya Lovett MD Primary Care Provider Encounter Details Date Type Department Care Team Description 11/22/[address] [facility] - Lynda Herrera, Only [facility] Lab - Main [facility] [address] [place] [address] [place], [place] [phone] Social History Tobacco Use Types Packs/Day Years Used Date Never Smoker Alcohol Use Standard Drinks/Week Comments Yes 0 (1 standard drink = 0.6 oz pure alcoho l) Sex Assigned at Date Recorded Not on file documented as of this encounter Plan of Treatment Upcoming Encounters Date Type Specialty Care Team Description 01/08/2022 Office Visit Orthopedic Surgery Derrell Baig MD [address] [facility] [address] [place] [address] (Wo rk) documented as of this encounter Procedures Procedure Name Priority Date/Time Associated Comments Diagnosis GLYCOHEMOGLOBIN POC - Routine 11/22/2017 11:49 Re sults for this [facility] EDT procedure are i n the results section. documented in this encounter Results GLYCOHEMOGLOBIN POC - [facility] (11/22/2017 11:49 EDT) Pathologist Sig nature Hemoglobin A1c 5.0 4.0 - 6.0 % [facility] AVG CALCULATED GLUCOSE 87 60 - 115 MG/DL [facility] Specimen Performing Organization Address City/State/ZIP Code Phon e Number [facility] [address] [place] [address] [facility] documented in this encounter Visit Diagnoses Not on filedocumented in this encounter Care Teams Marine Services Technician Relationship Specialty Start Date End Date Soraya Lovett MD PCP - General 12/12/13 05/06/21 [address] [place] [address] documented as of this encounter
--- OUTSIDE RECORDS SUMMARY | 2021-10-09 00:09 | XMS_ITS | Encounter Summary ---
:1975 Author Organization [facility] Address [address] [place] [address] Care Team Providers Name Role Phone Soraya Lovett MD Primary Care Provider Encounter Details Date Type Department Care Team Description 02/05/2015 Hospital Encounter [facility] - Unknown, [facility] [phone] [place] [address] (Work) [place] [address] Social History Tobacco Use Types Packs/Day Years Used Date Never Smoker Alcohol Use Standard Drinks/Week Comments Yes 0 (1 standard drink = 0.6 oz pure alcoho l) Sex Assigned at Date Recorded Not on file documented as of this encounter Medications at Time of Discharge Medication Sig Dispensed Refills Start Date End Date LOPERAMIDE HCL (IMODIUM A-D Take by mouth. 0 04/12/2019 ORAL) documented as of this encounter Discharge Disposition Disposition Code Departure Means Destination Home or Self Alf documented in this encounter Plan of Treatment Upcoming Encounters Date Type Specialty Care Team Description 01/08/2022 Office Visit Orthopedic Surgery Derrell Baig MD [address] [facility] [address] [place], [place] [phone] (Wo rk) documented as of this encounter Visit Diagnoses Not on filedocumented in this encounter Care Teams Velocity Shooter Relationship Specialty Start Date End Date Soraya Lovett MD PCP - General 12/12/13 05/06/21 [address] [place] [address] documented as of this encounter
--- OUTSIDE RECORDS SUMMARY | 2021-10-09 00:09 | XMS_ITS | Encounter Summary ---
:1975 Author Organization [facility] Address [address] [place] [address] Care Team Providers Name Role Phone Soraya Lovett MD Primary Care Provider Encounter Details Date Type Department Care Team Description 01/02/2014 Abstract [facility] ENT - Soraya Lovett MD [address] [place] [phone] (Wo rk) Social History Tobacco Use Types Packs/Day Years Used Date Never Assessed Sex Assigned at Date Recorded Not on file documented as of this encounter Plan of Treatment Upcoming Encounters Date Type Specialty Care Team Description 01/08/2022 Office Visit Orthopedic Surgery Derrell Baig MD 13[address] [facility] [address] [place], [place] [phone] (Wo rk) documented as of this encounter Visit Diagnoses Not on filedocumented in this encounter Care Teams Clerical Adviser Relationship Specialty Start Date End Date Soraya Lovett MD PCP - General 12/12/13 05/06/21 [address] [place] [address] documented as of this encounter
--- OUTSIDE RECORDS SUMMARY | 2021-10-09 00:09 | XMS_ITS | Encounter Summary ---
:1975 Author Organization [facility] Address [address] [place] [address] Care Team Providers Name Role Phone Soraya Lovett MD Primary Care Provider Reason for Visit Reason Comments Mass in the left nostril approx 1 year. pcp tried to freeze and did not work. very irritated for about a week a fter denies bleeding except when picked at.. gradually got bigger at the beginning Encounter Details Date Type Department Care Team Description 01/03/2014 Office Visit [facility] ENT Unknown, Provider, Internal nasal lesion - [place] Ayush Patel MD [address] [place] [address] [address] [place] [phone] (Primary Dx) [address] [place] [address] Social History Tobacco Use Types Packs/Day Years Used Date Never Smoker Alcohol Use Standard Drinks/Week Comments Yes 0 (1 standard drink = 0.6 oz pure alcoho l) Sex Assigned at Date Recorded Not on file documented as of this encounter Last Filed Vital Signs Vital Sign Reading Time Taken Comments Blood Pressure 130/82 01/03/2014 1100 EDT Pulse 74 01/03/2014 1100 EDT Temperature - - Respiratory Rate - - Oxygen Saturation - - Inhaled Oxygen Concentration - - Weight 90.7 kg (200 lb) 01/03/2014 1100 EDT Height 167.6 cm (5' 6) 01/03/2014 1100 EDT Body Mass Index 32.28 01/03/2014 1100 EDT documented in this encounter Progress Notes Ayush Patel MD - 01/03/2014 1116 EDT This is a consult from Soraya Lovett for evaluation of a nasal lesion. HISTORY OF PRESENT ILLNESS: This is a 38-year-old female with a 1-year history of a left internal nasal lesion of mild severity. It becomes irritated, bleeds occasionally when picked at, has gradually gotten bigger, but is otherwise of mild severity, constant. No known modifying factors. She has undergone prior cryotherapy without success. ENT was consulted for definitive therapy. PAST MEDICAL HISTORY: Significant for bowel disease. FAMILY HISTORY: Significant for heart disease, thyroid disease, diabetes, cancer. SOCIAL HISTORY: The patient is a nonsmoker. She has drug allergies to VICODIN. CURRENT MEDICATIONS: Include Imodium. REVIEW OF SYSTEMS: Significant for joint pain. Otherwise, negative for a complete review of all systems. PHYSICAL EXAM: General: Well-developed, well-nourished, alert, oriented, and cooperative adult female in no acute distress. Normal voice. Vital signs: Height 66 inches, weight 200 pounds, blood pressure 130/82, pulse 74. Pain level 4. The face is normal without lesions. No tenderness. Salivary glands are normal. Facial strength is symmetric. Eye exam is normal. Nose: Nasal dorsum is midline. The airway is patent. There is a small, round, firm lesion on the left internal nose along the columella. Fiberoptic nasal endoscopy was performed, and this shows lesion to be smooth, firm, fibrous, hyperkeratotic. No verrucous or frond- like projections. The rest of the nasal mucosa was within normal limits. Oral cavity is clear. Posterior pharynx is clear. Neck: No pathologic lymphadenopathy. Trachea is midline. Thyroid is normal. Chest is clear to auscultation. Heart: Regular rate and rhythm. IMPRESSION: Left nasal lesion. PLAN: Treatment options were discussed with the patient, and she has opted for excision and cautery.This will be scheduled as an outpatient procedure in the office under local anesthesia. cc: Soraya Lovett documented in this encounter Plan of Treatment Upcoming Encounters Date Type Specialty Care Team Description 01/08/2022 Office Visit Orthopedic Surgery Derrell Baig MD [address] [facility] [address] [place] [address] (Wo rk) documented as of this encounter Visit Diagnoses Diagnosis Internal nasal lesion - Primary Other diseases of nasal cavity and sinus es documented in this encounter Historical Medications This list may reflect changes made after this encounter. Medication Sig Dispensed Refills Start Date End Date LOPERAMIDE HCL (IMODIUM A-D Take by mouth. 0 04/12/2019 ORAL) added in this encounter Care Teams Meter Repair Shop Supervisor Relationship Specialty Start Date End Date Soraya Lovett MD PCP - General 12/12/13 05/06/21 [address] [place] [address] documented as of this encounter
--- OUTSIDE RECORDS SUMMARY | 2021-10-09 00:09 | XMS_ITS | Encounter Summary ---
:1975 Author Organization [facility] Address [address] [place] [address] Care Team Providers Name Role Phone Soraya Lovett MD Primary Care Provider Encounter Details Date Type Department Care Team Description 12/12/2013 Historical Results Only [facility] - Soraya Rojo se, MD [facility] Lab - Main [address] [phone] Social History Tobacco Use Types Packs/Day Years Used Date Never Assessed Sex Assigned at Date Recorded Not on file documented as of this encounter Plan of Treatment Upcoming Encounters Date Type Specialty Care Team Description 01/08/2022 Office Visit Orthopedic Surgery Derrell Baig MD [address] [facility] [address] [place], [place] [phone] (Wo rk) documented as of this encounter Procedures Procedure Name Priority Date/Time Associated Diagnosis Comme nts PAP TEST Routine 12/12/2013 9:57 EDT Results for this procedure are i n the results section . documented in this encounter Results PAP TEST (12/12/2013 9:57 EDT) Specimen Narrative [facility] - 014 9:08 EDT Name: VANNA MUSE ? : 71 ?Age/Sex: 43/F ?Unit#: [id number] ? Loc: LAB.OPX ? Status: REG REF ?? Reg Date: 12/12/13 ? Pt.Phone Number : ? Specimen: [id number] ?STA TUS: SOUT ?Spec Date:12/12/13 ? Physician Copies: ?Soraya Lovett MD ? Tissues: ? Cervical/Endo Pap ? CPT: 56501 ?? Units: ??1 ? CYTOLOGY DIAGNOSIS SPECIMEN ADEQUACY: ?Satisfactory for evaluation. Transformation zone component present. 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 ORDER QUERIES: LMP: 12/12/13- ?Preg nant? ?? Post ?PREVIOUS ATYPICAL: ?? BCP/HRT? ?? Rad Rx? ?? IUD? Y ??PAP PLU S HPV?REFLEX TO HR-HPV IF ASCUS Y REFLEX TO HPV 16/18 IF HPV POS/PAP NEG Y HPV REGARDLESS?RFLX HPV IF LSIL ?? Signed Shell Jimenez CT(ASCP) 12/17/13 By the signature above, the attending ph ysician certifies that he/she has personally conducted a gross and/or microscopic exa mination of the described specimens and rendered or confirmed the above diagnosi s. [facility], [address] [facility] [address] Citizen Participation Specialist: Jess Fleming MD PHD Performing Organization Address City/State/ZIP Code Phon e Number [facility] [address] [place] [address] [facility] documented in this encounter Visit Diagnoses Not on filedocumented in this encounter Care Teams Group Home Supervisor Relationship Specialty Start Date End Date Soraya Lovett MD PCP - General 12/12/13 05/06/21 [address] [place], [place] [address] documented as of this encounter
--- OUTSIDE RECORDS SUMMARY | 2021-10-09 00:09 | XMS_ITS | Encounter Summary ---
:1975 Author Organization [facility] Address [address] [place] [address] Care Team Providers Name Role Phone Soraya Lovett MD Primary Care Provider Encounter Details Date Type Department Care Team Description 04/28/2017 Historical Results Only [facility] - Soraya Rojo se, MD [facility] - Main [place] [phone] Social History Tobacco Use Types Packs/Day Years Used Date Never Smoker Alcohol Use Standard Drinks/Week Comments Yes 0 (1 standard drink = 0.6 oz pure alcoho l) Sex Assigned at Date Recorded Not on file documented as of this encounter Plan of Treatment Upcoming Encounters Date Type Specialty Care Team Description 01/08/2022 Office Visit Orthopedic Surgery Derrell Baig MD [address] [facility] [address] [place] [address] (Wo rk) documented as of this encounter Procedures Procedure Name Priority Date/Time Associated Diagnosis Comme nts LIPID PANEL POC - Routine 04/28/2017 12:43 Result s for this [facility] EST procedure are i n the results section. documented in this encounter Results (ABNORMAL) LIPID PANEL POC - [facility] (04/28/2017 12:43 EST) Pathologist Sig nature Triglyceride 85 0.00 - 150.00 MG/DL [facility] Cholesterol 167 0.00 - 200.00 MG/DL [facility] HDL 63 (H) 40.00 - 60.00 MG/DL [facility] Specimen Performing Organization Address City/State/ZIP Code Phon e Number [facility] [address] [place] [address] [facility] documented in this encounter Visit Diagnoses Not on filedocumented in this encounter Care Teams Bottom Turning Lathe Turner Relationship Specialty Start Date End Date Soraya Lovett MD PCP - General 12/12/13 05/06/21 [address] [place] [address] documented as of this encounter
--- OUTSIDE RECORDS SUMMARY | 2021-10-09 00:09 | XMS_ITS | Encounter Summary ---
:1975 Author Organization [facility] Address [address] [place] [address] Care Team Providers Name Role Phone Soraya Lovett MD Primary Care Provider Encounter Details Date Type Department Care Team Description 11/19/2016 Historical Results [facility] - Lynda Herrera, Only [facility] - Main [facility] 130 [facility] [address] [phone] Social History Tobacco Use Types Packs/Day Years Used Date Never Smoker Alcohol Use Standard Drinks/Week Comments Yes 0 (1 standard drink = 0.6 oz pure alcoho l) Sex Assigned at Date Recorded Not on file documented as of this encounter Plan of Treatment Upcoming Encounters Date Type Specialty Care Team Description 01/08/2022 Office Visit Orthopedic Surgery Derrell Baig MD [address] [facility] [address] [place] [address] (Wo rk) documented as of this encounter Procedures Procedure Name Priority Date/Time Associated Diagnosis Comme nts POCT DRUG SCREEN, Routine 11/19/2016 11:32 Result s for this URINE EDT procedure are i n the results section. documented in this encounter Results POCT DRUG SCREEN, URINE (11/19/2016 11:32 EDT) Pathologist Sig nature BUPRENORPHINE POC - [facility] NEGATIVE NEGATIVE [facility] Specimen Performing Organization Address City/State/ZIP Code Phon e Number [facility] [address] LAB documented in this encounter Visit Diagnoses Not on filedocumented in this encounter Care Teams Audit Tech Relationship Specialty Start Date End Date Soraya Lovett MD PCP - General 12/12/13 05/06/21 [address] [place] [address] documented as of this encounter
--- OUTSIDE RECORDS SUMMARY | 2021-10-09 00:09 | XMS_ITS | Encounter Summary ---
:1975 Author Organization [facility] [place] [address] Care Team Providers Name Role Phone Soraya Lovett MD Primary Care Provider Encounter Details Date Type Department Care Team Description 02/08/2016 Telephone General Surgery at [facility] Markel Herrera MD [facility] [place] [address] GENERAL SURGERY [phone] [place], [place] [address] (Wo rk) Social History Tobacco Use Types Packs/Day Years Used Date Never Smoker Smokeless Tobacco: Never Used Alcohol Use Standard Drinks/Week Comments No 0 (1 standard drink = 0.6 oz pure alcoho l) Sex Assigned at Date Recorded Not on file documented as of this encounter Miscellaneous Notes Telephone Encounter - Markel Herrera MD - 02/08/2016 4:48 PM EST Pt called to report constipation. She is currently taking miralax while on the liquid oxycodone for pain. She reports that her last BM was 6 days ago. She is otherwise doing well and tolerating PO intake. Recommended increasing her bowel regimen to include senna or colace and try a suppository or enema if she does not have results. Pt demonstrated understanding and will call with any other questions or concerns. MARKEL HERRERA MD documented in this encounter Plan of Treatment Not on filedocumented as of this encounter Visit Diagnoses Not on filedocumented in this encounter Care Teams Engine Wiper Relationship Specialty Start Date End Date Soraya Lovett MD PCP - General Family Medicine 12/04/15 [address] [place] [address] documented as of this encounter
--- OUTSIDE RECORDS SUMMARY | 2021-10-09 00:09 | XMS_ITS | Encounter Summary ---
:1975 Author Organization [facility] Address [address] [place] [address] Care Team Providers Name Role Phone Soraya Lovett MD Primary Care Provider Encounter Details Date Type Department Care Team Description 11/22/2017 Historical Results [facility] - Lynda Herrera, Only [facility] - Main [facility] 130 [facility] [address] [phone] Social History Tobacco Use Types Packs/Day Years Used Date Never Smoker Alcohol Use Standard Drinks/Week Comments Yes 0 (1 standard drink = 0.6 oz pure alcoho l) Sex Assigned at Date Recorded Not on file documented as of this encounter Plan of Treatment Upcoming Encounters Date Type Specialty Care Team Description 01/08/2022 Office Visit Orthopedic Surgery Derrell Baig MD [address] [facility] [address] [place] [address] (Wo rk) documented as of this encounter Procedures Procedure Name Priority Date/Time Associated Comments Diagnosis POCT CHOLESTEROL LDL Routine 11/22/2017 11:49 Res ults for this ([facility]) EDT procedure are i n the results section. documented in this encounter Results POCT CHOLESTEROL LDL ([facility]) (11/22/2017 11:49 EDT) Pathologist Sig nature LDL CHOLESTEROL - [facility] 88 60 - 100 MG/DL [facility] Specimen Performing Organization Address City/State/ZIP Code Phon e Number [facility] [address] [place], [place] [id number] [place] [address] LAB documented in this encounter Visit Diagnoses Not on filedocumented in this encounter Care Teams Medical Office Assistant Relationship Specialty Start Date End Date Soraya Lovett MD PCP - General 12/12/13 05/06/21 [address] [place] [address] documented as of this encounter
--- OUTSIDE RECORDS SUMMARY | 2021-10-09 00:09 | XMS_ITS | Encounter Summary ---
:1975 Author Organization [facility] Address [address] [place] [address] Care Team Providers Name Role Phone Soraya Lovett MD Primary Care Provider Encounter Details Date Type Department Care Team Description 05/25/2018 Historical Results Only [facility] - Soraya Rojo se, [place] [facility] [place] [phone] Social History Tobacco Use Types Packs/Day Years Used Date Never Smoker Alcohol Use Standard Drinks/Week Comments Yes 0 (1 standard drink = 0.6 oz pure alcoho l) Sex Assigned at Date Recorded Not on file documented as of this encounter Plan of Treatment Upcoming Encounters Date Type Specialty Care Team Description 01/08/2022 Office Visit Orthopedic Surgery Derrell Baig MD [address] [facility] [address] [place] [address] (Wo rk) documented as of this encounter Procedures Procedure Name Priority Date/Time Associated Comments Diagnosis LIPID PANEL POC - [facility] Routine 05/25/2018 10:33 R esults for this EDT procedure are i n the results section. COMPREHENSIVE Routine 05/25/2018 10:33 Results fo r this METABOLIC POC - [facility] [place] procedu re are in the results section. THYROID STIM HORMONE Routine 05/25/2018 10:33 Res ults for this POC - [facility] EDT procedure are i n the results section. MAGNESIUM POC - [facility] Routine 05/25/2018 10:33 Res ults for this EDT procedure are i n the results section. CBC W/PLT & DIFF,POINT Routine 05/25/2018 10:33 R esults for this OF [facility] - [facility] [place] procedure are in the results section. POCT CHOLESTEROL LDL Routine 05/25/2018 10:33 Res ults for this ([facility] [place] EDT procedure are i n the results section. documented in this encounter Results THYROID STIM HORMONE POC - [facility] [place] (05/25/2018 10:33 EDT) Pathologist Sig nature THYROID STIM HORMONE 2.26 0.45 - 5.33 [facility] LAB Specimen Performing Organization Address City/[facility] Phon e Number [facility] [address] LAB MAGNESIUM POC - [facility] [place] (05/25/2018 10:33 EDT) Pathologist Sig nature Magnesium 2.10 1.60 - 2.30 MG/DL [facility] LAB Specimen Performing Organization Address City/[facility] Code Phon e Number [facility] [address] LAB LIPID PANEL POC - [facility] [place] (05/25/2018 10:33 EDT) Pathologist Sig nature Triglyceride 103 0.00 - 150.00 MG/DL [facility] Cholesterol 162 0.00 - 200.00 MG/DL [facility] HDL 47 40.00 - 60.00 MG/DL [facility] Specimen Performing Organization Address City/[facility] Code Phon e Number [facility] [address] LAB POCT CHOLESTEROL LDL ([facility] (05/25/2018 10:33 EDT) Pathologist Sig nature LDL CHOLESTEROL - [facility] [place] 94 60 - 100 MG/DL [facility] Specimen Performing Organization Address City/[facility] Code Phon e Number [facility] [address] LAB (ABNORMAL) COMPREHENSIVE METABOLIC POC - [facility] [place] (05/25/2018 10:33 EDT) Pathologist Sig nature ALBUMIN - [facility] [place] [place] 4.0 3.50 - 5.00 [facility] G/DL CENTER LAB ALKALINE PHOSPHATASE - 41 38.00 - 126.00 [facility] [place] [facility] BILIRUBIN TOTAL 0.4 0.20 - 1.30 [facility] MG/DL [place] [facility] BUN - [facility] [place] 18 7.00 - 20.00 [facility] MG/DL [place] [facility] CALCIUM - [facility] [place] 9.7 8.50 - 10.50 [facility] MG/DL [place] [facility] Chloride 106 98.00 - 107.00 [facility] MMOL/L [place] [facility] CO2 Total 27 22.00 - 30.00 [facility] MMOL/L [place] [facility] CREATININE 0.6 (L) 0.70 - 1.50 [facility] MG/DL [place] [facility] Anion Gap 7 7 - 17 MMOL/L [facility] GLUCOSE - [facility] [place] 88 70.00 - 100.00 [facility] MG/DL [place] [facility] Potassium 4.2 3.50 - 5.10 [facility] MMOL/L [place] [facility] Sodium 140 137.00 - 145.00 [facility] MMOL/L [place] [facility] TOTAL PROTEIN - [facility] [place] [place] 6.6 6.30 - 8.20 [facility] G/DL [place] [facility] SGOT/AST - [facility] [place] [place] 19 15.00 - 46.00 [facility] U/[facility] [place] [facility] SGPT/ALT - [facility] [place] 23 13.00 - 69.00 [facility] U/L [place] [facility] Specimen Performing Organization Address City/State/ZIP Code Phon e Number [facility] [address] LAB (ABNORMAL) CBC W/PLT & DIFF,POINT OF CARE - [facility] [place] (05/25/2018 10:33 EDT) Pathologist Sig nature Gran # 4.2 1.4 - 6.5 [facility] X10E3/UL CENTER LAB GRAN % - [facility] [place] 66.8 42.2 - 75.2 % [facility] HEMATOCRIT - [facility] [place] 38.6 35.0 - 60.0 % [facility] HEMOGLOBIN - [facility] [place] [place] 12.4 11.0 - 18.0 [facility] G/DL [place] [facility] LYMPH # - [facility] [place] 1.7 1.2 - 3.4 [facility] X10E3/UL [place] [facility] LYMPH% - [facility] [place] 26.6 20.5 - 51.1 % [facility] MEAN CORPUSCULAR HGB 28.3 27.0 - 31.0 PG [facility] D [facility] LAB MEAN CORPUSCULAR HGB 32.0 (L) 33.0 - 37.0 [facility] CONC [facility] G/DL CENTER LAB MEAN CELL VOLUME - 88.5 80.0 - 99.9 [place] [facility] MONO # - [facility] [place] [place] 0.4 0.1 - 0.6 [facility] X10E3/UL [place] [facility] MONO% - MC 6.6 1.7 - 9.3 % [facility] MEAN PLATELET VOLUME 8.0 7.8 - 11.0 [place] [facility] LAB PLATELET COUNT 282 150 - 450 [facility] X10E3/UL [place] [facility] RED BLOOD COUNT - 4.36 4.00 - 6.00 [facility] X10E6/UL [place] [facility] RED CELL DISTRI WIDTH 12.4 11.6 - 13.7 % [facility] D [facility] LAB WHITE BLOOD COUNT - 6.3 4.5 - 10.5 [facility] X10E3/UL [place] [facility] Specimen Performing Organization Address City/State/ZIP Code Phon e Number [facility] [address] [place] [address] [facility] documented in this encounter Visit Diagnoses Not on filedocumented in this encounter Care Teams Right Of Way Supervisor Relationship Specialty Start Date End Date Soraya Lovett MD PCP - General 12/12/13 05/06/21 [address] [place] [address] documented as of this encounter
--- OUTSIDE RECORDS SUMMARY | 2021-10-09 00:09 | XMS_ITS | Encounter Summary ---
:1975 Author Organization [facility] Address [address] [place] [address] Care Team Providers Name Role Phone Soraya Lovett MD Primary Care Provider Encounter Details Date Type Department Care Team Description 10/11/2016 Historical Results [facility] - Tre Baig [facility] Radiology MD Shell Results [address] [place] [address] [address] [place] [address] (Wo rk) Social History Tobacco Use Types Packs/Day Years Used Date Never Smoker Alcohol Use Standard Drinks/Week Comments Yes 0 (1 standard drink = 0.6 oz pure alcoho l) Sex Assigned at Date Recorded Not on file documented as of this encounter Plan of Treatment Upcoming Encounters Date Type Specialty Care Team Description 01/08/2022 Office Visit Orthopedic Surgery Derrell Baig MD [address] [facility] [address] [place] [address] (Wo rk) documented as of this encounter Procedures Procedure Name Priority Date/Time Associated Diagnosis Comme nts MR KNEE WO CONTRAST 10/11/2016 9:26 EDT R esults for this RIGHT procedure are i n the results section. documented in this encounter Results MR KNEE WO CONTRAST RIGHT (10/11/2016 9:26 EDT) Specimen Narrative [facility] RADI[facility] - 10/11/2016 9:26 EDT ? EXAM: MAGNETIC RESONANCE IMAGING/KNEE RT ??EX. D/ (0716) ? CLINICAL INFORMATION: ? M17.9 DJD RIGHT KNEE ? INDICATION: M17.9 DJD Right knee ? COMPARISON: None. ? TECHNIQUE: Unenhanced proton dens ity and fat-suppressed proton ? density coronal and sagittal as w ell as fat-suppressed T2-weighted ? axial scans of the right knee wer e obtained. ? FINDINGS: There is an old healed osteotomy of the proximal tibial ? metaphysis, which is fixed by a m edial cortical plate and multiple ? screws, resulting in mild regiona l artifact. Tricompartmental ? osteoarthritis with grade 4 chond ral changes throughout is present. ? These findings are most severe in the lateral tibiofemoral joint. ? There is degeneration/degenerativ e tear of the lateral meniscus ? midportion, anterior lateral corn er and anterior horn. There is a ? horizontal tear and mucoid degene ration of the medial meniscus ? midportion and there is an incomp lete radial tear of the medial ? meniscus posterior horn at its ce ntral attachment site. ? MCL edema is likely stress relate d (versus MCL sprain). There is a ? chronic partial tear of the poste rior cruciate ligament. There is ? mucoid degeneration of the anteri or cruciate ligament. The lateral ? collateral ligament, iliotibial b and, biceps femoris tendon and ? popliteus tendon are intact. The extensor mechanism and patellar ? retinacula are intact. ? A large knee joint effusion and m ild synovitis is present. ? IMPRESSION: ? 1. Severe osteoarthritis. ? 2. Degeneration and tears of the lateral meniscus and medial ? meniscus. ? 3. MCL edema, likely stress relat ed. ? 4. Chronic partial tear of the po sterior cruciate ligament. ? 5. Mucoid degeneration of the ant erior cruciate ligament. ? REPORT SIGNED IN OTHER VENDOR SYSTEM 10/11/2016 ?Reported B y: Reynaldo Bautista MD ? CC: ? Transcribed Date/Time: 10/11/2016 (0926) ? Bacon Slicer: .[email or web address] ? Printed Date/Time: 08/28/2018 (03 12) ? PAGE 1 ? Shantelle d Report ? Procedure Note Reynaldo Bautista MD - 01/17/2019 EXAM: MAGNETIC RESONANCE IMAGING/KNEE R T EX. D/ (0716) CLINICAL INFORMATION: M17.9 DJD RIGHT KNEE INDICATION: M17.9 DJD Right knee COMPARISON: None. TECHNIQUE: Unenhanced proton density an d fat-suppressed proton density coronal and sagittal as well as fat-suppressed T2-weighted axial scans of the right knee were obta ined. FINDINGS: There is an old healed osteot ana of the proximal tibial metaphysis, which is fixed by a medial cortical plate and multiple screws, resulting in mild regional paresh fact. Tricompartmental osteoarthritis with grade 4 chondral ch anges throughout is present. These findings are most severe in the l ateral tibiofemoral joint. There is degeneration/degenerative tear of the lateral meniscus midportion, anterior lateral corner and anterior horn. There is a horizontal tear and mucoid degeneration of the medial meniscus midportion and there is an incomplete r adial tear of the medial meniscus posterior horn at its central attachment site. MCL edema is likely stress related (lokesh hua MCL sprain). There is a chronic partial tear of the posterior c ruciate ligament. There is mucoid degeneration of the anterior cru ciate ligament. The lateral collateral ligament, iliotibial band, b iceps femoris tendon and popliteus tendon are intact. The extens or mechanism and patellar retinacula are intact. A large knee joint effusion and mild sy novitis is present. IMPRESSION: 1. Severe osteoarthritis. 2. Degeneration and tears of the latera l meniscus and medial meniscus. 3. MCL edema, likely stress related. 4. Chronic partial tear of the posterio r cruciate ligament. 5. Mucoid degeneration of the anterior cruciate ligament. REPORT SIGNED IN OTHER VENDOR SYSTEM 10/11/2016 Reported By: Reynaldo Bautista MD CC: Transcribed Date/Time: 10/11/2016 (0926 ) Bacon Slicer: Printed Date/Time: 08/28/2018 (4011) PAGE 1 Signed Report Performing Organization Address City/State/ZIP Code Phon e Number [facility] RADI[facility] documented in this encounter Visit Diagnoses Not on filedocumented in this encounter Care Teams Hand Tacker Relationship Specialty Start Date End Date Soraya Lovett MD PCP - General 12/12/13 05/06/21 [address] [place] [address] documented as of this encounter
--- OUTSIDE RECORDS SUMMARY | 2021-10-09 00:09 | XMS_ITS | Encounter Summary ---
:1975 Author Organization [facility] Address [address] [place] [address] Care Team Providers Name Role Phone Soraya Lovett MD Primary Care Provider Encounter Details Date Type Department Care Team Description 02/05/2015 Historical Results [facility] - Myra Alexander, Only [facility] Radiology Resul ts INJECTION MOLDING OPERATOR [address] [place] [address] [facility] [place], [address] [place] [address] Social History Tobacco Use Types Packs/Day Years Used Date Never Smoker Alcohol Use Standard Drinks/Week Comments Yes 0 (1 standard drink = 0.6 oz pure alcoho l) Sex Assigned at Date Recorded Not on file documented as of this encounter Plan of Treatment Upcoming Encounters Date Type Specialty Care Team Description 01/08/2022 Office Visit Orthopedic Surgery Derrell Baig MD [address] [facility] [address] [place] [address] (Wo rk) documented as of this encounter Procedures Procedure Name Priority Date/Time Associated Comments Diagnosis US PELVIS 02/05/2015 13:57 Results for this TRANSVAGINAL EST procedure are i n the results section. MA BREAST SCREENING 02/05/2015 12:08 Resu lts for this RAJ BILATERAL EST procedure are in the results section. documented in this encounter Results US PELVIS TRANSVAGINAL (02/05/2015 13:57 EST) Specimen Narrative [facility] - 02/05/2015 14:05 EST ? EXAM: ULTRASOUND/TRANSVAGINAL - OVERLOCK ELASTIC ATTACHER ? EX. D/ (8341) ? CLINICAL INFORMATION: ? N85.2, ENLARGED UTERUS ? TRANSVAGINAL - OVERLOCK ELASTIC ATTACHER ? Signs and Symptoms/Comments: Enla rged uterus ? Comparison: None. ? Technique: Transvaginal grayscale ultrasound images of the female ? pelvis were obtained. Color flow Doppler imaging was obtained. ? Spectral tracings were also obtai akil. ? Findings: ? The uterus is anteverted and retr oflexed. It measures 11.1 x 5.9 x ? 5.7 cm. Its myometrium is heterog enous in echotexture. It contains a ? large intramural fibroid measurin g 4.5 x 4.2 x 5.1 cm within the left ? lateral aspect of the lower uteri ne segment. ? The uterine endometrium is normal appearing for a secretory phase ? endometrium. ??It measures 11 mm in double thickness. ? The right ovary measures 3.9 x 2. 7 x 2.9 cm. The calculated volume is ? 15 mL. It demonstrates normal col or Doppler flow and normal arterial ? and venous flow on spectral yessy ng. ? The left ovary measures 4.0 x 2.2 x 2.9 cm. The calculated volume is ? 13 mL. ?? It demonstrates normal color Doppler flow and normal ? arterial and venous flow on spect ral tracing. There is a 2.2 cm ? maximum diameter simple cyst. In this premenopausal woman, this is ? benign and requires no specific i maging followup. ? The cervix is unremarkable save f or nabothian cysts. ? No free fluid is seen in the cul- de-sac. ? Impression: ? 1. ??Bulky fibroid uterus. ? 2. ??Ovaries upper limits normal in volume. ? REPORT SIGNED IN OTHER VENDOR SYSTEM 02/05/2015 ?Reported B y: Henry Pham MD ? CC: ? Transcribed Date/Time: 02/05/2015 (1405) ? Craft Artist: ? Printed Date/Time: 08/23/2018 (11 04) ? PAGE 1 ? Shantelle d Report ? Procedure Note Henry Pham MD - 01/17/2019 EXAM: ULTRASOUND/TRANSVAGINAL - OVERLOCK ELASTIC ATTACHER EX. D/ (1301) CLINICAL INFORMATION: N85.2, ENLARGED UTERUS TRANSVAGINAL - OVERLOCK ELASTIC ATTACHER Signs and Symptoms/Comments: Enlarged u terus Comparison: None. Technique: Transvaginal grayscale ultra sound images of the female pelvis were obtained. Color flow Dopple r imaging was obtained. Spectral tracings were also obtained. Findings: The uterus is anteverted and retroflexe d. It measures 11.1 x 5.9 x 5.7 cm. Its myometrium is heterogenous in echotexture. It contains a large intramural fibroid measuring 4.5 x 4.2 x 5.1 cm within the left lateral aspect of the lower uterine seg ment. The uterine endometrium is normal appea ring for a secretory phase endometrium. It measures 11 mm in doubl e thickness. The right ovary measures 3.9 x 2.7 x 2. 9 cm. The calculated volume is 15 mL. It demonstrates normal color Dop pler flow and normal arterial and venous flow on spectral tracing. The left ovary measures 4.0 x 2.2 x 2.9 cm. The calculated volume is 13 mL. It demonstrates normal color Dop pler flow and normal arterial and venous flow on spectral tr acing. There is a 2.2 cm maximum diameter simple cyst. In this p remenopausal woman, this is benign and requires no specific imaging followup. The cervix is unremarkable save for nab othian cysts. No free fluid is seen in the cul-de-sac . Impression: 1. Bulky fibroid uterus. 2. Ovaries upper limits normal in volum e. REPORT SIGNED IN OTHER VENDOR SYSTEM 02/05/2015 Reported By: Henry Pham MD CC: Transcribed Date/Time: 02/05/2015 (0651 ) Craft Artist: Printed Date/Time: 08/23/2018 (5357) PAGE 1 Signed Report Performing Organization Address City/State/ZIP Code Phon e Number [facility] MA BREAST SCREENING RAJ BILATERAL (02/05/2015 12:08 EST) Specimen Narrative [facility] - 02/07/2015 10:04 EST ? EXAM: MAMMOGRAM/MAMMO BILATERAL SCREEN W ??EX. D/ (1208) ? CLINICAL INFORMATION: ? Z12.39, ENCOUNTER FOR OTHER SCREE SUKH FOR ? MALIGNANT NEOPLASM OF BREAST ? TECHNIQUE: ??Full field digital w hole breast 2D (C-view) and 3D CC and ? MLO views of both breasts were ob tained. CAD technology was utilized. ? INDICATION: ??Screening ? FINDINGS: ??The fibroglandular pa tterns of the breasts are normal. ? There has been no change when com pared to previous mammograms and ? there is no mammographic evidence of cancer. The breasts are of ? scattered density. ? FINAL ASSESSMENT: ??BILATERAL ALTON AST - Category 1 - Negative. Routine ?mamm ographic follow-up is recommended. ? These results will be communicate d to your patient via a lay letter ? from Radiology. ??If any addition al imaging is needed we will contact ? your patient directly. ? JSP:[email or web address] ?Reported B y: Jethro Vo MD ? CC: ? Transcribed Date/Time: 02/07/2015 (1004) ? Craft Artist: CARSON ? Printed Date/Time: 08/23/2018 (11 04) ? PAGE 1 ? Shantelle d Report ? Procedure Note Jethro Vo MD - 01/17/2019 EXAM: MAMMOGRAM/MAMMO BILATERAL SCREEN W EX. D/ (1208) CLINICAL INFORMATION: Z12.39, ENCOUNTER FOR OTHER SCREENING F OR MALIGNANT NEOPLASM OF BREAST TECHNIQUE: Full field digital whole alton ast 2D (C-view) and 3D CC and MLO views of both breasts were obtained . CAD technology was utilized. INDICATION: Screening FINDINGS: The fibroglandular patterns o f the breasts are normal. There has been no change when compared to previous mammograms and there is no mammographic evidence of ca ncer. The breasts are of scattered density. FINAL ASSESSMENT: BILATERAL BREAST - Ca tegory 1 - Negative. Routine mammographic follow-up is recommended. These results will be communicated to y our patient via a lay letter from Radiology. If any additional imagi ng is needed we will contact your patient directly. JSP:[email or web address] Reported By: Jethro Vo MD CC: Transcribed Date/Time: 02/07/2015 (1004 ) Craft Artist: CARSON Printed Date/Time: 08/23/2018 (0107) PAGE 1 Signed Report Performing Organization Address City/State/ZIP Code Phon e Number [facility] documented in this encounter Visit Diagnoses Not on filedocumented in this encounter Care Teams Electronic Imaging System Operator Relationship Specialty Start Date End Date Soraya Lovett MD PCP - General 12/12/13 05/06/[address] [place] [address] documented as of this encounter
--- OUTSIDE RECORDS SUMMARY | 2021-10-09 00:09 | XMS_ITS | Encounter Summary ---
:1975 Author Organization [facility] Address [address] [place] [address] Care Team Providers Name Role Phone Soraya Lovett MD Primary Care Provider Encounter Details Date Type Department Care Team Description 11/22/2017 Historical Results [facility] - Lynda Herrera, Only [facility] [place] [facility] [address] [place] [address] [place], [place] [phone] Social History Tobacco Use Types Packs/Day Years [...] MD [address] [facility] [address] [place] [address] (Wo rk) documented as of this encounter Procedures Procedure Name Priority Date/Time Associated Comments Diagnosis COMPREHENSIVE Routine 11/22/2017 11:49 Results fo r this METABOLIC POC - [facility] [place] procedu re are in the results section. documented in this encounter Results (ABNORMAL) COMPREHENSIVE METABOLIC POC - [facility] [place] (11/22/2017 11:49 EDT) Pathologist Sig nature ALBUMIN - CV 3.9 3.50 - 5.00 [facility] G/DL CENTER LAB ALKALINE PHOSPHATASE - 47 38.00 - 126.00 [facility] U/L CENTER LAB BILIRUBIN TOTAL 0.4 0.20 - 1.30 [facility] MG/DL MOBILE LAB BUN - [facility] [place] 13 7.00 - 20.00 [facility] MG/DL MOBILE LAB CALCIUM - [facility] [place] 9.3 8.50 - 10.50 [facility] MG/DL MOBILE LAB Chloride 105 98.00 - 107.00 [facility] MMOL/L MOBILE LAB CO2 Total 26 22.00 - 30.00 [facility] MMOL/L MOBILE LAB CREATININE 0.5 (L) 0.70 - 1.50 [facility] MG/DL MOBILE LAB Anion Gap 9 7 - 17 MMOL/L [facility] GLUCOSE - [facility] [place] 88 70.00 - 100.00 [facility] MG/DL MOBILE LAB Potassium 4.3 3.50 - 5.10 [facility] MMOL/L MOBILE LAB Sodium 140 137.00 - 145.00 [facility] MMOL/L MOBILE LAB TOTAL PROTEIN - [facility] [place] 6.8 6.30 - 8.20 [facility] G/DL MOBILE LAB SGOT/AST - [facility] [place] 18 15.00 - 46.00 [facility] U/L MOBILE LAB SGPT/ALT - [facility] [place] 28 13.00 - 69.00 [facility] U/L MOBILE LAB Specimen Performing Organization Address City/State/ZIP Code Phon e Number [facility] [address] [place] [address] [facility] documented in this encounter Visit Diagnoses Not on filedocumented in this encounter Care Teams Polisher Hand Relationship Specialty Start Date End Date Soraya Lovett MD PCP - General 12/12/13 05/06/21 [address] [place] [address] documented as of this encounter
--- OUTSIDE RECORDS SUMMARY | 2021-10-09 00:09 | XMS_ITS | Encounter Summary ---
:1975 Author Organization [facility] Address [address] [place] [address] Care Team Providers Name Role Phone Soraya Lovett MD Primary Care Provider Encounter Details Date Type Department Care Team Description 06/17/2016 Historical Results [facility] - Ricardo, Anuj Goff, Only [facility] - [facility] [address] [place] [id number] [place] [address] [place] [address] Social History Tobacco Use Types Packs/Day Years Used Date Never Smoker Alcohol Use Standard Drinks/Week Comments Yes 0 (1 standard drink = 0.6 oz pure alcoho l) Sex Assigned at Date Recorded Not on file documented as of this encounter Plan of Treatment Upcoming Encounters Date Type Specialty Care Team Description 01/08/2022 Office Visit Orthopedic Surgery Derrell Baig MD [address] [facility] [address] [place] [phone] (Wo rk) documented as of this encounter Procedures Procedure Name Priority Date/Time Associated Comments Diagnosis GLYCOHEMOGLOBIN POC - Routine 06/17/2016 14:42 Re sults for this [facility] EDT procedure are i n the results section. documented in this encounter Results GLYCOHEMOGLOBIN POC - [facility] (06/17/2016 14:42 EDT) Pathologist Sig nature Hemoglobin A1c 5.0 4.0 - 6.0 % [facility] AVG CALCULATED GLUCOSE 87 60 - 115 MG/DL [facility] Specimen Performing Organization Address City/State/ZIP Code Phon e Number [facility] [address] [place] [address] [facility] documented in this encounter Visit Diagnoses Not on filedocumented in this encounter Care Teams Pattern Setter Relationship Specialty Start Date End Date Soraya Lovett MD PCP - General 12/12/13 05/06/21 [address] [place] [address] documented as of this encounter
--- OUTSIDE RECORDS SUMMARY | 2021-10-09 00:09 | XMS_ITS | Encounter Summary ---
:1975 Author Organization [facility] Address [address] [place] [address] Care Team Providers Name Role Phone Soraya Lovett MD Primary Care Provider Encounter Details Date Type Department Care Team Description 06/17/2016 Historical Results [facility] - Ricardo, Anuj Goff, Only [facility] - [facility] [address] [place] [address] [place] [address] Social History Tobacco Use Types Packs/Day Years Used Date Never Smoker Alcohol Use Standard Drinks/Week Comments Yes 0 (1 standard drink = 0.6 oz pure alcoho l) Sex Assigned at Date Recorded Not on file documented as of this encounter Plan of Treatment Upcoming Encounters Date Type Specialty Care Team Description 01/08/2022 Office Visit Orthopedic Surgery Derrell Baig MD [address] [facility] [address] [place], [place] [id number] (Wo rk) documented as of this encounter Procedures Procedure Name Priority Date/Time Associated Comments Diagnosis COMPREHENSIVE Routine 06/17/2016 14:42 Results fo r this METABOLIC POC - [facility] EDT procedu re are in the results section. documented in this encounter Results (ABNORMAL) COMPREHENSIVE METABOLIC POC - [facility] (06/17/2016 14:42 EDT) Pathologist [facility] [place] [facility] nature ALBUMIN - [facility] 4.0 3.50 - 5.00 [facility] G/DL CENTER LAB ALKALINE PHOSPHATASE - 54 38.00 - 126.00 [facility] U/L CENTER LAB BILIRUBIN TOTAL 0.6 0.20 - 1.30 [facility] MG/DL TRAFALGAR LAB BUN - [facility] 15 7.00 - 20.00 [facility] MG/DL TRAFALGAR LAB CALCIUM - [facility] 9.3 8.50 - 10.50 [facility] MG/DL TRAFALGAR LAB Chloride 104 98.00 - 107.00 [facility] MMOL/L [facility] LAB CO2 Total 28 22.00 - 30.00 [facility] MMOL/L [facility] LAB CREATININE 0.6 (L) 0.70 - 1.50 [facility] MG/DL TRAFALGAR LAB Anion Gap 10 7 - 17 [facility] GLUCOSE - [facility] 85 70.00 - 100.00 [facility] MG/DL [facility]AR LAB Potassium 4.2 3.50 - 5.10 [facility] MMOL/L [facility] LAB Sodium 142 137.00 - 145.00 [facility] MMOL/L [facility] LAB TOTAL PROTEIN - [facility] 6.7 6.30 - 8.20 [facility] G/DL TRAFALGAR LAB SGOT/AST - [facility] 19 15.00 - 46.00 [facility] U/L TRAFALGAR LAB SGPT/ALT - [facility] 27 13.00 - 69.00 [facility] U/L [facility]AL[facility]AR LAB Specimen Performing Organization Address City/State/ZIP Code Phon e Number [facility] [address] [place] [address] [facility] documented in this encounter Visit Diagnoses Not on filedocumented in this encounter Care Teams Dust Collector Attendant Relationship Specialty Start Date End Date Soraya Lovett MD PCP - General 12/12/13 05/06/21 [address] [place] [address] documented as of this encounter
--- OUTSIDE RECORDS SUMMARY | 2021-10-09 00:09 | XMS_ITS | Encounter Summary ---
:1975 Author Organization [facility] Address [address] [place] [address] Care Team Providers Name Role Phone Soraya Lovett MD Primary Care Provider Encounter Details Date Type Department Care Team Description 06/17/2016 Historical Results [facility] - Ricardo, Anuj Goff, Only [facility] - [facility] [address] [address] [place] [address] Social History Tobacco Use Types Packs/Day Years Used Date Never Smoker Alcohol Use Standard Drinks/Week Comments Yes 0 (1 standard drink = 0.6 oz pure alcoho l) Sex Assigned at Date Recorded Not on file documented as of this encounter Plan of Treatment Upcoming Encounters Date Type Specialty Care Team Description 01/08/2022 Office Visit Orthopedic Surgery Derrell Baig MD [address] [facility] [address] [place] [phone] (Wo rk) documented as of this encounter Procedures Procedure Name Priority Date/Time Associated Comments Diagnosis POCT CHOLESTEROL LDL Routine 06/17/2016 14:42 Res ults for this ([facility] EDT procedure are i n the results section. documented in this encounter Results (ABNORMAL) POCT CHOLESTEROL LDL ([facility] (06/17/2016 14:42 EDT) Pathologist Sig nature LDL CHOLESTEROL - [facility] 117 (H) 60 - 100 mg/dl [facility] Specimen Performing Organization Address City/State/ZIP Code Phon e Number [facility] [address] [place] [address] [facility] documented in this encounter Visit Diagnoses Not on filedocumented in this encounter Care Teams Blind Hooker Relationship Specialty Start Date End Date Soraya Lovett MD PCP - General 12/12/13 05/06/[address] [place] [id number] documented as of this encounter
--- OUTSIDE RECORDS SUMMARY | 2021-10-09 00:09 | XMS_ITS | Encounter Summary ---
:1975 Author Organization [facility] Address [address] [place] [address] Care Team Providers Name Role Phone Soraya Lovett MD Primary Care Provider Encounter Details Date Type Department Care Team Description 03/01/2018 Historical Results Only [facility] - Soraya Rojo se, MD [facility] Radiology Resul ts [address] [facility] [address] [place], [place] [phone] Social History Tobacco Use Types Packs/Day Years Used Date Never Smoker Alcohol Use Standard Drinks/Week Comments Yes 0 (1 standard drink = 0.6 oz pure alcoho l) Sex Assigned at Date Recorded Not on file documented as of this encounter Plan of Treatment Upcoming Encounters Date Type Specialty Care Team Description 01/08/2022 Office Visit Orthopedic Surgery Derrell Baig MD [address] [facility] [address] [place] [address] (Wo rk) documented as of this encounter Visit Diagnoses Not on filedocumented in this encounter Care Teams Parts Chaser Relationship Specialty Start Date End Date Soraya Lovett MD PCP - General 12/12/13 05/06/21 [address] [place] [address] documented as of this encounter
--- OUTSIDE RECORDS SUMMARY | 2021-10-09 00:09 | XMS_ITS | Encounter Summary ---
:1975 Author Organization [facility] [address] Care Team Providers Name Role Phone Soraya Lovett MD Primary Care Provider Reason for Visit Reason Comments Follow-up Bariatric Surgery Program [facility] up Encounter Details Date Type Department Care Team Description 07/14/2016 Office Visit General Surgery at Richard Cannon APRN [facility] [place] [address] Vitamin D deficiency; [facility] Amanda Cooper RD Disorder of iron metabolism; [facility] Status [place] [address] Social History Tobacco Use Types Packs/Day Years Used Date Never Smoker Smokeless Tobacco: Never Used Alcohol Use Standard Drinks/Week Comments No 0 (1 standard drink = 0.6 oz pure alcoho l) Sex Assigned at Date Recorded Not on file documented as of this encounter Last Filed Vital Signs Vital Sign Reading Time Taken Comments Blood Pressure 131/68 07/14/2016 3:01 PM EDT Pulse 75 07/14/2016 3:01 PM EDT Temperature - - Respiratory Rate - - Oxygen Saturation 100% 07/14/2016 3:01 PM EDT Inhaled Oxygen Concentration - - Weight 102.5 kg (226 lb) 07/14/2016 3:01 PM EDT Height - - Body Mass Index 36.5 02/25/2016 4:03 PM EST documented in this encounter Patient Instructions Patient InstructionsAlyse Cannon - 07/14/2016 3:00 PM EDT BSP Admin coordinator Marisa: [phone] Dietitian: [phone] Surgeons/ nurse practitioner: [phone] Nurse line: [phone] Testing: Labwork: Today. Go to [facility], which is 1 flight below the General Surgery Clinic. Please note th will always receive a letter with lab results and recommendations. Please read this letter carefully and follow recommendations. The letter also contains information regarding your next lab draw. Next visit: January, sooner if weight loss is slow Routine visits are done at 4.8,12, 18 and 24 months after surgery, and yearly thereafter. Please call [phone] if you do not receive an appointment by 3-4 weeks prior to the expected visit. Medications: recommendations pending labwork. Vitamins: The following vitamins are recommended: ??? [...] day) (or 1 chewable twice a day) Take calcium and iron at least 2 hours apart from each other. ??? Iron with Vitamin C, 50-66 mg once daily (take iron with vitamin C 250 mg to help with absorption) only if you have regular periods, iron deficiency or anemia. Nutrition recommendations: Continue to consume small, high protein snacks in between meals and avoidchips, crackers, and other high carb snacks. Start tracking meals and snacks one day per week or so on the USDA food tracker to make sure staying in protein and calorie goals. - Your Daily Goals: ?? 1,000-1,200 calories per day (300 calories per meal, 100 calories per snack, 1-2 snacks per day) ?? 60 grams of protein per day (20 grams per meal) ?? 48-64 oz of non-caloric and hydrating fluids per day (6-8, 8 oz cups) ?? Do not drink with meals- pushes food through more quickly, can cause upset stomach Activity: ??? Aim for 30 minutes of exercise daily, 5 days a week of both cardio and strength training exercises. Continue staying active with gardening, taking care of animals, and hiking. Alcohol: should be used sparingly, no more than one drink per occasion. Alcohol is a source of emptycalories and can cause ulcers and vitamin and mineral deficiencies. Alcohol is toxic to the liver and is absorbed more quickly after surgery, it stays in the system longer. Studies have noted that there is an increased risk of alcohol dependence after bariatric surgery. f non-prescribed drugs and treet drugs is [...] of every month from 1-2 PM at [facility]- no registration required Nutrition and Activity apps- Baritastic, My Fitness Pal, Lose It, My Plate Internet resources: [email or web address] [facility] facebook page: [email or web address] Books & Magazines: - Recipes for Life After Weight Loss Surgery by Torie Naik - Shrink Yourself by Dr Star Judd - Eating Well - Cooking Light documented in this encounter Progress Notes Amanda Cooper - 07/14/2016 3:00 PM EDT Bariatric Surgery Program Nutrition Progress Note Encounter Type: follow up SUBJECTIVE: Topics Discussed/Patient Concerns: ?? Hair loss started a couple of months ago. She has had some fatigue but her energy has improved a little bit in the past 2-3 weeks. When the weather started to get warmer she was shocked at how tiredshe was, she had no energy after work. She made some adjustments to what she was eating and started focusing more on what she was eating. She looked at her carb intake and tried to decrease carbs. She noticed she would eat carbs when hungry in between meals so she replaced them with small protein snacks, like HB egg or 1 oz cheese with Triscuits or cottage cheese, which has been helping and her energy has increased. Her job is physically demanding and she was afraid she not taking in enough to have as much energy as she did before. ?? She feels she wasn't planning very well once she started eating solid food. She started eating a little bit of everything and then felt terrible. She tried egg rolls and start eating chips, which didn't make her feel full and she knew they were empty calories. Sometimes she would have white crackers (non whole grain) that were on sale and after eating them would get low blood sugar and feel light headed, hot, and weak and needed to eat something. She was missing bread. When she was consuming morecarbs as snacks, she would feel very hungry before meals and would then eat too quickly and feel overfull before finishing her meal. She has now been working on slowing down while eating for the past mo nth and does not feel as hungry before a meal now that she has high protein snacks. OBJECTIVE: Date of Bariatric Surgery: 02/03/16 Type of Bariatric Surgery: Laparoscopic Sleeve Gastrectomy Weight History: Date Weight (lbs) HT BMI Comments 265# Highest Weight (patient reported) 08/12/15 262# 66 42.3 Initial program weight 12/23/15 259# 66 41.8 1st pre-op visit 02/03/16 260# EWL % 42 Surgery 02/25/16 232# 21.6% 37.6 1 month post-op 07/14/16 226# 26.4% 36.5 6 months post-op [place] Body Weight (based on BMI of 25): 154.9# Excess Weight: 104.1# Goal weight: 190# Predicted weight loss with surgery is an estimated 50-70% of excess body weight, which would be a goal weight between 180-207#. 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 She shares an office with a dietitian. 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 She has chickens, ducks, hens, geese, sheep, and rabits. Vitamin/Mineral Supplements (reported by patient): Supplement Type Brand/Form Dosage/Amount Frequency Comments Multivitamin [place] w/ iron 1 Twice daily Calcium Citracal 2 pills Twice daily Occ. misses 2nd dose Vitamin B12 pill 500 mcg daily Iron Ferrous sulfate 325 mg daily With 500 mg vitamin C, takes with calcium Vitamin D3 pill 50,000 IU weekly Folic Acid daily Tracking Intake: None, eats the same things or similiar substitutions. Although when she adds a new food, she looks it up on the [employer] food tracker. Daily Oral Intake: Breakfast 3/4 cup [place] Leonean yogurt (plain) and 1/4 cup unsweetened homemade applesauce On weekends: egg with 1 piece of whole grain toast and piece of sausage AM Snack HB egg or sometimes cheese Lunch 1 cup greans and vegetables with 3 oz chicken or smoked salmon and buttermilk dressing PM Snack Egg salad made w/ little bit moran and lf sour cream with 6 Triscuit crackers Or 1 oz aged cheddar with crackers Dinner Sometimes salad similar to lunch Or 3 oz chicken or turkey and 1/2 cup vegetables and 1/4 cup rice or mashed potatoes She roasts a whole turkey or chicken for the week HS Snack none Protein/ grams per day: >60 grams Calories per day: 4050-2337 kcals Hydrating fluids- oz/ day: 60 oz water Soda: none ETOH: Half of a light beer a day or 1 whole beer every other day Caffeine: 10 oz coffee with 4 oz milk after she drinks her first bottle water of the day Sweets: She was eating sweets because she realized she could, but now she avoids them. If they around she might have 1 cookie. Meals per day: 3/ day ?? Feels full/satisfied after eating: yes, sometimes too full from overeating ?? Feels hungry []never [x]sometimes- not so much now, but does feel hungry for meals []most of the time [] always ?? Drinks with meals: none ?? Practices portion control: Measuring some things, uses manny jars for lunches and snacks, and uses a small plate for dinner. ?? Spends at least 20 minutes eating each meal: Takes 10-15 minutes for breakfast and 20-30 minutes other meals. She eats while she is driving instead of sitting at home, it helps her slow down. She has a 1 hour commute to stretch out her breakfast and afternoon snack. ?? Has had dumping syndrome: none Foods/Symptoms: ?? In the past month, pt has vomited/regurgitated: Not in the past month, but she has vomited a few times from eating too quickly. Food Allergies/Intolerances: Egg rolls, fresh bread, turkish fries, a lot of pasta, and hashbrowns Exercise: Spends 1 hour gardening and feeding her animals, she does a lot of shoveling. On Saturdaysshe is outside all day and on Sundays she takes a long hike. Her goal is to take a long hike every Tuesday. Her knees are doing a little bit better. ASSESSMENT: Summary of Weight Loss: Patient's percent excess weight loss is 26.4% which is slightly below the expected post-op bariatricsurgery range. Weight down 6# x 5 months. Patient realizes she was consuming more carbohydrates and started trying some higher calorie foods once she advanced to the stage 4 diet, which may have attributed to the slow weight loss. For the past month, patient has been focusing more on her diet and has increased her protein intake. She is now consuming high protein snacks instead of high carbohydrate snacks in between meals. Patient is not tracking her intake but she does use the [employer] food tracker occasionally. Recommend patient track her daily intake once a week or so to make sure she is staying in nutrition guidelines. She is meeting her protein and fluid goals. She is compliant with supplements, although advised her to take iron and calcium two hours apart from each other. She stays active with gardening, taking care of her animals, and hiking on the weekend. NUTRITION INTERVENTION & MONITORING: ?? Provided support/encouragement and reinforced importance of meeting nutritional goals. ?? Reviewed nutrition and vitamin and mineral supplement recommendations (see patient instructions). ?? Written recommendations provided. Patient agreed with these and verbalized adequate understanding. ?? Evaluation by nurse practitioner today. Alyse Cannon - 07/14/2016 1:00 PM EDT Reason for visit: follow up S/P laparoscopic sleeve gastrectomy on 02/03/16 Complications summary: Early none Late none Visits summary: Compliance with scheduled BSP follow-up: generally good Bariatric surgery graduates support group attendance: none [...] B12 1590 nl B1 folate prealbumin 32 Next visit: January/other Date Evaluation Results 06/22/16 Primary care Labwork done EGD (preop) 08/14/07 Colonoscopy Normal, including biopsies. No evidence of inflammatory bowel disease 12/22/13 Pap negative 11/09/13 Mammogram ACR category 1: negative - DEXA Problem List ??? Preoperative Class III obesity BMI 41.8, S/P LSG ??? Prediabetes: A1c was normal at 5.0 on 06/22/16, off metformin post surgery - Preoperative treatment with metformin ??? Musculoskeletal issues: some improvement after knee injections, current treatment with Celebrex - DJD knees, needs knee replacement- Dr Yadira DOHERTY in [place] ??? 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 Admitted for 1 week, unsure if had iv Anticoagulant used in [place], [place], was treated with warfarin,-believes only on for 3-4 months. Etiology was not known until ~1 year after incident, when was evaluated by vascular surgeon ??? Microalbuminuria by POC testing 02/11/2015 ??? IBS, diarrhea predominant treated with loperamide BID, better with less high fat foods, best when on very restricted diet high in salad and raw veggies: had some some early constipation early post op, then diarrhea now stable with 1 QD - Normal colonoscopy in 2007 ??? Iron deficiency (ferritin 15 on 12/23/15) preoperatively: current treatment with once daily iron ??? Menorrhagia intermittent, had IUD, which was removed in 2014: menses heavy first few days of cycle Past Surgical History Procedure Laterality Date ??? Laparoscopic sleeve gastrectomy (Dr. Padilla) 02/03/2016 ??? Foot surgery Left 2012 [place] procedure ??? Tibia osteotomy Right 2007, 2009 ??? [place] teeth extractions ??? Arthroscopies Bilateral ??? Microfracture procedure knees ??? Carpal tunnel release Bilateral 2009 ??? Partial first rib removal Left 2005 thoracic outlet syndrome Allergies Allergen Reactions ??? Pineapple Hives Raw pineapple causes mouth hives ??? Vicodin [Hydrocodone-Acetaminophen] Hives fevers Medications 07/14/16 1501 Medication Sig Taking? oxyCODONE-acetaminophen (PERCOCET) 5-325 mg Tablet take 1 [...] Tablet Take 500 mg by mouth. Yes omeprazole (PRILOSEC) 20 mg Capsule, Delayed Release(E.C.) Take 1 capsule by mouth daily for 180 days. Start at discharge to prevent ulcer. Take 30 minutes before breakfast Yes celecoxib (CELEBREX) 200 mg Capsule Take 200 mg by mouth 2 times daily. Yes multivitamin (THERAGRAN) Tablet Take 1 tablet by mouth 2 times daily. Yes PRENATA 29 mg iron- 1 mg Tablet, Chewable Reported on 07/14/2016 Changes to health/ social history or evaluations since last visit: She had a follow up with her PCP on 06/22, labwork was done which was remarkable. She was started on weekly vitamin D 50,000 units x 12weeks. Her 25 OH D level was 35 Subjective. Patient concerns at today's visit: she returns for her 4 month post surgery visit with a loss of 6 pounds in 4.5 months. She brings in a copy of her recent labwork which was reviewed. She was fatigued,which has improved with decreasing CHO and increased protein intake. She is tracking her intake on the El[employer]x intake tracker. She is meeting her protein and calorie needs,makes lots of homemade foods. She is active gardening and has hiked with students She discontinued ursodiol after a 3 month course due to expense She continues on omeprazole Review of Systems (negative if left blank): Constitutional: [+] Fatigue, improving [] pica Neurologic: [] paresthesias CV: [] treatment for hypertension or taking antihypertensive medication [ ] treatment for hyperlipidemia Pulmonary: [] sleep apnea symptoms [ ] treated for DIETER GI: [] GERD, dysphagia [] dumping [] abdominal pain, hernia [] nausea/vomiting [] blood in stool [] chronic diarrhea/ constipation CARE TRANSPORT NURSE: [+] LMP:07/11 ended, 1st 2 days heavy [+] control condoms [] menorrhagia [] menopause Skin: +redundant skin abdomen [+] intermittent rashes Heme/Lymph: [] excessive bruising [] blood donor in past year Psychiatric [] mental health concerns Health-related habits/other: Exercise/activity level: as per RD note Tobacco: none Alcohol: 1/2 beer daily 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 Objective: General: 40 y.o. year-old female looks well, appears upbeat Heart: RRR Lungs:CTA bilaterally without wheezing Abdomen: soft, non-tender. Trocar sites well-healed, without evidence of hernia. Extremities: no edema Vital signs: BP 131/68 Pulse 75 Wt (!) 102.5 kg (226 lb) SpO2 100% BMI 36.5 kg/m2 Today's lab data: Results for SENG MUSE ( ) Ref. Range 07/14/2016 16:08 WBC Latest Ref Range: 4.0 - 9.5 x10(3)/mcL 7.9 RBC Latest Ref Range: 4.00 - 5.21 x10(6)/mcL 4.14 Hemoglobin Latest Ref Range: 11.7 - 15.5 gm/dL 12.4 Hematocrit Latest Ref Range: 35.7 - 45.8 % 35.8 MCV Latest Ref Range: 82.6 - 94.4 fL 86.5 MCH Latest Ref Range: 27.1 - 32.0 pg 30.0 MCHC Latest Ref Range: 31.7 - 35.0 gm/dL 34.6 RDWSD Latest Ref Range: 37.0 - 46.0 fL 39.6 RDWCV Latest Ref Range: 11.5 - 14.1 % 12.5 Platelets Latest Ref Range: 145 - 357 x10(3)/mcL 291 MPV Latest Ref Range: 7.6 - 12.9 fL 9.8 nRBC % Auto Latest Units: % 0.0 nRBC Abs Auto Latest Ref Range: 0.000 - 0.000 x10(3)/mcL 0.000 Ferritin Latest Ref Range: 15 - 150 ng/mL 40 Folate Lvl Latest Ref Range: 4.8 - 24.2 ng/mL >20.0 Iron Latest Ref Range: 30 - 150 mcg/dL 48 TIBC Latest Ref Range: 250 - 450 mcg/dL 295 Iron Saturation Latest Ref Range: 20 - 50 % 16 (L) Vitamin B-12 Latest Ref Range: 207 - 974 pg/mL 1590 (H) Vit B1 Lvl WB Latest Ref Range: 70 - 180 nmol/L 185 (H) Prealbumin Latest Ref Range: 20 - 40 mg/dL 32 Assessment: Stable 5.5 months S/P LSG, with loss of 26% of excess body weight. Plan: ?? Recent labwork done via primary care office reviewed ?? Recommend decreasing calorie intake to 8271-3258 calorie range ?? Next BSP follow up: January ?? Next labwork: January ?? Additional vitamin and mineral supplement recommendations (*in addition to routine bariatric supplements, as noted below):continue current medications including iron daily, can decrease vitamin B12 500 mcg to 3 days a week ?? Advised to call with unexplained abdominal pain, prolonged nausea, vomiting or inability to hydrate, questions or concerns ?? dietary/ exercise recommendations per RD She was provided with a Bariatric Program Summary report which included the above recommendations, as well as information on vitamin and mineral supplementation, fluids, exercise and support group meetings. She has had an opportunity to have all her questions answered and is in agreement with the plan of care. Seng was advised of lab results via mail. RECOMMENDED BARIATRIC SURGERY PROGRAM POSTOPERATIVE FOLLOW-UP: Follow up: done at 4, 8,12 and 18 and 24 months, and yearly thereafter. High risk patients are evaluated on a more frequent basis. *Supplement recommendations: Complete multivitamin with minerals twice a day, B12 500 [...] PTH and comprehensive metabolic profile at 4, 12, 18 and 24 months, and yearly. Prealbumin is done at 4 and 12 months and PRN. If labwork is done by the primary home care aide: please send a copy to the Bariatric Surgery Program, General Surgery Clinic, [facility] Questions regarding [facility] Bariatric Surgery Program patients: please call Regina Cannon INTEGRATION DEVELOPER at [phone] or [phone] beeper [phone]. E-mail: [email or web address] documented in this encounter Plan of Treatment Not on filedocumented as of this encounter Procedures Procedure Name Priority Date/Time Associated Comments Diagnosis HEMOGRAM Routine 07/14/2016 4:08 PM Disorder of iron Resul ts for this EDT metabolism procedure are in Status post the results bariatric surgery section. VITAMIN B1, WHOLE Routine 07/14/2016 4:08 PM Status post Resu lts for this BLOOD EDT bariatric surgery procedure are in the results section. IRON AND TIBC Routine 07/14/2016 4:08 PM Disorder of iron Resu lts for this EDT metabolism procedure are in Status post the results bariatric surgery section. PREALBUMIN Routine 07/14/2016 4:08 PM Status post Results f or this EDT bariatric surgery procedure are in the results section. FOLATE, SERUM Routine 07/14/2016 4:08 PM Status post Results for this EDT bariatric surgery procedure are in the results section. FERRITIN Routine 07/14/2016 4:08 PM Disorder of iron Resul ts for this EDT metabolism procedure are in Status post the results bariatric surgery section. VITAMIN B12 Routine 07/14/2016 4:08 PM Status post Results f or this EDT bariatric surgery procedure are in the results section. documented in this encounter Results Hemogram (07/14/2016 4:08 PM EDT) P athologist Signature WBC 7.9 4.0 - 9.5 [facility]AT[facility] RBC 4.14 4.00 - V[facility]N DAMIAN 5.21 [facility] x10(6)/[facility] LABORATORY Hemoglobin 12.4 11.7 - [facility] 15.[facility] gm/dL [facility] Hematocrit 35.8 35.7 - [facility] 45.8 % [facility] MCV 86.5 82.6 - [facility] 94.4 [facility] LABORATORY MCH 30.0 27.1 - [facility] DAMIAN 32.0 pg [facility] MCHC 34.6 31.7 - [facility] 35.0 gm/dL [facility] Platelets 291 145 - 357 [facility] x10(3)/[facility] LABORATORY RDWSD 39.6 37.0 - [place] DAMIAN 46.0 [facility] LABORATORY RDWCV 12.5 11.5 - [facility] DAMIAN 14.1 % [facility] LAB[facility] MPV 9.8 7.6 - 12.9 [facility] DAMIAN [facility] LABORATORY nRBC % Auto 0.0 % [facility] LABORATORY nRBC Abs Auto 0.000 0.000 - [place] DAMIAN 0.000 [facility] x10(3)/[facility] LABORATORY Specimen Anatomical Collection Method Collection Time Receive d Time (Source) Location / / Volume Laterality Blood specimen 07/14/2016 4:08 PM 017 4:18 (specimen) EDT PM EDT Resulting Agency Comment Spec In Lab Alyse Cannon APRN HEMATOLOGY ORDERABLES Performing Organization Address City/State/[place]IP [place] [address] Folate, serum (07/14/2016 4:08 PM EDT) P athologist Signature Folate Lvl >20.0 4.8 - 24.2 [facility] DAMIAN ng/mL [facility] Specimen Anatomical Collection Method Collection Time Receive d Time (Source) Location / / Volume Laterality Blood specimen 07/14/2016 4:08 PM 017 4:18 (specimen) EDT PM EDT Resulting Agency Comment Spec In Lab Alyse Cannon APRN CHEMISTRY ORDERABLES Performing Organization Address City/[facility]/[place] [address] (ABNORMAL) Vitamin B1, whole blood (07/14/2016 4:08 PM EDT) P athologist Signature Vit B1 Lvl WB 185 (H) 70 - 180 [facility] nmol/L [facility] Comment: ADDITIONAL INFORMATIO N This test was developed and its performa nce characteristics determined by [facility] in a manner co nsistent with CLIA requirements. This test has not been lorenza ared or approved by the U.S. Food and Drug Administration. Test Performed by: [place] [address] Specimen Anatomical Collection Method Collection Time Receive d Time (Source) Location / / Volume Laterality Blood specimen 07/14/2016 4:08 PM 017 8:47 (specimen) EDT AM EDT Resulting Agency Comment Spec In Lab Alyse Cannon APRN CHEMISTRY ORDERABLES Performing Organization Address City/[facility]/[place] [address] (ABNORMAL) Vitamin B12 (07/14/2016 4:08 PM EDT) Analysis Performed At Patho logist Time Signature Vitamin B-12 1,590 (H) 207 - 974 [facility] pg/mL [facility] Specimen Anatomical Collection Method Collection Time Receive d Time (Source) Location / / Volume Laterality Blood specimen 07/14/2016 4:08 PM 017 4:18 (specimen) EDT PM EDT Resulting Agency Comment Spec In Lab Alyse Cannon APRN CHEMISTRY ORDERABLES Performing Organization Address City/State/[place] [address] Ferritin (07/14/2016 4:08 PM EDT) athologist Signature Ferritin 40 15 - 150 [facility] ng/mL [facility] Comment: Pediatric reference ranges not verified at [facility], interpret with caution. Reference ranges for females greater sae n 50 years of age approach values for men, i.e., 30-400 ng/mL. Specimen Anatomical Collection Method Collection Time Receive d Time (Source) Location / / Volume Laterality Blood specimen 07/14/2016 4:08 PM 017 4:18 (specimen) EDT PM EDT Resulting Agency Comment Spec In Lab Alyse Cannon APRN CHEMISTRY ORDERABLES Performing Organization Address City/[facility]/ZIP Code [facility] [place] [address] (ABNORMAL) Iron and TIBC (07/14/2016 4:08 PM EDT) athologist Signature Iron 48 30 - 150 [facility] m[facility]dL [facility] TIBC 295 250 - 450 [facility] Iron Saturation 16 (L) 20 - 50 % [facility] Specimen Anatomical Collection Method Collection Time Receive d Time (Source) Location / / Volume Laterality Blood specimen 07/14/2016 4:08 PM 017 4:18 (specimen) EDT PM EDT Resulting Agency Comment Spec In Lab Alyse Cannon APRN CHEMISTRY ORDERABLES Performing Organization Address City/State/ZIP [facility] [place] [address] Prealbumin (07/14/2016 4:08 PM EDT) athologist Signature Prealbumin 32 20 - 40 [facility] mg/dL [facility] Comment: Prealbumin levels are generally lower in the pediatric population; adult concentrations are usually attained near puberty. 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
--- OUTSIDE RECORDS SUMMARY | 2021-10-09 00:09 | XMS_ITS | Encounter Summary ---
:1975 Author Organization [facility] Address [address] [place] [address] Care Team Providers Name Role Phone Soraya Lovett MD Primary Care Provider Encounter Details Date Type Department Care Team Description 06/17/2016 Historical Results [facility] - Ricardo, Anuj Goff, Only [facility] - Main [facility] [address] [place] [phone] [place] [address] [place] [address] Social History Tobacco Use Types Packs/Day Years [...] MD 1311 [facility] [address] [place], [place] [id number] (Wo rk) documented as of this encounter Procedures Procedure Name Priority Date/Time Associated Diagnosis Comme nts LIPID PANEL POC - Routine 06/17/2016 14:42 Result s for this [facility] EDT procedure are i n the results section. documented in this encounter Results LIPID PANEL POC - [facility] (06/17/2016 14:42 EDT) Pathologist Sig nature Triglyceride 106 0.00 - 150.00 MG/DL [facility] Cholesterol 194 0.00 - 200.00 MG/DL [facility] HDL 56 40.00 - 60.00 MG/DL [facility] Specimen Performing Organization Address City/State/ZIP Code Phon e Number [facility] [address] [place] [address] [facility] documented in this encounter Visit Diagnoses Not on filedocumented in this encounter Care Teams Senior Actuarial Analyst Relationship Specialty Start Date End Date Soraya Lovett MD PCP - General 12/12/13 05/06/21 [address] [place] [address] documented as of this encounter
--- OUTSIDE RECORDS SUMMARY | 2021-10-09 00:09 | XMS_ITS | Encounter Summary ---
:1975 Author Organization [facility] Address [address] [place] [address] Care Team Providers Name Role Phone Soraya Lovett MD Primary Care Provider Encounter Details Date Type Department Care Team Description 11/22/[address] [facility] - Lynda Herrera, Only [facility] [place] Main [facility] [place] [address] [place], [place] [address] [place] [address] [phone] Social History Tobacco Use Types Packs/Day Years Used Date Never Smoker Alcohol Use Standard Drinks/Week Comments Yes 0 (1 standard drink = 0.6 oz pure alcoho l) Sex Assigned at Date Recorded Not on file documented as of this encounter Plan of Treatment Upcoming Encounters Date Type Specialty Care Team Description 01/08/2022 Office Visit Orthopedic Surgery Derrell Baig MD 1311 [facility] [address] [place] [address] (Wo rk) documented as of this encounter Procedures Procedure Name Priority Date/Time Associated Diagnosis Comme nts LIPID PANEL POC - Routine 11/22/2017 11:49 Result s for this [facility] EDT procedure are i n the results section. documented in this encounter Results LIPID PANEL POC - [facility] (11/22/2017 11:49 EDT) Pathologist Sig nature Triglyceride 94 0.00 - 150.00 MG/DL [facility] Cholesterol 161 0.00 - 200.00 MG/DL [facility] HDL 54 40.00 - 60.00 MG/DL [facility] Specimen Performing Organization Address City/State/ZIP Code Phon e Number [facility] [address] [place] [address] [facility] documented in this encounter Visit Diagnoses Not on filedocumented in this encounter Care Teams Instructional Technology Facilitator Relationship Specialty Start Date End Date Soraya Lovett MD PCP - General 12/12/13 05/06/21 [address] [place] [address] documented as of this encounter
--- OUTSIDE RECORDS SUMMARY | 2021-10-09 00:09 | XMS_ITS | Encounter Summary ---
:1975 Author Organization [facility] Address [address] [place] [address] Care Team Providers Name Role Phone Soraya Lovett MD Primary Care Provider Encounter Details Date Type Department Care Team Description 09/22/2016 Hospital Encounter [facility] - Unknown, Provi [facility] [phone] [place] [address] (Work) [place], [place] [phone] Social History Tobacco Use Types Packs/Day Years Used Date Never Smoker Alcohol Use Standard Drinks/Week Comments Yes 0 (1 standard drink = 0.6 oz pure alcoho l) Sex Assigned at Date Recorded Not on file documented as of this encounter Medications at Time of Discharge Medication Sig Dispensed Refills Start Date End Date ergocalciferol (DRISDOL; 1 cap(s) orally 0 2016 VITAMIN D2) 1,250 mcg once a week (50,000 unit) capsule LOPERAMIDE HCL (IMODIUM A-D Take by mouth. 0 04/12/2019 ORAL) documented as of this encounter Discharge Disposition Disposition Code Departure Means Destination Home or Self Nursing Home documented in this encounter Plan of Treatment Upcoming Encounters Date Type Specialty Care Team Description 01/08/2022 Office Visit Orthopedic Surgery Derrell Baig MD 1311 [facility] [address] [place] [address] (Wo rk) documented as of this encounter Visit Diagnoses Not on filedocumented in this encounter Care Teams Pants Busheler Relationship Specialty Start Date End Date Soraya Lovett MD PCP - General 12/12/13 05/06/21 [address] [place] [address] documented as of this encounter
--- OUTSIDE RECORDS SUMMARY | 2021-10-09 00:09 | XMS_ITS | Encounter Summary ---
:1975 Author Organization [facility] Address [address] [place] [address] Care Team Providers Name Role Phone Soraya Lovett MD Primary Care Provider Encounter Details Date Type Department Care Team Description 10/21/[address] [facility] PRISM MD [phone] 1311 [facility] [address] [place], [place] [phone] (Wo rk) Social History Tobacco Use Types Packs/Day Years Used Date Never Smoker Alcohol Use Standard Drinks/Week Comments Yes 0 (1 standard drink = 0.6 oz pure alcoho l) Sex Assigned at Date Recorded Not on file documented as of this encounter Plan of Treatment Upcoming Encounters Date Type Specialty Care Team Description 01/08/2022 Office Visit Orthopedic Surgery Derrell Baig MD 1311 [facility] [address] [place], [place] [phone] (Wo rk) documented as of this encounter Visit Diagnoses Not on filedocumented in this encounter Care Teams Welfare Supervisor Relationship Specialty Start Date End Date Soraya Lovett MD PCP - General 12/12/13 05/06/21 [address] [place] [address] documented as of this encounter
--- OUTSIDE RECORDS SUMMARY | 2021-10-09 00:09 | XMS_ITS | Encounter Summary ---
:1975 Author Organization [facility] Address [address] [place] [address] Care Team Providers Name Role Phone Soraya Lovett MD Primary Care Provider Encounter Details Date Type Department Care Team Description 11/18/2016 Historical Results Only [facility] - Soraya Rojo se, MD [facility] Lab - Main [address] [phone] Social History Tobacco Use Types Packs/Day [...] MD 1311 [facility] [address] [place] [address] (Wo rk) documented as of this encounter Procedures Procedure Name Priority Date/Time Associated Comments Diagnosis LIPID PANEL POC - CV Routine 11/18/2016 12:33 R esults for this EDT procedure are i n the results section. COMPREHENSIVE Routine 11/18/2016 12:33 Results fo r this METABOLIC POC - [facility] EDT procedu re are in the results section. MAGNESIUM POC - CV Routine 11/18/2016 12:33 Res ults for this EDT procedure are i n the results section. CBC W/PLT & DIFF,POINT Routine 11/18/2016 12:33 R esults for this OF CARE - CV EDT procedure are in the results section. POCT CHOLESTEROL LDL Routine 11/18/2016 12:33 Res ults for this ([facility]) EDT procedure are i n the results section. documented in this encounter Results MAGNESIUM POC - [facility] (11/18/2016 12:33 EDT) Pathologist Sig nature Magnesium 2.00 1.60 - 2.30 MG/DL [facility] Specimen Performing Organization Address [facility] Phon e Number [facility] [address] LAB LIPID PANEL POC - [facility] (11/18/2016 12:33 EDT) Pathologist Sig nature Triglyceride 99 0.00 - 150.00 MG/DL [facility] Cholesterol 145 0.00 - 200.00 MG/DL [facility] HDL 52 40.00 - 60.00 MG/DL [facility] Specimen Performing Organization Address City/[facility] Code Phon e Number [facility] [address] LAB POCT CHOLESTEROL LDL ([facility]) (11/18/2016 12:33 EDT) Pathologist Sig nature LDL CHOLESTEROL - [facility] 73 60 - 100 mg/dl [facility] Specimen Performing Organization Address City/[facility] Phon e Number [facility] [address] LAB (ABNORMAL) COMPREHENSIVE METABOLIC POC - [facility] (11/18/2016 12:33 EDT) Pathologist Sig nature ALBUMIN - [facility] 3.9 3.50 - 5.00 [facility] G/DL CENTER LAB ALKALINE PHOSPHATASE - 41 38.00 - 126.00 [facility] U/L CENTER LAB BILIRUBIN TOTAL 0.7 0.20 - 1.30 [facility] MG/DL CENTER LAB BUN - [facility] 14 7.00 - 20.00 [facility] MG/DL CENTER LAB CALCIUM - [facility] 9.0 8.50 - 10.50 [facility] MG/DL CENTER LAB Chloride 105 98.00 - 107.00 [facility] MMOL/L CENTER LAB CO2 Total 26 22.00 - 30.00 [facility] MMOL/L CENTER LAB CREATININE 0.6 (L) 0.70 - 1.50 [facility] MG/DL [place] [facility] Anion Gap 8 7 - 17 [facility] GLUCOSE - [facility] 76 70.00 - 100.00 [facility] MG/DL [place] [facility] Potassium 4.1 3.50 - 5.10 [facility] MMOL/L [place] [facility] Sodium 139 137.00 - 145.00 [facility] MMOL/L [place] [facility] TOTAL PROTEIN - [facility] 6.4 6.30 - 8.20 [facility] G/DL [place] [facility] SGOT/AST - [facility] 21 15.00 - 46.00 [facility] U/L [place] [facility] SGPT/ALT - [facility] 33 13.00 - 69.00 [facility] U/L [place] [facility] Specimen Performing Organization Address City/State/ZIP Code Phon e Number [facility] [address] LAB (ABNORMAL) CBC W/PLT & DIFF,POINT OF CARE [facility] (11/18/2016 12:33 EDT) Pathologist Sig nature Gran # 4.4 1.4 - 6.5 [facility] X10E3/UL [place] [facility] GRAN % - [facility] 69.8 42.2 - 75.2 % [facility] HEMATOCRIT - [facility] 37.3 35.0 - 60.0 % [facility] HEMOGLOBIN - [facility] 12.1 11.0 - 18.0 [facility] G/DL [place] [facility] LYMPH # - [facility] 1.6 1.2 - 3.4 [facility] X10E3/UL [place] [facility] LYMPH% - [facility] 26.1 20.5 - 51.1 % [facility] MEAN CORPUSCULAR HGB 29.5 27.0 - 31.0 PG [facility] ME D [facility] CENTER LAB MEAN CORPUSCULAR HGB 32.5 (L) 33.0 - 37.0 [facility] CONC [facility] G/DL [place] [facility] MEAN CELL VOLUME - 90.6 80.0 - 99.9 [place] [facility] CENTER LAB MONO # - [facility] 0.3 0.1 - 0.6 [facility] X10E3/UL [place] [facility] MONO% - [facility] 4.1 1.7 - 9.3 % [facility] MEAN PLATELET VOLUME 7.9 7.8 - 11.0 FL [facility] - [facility] CENTER LAB PLATELET COUNT 217 150 - 450 [facility] X10E3/UL CENTER LAB RED BLOOD COUNT - 4.11 4.00 - 6.00 [facility] X10E6/UL [place] [facility] RED CELL DISTRI WIDTH 13.4 11.6 - 13.7 % [facility] D - [facility] CENTER LAB WHITE BLOOD COUNT - 6.3 4.5 - 10.5 [facility] X10E3/UL [place] [facility] Specimen Performing Organization Address City/State/ZIP Code Phon e Number [facility] [address] [place] [address] [facility] documented in this encounter Visit Diagnoses Not on filedocumented in this encounter Care Teams Deli Slicer Relationship Specialty Start Date End Date Soraya Lovett MD PCP - General 12/12/13 05/06/21 [address] [place] [address] documented as of this encounter
--- OUTSIDE RECORDS SUMMARY | 2021-10-09 00:09 | XMS_ITS | Encounter Summary ---
:1975 Author Organization [facility] Address [address] [place] [address] Care Team Providers Name Role Phone Soraya Lovett MD Primary Care Provider Encounter Details Date Type Department Care Team Description 11/19/2016 Historical Results [facility] - Lynda Herrera, Only [facility] Lab - Main [facility] [address] [place], [place] [address] [place] [address] [phone] Social History Tobacco Use Types Packs/Day Years Used Date Never Smoker Alcohol Use Standard Drinks/Week Comments Yes 0 (1 standard drink = 0.6 oz pure alcoho l) Sex Assigned at Date Recorded Not on file documented as of this encounter Plan of Treatment Upcoming Encounters Date Type Specialty Care Team Description 01/08/2022 Office Visit Orthopedic Surgery Derrell Baig MD 1311 [facility] [address] [place] [address] (Wo rk) documented as of this encounter Procedures Procedure Name Priority Date/Time Associated Diagnosis Comme nts POCT DRUG SCREEN, Routine 11/19/2016 11:32 Result s for this URINE EDT procedure are i n the results section. documented in this encounter Results POCT DRUG SCREEN, URINE (11/19/2016 11:32 EDT) Pathologist Sig nature AMPHETAMINES NEG NEGATIVE [facility] BARBITURATES,UR - [facility] NEG NEGATIVE [facility] [place] [facility] BENZODIAZEPINES NEG NEGATIVE [facility] COCAINE,URINE - [facility] NEG NEGATIVE [facility] MAMP (METHAMPHETAMINES - NEG NEGATIVE [facility] LAB MARIJUANA,URINE - [facility] NEG NEGATIVE [facility] MTD (METHADONE) - [facility] NEG NEGATIVE [facility] OPIATES,URINE - [facility] NEG NEGATIVE [facility] OXY (OXYCODONE) - [facility] NEG NEGATIVE [facility] PCP (PHENCYCLIDINE) - CV NEG NEGATIVE [facility] PROPOXYPHENE (PPX) - [facility] NEG NEGATIVE [facility] TRICYCLIC ANTIDEPRESSANTS - NEG NEGATIVE [facility] Specimen Performing Organization Address City/State/ZIP Code Phon e Number [facility] [address] [place] [address] [facility] documented in this encounter Visit Diagnoses Not on filedocumented in this encounter Care Teams Head Wrestling Coach Relationship Specialty Start Date End Date Soraya Lovett MD PCP - General 12/12/13 05/06/21 [address] [place] [address] documented as of this encounter
--- OUTSIDE RECORDS SUMMARY | 2021-10-09 00:09 | XMS_ITS | Encounter Summary ---
:1975 Author Organization [facility] Address [address] [place] [address] Care Team Providers Name Role Phone Soraya Lovett MD Primary Care Provider Encounter Details Date Type Department Care Team Description 06/22/2016 Historical Results Only [facility] - Soraya Rojo se, MD [facility] Lab - Main [place] [phone] Social History Tobacco Use Types Packs/Day Years Used Date Never Smoker Alcohol Use Standard Drinks/Week Comments Yes 0 (1 standard drink = 0.6 oz pure alcoho l) Sex Assigned at Date Recorded Not on file documented as of this encounter Plan of Treatment Upcoming Encounters Date Type Specialty Care Team Description 01/08/2022 Office Visit Orthopedic Surgery Derrell Baig MD 1311 [facility] [address] [place] [address] (Wo rk) documented as of this encounter Procedures Procedure Name Priority Date/Time Associated Diagnosis Comme nts FOLATE Routine 06/22/2016 12:40 Results for this EDT procedure are i n the results section. VITAMIN B12 Routine 06/22/2016 12:40 Results for this EDT procedure are i n the results section. THYROID STIM Routine 06/22/2016 11:45 Results for this HORMONE POC - [facility] EDT procedure are in the results section. documented in this encounter Results FOLATE (06/22/2016 12:40 EDT) Pathologist [facility] FOLIC ACID - [facility] >24.00 ng/mL [facility] Comment: [facility] Reference Range/Expected Values: Normal Serum Folate: ?>5.38 ng/mL ? Deficient Serum Folate: ? 0.35 - 3.34 ng/mL Indeterminate Serum Folate: ?? 3.38 - 5.38 ng/mL Specimen Narrative [facility] - 017 19:05 EDT Does PT Have a Latex Allergy? NO Performing Organization Address City/[facility]/ZIP Code Phon e Number [facility] [address] [place], [place] [phone] [place] [address] LAB VITAMIN B12 (06/22/2016 12:40 EDT) Pathologist Sig nature VITAMIN B12 - [facility] 895 211 - 911 pg/mL [facility] Specimen Narrative [facility] - 017 19:05 EDT Does PT Have a Latex Allergy? NO Performing Organization Address City/[facility]/ZIP Code Phon e Number [facility] [address] [place] [address] [facility] THYROID STIM HORMONE POC - [facility] (06/22/2016 11:45 EDT) Pathologist Sig nature THYROID STIM HORMONE 1.57 0.34 - 5.60 [facility] LAB Specimen Performing Organization Address City/[facility] Code Phon e Number [facility] [address] [place] [address] [facility] documented in this encounter Visit Diagnoses Not on filedocumented in this encounter Care Teams Land Leasing Information Clerk Relationship Specialty Start Date End Date Soraya Lovett MD PCP - General 12/12/13 05/06/21 [address] [place] [address] documented as of this encounter
--- OUTSIDE RECORDS SUMMARY | 2021-10-09 00:09 | XMS_ITS | Encounter Summary ---
:1975 Author Organization [facility] Address [address] [place] [address] Care Team Providers Name Role Phone Soraya Lovett MD Primary Care Provider Encounter Details Date Type Department Care Team Description 03/01/2018 Hospital Encounter [facility] - Unknown, Provi [facility] [phone] [place] [address] (Work) [place], [place] [phone] Social History Tobacco Use Types Packs/Day Years [...] Code Departure Means Destination Home or Self [facility] documented in this encounter Plan of Treatment Upcoming Encounters Date Type Specialty Care Team Description 01/08/2022 Office Visit Orthopedic Surgery Derrell Baig MD 1311 [facility] [address] [place] [address] (Wo rk) documented as of this encounter Visit Diagnoses Not on filedocumented in this encounter Care Teams Valve Seater Operator Relationship Specialty Start Date End Date Soraya Lovett MD PCP - General 12/12/13 05/06/21 [address] [place] [address] documented as of this encounter
--- OUTSIDE RECORDS SUMMARY | 2021-10-09 00:09 | XMS_ITS | Encounter Summary ---
:[address] [facility] Address [address] [place] [address] Care Team Providers Name Role Phone Soraya Lovett MD Primary Care Provider Encounter Details Date Type Department Care Team Description 04/28/2017 Historical Results Only [facility] - Soraya Rojo se, [place] [facility] [place] [place] - Main [facility] [address] [facility] [address] [place] [phone] Social History Tobacco Use Types Packs/Day [...] [facility] [address] [place] [id number] (Wo rk) documented as of this encounter Procedures Procedure Name Priority Date/Time Associated Diagnosis Comme nts MAGNESIUM POC - Routine 04/28/2017 12:43 Results for this [facility] EST procedure are i n the results section. documented in this encounter Results MAGNESIUM POC - [facility] (04/28/2017 12:43 EST) Pathologist Sig nature Magnesium 2.00 1.60 - 2.30 MG/DL [facility] LAB Specimen Performing Organization Address City/State/ZIP Code Phon e Number [facility] [address] LAB documented in this encounter Visit Diagnoses Not on filedocumented in this encounter Care Teams Financial Assistant Relationship Specialty Start Date End Date Soraya Lovett MD PCP - General 12/12/13 05/06/21 [address] [place] [address] documented as of this encounter
--- OUTSIDE RECORDS SUMMARY | 2021-10-09 00:09 | XMS_ITS | Encounter Summary ---
:1975 Author Organization [facility] Address [address] [place] [address] Care Team Providers Name Role Phone Soraya Lovett MD Primary Care Provider Encounter Details Date Type Department Care Team Description 09/02/2015 Historical Results Only [facility] - Soraya Rojo se[place] [facility] [place] [address] [phone] Social History Tobacco Use Types Packs/Day Years Used Date Never Smoker Alcohol Use Standard Drinks/Week Comments Yes 0 (1 standard drink = 0.6 oz pure alcoho l) Sex Assigned at Date Recorded Not on file documented as of this encounter Plan of Treatment Upcoming Encounters Date Type Specialty Care Team Description 01/08/2022 Office Visit Orthopedic Surgery Derrell Baig MD [address] [facility] [address] [place] [address] (Wo rk) documented as of this encounter Procedures Procedure Name Priority Date/Time Associated Diagnosis Comme nts XR KNEE LEFT 4 OR 09/02/2015 12:19 Result s for this MORE VIEWS EDT procedure are i n the results section. XR KNEE 4 OR MORE 09/02/2015 12:18 Result s for this VIEWS EDT procedure are i n the results section. documented in this encounter Results XR KNEE LEFT 4 OR MORE VIEWS (09/02/2015 12:19 EDT) Specimen Narrative [facility] - 09/02/2015 12:23 EDT ? EXAM: RADIOLOGY/KNEE COMPLETE LT 4+VIEW ?? EX. D/ (1211) ? CLINICAL INFORMATION: ? M25.561, M25.562 ? PAIN/SWELLING LT>RT ? INDICATION: M25.561, M25.562: RACHEAL N/SWELLING LT>RT PAIN,SWELLING LT ? KNEE GREATER THAN RT ? TECHNIQUE: 4 views left knee. ? COMPARISON: None. ? FINDINGS: ?Tricompartmental j oint space narrowing is seen. This is ? most advanced in the medial carmela rtment where there is near complete ? loss of the joint space with weig htbearing. Tricompartmental marginal ? osteophytes are noted. No appreci able effusion is seen. Multiple ? bodies are seen along the posteri or joint line. ? IMPRESSION: ? 1. Moderate/advanced tricompartme ntal osteoarthritis, most advanced ? in the medial compartment. ? REPORT SIGNED IN OTHER VENDOR SYSTEM 09/02/2015 ?Reported B y: Jethro Vo MD ? CC: ? Transcribed Date/Time: 09/02/2015 (1223) ? Therapist'S Assistant: ? Printed Date/Time: 08/25/2018 (00 24) ? PAGE 1 ? Shantelle d Report ? Procedure Note Jethro Vo MD - 01/17/2019 EXAM: RADIOLOGY/KNEE COMPLETE LT 4+VIEW EX. D/ (1211) CLINICAL INFORMATION: M25.561, M25.562 PAIN/SWELLING LT>RT INDICATION: M25.561, M25.562: PAIN/SWEL LING LT>RT PAIN,SWELLING LT KNEE GREATER THAN RT TECHNIQUE: 4 views left knee. COMPARISON: None. FINDINGS: Tricompartmental joint space narrowing is seen. This is most advanced in the medial compartment where there is near complete loss of the joint space with weightbear ing. Tricompartmental marginal osteophytes are noted. No appreciable e ffusion is seen. Multiple bodies are seen along the posterior mary alice nt line. IMPRESSION: 1. Moderate/advanced tricompartmental o steoarthritis, most advanced in the medial compartment. REPORT SIGNED IN OTHER VENDOR SYSTEM 09/02/2015 Reported By: Jethro Vo MD CC: Transcribed Date/Time: 09/02/2015 (1223 ) Therapist'S Assistant: Printed Date/Time: 08/25/2018 (0027) PAGE 1 Signed Report Performing Organization Address City/State/ZIP Code Phon e Number [facility] RAD[facility] XR KNEE 4 OR MORE VIEWS (09/02/2015 12:18 EDT) Specimen Narrative [facility] RAD[facility] - 09/02/2015 12:22 EDT ? EXAM: RADIOLOGY/KNEE COMPLETE RT 4+VIEW ?? EX. D/ (1212) ? CLINICAL INFORMATION: ? M25.561, M25.562 ? PAIN/SWELLING LT>RT ? INDICATION: M25.561, M25.562: RACHEAL N/SWELLING LT>RT PAIN,SWELLING LT ? KNEE GREATER THAN RT ? TECHNIQUE: 4 views right knee. ? COMPARISON: None. ? FINDINGS: The patient is status p ost proximal tibial ORIF. There is a ? medial plate with multiple screws . Tricompartmental joint space ? narrowing is seen, very advanced in the lateral compartment. ? Tricompartmental marginal osteoph ytes are noted. There is a small ? joint effusion. Patellofemoral co mpartment marginal osteophytes are ? noted. ? IMPRESSION: ? 1. Tricompartmental severe osteoa rthritis, most advanced in the ? lateral compartment. ? 2. Proximal tibial hardware as di scussed. ? 3. Small joint effusion. ? REPORT SIGNED IN OTHER VENDOR SYSTEM 09/02/2015 ?Reported B y: Jethro Vo MD ? CC: ? Transcribed Date/Time: 09/02/2015 (1222) ? Therapist'S Assistant: ? Printed Date/Time: 08/25/2018 (00 24) ? PAGE 1 ? Shantelle d Report ? Procedure Note Jethro Vo MD - 01/17/2019 EXAM: RADIOLOGY/KNEE COMPLETE RT 4+VIEW EX. D/ (1212) CLINICAL INFORMATION: M25.561, M25.562 PAIN/SWELLING LT>RT INDICATION: M25.561, M25.562: PAIN/SWEL LING LT>RT PAIN,SWELLING LT KNEE GREATER THAN RT TECHNIQUE: 4 views right knee. COMPARISON: None. FINDINGS: The patient is status post pr oximal tibial ORIF. There is a medial plate with multiple screws. Tric ompartmental joint space narrowing is seen, very advanced in the lateral compartment. Tricompartmental marginal osteophytes a re noted. There is a small joint effusion. Patellofemoral compartm ent marginal osteophytes are noted. IMPRESSION: 1. Tricompartmental severe osteoarthrit is, most advanced in the lateral compartment. 2. Proximal tibial hardware as discusse d. 3. Small joint effusion. REPORT SIGNED IN OTHER VENDOR SYSTEM 09/02/2015 Reported By: Jethro Vo MD CC: Transcribed Date/Time: 09/02/2015 (1221 ) Therapist'S Assistant: Printed Date/Time: 08/25/2018 (0023) PAGE 1 Signed Report Performing Organization Address City/State/ZIP Code Phon e Number [facility] documented in this encounter Visit Diagnoses Not on filedocumented in this encounter Care Teams Wire Cutter Relationship Specialty Start Date End Date Soraya Lovett MD PCP - General 12/12/13 05/06/21 [address] [place] [address] documented as of this encounter
--- OUTSIDE RECORDS SUMMARY | 2021-10-09 00:09 | XMS_ITS | Encounter Summary ---
:1975 Author Organization [facility] Address [address] [place] [address] Care Team Providers Name Role Phone Soraya Lovett MD Primary Care Provider Encounter Details Date Type Department Care Team Description 03/02/2018 Historical Results Only [facility] - Soraya Rojo se, MD [facility]iology Resul [place] [phone] Social History Tobacco Use Types Packs/Day Years Used Date Never Smoker Alcohol Use Standard Drinks/Week Comments Yes 0 (1 standard drink = 0.6 oz pure alcoho l) Sex Assigned at Date Recorded Not on file documented as of this encounter Plan of Treatment Upcoming Encounters Date Type Specialty Care Team Description 01/08/2022 Office Visit Orthopedic Surgery Derrell Baig MD [address] [facility] [address] [place] [address] (Wo rk) documented as of this encounter Procedures Procedure Name Priority Date/Time Associated Diagnosis Comme nts MA BREAST SCREENING 03/02/2018 10:21 Resu lts for this RAJ BILATERAL EST procedure are in the results section. documented in this encounter Results MA BREAST SCREENING RAJ BILATERAL (03/02/2018 10:21 EST) Specimen Narrative [facility] - 03/02/2018 10:21 EST ? EXAM: MAMMOGRAM/MAMMO BILATERAL SCREEN W ??EX. D/ (1812) ? CLINICAL INFORMATION: ? Z12.31 SCREENING ? INDICATION: Z12.31 SCREENING SCRE ENING Feb 05 ? TECHNIQUE: ??Full field digital w hole breast 2D (C-view) and 3D CC and ? MLO views of both breasts were ob tained. CAD technology was utilized. ? FINDINGS: ??The fibroglandular pa tterns of the breasts are normal. ? There has been no change when com pared to previous mammograms and ? there is no mammographic evidence of cancer. The breast tissue is of ? scattered density. ? FINAL ASSESSMENT BILATERAL BREAST : ??BI-RADS Category 1 - Negative. ? Routine mammographic follow-up is recommended. ? These results will be communicate d to your patient via a lay letter ? from Radiology. ??If any addition al imaging is needed we will contact ? your patient directly. ? REPORT SIGNED IN OTHER VENDOR SYSTEM 03/02/2018 ?Reported B y: Nicola Miramontes MD ? CC: ? Transcribed Date/Time: 03/02/2018 (1021) ? Delivery Lead: ? Printed Date/Time: 09/03/2018 (12 54) ? PAGE 1 ? Shantelle d Report ? Procedure Note Nicola Miramontes MD - 01/18/2019 EXAM: MAMMOGRAM/MAMMO BILATERAL SCREEN W EX. D/ (1813) CLINICAL INFORMATION: Z12.31 SCREENING INDICATION: Z12.31 SCREENING SCREENING Feb 05 TECHNIQUE: Full field digital whole varghese ast 2D (C-view) and 3D CC and MLO views of both breasts were obtained . CAD technology was utilized. FINDINGS: The fibroglandular patterns o f the breasts are normal. There has been no change when compared to previous mammograms and there is no mammographic evidence of ca ncer. The breast tissue is of scattered density. FINAL ASSESSMENT BILATERAL BREAST: BI-R ADS Category 1 - Negative. Routine mammographic follow-up is recom mended. These results will be communicated to y our patient via a lay letter from Radiology. If any additional imagi ng is needed we will contact your patient directly. REPORT SIGNED IN OTHER VENDOR SYSTEM 03/02/2018 Reported By: Nicola Miramontes MD CC: Transcribed Date/Time: 03/02/2018 (1021 ) Delivery Lead: Printed Date/Time: 09/03/2018 (4262) PAGE 1 Signed Report Performing Organization Address City/State/ZIP Code Phon e Number [facility] documented in this encounter Visit Diagnoses Not on filedocumented in this encounter Care Teams Director Of Special Services Relationship Specialty Start Date End Date Soraya Lovett MD PCP - General 12/12/13 05/06/21 [address] [place] [address] documented as of this encounter
--- OUTSIDE RECORDS SUMMARY | 2021-10-09 00:09 | XMS_ITS | Encounter Summary ---
:1975 Author Organization [facility] Address [address] [place] [address] Care Team Providers Name Role Phone Soraya Lovett MD Primary Care Provider Encounter Details Date Type Department Care Team Description 02/18/2016 Historical Results [facility] - Ricardo, Anuj Goff, Only [facility] - [facility] [address] [place] [address] [place] [address] Social History Tobacco Use Types Packs/Day Years Used Date Never Smoker Alcohol Use Standard Drinks/Week Comments Yes 0 (1 standard drink = 0.6 oz pure alcoho l) Sex Assigned at Date Recorded Not on file documented as of this encounter Plan of Treatment Upcoming Encounters Date Type Specialty Care Team Description 01/08/2022 Office Visit Orthopedic Surgery Derrell Baig MD [address] [facility] [address] [place], [place] [id number] (Wo rk) documented as of this encounter Procedures Procedure Name Priority Date/Time Associated Diagnosis Comme nts VITAMIN D 25 POC - Routine 02/18/2016 9:43 EST Re sults for this [facility] procedure are i n the results section. documented in this encounter Results (ABNORMAL) VITAMIN D 25 POC - [facility] (02/18/2016 9:43 EST) Pathologist Sig nature VIT D, 25 HYDROXY - 29 (L) 30.00 - 100.00 [facility] ng/ml CENTER LAB Specimen Performing Organization Address City/State/ZIP Code Phon e Number [facility] [address] [place] [address] [facility] documented in this encounter Visit Diagnoses Not on filedocumented in this encounter Care Teams Scooper Relationship Specialty Start Date End Date Soraya Lovett MD PCP - General 12/12/13 05/06/21 [address] [place] [address] documented as of this encounter
--- OUTSIDE RECORDS SUMMARY | 2021-10-09 00:09 | XMS_ITS | Encounter Summary ---
:1975 [place] [address] Care Team Providers Name Role Phone Soraya Lovett MD Primary Care Provider Encounter Details Date Type Department Care Team Description 02/12/2016 Telephone General Surgery at [facility] Alyse Cannon, PHYSICIAN NEONATOLOGY [facility] [place] [phone] GENERAL SURGERY [phone] [place], [place] [address] (Wo rk) Social History Tobacco Use Types Packs/Day Years Used Date Never Smoker Smokeless Tobacco: Never Used Alcohol Use Standard Drinks/Week Comments No 0 (1 standard drink = 0.6 oz pure alcoho l) Sex Assigned at Date Recorded Not on file documented as of this encounter Miscellaneous Notes Telephone Encounter - Alyse Cannon - 02/12/2016 9:38 AM EST Bariatric Surgery Program S/P LSG 02/02 Seng was contacted regarding pain management of severe DJD. She reports that her primary care officerecommended that the BSP manage her knee pain early post op but has not checked with the office postsurgery. She is doing well overall, getting at least 48 hours of water, as well as protein drinks. She has nosignificant nausea. She experienced constipation last week, relieved with colace She has not as yet returned to work, has been active around her home. On average, she is taking1-2 doses a day of 5 ml oxycodone.for knee pain. She reports that Celebrex has been very helpful for her knee pain. Her goal is to decrease to once aday. Plan: she was advised that I discussed a pain management strategy with Dr. 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 She is in agreement with the plan of care. She has a follow up scheduled with Dr Padilla on 02/24 documented in this encounter Plan of Treatment Not on filedocumented as of this encounter Visit Diagnoses Not on filedocumented in this encounter Care Teams Food Dehydrator Operator Relationship Specialty Start Date End Date Soraya Lovett MD PCP - General Family Medicine 12/04/15 [address] [place] [address] documented as of this encounter
--- OUTSIDE RECORDS SUMMARY | 2021-10-09 00:09 | XMS_ITS | Encounter Summary ---
:1975 Author Organization [facility] [place] [address] Care Team Providers Name Role Phone Soraya Lovett MD Primary Care Provider Encounter Details Date Type Department Care Team Description 02/25/2016 Office Visit General Surgery at Odiliap[facility]oma[facility] MD [facility] [place] [address] Postoperative state [facility] Amanda Cooper, [place] [address] Social History Tobacco Use Types Packs/Day Years Used Date Never Smoker Smokeless Tobacco: Never Used Alcohol Use Standard Drinks/Week Comments No 0 (1 standard drink = 0.6 oz pure alcoho l) Sex Assigned at Date Recorded Not on file documented as of this encounter Last Filed Vital Signs Vital Sign Reading Time Taken Comments Blood Pressure 123/73 02/25/2016 4:03 PM EST Pulse 84 02/25/2016 4:03 PM EST Temperature 36.6 ??C (97.9 ??F) 02/25/2016 4:03 PM EST Respiratory Rate 16 02/25/2016 4:03 PM EST Oxygen Saturation 100% 02/25/2016 4:03 PM EST Inhaled Oxygen Concentration - - Weight 105.6 kg (232 lb 14.4 oz) 02/25/2016 4:03 PM EST Height 167.6 cm (5' 5.98) 02/25/2016 4:03 PM EST Body Mass Index 37.61 02/25/2016 4:03 PM EST documented in this encounter Patient Instructions Patient InstructionsAmanda Cooper - 02/25/2016 3:30 PM EST Bariatric Surgery Program First Post-operative Follow up visit Contact information: [facility] Admin coordinator Marisa: [phone] Dietitian: [phone] Surgeons/ nurse practitioner: [phone] Nurse line: [phone] Your excess body weight lost: 21.6% Keep up the great work! Next follow up visit: at 4 months post-op. Testing: Labwork will be done at your 4 month post op check. If you have labwork done by your doctor before that date, please have it sent to the Bariatric Surgery Program. Post surgery Medications: 1. Medication to prevent ulcer, as prescribed prior to surgery, needs to continue until you are at least 3 months post surgery, or as indicated by your primary care doctor. 2. If you have a gallbladder, continue to take Ursodiol 300 mg twice daily for a total of 6 months after surgery to prevent gallstones from forming, and to shrink any gallstones that may be present. Vitamin and mineral supplementation recommendations: The following vitamins are recommended: ??? Multivitamins with minerals twice daily- needs to be an under 50 multivitamin that contains iron. No senior multivitamins. (Or read the serving size if taking a Bariatric specific multivitamin such as procare). You can split the Bariatric Fusion to 2 chews twice a day. ??? Vitamin B12 500 mcg by mouth [...] or anemia. Nutrition recommendations: Continue to consume 3 high protein meals per day, aim for 60 grams protein every day. - Your Daily Goals: ?? 3 meals per day. Snacks if physically hungry or you need to increase your protein and/or calories(choose protein and/or fruit) ?? 60 grams protein per day (20 grams per meal) ?? 48-64 oz of non-caloric and hydrating fluids per day (6-8, 8 oz cups) Activity: ??? Aim for 30 minutes of exercise daily, 5 days a week of both cardio and strength training exercises. Alcohol: should be used sparingly, no more than one drink per occasion. Alcohol is a source of emptycalories and can cause ulcers and vitamin and mineral deficiencies. Studies have noted that there isan increased risk of alcohol dependence after surgery. control for women of child bearing age: is recommended for at least 18-24 months after surgery. Call us: ??? If you have concerns. ??? If you have unexplained abdominal pain. ??? if you see blood in your stool or vomit blood ??? If you have prolonged vomiting Post Surgery Support Group: Our post surgery support group meets on the first Tuesday of every month from 1-2 PM at [facility] Internet resources: Www.FutureAdvisor www.UseTogether Www.Opticul [employer]ostics Www.Choosemyplate.gov Www.Catbird.Muzzley [facility] facebook page: [email or web address]ricSurgery Bariatric surgery apps- [facility] Post-ghazal Books: - Recipes for Life after Weight Loss Surgery by Torie Naik (2012) - Shrink Yourself by Dr Star Judd documented in this encounter Progress Notes Amanda Cooper - 02/25/2016 3:30 PM EST BSP Nutrition First Post-operative Follow up SUBJECTIVE: Topics Discussed/Patient Concerns: ?? She felt pretty nauseas in the hospital but not since she's been home. She has vomited from food related incidents. Last night she ate too quickly and vomited. She also has vomited after eating chili that was too think from the beans soaking up too much liquid. OBJECTIVE: Date of Bariatric Surgery: 02/03/16 Type of Bariatric Surgery: Laparoscopic Sleeve Gastrectomy Weight History: Date Weight (lbs) HT BMI Comments 265# Highest Weight (patient reported) 08/12/15 262# 66 42.3 Initial program weight 12/23/15 259# 66 41.8 1st pre-op visit 02/03/16 260# EWL % 42 Surgery 02/25/16 232# 21.6% 37.6 1 month post-op 4 months post-op [place] Body Weight (based on BMI of 25): 154.9# Excess Weight: 104.1# Goal weight: 190# Predicted weight loss with surgery is an estimated 50-70% of excess body weight, which would be a goal weight between 180-207#. 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 She has chickens, ducks, hens, geese, sheep, and rabits. MEDICATIONS: Taking ulcer prevention medication: yes Taking Ursodiol (if appropriate): yes Opioid/ pain medication use: Took most of it, has 3 doses left. She took it for both abdominal pain and knee pain. Vitamin/Mineral Supplements (reported by patient): Supplement Type Brand/Form Dosage/Amount Frequency Comments Multivitamin Briatric Fusion chewable 1 4x/ day Calcium 1200 mg in MVI Vitamin B12 560 mcg in MVI Iron Sunhealth ? dose 3x since surgery With vitamin C, spaces from calcium Vitamin D3 none PCP tested her for it, waiting for results Tracking Intake: She entered in meals she was planning on eating to make sure she was on track for the first few days of the stage 2 and stage 3 diets. She reports getting 50-60 grams protein per day. Daily Oral Intake: Stage 3 diet Breakfast Protein yogurt- plain yogurt w/ 1/2 scoop cabott protein powder and splenda and homemade spiced applesauce Or 16 oz skim milk w/ 1 scoop protein powder and 1/2 cup frozen blueberries AM Snack Sometimes applesauce Lunch 1 cup of soup with lentils, butternut squash, and ground turkey or tomato soup with spices and turkey pepperoni and fat free ricotta cheese Or 3/4 cup chili w/ a dallop of yogurt She tries to eat a little bit of canned green beans or well cooked broccoli with the soup or chili PM Snack Sometimes finishes the protein shake from the morning or has a protein shake if she did notmake it for breakfast. Dinner 1 cup of soup with lentils, butternut squash, and ground turkey or tomato soup with spices and turkey pepperoni and fat free ricotta cheese Or 3/4 cup chili w/ a dallop of yogurt She tries to eat a little bit of canned green beans or well cooked broccoli with the soup or chili HS Snack Protein- grams/day: 50-60 grams Calories per day: 700-900 kcal Hydrating fluids - oz/day: 48 oz water and 16 oz protein shake and 8 oz decaf coffee in the morning Soda: none ETOH: none Caffeine: Occasionally she has a little bit of half caf coffee after she finishes her first water bottle Meals per day: 3/ day Other: ?? Feels full/satisfied after eating: yes ?? Spends at least 20 minutes eating each meal: 20-25 minutes, sometimes food doesn't go down too well and she has to stop eating after a couple of bites, wait an hour, and then go back to eating. ?? Vomiting/ regurgitation: Vomited 6 times since she came home from surgery. 2 times she vomited from taking iron. And 4 times were food related, from eating too quickly or from eating soup that was too thick ?? Nausea: Really bad in the hospital but not anymore, nausea went away when she started the stage 2diet. ?? Constipation/diarrhea: A little bit of diarrhea due to IBS, has a bowel movement 1-3 times per day. Food Allergies/Intolerances: Thick soups Exercise: Has been active at home, catching up on house cleaning and lately snowblowing the driveway. She has a free gym membership through her work and she plans to start going 3 times per week when she goes back to work. She still tires out quickly. ASSESSMENT: Patient s/p bariatric surgery with 21.6% EWL. PLAN: ?? Evaluation by Dr. Padilla today. ?? Provided support/encouragement and reinforced importance of meeting nutritional goals. ?? Reviewed nutrition and vitamin and mineral supplement recommendations (see patient instructions). ?? Written recommendations provided. Patient agreed with these and verbalized. adequate understanding. ?? Follow up at 4 months post surgery with labwork. documented in this encounter Plan of Treatment Not on filedocumented as of this encounter Visit Diagnoses Diagnosis Postoperative state Other postprocedural status documented in this encounter Care Teams Field Coordinator Relationship Specialty Start Date End Date Soraya Lovett MD PCP - General Family Medicine 12/04/15 [address] [place] [address] documented as of this encounter
--- OUTSIDE RECORDS SUMMARY | 2021-10-09 00:09 | XMS_ITS | Encounter Summary ---
:1975 Author Organization [facility] Address [address] [place] [address] Care Team Providers Name Role Phone Soraya Lovett MD Primary Care Provider Encounter Details Date Type Department Care Team Description 02/10/2018 Historical Results Only [facility] - Soraya Rojo se, MD [facility] - Main [place] [id number] Social History Tobacco Use Types Packs/Day Years Used Date Never Smoker Alcohol Use Standard Drinks/Week Comments Yes 0 (1 standard drink = 0.6 oz pure alcoho l) Sex Assigned at Date Recorded Not on file documented as of this encounter Plan of Treatment Upcoming Encounters Date Type Specialty Care Team Description 01/08/2022 Office Visit Orthopedic Surgery Derrell Baig MD [address] [facility] [address] [place] [address] (Wo rk) documented as of this encounter Procedures Procedure Name Priority Date/Time Associated Comments Diagnosis HUMAN PAPILLOMAVIRUS Routine 02/10/2018 9:39 Resu lts for this (HPV) DETECTION-HIGH EST procedu re are in RISK TYPES the results section. PAP TEST Routine 02/10/2018 Results for thi s procedure are i n the results section. documented in this encounter Results HUMAN PAPILLOMAVIRUS (HPV) DETECTION-HIGH RISK TYPES (02/10/2018 9:39 EST) Human Papillomavirus NEG [facility] (HPV) Detection-High Comment: [facility] Types Negative for HPV types 16, 18, 31, 33, 35, 39, 45, 51, 52, 56, 58, 59, 66, 68. Method: Cervista HPV HR (High Risk) DNA test. Specimen Performing Organization Address City/State/ZIP Code Phon e Number [facility] [address] [place], [place] [id number] [place] [address] LAB PAP TEST (02/10/2018) Specimen Narrative [facility] - 018 8:15 EST Name: VANNA MUSE ? : [birth year] ?Age/Sex: 42/F ?Unit#: [id number] ? Loc: [facility] ? Status: REG REF ?? Reg Date: 02/10/18 ? Pt.Phone Number : ? Specimen: [id number] ?JORGE BRUCE: SOUT ?Spec Date:02/10/18 ? Physician Copies: ?Soraya Lovett MD ? Tissues: ? Cervical/Endo Pap ? CPT: 82862 ?? Units: ??1 ? CYTOLOGY DIAGNOSIS SPECIMEN ADEQUACY: ?Satisfactory for evaluation. Transformation zone component ABSENT. GENERAL CATEGORIZATION: ?Negative fo r Intraepithelial Lesion or Malignancy DESCRIPTIVE DIAGNOSIS: ? Negative fo r Intraepithelial Lesion or Malignancy. ?HPV DNA RESULTS ? LABORATORY ?? Date ? Time Test ?Result ?? Flag ?Normal Range ?? 11/30/18 0939 HPV DNA RESULT ??NEG ? Negative for HP V types 16, 18, 31, 33, 35, 39, 45, 51, 52, ? 56, 58, 59, 66, 68. ? Method: Cervist a HPV HR (High Risk) DNA test. ORDER QUERIES: LMP: 01/31/18- ?Preg nant? ?? Post ?PREVIOUS ATYPICAL: ?? BCP/HRT? ?? Rad Rx? ?? IUD?PAP PL US HPV? Y ??REFLEX TO HR-HPV IF ASCUS ?? REFLEX TO HPV 16/18 IF HPV POS/PAP NEG Y HPV REGARDLESS?RFLX HPV IF LSIL ?? Signed Shell Jimenez CT(ASCP) 02/20/18 By the signature above, the attending ph ysician certifies that he/she has personally conducted a gross and/or microscopic exa mination of the described specimens and rendered or confirmed the above diagnosi s. Test Performed by [facility], [address] [place] [address] Manager Visual: Jess Fleming MD PHD Performing Organization Address City/State/ZIP Code Phon e Number [facility] [address] [place] [address] [facility] documented in this encounter Visit Diagnoses Not on filedocumented in this encounter Care Teams Enamel Burner Relationship Specialty Start Date End Date Soraya Lovett MD PCP - General 12/12/13 05/06/21 [address] [place], [place] [address] documented as of this encounter
--- OUTSIDE RECORDS SUMMARY | 2021-10-09 00:09 | XMS_ITS | Encounter Summary ---
:1975 Author Organization [facility] Address [address] [place] [address] Care Team Providers Name Role Phone Soraya Lovett MD Primary Care Provider Encounter Details Date Type Department Care Team Description 09/02/2015 Hospital Encounter [facility] - Unknown, [facility] [phone] [place] [address] (Work) [place] [address] Social History Tobacco Use Types Packs/Day Years [...] or Self Intermediate documented in this encounter Plan of Treatment Upcoming Encounters Date Type Specialty Care Team Description 01/08/2022 Office Visit Orthopedic Surgery Drerell Baig MD [address] [facility] [address] [place], [place] [id number] (Wo rk) documented as of this encounter Visit Diagnoses Not on filedocumented in this encounter Care Teams Hand Cloth Examiner Relationship Specialty Start Date End Date Soraya Lovett MD PCP - General 12/12/13 05/06/21 [address] [place] [address] documented as of this encounter
--- OUTSIDE RECORDS SUMMARY | 2021-10-09 00:09 | XMS_ITS | Encounter Summary ---
:1975 Author Organization [facility] [place] [address] Care Team Providers Name Role Phone Soraya Lovett MD Primary Care Provider Encounter Details Date Type Department Care Team Description 05/21/2016 Orders Only General Surgery at [facility] Ketty Olvera, [place] [address] Social History Tobacco Use Types Packs/Day Years Used Date Never Smoker Smokeless Tobacco: Never Used Alcohol Use Standard Drinks/Week Comments No 0 (1 standard drink = 0.6 oz pure alcoho l) Sex Assigned at Date Recorded Not on file documented as of this encounter Plan of Treatment Not on filedocumented as of this encounter Visit Diagnoses Not on filedocumented in this encounter Care Teams Wire Frame Dipper Relationship Specialty Start Date End Date Soraya Lovett MD PCP - General Family Medicine 12/04/15 [address] [place] [address] documented as of this encounter
--- OUTSIDE RECORDS SUMMARY | 2021-10-09 00:09 | XMS_ITS | Clinical Summary ---
:1975 Author Organization [facility] [place] [address] Care Team Providers Name Role Phone Soraya Lovett MD Primary Care Provider Allergies Active Allergy Reactions Severity Noted Date Comments Pineapple Hives Medium 12/23/2015 Raw pineapple c auses mouth hives Hydrocodone-Acetaminophen Hives Medium 12/23/2015 fe vers Medications Medication Sig Dispensed Refills Start Date End Date Status celecoxib (CELEBREX) Take 200 mg by 0 Active 200 mg Capsule mouth 2 times daily. multivitamin Take 1 tablet by 0 Active (THERAGRAN) Tablet mouth 2 times daily. ferrous sulfate 325 mg Take 325 mg by 0 Active (65 mg iron) Tablet mouth daily. ascorbic acid, vitamin Take 500 mg by 0 Active C, (VITAMIN C) 500 mg mouth. Tablet oxyCODONE-acetaminophe take 1 tablet by 0 06/23/2016 Active n (PERCOCET) 5-325 mg mouth every 6 Tablet hours if needed VITAMIN D 50,000 unit take 1 capsule by 0 06/23/2016 Active Capsule mouth every week folic acid (FOLVITE) 1 take 1 tablet by 0 05/31/2016 Active mg Tablet mouth once daily loperamide (IMODIUM Take by mouth 4 0 Active A-D) 2 mg Tablet times daily as needed for Diarrhea. Maximum 16 mg in 24 hours CALCIUM Take 600 mg by 0 Activ e CITRATE/VITAMIN D2 mouth 2 times (CALCIUM CITRATE WITH daily. D ORAL) CYANOCOBALAMIN, Take 500 mcg by 0 Active VITAMIN B-12, ORAL mouth daily. diclofenac (VOLTAREN) Apply 2 g 0 Active 1 % Gel topically 4 times daily. acetaminophen Take 1,000 mg by 0 Active (TYLENOL) 500 mg mouth every 6 Tablet hours as needed for Pain. 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 Path: unremarkable 12/04/2015 Resolved Problems Problem Noted Date Resolved Date Obesity, Class III, BMI 40-49.9 (morbid obesity) 02/03/2016 07/18/2016 Menorrhagia 12/11/2015 05/27/2017 Preoperative Class III obesity BMI 42, sleeve gastrectomy 07/14/2016 planned 02/03/16 Overview: Bariatric Surgery Program 1. Attended Introduction to the [facility] Ba riatric Surgery Program seminar, a comprehensive two hour meeting that provides a program overview, education on bariatric surgeries offered at [facility], risks and be nefits, as well as patient expectations and follow up: 08/15/2015. [facility] BSP Educational seminars viewed: Grades on post-testing: The BSP Educational Handbook is provided at preoperative visit #1. 2. Pre-operative programmatic evaluation s required: PCP evaluation and letter of support to proceed with surgery, BSP labwork (can be done on day of visit #1) and psychological evaluation- minimum of 2 visits. 3. Bariatric Surgery Program evaluations with RD and STORE STOCK HELP: 12/23/15 4. Weight history: 242# on 11/29/13, 260# on 06/25/14, 262# on 08/12/15, 255# on 11/13/15, 259 pounds on 12/23/15 5. Gallbladder status: 6. Insurer specific requirements: BCBS o f [place] 7. BSP Team meeting discussion: no indic ation Patient insight into causes of obesity: age of onset 2; factors attributed to obesity are eating for emotional wellbeing and inactivity. Reported brief bingeing and purging at age 14 Prediabetes 12/04/2015 05/27/2017 Family History Medical History Relation Comments Heart Disease Father [place] at age 50 Obesity Father Diabetes Maternal Grandfather Kidney Cancer Mother Obesity Mother Diabetes Paternal Grandfather Relation Status Comments Brother Alive Father Alive Maternal Grandfather Mother Paternal Grandfather Social History Tobacco Use Types Packs/Day Years Used Date Never Smoker Smokeless Tobacco: Never Used Alcohol Use Standard Drinks/Week Comments No 0 (1 standard drink = 0.6 oz pure alcoho l) Sex Assigned at Date Recorded Not on file Last Filed Vital Signs Vital Sign Reading [...] Mass Index 34.24 05/26/2017 3:35 PM EDT Plan of Treatment Health Maintenance Due Date Last Done Comments Covid-19 Vaccine (#1) 1978 HIV screen 09/28/1991 Hepatitis C Screening 09/28/1991 Tdap adult 1992 Tetanus vaccine 1992 HPV test 09/28/2003 PAP Smear 09/28/2003 Breast Cancer Share Decision Needed 2013 Colonoscopy 2018 Influenza (Flu) vaccine (1 of 1 - Influenza standard 11/12/2021 series) Medical Devices Implanted Type Area Manager Float Device Shelf Model / Identifier Expiration Serial / Date Lot Nel Hodges Biosorb,Stpl ([id number]) - [id number] IMPLANTS N/ A: DO NOT USE WL 08/11/2018 [id number] / Implanted: Qty: 1 on 02/03/2016 by Tim Padilla MD at [facility] [id number] - [id number] Advance Directives Latest Code Status on File Code Status Date Activated Date Inactivated Comments Full Code 02/03/2016 7:19 AM 02/05/2016 6:03 PM Does patient have capacity to make decision: Yes Care Teams Scaffolding Helper Relationship Specialty Start Date End Date Soraya Lovett MD PCP - General Family Medicine 12/04/15 [address] [place] [address]
--- OUTSIDE RECORDS SUMMARY | 2021-10-09 00:09 | XMS_ITS | Encounter Summary ---
:1975 Author Organization [facility] Address [address] [place] [address] Care Team Providers Name Role Phone Soraya Lovett MD Primary Care Provider Encounter Details Date Type Department Care Team Description 12/07/[address] [facility] Kop Toyin boyd, DIGITAL FORENSICS INVESTIGATOR [facility] - Main [facility] [address] [place], [place] [phone] Social History Tobacco Use Types Packs/Day [...] MD [address] [facility] [address] [place] [address] (Wo rk) documented as of this encounter Procedures Procedure Name Priority Date/Time Associated Diagnosis Comme nts POCT DRUG SCREEN, Routine 12/07/2017 17:51 Result s for this URINE EDT procedure are i n the results section. documented in this encounter Results POCT DRUG SCREEN, URINE (12/07/2017 17:51 EDT) Pathologist Sig nature AMPHETAMINES NEG NEGATIVE [facility] BARBITURATES,UR - [facility] NEG NEGATIVE [facility] [place] [facility] BENZODIAZEPINES NEG NEGATIVE [facility] COCAINE,URINE - [facility] NEG NEGATIVE [facility] MAMP (METHAMPHETAMINES - NEG NEGATIVE [facility] MARIJUANA,URINE - [facility] NEG NEGATIVE [facility] MTD (METHADONE) - CV NEG NEGATIVE [facility] OPIATES,URINE - [facility] NEG NEGATIVE [facility] OXY (OXYCODONE) - [facility] POS NEGATIVE [facility] PCP (PHENCYCLIDINE) - CV NEG NEGATIVE [facility] PROPOXYPHENE (PPX) - [facility] NEG NEGATIVE [facility] TRICYCLIC ANTIDEPRESSANTS - NEG NEGATIVE [facility] Specimen Performing Organization Address City/State/ZIP Code Phon e Number [facility] [address] [place] [address] [facility] documented in this encounter Visit Diagnoses Not on filedocumented in this encounter Care Teams Assembler Type Bar And Segment Relationship Specialty Start Date End Date Soraya Lovett MD PCP - General 12/12/13 05/06/21 [address] [place] [address] documented as of this encounter
--- OUTSIDE RECORDS SUMMARY | 2021-10-09 00:09 | XMS_ITS | Encounter Summary ---
:1975 Author Organization [facility] Address [address] [place] [address] Care Team Providers Name Role Phone Soraya Lovett MD Primary Care Provider Encounter Details Date Type Department Care Team Description 09/22/2016 Historical Results [facility] - Tre Baig Only [facility] Rad[facility] MD Shell Results [address] [place] [address] [address] [place] [address] (Wo rk) Social History Tobacco Use Types Packs/Day Years Used Date Never Smoker Alcohol Use Standard Drinks/Week Comments Yes 0 (1 standard drink = 0.6 oz pure alcoho l) Sex Assigned at Date Recorded Not on file documented as of this encounter Plan of Treatment Upcoming Encounters Date Type Specialty Care Team Description 01/08/2022 Office Visit Orthopedic Surgery Derrell Baig MD [address] [facility] [address] [place] [address] (Wo rk) documented as of this encounter Procedures Procedure Name Priority Date/Time Associated Diagnosis Comme nts XR KNEE RIGHT 4 OR 09/22/2016 16:17 Resul ts for this MORE VIEWS EDT procedure are i n the results section. documented in this encounter Results XR KNEE RIGHT 4 OR MORE VIEWS (09/22/2016 16:17 EDT) Specimen Narrative [facility] - 09/22/2016 16:20 EDT ? EXAM: RADIOLOGY/KNEE RT ARTHRITIS SERIES ??EX. D/ (1533) ? CLINICAL INFORMATION: ? RIGHT KNEE DJD M17.9 ? KNEE RT ARTHRITIS SERIES 4V ? Signs and Symptoms/Comments: ??RI GHT KNEE DJD M17.9 ? Comparison: 09/02/2015 ? Findings: ? Right Knee: Standing AP, PA flexi on, lateral and sunrise views were ? performed. An old proximal tibial fracture is present with intact ? hardware. No acute fracture or ma lalignment is identified. Severe ? tricompartmental osteoarthrosis i s present with bulky osteophytosis ? and significant joint space narro wing, overall similar or mildly ? progressed compared to one year p rior. A lobulated 13 mm ? calcification projecting over the posterior recess of the ? tibiofemoral compartment is suspi cious for an osteochondral loose ? body. A persistent trace joint ef fusion is present. ? Left Knee: A single standing PA f lexion view was performed. No acute ? fracture or malalignment is visib le on the single view provided. ? Moderate-severe tricompartmental osteoarthrosis remains most advanced ? in the medial tibiofemoral compar tment. Degenerative changes are ? similar to one year prior. A smal l smooth calcification at the ? superior pole of the patella is c hronic and compatible with a ? fragmented osteophyte. The absenc e of a lateral view precludes ? complete evaluation for joint eff usion. ? IMPRESSION: ? 1. ??Severe right knee tricompart mental osteoarthrosis, similar or ? mildly progressed compared to one year prior. ? 2. ??Lobulated 13 mm calcificatio n projecting over the posterior ? recess of the right knee joint, s uspicious for an osteochondral loose ? body. ? 3. ??Moderate-severe left knee tr icompartmental osteoarthrosis, ? similar to one year prior. ? REPORT SIGNED IN OTHER VENDOR SYSTEM 09/22/2016 ?Reported B y: Nicola Miramontes MD ? CC: ? Transcribed Date/Time: 09/22/2016 (1620) ? Front Desk Attendant: ? Printed Date/Time: 08/28/2018 (12 30) ? PAGE 1 ? Shantelle d Report ? Procedure Note Nicola Miramontes MD - 01/17/2019 EXAM: RADIOLOGY/KNEE RT ARTHRITIS SERIE S EX. D/ (1533) CLINICAL INFORMATION: RIGHT KNEE DJD M17.9 KNEE RT ARTHRITIS SERIES 4V Signs and Symptoms/Comments: RIGHT KNEE DJD M17.9 Comparison: 09/02/2015 Findings: Right Knee: Standing AP, PA flexion, la teral and sunrise views were performed. An old proximal tibial fract ure is present with intact hardware. No acute fracture or malalign ment is identified. Severe tricompartmental osteoarthrosis is pres ent with bulky osteophytosis and significant joint space narrowing, overall similar or mildly progressed compared to one year prior. A lobulated 13 mm calcification projecting over the poste rior recess of the tibiofemoral compartment is suspicious for an osteochondral loose body. A persistent trace joint effusion is present. Left Knee: A single standing PA flexion view was performed. No acute fracture or malalignment is visible on the single view provided. Moderate-severe tricompartmental osteoa rthrosis remains most advanced in the medial tibiofemoral compartment. Degenerative changes are similar to one year prior. A small smoo th calcification at the superior pole of the patella is chronic and compatible with a fragmented osteophyte. The absence of a lateral view precludes complete evaluation for joint effusion. IMPRESSION: 1. Severe right knee tricompartmental o steoarthrosis, similar or mildly progressed compared to one year prior. 2. Lobulated 13 mm calcification projec ting over the posterior recess of the right knee joint, suspici ous for an osteochondral loose body. 3. Moderate-severe left knee tricompart mental osteoarthrosis, similar to one year prior. REPORT SIGNED IN OTHER VENDOR SYSTEM 09/22/2016 Reported By: Nicola Miramontes MD CC: Transcribed Date/Time: 09/22/2016 (2391 ) Front Desk Attendant: Printed Date/Time: 08/28/2018 (4757) PAGE 1 Signed Report Performing Organization Address City/State/ZIP Code Phon e Number [facility] documented in this encounter Visit Diagnoses Not on filedocumented in this encounter Care Teams Facility Manager Histology Relationship Specialty Start Date End Date Soraya Lovett MD PCP - General 12/12/13 05/06/21 [address] [place] [address] documented as of this encounter
--- OUTSIDE RECORDS SUMMARY | 2021-10-09 00:09 | XMS_ITS | Encounter Summary ---
:1975 Author Organization [facility] Address [address] [place] [address] Care Team Providers Name Role Phone Soraya Lovett MD Primary Care Provider Reason for Visit Reason Comments Excision lesion in left nostril Encounter Details Date Type Department Care Team Description 01/23/2014 Office Visit [facility] ENT Unknown, Provider, Internal nasal lesion - [place] Ayush Patel MD [address] [place] [address] [address] (Primary Dx) [address] [place] [address] Social History Tobacco Use Types Packs/Day Years Used Date Never Smoker Alcohol Use Standard Drinks/Week Comments Yes 0 (1 standard drink = 0.6 oz pure alcoho l) Sex Assigned at Date Recorded Not on file documented as of this encounter Progress Notes Ayush Patel MD - 01/23/2014 1136 EST PROCEDURE: Excision of left intranasal lesion. Informed consent. The procedure along with the possible risks, complications, alternatives and aims were discussed in detail with the patient who understands these risks and agrees with the procedure. OPERATIVE PROCEDURE: The patient was placed in a supine position, given adequate local anesthesia, prepped and draped in the usual sterile manner. Final verification was performed and using the operating microscope the lesion was grasped with a small forceps and excised using a #15 blade. The base was cauterized with a needle hyfrecator and bleeding was also controlled with silver nitrate. Specimen was not sent to pathology. Wound care instructions were discussed with the patient. PLAN: Follow up with ENT p.r.n. documented in this encounter Plan of Treatment Upcoming Encounters Date Type Specialty Care Team Description 01/08/2022 Office Visit Orthopedic Surgery Derrell Baig MD [address] [address] (Wo rk) documented as of this encounter Visit Diagnoses Diagnosis Internal nasal lesion - Primary Other diseases of nasal cavity and sinus es documented in this encounter Care Teams Hotbed Transfer Operator Relationship Specialty Start Date End Date Soraya Lovett MD PCP - General 12/12/13 05/06/21 [address] [place], [place] [address] documented as of this encounter
--- OUTSIDE RECORDS SUMMARY | 2021-10-09 00:09 | XMS_ITS | Encounter Summary ---
:1975 Author Organization [facility] [place] [address] Care Team Providers Name Role Phone Soraya Lovett MD Primary Care Provider Encounter Details Date Type Department Care Team Description 10/05/2018 Telephone General Surgery at [facility] [place] [address] Social History Tobacco Use Types Packs/Day Years Used Date Never Smoker Smokeless Tobacco: Never Used Alcohol Use Standard Drinks/Week Comments No 0 (1 standard drink = 0.6 oz pure alcoho l) Sex Assigned at Date Recorded Not on file documented as of this encounter Miscellaneous Notes Telephone Encounter - Joelle Napoles - 10/05/2018 12:47 PM EDT Left message for patient to call and schedule her FUV which is due with the BSP documented in this encounter Plan of Treatment Not on filedocumented as of this encounter Visit Diagnoses Not on filedocumented in this encounter Care Teams Gunite Mixer Relationship Specialty Start Date End Date Soraya Lovett MD PCP - General Family Medicine 12/04/15 [address] [place] [address] documented as of this encounter
--- OUTSIDE RECORDS SUMMARY | 2021-10-09 00:10 | XMS_ITS | Encounter Summary ---
:1975 Author Organization [facility] [address] Care Team Providers Name Role Phone Soraya Lovett MD Primary Care Provider Encounter Details Date Type Department Care Team Description 12/04/2015 Telephone General Surgery at [facility] Sarina Strickland [place] [facility] [place] [address] [place] [id number] [phone] (Wo rk) Social History Tobacco Use Types Packs/Day Years Used Date Never Assessed Sex Assigned at Date Recorded Not on file documented as of this encounter Miscellaneous Notes Telephone Encounter - Sarina Strickland APRN - 12/04/2015 1:23 PM EDT Bariatric Surgery Program Pre-visit Chart Review Chart review was done. Attempted to contact Seng but no answer and unable to leave a message since her mailbox is full. ____ all necessary information has been received/ is available. Chart review is complete. No furtherinformation is needed. Appointments will be scheduled ____ Initial appointments will be scheduled. The following information is needed: _X___ Initial appointments cannot be made at the current time because the following information is needed: Lab _X__ Missing labwork can be done on day of initial visit ___ Hemoglobin A1c is significantly elevated, and will need to be under 8-8.5 prior to proceeding with surgery. Follow up with primary care team or endocrinology is Mental health: _X__ psychological evaluation ___ evidence of ongoing counseling ___ follow up with mental health clinician regarding psychological evaluation recommended. Primary care information: _X__copy of recent comprehensive history and physical exam by primary care physician within the pastyear, with discussion of weight loss attempts Quizzes _X__ completion of Bariatric Surgery educational videos and post-testing ____retake quiz. Other: _X__ PAP results _X__ Mammogram _X__ 5 year weight history _X__ Problem list documented in this encounter Plan of Treatment Not on filedocumented as of this encounter Visit Diagnoses Not on filedocumented in this encounter Care Teams Cupola Liner Helper Relationship Specialty Start Date End Date Soraya Lovett MD PCP - General Family Medicine 12/04/15 [address] [place] [address] documented as of this encounter
--- OUTSIDE RECORDS SUMMARY | 2021-10-09 00:10 | XMS_ITS | Encounter Summary ---
:1975 Author Organization [facility] [place] [address] Care Team Providers Name Role Phone Unavailable Primary Care Provider Unavailable Encounter Details Date Type Department Care Team Description 11/21/2015 Telephone General Surgery at [facility] [place] [address] Social History Tobacco Use Types Packs/Day Years Used Date Never Assessed Sex Assigned at Date Recorded Not on file documented as of this encounter Miscellaneous Notes Telephone Encounter - Christy Lerner - 11/21/2015 12:58 PM EDT LMOM for Seng to let her know that we did receive information for her and that I would like to checkin with her about what else is needed. documented in this encounter Plan of Treatment Not on filedocumented as of this encounter Visit Diagnoses Not on filedocumented in this encounter
--- OUTSIDE RECORDS SUMMARY | 2021-10-09 00:10 | XMS_ITS | Encounter Summary ---
:1975 Author Organization [facility] [place] [address] Care Team Providers Name Role Phone Soraya Lovett MD Primary Care Provider Encounter Details Date Type Department Care Team Description 12/10/2015 Telephone General Surgery at [facility] Amanda Cooper, [place] [address] Social History Tobacco Use Types Packs/Day Years Used Date Never Assessed Sex Assigned at Date Recorded Not on file documented as of this encounter Miscellaneous Notes Telephone Encounter - Aamnda Cooper - 12/10/2015 10:04 AM EDT Bariatric Surgery Program Phone call to patient to discuss 3 consecutive monthly dietary visits per insurance guidelines. Patient saw the dietitian in August, October, and November. Patient reports she has an appointment with thedietitian in the beginning of December, so she wall have 3 consecutive visits. Patient has not completed the quizzes but she is planning on taking them soon. Let patient know I will pass her chart on [facility] nurse practitioner. Patient expressed she would like to have surgery before the end of the year. documented in this encounter Plan of Treatment Not on filedocumented as of this encounter Visit Diagnoses Not on filedocumented in this encounter Care Teams Correctional Security Officer Relationship Specialty Start Date End Date Soraya Lovett MD PCP - General Family Medicine 12/04/15 [address] [place] [address] documented as of this encounter
--- OUTSIDE RECORDS SUMMARY | 2021-10-09 00:10 | XMS_ITS | Encounter Summary ---
:1975 Author Organization [facility] [place] [address] Care Team Providers Name Role Phone Soraya Lovett MD Primary Care Provider Reason for Visit Auth/Cert Specialty Diagnoses / Procedures Referred By Contact Refer red To Contact Diagnoses pre op for bariatric surgery Procedures PRO UPPER GI ENDOSCOPY, DIAGNOSTIC PRO ANESTH, UGI ENDOSCOPY EGD, UPPER GI ENDOSCOPY Referral ID Status Reason Start Date Expiration Date Visits Requ ested Visits Authorized [id number] 1 1 Encounter Details Date Type Department Care Team Description 01/16/2016 Anesthesia Event Gastroenterology at [facility] Reggie Contreras MD [facility] [place] [address] [facility] Kathrin Castellanos CRNA [facility] [place] [address] [place] [phone] Anesthesia Record Procedure Summary Procedure Name Responsible Anesthesia Start Anesthesia Stop Time Anesthesiologist Time EGD, UPPER GI Reggie Contreras MD 01/16/16 0958 01/15 1020 ENDOSCOPY (N/A Trunk) Events Date Time Event Comment 01/16/2016 0958 AN Verify 0958 Start 1000 An Start Data 1001 1015 an stop data 1019 Recovery or ICU Handoff Patient care was transferred to the destination unit staff after review of the patient's medica l history, current anesthetic/surgi king status and plan, according to the Provider Handoff Checklist. 1020 Stop Name Total IV Lidocaine 50 mg Propofol 280 mg lactated ringers infusion 200 mL Agents Name O2 Blood No blood administrations on file. Lines, Drains, and Airways Type Details Placement Removal PIV 01/16/16; 0957; metacarpal 01/16/16 0957 by Willa er, 01/16/16 1053 by Brent, vein (top of hand), right; SUSI Reed RN 22 gauge; 01/16/16; 1053 documented in this encounter Social History Tobacco Use Types Packs/Day Years Used Date Never Smoker Alcohol Use Standard Drinks/Week Comments Yes 0 (1 standard drink = 0.6 oz pure alcoho l) socially Alcohol Habits Answer Date Recorded How often do you have a drink containing alcohol? Not asked How many drinks containing alcohol do you have on a typical Not asked day when you are drinking? How often do you have six or more drinks on one occasion? No t asked Comment: socially 01/16/2016 Sex Assigned at Date Recorded Not on file documented as of this encounter OR Notes Anesthesia Postprocedure Evaluation - Reggie Contreras MD - 01/20/2016 10:35 PM EST [facility] Department of Anesthesiology Post-procedure Note Patient: Seng Muse Procedure Summary Date Anesthesia Start Anesthesia Stop Room / Location 01/16/16 0958 1020 [facility] ENDO 8 / [facility] ENDOSCOPY Procedure Diagnosis Surgeon Responsible Provider EGD, UPPER GI ENDOSCOPY (N/A Trunk) (pre op for bariatric surgery) Yoko Marie MD Manfred, Christopher S, MD All Anesthesia Providers: Anesthesiologist: Reggie Contreras MD CAR REPAIRMAN: Kathrin Cassidy CRNA Last (1hr) Vitals: BP Temp Pulse Resp SpO2 Patient Location: PACU/[facility] Level of Consciousness: Awake and Alert Pain Management: Satisfactory Analgesia PONV: None Cardiovascular Status: At Baseline and Hemodynamically Stable Respiratory Status: At Baseline and Room Air Postoperative Fluid Status: Intravascular EUvolemia Possible Anesthetic Complications: NONE apparent at time of evaluation Final Primary Anesthesia Type: MAC (The anesthetic type performed was the same as planned.) Comments: REGGIE CONTRERAS MD Anesthesia Preprocedure Evaluation - Reggie Contreras MD - 01/16/2016 9:59 AM EDT Pre-Anesthesia Evaluation for: Seng Muse a 40 y.o. female. Procedure(s): EGD, UPPER GI ENDOSCOPY Patient Active Problem List Diagnosis ??? History of DVT (deep vein thrombosis) left arm ??? Iron deficiency ??? Menorrhagia ??? Morbid obesity with BMI of 40.0-44.9, adult Bariatric Surgery Program 1. Attended Introduction to the [facility] Bariatric Surgery Program seminar, a comprehensive two hour meeting that provides a program overview, education on bariatric surgeries offered at [facility], risks and benefits, as well as patient expectations and follow up: 08/15/2015. [facility] BSP Educational seminars viewed: Grades on post-testing: The BSP Educational Handbook is provided at preoperative visit #1. 2. Pre-operative programmatic evaluations required: PCP evaluation and letter of support to proceed with surgery, BSP labwork (can be done on day of visit #1) and psychological evaluation- minimum of 2visits. 3. Bariatric Surgery Program evaluations with RD and MAINTENANCE MECHANIC ELEVATORS: 12/23/15 4. Weight history: 242# on 11/29/13, 260# on 06/25/14, 262# on 08/12/15, 255# on 11/13/15, 259 pounds on 12/23/15 5. Gallbladder status: 6. Insurer specific requirements: [employer] of [place] 7. BSP Team meeting discussion: no indication Patient insight into causes of obesity: age of onset 2; factors attributed to obesity are eating foremotional wellbeing and inactivity. Reported brief bingeing and purging at age 14 ??? IBS (irritable bowel syndrome) ? Prediabetes No past medical history on file. Past Surgical History Procedure Laterality Date ??? Foot surgery Left 2012 [place] procedure ??? Tibia osteotomy Right 2007, 2008 ??? Carpal tunnel release Bilateral 2009 ??? First rib removal thoracic outlet syndrome Social History Substance Use Topics ??? Smoking status: Never Smoker ??? Smokeless tobacco: Not on file ??? Alcohol use Yes Comment: socially History Drug Use No Allergies Allergen Reactions ??? Pineapple Hives Raw pineapple causes mouth hives ??? Vicodin [Hydrocodone-Acetaminophen] Hives fevers Medications: MAR and/or home medications have been reviewed. Physical Exam: Vitals: 01/16/16 0942 BP: (!) 138/101 Pulse: 76 Resp: 16 There is no height or weight on file to calculate BMI. Airway Assessment: Mallampati: II TM distance: >3 FB Neck ROM: full Cardiovascular Assessment: cardiovascular exam normal Pulmonary Assessment: pulmonary exam normal Dental Assessment: - normal exam Misc Assessment: IV access: Peripheral line Anesthesia Plan: ASA 2 MAC, with a(n) intravenous induction This is a 40 y.o. Female with a pmhx significant for morbid obesity, DM II who presents for a screening EGD for bariatric surgery work-up. Denies problems with anesthesia, denies recent URI, denies GERD, denies CP/SOB, reports good functional tolerance (able to ambulate 2 FOS without problems), denies cardiopulmonary disease, and is appropriately NPO. Plan for and risks of anesthesia discussed in detail with the pt, all questions answered, consent obtained. Plan for MAC Region - Other Informed Consent: Anesthetic plan and risks discussed with patient. Plan discussed with CAR REPAIRMAN. PAT Staff Note documented in this encounter Plan of Treatment Not on filedocumented as of this encounter Visit Diagnoses Not on filedocumented in this encounter Administered Medications Inactive Administered Medications - up to 3 most recent administrations Medication Order MAR Action Action Date Dose Rate Site lidocaine (PF) (XYLOCAINE) 100 Given 01/16/2016 10:02 AM EDT 50 mg mg/5 mL (2 %) injection PRN, Starting on Tue01/16/16 at 1002, Until Tue01/16/16 at 1024, Anesthesia Intra-op, Routine propofol (DIPRIVAN) 10 mg/mL bolus injection Given 06/2015 10:12 AM EDT 30 mg (Anesthesia) PRN, Starting on Tue01/16/16 at 1002, Until Tue01/16/16 at 1024, Anesthesia Intra-op Given 01/16/2016 10:11 AM EDT 30 mg Given 01/16/2016 10:10 AM EDT 30 mg documented in this encounter Care Teams Garnetter Relationship Specialty Start Date End Date Soraya Lovett MD PCP - General Family Medicine 12/04/15 [address] [place] [address] documented as of this encounter
--- OUTSIDE RECORDS SUMMARY | 2021-10-09 00:10 | XMS_ITS | Encounter Summary ---
:1975 Author [place] [address] Care Team Providers Name Role Phone Soraya Lovett MD Primary Care Provider Encounter Details Date Type Department Care Team Description 12/25/2015 Telephone General Surgery at [facility] Alyse Cannon, N[place] [facility] [place] [address] GENERAL SURGERY [phone] [place], [place] [address] (Wo rk) Social History Tobacco Use Types Packs/Day Years Used Date Never Assessed Sex Assigned at Date Recorded Not on file documented as of this encounter Miscellaneous Notes Telephone Encounter - Alyse Cannon - 12/25/2015 10:31 AM EDT Bariatric Surgery Program Attempted to call Seng to discuss referral for upper endoscopy via [facility], which is currently booking into March. Unable to leave voice mail documented in this encounter Plan of Treatment Not on filedocumented as of this encounter Visit Diagnoses Not on filedocumented in this encounter Care Teams Alumni Coordinator Relationship Specialty Start Date End Date Soraya Lovett MD PCP - General Family Medicine 12/04/15 [address] [place] [address] documented as of this encounter
--- OUTSIDE RECORDS SUMMARY | 2021-10-09 00:10 | XMS_ITS | Encounter Summary ---
:1975 Author Organization [facility] [place] [address] Care Team Providers Name Role Phone Soraya Lovett MD Primary Care Provider Encounter Details Date Type Department Care Team Description 01/23/2016 Notes Only General Surgery at [facility] Alyse Cannon, NICOLA [facility] ([facility] [place] [address] GENERAL SURGERY [phone] [place], [place] [address] (Wo rk) Social History Tobacco [...] documented as of this encounter Progress Notes Alyse Cannon - 01/23/2016 5:56 PM EST Bariatric Surgery Program Discussion with Seng at preoperative class today regarding the routine hold of NSAIDs 1 week prior and 2 months after surgery. She has chronic severe joint pains, and holding celebrex without other treatment will be a significant hardship for her. She takes percocet infrequently. I advised her to discuss further with her primary care physician for non-NSAID pain recommendations, perhaps increasing percocet Rx, or tramadol or diclofenac 1% gel documented in this encounter Plan of Treatment Not on filedocumented as of this encounter Visit Diagnoses Not on filedocumented in this encounter Care Teams Assistant Director Of Public Works Relationship Specialty Start Date End Date Soraya Lovett MD PCP - General Family Medicine 12/04/15 [address] [place] [address] documented as of this encounter
--- OUTSIDE RECORDS SUMMARY | 2021-10-09 00:10 | XMS_ITS | Encounter Summary ---
:1975 Author Organization [facility] [place] [address] Care Team Providers Name Role Phone Soraya Lovett MD Primary Care Provider Reason for Visit Auth/Cert Specialty Diagnoses / Procedures Referred By Contact Refer red To Contact Diagnoses Obesity, morbid MORBID OBESITY Procedures PRO LAPAROSCOPY, SURG/GASTRIC RESTRICTIVE PROC, LONGITUDINAL GASTRECTOMY @LAPAROSCOPY, SURG/GASTRIC RESTRICTIVE PROC, LONGITUDINAL GASTRECTOMY Referral ID Status Reason Start Date Expiration Date Visits Requ ested Visits Authorized [id number] 1 1 Encounter Details Date Type Department Care Team Description 02/03/2016 - Hospital Encounter 4 [facility] Ernesto Otto ge 02/05/2016 [facility] MD [place] [facility] [place] GENERAL SURGERY [id number] [place] [address] [phone] Social History Tobacco Use Types Packs/Day Years Used Date Never Smoker Smokeless Tobacco: Never Used Alcohol Use Standard Drinks/Week Comments No 0 (1 standard drink = 0.6 oz pure alcoho l) Sex Assigned at Date Recorded Not on file documented as of this encounter Last Filed Vital Signs Vital Sign Reading Time Taken Comments Blood Pressure 158/89 02/05/2016 11:26 AM EST Pulse 81 02/05/2016 11:26 AM EST Temperature 37.2 ??C (99 ??F) 02/05/2016 11:26 AM EST Respiratory Rate 16 02/05/2016 11:26 AM EST Oxygen Saturation 99% 02/05/2016 11:26 AM EST Inhaled Oxygen Concentration - - Weight 117.9 kg (260 lb) 02/03/2016 1:00 PM EST Height 170.2 cm (5' 7.01) 02/03/2016 1:00 PM EST Body Mass Index 40.71 02/03/2016 1:00 PM EST documented in this encounter Discharge Summaries Yady Malik MD - 02/05/2016 7:59 AM EST General Surgery Inpatient - Discharge Summary Patient Name: Seng Muse Patient Age: 40 y.o. Birthdate: 1975 Admit date: 02/03/2016 Discharge date: 02/05/16 Admitting Physician: Mamta Casey MD Primary Diagnosis: Obesity Secondary Diagnosis: Active Hospital Problems Diagnosis ??? Obesity, Class III, BMI 40-49.9 (morbid obesity) Resolved Hospital Problems Diagnosis Date Resolved No resolved problems to display. Active Non-Hospital Problems Diagnosis ??? Osteoarthritis of both knees ??? History of DVT (deep vein thrombosis) left arm ??? Iron deficiency ??? Menorrhagia ??? Preoperative Class III obesity BMI 42, sleeve gastrectomy planned 02/03/16 ??? IBS (irritable bowel syndrome) ? Prediabetes HPI: Ms. Muse is a 40 year old woman with obesity, presenting for bariatric surgery. She has completed the [facility] [place] [place] program and mets criteria for weight loss surgery. She and Dr. Caseyhad a lengthy discussion in the clinic about her operative options. She described that she is takingcelebrex retirement for chronic knee pain, in advance of a knee replacement. In addition to other benefits, a sleeve carries lower risk of developing a marginal ulcer, and she and Dr. Casey agreed to proceed with this operation. Operations/Major Procedures: Operations: 02/03/2016 Surgeon(s) and Role: * Mamta Casey MD - Primary * Sandrine Boggs MD - Fellow: Procedure(s): @LAPAROSCOPY, SURG/GASTRIC RESTRICTIVE PROC, LONGITUDINAL GASTRECTOMY ENDOSCOPY, UPPER GI, DIAGNOSTIC, WITH OR WITHOUT SPECIMENS Operative Findings: The entire gastric staple line was inspected for hemostasis and over-sewn using a running 2-0 Neurolon suture. A gastroscope was used to inspect the stomach. This showed an intact staple line, an intact lumen all the way to the pylorus without excessive narrowing, no intraluminal bleeding, and no bubbles seen while insufflating the stomach and submerging it under saline. Hospital Course: Seng Muse was taken to the operating room where the above procedures were performed. She tolerated the operation well and without complication. She was admitted post-operatively forclinical monitoring and further management. On POD#1 she had post-operative nausea and vomiting, managed with anti-emetics and IVF. By POD#2 she was tolerating PO intake without nausea or vomiting. Herpain was well controlled on PO medication. She was ambulatory and voiding at baseline. Her hospital course was uncomplicated and she was deemed stable for discharge home on POD#2. Important Studies and Lab Data: Discharge Exam: Last value Range last 12 hrs Temperature Temp: 37.2 ??C (99 ??F) Temp: [37.2 ??C (99 ??F)] Heart Rate Heart Rate: 81 Heart Rate: [81-83] Blood Pressure BP: 158/89 BP: (149-158)/(85-98) Respiratory Rate Resp: 16 Resp: [16] SpO2 SpO2: 99 % SpO2: [97 %-99 %] I/Os: I/O last 3 completed shifts: In: 4132.5 [P.O.:220; I.V.:3912.5] Out: 5350 [Urine:5325; Emesis/NG output:25] I/O this shift: In: - Out: 400 [Urine:400] Gen: NAD, alert & oriented x3 Pulm: CTAB Card: Regular Abd: Non-distended, soft, appropriately tender. Wound: lap incisions c/d/i, no erythema or ecchymoses, no draiange Ext: no edema, 2+ peripheral pulses Discharge Plans: Discharge to: Home Discharge Conditions/Prognosis: Stable Discharge Medications: The following medications have been prescribed for you. If you notice any adverse reactions to your medications, please contact your primary care physician immediately or go to the nearest Emergency Department. Your Medications New Medications Dose Details acetaminophen 650 mg/20.3 mL Soln Commonly known as: TYLENOL Take 20.3 mLs by mouth every 4 hours as needed. 650 mg Quantity: 500 mL Refills: 3 enoxaparin 40 mg/0.4 mL Syrg Commonly known as: LOVENOX Inject 0.4 mLs subcutaneously 2 times daily. 40 mg Quantity: 20 Syringe Refills: 0 oxyCODONE 5 mg/5 mL Soln Commonly known as: ROXICODONE Take 5 mLs by mouth every 4 hours as needed for Pain. 5 mg Quantity: 150 mL Refills: 0 polyethylene glycol 17 gram Pwpk Commonly known as: MIRALAX Take 17 g by mouth daily as needed. 17 g Quantity: 14 each Refills: 0 Continued medications, unchanged Dose Details CeleBREX 200 mg Cap Take 200 mg by mouth 2 times daily. Generic drug: celecoxib 200 mg Refills: 0 ferrous sulfate 325 mg (65 mg iron) Tab Take 325 mg by mouth daily. 325 mg Refills: 0 metFORMIN 500 mg Tab Commonly known as: GLUCOPHAGE Take 500 mg by mouth 2 times daily (with meals). Unsure of dose 500 mg Refills: 0 multivitamin Tab Commonly known as: THERAGRAN Take 1 tablet by mouth daily. 1 tablet Refills: 0 omeprazole 20 mg Cpdr Commonly known as: PriLOSEC Take 1 capsule by mouth daily for 180 days. Start at discharge to prevent ulcer. Take 30 minutes before breakfast 20 mg Quantity: 90 capsule Refills: 1 ursodiol 300 mg Cap Commonly known as: ACTIGALL Take 1 capsule by mouth 2 times daily for 180 days. Start at 2 weeks post op on 02/16. Take until 08/15/16 to prevent gallstones. Start taking on: 02/17/2016 300 mg Quantity: 180 tablet Refills: 1 vitamin C 500 mg Tab Take 500 mg by mouth. Generic drug: ascorbic acid (vitamin C) 500 mg Refills: 0 STOPPED Medications IMODIUM A-D ORAL oxyCODONE-acetaminophen 5-325 mg Tab Commonly known as: PERCOCET Updated Allergies/ADRs: Allergies Allergen Reactions ??? Pineapple Hives Raw pineapple causes mouth hives ??? Vicodin [Hydrocodone-Acetaminophen] Hives fevers Scheduled Appointments: Future Appointments Date Time Provider Department Center 02/25/2016 3:30 PM Mamta Casey MD [facility] 05/12/2016 1:00 PM Alyse Cannon APRN [facility] Outpatient Services/Studies: No discharge procedures on file. Instructions Given to Patient at Discharge:. An After Visit Summary was printed and given to the patient. Patient Instructions BARIATRIC SURGERY DISCHARGE INFORMATION CONTACT INFORMATION: [phone] Surgeons: Randy Kwok and Madhu [phone] Finish Cleaner: [phone] (Tuesday through Tuesday, 8:00 AM -5:00 PM) Dietitians: [phone] Non-business hours: [phone], ask for general surgeon suction plate carrier cleaner FOR EMERGENCIES: CALL 911 (trouble breathing, chest pain, severe abdominal pain or rapid heart beat >120 (30 beats in 15 seconds) CALL FOR ANY OF THE FOLLOWING: ??? Signs and symptoms of infection such as: o Redness or swelling o Drainage or bleeding o Fever over 100.5 F o Increased pain or discomfort at the incision site ??? Persistent vomiting or if you are unable to keep food or fluids down in a 24 hour period. ??? Signs and symptoms of a blood clot: new leg swelling or redness, pain in leg, shortness of breath ??? Any concerns, such as problems with urination, bowels, bleeding, pain or leg swelling BATHING AND WOUND CARE: You may shower at 2 days post-op. ??? Wash incisions with soap, water rinse, pat dry and leave open to air if not draining. ??? Steri-strips may be removed or will fall off in 7-10 days. Pat dry if they become wet. ??? Do not soak wound for 2 weeks after laparoscopic surgery and 3 weeks after open surgery. ACTIVITY, LIFTING AND DRIVING: Daily walking is encouraged as tolerated. ??? For laparoscopic surgery: there are no lifting restrictions. Lift when you feel comfortable. ??? For all patients: Do not drive for 2 weeks. After [address] when comfortable and not takingnarcotic pain medicine. DIET: follow Stage II diet for two weeks. ??? Log intake. Daily goals are: 48-64 ounces of fluids and 60 grams of protein. MEDICATIONS: For 2 WEEKS ONLY: LARGE pills (bigger than the size of a calcium pill) must be crushed,or broken into small pieces. ??? Pills smaller than the size of a Tylenol DO NOT need to be crushed. Not all medications can be crushed. Check with your pharmacist first. BLOOD CLOT PREVENTION: ?? You WILL be discharged on enoxaparin injections twice daily for 10 days to prevent blood clots. Be active, walk at least 4 times a day and do blood clot prevention exercises in your handbook on page82. The prescription is sent to [facility] [place] [place] Pharmacy IF YOU ARE TREATED FOR OBSTRUCTIVE SLEEP APNEA: use your CPAP/ BIPAP after surgery at night and whennapping. The effect of anesthesia and pain medication can decrease respirations. Follow up with the Sleep Center if pressure seems to be too high. ULCER PREVENTION: omeprazole 20 mg daily (or any medication you may currently take for heartburn/reflux) must be taken for 3 MONTHS after surgery: Take this to prevent ulcers, even if you do not have heartburn. The prescription may be refilled after the 3 month course if you have heartburn or reflux. ?? Omeprazole capsules contain enteric-coated, delayed-release granules. These granules should not be chewed or crushed. The capsules can be opened and the enteric-coated granules sprinkled on applesauce or yogurt, given with apple juice, or swallowed immediately with water. Prepare just prior to admin istration. Administer entire dosage. ?? If your insurer does not cover omeprazole, or similar medications such as pantoprazole, please purchase over the counter. GALLSTONE PREVENTION: (ONLY if you have a gallbladder): ??? Take Ursodiol (Actigall) 300 mg twice a day. START: 2 weeks after surgery, take for 6 months then stop unless otherwise directed. The start date and end date are written on the prescription. PAIN MEDICATION: Take only if needed -Take the medication exactly as it is prescribed and make sure to read all instructions that come with the medication. -Over the next couple of days you should be requiring less of this medication to control your pain, so that eventually you will not need any at all. You do not have to take all of the medication that was prescribed, you may have some left over. -Use tylenol if you are in pain, and if you are still in pain after tylenol you may use the pain medication -Taking more than the prescribed amount of medication or using with alcohol or other drugs can causeyou to stop breathing resulting in coma, brain damage or . -Opioids can slow reaction time, cause drowsiness or cloud judgement. No driving for 8 hours after any dose of opioid pain medication if one was prescribed for you. -Using this drug may cause addiction. While addiction is more common in people with a personal or family history of addiction, it can occur in anyone. -Opioids are at risk of being diverted by anyone with access to your home. Opioids should be stored in a safe and secure place, such as a locked cabinet or safe. -Unused opioids should be disposed of appropriately. They may be returned to a take-back location, or mixed with a small amount of water and poured over an undesirable waste such as used coffee groundsor cat litter. -Please note that most pain medications can cause constipation. You may use a stool softener such asMiralax to prevent this. MEDICATIONS TO AVOID FOR TWO MONTHS AFTER SURGERY: ??? Avoid anti-inflammatory non-steroidal medications, such as Advil, Aleve, etc. Refer to Medications that may increase the risk of bleeding in handbook. ??? If you take aspirin for your heart or to prevent strokes, continue as prescribed. PATIENTS WITH DIABETES: Check blood sugars four times a day, fasting, 2 hours after meals and if unwell. For blood sugar less than 150, do not restart diabetes medications. ??? If you see the diabetes team during your hospital stay, follow their diabetes care recommendations ??? Patients on oral diabetic medication: If blood sugar is over 200 on more than 3 rechecks, call your primary care physician or diabetic specialist for specific recommendations, or as recommended at discharge. ??? For patients on insulin and oral diabetic medications: If blood sugar is consistently under 200,you will not likely need medication. If blood sugar is over 200 on a few rechecks, call your primarycare doctor or diabetic specialist for specific recommendations or as recommended at discharge. ??? Follow up with primary care provider or rating specialist in 1-2 weeks. Bring meter to appointments. PATIENTS WITH HIGH BLOOD PRESSURE: Monitor your blood pressure regularly. ??? If you feel dizzy and have been drinking 48-64 ounces of fluid, have your blood pressure checked. ??? If your blood pressure is low, call your primary care provider. Keep a log to bring to your PCP appointments. PATIENTS WHO TAKE DIURETICS (MEDICATION FOR SWELLING WATER PILLS): ??? Check with your surgical team prior to discharge for instructions. In general, this medication can be decreased or stopped after surgery, since it may cause dehydration. ??? Monitor closely for increased swelling after discharge, and call your primary care doctor if swelling increases. PATIENTS ON ANTI-DEPRESSANT OR MENTAL HEALTH MEDICATIONS: Do not stop or decrease your medications unless advised. Ongoing counseling is encouraged. VITAMIN AND MINERAL SUPPLEMENTATION: Vitamin B12 500 mcg pill daily. Complete multivitamin w/ minerals Chewable, one pill twice daily. After 2 weeks may take regular vitamin pills. Calcium Calcium citrate 600 mg with vitamin D 400 units twice a day between meals. Iron with vitamin C Take iron as instructed per Handbook- (only if you have anemia, iron deficiency or regular menses) FOLLOW-UP CARE: ??? See your PCP 10-14 days after surgery for wound and vital signs check. ??? See your surgeon and dietitian at 3 weeks after surgery ??? See the dietitian and nurse practitioner at 4, 12, 18, and 24 months, then yearly for life. WOMEN OF CHILDBEARING AGE: Fertility may increase with weight loss. Avoid for 18-24 months after surgery. Condoms alone are not acceptable as a form of control. Do not take control pills for the first monthafter surgery. General Instructions None CC: Soraya Lovett MD Signed: YADY MALIK MD [facility] Service Service pager [phone] 02/05/2016 documented in this encounter Discharge Instructions Patient InstructionsYady Malik MD - 02/05/2016 7:59 AM EST BARIATRIC SURGERY DISCHARGE INFORMATION CONTACT INFORMATION: [phone] Surgeons: Randy Kwok and Madhu [phone] Finish Cleaner: [phone] (Tuesday through Tuesday, 8:00 AM -5:00 PM) Dietitians: [phone] Non-business hours: [phone], ask for general surgeon suction plate carrier cleaner FOR EMERGENCIES: CALL 911 (trouble breathing, chest pain, severe abdominal pain or rapid heart beat >120 (30 beats in 15 seconds) CALL FOR ANY OF THE FOLLOWING: ??? Signs and symptoms of infection such as: o Redness or swelling o Drainage or bleeding o Fever over 100.5 F o Increased pain or discomfort at the incision site ??? Persistent vomiting or if you are unable to keep food or fluids down in a 24 hour period. ??? Signs and symptoms of a blood clot: new leg swelling or redness, pain in leg, shortness of breath ??? Any concerns, such as problems with urination, bowels, bleeding, pain or leg swelling BATHING AND WOUND CARE: You may shower at 2 days post-op. ??? Wash incisions with soap, water rinse, pat dry and leave open to air if not draining. ??? Steri-strips may be removed or will fall off in 7-10 days. Pat dry if they become wet. ??? Do not soak wound for 2 weeks after laparoscopic surgery and 3 weeks after open surgery. ACTIVITY, LIFTING AND DRIVING: Daily walking is encouraged as tolerated. ??? For laparoscopic surgery: there are no lifting restrictions. Lift when you feel comfortable. ??? For all patients: Do not drive for 2 weeks. After [address] when comfortable and not takingnarcotic pain medicine. DIET: follow Stage II diet for two weeks. ??? Log intake. Daily goals are: 48-64 ounces of fluids and 60 grams of protein. MEDICATIONS: For 2 WEEKS ONLY: LARGE pills (bigger than the size of a calcium pill) must be crushed,or broken into small pieces. ??? Pills smaller than the size of a Tylenol DO NOT need to be crushed. Not all medications can be crushed. Check with your pharmacist first. BLOOD CLOT PREVENTION: ?? You WILL be discharged on enoxaparin injections twice daily for 10 days to prevent blood clots. Be active, walk at least 4 times a day and do blood clot prevention exercises in your handbook on page82. The prescription is sent to [facility] [place] [place] Pharmacy IF YOU ARE TREATED FOR OBSTRUCTIVE SLEEP APNEA: use your CPAP/ BIPAP after surgery at night and whennapping. The effect of anesthesia and pain medication can decrease respirations. Follow up with the Sleep Center if pressure seems to be too high. ULCER PREVENTION: omeprazole 20 mg daily (or any medication you may currently take for heartburn/reflux) must be taken for 3 MONTHS after surgery: Take this to prevent ulcers, even if you do not have heartburn. The prescription may be refilled after the 3 month course if you have heartburn or reflux. ?? Omeprazole capsules contain enteric-coated, delayed-release granules. These granules should not be chewed or crushed. The capsules can be opened and the enteric-coated granules sprinkled on applesauce or yogurt, given with apple juice, or swallowed immediately with water. Prepare just prior to admin istration. Administer entire dosage. ?? If your insurer does not cover omeprazole, or similar medications such as pantoprazole, please purchase over the counter. GALLSTONE PREVENTION: (ONLY if you have a gallbladder): ??? Take Ursodiol (Actigall) 300 mg twice a day. START: 2 weeks after surgery, take for 6 months then stop unless otherwise directed. The start date and end date are written on the prescription. PAIN MEDICATION: Take only if needed -Take the medication exactly as it is prescribed and make sure to read all instructions that come with the medication. -Over the next couple of days you should be requiring less of this medication to control your pain, so that eventually you will not need any at all. You do not have to take all of the medication that was prescribed, you may have some left over. -Use tylenol if you are in pain, and if you are still in pain after tylenol you may use the pain medication -Taking more than the prescribed amount of medication or using with alcohol or other drugs can causeyou to stop breathing resulting in coma, brain damage or . -Opioids can slow reaction time, cause drowsiness or cloud judgement. No driving for 8 hours after any dose of opioid pain medication if one was prescribed for you. -Using this drug may cause addiction. While addiction is more common in people with a personal or family history of addiction, it can occur in anyone. -Opioids are at risk of being diverted by anyone with access to your home. Opioids should be stored in a safe and secure place, such as a locked cabinet or safe. -Unused opioids should be disposed of appropriately. They may be returned to a take-back location, or mixed with a small amount of water and poured over an undesirable waste such as used coffee groundsor cat litter. -Please note that most pain medications can cause constipation. You may use a stool softener such asMiralax to prevent this. MEDICATIONS TO AVOID FOR TWO MONTHS AFTER SURGERY: ??? Avoid anti-inflammatory non-steroidal medications, such as Advil, Aleve, etc. Refer to Medications that may increase the risk of bleeding in handbook. ??? If you take aspirin for your heart or to prevent strokes, continue as prescribed. PATIENTS WITH DIABETES: Check blood sugars four times a day, fasting, 2 hours after meals and if unwell. For blood sugar less than 150, do not restart diabetes medications. ??? If you see the diabetes team during your hospital stay, follow their diabetes care recommendations ??? Patients on oral diabetic medication: If blood sugar is over 200 on more than 3 rechecks, call your primary care physician or diabetic specialist for specific recommendations, or as recommended at discharge. ??? For patients on insulin and oral diabetic medications: If blood sugar is consistently under 200,you will not likely need medication. If blood sugar is over 200 on a few rechecks, call your primarycare doctor or diabetic specialist for specific recommendations or as recommended at discharge. ??? Follow up with primary care provider or rating specialist in 1-2 weeks. Bring meter to appointments. PATIENTS WITH HIGH BLOOD PRESSURE: Monitor your blood pressure regularly. ??? If you feel dizzy and have been drinking 48-64 ounces of fluid, have your blood pressure checked. ??? If your blood pressure is low, call your primary care provider. Keep a log to bring to your PCP appointments. PATIENTS WHO TAKE DIURETICS (MEDICATION FOR SWELLING WATER PILLS): ??? Check with your surgical team prior to discharge for instructions. In general, this medication can be decreased or stopped after surgery, since it may cause dehydration. ??? Monitor closely for increased swelling after discharge, and call your primary care doctor if swelling increases. PATIENTS ON ANTI-DEPRESSANT OR MENTAL HEALTH MEDICATIONS: Do not stop or decrease your medications unless advised. Ongoing counseling is encouraged. VITAMIN AND MINERAL SUPPLEMENTATION: Vitamin B12 500 mcg pill daily. Complete multivitamin w/ minerals Chewable, one pill twice daily. After 2 weeks may take regular vitamin pills. Calcium Calcium citrate 600 mg with vitamin D 400 units twice a day between meals. Iron with vitamin C Take iron as instructed per Handbook- (only if you have anemia, iron deficiency or regular menses) FOLLOW-UP CARE: ??? See your PCP 10-14 days after surgery for wound and vital signs check. ??? See your surgeon and dietitian at 3 weeks after surgery ??? See the dietitian and nurse practitioner at 4, 12, 18, and 24 months, then yearly for life. WOMEN OF CHILDBEARING AGE: Fertility may increase with weight loss. Avoid for 18-24 months after surgery. Condoms alone are not acceptable as a form of control. Do not take control pills for the first monthafter surgery. documented in this encounter Medications at Time of Discharge Medication Sig Dispensed Refills Start Date End Date ferrous sulfate 325 mg Take 325 mg by mouth 0 (65 mg iron) Tablet daily. ascorbic acid, vitamin Take 500 mg by mouth. 0 C, (VITAMIN C) 500 mg Tablet celecoxib (CELEBREX) Take 200 mg by mouth 2 0 200 mg Capsule times daily. multivitamin Take 1 tablet by mouth 0 (THERAGRAN) Tablet 2 times daily. acetaminophen Take 20.3 mLs by mouth 500 mL 3 02/05/2016 07/14/2016 (TYLENOL) 650 mg/20.3 every 4 hours as mL Solution needed. polyethylene glycol Take 17 g by mouth 14 each 0 02/05/20 16 07/14/2016 (MIRALAX) 17 gram daily as needed. Powder in Packet enoxaparin (LOVENOX) Inject 0.4 mLs 20 Syringe 0 02/03/2016 02/25/2016 40 mg/0.4 mL Syringe subcutaneously 2 times daily. oxyCODONE (ROXICODONE) Take 5 mLs by mouth 150 mL 0 01/1307/14/2016 5 mg/5 mL Solution every 4 hours as needed for Pain. omeprazole (PRILOSEC) Take 1 capsule by 90 capsule 1 016 08/02/2016 20 mg Capsule, Delayed mouth daily for 180 Release(E.C.) days. Start at discharge to prevent ulcer. Take 30 minutes before breakfast ursodiol (ACTIGALL) Take 1 capsule by 180 tablet 1 6 05/21/2016 300 mg Capsule mouth 2 times daily for 180 days. Start at 2 weeks post op on 02/16. Take until 08/15/16 to prevent gallstones. metFORMIN (GLUCOPHAGE) Take 500 mg by mouth 2 0 02/25/2016 500 mg Tablet times daily (with meals). Unsure of dose documented as of this encounter Progress Notes Ewa Pham RN - 02/05/2016 3:51 PM EST Seng left unit with . AVS reviewed with patient, hard copy provided. Questions answered. Prescriptions given to patient. Denied need for services at this time. Ambrose, Sandrine Fernandes MD - 02/04/2016 12:29 PM EST RESIDENT INPATIENT PROGRESS NOTE ID: Seng Muse is a 40 y.o. female s/p Lap Gastric Sleeve, POD#1 24hr events: ?? Nausea, emesis x1 ?? Hypertensive 160s systolic Subjective: no complaints this AM, denies n/v/cp/sob O: Temp: [36.9 ??C (98.4 ??F)-37.3 ??C (99.1 ??F)] Heart Rate: -- Resp: [16-20] BP: (136-179)/(89-106) SpO2: [94 %-99 %] Heart Rate from SPO2: [76 bpm-94 bpm] I/O last 3 completed shifts: In: 3668.2 [I.V.:3667.8; IV Piggyback:0.4] Out: 2365 [Urine:2325; Emesis/NG output:25; Blood:15] Physical Exam: General: NAD, resting comfortably, pleasant, conversant HEENT: PERRL, anicteric sclerae CVS: RRR Pulm: CTAB Abd: soft, nontender, nondistended Skin: warm, dry Ext: no c/c/e, cap refill <2sec Neuro: CN 2-12 grossly intact, nonfocal,moving all four extremities spontaneously Recent Labs 02/04/16 0545 WBC 11.3* HGB 12.0 PLATELET 256 Electrolytes Lab Results Component Value Date POTASSIUM 3.7 02/04/2016 CO2 24 02/04/2016 Recent Labs 02/04/16 0545 BUN 8 Lab Results Component Value Date CREATININE 0.68 (L) 02/04/2016 NEW IMAGING: ?? none ASSESSMENT: Seng Muse is a 40 y.o. female with morbid obesity, on chronic NSAIDs for knee pain, s/p lap sleeve gastrectomy yesterday. Experiencing PONV, mild overnight. PLAN: - PO analgesics, with IV tylenol adjunct - dc IVF, advance diet per Bariatric surgery protocol - Compazine, Phenergan as needed - Obtain RX LOVENOX from oupatient pharmacy today as it is closed tomorrow Yady Malik MD - 02/03/2016 1:36 PM EST POST-OPERATIVE ASSESSMENT Patient Name: Seng Muse Patient Age: 40 y.o. Attending Physician: Mamta Casey MD Seng Muse is a 40 y.o. female s/p lap sleeve gastrectomy. Procedure(s): @LAPAROSCOPY, SURG/GASTRIC RESTRICTIVE PROC, LONGITUDINAL GASTRECTOMY ENDOSCOPY, UPPER GI, DIAGNOSTIC, WITH OR WITHOUT SPECIMENS S: Tolerated procedure without complication. No nausea/vomiting. Pain well controlled; does endorse some back pain. Denies CP/SOB. Had some nausea in PACU, now resolved. Has ambulated to the bathroom. O: Temp: [36 ??C (96.8 ??F)-36.6 ??C (97.9 ??F)] Heart Rate: [63-77] Resp: [8-20] BP: (113-152)/(66-98) SpO2: [94 %-100 %] RA Heart Rate from SPO2: [63 bpm-79 bpm] BIB=182xi Physical Exam Gen: NAD, resting comfortably CVS: Regular Resp: Breathing comfortably on RA Abd: soft, nontender, non-distended; lap incision sites c/d/i without erythema or drainage Ext: SCDs in place, pulses present and equal in all four extremities A/P: Seng Muse is a 40 y.o. female s/p above procedures, currently in stable condition and recovering well following surgery. - Appropriate for the floor - HDS - Pain well controlled with dPCA - NPO overnight; stage I clears in morning - Pulm toilet, IS, OOB tonight Yady Malik MD PGY 2 General Surgery MIS [id number] Deven Green RN - 02/03/2016 12:59 PM EST Patient received from the PACU to [facility] with some nausea, but no vomitting, using the Dilaudid BOILER ERECTOR for pain relief, IV is patent, skin is intact. Abdon Galvez RN - 02/03/2016 10:26 AM EST 1035- Pt to PACU and placed on monitor. Alarms noted and appropriate for pt. Admission assessment ongoing. See PACU Phase I flowsheet. 11:55- Pt requests not to have visitor in PACU at this time. Pts skin assessment negative. documented in this encounter H&P Notes Sandrine Boggs MD - 02/03/2016 7:19 AM EST [facility] Department of General Surgery Interval History and Physical Please see clinic H&P dated 01/23/2016. In summary, Seng Muse presents today for lap sleeve gastrectomy. There have been no changes to her history. Vitals: 02/03/16 0610 BP: 137/74 Pulse: 72 Resp: 16 Temp: 36.5 ??C (97.7 ??F) On examination, she appears well and in no distress. Head and neck exam reveals equal, reactive pupils and a supple neck. Her chest is clear bilaterally and her heart sounds are normal with no adventitious sounds or murmurs. Her abdomen is soft with no masses or tenderness. Extremity and Neuro exams are grossly normal. A/P: 40 y.o. female who presents today with morbid obesity. Plan for lap sleeve gastrectomy. Consent signed and dated and placed in chart Perioperative antibiotic scheduled. Ok to proceed with scheduled operation. Sandrine Boggs MD 02/03/2016 documented in this encounter Miscellaneous Notes Plan of Care - Gail Harvey RN - 02/05/2016 3:52 AM EST Problem: Patient Care Overview Goal: Plan of Care Review Outcome: Ongoing (Interventions Implemented as Appropriate) 02/04/16 0326 02/04/162028 Coping/Psychosocial Plan Of Care Reviewed With -- patient Plan of Care Review Progress progress toward functional goals as expected -- OUTCOME EVALUATION NOTE: OUTCOME SUMMARY: Seng had a good night, pain was controlled with oxycodone. Seng also had compazine for nausea twice,no emesis. Seng was given hydralazine for a SBP of >140, recheck was >150 but at the time patient was in pain and nauseated. Per MD recheck after pain medication and compazine. BP recheck was within parameters. Patient rested between care and ambulating to the bathroom. Will continue to monitor. PLAN MOVING FORWARD: Monitor intake and output. Encourage more PO intake and increase in ambulation. INDIVIDUALIZED FALL PREVENTION INTERVENTIONS: Patient-specific fall risk factors per assessment: [current deficits]: Narcotics, lines/drains and needs assistance getting out of bed/chair. Assistance [level of assistance required for transfers and ambulation]: Standby assist, iv pole and nonskid slippers. Supervision [direct monitoring required during toileting and ADLs]: Up to bathroom, standby assist. Surveillance [continuous indirect monitoring]: Purposeful rounding and call light in reach. Patient-specific fall prevention interventions for sensory deficits provided, if applicable: Yes, light adjusted for task/safety CPG GOAL OUTCOME EVALUATION: Goal: Individualization & Mutuality Outcome: Ongoing (Interventions Implemented as Appropriate) 02/03/16 1400 02/04/16 1453 Individualization Patient Specific Preferences -- Pillow under knees Mutuality/Individual Preferences What Anxieties, Fears or Concerns Do You Have About Your Health or Care? none -- What Questions Do You Have About Your Health or Care? none -- What Information Would Help Us Give You More Personalized Care? Keep info current. -- Goal: Fall Prevention-Safe Patient Handling Outcome: Ongoing (Interventions Implemented as Appropriate) 02/03/16 1100 02/04/162028 Martínez Fall Risk History of Falling -- 0 Secondary Diagnosis -- 15 Ambulatory Aids -- 0 Intravenous Therapy/Heparin/Saline Lock -- 20 Gait/Transferring -- 0 Mental Status -- 0 Score -- 35 Activity and Safety Assistive Device None -- OTHER Martínez Fall Risk -- Med Restraint Interventions Safety Promotion/Fall Prevention -- activity supervised;nonskid shoes/slippers when out of bed;safety round/check completed Positioning Body Position -- independent Goal: Infection Control Outcome: Ongoing (Interventions Implemented as Appropriate) 02/04/162028 Safety Interventions Isolation Precautions standard precautions maintained Infection Prevention personal protective equipment utilized;rest/sleep promoted Coping Strategies Supportive Measures active listening utilized;self-care encouraged Goal: Discharge Needs Assessment Outcome: Ongoing (Interventions Implemented as Appropriate) 02/03/16 1400 02/04/16 0326 Discharge Needs Assessment Concerns To Be Addressed -- no discharge needs identified Equipment Needed After Discharge -- none Current Health Anticipated Changes Related to Illness -- none Activity/Self Care Review of Systems Equipment Currently Used at Home -- none Living Environment Transportation Available car;family or friend will provide -- Goal: Interdisciplinary Rounds/Family Conf Outcome: Ongoing (Interventions Implemented as Appropriate) 02/04/16 0326 Interdisciplinary Rounds/Family Conf Participants nursing;patient;physician Problem: Bariatric Surgery (Adult,Pediatric) Goal: Signs and Symptoms of Listed Potential Problems Will be Absent, Minimized or Managed (Bariatric Surgery) Signs and symptoms of listed potential problems will be absent, minimized or managed by discharge/transition of care (reference Bariatric Surgery (Adult,Pediatric) CPG). Outcome: Ongoing (Interventions Implemented as Appropriate) 02/04/162028 Bariatric Surgery Problems Assessed (Bariatric Surgery) all Problems Present (Bariatric Surgery) nausea and vomiting;pain Plan of Care - Laura Moody RN - 02/04/2016 2:58 PM EST Problem: Patient Care Overview Goal: Plan of Care Review Outcome: Ongoing (Interventions Implemented as Appropriate) 02/04/16 0326 02/04/16 0855 Coping/Psychosocial Plan Of Care Reviewed With -- patient Plan of Care Review Progress progress toward functional goals as expected -- OUTCOME EVALUATION NOTE: OUTCOME SUMMARY: Patient slept off and on throughout the day. When attempting to take oxycodone PO patient experienced nausea and vomiting. Compazine PRN relieved symptoms and make patient drowsy. Patient was able to ambulate with 1 assist to the bathroom frequently during the day and only reported an increase in painwhen changing position. Patient refused to be up in chair after nausea occurred, RN will continue toencourage to be up in chair and to ambulate. BP elevated, per labetalol PRN ordered. RN picked up prescriptions for patient at outpatient pharmacy, left with patient's belongings. PLAN MOVING FORWARD: Patient to be discharged tomorrow morning per care team. Continue to assess for and manage nausea and pain levels. Encourage patient to ambulate out of room. INDIVIDUALIZED FALL PREVENTION INTERVENTIONS: Patient-specific fall risk factors per assessment: [current deficits]: Narcotics, Needs assistance getting out of bed or chair, pain with movement/ambulation. Assistance [level of assistance required for transfers and ambulation]: IV pole, non-skid shoes/slippers, 1 person assist. Supervision [direct monitoring required during toileting and ADLs]: Arms reach. Surveillance [continuous indirect monitoring]: Purposeful rounding, call wells in reach. Patient-specific fall prevention interventions for sensory deficits provided, if applicable: [X] Yes Light adjusted for task/safety. CPG GOAL OUTCOME EVALUATION: Goal: Individualization & Mutuality Outcome: Ongoing (Interventions Implemented as Appropriate) 02/04/16 1453 Individualization Patient Specific Preferences Pillow under knees Goal: Fall Prevention-Safe Patient Handling Outcome: Ongoing (Interventions Implemented as Appropriate) 02/03/16 1100 02/04/16 0855 Martínez Fall Risk History of Falling -- 0 Secondary Diagnosis -- 15 Ambulatory Aids -- 0 Intravenous Therapy/Heparin/Saline Lock -- 20 Gait/Transferring -- 0 Mental Status -- 0 Score -- 35 Activity and Safety Assistive Device None -- OTHER Martínez Fall Risk -- Med Restraint Interventions Safety Promotion/Fall Prevention -- activity supervised;fall prevention program maintained;nonskid shoes/slippers when out of bed Positioning Body Position -- independent Goal: Infection Control Outcome: Ongoing (Interventions Implemented as Appropriate) 02/04/16 0855 Safety Interventions Isolation Precautions standard precautions maintained Infection Prevention rest/sleep promoted Coping Strategies Supportive Measures self-care encouraged Goal: Discharge Needs Assessment Outcome: Ongoing (Interventions Implemented as Appropriate) 02/03/16 1400 02/04/16 0326 Discharge Needs Assessment Concerns To Be Addressed -- no discharge needs identified Equipment Needed After Discharge -- none Current Health Anticipated Changes Related to Illness -- none Activity/Self Care Review of Systems Equipment Currently Used at Home -- none Living Environment Transportation Available car;family or friend will provide -- Goal: Interdisciplinary Rounds/Family Conf Outcome: Ongoing (Interventions Implemented as Appropriate) 02/04/166 Interdisciplinary Rounds/Family Conf Participants nursing;patient;physician Initial Assessments - Soraya Bruno RN - 02/04/2016 8:08 AM EST Office of Care Management Initial Assessment Soraya Bruno RN reviewed record and discussed patient with Care Team. Source of Information: Chart review, MD report, & patient interview. Introduced self/reviewed role; services accepted. Reason for Hospitalization: 40 y.o. Woman who had laparoscopic sleeve gastrectomy on 02/03/16. No past medical history on file. Hospitalizations Within the Past 30 Days: No Anticipated Length Of Stay (If known): 2-3 days Current Decision-Making Capacity: Patient alert, oriented, & able to make own choices. Advance Care Planning: Not found in chart Current Coping/Education/Information Needs: Patient verbalized understanding of treatment to date & plan for limited diet with gradual increase. Current Functional Ability: Independent Functional Status Prior to Admission: Independent Home Environment: 3 steps into single level home. Social & Family Supports/Community Resources: Lives with boyfriend. Behavioral Health History: Denies any Substance Use/Abuse: No Other Pertinent/Service Specific Information: N/A Health/Prescription Coverage: Primary Insurance: [facility] Secondary Insurance: None listed Prescription Coverage: BCBS Preferred Pharmacy: [facility] in [place], [place] Other: N/A Primary Care Provider: Soraya Lovett MD [phone] Patient/Caregiver Goals of Treatment: Discharge home with dietary instructions. Potential Needs for Transition of Care: Rehab/SNF: No Home Health: No DME: No Dialysis: No Community Resources: No Transportation: Personal car with boyfriend Other: N/A Anticipated Barriers to Discharge/Special Considerations: No barriers anticipated. Plan: CM will maintain contact with patient & providers to coordinate any services needed for discharge. Soraya Bruno RN Pager: [phone] Plan of Care - Brett Barragan RN - 02/04/2016 3:58 AM EST Problem: Patient Care Overview Goal: Plan of Care Review Outcome: Ongoing (Interventions Implemented as Appropriate) 02/04/16 0326 Coping/Psychosocial Plan Of Care Reviewed With patient Plan of Care Review Progress progress toward functional goals as expected OUTCOME EVALUATION NOTE: OUTCOME SUMMARY: Seng had a good night, sleeping between care. Pain managed with BOILER ERECTOR. Voiding adequately. BP has beenelevated - MD Real made aware and PRN med added. PLAN MOVING FORWARD: Diet advance at 0500 today. Promote activity. Pain control. INDIVIDUALIZED FALL PREVENTION INTERVENTIONS: Patient-specific fall risk factors per assessment: [current deficits]: Pain, narcotics, IV tubing Assistance [level of assistance required for transfers and ambulation]: Standby Supervision [direct monitoring required during toileting and ADLs]: Standby Surveillance [continuous indirect monitoring]: Masimo, purposeful rounding, call wells in reach Patient-specific fall prevention interventions for sensory deficits provided, if applicable: [X] No CPG GOAL OUTCOME EVALUATION: Goal: Individualization & Mutuality Outcome: Ongoing (Interventions Implemented as Appropriate) 02/03/16 1400 Mutuality/Individual Preferences What Anxieties, Fears or Concerns Do You Have About Your Health or Care? none What Questions Do You Have About Your Health or Care? none What Information Would Help Us Give You More Personalized Care? Keep info current. Goal: Fall Prevention-Safe Patient Handling Outcome: Ongoing (Interventions Implemented as Appropriate) 02/03/16 1100 02/03/162021 Martínez Fall Risk History of Falling -- 0 Secondary Diagnosis -- 15 Ambulatory Aids -- 0 Intravenous Therapy/Heparin/Saline Lock -- 20 Gait/Transferring -- 0 Mental Status -- 0 Score -- 35 Activity and Safety Assistive Device None -- OTHER Martínez Fall Risk -- Med Restraint Interventions Safety Promotion/Fall Prevention -- fall prevention program maintained;nonskid shoes/slippers when out of bed;safety round/check completed Positioning Body Position -- independent Goal: Infection Control Outcome: Ongoing (Interventions Implemented as Appropriate) 02/03/162021 Safety Interventions Isolation Precautions standard precautions maintained Infection Prevention rest/sleep promoted Coping Strategies Supportive Measures active listening utilized Goal: Discharge Needs Assessment Outcome: Ongoing (Interventions Implemented as Appropriate) 02/04/16 0326 Discharge Needs Assessment Concerns To Be Addressed no discharge needs identified Equipment Needed After Discharge none Current Health Anticipated Changes Related to Illness none Activity/Self Care Review of Systems Equipment Currently Used at Home none Goal: Interdisciplinary Rounds/Family Conf Outcome: Ongoing (Interventions Implemented as Appropriate) 02/04/166 Interdisciplinary Rounds/Family Conf Participants nursing;patient;physician Plan of Care - Deven Green RN - 02/03/2016 2:50 PM EST Problem: Patient Care Overview Goal: Plan of Care Review OUTCOME EVALUATION NOTE: OUTCOME SUMMARY: Dilaudid BOILER ERECTOR for pain control, with relief. PLAN MOVING FORWARD: NPO today, and Stage 1 diet tomorrow. INDIVIDUALIZED FALL PREVENTION INTERVENTIONS: Patient-specific fall risk factors per assessment: [current deficits]: Eyes on and arms length. Assistance [level of assistance required for transfers and ambulation]: Standby assist. Supervision [direct monitoring required during toileting and ADLs]: All activities. Surveillance [continuous indirect monitoring]: Purposeful hourly rounding. Patient-specific fall prevention interventions for sensory deficits provided, if applicable: [X] Yes CPG GOAL OUTCOME EVALUATION: Goal: Individualization & Mutuality Outcome: Ongoing (Interventions Implemented as Appropriate) Keep team plan of care info current. Goal: Fall Prevention-Safe Patient Handling Outcome: Ongoing (Interventions Implemented as Appropriate) 02/03/16 1100 02/03/16 1300 Martínez Fall Risk History of Falling -- 0 Secondary Diagnosis -- 15 Ambulatory Aids -- 0 Intravenous Therapy/Heparin/Saline Lock -- 20 Gait/Transferring -- 0 Mental Status -- 0 Score -- 35 Activity and Safety Assistive Device None -- OTHER Martínez Fall Risk -- Med Standby assist. Goal: Infection Control Outcome: Ongoing (Interventions Implemented as Appropriate) Good hand hygiene. Goal: Discharge Needs Assessment Outcome: Ongoing (Interventions Implemented as Appropriate) Family will be available at time of dc. Goal: Interdisciplinary Rounds/Family Conf Outcome: Ongoing (Interventions Implemented as Appropriate) Purposeful hourly rounding. Op Note - Mamta Casey MD - 02/03/2016 10:21 AM EST [facility] – [place] Operative Note Patient Name: Seng Muse : [id number] MR#: [id number] Case Date: 02/03/2016 Surgeon: Surgeon(s) and Role: * Mamta Casey MD - Primary * Sandrine Boggs MD - Fellow Preoperative diagnosis: MORBID OBESITY Postoperative diagnosis: MORBID OBESITY Procedure(s): @LAPAROSCOPY, SURG/GASTRIC RESTRICTIVE PROC, LONGITUDINAL GASTRECTOMY ENDOSCOPY, UPPER GI, DIAGNOSTIC, WITH OR WITHOUT SPECIMENS HPI/Surgical Indications: The patient is a 40 y.o. morbidly obese female with a history of previous unsuccessful long-term weight-loss efforts, who was seen and evaluated in our bariatric program and was found to be a suitable candidate for bariatric surgery. The patient participated in the bariatric program and underwent several discussions regarding the risks and benefits of weight loss surgery. The patient was informed and acknowledged that the risks of the procedure included but were not limitedto bleeding, infection, deep vein thrombosis, pulmonary embolism, cardiopulmonary complications, staple-line leaks, bowel/splenic injury, stricturing, ulceration, potential for increased acid reflux, nausea and vomiting, obstruction, inadequate weight loss or weight regain, and other potential complications as outlined in the bariatric program manual, including . The patient agreed to proceed after having their questions answered and signing an informed consent document. Procedure Description: The patient was identified in the holding and their consent for surgery was verified. The patient received low-molecular weight heparin subcutaneously in the preoperative holdingarea for DVT prophylaxis. The patient received antibiotics within one hour prior to the skin incision for prophylaxis. The patient was transported to the operating room and placed supine on the operating room table with the arms tucked. Sequential compression devices were placed. General anesthesia was induced by the anesthesia service and a arce catheter and orogastric tubes were placed in usual fashion. The patient's feet were positioned on foot-boards, and the arms were tucked with care to pad any pressure points. The abdomen was prepped and draped in usual sterile fashion. A time-out procedurewas performed. A 10mm incision was made in the left paramedian position approximately 15cm caudad tothe xiphoid. An 11mm Optiview trocar was used to safely gain access into the peritoneal cavity. The a bdomen was insufflated with carbon dioxide and a 10mm laparoscope was used to inspect the abdomen which revealed no signs of injury. Findings were as described above. A self-retaining liver retractor was then placed through a 5mm trocar in the subxiphoid position. Two 5mm ports were placed in the leftabdomen for the traffic assistant. Two ports (5mm and 12mm) were placed in the right upper quadrant for the surgeon's instruments. The greater omentum was then incised using a harmonic scalpel and the greater curvature of the stomach was fully mobilized beginning at a point approximately 6cm from the pylorus up to the angle of His. The posterior gastric attachments were cleared with care to preserve the lesser curve vasculature. The sleeve gastrectomy was then begun along the greater curve of the stomach 6cm from the pylorus using a green-load stapler. The antrum was preserved with care not to narrow the stomach near the incisura. A 42 [place] bougie was then advanced under laparoscopic guidance to the pylorus. Sequential blue-load stapler firings were then used to resect the greater curve of the stomach all the way to the top of the fundus, with care to prevent narrowing near the angle of His. The entire gastric staple line was inspected for hemostasis and over-sewn using a running 2-0 Neurolon suture.A gastroscope was used to inspect the stomach. This showed an intact staple line, an intact lumen all the way to the pylorus without excessive narrowing, no intraluminal bleeding, and no bubbles seen while insufflating the stomach and submerging it under saline. The 12mm port in the right upper quadrant was removed and the gastric sleeve specimen extracted through that site with no spillage of its contents. The 12mm trocar site was closed with a 0-vicryl suture using the Josafat-Joaquin device. The liver retractor was removed with no evidence of liver injury. The remaining ports were removed with no evidence of trocar site bleeding. The skin incisions were closed using running 4-0 vicryl suture and covered with steri-strips and bandaids. The patient was awakened and transported to the recovery room in stable condition. Dr. Casey was present and scrubbed for the entire procedure. Attestation: Case Date: 02/03/2016 I performed this without a residen No Qualified resident available MAMTA CASEY MD 02/03/2016 documented in this encounter Plan of Treatment Not on filedocumented as of this encounter Procedures Procedure Name Priority Date/Time Associated Comments Diagnosis IMPLANTABLE DEVICES 02/06/2016 12:00 SCAN AM EST DENTAL DETAIL REPRESENTATIVE SCAN 02/06/2016 12:00 AM EST POCT GLUCOSE Routine 02/05/2016 12:02 Results for this PM EST procedure are i n the results section. POCT GLUCOSE Routine 02/05/2016 7:03 AM Results f or this EST procedure are i n the results section. POCT GLUCOSE Routine 02/04/2016 7:55 PM Results f or this EST procedure are i n the results section. POCT GLUCOSE Routine 02/04/2016 4:47 PM Results f or this EST procedure are i n the results section. HEMOGRAM Routine 02/04/2016 5:45 AM Results f or this EST procedure are i n the results section. DIFFERENTIAL, Routine 02/04/2016 5:45 AM Results for this AUTOMATED EST procedure are i n the results section. CBC (WITH DIFF) Routine 02/04/2016 5:45 AM EST PHOSPHORUS Routine 02/04/2016 5:45 AM Results f or this EST procedure are i n the results section. MAGNESIUM Routine 02/04/2016 5:45 AM Results f or this EST procedure are i n the results section. BASIC METABOLIC PANEL Routine 02/04/2016 5:45 AM Results for this (NON-FASTING) EST procedure are in the results section. SPECIMEN TO PATHOLOGY Routine 02/03/2016 9:33 AM Results for this EST procedure are i n the results section. SURGICAL PATHOLOGY Routine 02/03/2016 9:32 AM Res ults for this REPORT EST procedure are i n the results section. ENDOSCOPY, UPPER GI, Yes 02/03/2016 7:35 AM MORBID OBESITY DIAGNOSTIC, WITH OR EST WITHOUT SPECIMENS @LAPAROSCOPY, Yes 02/03/2016 7:35 AM MORBID OBESITY SURG/GASTRIC EST RESTRICTIVE PROC, LONGITUDINAL GASTRECTOMY (WRVU 20.38) POCT GLUCOSE Routine 02/03/2016 6:41 AM Results f or this EST procedure are i n the results section. documented in this encounter Results SCAN DOC: IMPLANTABLE DEVICES (02/06/2016 12:00 AM EST) Narrative This result has an attachment that is no t available. Scanning Provider MEDIA MGR SCAN EXT ORDR/RSLT SCAN DOC: DENTAL DETAIL REPRESENTATIVE (02/06/2016 12:00 AM EST) Narrative This result has an attachment that is no t available. Scanning Provider MEDIA MGR SCAN EXT ORDR/RSLT POCT Glucose (02/05/2016 12:02 PM EST) athologist Signature POC Glucose 80 65 - 199 [facility] mg/dL [facility] Comment: Supplemental ranges: <140 mg/dL before meals <180 mg/dL all other times of the day Specimen Anatomical Collection Method Collection Time Receive d Time (Source) Location / / Volume Laterality Blood specimen 02/05/2016 12:02 6 (specimen) PM EST 12:02 PM EST Mamta Casey MD POINT OF CARE TEST ORDERABLE S Performing Organization Address City/State/[place] [address] POCT Glucose (02/05/2016 7:03 AM EST) athologist Signature POC Glucose 101 65 - 199 [facility] mg/dL [facility] Comment: Supplemental ranges: <140 mg/dL before meals <180 mg/dL all other times of the day Specimen Anatomical Collection Method Collection Time Receive d Time (Source) Location / / Volume Laterality Blood specimen 02/05/2016 7:03 AM 016 7:03 (specimen) EST AM EST Mamta Casey MD POINT OF CARE TEST ORDERABLE S Performing Organization Address City/State/ZIP Code Phon e Number [address] POCT Glucose (02/04/2016 7:55 PM EST) athologist Signature POC Glucose 86 65 - 199 [facility] Comment: Supplemental ranges: <140 mg/dL before meals <180 mg/dL all other times of the day Specimen Anatomical Collection Method Collection Time Receive d Time (Source) Location / / Volume Laterality Blood specimen 02/04/2016 7:55 PM 016 7:55 (specimen) EST PM EST Mamta Casey MD POINT OF CARE TEST ORDERABLE S Performing Organization Address City/State/ZIP Code Phon e Number [address] POCT Glucose (02/04/2016 4:47 PM EST) athologist Signature POC Glucose 96 65 - 199 [facility] Comment: Supplemental ranges: <140 mg/dL before meals <180 mg/dL all other times of the day Specimen Anatomical Collection Method Collection Time Receive d Time (Source) Location / / Volume Laterality Blood specimen 02/04/2016 4:47 PM 016 4:47 (specimen) EST PM EST Mamta Casey MD POINT OF CARE TEST ORDERABLE S Performing Organization Address City/State/ZIP Code Phon e Number [address] (ABNORMAL) Differential, Automated (02/04/2016 5:45 AM EST) [employer] gist Method Time Signature Neutrophils % 77.7 % [facility] Neutr Abs (ANC) 8.80 (H) 1.70 - [facility] 6.10 [facility] x10(3)/[facility] LABORATORY Lymphocytes % 14.5 % [facility] Lymphocytes Abs 1.6 0.9 - 3.2 [facility] x10(3)/[facility] LABORATORY Monocytes % 6.9 % [facility] Monocyte Abs 0.8 0.3 - 0.9 [facility] x10(3)/[facility] LABORATORY Eosinophils % 0.3 % [facility] Eosinophils Abs 0.0 0.0 - 0.4 [facility] x10(3)/[facility] LABORATORY Basophils % 0.3 % [facility] Basophils Abs 0.0 0.0 - 0.1 [facility] x10(3)/[facility] LABORATORY Immature Gran % 0.30 % [facility] Comment: Immature granulocytes(IG's)percentage an d absolute count will include metamyelocytes, myelocytes, and promyelo cytes. Blood smears from CBCs yielding IG's will be scanned manually for concor dance. If this scan disagrees with the automated IG or if promyelocytes are not ed, a manual differential will be performed. Leida Gran Abs 0.03 0.00 - 0.04 x10(3)/[facility] LABORATORY Specimen Anatomical Collection Method Collection Time Receive d Time (Source) Location / / Volume Laterality Blood specimen 02/04/2016 5:45 AM 016 5:57 (specimen) EST AM EST Resulting Agency Comment Spec In Lab Sandrine Boggs MD HEMATOLOGY ORDERABLES Performing Organization Address City/State/[place] [address] (ABNORMAL) Hemogram (02/04/2016 5:45 AM EST) Analysis Performed At Patho logist Time Signature WBC 11.3 (H) 4.0 - 9.5 [facility] x10(3)/[facility] LABORATORY RBC 4.29 4.00 - [facility] 5.21 [facility] x10(6)/[facility] LABORATORY Hemoglobin 12.0 11.7 - [facility] 15.5 gm/dL [facility] Hematocrit 35.8 35.7 - [facility] 45.8 % [facility] MCV 83.4 82.6 - [facility] 94.4 fL [facility] MCH 28.0 27.1 - [facility] 32.0 pg [facility] MCHC 33.5 31.7 - [facility] SAL[facility] 35.0 gm/dL [facility] Platelets 256 145 - 357 [facility] x10(3)/[facility] LABORATORY RDWSD 40.8 37.0 - [facility] DAMIAN 46.0 [facility] LABORATORY RDWCV 13.3 11.5 - [facility] 14.1 % [facility] MPV 10.3 7.6 - 12.9 [facility] LABORATORY nRBC % Auto 0.0 % [facility] nRBC Abs Auto 0.000 0.000 - [facility] 0.000 [facility] x10(3)/[facility] LABORATORY Specimen Anatomical Collection Method Collection Time Receive d Time (Source) Location / / Volume Laterality Blood specimen 02/04/2016 5:45 AM 016 5:57 (specimen) EST AM EST Resulting Agency Comment Spec In Lab Sandrine Boggs MD HEMATOLOGY ORDERABLES Performing Organization Address City/[facility]/ZIP Code Phon e Number [address] (ABNORMAL) Phosphorus (02/04/2016 5:45 AM EST) P athologist Signature Phosphorus 2.4 (L) 2.5 - 4.5 [facility] mg/dL [facility] Specimen Anatomical Collection Method Collection Time Receive d Time (Source) Location / / Volume Laterality Blood specimen 02/04/2016 5:45 AM 016 5:57 (specimen) EST AM EST Resulting Agency Comment Spec In Lab Sandrine Boggs MD CHEMISTRY ORDERABLES Performing Organization Address City/State/ZIP Code Phon e Number [address] Magnesium (02/04/2016 5:45 AM EST) P athologist Signature Magnesium 0.82 0.69 - 1.07 [facility] mmol/L [facility] Specimen Anatomical Collection Method Collection Time Receive d Time (Source) Location / / Volume Laterality Blood specimen 02/04/2016 5:45 AM 016 5:57 (specimen) EST AM EST Resulting Agency Comment Spec In Lab Sandrine Boggs MD CHEMISTRY ORDERABLES Performing Organization Address City/State/[place] [address] (ABNORMAL) Basic Metabolic Panel (non-fasting) (02/04/2016 5:45 AM EST) P athologist Signature Glucose Lvl 93 65 - 199 [facility] mg/dL [facility] Comment: Diabetes: >=200 mg/dL plus symp toms BUN 8 8 - 18 mg/dL [facility] Creatinine 0.68 (L) 0.70 - 1.20 mg/dL [facility] Comment: Please note that the pediatric reference intervals supplied above were not validated at [facility] [place] [place]. Results from pediatri c patients should be interpreted in conjunction to the patient's age, height and muscle mass. Sodium 138 135 - 145 mmol/L [facility] Potassium 3.7 3.5 - 5.0 mmol/L [facility] Comment: Please note: ??Patients with WBC >100,00 0 may have falsely elevated Potassium levels. ??For accurate Potassium quantif ication in these patients send serum separator tube (gold top) for subsequent determinations. ??Contact the Clinical Chemistry Laboratory if there are any qu estions. Chloride 101 98 - 107 mmol/L [facility] CO2 24 22 - 31 mmol/L [facility] Anion Gap 13 5 - 15 mmol/L [facility] Calcium 8.5 8.5 - 10.5 mg/dL [facility] Estimated GFR >60 >=60 [facility] Comment: This estimated GFR (eGFR) value was calc ulated using the MDRD equation which has been validated on patients between t he ages of 18 and 70. The MDRD should not be used to assess kidney function in patients < 18 years of age or in patients with extremes of body mass, or in patients with acute kidney failure. This value should be multiplied by 1.2 f or patients. For further information please copy and past e the following links into your internet browser. http://SwipeGood/DHnkdep [email or web address].[email or web address] Specimen Anatomical Collection Method Collection Time Receive d Time (Source) Location / / Volume Laterality Blood specimen 02/04/2016 5:45 AM 016 5:57 (specimen) EST AM EST Resulting Agency Comment Spec In Lab Sandrine Boggs MD CHEMISTRY ORDERABLES Performing Organization Address City/[facility]/ZIP Code Phon e Number [address] Specimen to Pathology (surgical or derm) (02/03/2016 9:33 AM EST) Specimen Anatomical Collection Method Collection Time Receive d Time (Source) Location / / Volume Laterality AP Specimen 02/03/2016 9:33 AM 6 9:33 EST AM EST Narrative [facility] - 02/03/2016 9:33 AM EST Specimen requisition ordered. ??Separate Pathology report to follow Mamta Casey MD PATHOLOGY/CYTOLOGY ORDERABLE S Performing Organization Address City/[facility]/[place] [address] Surgical Pathology Report (02/03/2016 9:32 AM EST) Component Value Ref Test Analysis [facility] Range Method Time Signature Surgical [id number] [facility]; [facility] Report The signing pathologist has (i) examined the relevant preparation(s) for the [facility] specimen(s) and (ii) rendered or confirmed the diagnosis(es) . HOSPITAL LABORATORY . ?Surgic al Pathology DIAGNOSIS Stomach, resection: - Segment of stomach with multiple ?? fundic gland polyps. Electronically signed by: ??Sulma FLOR, Alen Verified: ??02/06/2016 ?Pathologist CLINICAL INFORMATION Specimen Submitted: A - Stomach Clinical History: Morbid obesity Clinical Diagnosis: Morbid obesity SPECIMEN PROCESSING A - Labeled/Fixative: Stomach, fresh. SPECIMEN DESCRIPTION Resection Specimen: Wedge resection of stomach. Stomach: 18.7 x 4.3 x 2.5 cm cm. STOMACH Serosa: Glistening almanza-pink with mild congestion. Mucosa: Folded, pink-red with numerous, 0.2-0.4 cm polypoid lesions. Wall Thickness: Averages 0.4-0.6 cm. Sections/ Processing: [employer] Supervisor sections are submitted. (R4) ??pps Specimen (Source) Anatomical Collection Method Collection Time Re ceived Time Location / / Volume Laterality 02/03/2016 9:32 AM EST Mamta Casey MD PATHOLOGY/CYTOLOGY ORDERABLE S Performing Organization Address City/[facility]/ZIP Code Phon e Number [address] POCT Glucose (02/03/2016 6:41 AM EST) athologist Signature POC Glucose 95 65 - 199 [facility] mg/dL [facility] Comment: Supplemental ranges: <140 mg/dL before meals <180 mg/dL all other times of the day Specimen Anatomical Collection Method Collection Time Receive d Time (Source) Location / / Volume Laterality Blood specimen 02/03/2016 6:41 AM 016 6:41 (specimen) EST AM EST Mamta Casey MD POINT OF CARE TEST ORDERABLE S Performing Organization Address City/[facility]/[place] [address] documented in this encounter Visit Diagnoses Diagnosis Obesity, Class III, BMI 40-49.9 (morbid obesity) Morbid obesity documented in this encounter Admitting Diagnoses Diagnosis Obesity, Class III, BMI 40-49.9 (morbid obesity) Morbid obesity documented in this encounter Administered Medications Inactive Administered Medications - up to 3 most recent administrations Medication Order MAR Action Action Date Dose Rate Site acetaminophen (OFIRMEV) Given 02/04/2016 6:01 AM 1,000 mg 400 mL/hr injection 1,000 mg EST 1,000 mg, Intravenous, at 400 mL/hr, EVERY 8 HOURS SCHEDULED, 3 doses, First dose on Tue02/03/16 at 1400, Last dose on Tue02/04/16 at 0600, Routine Given 02/03/2016 9:25 PM EST 1,000 mg 400 mL/hr Given 02/03/2016 4:09 PM EST 1,000 mg 400 mL/hr acetaminophen (OFIRMEV) injection Given 02/05/2016 6:[address] 1,000 mg 400 mL/hr 1,000 mg 1,000 mg, Intravenous, at 400 mL/hr, EVERY 8 HOURS SCHEDULED, 3 doses, First dose on Tue02/04/16 at 1300, Last dose on Tue02/05/16 at 0600, STAT Given 02/04/2016 10:29 PM EST 1,000 mg 400 mL/hr Given 02/04/2016 1:15 PM EST 1,000 mg 400 mL/hr acetaminophen (TYLENOL) 650 mg/20.3 mL o ral liquid 650 mg 650 mg, Oral, EVERY 4 HOURS PRN, Starting on 02/04 at 1400, Until Tue02/05/16 at 1802, Fever, Maximum dose of acetaminophen is 4000 mg from all sources in 24 hours. , Routine acetaminophen (TYLENOL) tablet 1,000 mg Given 02/03/2016 7:14 AM EST 1,000 mg 1,000 mg, Oral, ONCE, 1 dose, On Tue02/03/16 at 0615, Maximum dose of acetaminophen is 4000 mg from all sources in 24 hours., STAT enoxaparin (LOVENOX) 40 mg/0.4 mL inject ion 1 dose, Starting on Tue02/03/16 at 0724 , Until Tue02/03/16 at 0730, HOLLY CARVER: hiinekristopher override enoxaparin (LOVENOX) injection 40 mg Given 02/03/2016 7:30 AM EST 40 mg 40 mg, Subcutaneous, ONCE, 1 dose, On Tue02/03/16 at 0745, In PREOP holding, STAT enoxaparin (LOVENOX) injection 40 mg Given 02/05/2016 8:01 AM EST 40 mg 40 mg, Subcutaneous, 2 TIMES DAILY, First dose on Tue02/03/16 at 1345, Until Discontinued, Routine Given 02/04/2016 8:36 PM EST 40 mg Given 02/04/2016 8:23 AM EST 40 mg hydrALAZINE (APRESOLINE) injection 10 mg Given 02/04/2016 8:53 PM EST 10 mg 10 mg, Intravenous, EVERY 4 HOURS PRN, Starting on Tue02/04/16 at 0346, Until Ofe 02/05/16 at 1802, High Blood Pressure, Administer for SBP > 150. Hold for SBP < 100. Given 02/04/2016 8:44 AM EST 10 mg Given 02/04/2016 4:25 AM EST 10 mg HYDROmorphone (DILAUDID) 1 New Syringe/Cartridge 02/03/2016 11:25 AM 50 mg mg/mL BOILER ERECTOR 50 mL EST Intravenous, BOILER ERECTOR ONLY, Starting on Tue02/03/16 at 1115, Until Tue02/04/16 at 1035, Recovery (Recovery-Hospital Unit) labetalol (NORMODYNE,TRANDATE) injection 20 mg Given 02/05/2016 4:46 AM EST 20 mg 20 mg, Intravenous, EVERY 2 HOURS PRN, Starting on Tue02/04/16 at 1146, Until Ofe 02/05/16 at 1802, High Blood Pressure, give for SBP > 150 or DPB > 95, Routine lactated ringers infusion 1,000 mL New Bag 02/03/2016 9:41 AM EST 1,000 mL, at 100 mL/hr, Intravenous, CONTINUOUS, Starting on Tue02/03/16 at 0700, Until Tue02/03/16 at 1243, Day of Surgery (Day of Procedure) New Bag 02/03/2016 6:39 AM EST 1,000 mLs 100 mL/hr lactated ringers infusion 1,000 New Bag 02/04/2016 7:39 AM EST 1,000 mLs 100 mL/hr mL 1,000 mL, at 100 mL/hr, Intravenous, CONTINUOUS, Starting on Tue02/03/16 at 1115, Until Tue02/04/16 at 1035, Recovery (Recovery-Hospital Unit) New Bag 02/03/2016 9:01 PM EST 1,000 mLs 100 mL/hr New Bag 02/03/2016 10:55 AM EST 1,000 mLs 100 mL/hr lactated ringers infusion New Bag 02/05/2016 3:03 AM EST 100 mL/hr 100 mL/hr 100 mL/hr, Intravenous, CONTINUOUS, Starting on Tue02/04/16 at 1215, Until Ofe 02/05/16 at 0756 New Bag 02/04/2016 6:12 PM EST 100 mL/hr 100 mL/hr New Bag 02/04/2016 12:12 PM EST 100 mL/hr 100 mL/hr ondansetron (ZOFRAN) injection 4 mg Given 02/04/2016 6:09 PM EST 4 mg 4 mg, Intravenous, EVERY 8 HOURS PRN, Starting on Tue02/04/16 at 1101, Until Tue02/05/16 at 0756, Nausea ondansetron (ZOFRAN-ODT) oral disintegrating Given 02/05/2016 3: 45 PM EST 4 mg tablet 4 mg 4 mg, Oral, ONCE, 1 dose, On Tue02/05/16 at 1330, Routine oxyCODONE (ROXICODONE) 5 mg/5 mL solution 5-10 Given 1 04/06/2015 1:17 PM EST 5 mg mg 5-10 mg, Oral, EVERY 3 HOURS PRN, Starting on Tue02/04/16 at 0451, Until Tue02/05/16 at 1802, Pain, Give 5 mg for pain scale 3-6, give 10 mg for pain scale 7-10., Routine Given 02/05/2016 10:01 AM EST 5 mg Given 02/05/2016 2:59 AM EST 5 mg pantoprazole (PROTONIX) injection 40 mg Given 02/05/2016 8:01 AM EST 40 mg 40 mg, Intravenous, DAILY, First dose on Tue02/03/16 at 1315, Until Discontinued, Reconstitute with 10 mL of normal saline to a concentration of 4 mg/mL and infuse slowly over 2 minutes. , Routine Given 02/04/2016 8:23 AM EST 40 mg Given 02/03/2016 2:16 PM EST 40 mg prochlorperazine (COMPAZINE) injection 1 0 mg Given 02/05/2016 2:51 AM EST 10 mg 10 mg, Intravenous, EVERY 6 HOURS PRN, Starting on Tue02/04/16 at 1101, Until Tue02/05/16 at 0756, Nausea, Routine Given 02/04/2016 8:29 PM EST 10 mg Given 02/04/2016 11:26 AM EST 10 mg prochlorperazine (COMPAZINE) injection 5 mg Given 02/04/2016 4:28 AM EST 5 mg 5 mg, Intravenous, EVERY 30 MIN PRN, 2 doses, Starting on Tue02/03/16 at 1130, Until Tue02/04/16 at 1035, Nausea, May repeat in 30 minutes if no relief from previous dose. HOLD if patient is sedated. Maximum dose is 40 mg in 24 hours. If multiple antiemetics are ordered, use ondansetron first, prochlorperazine second. Per BOILER ERECTOR order., Recovery (Recovery-Hospital Unit), Routine promethazine (PHENERGAN) injection 12.5 mg Given 02/03/2016 11:44 AM EST 4 mg 12.5 mg, Intravenous, EVERY 30 MIN PRN, 2 doses, Starting on Tue02/03/16 at 1023, Until Tue02/03/16 at 1144, Nausea, If multiple antiemetics ordered, use ondansetron first and if ineffective use prochlorperazine second and if ineffective use promethazine, PACU Recovery, Routine Given 02/03/2016 11:13 AM EST 4 mg scopolamine Patch Applied 02/03/2016 6:45 AM 1 patch 02 - Ear Behind (TRANSDERM-SCOP) 1.5 mg (1 EST (Right) mg over 3 days) patch 1 patch 1 patch, Transdermal, EVERY 72 HOURS, First dose on Tue02/03/16 at 0700, Until Discontinued, Day of Surgery (Day of Procedure), Routine scopolamine (TRANSDERM-SCOP) 1.5 mg (1 m g over 3 days) patch 1 dose, Starting on Tue02/03/16 at 0637, Until Tue at 0645, KAREN RTOY: cabinet override sodium chloride 0.9 % flush 5 mL Given 02/05/2016 8:02 AM EST 5 mLs 5 mL, Intravenous, 2 TIMES DAILY, First dose on Tue02/03/16 at 1315, Until Discontinued, Recovery (Recovery-Hospital Unit), Routine Given 02/04/2016 8:30 PM EST 5 mLs Given 02/04/2016 8:23 AM EST 5 mLs documented in this encounter Active and Recently Administered Medications Times are shown in EST. Scheduled Medication Order 02/03/2016 02/04/2016 02/05/2016 acetaminophen (OFIRMEV) injection 1,000 mg (COMPLETED) 2249 (Given - Provider: Deven Green RN)7302 (Given - Provider: Brett Barragan RN) 0601 (Given - Provider: Brett Barragan RN) 1,000 mg, Intravenous, at 400 mL/hr, TORRI RY 8 HOURS SCHEDULED, 3 doses, First dose on Tue02/03/16 at 1400, Last dose on Tue02/04/16 at 0600, Routine acetaminophen (OFIRMEV) injection 1,000 mg (COMPLETED) 1315 (Given - Provider: Laura Moody RN)2229 (Given - Provider: Gail Harvey, SUSI) 0615 (Given - Provider: Gail Harvey RN) 1,000 mg, Intravenous, at 400 mL/hr, TORRI RY 8 HOURS SCHEDULED, 3 doses, First dose on Tue02/04/16 at 1300, Last dose on Tue02/05/16 at 0600, STAT acetaminophen (TYLENOL) tablet 1,000 mg (COMPLETED) 07 14 (Given - Provider: Karen Troy RN) 1,000 mg, Oral, ONCE, 1 dose, Tue at 0615, Maximum dose of acetaminophen is 4000 mg from all sources in 24 hours., STAT ceFAZolin (ANCEF) 3g in dextrose 5% 100 mL (COMPLETED) 0754 (Given - Provider: Dashawn Spencer CRNA) 3 g, Intravenous, ONCE, 1 dose, 01/13 at 0745, Administer over 30 Minutes, historic sites registrar to OR, Indication for (Active or Suspected): Skin/Skin Structure enoxaparin (LOVENOX) injection 40 mg (COMPLETED) 0730 (Given - Provider: Karen Troy RN)0745 (Due) 40 mg, Subcutaneous, ONCE, 1 dose, Tue02/03/16 at 074 5, In PREOP holding, STAT enoxaparin (LOVENOX) injection 40 mg 1416 (Given - Pro vider: Deven Green RN)2124 (Given - Provider: Brett Barragan RN) 0823 (Given - Provider: Brittani Hoyt RN)203 (Given - Provider: Gail Harvey, SUSI) 0801 (Given - Provider: Ewa Pham RN) 40 mg, Subcutaneous, 2 TIMES DAILY, Firs t dose on Tue02/03/16 at 1345, Until Discontinued, Routine ondansetron (ZOFRAN-ODT) oral disintegrating tablet 4 mg 1545 (Given - Provider: Ewa Pham, SUSI) 4 mg, Oral, ONCE, 1 dose, [facility] 02/05/16 at 1330, Routine pantoprazole (PROTONIX) injection 40 mg 1416 (Given - Provider: Deven Green RN) 0823 (Given - Provider: Brittani Hoyt, SUSI) 0801 (Give n - Provider: Ewa Pham RN) 40 mg, Intravenous, DAILY, First dose on Tue02/03/16 at 1315, Until Discontinued, Reconstitute with 10 mL of normal saline to a concentration of 4 mg/mL and infuse slowly over 2 minutes. , Routine scopolamine (TRANSDERM-SCOP) 1.5 mg (1 mg over 3 days) patch 1 patch (CANCELED) 0645 (Patch Applied - Provider: Karen Troy, SUSI)0700 (Not Given - Provider: Sangeeta Guardado RN - Reason: See comment - Comment: given at 0645) 1 patch, Transdermal, EVERY 72 HOURS, Fi rst dose on Tue02/03/16 at 0700, Until Discontinued, Day of Surgery (Day of Procedure), Routine sodium chloride 0.9 % flush 5 mL 1417 (Given - Provide r: Deven Green RN)2126 (Given - Provider: Brett Barragan, SUSI) 0823 (Given - Provider: Brittani Hoyt, SUSI)2030 (Given - Provider: Gail Harvey, SUSI) 0802 (Given - Provider: Ewa Pham RN) 5 mL, Intravenous, 2 TIMES DAILY, First dose on Tue02/03/16 at 1315, Until Discontinued, Recovery (Recovery-Hospital Unit), Routine Continuous Medication Order 02/03/2016 02/04/2016 02/05/2016 HYDROmorphone (DILAUDID) 1 mg/mL BOILER ERECTOR 50 mL (CANCELED) 1125 (New Syringe/Cartridge - Provider: Abdon Galvez, SUSI) 1057 (Stopped - Provider: Laura Moody, SUSI) Intravenous, BOILER ERECTOR ONLY, Starting 01/13 at 1115, Until Tue02/04/16 at 1035, Recovery (Recovery-Hospital Unit) lactated ringers infusion 1,000 mL (CANCELED) 0639 (Ne w Bag - Provider: Karen Troy, SUSI)0728 (Canceled Entry - Provider: Dashawn Spencer CRNA)0804 (Anesthesia Volume Adjustment - Provider: Dashawn Spencer CRNA)0941 (New Bag - Provider: Dashawn Spencer CRNA) 1,000 mL, at 100 mL/hr, Intravenous, CON TINUOUS, Starting Tue02/03/16 at 0700, Until Tue02/03/16 at 1243, Day of Surgery (Day of Procedure) 1039 (Stopped - Provider: Dashawn Spencer CRNA) lactated ringers infusion 1,000 mL (CANCELED) 1055 (Ne w Bag - Provider: Abdon Galvez RN)2101 (New Bag - Provider: Brett Barragan RN) 0739 (New Bag - Provider: Laura Moody RN)1057 (Stopped - Provider: Laura Moody RN) 1,000 mL, at 100 mL/hr, Intravenous, CON TINUOUS, Starting Tue02/03/16 at 1115, Until Tue02/04/16 at 1035, Recovery (Recovery-Hospital Unit) lactated ringers infusion (CANCELED) 121 2 (New Bag - Provider: Laura Moody RN)1812 (New Bag - Provider: Laura Moody RN) 0303 (New Bag - Provider: Gail Harvey RN)0700 (Stopped - Provider: Ewa Pham RN) 100 mL/hr, at 100 mL/hr, Intravenous, CO NTINUOUS, Starting Tue02/04/16 at 1215, Until Ofe 02/05/16 at 0756 PRN Medication Order 02/03/2016 02/04/2016 02/05/2016 acetaminophen (TYLENOL) 650 mg/20.3 mL oral liquid 650 mg 650 mg, Oral, EVERY 4 HOURS PRN, Startin g Ofe 02/05/16 at 1400, Until Ofe 02/05/16 at 1802, Fever, Maximum dose of acetaminophen is 4000 mg from all sources in 24 hours. , Routine BUpivacaine (PF) (MARCAINE) 0.25 % (2.5 mg/mL) injecti on (CANCELED) 0944 (Given - Provider: Mamta Casey MD) ONCE PRN, Starting Tue02/03/16 at 0944, Until Ofe 02/05/16 at 1802, Intra- Operative (Intra-Procedure), Routine diphenhydrAMINE (BENADRYL) injection 25 mg 25 mg, Intravenous, EVERY 6 HOURS PRN, S tarting Tue02/03/16 at 1130, Until Ofe 02/05/16 at 1802, Itching, Routine hydrALAZINE (APRESOLINE) injection 10 mg 0425 (Given - Provider: Brett Barragan RN)08 (Given - Provider: Laura Moody, RN)2052 (Given - Provider: Gail Harvey, SUSI) 10 mg, Intravenous, EVERY 4 HOURS PRN, S tarting Tue02/04/16 at 0346, Until Ofe 02/05/16 at 1802, High Blood Pressure, Administer for SBP > 150. Hold for SBP < 100. labetalol (NORMODYNE,TRANDATE) injection 20 mg 445 (Given - Provider: Gail Harvey RN) 20 mg, Intravenous, EVERY 2 HOURS PRN, S tarting Tue02/04/16 at 1146, Until Ofe 02/05/16 at 1802, High Blood Pressure, give for SBP > 150 or DPB > 95, Routine lidocaine (XYLOCAINE) 10 mg/mL (1 %) injection 3 mg 3 mg (0.3 mL), Subcutaneous, ONCE PRN, 1 dose, Starting Tue02/03/16 at 1256, Until Ofe 02/05/16 at 1802, for discomfort with PIV insertion, Recovery (Recovery-Hospital Unit), Routine ondansetron (ZOFRAN) injection 4 mg (CANCELED) 1808 (Given - Provider: Laura Moody, SUSI) 4 mg, Intravenous, EVERY 8 HOURS PRN, St arting Tue02/04/16 at 1101, Until Ofe 02/05/16 at 0756, Nausea oxyCODONE (ROXICODONE) 5 mg/5 mL solution 5-10 mg 105 (Given - Provider: Laura Moody, SUSI)2028 (Given - Provider: Gail Harvey RN) 025 (Given - Provider: Gail Harvey RN)1001 (Given - Provider: Ewa Pham, SUSI)1317 (Given - Provider: Ewa Pham RN) 5-10 mg, Oral, EVERY 3 HOURS PRN, Starti ng Tue02/04/16 at 0451, Until Ofe 02/05/16 at 1802, Pain, Give 5 mg for pain scale 3-6, give 10 mg for pain scale 7-10., Routine polyethylene glycol (MIRALAX) packet 17 g 17 g, Oral, DAILY PRN, Starting 01/13 at 1256, Until Ofe 02/05/16 at 1802, Constipation, Administer if needed per patient's routine or if no bowel movement within 48 hours to achieve: 1) One danny l movement at least every 48 hours, AND 2) Without straining. If multiple bowel medications ordered, consider polyethylene glycol(MIRALAX) first., Routine prochlorperazine (COMPAZINE) injection 10 mg (CANCELED) 112 (Given - Provider: Laura Moody RN)2028 (Given - Provider: Gail Harvey RN) 0251 (Given - Provider: Gail Harvey RN) 10 mg, Intravenous, EVERY 6 HOURS PRN, S tarting Tue02/04/16 at 1101, Until Ofe 02/05/16 at 0756, Nausea, Routine prochlorperazine (COMPAZINE) injection 5 mg (CANCELED) 0428 (Given - Provider: Brett Barragan RN) 5 mg, Intravenous, EVERY 30 MIN PRN, 2 d oses, Starting Tue02/03/16 at 1130, Until Tue02/04/16 at 1035, Nausea, May repeat in 30 minutes if no relief from previous dose. HOLD if patient is sedated. Max imum dose is 40 mg in 24 hours. If mu ltiple antiemetics are ordered, use ondansetron first, prochlorperazine second. Per BOILER ERECTOR order., Recovery (Recovery-Hospital Unit), Routine promethazine (PHENERGAN) injection 12.5 mg (COMPLETED) 1113 (Given - Provider: Abdon Galvez RN - Comment: 1/8 dose diluted and given slow IV push through running IV)1144 (Given - Provider: Abdon Galvez, RN) 12.5 mg, Intravenous, EVERY 30 MIN PRN, 2 doses, Starting e 02/03/16 at 1023, Until Discontinued, Nausea, If multiple antiemetics ordered, use ondansetron first and if ineffective use prochlorperazi ne second and if ineffective use promethazine, PACU Recovery, Ro utine sodium chloride 0.9 % flush 5-20 mL 5-20 mL, Intravenous, EVERY 1 MIN PRN, S tarting 02/03/16 at 1256, Until Ofe 02/05/16 at 1802, flush, Flush pertains to all indwelling lines. Flush per protocol found in the job aid using the link pr ovided on this medication record., Recovery (Recovery-Hospital U nit), Routine documented in this encounter Care Teams Distillery Miller Helper Relationship Specialty Start Date End Date Soraya Lovett MD PCP - General Family Medicine 12/04/15 [address] [place] [address] documented as of this encounter
--- OUTSIDE RECORDS SUMMARY | 2021-10-09 00:10 | XMS_ITS | Encounter Summary ---
:1975 Author Organization [facility] Address [address] [place] [address] Care Team Providers Name Role Phone Soraya Lovett MD Primary Care Provider Reason for Visit Auth/Cert Specialty Diagnoses / Procedures Referred By Contact Refer red To Contact Diagnoses pre op for bariatric surgery Procedures PRO UPPER GI ENDOSCOPY, DIAGNOSTIC PRO ANESTH, UGI ENDOSCOPY EGD, UPPER GI ENDOSCOPY Referral ID Status Reason Start Date Expiration Date Visits Requ ested Visits Authorized [id number] 1 1 Encounter Details Date Type Department Care Team Description 01/16/2016 Surgery Gastroenterology at [facility] Yoko Marie MD EGD, UPPER GI [facility] [place][note 2] [place] [address] GASTROENTEROLOGY [place], [place] [address] Social History Tobacco Use Types Packs/Day Years [...] Sign Reading Time Taken Comments Blood Pressure 146/98 01/16/2016 10:49 AM EDT Pulse 76 01/16/2016 9:42 AM EDT Temperature - - Respiratory Rate 18 01/16/2016 10:49 AM EDT Oxygen Saturation 99% 01/16/2016 10:49 AM EDT Inhaled Oxygen Concentration - - Weight - - Height - - Body Mass Index - - documented in this encounter Discharge Instructions Discharge InstructionsAzra Kennedy RN - 01/16/2016 10:24 AM EDT UPPER GI ENDOSCOPY WHAT TO EXPECT AFTER THE PROCEDURE After the test you may feel a little more gassy or bloated than usual, this is normal. ACTIVITY Because of the sedation that you received Your judgement and reaction time are affected ?? Go home and rest quietly for the remainder of the day. You may resume your normal activities tomorrow. ?? Change from one position to the next slowly. You may lose your balance unexpectedly Be careful on stairs, as you may be unsteady on your feet. FOR THE NEXT 24 HRS ?? DO NOT DRIVE OR OPERATE ANY MACHINERY ?? DO NOT DRINK ALCOHOLIC BEVERAGES ?? DO NOT SIGN LEGAL DOCUMENTS ?? If you are a smoker: DO NOT SMOKE WHILE YOU ARE ALONE Diet ?? Start by eating small portions of foods that ordinarily will not upset your stomach. Be gentle with what you choose to start with. ?? Drink plenty of fluids ( unless otherwise told not to) Medications You may have a mild sore throat. Ice chips, popsicles, over the counter throat lozenges or spray may help numb your throat. This procedure should not cause a fever. IV SITE-- slight redness or tenderness is normal, you can use warm compresses if you get concerned.If the tenderness +/or redness increases or foul drainage and a red streak occurs, please contact your PCP immediately. WHEN SHOULD YOU CALL FOR HELP? Call 911 anytime you think that you need emergency care. For example, call if: You passed out (lost consciousness). You cough up blood. You vomit blood or what looks like coffee grounds. You pass maroon or very bloody stools. Call your healthcare provider or seek immediate medical attention if: You have trouble swallowing. You have belly pain. Your stools are black or tarlike or have streaks of blood. You are sick to your stomach or cannot keep fluids down. Watch closely for changes in your health, and be sure to contact your doctor IF Your throat still hurts after a day or two You do not get better as expected. [facility] [phone] 7a-8p Otherwise contact [phone] and ask to speak to the lens molder concrete stone fabricator Follow-up care is a krishna part of your treatment and safety. Be sure to make and go to all appointments, and call your doctor if you are having problems. Instructions have been reviewed and patient expresses understanding documented in this encounter Medications at Time [...] every 4 hours as needed for Pain. oxyCODONE-acetaminophe Take 1 tablet by mouth 0 02/05/2016 n (PERCOCET) 5-325 mg daily as needed for Tablet Pain. LOPERAMIDE HCL Take 2 tablets by 0 (IMODIUM A-D ORAL) mouth 2 times daily. metFORMIN (GLUCOPHAGE) Take 500 mg by mouth 2 0 02/25/2016 500 mg Tablet times daily (with meals). Unsure of dose documented as of this encounter H&P Notes Yoko Marie MD - 01/16/2016 10:35 AM EDT Gastroenterology and Hepatology Pre-Procedure History and Physical Exam Procedure: Colonoscopy: Indication: screening Patient Active Problem List Diagnosis Code ??? Morbid obesity with BMI of 40.0-44.9, adult E66.01, Z68.41 ??? IBS (irritable bowel syndrome) K58.9 ??? M19.90 ??? Prediabetes R73.03 ??? Menorrhagia N92.0 ??? Iron deficiency E61.1 ??? History of DVT (deep vein thrombosis) left arm Z86.718 EXAM: HEENT: Airway examined, oropharynx clear Mallampati Score: III (soft palate, base of uvula visible) LUNGS: Clear to auscultation HEART: Regular rate and rhythm, normal S1, S2 ABDOMEN: Normal bowel sounds, soft, non tender, non distended, A/P Proceed with the planned endoscopic procedure. ASA 3 - Patient with moderate systemic disease with functional limitations Sedation Plan: deep Risks and benefits of the procedure explained to the patient. Consent signed. Yoko Marie MD - 01/16/2016 9:55 AM EDT Gastroenterology and Hepatology Pre-Procedure History and Physical Exam Procedure: EGD: Indication: prior to bariatric surgery Patient Active Problem List Diagnosis Code ??? Morbid obesity with BMI of 40.0-44.9, adult E66.01, Z68.41 ??? IBS (irritable bowel syndrome) K58.9 ??? M19.90 ??? Prediabetes R73.03 ??? Menorrhagia N92.0 ??? Iron deficiency E61.1 ??? History of DVT (deep vein thrombosis) left arm Z86.718 EXAM: HEENT: Airway examined, oropharynx clear Mallampati Score: III (soft palate, base of uvula visible) LUNGS: Clear to auscultation HEART: Regular rate and rhythm, normal S1, S2 ABDOMEN: Normal bowel sounds, soft, non tender, non distended, A/P Proceed with the planned endoscopic procedure. ASA 3 - Patient with moderate systemic disease with functional limitations Sedation Plan: deep Risks and benefits of the procedure explained to the patient. Consent signed. documented in this encounter Plan of Treatment Not on filedocumented as of this encounter Procedures Procedure Name Priority Date/Time Associated Diagnosis Comme nts SURGICAL PATHOLOGY Routine 01/16/2016 10:17 AM Re sults for this REPORT EDT procedure are i n the results section. SPECIMEN TO Routine 01/16/2016 10:17 AM Results for this PATHOLOGY EDT procedure are i n the results section. SPECIMEN TO Routine 01/16/2016 10:17 AM Results for this PATHOLOGY EDT procedure are i n the results section. EGD, UPPER GI 01/16/2016 9:59 AM pre op for bariatric ENDOSCOPY EDT surgery UPPER GI ENDOSCOPY Routine 01/16/2016 9:54 AM Res ults for this EDT procedure are i n the results section. documented in this encounter Results Surgical Pathology Report (01/16/2016 10:17 AM EDT) Component Value Ref Test Analysis Performed At [facility] Range Method Time Signature Surgical [id number] ?Location: ; [facility]; [facility] Report The signing pathologist has (i) examined the relevant preparation(s) for the [facility] specimen(s) and (ii) rendered or confirmed the diagnosis(es) . HOSPITAL LABORATORY . ?Surgic al Pathology DIAGNOSIS A - Esophagus, ??polypectomy: - Squamous papilloma. B - Stomach, ??polypectomy: - Body/fundic-type mucosa, negative for diagnostic abnormali ty. Electronically signed by: ??Alen Ozuna MD Verified: ??01/21/2016 ?Pathologist CLINICAL INFORMATION Specimen Submitted: A - 5mm polypoid lesion in the esophagus B - Bx of gastric polyp (fundic gland hyperplasia?) Clinical History: 40 year-old for EGD prior to bariatric surgery Clinical Diagnosis: Same SPECIMEN PROCESSING A - Labeled/Fixative: 5 mm polypoid lesion in the esophagus, formalin. Quantity/Size: Two, 0.4 and 0.5 cm. Tissue Description: Soft, tavarez-white and pink-almanza tissue. Sections/Processing: (T1) B - Labeled/Fixative: Biopsy of gastric polyp (fundic gland hyperplasia?), formalin. Quantity/Size: ?? two, Averaging 0.2 cm. Tissue Description: ??Soft, red-almanza tissue . Sections/Processing: (T1) ??ejr Specimen (Source) Anatomical Collection Method Collection Time Re ceived Time Location / / Volume Laterality 01/16/2016 10:17 AM EDT Yoko Marie MD PATHOLOGY/CYTOLOGY ORDERABLE S Performing Organization Address City/[facility]/ZIP Code Phon e Number [address] Specimen to Pathology (surgical or derm) (01/16/2016 10:17 AM EDT) Specimen Anatomical Collection Method Collection Time Receive d Time (Source) Location / / Volume Laterality AP Specimen 01/16/2016 10:17 01/16/2016 AM EDT 10:17 AM EDT Narrative [facility] [place] 01/16/2016 10:17 AM EDT Specimen requisition ordered. ??Separate Pathology report to follow Yoko Marie MD PATHOLOGY/CYTOLOGY ORDERABLE S Performing Organization Address City/[facility]/ZIP [facility] Phon e Number [address] Specimen to Pathology (surgical or derm) (01/16/2016 10:17 AM EDT) Specimen Anatomical Collection Method Collection Time Receive d Time (Source) Location / / Volume Laterality AP Specimen 01/16/2016 10:17 01/16/2016 AM EDT 10:17 AM EDT Narrative [facility] [place] 01/16/2016 10:17 AM EDT Specimen requisition ordered. ??Separate Pathology report to follow Yoko Marie MD PATHOLOGY/CYTOLOGY ORDERABLE S Performing Organization Address City/[facility]/[place]IP [place] [address] UPPER GI ENDOSCOPY (01/16/2016 9:54 AM EDT) Component Value Ref Test Analysis Performed At [facility] Range Method Time Signature UPPER GI [facility] ENDOSCOPY Endoscopy Procedure Date: 01/16/2016 9:54 AM ? Patient Name: Seng Muse ? Date of : 1975 ? Age: 40 ? Order #: [id number] ? Instrument Name: [id number] ? Procedure: ? Upper GI endoscopy Indications: ? Preoperative assessment for bariatr ic ? surgery to treat morbid obesi ty Providers: ? Yoko Marie MD Referring MD: ?Soraya Lovett MD Medicines: ? Monitored Anesthesia Care Complications: ? No immediate complications. Procedure: ? Pre-Anesthesia Assessment: ? - Prior to the procedure, a H istory ? and Physical was performed, a nd ? patient medications and aller gies ? were reviewed. The patient is ? competent. The risks and bene fits of ? the procedure and the sedatio n ? options and risks were discus sed with ? the patient. All questions we re ? answered and informed consent was ? obtained. Patient identificat ion and ? proposed procedure were verif ied by ? the physician, the anesthetis t and ? the chemistry quality control technician in the endosco py ? suite. Mental Status Examinat ion: ? normal. Respiratory Examinati on: ? clear to auscultation. CV ? Examination: normal. Prophyla ctic ? Antibiotics: The patient does not ? require prophylactic antibiot ics. ? Prior Anticoagulants: The pat ient has ? taken no previous anticoagula nt or ? antiplatelet agents. ASA Grad e ? Assessment: III - A patient w ith ? severe systemic disease. Afte r ? reviewing the risks and benef its, the ? patient was deemed in satisfa ctory ? condition to undergo the proc edure. ? The anesthesia plan was to us e ? monitored anesthesia care (MA C). ? Immediately prior to administ ration ? of medications, the patient w as ? re-assessed for adequacy to r eceive ? sedatives. The heart rate, ? respiratory rate, oxygen satu rations, ? blood pressure, adequacy of p ulmonary ? ventilation, and response to care ? were monitored throughout the ? procedure. The physical statu s of the ? patient was re-assessed after the ? procedure. ? The procedure, indications, b enefits, ? risks and alternatives were e xplained ? to the patient. Specifically ? discussed were potential ? complications including, but not ? limited to, bleeding, perfora tion, ? infection, missing a cancer, and ? adverse medication reactions. The ? Endoscope was introduced thro h the ? mouth, and advanced to the ird part ? of duodenum. The patient tole rated ? the procedure well. The upper GI ? endoscopy was accomplished wi [facility]. ? The patient tolerated the pro cedure ? fairly well. ? Findings: ? One 5 mm polyp was found 26 cm from the incisors. The ? polyp was removed with a cold biopsy forceps. ? Resection and retrieval were complete. Z line at ? 36cm. No hiatus hernia. ? A few 2 to 5 mm sessile polyps were found in the ? gastric fundus and in the gastric body. Biopsies were ? taken with a cold forceps for histology. ? The examined duodenum was normal. ? Impression: ?- Esophageal polyp(s) were found. ? Resected and retrieved. ? - A few gastric polyps, appea neri ? consistent with fundic gland ? hyperplastic polyps (benign). ? Biopsied. ? - Normal examined duodenum. Recommendation: ?- Await pathology results. ? - Return to referring physici an. ? Attending Participation: ? I personally performed the entire procedure. ? Yoko Marie MD 01/16/2016 10:34:43 AM Number of Addenda: 0 Note Initiated On: 01/16/2016 9:54 AM Specimen (Source) Anatomical Collection Method Collection Time Re ceived Time Location / / Volume Laterality 01/16/2016 9:54 AM EDT Soraya Lovett MD GENERAL SURGICAL ORDERABLES Performing Organization Address City/State/ZIP Code Phon e Number [facility] documented in this encounter Visit Diagnoses Not on filedocumented in this encounter Administered Medications Inactive Administered Medications - up to 3 most recent administrations Medication Order MAR Action Action Date Dose Rate Site lactated ringers infusion New Bag 01/16/2016 10:00 AM 100 mL/hr 100 mL/hr 100 mL/hr, Intravenous, EDT CONTINUOUS, Starting on Tue01/16/16 at 1000, Until Tue01/16/16 at 1053, Endoscopy (Day of Procedure) documented in this encounter Active and Recently Administered Medications Times are shown in EDT. Continuous Medication Order 01/14/2016 01/15/2016 01/16/2016 lactated ringers infusion (CANCELED) 1000 (New Bag - Provider: Kayla Sanders RN)1020 (Anesthesia Volume Adjustment - Provider: Kathrin Cassidy CRNA) 100 mL/hr, at 100 mL/hr, Intravenous, CO NTINUOUS, Starting 01/16/16 at 1000, Until Tue01/16/16 at 1053, Endo (Day of Procedure) documented in this encounter Care Teams Lollypop Machine Operator Relationship Specialty Start Date End Date Soraya Lovett MD PCP - General Family Medicine 12/04/15 [address] [place] [address] documented as of this encounter
--- OUTSIDE RECORDS SUMMARY | 2021-10-09 00:10 | XMS_ITS | Encounter Summary ---
:1975 Author Organization [facility] [place] [address] Care Team Providers Name Role Phone Soraya Lovett MD Primary Care Provider Reason for Visit Reason Comments Patient Education Bariatric Surgery Program pr eoperative class SMA Encounter Details Date Type Department Care Team Description 01/23/2016 Office Visit General Surgery at Richard Cannon APRN [facility] [place] [address] Iron deficiency; [facility] Amanda Cooper, PRAVEEN Morbid obesity with BMI of 40.0-44.9, ad ult; [facility] Osteoarth ritis of both knees, unspecified osteoarthritis type; Drive PCOS (polycystic ovarian syn drome) [place] [address] Social History Tobacco Use Types Packs/Day Years [...] on file documented as of this encounter Patient Instructions Patient InstructionsAlyse Cannon T - 01/23/2016 9:30 AM EST BARIATRIC SURGERY DISCHARGE INFORMATION CONTACT INFORMATION: [phone] Surgeons: Randy Kwok and Madhu [phone] Telecommunications Project Manager: [phone] (Tuesday through Tuesday, 8:00 AM -5:00 PM) Dietitians: [phone] Non-business hours: [phone], ask for general surgeon director of first impressions FOR EMERGENCIES: CALL 911 (trouble breathing, chest [...] clot prevention exercises in your handbook on page82 ULCER PREVENTION: omeprazole 20 mg daily must be taken for 3 MONTHS after surgery: Take this to prevent ulcers, even if you do not have heartburn. The prescription will need to be refilled after the 3 month course if you have heartburn or reflux or need to restart celebrex ?? Omeprazole capsules contain enteric-coated, delayed-release granules. [...] TO AVOID FOR TWO MONTHS AFTER SURGERY: HOLD celebrex 1 week prior to and 2 months after surgery. If needed, you can restart after 2 months post op, but will need to stay on omeprazole to reduce risk of ulcer. This does not eliminate risk of ulcer. ??? Avoid anti-inflammatory non-steroidal medications, such as Advil, Aleve, etc. Refer to Medications that may increase the risk of bleeding in handbook. ??? If you take aspirin for your heart or to prevent strokes, continue as prescribed. . VITAMIN AND MINERAL SUPPLEMENTATION: Vitamin B12 500 [...] yearly for life. WOMEN OF CHILDBEARING AGE: ??? Fertility may increase with weight loss. Avoid for 18-24 months after surgery. Condomsalone are not acceptable as a form of control. Do not take control pills for the first month after surgery. documented in this encounter Progress Notes Alyse Cannon - 01/23/2016 9:30 AM EST Vanna attended a comprehensive two hour pre-operative class today, which included discussion of pre and post operative instructions included in the [facility] Bariatric Surgery Program Education Handbook. Theone hour nutrition component of the class was taught by the BSP RD. Updates since last visit: - EGD done on 16: ??Esophageal polyp(s) were found. A few gastric polyps, appearance consistentwith fundic gland ??hyperplastic polyps (benign). Normal examined duodenum. Path: Esophagus, ??polypectomy: Squamous papilloma. Stomach, ??polypectomy: Body/fundic-type mucosa, negative for diagnostic abnormality. - Labwork today: Results for VANNA MUSE ( ) as of 01/23/2016 17:40 Ref. Range 01/23/2016 12:32 Ferritin Latest Ref Range: 15 - 150 ng/mL 47 Iron Latest Ref Range: 30 - 150 mcg/dL 72 TIBC Latest Ref Range: 250 - 450 mcg/dL 361 Iron Saturation Latest Ref Range: 20 - 50 % 20 OR date: 02/03/[address] Padilla Individualized plan of care: ?? Send prescription for enoxaparin to [facility] pharmacy on day of surgery to avoid delay in patient starting medication, since all enoxaparin prescriptions require prior approval ?? Hold celebrex for 5 days prior to and 2 months after surgery. Note: discussion with Vanna today- she has chronic severe joint pains, and holding celebrex without other treatment will be a significanthardship. She takes percocet infrequently. I advised her to discuss further with her primary care physician for non-NSAID pain recommendations, perhaps increasing percocet Rx, or tramadol or diclofenac1% gel ?? Discussion with primary care post discharge regarding recommendations for metformin which she takes for prediabetes Recommendations for post discharge VTE prophylaxis (unless change in condition during hospitalization that would contraindicate treatment): Enoxaparin 40 mg BID x 10 days post discharge. Prescriptions provided at today's visit: (faxed to pharmacy) 1. Ursodiol 300 mg BID x 6 months, to start at 2 weeks post-operatively for cholelithiasis prevention 2. Omeprazole 20 mg once daily x 3 months, to start upon discharge for ulcer prevention. Refill if needs to restart celebrex at 2 months post surgery OTC Vitamin and mineral supplements required post discharge: ?? Multivitamin with minerals twice daily ?? Vitamin B12 500 mcg by mouth once daily ?? Calcium citrate 600 mg with Vitamin D 400 units twice daily ?? Iron with Vitamin C, 50-66 mg once daily (take iron with vitamin C 550 mg to help with absorption) Bariatric Surgery Program Pathway and review of status with the requirements of the Bariatric Surgery Program 1. Education: She previously attended a Introduction to the [facility] Bariatric Surgery Program seminar,a two hour meeting that provides a program overview as well as expectations. The [facility] Bariatric Surgery Program Educational seminar requirement (3 seminars with post-testing) has been met. The BSP Educational Handbook was provided at visit #1. 2. Pre-operative programmatic evaluations have been done, as noted in previous pathway review. 3. Bariatric Surgery Program evaluations with RD and VARNISH FILTERER have taken place, as noted in previous pathway documentation 4. Weight requirements have been achieved and documented. 5. All pre-operative requirements were achieved. 6. Surgical consultation has taken place, and she has been approved to proceed with surgery by surgeon and insurer. Next steps in pathway: ?? During hospitalization for bariatric surgery, a standard bariatric surgery order set is followed. ?? Routine post-operative follow up with labwork is done at months 1,4,12,18 and 24, yearly thereafter, and PRN. High risk patients are followed more frequently. Some of the topics reviewed during group discussion today included: ?? day of surgery and post-op routine care/ locations: Admissions/SDP/PACU/// [facility] ?? medications that increase the risk of bleeding including NSAIDS, ASA and Plavix to be avoided perguidelines pre and post-operatively ?? DVT/VTE prevention and signs of DVT/PE. ?? Inpatient management for VTE prevention: venodynes, ambulation, Enoxaparin 40 units BID during inpatient stay. ?? Indications for extended Enoxaparin 10 days post discharge: A. patients with BMI >60 or prior VTE OR B. 2 or more of the following: age >50, BMI >50, male gender, sleep apnea, varicose veins, venous insufficiency, history of oral contraceptive or hormone or post-menopausal hormone replacement use within 30 days of surgery, and recent smoking ?? guidelines for patients on Coumadin per prescribing physician or Anticoagulation Clinic ?? diabetes and hypertension monitoring post-operatively ?? signs and symptoms of infection as well as emergency signs and symptoms ?? common post-operative complaints ?? management of sleep apnea during hospitalization and post operatively. The importance of post-operative follow-up with [facility] after weight loss was stressed. ?? recommendations for psychiatric medications: should continue uninterrupted after surgery ?? activity post surgery/ return to work recommendations ?? pre-operative and post-operative dietary recommendations ?? post-op vitamin and mineral supplementation ?? routine BSP post-operative follow-up: 3 weeks. 4, 12,18, 24 months and yearly for LIFE ?? routine Primary Care post-operative follow up: at 10-14 days after surgery to monitor chronic health problems such as diabetes and hypertension, since the requirement for antihypertensive and diabetic medications may decrease or be discontinued A preliminary copy of the discharge instructions was provided, which is also available in the patient handbook. Vanna appeared to have a good understanding of the information presented, and asked appropriate questions. She satisfactorily completed the post-test administered, and achieved a grade of 100%. All her questions were answered. Time spent in individual counseling and coordination of care: 5 minutes Time spent in group counselin minutes Amanda Cooper - 01/23/2016 9:30 AM EST Vanna attended a comprehensive two hour pre-operative class today, which included discussion of pre and post operative instructions included in the [facility] Bariatric Surgery Program Education Handbook. Onehour of today's group visit was spent in review of dietary and post op vitamin and mineral supplementation. Some of the topics reviewed today included: ??? pre-operative and post-operative dietary recommendations ??? post-op vitamin and mineral supplementation Vanna appeared to have a good understanding of the information presented, and asked appropriate questions. All her questions were answered. documented in this encounter Plan of Treatment Not on filedocumented as of this encounter Procedures Procedure Name Priority Date/Time Associated Diagnosis Comme nts IRON AND TIBC Routine 01/23/2016 12:32 PM Iron deficiency Resu lts for this EST procedure are i n the results section . FERRITIN Routine 01/23/2016 12:32 PM Iron deficiency Resul ts for this EST procedure are i n the results section . documented in this encounter Results Iron and TIBC (01/23/2016 12:32 PM EST) P athologist Signature Iron 72 30 - 150 [facility] TIBC 361 250 - 450 [facility]/dL [facility] Iron Saturation 20 20 - 50 % [facility] Specimen Anatomical Collection Method Collection Time Receive d Time (Source) Location / / Volume Laterality Blood specimen 01/23/2016 12:32 6 (specimen) PM EST 12:36 PM EST Resulting Agency Comment Spec In Lab Tim Padilla MD CHEMISTRY ORDERABLES Performing Organization Address City/[facility]/ZIP Code Phon e Number [place] [phone] Ferritin (01/23/2016 12:32 PM EST) athologist Signature Ferritin 47 15 - 150 [facility] ng/mL [facility] Comment: Pediatric reference ranges not verified at [facility], interpret with caution. Reference ranges for females greater sae n 50 years of age approach values for men, i.e., 30-400 ng/mL. Specimen Anatomical Collection Method Collection Time Receive d Time (Source) Location / / Volume Laterality Blood specimen 01/23/2016 12:32 6 (specimen) PM EST 12:36 PM EST Resulting Agency Comment Spec In Lab Tim Padilla MD CHEMISTRY ORDERABLES Performing Organization Address City/[facility]/ZIP Code Phon e Number [place] [phone] documented in this encounter Visit Diagnoses Diagnosis Iron deficiency Iron deficiency anemia, unspecified Morbid obesity with BMI of 40.0-44.9, ad ult Morbid obesity Osteoarthritis of both knees, unspecifie d osteoarthritis type PCOS (polycystic ovarian syndrome) Polycystic ovaries documented in this encounter Care Teams Pump Machine Operator Relationship Specialty Start Date End Date Soraya Lovett MD PCP - General Family Medicine 12/04/15 [address] [place] [address] documented as of this encounter
--- OUTSIDE RECORDS SUMMARY | 2021-10-09 00:10 | XMS_ITS | Encounter Summary ---
:1975 Author Organization [facility] [place] [address] Care Team Providers Name Role Phone Soraya Lovett MD Primary Care Provider Reason for Visit Reason Comments Morbid Obesity Bariatric Surgery Program pr eoperative visit #2 SMA Encounter Details Date Type Department Care Team Description 12/31/2015 Office Visit General Surgery at Richard Cannon APRN [facility] [place] [address] [facility] Amanda Cooper, [place] [id number] Social History Tobacco Use Types Packs/Day Years Used Date Never Assessed Sex Assigned at Date Recorded Not on file documented as of this encounter Last Filed Vital Signs Vital Sign Reading Time Taken Comments Blood Pressure 140/86 12/31/2015 9:57 AM EDT Pulse 78 12/31/2015 9:57 AM EDT Temperature - - Respiratory Rate - - Oxygen Saturation 100% 12/31/2015 9:57 AM EDT Inhaled Oxygen Concentration - - Weight 118.2 kg (260 lb 8 oz) 12/31/2015 9:57 AM EDT Height 167.6 cm (5' 6) 12/31/2015 9:57 AM EDT Body Mass Index 42.05 12/31/2015 9:57 AM EDT documented in this encounter Patient Instructions Patient InstructionsAlyse Cannon T - 12/31/2015 9:30 AM EDT BARIATRIC SURGERY PROGRAM SECOND VISIT Contact information: [facility] Admin coordinator Beata: [phone] or [phone] Dietitians: [phone] Surgeons/ nurse practitioners: [phone] or [phone] Nurse line: [phone] Pending information: - Mammogram - control plan- Nuva ring is good, will need to hold it 1 month prior to and after surgery 1. Ongoing weight loss is encouraged. . 2. After your surgical consultation, all pertinent information will be faxed to your insurer for approval, which can take a few weeks. 3. Your surgery date and pre-operative class will be scheduled after your appointment with Dr. Padilla.If you need to change your surgery date, please call Chayo or Izzy at to reschedule. Your surgery date may change if insurance is approval is delayed. Prepare for the Pre-op Class by doing the followin. Review the program handbook and come to class with a list of questions. 2. Watch the educational videos including Psychological Implications of bariatric surgery on the [facility] website under Bariatric Surgery ([email or web address]) 3. Come prepared to the class to discuss meal planning. 4. Bring your supplements 5. Come with tips and suggestions that my be helpful to others. Questions for your doctor, specialist or pharmacist: 4. Ask your doctor about medication suggestions if you currently take medications that are larger than the size of a tylenol. Large pills need to be crushed (if permitted by the drug tool designer apprentice) ortaken in liquid form for TWO WEEKS after surgery. Diabetic oral medication often does not need to betaken after surgery) ?? If you take antinflammatory medications or steroid medicationsfor arthritis or asthma, please check with your doctor. These medications will likely need to be held 1 week prior to and at least a fewweeks after surgery. Bariatric surgery apps- [facility] facebook page: [email or web address] documented in this encounter Progress Notes Alyse Cannon - 12/31/2015 9:30 AM EDT Reason for visit: Seng is a 40 y.o. year-old female who presents for review of progress since initial visit, and discussion of risks and benefits of bariatric surgery. Ms. Muse's bariatric procedure of choice: RNY gastric bypass History of present illness: see notes from 12/23/15. Since her last visit, she has been cooking and packing food to bring to work. She has refrained from alcohol in the past week. BARIATRIC SURGERY PROGRAM PATHWAY Review of progress with the requirements of the Bariatric Surgery Program: 1. Education: He has attended a Introduction to the [facility] Bariatric Surgery Program seminar08/15/2015.[facility] BSP Educational seminars viewed: 3. Grades on post- testin-100%. The BSP Educational Handbook is provided at preoperative visit #1. 2. Pre-operative programmatic evaluations required: PCP evaluation and letter of support to proceed with surgery, BSP labwork (can be done on day of visit #1) and psychological evaluation- minimum of 2visits. 3. Bariatric Surgery Program evaluations with RD and OPHTHALMIC TECHNICIAN APPRENTICE: 12/23/15 and 12/31/15 4. Weight history: 242# on 11/29/13, 260# on 06/25/14, 262# on 08/12/15, 255# on 11/13/15, 259 pounds on 12/23/15. HT: 66 WT at visit #1: 259 pounds. WT at visit #2: 260 pounds. 5. Gallbladder status: intact, not studied. 6. Insurer specific requirements: [employer] of [place] 7. BSP Team meeting discussion: no indication 8. Next steps in pathway: ?? Since all BSP requirements and testing have been completed: surgical consultation has been scheduled with ?? Following surgical consultation, if approved to proceed to surgery by surgeon and insurer: an operative date and Pre-operative Education Class, a 2 hour class taught by the Bariatric OPHTHALMIC TECHNICIAN APPRENTICE and RD will be scheduled ?? During hospitalization for bariatric surgery, a standard bariatric surgery order set is followed. ?? Routine post-operative follow up with labwork is done at months 1,4,12,18 and 24, yearly thereafter, and PRN. High risk patients are followed more frequently. Problem List ??? Preoperative Class III obesity BMI 41.8 ??? Prediabetes treated with metformin ??? Musculoskeletal issues: current treatment with Celebrex, chcf NSAID use - DJD knees, needs knee replacement- Dr Yadira DOHERTY in [place] ??? History of DVT to left shoulder [...] restricted diet high in salad and raw veggies ??? Iron deficiency (ferritin 15 on 12/23/15) ??? Menorrhagia intermittent, had IUD, which was removed last year Past Surgical History Procedure Laterality Date ??? Foot surgery Left 2011 [place] procedure ??? Tibia osteotomy Right 2006, 2008 ??? [place] teeth extractions ??? Arthroscopies Bilateral ??? Microfracture procedure knees ??? Carpal tunnel release Bilateral 2009 ??? Partial first rib removal Left 2005 thoracic outlet syndrome Anesthesia history (per patient): denies untoward events Allergies Allergen Reactions ??? Pineapple Hives Raw pineapple causes mouth hives ??? Vicodin [Hydrocodone-Acetaminophen] Hives fevers Medications Medication Sig Taking? celecoxib (CELEBREX) 200 mg Capsule Take 200 mg by mouth 2 times daily. oxyCODONE-acetaminophen (PERCOCET) 5-325 mg Tablet Take 1 tablet by mouth daily as needed for Pain. LOPERAMIDE HCL (IMODIUM A-D ORAL) Take 2 tablets by mouth 2 times daily. metFORMIN (GLUCOPHAGE) 500 mg Tablet Take 500 mg by mouth 2 times daily (with meals). Unsure of dose multivitamin (THERAGRAN) Tablet Take 1 tablet by mouth daily. Screening/other Date Evaluation Results 2016 Primary care Colonoscopy Done ~[address] [place] [address] Oc Smith, reports as normal 12/22/13 Pap negative 11/09/13 Mammogram ACR category 1: negative - DEXA Recent diagnostic screening/ evaluations since initial visit: - EGD pending Changes to review of systems/ medications since initial visit: She has a control plan: Nuva ring. Overall changes to comorbidities are noted in Updated Problem list. Review of plans for post-operative support after discharge: boyfriend Exam: BP 140/86 Pulse 78 Ht 167.6 cm (5' 6) Wt (!) 118.2 kg (260 lb 8 oz) SpO2 100% BMI 42.05 kg/m2 Discussion of bariatric surgeries performed at [facility], risks and benefits, and the [facility] Bariatric Surgery Program requirements: The risks of immediate and moth exterminator complications as well as the benefits of gastric bypass and sleeve gastrectomy surgeries, as outlined extensively in the Bariatric Surgery Program Handbook, which is a >100 page document, were reviewed. She is aware that all bariatric surgeries are elective procedures. The mechanism by which gastric bypass and sleeve gastrectomy surgeries lead to weight loss was reviewed. The concept that bariatric surgery is a tool for weight loss and not a cure for obesity was again emphasized. The need for commitment to chcf lifestyle changes, with healthy diet and regular physical activity was stressed to achieve and sustain chcf weight loss. Benefits of bariatric surgery discussed: ?? estimated loss of 50% - 70% of excess body weight with gastric bypass and sleeve gastrectomy, generally less weight loss after sleeve gastrectomy. Patients rarely achieve ideal body weight, especially patients with BMIs >50. ?? improvement or resolution of weight related comorbidities such as obesity- related hypertension, sleep apnea, NAFLD/ WILKINSON, esophageal reflux, restrictive lung disease and hyperlipidemia when anticipated weight loss is achieved. ?? Type 2 diabetes improvement occurs in the majority of patients shortly after gastric bypass, often prior to discharge from the hospital, prior to any weight loss. Patients with >10 year history of diagnosis of type 2 diabetes often will need to remain on insulin chcf. There is less improvement to type 2 diabetes after sleeve gastrectomy as compared with gastric bypass. ?? patients also generally feel better, with improvement in self-esteem and activity levels. Potential but rare risks of gastric bypass and sleeve gastrectomy discussed: ?? inability to perform the operation ?? <0.01%. ?? bleeding and splenic injury with the need for blood transfusion ?? heart and lung complications, including prolonged mechanical ventilation and possible tracheostomy, very rare ?? wound infection and seroma, rare in laparoscopic patients ?? DVT with fatal pulmonary emboli. Prophylactic measures used including Enoxaparin, sequential compression devices and early ambulation. Some patients are discharged on extended Enoxaparin therapy whomeet scoring criteria ?? rhabdomyolysis ?? nutritional deficiencies, including protein-calorie malnutrition, vitamins B12, B1, D, folate, iron deficiency and anemia. ?? gallstones, significantly decreased by prophylactic treatment with Ursodiol for 6 months post-operatively. ?? peripheral neuropathy related to chronic poor nutrition or B vitamin deficiencies ?? transient telogen effluvium ?? patients weighing >350 pounds with increased risks related to radiology equipment weight limits, which may necessitate return to OR for evaluation Risks specific to gastric bypass discussed: ?? anastomotic leakage with the development of peritonitis and abscess, potentially leading to sepsis, renal failure and . ?? anastomotic stricture ?? Lifetime risk of anastomotic ulcer, increased with NSAID use, tobacco and regular alcohol use ?? lifetime risk of small bowel obstruction ?? lifetime risk of internal and trocar site hernias, rare ?? potential risk for renal calculi, increased with chronic poor hydration and prior history of renal calculi Risks specific to laparoscopic sleeve gastrectomy discussed: ?? leak at the staple line with the development of peritonitis and abscess, potentially leading to sepsis, renal failure and . The rate of leak after sleeve at [facility] is 0%. ?? stricture of gastric remnant with need for dilatation ?? prolonged nausea and vomiting early post surgery ?? Worsening or development of GERD ?? Potential revision to gastric bypass due to severe GERD ?? generally less weight loss than gastric bypass Potential secondary effects of bariatric surgeries discussed: ?? weight regain/ poor weight loss influenced by eating behaviors and lack of a regular exercise program. Drinking high calorie liquids, frequent snacking or ingestion of large amounts of soft foods will cause weight gain . ?? dumping syndrome associated with gastric bypass ?? Lactose intolerance associated with gastric bypass ?? sagging skin in any area, such as the face, torso and extremities following weight loss. Body contouring surgery may not be a covered benefit by the individual's insurer, and is associated with scarring, risk of infection etc. Patients are advised that if unable to accept the possibility of skin redundancy following weight loss, then they should not proceed with bariatric surgery. Bariatric surgery is done for health reasons, not to improve physical appearance. ?? transfer of addictions or symptom substitution behavior. When food is no longer available to secure a sense of comfort and/or relieve stress, some may turn to alcohol or illicit substances, while others may turn to excessive shopping, gambling or other indiscretions. ?? Worsening of psychiatric illness Seng was advised that bariatric surgery would likely be ineffective for those who: ?? receive a great deal of satisfaction from eating ?? have active eating disorders including binge eating disorder and bulimia ?? are in the midst of serious personal or unstable psychiatric problems Other information discussed: For females of child-bearing age: avoidance of for at least 12-18 months post-operatively.Use of contraception is recommended. She will be using a Nuva ring. Bariatric Surgery Follow up for LIFE: ?? 3 weeks, 4, 8, 12,18 and 24 months, yearly thereafter. More frequent follow up done as clinicallyindicated. Labwork: done at all routine visits except 1 month post op Post-operative support group meetings: held on the first Tuesday of every month. All patients are encouraged to attend. Vitamin and mineral supplementation for LIFE: ?? B12 500 mcg sublingual daily, calcium citrate 500-600 mg with vitamin D 400- 500 mg BID, multivitamins with minerals and iron twice a day. Iron in the form of ferrous fumarate or carbonyl iron is taken with vitamin C once a day for menstruating females or those with iron deficiency or anemia. She appeared to have a good understanding of the information presented at today's meeting, and seemsto have reasonable and realistic expectations of bariatric surgery. She previously signed an agreement stating that She is willing to comply with instructions, lifetime vitamin and mineral supplements a nd programmatic follow up. Assessment/ Plan: 40 y.o. year old female with Class III obesity with established obesity-related chronic disease. Currently, bariatric surgery is the best treatment available for morbid obesity, providing the only mechanism for reproducible, effective, and sustained weight loss. Ms.. Muse is interested in a laparoscopic approach to bariatric surgery, and meets BSP requirements. She is aware that conversion to an open procedure is possible. ??? Her Bariatric Surgery VTE Risk Assessment score, as determined at visit #1 is elevated due to prior history of VTE, which indicates that enoxaparin 40 mg SQ BID is recommended during inpatient stay, as well as 10 days post discharge. Ms. Muse has met the requirements of the [facility] Bariatric Surgery Program, and has an appointment today for surgical consultation. She was encouraged to call with any questions or concerns. Data reviewed: - Visit #2 questionnaire Information reviewed with patient: 1. [facility] Bariatric Surgery Program Educational Handbook, bariatric surgery patient agreement and risks and benefits of gastric bypass and sleeve gastrectomy reviewed in detail. Pending/ other: - EGD 01/15 - Mammogram - Copy of colonoscopy, requested - CBC and CMP within 3 months of surgery, per [facility] accredited bariatric center guidelines (if surgery done after 03/24/15) - Ongoing weight loss encouraged OR date: 02/03/16 Preop class recommendations: VTE 2, + IFEANYI, + PPI, hold celebrex Time spent in counseling: Individual planning and coordination of care: 5 minutes Group counselin minutes Questions regarding [facility] Bariatric Surgery Program patients: please call Darnell Strickland APRN or Regina Cannon APRN at [phone] or [phone] beeper [phone]. Amanda Cooper - 12/31/2015 9:30 AM EDT BARIATRIC SURGERY PROGRAM NUTRITION EDUCATION 2nd Pre-Operative Visit Shared Medical Appointment Seng Muse attended a 2 hour shared medical appointment today for her second pre-operative visit with the Bariatric Surgery Program dietitian and nurse practitioner. Ms. Muse is a morbidly obese female who has been referred for nutrition evaluation and diet instruction in anticipation of bariatric surgery. Previous conservative attempts at weight loss through dieting have been unsuccessful over the chcf. Advised patient that bariatric surgery is a weight loss tool not a solution; and ultimately weight loss will be achieved through proper eating and exercise habits. She was given suggestions for how to incorporate dietary and lifestyle changes into her daily schedule. Patient was given a copy of the program handbook at the initial appointment which includes specific information on all nutritional recommendations and guidelines. She was also given contact information for further nutritional questions. Ms. Muse showed good understanding of the concepts discussed. Nutrition Topics Covered at Today's Appointment: ?? Pre-operative Surgical Diet ?? Purpose of diet ?? Appropriate foods ?? Protein goals ?? Carbohydrate goals ?? Calorie goals ?? Keeping a food log ?? Hydration and Appropriate Beverages ?? Post-Operative Diets (Stages I-IV) ?? Importance of following diet stages ?? Appropriate foods ?? Sample Menus ?? Vitamin/Mineral Supplementation ?? Common Food Intolerances ?? Dumping Syndrome ?? Sugar Alcohols ?? Physical Activity The appointment consisted of 60 minutes of group education and counseling. documented in this encounter Plan of Treatment Not on filedocumented as of this encounter Visit Diagnoses Diagnosis DH ERRONEOUS ENCOUNTER documented in this encounter Care Teams Medicaid Plan Compliance Director Relationship Specialty Start Date End Date Soraya Lovett MD PCP - General Family Medicine 12/04/15 [address] [place] [address] documented as of this encounter
--- OUTSIDE RECORDS SUMMARY | 2021-10-09 00:10 | XMS_ITS | Encounter Summary ---
:1975 Author Organization [facility] [place] [address] Care Team Providers Name Role Phone Soraya Lovett MD Primary Care Provider Reason for Visit Auth/Cert Specialty Diagnoses / Procedures Referred By Contact Refer red To Contact Diagnoses pre op for bariatric surgery Procedures PRO UPPER GI ENDOSCOPY, DIAGNOSTIC PRO ANESTH, UGI ENDOSCOPY EGD, UPPER GI ENDOSCOPY Referral ID Status Reason Start Date Expiration Date Visits Requ ested Visits Authorized [id number] 1 1 Encounter Details Date Type Department Care Team Description 01/16/2016 Hospital Encounter Gastroenterology at [facility] Yoko Marie MD [facility] [place] [address] [facility] [phone] GASTRO[place]Y [place], [place] [address] Social History Tobacco Use Types [...] You do not get better as expected. Tuesday-Tuesday Same Day Endo [phone] Otherwise contact [phone] and ask to speak to the patient financial counselor termite control representative Follow-up care is a krishna part of [...] Component Value Ref Test Analysis Performed At [facility] Range Method Time Signature Surgical [id number] ?Location: ; [facility]; [facility] Report The signing pathologist has [...] MD PATHOLOGY/CYTOLOGY ORDERABLE S Performing Organization Address City/[facility]/ZIP Code Phon e Number [address] Specimen to Pathology (surgical or derm) (01/16/2016 10:17 AM EDT) Specimen Anatomical Collection Method Collection Time Receive d Time (Source) Location / / Volume Laterality AP Specimen 01/16/2016 10:17 01/16/2016 AM EDT 10:17 AM EDT Narrative [facility] - 01/16/2016 10:17 AM EDT Specimen requisition ordered. ??Separate Pathology report to follow Yoko Marie MD PATHOLOGY/CYTOLOGY ORDERABLE S Performing Organization Address City/[facility]/ZIP Code Phon e Number [address] Specimen to Pathology (surgical or derm) (01/16/2016 10:17 AM EDT) Specimen Anatomical Collection Method Collection Time Receive d Time (Source) Location / / Volume Laterality AP Specimen 01/16/2016 10:17 01/16/2016 AM EDT 10:17 AM EDT Narrative [facility] - 01/16/2016 10:17 AM EDT Specimen requisition ordered. ??Separate Pathology report to follow Yoko Marie MD PATHOLOGY/CYTOLOGY ORDERABLE S Performing Organization Address City/[facility]/ZIP [facility] [place] [address] UPPER GI ENDOSCOPY (01/16/2016 9:54 AM EDT) Component Value Ref Test Analysis Performed At [facility] Range Method Time Signature UPPER GI [facility] ENDOSCOPY Endoscopy Procedure Date: 01/16/2016 9:54 AM ? Patient Name: Seng Muse ? Date of : 1975 ? Age: 40 ? Order #: [id number] ? Instrument Name: [id number] ? Procedure: ? Upper GI endoscopy Indications: ? Preoperative assessment for bariatr ic ? surgery to treat morbid obesi ty Providers: ? Yoko Marie MD Referring : ?Soraya Lovett MD Medicines: ? Monitored Anesthesia [...] physician, the anesthetis t and ? the water and fire technician in the endosco py ? suite. [...] reactions. The ? Endoscope was introduced thro ugh the ? mouth, and advanced to the [facility] part ? of duodenum. The patient ghassane rated ? the procedure well. The upper GI ? endoscopy was accomplished wi [facility]. ? The patient tolerated the pro cedure [...] at 100 mL/hr, Intravenous, CO NTINUOUS, Starting Tue01/16/16 at 1000, Until 01/16/16 at 1053, Endo (Day of Procedure) documented in this encounter Care Teams Farm Truck Driver Relationship Specialty Start Date End Date Soraya Lovett MD PCP - General Family Medicine 12/04/15 [address] [place] [address] documented as of this encounter
--- OUTSIDE RECORDS SUMMARY | 2021-10-09 00:10 | XMS_ITS | Encounter Summary ---
:1975 [place] [address] Care Team Providers Name Role Phone Soraya Lovett MD Primary Care Provider Reason for Visit Auth/Cert Specialty Diagnoses / Procedures Referred By Contact Refer red To Contact Diagnoses Obesity, morbid MORBID OBESITY Procedures PRO LAPAROSCOPY, SURG/GASTRIC RESTRICTIVE PROC, LONGITUDINAL GASTRECTOMY @LAPAROSCOPY, SURG/GASTRIC RESTRICTIVE PROC, LONGITUDINAL GASTRECTOMY Referral ID Status Reason Start Date Expiration Date Visits Requ ested Visits Authorized [id number] 1 1 Encounter Details Date Type Department Care Team Description 02/03/2016 Anesthesia Event Main Operating Room Kina Alvarez MD [facility] Ghada alexand[place] [address] [place] [id number] [phone] (Wo rk) Anesthesia Record Procedure Summary Procedure Name Responsible Anesthesia Start Anesthesia Stop Anesthesiologist Time Time @George LEAL Ying Hui, MD 02/03/16 0728 02/03/16 1039 SURG/GASTRIC RESTRICTIVE PROC, LONGITUDINAL GASTRECTOMY (WRVU 20.38) (N/A Abdomen) Events Date Time Event Comment 02/03/2016 0725 0728 Start 0736 AN Verify 0736 An Start Data 0741 An Induction 0745 An Intubation 0748 Anesthesia Ready 1029 Extubation/LMA Out 1033 an stop data 1038 Recovery or ICU Handoff Patient care was transferred to the destination unit staff after review of the patient's medica l history, current anesthetic/surgi king status and plan, according to the Provider Handoff Checklist. 1039 Stop Name Total Midazolam 4 mg IV Lidocaine 40 mg Propofol 200 mg Rocuronium 115 mg PHENYLephrine 640 mcg Ondansetron 8 mg Dexamethasone 8 mg Neostigmine 2 mg Glycopyrrolate 0.4 mg Ketamine 10 mg/mL 50 mg ceFAZolin (ANCEF) 3g in dextrose 5% 100 mL 3 g Dexmedetomidine 12 mcg Labetalol 10 mg PHENYLephrine INF 3,500 mcg Propofol INF 51 mg HYDROmorphone 0.6 mg lactated ringers infusion 1,000 mL 1,300 mL Agents Name O2 Air N2O Sevoflurane (et) Blood No blood administrations on file. Lines, Drains, and Airways Type Details Placement Removal Incision 02/03/16; 826; abdomen; 02/03/16 08 by Jsoué, laparoscopic punctures Fe Robertson RN (specify) (Multiple trocar sites.); x5 PIV 02/03/16; 0631; metacarpal 02/03/16 0631 by 01/13 06/27 1531 by Cross, vein (top of hand), right; Karen Stiles R N Taylor M, RN [id number] catheter system; 20 gauge; em; intradermal injection, tolerated well; no longer indicated; 02/05/16; 1531 ETT Mask Ventilation: Easy (1); 02/03/16 0745 by Low , 02/03/16 1029 by ETT Type: Cuffed, Oral; ETT MD Nelda Chavez Hayes C, STRIP POLISHER Size: 7.5 mm; Mac Blade: 3; Notes: Asleep, Pre-O2; Attempts: 1; Laryngoscopy Grade: 1; ETT Placement Verified By: Auscultation, Capnometry, Visual; Secured at Teeth: 22 cm; Inserted by: cande documented in this encounter Social History Tobacco Use Types Packs/Day Years Used Date Never Smoker Smokeless Tobacco: Never Used Alcohol Use Standard Drinks/Week Comments No 0 (1 standard drink = 0.6 oz pure alcoho l) Sex Assigned at Date Recorded Not on file documented as of this encounter OR Notes Anesthesia Postprocedure Evaluation - Amalia Vazquez MD - 02/03/2016 10:38 AM EST [facility] [place] of Anesthesiology Post-procedure Note Patient: Seng Muse Procedure Summary Date Anesthesia Start Anesthesia Stop Room / Location 02/03/[address] [place] [address] OR [facility] MAIN OR Procedure Diagnosis Surgeon Responsible Provider @LAPAROSCOPY, SURG/GASTRIC RESTRICTIVE PROC, LONGITUDINAL GASTRECTOMY (N/A Abdomen); ENDOSCOPY, UPPER GI, DIAGNOSTIC, WITH OR WITHOUT SPECIMENS (N/A Esophagus) (MORBID OBESITY) Tim Padilla MD Low, Ying Hui, MD All Anesthesia Providers: Anesthesiologist: Amalia Vazquez MD STRIP POLISHER: Dashawn Spencer CRNA Last (1hr) Vitals: BP 121/66 (02/03/16 1036) Temp 36.6 ??C (97.9 ??F) (02/03/16 1036) Pulse Resp SpO2 Patient Location: PACU/[facility] Level of Consciousness: Conscious but Sleepy Pain Management: Satisfactory Analgesia PONV: None Cardiovascular Status: Hemodynamically Stable Respiratory Status: Supplemental O2 (NC or FM) Postoperative Fluid Status: Intravascular EUvolemia Possible Anesthetic Complications: NONE apparent at time of evaluation Final Primary Anesthesia Type: General (The anesthetic type performed was the same as planned.) Comments: Anesthesia Preprocedure Evaluation - Amalia Vazquez MD - 02/02/2016 2:39 PM EST Pre-Anesthesia Evaluation for: Seng Muse a 40 y.o. female. Procedure(s): @LAPAROSCOPY, SURG/GASTRIC RESTRICTIVE PROC, LONGITUDINAL GASTRECTOMY Patient Active Problem List Diagnosis ??? Osteoarthritis of both knees ??? History of DVT (deep vein thrombosis) left arm ??? Iron deficiency ??? Menorrhagia ??? Preoperative Class III obesity BMI 42, sleeve gastrectomy planned 02/03/16 Bariatric Surgery Program 1. Attended Introduction to the [facility] [place], a comprehensive two hour meeting that provides a program overview, education on bariatric surgeries offered at [facility], risks and benefits, as well as patient expectations and follow up: 08/15/2015. [facility] Educational seminars viewed: Grades on post-testing: The [facility] Educational Handbook is provided at preoperative visit #1. 2. Pre-operative programmatic evaluations required: PCP evaluation and letter of support to proceed with surgery, [facility] labwork (can be done on day of visit #1) and psychological evaluation- minimum of 2visits. 3. Bariatric Surgery Program evaluations with RD and HAZARDOUS MATERIALS DRIVER: 12/23/15 4. Weight history: 242# on 11/29/13, [...] age 14 ??? IBS (irritable bowel syndrome) - normal colonoscopy on 08/14/2007. Path: unremarkable ? Prediabetes No past medical history on file. Past Surgical History Procedure Laterality Date ??? Foot surgery Left 2011 [place] procedure ??? Tibia osteotomy Right 2006, 2007 ??? Carpal tunnel release Bilateral 2009 ??? First rib removal thoracic outlet syndrome ??? Pro upper gi endoscopy, diagnostic N/A 01/16/2016 EGD, UPPER GI ENDOSCOPY performed by Yoko Marie MD at [facility] ENDOSCOPY ??? Colonoscopy 08/14/2007 done to evaluate chronic diarrhea. normal exam, no evidence of inflammatory bowel disease. Path unremarkable Social History Substance Use Topics ??? Smoking status: Never Smoker ??? Smokeless tobacco: Not on file ??? Alcohol use Yes Comment: socially History Drug Use No Allergies Allergen Reactions ??? Pineapple Hives Raw pineapple causes mouth hives ??? Vicodin [Hydrocodone-Acetaminophen] Hives fevers Medications: MAR and/or home medications have been reviewed. Physical Exam: There were no vitals filed for this visit. There is no height or weight on file to calculate BMI. Airway Assessment: Mallampati: II TM distance: >3 FB Neck ROM: full Cardiovascular Assessment: Rhythm: regular cardiovascular exam normal Pulmonary Assessment: breath sounds clear to auscultation pulmonary exam normal Dental Assessment: - normal exam Misc Assessment: IV access: Peripheral line Anesthesia Plan: ASA 3 general, with a(n) intravenous induction Seng Muse is a 40 y.o. year-old female who is scheduled for a laparoscopic sleeve gastrectomy with bariatric surgery. Medical history is also significant for chronic pain on celecoxib and Percocet, non-insulin dept preDMII, h/o left arm DVT, IBS, iron deficiency due to menorrhagia (last Hb 12.3), BMI 42. Anesthesia history Prev GAs for tibial osteotomy without complications. Prev MAC for EGD w/o cx. No family history of anesthesia complications Vascular Access PIV NPO status Has been NPO since Labs Lab Results Component Value Date WBC 8.6 12/23/2015 HGB 12.3 12/23/2015 HCT 38.3 12/23/2015 MCV 87.2 12/23/2015 PLATELET 294 12/23/2015 Lab Results Component Value Date NA 139 12/23/2015 K 4.3 12/23/2015 CL 102 12/23/2015 CO2 24 12/23/2015 BUN 13 12/23/2015 CREATININE 0.71 12/23/2015 GLUCFASTING 77 12/23/2015 CALCIUM 9.2 12/23/2015 Lab Results Component Value Date ALT 27 12/23/2015 AST 16 12/23/2015 ALKPHOS 57 12/23/2015 BILITOT 0.2 12/23/2015 BILIDIR 0.1 12/23/2015 ALBUMIN 4.6 12/23/2015 PROT 7.1 12/23/2015 No results found for: HA1C No results found for: PTT Medications ??? (START ON 02/03/2016) acetaminophen (TYLENOL) tablet 1,000 mg ??? ferrous sulfate 325 mg (65 mg iron) Tablet??? ascorbic acid, vitamin C, (VITAMIN C) 500 mg Tablet??? celecoxib (CELEBREX) 200 mg Capsule??? oxyCODONE- acetaminophen (PERCOCET) 5-325 mg Tablet??? LOPERAMIDE HCL (IMODIUM A-D ORAL)??? metFORMIN (GLUCOPHAGE) 500 mg Tablet??? multivitamin (THERAGRAN) Tablet??? (START ON 02/17/2016) ursodiol (ACTIGALL) 300 mg Capsule??? (START ON 02/04/2016) omeprazole (PRILOSEC) 20 mg Capsule, Delayed Release(E.C.) Anesthetic Plan Plan for GA, ETT, 2 PIVs, standard ASA monitors. Region - Other Informed Consent: Anesthetic plan and risks discussed with patient. Use of blood products discussed with patient who consented to blood products. Plan discussed with STRIP POLISHER. PAT Staff Note documented in this encounter Miscellaneous Notes Addendum Note - Dashawn Spencer CRNA - 02/03/2016 10:45 AM EST Addendum created 02/03/16 1045 by Dashawn Spencer CRNA Anesthesia Event edited, Anesthesia Intra Flowsheets edited, Anesthesia Intra LDAs edited, Anesthesia Intra Meds edited, Anesthesia Staff edited, Flowsheet data copied forward, LDA properties accepted, Order sets accessed, Patient device added, Patient device removed, Procedure Event Log accessed documented in this encounter Plan of Treatment Not on filedocumented as of this encounter Visit Diagnoses Not on filedocumented in this encounter Administered Medications Inactive Administered Medications - up to 3 most recent administrations Medication Order MAR Action Action Date Dose Rate Site ceFAZolin (ANCEF) 3g in dextrose 5% Given 02/03/2016 7:54 AM EST 3 g 100 mL 3 g, Intravenous, ONCE, 1 dose, On Tue02/03/16 at 0745, Administer over 30 Minutes, ethologist to OR, Indication for (Active or Suspected): Skin/Skin Structure dexamethasone (DECADRON) injection Given 02/03/2016 7:41 AM EST 8 mg PRN, Starting on Tue02/03/16 at 0741, Until Tue02/03/16 at 1039, Anesthesia Intra-op, Routine dexmedetomidine (PRECEDEX) injection Given 02/03/2016 7:50 AM EST 12 mcg PRN, Starting on Tue02/03/16 at 0750, Until Tue02/03/16 at 1039, Anesthesia Intra-op, Routine glycopyrrolate (ROBINUL) multi-dose Given 02/03/2016 10:23 AM ES T 0.2 mg injection PRN, Starting on Tue02/03/16 at 0728, Until Tue02/03/16 at 1039, Anesthesia Intra-op, Routine Given 02/03/2016 7:28 AM EST 0.2 mg HYDROmorphone (DILAUDID) injection Given 02/03/2016 10:21 AM EST 0.6 mg PRN, Starting on Tue02/03/16 at 1021, Until Tue02/03/16 at 1045, Pain, Anesthesia Intra-op, Routine ketamine (KETALAR) 10 mg/mL bolus injection Given 02/03/2016 7:5 1 AM EST 20 mg (Anesthesia) PRN, Starting on Tue02/03/16 at 0741, Until Tue02/03/16 at 1039, Anesthesia Intra-op Given 02/03/2016 7:41 AM EST 30 mg labetalol (NORMODYNE,TRANDATE) multi-dose Given 02/03/2016 7:57 AM EST 10 mg injection PRN, Starting on Tue02/03/16 at 0754, Until Tue02/03/16 at 1039, High Blood Pressure, Anesthesia Intra-op, Routine lactated ringers infusion 1,000 mL New Bag 02/03/2016 9:41 AM EST 1,000 mL, at 100 mL/hr, Intravenous, CONTINUOUS, Starting on Tue02/03/16 at 0700, Until Tue02/03/16 at 1243, Day of Surgery (Day of Procedure) New Bag 02/03/2016 6:39 AM EST 1,000 mLs 100 mL/hr lidocaine (PF) (XYLOCAINE) 100 mg/5 mL (2 %) Given 6 7:40 AM EST 40 mg injection PRN, Starting on Tue02/03/16 at 0740, Until Tue02/03/16 at 1039, Anesthesia Intra-op, Routine midazolam (PF) (VERSED) 1 mg/mL multi-dose Given 02/03/2016 7:38 AM EST 1 mg injection PRN, Starting on Tue02/03/16 at 0728, Until Tue02/03/16 at 1039, Sleep, Anesthesia Intra-op, Routine Given 02/03/2016 7:28 AM EST 3 mg neostigmine (PROSTIGMINE) multi-dose inj ection Given 02/03/2016 10:23 AM EST 2 mg PRN, Starting on Tue02/03/16 at 1023, Until Tue02/03/16 at 1039, Anesthesia Intra-op, Routine ondansetron (ZOFRAN) injection Given 02/03/2016 9:42 AM EST 8 mg PRN, Starting on Tue02/03/16 at 0942, Until Tue02/03/16 at 1039, Nausea, Anesthesia Intra-op, Routine PHENYLephrine Rate/Dose Change 02/03/2016 9:57 AM 20 mcg/min 15 mL/hr (ELIZABETH-SYNEPHRINE) 20 mg in EST sodium chloride 250 mL (standard ADULT & Jacinda greater than 20kg) infusion CONTINUOUS PRN, Starting on Tue02/03/16 at 0843, Until Tue02/03/16 at 1039, Anesthesia Intra-op, Routine Rate/Dose Change 02/03/2016 9:55 AM EST 30 mcg/min 22.5 mL/hr Rate/Dose Change 02/03/2016 9:08 AM EST 50 mcg/min 37.5 mL/hr PHENYLephrine HCl in NS (PF) Given 02/03/2016 9:12 AM EST 160 mc g (ELIZABETH-SYNEPHRINE) 0.8 mg/10 mL (80 mcg/mL) multi-dose injection Syrg PRN, Starting on Tue02/03/16 at 0819, Until Tue02/03/16 at 1039, Anesthesia Intra-op, Routine Given 02/03/2016 8:36 AM EST 80 mcg Given 02/03/2016 8:33 AM EST 80 mcg propofol (DIPRIVAN) 10 mg/mL bolus injection Given 7:41 AM EST 200 mg (Anesthesia) PRN, Starting on Tue02/03/16 at 0741, Until Tue02/03/16 at 1039, Anesthesia Intra-op propofol (DIPRIVAN) infusion New Bag 02/03/2016 10:06 AM 30 mcg/kg/min 18 mL/hr CONTINUOUS PRN, Starting on Tue EST 02/03/16 at 1006, Until Tue02/03/16 at 1039, Anesthesia Intra-op, Routine rocuronium (ZEMURON) multi-dose injectio n Given 02/03/2016 9:32 AM EST 15 mg PRN, Starting on Tue02/03/16 at 0741, Until Tue02/03/16 at 1039, Anesthesia Intra-op, Routine Given 02/03/2016 8:17 AM EST 50 mg Given 02/03/2016 7:41 AM EST 50 mg documented in this encounter Care Teams Residential Treatment Counselor Relationship Specialty Start Date End Date Soraya Lovett MD PCP - General Family Medicine 12/04/15 [address] [place] [address] documented as of this encounter
--- OUTSIDE RECORDS SUMMARY | 2021-10-09 00:10 | XMS_ITS | Encounter Summary ---
:1975 Author Organization [facility] [place] [address] Care Team Providers Name Role Phone Kamala Lovett MD Primary Care Provider Reason for Visit Reason Onset Date Comments Questions 01/02/2016 Encounter Details Date Type Department Care Team Description 01/02/2016 Telephone General Surgery at [facility] Lesly [place], [place] [address] Social History Tobacco Use Types Packs/Day Years Used Date Never Assessed Sex Assigned at Date Recorded Not on file documented as of this encounter Miscellaneous Notes Telephone Encounter - Lesly [place], RN - 01/02/2016 9:08 AM EDT Nursing Triage - Phone Note DATE OF CALL: 01/02/2016 TIME OF CALL: 9:08 AM PATIENT DATE OF : 1975 CALLER: Pt to the General Surgery Clinic Learning Needs Assessment Reviewed: Yes SUBJECTIVE - I need clarification about the NUVA ring in my after visit summary. PERTINENT PAST MEDICAL HISTORY: PT is scheduled for the following with Dr Padilla: Surgeon Role Tim Padilla MD Primary Procedure Laterality Anesthesia @LAPAROSCOPY, SURG/GASTRIC RESTRICTIVE PROC, LONGITUDINAL GASTRECTOMY NURSING OBJECTIVE/ASSESSMENT: Clarified with Alyse WATTERS INTERVENTION/PLAN/ FOLLOW UP: Pt to use some other form of control (not the NUVA ring) 1 monthprior to surgery and 1 month after surgery. If your symptoms do not improve, or they worsen, report to your local emergency department. CALLER AGREES: Yes PCP: KAMALA LOVETT MD documented in this encounter Plan of Treatment Not on filedocumented as of this encounter Visit Diagnoses Not on filedocumented in this encounter Care Teams Milk Vendor Relationship Specialty Start Date End Date Kamala Lovett MD PCP - General Family Medicine 12/04/15 [address] [place] [address] documented as of this encounter
--- OUTSIDE RECORDS SUMMARY | 2021-10-09 00:10 | XMS_ITS | Encounter Summary ---
:1975 Author Organization [facility] Address [address] [place] [address] Care Team Providers Name Role Phone Soraya Lovett MD Primary Care Provider Encounter Details Date Type Department Care Team Description 12/31/2015 Office Visit General Surgery at Tim [facility] obesity with [facility] MD [place] BMI of 45.0-49.9, [facility] [address] [place] GENERAL SURGERY [address] [place] [address] [phone] Social History Tobacco Use Types Packs/Day Years Used Date Never Assessed Sex Assigned at Date Recorded Not on file documented as of this encounter Progress Notes Tim Padilla MD - 12/31/2015 2:40 PM EDT Seng Muse is a 40-year-old female who is here to discuss bariatric surgery. At this point, she has had full participation at [facility] Bariatric Surgery program and meets NIH criteria for weight loss surgery. She has been researching this quite a bit and, all things considered, would like to proceed with a Eva-en-Y gastric bypass. As I speak with her, it turns out her major criteria for choosing that is that it has been around longer. I spent some time with her reviewing various risks and benefits of the two procedures and I think in general gastric bypass has a higher weight loss amount but it certainly comes with it at a greater skilled nursing complication rate. She is someone that I would be comfortable offering either a sleeve or a bypass to and it would really be up to her to make that decision. Following a review of our conversation, she also mentioned that she is on Celebrex watermelon inspector and likely will need it even after surgery and has been told by an orthopedic surgeon that she is likely looking at knee replacements in the future, and I think given that reason she would like to decrease her risk of forming a marginal ulcer and is leaning towards a sleeve. I told her we can go ahead and schedule that, and if she would to change mind between now and the date of surgery, I would be comfortable with that as well. I reviewed with her in detail of the risk section of the bariatric handbook and she had her questions addressed. We will go ahead and set her up for a laparoscopic sleeve gastrectomy at some point in the near future. documented in this encounter Plan of Treatment Not on filedocumented as of this encounter Visit Diagnoses Diagnosis Morbid obesity with BMI of 45.0-49.9, ad ult Morbid obesity documented in this encounter Care Teams Electric Blanket Packer Relationship Specialty Start Date End Date Soraya Lovett MD PCP - General Family Medicine 12/04/15 [address] [place] [address] documented as of this encounter
--- OUTSIDE RECORDS SUMMARY | 2021-10-09 00:10 | XMS_ITS | Encounter Summary ---
:1975 Author Organization [facility] [place] [address] Care Team Providers Name Role Phone Kamala Lovett MD Primary Care Provider Reason for Referral Consultation (Routine) - Closed Specialty Diagnoses / Procedures Referred By Contact Refer red To Contact Gastroenterology Diagnoses Morbid obesity, unspecified obesity type FPC current use of non-steroidal anti-inflammatories (NSAID) Alyse Cannon, [facility] [address] [place] [address] [place] [address] Referral ID Status Reason Start Date Expiration Date Visits V isits Requested Authorized [id number] Closed Test Only 12/28/2015 12/27/2016 1 1 Reason for Visit Reason Comments Morbid Obesity Bariatric Surgery Program pr eoperative visit #1 Consultation (Routine) - Specialty Diagnoses / Procedures Referred By Contact Refer red To Contact General Surgery Procedures Kamala Lovett MD Quigley, Maureen T, EVALUATE FOR BARIATRIC [address] [place] [address] [facility] GENERAL SURGERY [place], [place] [address] Phone: Fax: Referral ID Status Reason Start Date Expiration Date Visits V isits Requested Authorized [id number] 12/12/2015 12/11/2016 1 1 Encounter Details Date Type Department Care Team Description 12/23/2015 Office Visit General Surgery at Richard Cannon APRN [facility] DR [place] [address] Morbid obesity, unspecified obesity type ; [facility] Amanda Cooper RD FPC current use of non-steroidal a nti-inflammatories (NSAID); [facility] Screening for iron deficiency anemia; Drive Pain in joints; [place], [place] Morbid obesity with BMI of 40.0-44.9, adult; [id number] Irritable bowel syndrome wit h diarrhea [phone] Social History Tobacco Use Types Packs/Day Years Used Date Never Assessed Sex Assigned at Date Recorded Not on file documented as of this encounter Last Filed Vital Signs Vital Sign Reading Time Taken Comments Blood Pressure 114/84 12/23/2015 11:30 AM EDT Pulse 93 12/23/2015 9:08 AM EDT Temperature 36.7 ??C (98.1 ??F) 12/23/2015 9:08 AM EDT Respiratory Rate 18 12/23/2015 9:08 AM EDT Oxygen Saturation 100% 12/23/2015 9:08 AM EDT Inhaled Oxygen Concentration - - Weight 117.5 kg (259 lb) 12/23/2015 9:08 AM EDT Height 167.6 cm (5' 6) 12/23/2015 9:08 AM EDT Body Mass Index 41.8 12/23/2015 9:08 AM EDT documented in this encounter Patient Instructions Patient InstructionsAmanda Cooper - 12/23/2015 9:00 AM EDT BARIATRIC SURGERY PROGRAM FIRST VISIT Contact information: [facility] Admin coordinator Marisa: [phone] Dietitian: [phone] Surgeons/ nurse practitioner: [phone] Nurse line: [phone] Recommendations to do list after today's visit: Medications: ?? Start the following medications: Pending lab results. Evaluations/ testing: ?? The following evaluations are needed: 1. Upper endoscopy.to rule out ulcer given half-way NSAID use Pending information: colonoscopy, op report Bariatric Surgery Program educational information: will plan pending date of upper endoscopy 1. Read the Bariatric Surgery Program Educational Handbook thoroughly, highlight important areas to remember. Write down any questions that you may have to discuss at next visit. 2. Bring the Handbook to ALL pre-operative visits, including the surgeon visit. Keep the handbook cassandra safe place for easy retrieval. Your next visits: All visits take place in the General Surgery Clinic, Direct Support Professional Home Health Area 4L 3. 2nd visits with dietitian and nurse practitioner ([facility]- Shared Medical Appointment) 4. Surgical consultation 5. Pre-op class: to be determined at a later date 6. Bring the questionnaire to your next visit. Complete within 1 day of the visit Decrease alcohol, goal is zero prior to surgery Nutrition: Prepare meals ahead of time to help consume 3 meals per day and avoid skipping meals or consuming high calorie meals with staff. Consume protein at every meal and choose high protein snacks as alternatives to sweets or convenience foods. 1) Practice post-op GB diet recommendations prior to surgery to support post-op success and long-term weight loss: ??? Eat 3 meals daily, spaced about 4-6 hours apart. ??? Take your time when eating meals, at least 20-30 minutes per meal. ??? Avoid soda and limit caffeine consumption. Stop caffeine 2 weeks prior to surgery. ??? Sip 48-64 oz hydrating fluid daily between meals and avoid drinking with meals. ??? Use smaller plates/bowls/utensils for meals and eat smaller portions. ??? Plan meals 1 wk in advance and shop with a list. 2) Continue taking a complete multivitamin daily. 3) Exercise with the eventual goal of 30 minutes minimum 5 days per week or exercise as recommended by MD. 4) Practice this Meal Format: Protein first at all meals! Only eat until full. Breakfast 1st Protein (15-20 grams) 2nd Fruit (1 piece or ?? cup) 3rd Starch (1 serving) Lunch and Dinner 1st Protein (20 grams) 2nd Non-Starchy Vegetables (no limit, no fat) 3rd Starch (1 serving) 4th Fruit (1 piece or ?? cup) 1 serving of starch = 1 slice toast, ?? Montenegrin muffin, ?? cup cooked potato, rice, or pasta, 1 small shiela or wrap Non starchy vegetables include all those except corn, peas, winter squash, beans, and potatoes Snacks: 1-2 per day if physically hungry - choose a protein or a fruit Surgery date: For patients who have insurers who have a long approval process, your surgery date and pre-operative class will be scheduled after you are approved by your insurer. We cannot predict your OR date in advance of approval. Only the OR menhaden fishing crew member can provide you with a date. Questions for your doctor, specialist or pharmacist: 7. Ask your doctor about medication suggestions if you currently take medications that are larger than the size of a tylenol. Large pills need to be crushed (if permitted by the drug sql report writer) ortaken in liquid form for TWO WEEKS after surgery. Diabetic oral medication often does not need to betaken after surgery) ?? If you take antinflammatory medications or steroid medications for arthritis or asthma, please check with your doctor. These medications will likely need to be held 1 week prior to and at least a few weeks after surgery. For women who take control or hormone medications: these medications must be stopped 1 month before and after surgery. Use alternative forms of control. Education: 1. Continue to read information about bariatric surgery- websites listed in your handbook Also check the ASMBS website: http://asmbs.org/patients 2. Bariatric surgery apps- [facility] Delfino Apps- Pre-Delfino, Post-delfino 3.[facility] facebook page: [email or web address] documented in this encounter Progress Notes Amanda Cooper - 12/23/2015 9:00 AM EDT Bariatric Surgery Program Initial Nutrition Assessment Seng Finley is being seen today for a preoperative evaluation in anticipation of weight loss surgery. SUBJECTIVE Preferred procedure: laparoscopic Eva-En-Y gastric bypass because after looking at the different procedures it seems to her that the bypass has the best results and a good track record. When she started looking into surgery a few years ago, she feels that the lap band was said to be the best. Her cousin had gotten a lap band and had to have it removed and then had the sleeve done. Interest in bariatric surgery: She has been overweight her whole life and on a diet cycle forever and she can't seem to lose weight. She first heard about surgery in the early 1999' and at that time her insurance wouldn't cover it so she put it aside. More recently her PCP recommended it to her and got her thinking about it again. And seeing her cousin do well after having revision surgery from the band to the sleeve. Motivating Factors for Seeking Weight Loss Surgery: ?? [x] Improved Health- lose weight to help with the arthritis in her knees and also avoid diabetes,she is diagnosed w/ prediabetes. ?? [x] FPC weight loss ?? [ ] Improved quality of life ?? [x] Increased activity- the pain in her knees has gotten worse in the past year and has limited her activity, she has to take more rests at work. Research: ?? [x] Reading (Internet, books, etc.) - talking with the dietitian and psychologist about their previous patients who have had success after surgery. ?? [x] Talking to people who have had weight loss surgery- talking with her cousin. ?? [x] Attending introductory seminar- 08/15/15 ?? 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 She has chickens, ducks, hens, geese, sheep, and rabits. Hobbies: Gardening, raising livestock, camping, hiking, and playing guitar Related medical history: Class III obesity, OA in her knees, prediabetes Overweight/obese since age: since childhood Highest weight: 265# at age 19, 28, and 40 y/o Lowest weight: 158# at age 14 and 185# at age 29 Dieting History: Type of Diet Wt Lost (lbs.) Wt. 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 History of bingeing/purging/laxatives to lose weight: Bingeing and purging briefly at age 14 but notsince then. As a kid she would fast for 5 days to lose 10# off and on but not as an adult. History of excessive exercise to lose weight: none Contributing Factors to Obesity: ?? [ ] Hx Binge Eating / Eating disorder ?? [x] Large portion sizes ?? [x] Fast eater- eating quickly in her car on her 1 hour commmute, busy and not taking the time tosit down to eat ?? [ ] Nighttime eating ?? [ ] Emotional eating ?? [ ] Mindless eating ?? [x] Choosing high calorie foods- craves a variety of snack foods, salty foods, and cheese ?? [x] Preference for concentrated sweets ?? [x] Snacking-stopping at a gas station on her commute to work for snacks and snacking on pastriesat work ?? [ ] Grazing ?? [x] Meal skipping- and then feeling desperate for food and making bad choices. ?? [x] Physical Inactivity- knee problems since she was 8 y/o, less active as a kid ?? [x] Genes- Her mother struggled with her weight. And her father has always been overweight. ?? [x] Drinking beer on her days off ?? [x] Consuming meals with staff that are high in fat and carbs ?? [x] Tasting and nibbling all day at work ?? [x] Took her awhile as an adult to realize what foods may be heathy Eating Triggers: ?? [ ] Emotions: ?? [x] Boredom ?? [x] Stress- making the wrong choices, convenience foods when stressed. ?? [ ] Fatigue ?? [ ] Physical Hunger ?? [ ] Eating on a Schedule ?? [ ] Other: Food Allergies/Intolerances/Preference: ?? [ ] Gluten ?? [ ] Lactose ?? [x] Allergic to raw pineapple ?? [x] Dislikes organ meat, cheap fish, and tuna Recent Changes in Dietary/Lifestyle Habits: ?? [x] Smaller portions ?? [x] 3 meals per day- working on it ?? [ ] Eating slower ?? [x] More fruits, vegetables, and whole grains- more salads ?? [ ] Leaner proteins ?? [ ] Decreasing carbohydrates ?? [ ] Lower calorie cooking methods (baking, broiling, grilling, etc.) ?? [x] Nutrition Counseling with RD ?? [ ] No longer buying tempting foods from grocery store ?? [x] Cutting out soda- cut out diet soda in 2009 ?? [x] Cutting out concentrated sweets/ decreasing added sugar- less sweets at night, decreasing pastries at night and choosing deviled eggs instead ?? [ ] Increased physical activity ?? [x] Bringing food to work or buying healthy convenience foods. Taking the time to portion out andeat 1.5 oz of cheese with crackers or apple, which is more filling, instead of choosing a high calorie snack. Buying pre-portioned snacks when stressed and busy. ?? [x] Sticking to 2,000 kcal meal plan and planning ahead. ?? Date changes implemented: Gradually in August 2015, started working harder in September and October. She had a little slip up in November, more stress and pressure with the school year starting and [place] exchange students. Tracking Intake: Intermittently to prepare for visits w/ RD, feels she is really bad at it. 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 Some days those bites are her meals. Typical Daily Intake: Breakfast 1 cup plain Greenlandic yogurt and 1 tbsp maple syrup and fresh fruit or homemade canned fruit Snack Sometimes [place] granola bar w/ apple Or cheese and Triscuit crackers Lunch 10-12 oz homemade casserole- chili rellenos w/ ground beef, nuts, and cheese Or 8-10 oz homemamde soup w/ Triscuits- broth soup w/ vegetables or squash Snack Not usually, has an early dinner Supper Dinner w/ staff: Sausage w/ khmer fries and salad Or lasagna Or grilled chicken (she can cook something for herself if she can't eat the prepared dinner and has time at work) Or she brings her own meal from home Or skips b/c she is busy with the students Snacks If skips dinner, she eats at 10pm: deviled eggs w/ smoked salmon If she eats dinner she usually has a granola bar or cheese and crackers on her way home from work. Beverages: small pot (20 oz) of caffeinated coffee w/ 2% milk in the morning and 50-64 oz water or seltzer water throughout the rest of the day, sometimes another coffee ETOH: 1 beer per day and 3-4 beers on her days off. Drinks a 12 pack per week. Tobacco: none How Often Meals Eaten Away From Home: Convenience foods once a week from a gas station or a sandwich. Does not eat fast food. Supplements/Vitamins: Women's MVI Physical Activity: Caring for animals and working in the garden, along with being active and on her feet at work. Psychological Indications: Not currently seeing a therapist, but she found him helpful and he encouraged her to come back after surgery. Vision at 2 years post-op: Being more active, wearing clothes she hasn't been able to wear, feeling better about herself, and feeling healthy. Goal weight: 190# OBJECTIVE: Weight History: Date Weight (lbs) HT BMI Comments 265# Highest Weight (patient reported) 08/12/15 262# 66 42.3 Initial program weight 12/23/15 259# 66 41.8 1st pre-op visit [facility] % Surgery 1 month post-op 4 months post-op [place] Body Weight (based on BMI of 25): 154.9# Excess Weight: 104.1# SUMMARY: Seng Finley has been referred for nutrition evaluation and diet instruction in anticipation of bariatric surgery. Previous conservative attempts at weight loss through dieting have been unsuccessful over the levelman. Predicted weight loss with surgery is an estimated 50-70% of excess body weight, which would be a goal weight between 180-207#. Advised pt that bariatric surgery is a tool, not a solution; and ultimately, weight loss will be achieved through proper eating and exercise habits. She showed good understanding of the concepts discussed. NUTRITION DIAGNOSIS: - Obesity related to history of physical inactivity and over consumption as evidenced by BMI of 41.8. PLAN: Prepare meals ahead of time to help consume 3 meals per day and avoid skipping meals or consuming high calorie meals with staff. Consume protein at every meal and choose high protein snacks as alternatives to sweets or convenience foods. 1) Patient to practice post-op GB diet recommendations prior to surgery to support post-op success and long-term weight loss: ??? Eat 3 meals daily, spaced about 4-6 hours apart. ??? Take your time when eating meals, at least 20-30 minutes per meal. ??? Avoid soda and limit caffeine consumption. ??? Sip 48-64 oz hydrating fluid daily between meals and avoid drinking with meals. ??? Use smaller plates/bowls/utensils for meals and eat smaller portions. ??? Plan meals 1 wk in advance and shop with a list. 2) Continue taking a complete multivitamin daily. 3) Exercise with the eventual goal of 30 minutes minimum 5 days per week or exercise as recommended by MD. 4) We reviewed the No Weight Gain Policy. 5) Patient to attend two pre-op educational classes prior to surgery. Information given to patient: 1. [facility] Bariatric Surgery Education Handbook, a 102 page document (revision June 2011) which contains extensive information regarding pre and post- operative nutrition guidelines including: preop diet,Diet stages I-IV, hydration recommendations, protein guidelines, dumping syndrome, food intolerances, vitamin and mineral supplementation as well as a list of books and online bariatric resources. Alyse Cannon - 12/23/2015 9:00 AM EDT Reason for consultation: Seng is a 40 y.o. year-old female referred by KAMALA LOVETT MD for consultation for consideration of surgical treatment of obesity. Prior bariatric surgery evaluations: denies. She considered surgery a few years ago. Her preferred procedure: gastric bypass due to greater success rate, have been available longer. Seng was encouraged to review the risks and benefits of both procedures in the BSP handbook, as well as online via the ASMBS website. She was advised that the final decision for procedure is made by the surgeon with input from the patient and team. BARIATRIC SURGERY PROGRAM PATHWAY Review of progress with the requirements of the Bariatric Surgery Program: 1. Education: She has attended a Introduction to the [facility] Bariatric Surgery Program seminar, a comprehensive two hour meeting that provides a program overview, education on bariatric surgeries offeredat [facility], risks and benefits, as well as patient expectations and follow up, 08/15/2015. [facility] BSP Educational seminars viewed: 3. Grades on post-testin-100% The BSP Educational Handbook is provided at preoperative visit #1. 2. Pre-operative programmatic evaluations required: PCP evaluation and letter of support to proceed with surgery, BSP labwork (can be done on day of visit #1) and psychological evaluation- minimum of 2visits. 3. Bariatric Surgery Program evaluations with RD and MORTGAGE ANALYST: 12/23/15 4. Weight history: 242# on 11/29/13, 260# on 06/25/14, 262# on 08/12/15, 255# on 11/13/15, 259 pounds on 12/23/15. HT: 66 WT at visit #1: 259 pounds. 5. Gallbladder status: intact, not studied. 6. Insurer specific requirements: BCBS of [place] 7. BSP Team meeting discussion: no indication 8. Next steps in pathway: ?? Additional testing/ consultations as determined as needed to be determined at today's visit. ?? If all BSP requirements and testing have been completed: surgical consultation. ?? Following surgical consultation, if approved to proceed to surgery by the surgeon and insurer: anoperating room date and pre-operative class will be scheduled. History of present illness: Seng reports a history of obesity since the age of [age]. Factors that she identifies as contributing to her obesity include: eating for emotional wellbeing and inactivity. Reported brief (3 episodes) bingeing and purging at age 14. She denies binge eating disorder, night eating disorder, self-induced vomiting, laxative or diuretic use or excessive exercise to lose weight. Conservative efforts at weight loss have been unsuccessful in the half-way. She has been working with a therapist to establish regular meal times and make good choices when hungry. Refer to nutrition note by [facility] dietitian for weight and dieting history, 24 hour dietary intake and recent dietary changes. Motivating factors for seeking surgery for bariatric surgery: see RD note Patient research in addition to attendance at [facility] Bariatric Surgery Informational meeting and online Educational seminars: see RD note Her goals of surgery: lose weight to improve knee pain, overall health Her perceived readiness for surgery: she believes that she is ready to proceed Her goal weight:Seng is in agreement with predicted anticipated weight loss by 1 year post surgery Functional status: Exercise: As per RD note Is ambulation limited most or all of the time? no Tolerance: she can walk 1/2 mile, can walk up 1 flight of stairs, difficulty going down stairs due to knee pain, has to hold onto railings Karnofsky performance status scale: 80- normal activity with effort ADLs: able to carry on without difficulty- independent Use of assistive devices: none Dyspnea with routine activity: going uphill Problem List ??? Preoperative Class III obesity BMI 41.8 ??? Prediabetes treated with metformin ??? Musculoskeletal issues: current treatment with Celebrex, half-way NSAID use - DJD knees, needs knee replacement- Dr Yadira TALBERT in [place] ??? History of DVT to left shoulder due to thoracic outlet syndrome in 2004, while in [facility]. Admitted for 1 week, unsure if had [...] Laterality Date ??? Foot surgery Left 2012 [place] procedure ??? Tibia osteotomy Right 2006, 2009 ??? [place] teeth extractions ??? Arthroscopies Bilateral ??? Microfracture procedure knees ??? Carpal tunnel release Bilateral 2009 ??? Partial first rib removal Left 2005 thoracic outlet syndrome Anesthesia history (per patient): denies untoward events Lactose/ Food/ Wheat/ Latex allergy/sensitivity: denies Diagnostic screenin. Lab data Results for SENG FINLEY ( ) Ref. Range 12/23/2015 11:48 WBC Latest Ref Range: 4.0 - 9.5 x10(3)/mcL 8.6 RBC Latest Ref Range: 4.00 - 5.21 x10(6)/mcL 4.39 Hemoglobin Latest Ref Range: 11.7 - 15.5 gm/dL 12.3 Hematocrit Latest Ref Range: 35.7 - 45.8 % 38.3 MCV Latest Ref Range: 82.6 - 94.4 fL 87.2 MCH Latest Ref Range: 27.1 - 32.0 pg 28.0 MCHC Latest Ref Range: 31.7 - 35.0 gm/dL 32.1 RDWSD Latest Ref Range: 37.0 - 46.0 fL 42.5 RDWCV Latest Ref Range: 11.5 - 14.1 % 13.3 Platelets Latest Ref Range: 145 - 357 x10(3)/mcL 294 MPV Latest Ref Range: 7.6 - 12.9 fL 10.0 nRBC % Auto Latest Units: % 0.0 nRBC Abs Auto Latest Ref Range: 0.000 - 0.000 x10(3)/mcL 0.000 Neutr Abs (ANC) Latest Ref Range: 1.70 - 6.10 x10(3)/mcL 5.59 Neutrophils % Latest Units: % 65.2 Immature Gran % Latest Units: % 0.70 Lymphocytes % Latest Units: % 24.5 Monocytes % Latest Units: % 7.2 Eosinophils % Latest Units: % 1.9 Basophils % Latest Units: % 0.5 Leida Gran Abs Latest Ref Range: 0.00 - 0.04 x10(3)/mcL 0.06 (H) Lymphocytes Abs Latest Ref Range: 0.9 - 3.2 x10(3)/mcL 2.1 Monocyte Abs Latest Ref Range: 0.3 - 0.9 x10(3)/mcL 0.6 Eosinophils Abs Latest Ref Range: 0.0 - 0.4 x10(3)/mcL 0.2 Basophils Abs Latest Ref Range: 0.0 - 0.1 x10(3)/mcL 0.0 Sodium Latest Ref Range: 135 - 145 mmol/L 139 Potassium Latest Ref Range: 3.5 - 5.0 mmol/L 4.3 Chloride Latest Ref Range: 98 - 107 mmol/L 102 CO2 Latest Ref Range: 22 - 31 mmol/L 24 Anion Gap Latest Ref Range: 5 - 15 mmol/L 13 BUN Latest Ref Range: 8 - 18 mg/dL 13 Creatinine Latest Ref Range: 0.70 - 1.20 mg/dL 0.71 Estimated GFR Latest Ref Range: >=60 >60 Glucose Fasting Latest Ref Range: 65 - 99 mg/dL 77 Calcium Latest Ref Range: 8.5 - 10.5 mg/dL 9.2 Uric Acid Latest Ref Range: 2.5 - 6.5 mg/dL 5.9 Total Protein Latest Ref Range: 6.1 - 8.0 gm/dL 7.1 Albumin Latest Ref Range: 3.2 - 5.2 gm/dL 4.6 Total Bilirubin Latest Ref Range: 0.2 - 1.3 mg/dL 0.2 Bili, Direct Latest Ref Range: 0.0 - 0.3 mg/dL 0.1 Alk Phos Latest Ref Range: 40 - 104 unit/L 57 AST Latest Ref Range: 0 - 30 unit/L 16 ALT Latest Ref Range: 0 - 30 unit/L 27 Ferritin Latest Ref Range: 15 - 150 ng/mL 15 Folate Lvl Latest Ref Range: 4.8 - 24.2 ng/mL 15.2 Iron Latest Ref Range: 30 - 150 mcg/dL 69 TIBC Latest Ref Range: 250 - 450 mcg/dL 392 Iron Saturation Latest Ref Range: 20 - 50 % 18 (L) Vitamin B-12 Latest Ref Range: 207 - 974 pg/mL 461 Chol, Total Latest Ref Range: <=199 mg/dL 194 HDL Latest Ref Range: >=40 mg/dL 46 Chol/HDL Ratio Latest Units: ratio 4.2 Triglycerides Latest Ref Range: <=149 mg/dL 152 (H) LDL Cholesterol Latest Ref Range: <=99 mg/dL 118 (H) Vitamin A Latest Ref Range: 32.5 - 78.0 mcg/dL 62.9 TSH Latest Ref Range: 0.27 - 4.20 mcIU/mL 3.55 PTH Latest Ref Range: 15 - 65 pg/mL 31 Date WBC Hg/ Hct Plt Iron screen Lytes/CO2 BUN/Cr/GFR Ca Fast glu Insulin HA1C Microalbumin POC 02/11/15 Nl/ 26 63 50 08/12/15 5.2 Date Vit A B12 25 D PTH folate T chol HDL LDL Trig Uric acid LFTs 08/28/15 33 2. Psychological evaluation done by Mike Landaverde [facility] following sessions on 11/10 and 11/18/15: no contraindication to bariatric surgery from a psychological perspective. Screening/other: Date Evaluation Results 2016 Primary care Colonoscopy Done ~[address] [place] [address] Oc Smith, reports as normal 12/22/13 Pap negative 11/09/13 Mammogram ACR category 1: negative - DEXA Family History: Father: Age 87 early heart disease [place] age 55, obesity, CABG x 4, pacemaker, arthritis bed ridden, thyroid disease Mother: at 55 renal cancer, obesity Brother(s): 1 overweight, diverticulitis, has had surgery Sister(s): Familial diseases/disorders: Additional family history: [x] All others negative Obesity: mostly maternal Diabetes: maternal and paternal grandfathers Thyroid disease: Premature heart disease: father CAD 50s: Breast or colon cancer: Bleeding/ clotting disorders: Anesthesia complications: Renal calculi/ gout: maternal uncle Social History/ Health-related habits : Residence/ marital status:Seng is from her and lives with her boyfriend in [place], [place] Plans for post-operative support: boyfriend Support persons viewed information on bariatric surgery: + Education/ Occupation: bachelors in culinary arts from [employer], some graduate school. 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 She denies history of alcohol abuse. Tobacco: never Recreational drugs/Injection/Inhalant: denies recent or current use Screening for IPV in the past year: negative Osteoporosis risk factors: negative if blank []Advancing age []Previous fracture []Glucocorticoid therapy []Parental history of hip fracture []Current cigarette smoking []Excessive alcohol consumption[]Rheumatoid arthritis []Secondary osteoporosis (eg, hypogonadism or premature menopause, malabsorpti on, chronic liver disease, inflammatory bowel disease) control: none currently, prior mirena Dental visits:not current Living will/DPOA: Not Review of Systems (negative if left blank): Constitutional: [ ] fatigue EENT [ ] wears corrective lens [+] has prescription for glasses, doesn't use [ ] vision or hearing problems Neurologic: [ ] paresthesias [ ] dizziness [ ] chronic headaches Cardiovascular: [ ] history of chest pain, squeezing, pressure [ ] history of [place] [ ] previous PCI/ PTCA, cardiac surgery [+ ] VTE [ ] Syncope [ ] murmur [ ] palpitations Respiratory: [ ] shortness of breath [ ] wheezing [ ] COPD [- ] symptoms of sleep apnea: Reports some snoring, sleeps well other than awakens with knee pain 1-3x a night, Denies am headaches, or drifting while driving GI: [ ] GERD [ ] dysphagia [ ] early satiety [ ] abdominal pain [ ] hernia [+] history of campylobacter [ ] prior CT scan abdomen [ ] ED visit for abdominal pain [ ]nausea/ vomiting [ ] blood in stool [ ] chronic diarrhea [ ] frequent constipation [] previous obesity surgery : [+ ] incontinence -slight leaking related to end of menses [ ] hematuria [] history of renal calculi DIGITAL LIBRARIAN: [ +] LMP: 2 weeks ago, heavy for 1 day only [ +] menorrhagia history [ ] menopause Musculoskeletal [+ ] myalgia/arthralgias:as per problem list Extremities: [ ] Varicose veins, telangiectasias [+] edema ankles when on long drives Skin: [ ] skinfold rashes [+ ] tattoo on left hip Endocrine: [ ] DM [ ] PCOS [ ] thyroid disease Heme/Lymph: [ ] excessive bruising [ ] lymphadenopathy [ ] transfusion [ +] blood donor in remote past [ ] iron deficiency history Allergic/ Immun: [ ] use of steroid/ immunosuppressant for chronic condition [ ] Latex, food or medication allergies: as per allergy list Psychiatric [+ ] depression in 2007 due to drug interaction with IBS med and another medication [] anxiety [] panic attacks [ ] history of suicide attempt [ ] symptoms of bipolar disorder [] addictions- gambling, excessive shopping, prolonged internet use [ ] History of abuse [ ] psychiatric hospitalization [ ] rehab admission Other: [ ] smoker within 1 year of surgery [ ] current smoker [ ] anticoagulation Bariatric Surgery VTE Risk Assessment Score Patients will be considered to be at high risk if they have one or more of the followin Previous VTE or BMI >/= 60 kg/m2 Or two or more of the following: Age > 50 BMI >/= 50 kg/m2 Male sex Recent tobacco use Obstructive sleep apnea Venous insufficiency/ varicose veins OCP or HRT within 30 days of surgery Total: 3 extended VTE prophylaxis is indicated post bariatric surgery discharge Patients are advised to stop HRT and OCP/ DMPA 1 month prior to surgery and hold for 1 month post op, and use control during this time if appropriate. All patients who take coumadin/ anti-10A inhibitors preoperatively are referred to the Thrombosis Clinic for recommendations. Physical exam: Vital signs: BP 152/87 (normal at PCP office) Pulse 93 Temp 36.7 ??C (98.1 ??F) (Oral) Resp 18 Ht 167.6 cm (5' 6) Wt (!) 117.5 kg (259 lb) SpO2 100% BMI 41.8 kg/m2 Neuro: Non-focal, gait significantly antalgic Psych: Pleasant, conversant, normal affect, cognition and mood. ENT: neck thick. Neck circumference 16.5 MP 2 Lungs: CTA without wheezing. Heart: RRR, no murmur appreciated. Abdomen: Obese, soft, non- tender Waist circumference is 47 inches Extremities: no lower extremity edema Skin: No areas of skin breakdown. Facial hirsuitism Obesity distribution: mixed Discussion of treatment of obesity and of the [facility] Bariatric Surgery Program: Ms.. Finley is aware that other treatments for obesity are available, ie, dietary, behavior modification, weight loss medications, exercise as well as surgical weight loss methods. The risks and benefits of bariatric surgery, including gastric bypass, adjustable gastric banding and sleeve gastrectomy are discussed at every Introduction to the [facility] meeting and all Educational Seminars, and will be reviewed in detail at the second pre- operative visit. The importance of incorporating lifestyle activity and regular exercise, such as walking, or swimming, after discussion and approval by her primary rn complex care, prior to surgery, as well as post-operatively, was stressed. She is aware of our programmatic approach which includes three bariatric surgeons, as well as two dietitians and two nurse practitioners. Mandatory requirements include: 1. attendance at a two hour Introduction to the [facility] B[facility] seminar 2. view 3 Bariatric Surgery Educational seminars and complete post testing 3. a no weight gain policy. Ongoing weight loss is encouraged. Insurers may have additional weightloss requirements. 4. a minimum of two pre-operative visits with the dietitian and nurse practitioner 5. surgical consultation 6. Two hour pre-operative class and completion of post-testing 7. any additional requirements mandated by the patient's insurance carrier. Prospective patients are encouraged to thoroughly research bariatric surgery, via the internet, the [facility] B[facility] website at [email or web address], books, and journals. In addition, information on bariatric surgery is available at the [employer] at [facility]. Assessment/ Plan: 40 y.o. year old female with Class III obesity with established obesity-related chronic disease including hypertension, type 2 diabetes, obstructive sleep apnea, osteoarthritis, GERD, PCOS, anxiety disorder, moderate limitations in activities of daily living and impairment of well-being. ?? An upper endoscopy will be scheduled given her levelman NSAID use to rule out upper GI pathology. In addition, she has a low ferritin level of 15. ?? She drinks alcohol on a daily basis, and was encouraged to decrease use. She was advised that no alcohol should be consumed for two months after surgery and then in very limited amounts. She was advised of the risk of alcohol addiction after surgery, and that alcohol contains empty calories and mayinterfere with vitamin absorption. ?? She is currently sexually active without control. She was advised to start using control as soon as possible. is not recommended for at least 1 year after surgery. She has had failure to sustain weight loss by medical management and meets the criteria proposed by the NIH Consensus Guidelines for surgical treatment of severe obesity and the AACE, TOS, ASMBS Clinical Practice Guidelines for the Perioperative Nutritional, Metabolic and Non-surgical Support of the Bariatric Surgery Patient 2013 Update. She is aware that there are non-surgical methods to achieve weight loss. She will be given a follow up appointment to discuss the risks and benefits of bariatric surgery. She has had an opportunity to have all her questions answered and is in agreement with the plan of care. She was encouraged to call with any questions or concerns. Data reviewed: e-DH, PCP notes, lab data, psychological evaluation. Information given to patient: 1. [facility] Bariatric Surgery Education Handbook, a 102 page document (revision December 2012) which contains extensive information regarding pre and post- operative care including: a copy of the Patient Agreement, illustrations of GI anatomy and gastric bypass, gastric banding and sleeve gastrectomy surgeries, [facility] Rehab Medicine recommendations and exercises prior to surgery, gastric bypass, gastric banding and sleeve gastrectomy risks and benefits, dietary information including the pre-operative and post-operative diets, DVT prevention guidelines,information on medications that can increase the risk of bleeding, pre-op preparation information, post-operative instructions and contact numbers. Pending: - EGD - Mammogram - control plan - Copy of colonoscopy, requested - CBC and CMP within 3 months of surgery, per [facility] accredited bariatric center guidelines (if surgery done after 03/24/15) - Ongoing weight loss encouraged - 2nd visits with RD and MORTGAGE ANALYST/ surgeon, surgical consultation: she will call to schedule Preop class recommendations: VTE 2, + IFEANYI, + PPI, hold celebrex Questions regarding [facility] B[facility]ric [facility] Program patients: please call Darnell Strickland APRN or Regina Cannon APRN at [phone] documented in this encounter Plan of Treatment Scheduled Referrals Name Type Priority Associated Order Schedule Diagnoses Referral to Outpatient Routine Morbid obesity, Ordered: Gastroenterology Referral unspecified obesity 12/12 type [facility] current use of non-steroidal anti-inflammatories (NSAID) documented as of this encounter Procedures Procedure Name Priority Date/Time Associated Diagnosis Comme nts PTH Routine 12/23/2015 11:48 AM Morbid obesity, Resul ts for this EDT unspecified obesity procedur e are in type the results section. CMP W/FASTING Routine 12/23/2015 11:48 AM Morbid obesity, Resu lts for this GLUCOSE EDT unspecified obesity procedur e are in type the results section. HEMOGRAM Routine 12/23/2015 11:48 AM Screening for iron Re sults for this EDT deficiency anemi a procedure are in Morbid obesity, the results unspecified obesity section. type DIFFERENTIAL, Routine 12/23/2015 11:48 AM Screening for iron R esults for this AUTOMATED EDT deficiency anemi a procedure are in Morbid obesity, the results unspecified obesity section. type IRON AND TIBC Routine 12/23/2015 11:48 AM Screening for iron R esults for this EDT deficiency anemi a procedure are in Morbid obesity, the results unspecified obesity section. type Pain in joints VITAMIN A Routine 12/23/2015 11:48 AM Morbid obesity, Resul ts for this EDT unspecified obesity procedur e are in type the results section. CBC (WITH DIFF) Routine 12/23/2015 11:48 AM Screening for iron EDT deficiency anemi a Morbid obesity, unspecified obesity type URIC ACID Routine 12/23/2015 11:48 AM Morbid obesity, Resul ts for this EDT unspecified obesity procedur e are in type the results section. TSH Routine 12/23/2015 11:48 AM Morbid obesity, Resul ts for this EDT unspecified obesity procedur e are in type the results section. FOLATE, SERUM Routine 12/23/2015 11:48 AM Morbid obesity, Resu lts for this EDT unspecified obesity procedur e are in type the results section. FERRITIN Routine 12/23/2015 11:48 AM Screening for iron Re sults for this EDT deficiency anemi a procedure are in Morbid obesity, the results unspecified obesity section. type Pain in joints VITAMIN B12 Routine 12/23/2015 11:48 AM Morbid obesity, Resul ts for this EDT unspecified obesity procedur e are in type the results section. LIPID PANEL (REFLEX Routine 12/23/2015 11:48 AM Morbid obesity , Results for this DIRECT LDL) EDT unspecified obesity procedur e are in type the results section. documented in this encounter Results (ABNORMAL) Differential, Automated (12/23/2015 11:48 AM EDT) P athologist Signature Neutrophils % 65.2 % [facility] Neutr Abs (ANC) 5.59 1.70 - [facility] 6.10 [facility] x10(3)/[facility] LABORATORY Lymphocytes % 24.5 % [facility] Lymphocytes Abs 2.1 0.9 - 3.2 [facility] x10(3)/[facility] LABORATORY Monocytes % 7.2 % [facility] Monocyte Abs 0.6 0.3 - 0.9 [facility] x10(3)/[facility] LABORATORY Eosinophils % 1.9 % [facility] Eosinophils Abs 0.2 0.0 - 0.4 [facility] x10(3)/[facility] LABORATORY Basophils % 0.5 % [facility] Basophils Abs 0.0 0.0 - 0.1 [facility] x10(3)/[facility] LABORATORY Immature Gran % 0.70 % [facility] Comment: Immature granulocytes(IG's)percentage an d absolute count will include metamyelocytes, myelocytes, and promyelo cytes. Blood smears from CBCs yielding IG's will be scanned manually for concsherice daneugene. If this scan disagrees with the automated IG or if promyelocytes are not ed, a manual differential will be performed. Leida Gran Abs 0.06 (H) 0.00 - 0.04 x10(3)/[facility] LABORATORY Specimen Anatomical Collection Method Collection Time Receive d Time (Source) Location / / Volume Laterality Blood specimen 12/23/2015 11:48 6 (specimen) AM EDT 11:52 AM EDT Resulting Agency Comment Spec In Lab Tim Padilla MD HEMATOLOGY ORDERABLES Performing Organization Address City/State/[place] [address] Hemogram (12/23/2015 11:48 AM EDT) P athologist Signature WBC 8.6 4.0 - 9.5 [facility] x10(3)/[facility] LABORATORY RBC 4.39 4.00 - [facility] 5.21 [facility] x10(6)/[facility] LABORATORY Hemoglobin 12.3 11.7 - [facility] 15.[facility] gm/dL [facility] Hematocrit 38.3 35.7 - [facility] 45.8 % [facility] MCV 87.2 82.6 - [facility] 94.4 [facility] MCH 28.0 27.1 - [facility] 32.0 pg [facility] MCHC 32.1 31.7 - [facility] 35.0 gm/dL [facility] Platelets 294 145 - 357 [facility] x10(3)/[facility] LABORATORY RDWSD 42.5 37.0 - [facility] 46.0 [facility] LABORATORY RDWCV 13.3 11.5 - [facility] 14.1 % [facility] MPV 10.0 7.6 - 12.9 [facility] LABORATORY nRBC % Auto 0.0 % [facility] nRBC Abs Auto 0.000 0.000 - [facility] 0.000 [facility] x10(3)/[facility] LABORATORY Specimen Anatomical Collection Method Collection Time Receive d Time (Source) Location / / Volume Laterality Blood specimen 12/23/2015 11:48 6 (specimen) AM EDT 11:52 AM EDT Resulting Agency Comment Spec In Lab Tim Padilla MD HEMATOLOGY ORDERABLES Performing Organization Address City/State/ZIP Code Phon e Number [address] TSH (12/23/2015 11:48 AM EDT) P athologist Signature TSH 3.55 0.27 - 4.20 [facility] [place] mcIU/mL [facility] Specimen Anatomical Collection Method Collection Time Receive d Time (Source) Location / / Volume Laterality Blood specimen 12/23/2015 11:48 6 (specimen) AM EDT 11:52 AM EDT Resulting Agency Comment Spec In Lab Tim Padilla MD CHEMISTRY ORDERABLES Performing Organization Address City/[facility]/ZIP Code Phon e Number [address] Uric acid (12/23/2015 11:48 AM EDT) P athologist Signature Uric Acid 5.9 2.5 - 6.5 [facility] mg/dL [facility] Specimen Anatomical Collection Method Collection Time Receive d Time (Source) Location / / Volume Laterality Blood specimen 12/23/2015 11:48 6 (specimen) AM EDT 11:52 AM EDT Resulting Agency Comment Spec In Lab Tim Padilla MD CHEMISTRY ORDERABLES Performing Organization Address City/State/ZIP Code Phon e Number [address] Folate, serum (12/23/2015 11:48 AM EDT) P athologist Signature Folate Lvl 15.2 4.8 - 24.2 [facility] ng/mL [facility] Specimen Anatomical Collection Method Collection Time Receive d Time (Source) Location / / Volume Laterality Blood specimen 12/23/2015 11:48 6 (specimen) AM EDT 11:52 AM EDT Resulting Agency Comment Spec In Lab Tim Padilla MD CHEMISTRY ORDERABLES Performing Organization Address City/State/ZIP Code Phon e Number [address] Vitamin B12 (12/23/2015 11:48 AM EDT) athologist Signature Vitamin B-12 461 207 - 614 [facility] pg/mL [facility] Specimen Anatomical Collection Method Collection Time Receive d Time (Source) Location / / Volume Laterality Blood specimen 12/23/2015 11:48 6 (specimen) AM EDT 11:52 AM EDT Resulting Agency Comment Spec In Lab Tim Padilla MD CHEMISTRY ORDERABLES Performing Organization Address City/[facility]/ZIP Code Phon e Number [address] PTH (12/23/2015 11:48 AM EDT) athologist Signature PTH 31 15 - 65 [facility] pg/mL [facility] Specimen Anatomical Collection Method Collection Time Receive d Time (Source) Location / / Volume Laterality Blood specimen 12/23/2015 11:48 6 (specimen) AM EDT 11:52 AM EDT Resulting Agency Comment Spec In Lab Tim Padilla MD CHEMISTRY ORDERABLES Performing Organization Address City/[facility]/ZIP [facility] [place] Number [address] Vitamin A (12/23/2015 11:48 AM EDT) athologist Signature Vitamin A 62.9 32.5 - 78.0 [facility] mcg/dL [facility] Comment: ADDITIONAL INFORMATIO N This test was developed and its performa nce characteristics determined by [facility] in a manner co nsistent with CLIA requirements. This test has not been lorenza ared or approved by the U.S. Food and Drug Administration. Test Performed by: [address] [address] Insurance Office Manager: Tim Paul II, M.D., Ph.D. Specimen Anatomical Collection Method Collection Time Receive d Time (Source) Location / / Volume Laterality Blood specimen 12/23/2015 11:48 6 (specimen) AM EDT 12:34 PM EDT Resulting Agency Comment Spec In Lab Tim Padilla MD CHEMISTRY ORDERABLES Performing Organization Address City/State/[place] [address] Ferritin (12/23/2015 11:48 AM EDT) athologist Signature Ferritin 15 15 - 150 [facility] ng/mL [facility] Comment: Pediatric reference ranges not verified at [facility], interpret with caution. Reference ranges for females greater sae n 50 years of age approach values for men, i.e., 30-400 ng/mL. Specimen Anatomical Collection Method Collection Time Receive d Time (Source) Location / / Volume Laterality Blood specimen 12/23/2015 11:48 6 (specimen) AM EDT 11:52 AM EDT Resulting Agency Comment Spec In Lab Tim Padilla MD CHEMISTRY ORDERABLES Performing Organization Address City/State/ZIP Code Phon e Number [address] (ABNORMAL) Iron and TIBC (12/23/2015 11:48 AM EDT) athologist Signature Iron 69 30 - 150 [facility] mcg/dL [facility] TIBC 392 250 - 450 [facility] Iron Saturation 18 (L) 20 - 50 % [facility] Specimen Anatomical Collection Method Collection Time Receive d Time (Source) Location / / Volume Laterality Blood specimen 12/23/2015 11:48 6 (specimen) AM EDT 11:52 AM EDT Resulting Agency Comment Spec In Lab Tim Padilla MD CHEMISTRY ORDERABLES Performing Organization Address City/State/[place] [address] (ABNORMAL) Lipid panel (fasting) (12/23/2015 11:48 AM EDT) athologist Signature Chol, Total 194 <=199 mg/dL [facility] Comment: Recommendations of the NCEP Adult Treatm ent Panel for the following risk cutoff thresholds for the [place] populatio n: Desirable: <200 mg/dL Borderline High: 200-239 mg/dL High: > or = 240 mg/dL Triglycerides 152 (H) <=149 mg/dL [facility] Comment: Reference Range: Normal triglycerides: ??<150 mg/dL Borderline high: ??150-199 mg/dL High: ??200-499 mg/dL Very high: ??>qr=516 mg/dL [place] 2001; 285(19):[phone] HDL 46 >=40 mg/dL [facility] Comment: Reference range: ??Low HDL: ?? < 40 mg/dL ??Normal: ?40-60 mg/dL ??Desirable: > 60 mg/dL [place] 2001; 285(19):2658-4250 LDL Cholesterol 118 (H) <=99 mg/dL [facility] Comment: Reference range: ?? Optimal: ?<100 mg/dL ?? Near Optimal/Above Optimal: ?? 100-1 29 mg/dL ?? Borderline high: ?130-159 mg/dL ?? High: ? 160-189 mg/dL ?? Very high: ?>ea=602 mg/dL [place] 2001: 285(19):[phone] Chol/HDL Ratio 4.2 ratio [facility] Comment: A Cholesterol to HDL ratio below 4:1 is desirable. ??Studies suggest that increased CAD risk occurs at ratios abov e 5 for females and above 6 for men. ? [place] [employer] ??(htt p://www.americanheart.org) ? Livia Int Med, 1994; 121:641 ? AM J Med, 1998; 105(1A):48S Specimen Anatomical Collection Method Collection Time Receive d Time (Source) Location / / Volume Laterality Blood specimen 12/23/2015 11:48 6 (specimen) AM EDT 11:52 AM EDT Resulting Agency Comment Spec In Lab Tim Padilla MD CHEMISTRY ORDERABLES Performing Organization Address City/State/ZIP Code Phon e Number [place] [phone] CMP w/fasting Glucose (12/23/2015 11:48 AM EDT) athologist Signature Glucose 77 65 - 99 [facility] Fasting mg/dL [facility] Comment: ?Fasting* Glucose Interpretive C riteria Normal ?65-99 mg/dL Impaired Fasting glucose ?100-125 mg/dL Consistent with Diabetes Mellitus ? >or= 126 mg/dL *Fasting is defined as no caloric intake for at least 8 hours In the absence of unequivocal hypergly cemia a plasma glucose value of >or= 126 mg/dL should be repeated on a subseq uent day. Diagnosis and Classification of Diabetes Mellitus, Position Statement from the [place] [employer]. ??Diabete s Care, Volume 33, Supplement 1, Mar 2009 BUN 13 8 - 18 mg/dL [facility] Creatinine 0.71 0.70 - 1.20 mg/dL [facility] Comment: Please note that the pediatric reference intervals supplied above were not validated at [facility]. Results from pediatri c patients should be interpreted in conjunction to the patient's age, height and muscle mass. Sodium 139 135 - 145 mmol/L [facility] Potassium 4.3 3.5 - 5.0 mmol/L [facility] Comment: Please note: ??Patients with WBC >100,00 0 may have falsely elevated Potassium levels. ??For accurate Potassium quantif ication in these patients send serum separator tube (gold top) for subsequent determinations. ??Contact the Clinical Chemistry Laboratory if there are any qu estions. Chloride 102 98 - 107 mmol/L [facility] CO2 24 22 - 31 mmol/L [facility] Anion Gap 13 5 - 15 mmol/L [facility] Calcium 9.2 8.5 - 10.5 mg/dL [facility] Total Protein 7.1 6.1 - 8.0 gm/dL [facility] Albumin 4.6 3.2 - 5.2 gm/dL [facility] AST 16 0 - 30 unit/L [facility] ALT 27 0 - 30 unit/L [facility] Alk Phos 57 40 - 104 unit/L [facility] Total Bilirubin 0.2 0.2 - 1.3 mg/dL [facility] Bili, Direct 0.1 0.0 - 0.3 mg/dL [facility] Estimated GFR >60 >=60 [facility] Comment: This estimated GFR (eGFR) [...] the following links into your internet browser. http://Freebase/DHnkdep http://Freebase/DHMCnkf Specimen Anatomical Collection Method Collection Time Receive d Time (Source) Location / / Volume Laterality Blood specimen 12/23/2015 11:48 6 (specimen) AM EDT 11:52 AM EDT Resulting Agency Comment Spec In Lab Tim Padilla MD CHEMISTRY ORDERABLES Performing Organization Address City/State/[place] [address] documented in this encounter Visit Diagnoses Diagnosis Morbid obesity, unspecified obesity type [facility]PC current use of non-steroidal a nti-inflammatories (NSAID) Encounter for long-term (current) use of non-steroidal anti-inflammatories Screening for iron deficiency anemia Pain in joints Pain in joint, multiple sites Morbid obesity with BMI of 40.0-44.9, ad ult Morbid obesity Irritable bowel syndrome with diarrhea Irritable bowel syndrome documented in this encounter Care Teams Quality Assurance Inspector Relationship Specialty Start Date End Date Kamala Lovett MD PCP - General Family Medicine 12/04/15 [address] [place] [address] documented as of this encounter
--- OUTSIDE RECORDS SUMMARY | 2021-10-09 00:10 | XMS_ITS | Encounter Summary ---
:1975 [place] [address] Care Team Providers Name Role Phone Soraya Lovett MD Primary Care Provider Reason for Visit Auth/Cert Specialty Diagnoses / Procedures Referred By Contact Refer red To Contact Diagnoses Obesity, morbid MORBID OBESITY Procedures PRO LAPAROSCOPY, SURG/GASTRIC RESTRICTIVE PROC, LONGITUDINAL GASTRECTOMY @LAPAROSCOPY, SURG/GASTRIC RESTRICTIVE PROC, LONGITUDINAL GASTRECTOMY Referral ID Status Reason Start Date Expiration Date Visits Requ ested Visits Authorized [id number] 1 1 Encounter Details Date Type Department Care Team Description 02/03/2016 Surgery Main Operating Room Mamta Casey, @ LAPAROSCOPY, Josephine Barksdale [facility] SURG/GASTRIC RESTRICTIVE [facility] PROC, [facility] DR BLANK (WRVU 20.38) [facility] [place] [address] [place], [place] [id number] [phone] (Wo rk) Social History Tobacco Use Types [...] for bariatric surgery. She has completed the [facility] bariatric surgery program and mets criteria for weight loss surgery. She and Dr. Caseyhad a lengthy discussion in the clinic about her operative options. She described that she is takingcelebrex alf for chronic knee pain, in advance of [...] Instructions BARIATRIC SURGERY DISCHARGE INFORMATION CONTACT INFORMATION: [phone] Surgeons: Randy Kwok and Madhu [phone] Pediatrics Physician: [phone] (Tuesday through Tuesday, 8:00 AM -5:00 PM) Dietitians: [phone] Non-business hours: [phone], ask for general surgeon moving consultant FOR EMERGENCIES: CALL 911 (trouble breathing, chest [...] on page82. The prescription is sent to [facility] IF YOU ARE TREATED FOR OBSTRUCTIVE [...] Follow up with primary care provider or college specialist in 1-2 weeks. Bring meter to [...] MD Minimally Invasive Surgery Service Service pager [phone] 02/05/2016 documented in this encounter Discharge Instructions Patient InstructionsWiYady davidson MD - 02/05/2016 7:59 AM EST BARIATRIC SURGERY DISCHARGE INFORMATION CONTACT INFORMATION: [phone] Surgeons: Randy Kwok and Madhu [phone] Pediatrics Physician: [phone] (Tuesday through Tuesday, 8:00 AM -5:00 PM) Dietitians: [phone] Non-business hours: [phone], ask for general surgeon moving consultant FOR EMERGENCIES: CALL 911 (trouble breathing, chest [...] on page82. The prescription is sent to [facility] IF YOU ARE TREATED FOR OBSTRUCTIVE [...] Follow up with primary care provider or college specialist in 1-2 weeks. Bring meter to [...] Heart Rate from SPO2: [63 bpm-79 bpm] BXX=115ks Physical Exam Gen: NAD, resting comfortably CVS: [...] EST Patient received from the PACU to [facility] with some nausea, but no vomitting, using the Dilaudid MILLER HEAD ASSISTANT WET PROCESS for pain relief, IV is patent, skin [...] Boggs MD - 02/03/2016 7:[address] [facility] Department of General Surgery Interval History and [...] (Interventions Implemented as Appropriate) 02/03/16 1400 02/04/16 032 Discharge Needs Assessment Concerns To Be Addressed [...] 02/04/16 0326 Interdisciplinary Rounds/Family Conf Participants nursing;patient;physician Initial Assessments [...] Specific Information: N/A Health/Prescription Coverage: Primary Insurance: [place] of [place] Secondary Insurance: None listed Prescription Coverage: BCBS Preferred Pharmacy: [facility] in [place], [place] Other: N/A Primary Care Provider: Soraya Lovett MD [phone] Patient/Caregiver Goals of Treatment: Discharge home with dietary instructions. Potential Needs for Transition of Care: Rehab/SNF: No Home Health: No DME: No Dialysis: No Community Resources: No Transportation: Personal car with boyfriend Other: N/A Anticipated Barriers to Discharge/Special Considerations: No barriers anticipated. Plan: CM will maintain contact with patient & providers to coordinate any services needed for discharge. Soraya Bruno, RN Pager: [phone] Plan of Care - Brett Barragan RN - 02/04/2016 3:58 AM EST Problem: Patient Care Overview Goal: Plan of Care Review Outcome: Ongoing (Interventions Implemented as Appropriate) 02/04/16 0326 Coping/Psychosocial Plan Of Care Reviewed With patient Plan of Care Review Progress progress toward functional goals as expected OUTCOME EVALUATION NOTE: OUTCOME SUMMARY: Seng had a good night, sleeping between care. Pain managed with MILLER HEAD ASSISTANT WET PROCESS. Voiding adequately. BP has beenelevated - MD [...] Assessment Outcome: Ongoing (Interventions Implemented as Appropriate) 02/04/16325 Discharge Needs Assessment Concerns To Be Addressed no discharge needs identified Equipment Needed After Discharge none Current Health Anticipated Changes Related to Illness none Activity/Self Care Review of Systems Equipment Currently Used at Home none Goal: Interdisciplinary Rounds/Family Conf Outcome: Ongoing (Interventions Implemented as Appropriate) 02/04/16 0326 Interdisciplinary Rounds/Family Conf Participants nursing;patient;physician Plan of Care - Deven Green RN - 02/03/2016 2:50 PM EST Problem: Patient Care Overview Goal: Plan of Care Review OUTCOME EVALUATION NOTE: OUTCOME SUMMARY: Dilaudid MILLER HEAD ASSISTANT WET PROCESS for pain control, with relief. PLAN MOVING [...] Casey MD - 02/03/2016 10:21 AM EST [facility] Operative Note Patient Name: Seng Muse : [id number] MR#: [id number] Case Date: 02/03/2016 Surgeon: Surgeon(s) and Role: [...] were placed in the leftabdomen for the psychiatric technician assistant. Two ports (5mm and 12mm) were [...] the stomach near the incisura. A 42 Khmer bougie was then advanced under laparoscopic guidance [...] IMPLANTABLE DEVICES 02/06/2016 12:00 SCAN AM EST FINNISH RUBBER SCAN 02/06/2016 12:00 AM EST POCT GLUCOSE [...] MEDIA MGR SCAN EXT ORDR/RSLT SCAN DOC: FINNISH RUBBER (02/06/2016 12:00 AM EST) Narrative This result has an attachment that is no t available. Scanning Provider MEDIA MGR SCAN EXT ORDR/RSLT POCT Glucose (02/05/2016 12:02 PM EST) athologist Signature POC Glucose 80 65 - 199 [facility] mg/dL [facility] Comment: Supplemental ranges: <140 mg/dL before meals <180 mg/dL all other times of the day Specimen Anatomical Collection Method Collection Time Receive d Time (Source) Location / / Volume Laterality Blood specimen 02/05/2016 12:02 6 (specimen) PM EST 12:02 PM EST Mamta Casey MD POINT OF CARE TEST ORDERABLE S Performing Organization Address City/State/[place] [address] POCT Glucose (02/05/2016 7:03 AM EST) P athologist Signature POC Glucose 101 65 - 199 [facility] mg/dL [facility] Comment: Supplemental ranges: <140 mg/dL before meals <180 mg/dL all other times of the day Specimen Anatomical Collection Method Collection Time Receive d Time (Source) Location / / Volume Laterality Blood specimen 02/05/2016 7:03 AM 016 7:03 (specimen) EST AM EST Mamta Casey MD POINT OF CARE TEST ORDERABLE S Performing Organization Address City/State/ZIP Code Phon e Number [address] POCT Glucose (02/04/2016 7:55 PM EST) P athologist Signature POC Glucose 86 65 - 199 [place] mg/dL [facility] Comment: Supplemental ranges: <140 mg/dL before meals <180 mg/dL all other times of the day Specimen Anatomical Collection Method Collection Time Receive d Time (Source) Location / / Volume Laterality Blood specimen 02/04/2016 7:55 PM 016 7:55 (specimen) EST PM EST Mamta Casey MD POINT OF CARE TEST ORDERABLE S Performing Organization Address City/State/ZIP Code Phon e Number [address] POCT Glucose (02/04/2016 4:47 PM EST) athologist Signature POC Glucose 96 65 - 199 [facility] mg/dL [facility] Comment: Supplemental ranges: <140 mg/dL before meals <180 mg/dL all other times of the day Specimen Anatomical Collection Method Collection Time Receive d Time (Source) Location / / Volume Laterality Blood specimen 02/04/2016 4:47 PM 016 4:47 (specimen) EST PM EST Mamta Casey MD POINT OF CARE TEST ORDERABLE S Performing Organization Address City/State/ZIP Code Phon e Number [address] (ABNORMAL) Differential, Automated (02/04/2016 5:45 AM EST) [facility] Time Signature Neutrophils % 77.7 % [facility] Neutr Abs (ANC) 8.80 (H) 1.70 - [facility] 6.10 [facility] x10(3)/[facility] LABORATORY Lymphocytes % 14.5 % [facility] Lymphocytes Abs 1.6 0.9 - 3.2 [facility] x10(3)/[facility] LABORATORY Monocytes % 6.9 % [facility] Monocyte Abs 0.8 0.3 - 0.9 [facility] x10(3)/[facility] LABORATORY Eosinophils % 0.3 % [facility] Eosinophils Abs 0.0 0.0 - 0.4 [facility] x10(3)/[facility] LABORATORY Basophils % 0.3 % [facility] Basophils Abs 0.0 0.0 - 0.1 [facility] x10(3)/[facility] LABORATORY Immature Gran % 0.30 % [facility] Comment: Immature granulocytes(IG's)percentage an d absolute count will include metamyelocytes, myelocytes, and promyelo cytes. Blood smears from CBCs yielding IG's will be scanned manually for concor dance. If this scan disagrees with the automated IG or if promyelocytes are not ed, a manual differential will be performed. [place] Gran Abs 0.03 0.00 - 0.04 x10(3)/[facility] LABORATORY Specimen Anatomical Collection Method Collection Time Receive d Time (Source) Location / / Volume Laterality Blood specimen 02/04/2016 5:45 AM 016 5:57 (specimen) EST AM EST Resulting Agency Comment Spec In Lab Sandrine Boggs MD HEMATOLOGY ORDERABLES Performing Organization Address City/State/ZIP Code Phon e Number [place] [id number] (ABNORMAL) Hemogram (02/04/2016 5:45 AM EST) Analysis Performed At Patho logist Time Signature WBC 11.3 (H) 4.0 - 9.5 [facility] x10(3)/[facility] LABORATORY RBC 4.29 4.00 - [facility] 5.21 [facility] x10(6)/[facility] LABORATORY Hemoglobin 12.0 11.7 - [facility] 15.5 gm/dL [facility] Hematocrit 35.8 35.7 - [facility] 45.8 % [facility] MCV 83.4 82.6 - [facility] 94.4 fL [facility] MCH 28.0 27.1 - [facility] 32.0 pg [facility] MCHC 33.5 31.7 - [place] [place] 35.0 gm/dL [facility] Platelets 256 145 - 357 [facility] x10(3)/[facility] LABORATORY RDWSD 40.8 37.0 - [facility] [place] 46.0 [facility] LABORATORY RDWCV 13.3 11.5 - [facility] 14.1 % [facility] MPV 10.3 7.6 - 12.9 [facility] LABORATORY nRBC % Auto 0.0 % [facility] nRBC Abs Auto 0.000 0.000 - [facility] 0.000 [facility] x10(3)/[facility] LABORATORY Specimen Anatomical Collection Method Collection Time Receive d Time (Source) Location / / Volume Laterality Blood specimen 02/04/2016 5:45 AM 016 5:57 (specimen) EST AM EST Resulting Agency Comment Spec In Lab Sandrine Boggs MD HEMATOLOGY ORDERABLES Performing Organization Address City/[facility]/ZIP Code Phon e Number [address] (ABNORMAL) Phosphorus (02/04/2016 5:45 AM EST) P athologist Signature Phosphorus 2.4 (L) 2.5 - 4.5 [facility] mg/dL [facility] Specimen Anatomical Collection Method Collection Time Receive d Time (Source) Location / / Volume Laterality Blood specimen 02/04/2016 5:45 AM 016 5:57 (specimen) EST AM EST Resulting Agency Comment Spec In Lab Sandrine Boggs MD CHEMISTRY ORDERABLES Performing Organization Address City/State/[place] [address] Magnesium (02/04/2016 5:45 AM EST) P athologist Signature Magnesium 0.82 0.69 - 1.07 [facility] mmol/L [facility] Specimen Anatomical Collection Method Collection Time Receive d Time (Source) Location / / Volume Laterality Blood specimen 02/04/2016 5:45 AM 016 5:57 (specimen) EST AM EST Resulting Agency Comment Spec In Lab Sandrine Boggs MD CHEMISTRY ORDERABLES Performing Organization Address City/State/[place] [address] (ABNORMAL) Basic Metabolic Panel (non-fasting) (02/04/2016 5:45 AM EST) athologist Signature Glucose Lvl 93 65 - 199 [facility] mg/dL [facility] Comment: Diabetes: >=200 mg/dL plus symp toms BUN 8 8 - 18 mg/dL [facility] Creatinine 0.68 (L) 0.70 - 1.20 mg/dL [facility] Comment: Please note that the pediatric reference intervals supplied above were not validated at [facility]. Results from pediatri c patients should be interpreted in conjunction to the patient's age, height and muscle mass. Sodium 138 135 - 145 mmol/L [facility] Potassium 3.7 3.5 - 5.0 mmol/L [facility] Comment: Please note: ??Patients with WBC >100,00 0 may have falsely elevated Potassium levels. ??For accurate Potassium quantif ication in these patients send serum separator tube (gold top) for subsequent determinations. ??Contact the Clinical Chemistry Laboratory if there are any qu estions. Chloride 101 98 - 107 mmol/L [facility] CO2 24 22 - 31 mmol/L [facility] Anion Gap 13 5 - 15 mmol/L [facility] Calcium 8.5 8.5 - 10.5 mg/dL [facility] Estimated GFR >60 >=60 [facility] Comment: This estimated GFR [...] the following links into your internet browser. http://[email or web address]/DHnkdep [email or web address]/DHMCnkf Specimen Anatomical Collection Method Collection Time Receive d Time (Source) Location / / Volume Laterality Blood specimen 02/04/2016 5:45 AM 016 5:57 (specimen) EST AM EST Resulting Agency Comment Spec In Lab Sandrine Boggs MD CHEMISTRY ORDERABLES Performing Organization Address City/[facility]/[place] [address] Specimen to Pathology (surgical or derm) (02/03/2016 9:33 AM EST) Specimen Anatomical Collection Method Collection Time Receive d Time (Source) Location / / Volume Laterality AP Specimen 02/03/2016 9:33 AM 6 9:33 EST AM EST Narrative [facility]Y - 02/03/2016 9:33 AM EST Specimen requisition ordered. ??Separate Pathology report to follow Mamta Casey MD PATHOLOGY/CYTOLOGY ORDERABLE S Performing Organization Address City/State/[place] [address] Surgical Pathology Report (02/03/2016 9:32 AM EST) Component Value Ref Test Analysis Performed At [facility] gist Range Method Time Signature Surgical [id number] ?Location: [facility]; [facility]4; [facility] Report The signing pathologist has (i) examined the relevant preparation(s) for the [facility] specimen(s) and (ii) rendered or confirmed the diagnosis(es) . HOSPITAL LABORATORY . ?Surgic al Pathology DIAGNOSIS Stomach, resection: - Segment of stomach with multiple ?? fundic gland polyps. Electronically signed by: ??Alen Ozuna MD Verified: ??02/06/2016 ?Pathologist CLINICAL INFORMATION Specimen Submitted: [...] Wall Thickness: Averages 0.4-0.6 cm. Sections/ Processing: [employer] Machine Operator sections are submitted. (R4) ??pps Specimen (Source) Anatomical Collection Method Collection Time Re ceived Time Location / / Volume Laterality 02/03/2016 9:32 AM EST Mamta Casey MD PATHOLOGY/CYTOLOGY ORDERABLE S Performing Organization Address City/State/ZIP Code Phon e Number [address] POCT Glucose (02/03/2016 6:41 AM EST) athologist Signature POC Glucose 95 65 - 199 [facility] mg/dL [facility] Comment: Supplemental ranges: <140 mg/dL before meals <180 mg/dL all other times of the day Specimen Anatomical Collection Method Collection Time Receive d Time (Source) Location / / Volume Laterality Blood specimen 02/03/2016 6:41 AM 016 6:41 (specimen) EST AM EST Mamta Casey MD POINT OF CARE TEST ORDERABLE S Performing Organization Address City/State/[place] [address] documented in this encounter Visit Diagnoses Not on filedocumented in this encounter Admitting Diagnoses Diagnosis Obesity, Class III, BMI 40-49.9 (morbid obesity) Morbid obesity documented in this encounter Administered Medications Inactive Administered Medications - up to 3 most recent administrations Medication Order MAR Action Action Date Dose Rate Site acetaminophen (TYLENOL) 650 mg/20.3 mL o ral liquid 650 mg 650 mg, Oral, EVERY 4 HOURS PRN, Starting on Ofe 02/04 at 1400, Until Ofe 02/05/16 at 1802, Fever, Maximum dose of acetaminophen is 4000 mg from all sources in 24 hours. , Routine BUpivacaine (PF) (MARCAINE) Given 02/03/2016 9:44 AM EST 5 mg 19- Surgical Site 0.25 % (2.5 mg/mL) injection ONCE PRN, Starting on Tue02/03/16 at 0944, Until Tue02/05/16 at 1802, Intra-Operative (Intra-Procedure), Routine enoxaparin (LOVENOX) injection 40 mg Given 02/05/2016 [...] PRN, Starting on Tue02/04/16 at 0346, Until Tue02/05/16 at 1802, High Blood Pressure, Administer for SBP > 150. Hold for SBP < 100. Given 02/04/2016 8:44 AM EST 10 mg Given 02/04/2016 4:25 AM EST 10 mg labetalol (NORMODYNE,TRANDATE) injection 20 mg Given 02/05/2016 4:46 AM EST 20 mg 20 mg, Intravenous, EVERY 2 HOURS PRN, Starting on Tue02/04/16 at 1146, Until Tue02/05/16 at 1802, High Blood Pressure, give for SBP > 150 or DPB > 95, Routine oxyCODONE (ROXICODONE) 5 mg/5 mL solution 5-10 Given 04/06/2015 1:17 PM EST 5 mg mg [...] Given 02/03/2016 2:16 PM EST 40 mg sodium chloride 0.9 % flush 5 mL [...] 02/05/2016 acetaminophen (OFIRMEV) injection 1,000 mg (COMPLETED) 1609 (Given - Provider: Deven Green, SUSI)2125 (Given - Provider: Brett Barragan, SUSI) 0601 (Given - Provider: Brett Barragan, SUSI) 1,000 mg, Intravenous, at 400 mL/hr, TORRI RY 8 HOURS SCHEDULED, 3 doses, First dose on Tue02/03/16 at 1400, Last dose on Tue02/04/16 at 0600, Routine acetaminophen (OFIRMEV) injection 1,000 mg (COMPLETED) 1315 (Given - Provider: Laura Moody, SUSI)2229 (Given - Provider: Gail Harvey, SUSI) 0615 (Given - Provider: Gail Harvey, SUSI) 1,000 mg, Intravenous, at 400 mL/hr, TORRI RY 8 HOURS SCHEDULED, 3 doses, First dose on Tue02/04/16 at 1300, Last dose on Tue02/05/16 at 0600, STAT acetaminophen (TYLENOL) tablet 1,000 mg (COMPLETED) 07 14 (Given - Provider: Karen Stiles, SUSI) 1,000 mg, Oral, ONCE, 1 dose, Tue at 0615, Maximum dose of acetaminophen is 4000 mg from all sources in 24 hours., STAT ceFAZolin (ANCEF) 3g in dextrose 5% 100 mL (COMPLETED) 0754 (Given - Provider: Dashawn Spencer CRNA) 3 g, Intravenous, ONCE, 1 dose, 01/13 at 0745, Administer over 30 Minutes, tapper bit to OR, Indication for (Active or Suspected): Skin/Skin Structure enoxaparin (LOVENOX) injection 40 mg (COMPLETED) 0730 (Given - Provider: Karen Stiles RN)0745 (Due) 40 mg, Subcutaneous, ONCE, 1 dose, Tue02/03/16 at 074 5, In PREOP holding, STAT enoxaparin (LOVENOX) injection 40 mg 1416 (Given - Pro vider: Deven Green RN)2124 (Given - Provider: Brett Barragan RN) 822 (Given - Provider: Brittani oHyt, SUSI)2035 (Given - Provider: Gail Harvey RN) 08 (Given - Provider: Ewa Pham RN) 40 mg, Subcutaneous, 2 TIMES DAILY, Firs t dose on Tue02/03/16 at 1345, Until Discontinued, Routine ondansetron (ZOFRAN-ODT) oral disintegrating tablet 4 mg 1545 (Given - Provider: Ewa Pham RN) 4 mg, Oral, ONCE, 1 dose, Tue02/05/16 at 1330, Routine pantoprazole (PROTONIX) injection 40 mg 141 (Given - Provider: Deven Green RN) 822 (Given - Provider: Brittani Hoyt, SUSI) 08 (Give n - Provider: Ewa Pham RN) 40 mg, Intravenous, DAILY, First dose on Tue02/03/16 at 1315, Until Discontinued, Reconstitute with 10 mL of normal saline to a concentration of 4 mg/mL and infuse slowly over 2 minutes. , Routine scopolamine (TRANSDERM-SCOP) 1.5 mg (1 mg over 3 days) patch 1 patch (CANCELED) 0645 (Patch Applied - Provider: Karen Stiles RN)0700 (Not Given - Provider: Sangeeta Guardado RN - Reason: See comment - Comment: given at 0645) 1 patch, Transdermal, EVERY 72 HOURS, Fi rst dose on Tue02/03/16 at 0700, Until Discontinued, Day of Surgery (Day of Procedure), Routine sodium chloride 0.9 % flush 5 mL 141 (Given - Provide r: Deven Green RN)2125 (Given - Provider: Brett Barragan RN) 0823 (Given - Provider: Brittani Hoyt, SUSI)2030 (Given - Provider: Gail Harvey, SUSI) 0802 (Given - Provider: Ewa Pham, RN) 5 mL, Intravenous, 2 TIMES DAILY, First dose on Tue02/03/16 at 1315, Until Discontinued, Recovery (Recovery-Hospital Unit), Routine Continuous Medication Order 02/03/2016 02/04/2016 02/05/2016 HYDROmorphone (DILAUDID) 1 mg/mL MILLER HEAD ASSISTANT WET PROCESS 50 mL (CANCELED) 1125 (New Syringe/Cartridge - Provider: Abdon Galvez, RN) 1057 (Stopped - Provider: Laura oMody, RN) Intravenous, MILLER HEAD ASSISTANT WET PROCESS ONLY, Starting 01/13 at 1115, Until Tue02/04/16 at 1035, Recovery (Recovery-Hospital Unit) lactated ringers infusion 1,000 mL (CANCELED) 0639 (Ne w Bag - Provider: Karen Stiles RN)0728 (Canceled Entry - Provider: Dashawn Spencer CRNA)0804 [...] 1055 (Ne w Bag - Provider: Abdon Galvez, SUSI)2101 (New Bag - Provider: Brett Barragan RN) 0739 (New Bag - Provider: Laura Moody, SUSI)1057 (Stopped - Provider: Laura Moody RN) 1,000 mL, at 100 mL/hr, Intravenous, CON TINUOUS, Starting Tue02/03/16 at 1115, Until Tue02/04/16 at 1035, Recovery (Recovery-Hospital Unit) lactated ringers infusion (CANCELED) 121 2 (New Bag - Provider: Laura Moody RN)1812 (New Bag - Provider: Laura Moody, SUSI) 0303 (New Bag - Provider: Gail Harvey, SUSI)0700 (Stopped - Provider: Ewa Pham RN) 100 [...] mg 0425 (Given - Provider: Brett Barragan RN)0844 (Given - Provider: Laura Moody RN)2053 (Given - Provider: Gail Harvey, SUSI) 10 mg, Intravenous, EVERY 4 HOURS PRN, S tarting Tue02/04/16 at 0346, Until Ofe 02/05/16 at 1802, High Blood Pressure, Administer for SBP > 150. Hold for SBP < 100. labetalol (NORMODYNE,TRANDATE) injection 20 mg 0446 (Given - Provider: Gail Harvey, SUSI) 20 mg, Intravenous, EVERY 2 HOURS PRN, [...] mg (CANCELED) 1808 (Given - Provider: Laura Moody RN) 4 mg, Intravenous, EVERY 8 HOURS PRN, St arting Tue02/04/16 at 1101, Until Ofe 02/05/16 at 0756, Nausea oxyCODONE (ROXICODONE) 5 mg/5 mL solution 5-10 mg 105 (Given - Provider: Laura Moody RN)2028 (Given - Provider: Gail Harvey, SUSI) 025 (Given - Provider: Gail Harvey, SUSI)100 (Given - Provider: Ewa Pham RN)131 (Given - Provider: Ewa Pham RN) 5-10 [...] Routine prochlorperazine (COMPAZINE) injection 10 mg (CANCELED) 1125 (Given - Provider: Laura Moody RN)2028 (Given - Provider: Gail Harvey, SUSI) 025 (Given - Provider: Gail Harvey, SUSI) 10 mg, Intravenous, EVERY 6 HOURS PRN, S tarting Tue02/04/16 at 1101, Until Ofe 02/05/16 at 0756, Nausea, Routine prochlorperazine (COMPAZINE) injection 5 mg (CANCELED) 0428 (Given - Provider: Brett Barragan, RN) 5 mg, Intravenous, EVERY 30 MIN PRN, 2 d oses, Starting Tu02/03/16 at 1130, Until 02/04/16 at 1035, Nausea, May repeat in 30 minutes if no relief from previous dose. HOLD if patient is sedated. Max imum dose is 40 mg in 24 hours. If mu ltiple antiemetics are ordered, use ondansetron first, prochlorperazine second. Per [facility] order., Recovery (Recovery-Hospital Unit), Routine promethazine (PHENERGAN) injection 12.5 mg (COMPLETED) 1113 (Given - Provider: Abdon Galvez, RN - Comment: 03/21 dose diluted and given slow IV push through running IV)1144 (Given - Provider: Abdon Galvez, SUSI) 12.5 mg, Intravenous, EVERY 30 MIN PRN, 2 doses, Starting Tue02/03/16 at 1023, Until Discontinued, Nausea, If multiple [...] Routine documented in this encounter Care Teams Case Technician Relationship Specialty Start Date End Date Soraya Lovett MD PCP - General Family Medicine 12/04/15 [address] [place] [address] documented as of this encounter
--- NOTE | 2021-10-23 15:18 | DI.MAMMO_ITS ---
Exam(s) MAMMO SCREENING EXAM: MAMMO SCREENING CLINICAL HISTORY: SCREENING, Z12.31 TECHNIQUE: Mammograms were interpreted according to the usual protocol including computer analysis w [employer] CAD system, tomosynthesis and C-view imaging. COMPARISON: 2013 through 2019 FINDINGS: The breasts are composed of scattered fibroglandular densities, Breast Density category B. No suspicious masses or suspicious microcalcifications are seen. No skin thickening or abnormal axillary lymph nodes are seen. There has been no significant change from prior exams. IMPRESSION: BI-RADS Category 1, Negative mammogram Yearly screening mammography is recommended. Breast Density - Category B, scattered fibroglandular densities. A negative radiographic report should not delay biopsy if a dominant or clinically suspicious mass is present. Up to ten percent of cancers are not identified on mammography. A negative report may reinforce clinical impression. Adenosis and dense breasts may obscure an underlying neoplasm. False positive reports average 6 to 10%. Patient will receive a letter notifying them of these results.
== END ==
PROVIDERS: PCP Family Medicine; Visit Provider Nurse Practitioner Adult Health
DX: Z12.31 Encounter for screening mammogram for malignant neoplasm of breast (principal)
CPT/HCPCS: 77063; 77067

== ENCOUNTER 2023-01-28 07:52 | Day surgery (SDC) | payer BC, SELFPAY ==
--- NOTE | 2023-01-27 12:33 | COLE_ITS ---
Date of service: 01/28/23 Time of Service: 10:15 Colonoscopy Report Date of procedure: 01/28/23 Pre-op diagnosis general: Colon cancer screening/chronic diarrhea/IBS Post-op diagnosis procedure note: other (Diverticulosis/polyp) Surgeon: Bonita Hanson Anesthesia Type: General:No Airway Estimated blood loss (mL): 2 Pathology: other Complications: None Disposition: same day Prep: Miralax/Dulcolax Retraction Time: 11 Procedure Description: After informed consent was obtained the patient was taken to the procedure room and placed in a left decubitous position. Monitors were applied and a time out was done. The patients name, date of , procedure, allergies to medications and metal in their body was reviewed. The patient was then sedated. Once sedated and comfortable a rectal exam was done. External exam was normal. Internal exam revealed a normal sphincter tone and no palpable masses. The scope was then introduced and retrofelexed. No internal hemorrhoids were identified. The scope was then advanced to the cecum without difficulty. The TI and appendiceal orifice were identified. The prep was BBPS 3 in all segments for total of 9. The scope was then slowly retracted over 11 minutes back into t he rectum. She had a few small diverticula confined to the sigmoid colon with no signs of active bleeding or infection. She had a very small 0.5 cm flat polyp at 20 cm that is probably in HP. This is removed with a cold biting forcep. Biopsies taken at 50 cm and in the rectum given her history of IBS/diarrhea. All specimens are retrieved and no bleeding is noted otherwise the colon is pink and healthy with a normal vascular pattern.. The scope was removed and the patient was woken up and taken back to Same day surgery in stable condition. The patient tolerated the procedure well and there were no immediate complications. Follow up: The patient should follow up in 7-10 years, path pending, unless they develop changes in bowel habits or other new gastrointestinal complaints.
--- NOTE | 2023-01-27 12:34 | PDOC.DSDIS_ITS ---
Date of service: 01/28/23 Time of Service: 10:18 Discharge Plan Disposition Patient Disposition: Home Condition: Good Discharge Details Reason For Visit: Colorectal cancer screening Attending Provider: Bonita Hanson Primary Care Provider: Toyin Frias Home Meds and New Rx's Prescriptions: Continued acamprosate 333 mg tablet,delayed release (DR/EC) 333 mg PO TID Rx Instructions: administer with mid-day and evening meals ferrous sulfate 47.5 mg iron tablet extended release 143 mg PO DAILY multivitamin [One Daily Multivitamin] Tablet 1 tab PO DAILY duloxetine 60 mg capsule,delayed release(DR/EC) 60 mg PO DAILY lisinopril 10 mg tablet 10 mg PO DAILY methocarbamol 500 mg tablet 1,000 mg PO QID Ozempic 1 mg/dose (4 mg/3 mL) pen injector 1 mg subcut QWEEK acetaminophen [Tylenol Extra Strength] 500 mg tablet 1,000 mg PO Q6H PRN diclofenac sodium 1 % gel 2 g topical QID Rx Instructions: apply to single elbow, wrist or hand; for hand includes palm/fingers/back of hand ascorbic acid (vitamin C) 1,000 mg capsule 1 g PO Q6H amlodipine 10 mg tablet 10 mg PO DAILY calcium carbonate 500 mg calcium (1,250 mg) tablet 1,000 mg PO DAILY celecoxib 200 mg capsule 200 mg PO BID ergocalciferol (vitamin D2) [Vitamin D2] 1,250 mcg (50,000 unit) capsule 1 mcg PO DAILY AM oxycodone-acetaminophen 5-325 mg tablet 1 tab PO BID cyclobenzaprine 10 mg tablet 10 mg PO DAILY PRN PRN omeprazole 20 mg capsule,delayed release(DR/EC) 20 mg PO DAILY AM loperamide 2 mg capsule 2 mg PO DIRECTED Discontinued bisacodyl [Dulcolax (bisacodyl)] 5 mg tablet,delayed release (DR/EC) 5 mg PO ONCE Qty: 4 0RF Rx Instructions: Take per colonoscopy instructions provided by ordering providers office polyethylene glycol 3350 17 gram/dose powder 17 g PO ONCE Qty: 238 0RF Rx Instructions: Take per colonoscopy instructions provided by ordering providers office Discharge Instructions Additional Instructions: DSU Colonoscopy Post- Op Instructions Instructions for Everyone who is given Anesthesia: For your safety, please do the following for the next twenty-four (24) hours: *Do Not operate a motor vehicle (car, truck, motorcycle, etc.) *Do Not drink alcoholic beverages or use any recreational drugs for the first 24 hours or while taking pain medications. The medications in your body may have a reaction that can be dangerous. *Do Not make any important decisions or sign any important papers. Findings: Diverticula: Make sure you are moving your bowels on a regular basis and you are not straining to go to the bathroom. If you find you are having problems with constipation then a fiber supplement such as Metamucil, it is recommended daily Follow up: We did do biopsies today. My office will send a letter in 2 to 3 weeks time with the results of the biopsies and when we want you to repeat your colonoscopy, most likely 10 years time. 1. No lifting over 20 pounds or strenuous activity for the first 24 hours after your procedure. After 24 hours there are no restrictions on your activity but you may feel fatigued for a few days. 2. After you arrive home you may have a light meal and return to your normal diet as you can tolerate it without feeling sick to your stomach. 3. You may have a bloated, gaseous feeling in your belly (abdomen) after a colonoscopy. Passing gas and belching will help. Walking or lying down on your left side with your knees flexed may relieve the discomfort. Call the office at [phone] (Office) or [phone] (Hospital) right away if you notice any of the following: a.Vomiting of blood or ?coffee ground stools?. b.Rectal bleeding 1Tbsp, blood clots or continuous bleeding. c.Severe belly (abdominal) pain. d.A hard distended belly (abdomen) and an inability to pass gas. 4. Please don?t expect to have a normal BM (bowel movement) for 2-3 days after your procedure. 5. If there are questions regarding the findings of your procedure, please contact your doctor 6. If you are unable to contact your doctor with a problem, contact the hospital at [phone]. 7. Continue all your regular medications unless directed otherwise. I understand the above instructions and have no questions. Signature of Patient or Adult Escort Name of Responsible Adult Escort Signature of Nurse Date/Time Activity:: See above Diet:: See above Discharge Orders Discharge Orders: Discharge Order (Routine); Ordered 01/28/23 Ordered By: Bonita Hanson DS: Diagnosis Discharge Diagnosis (1) Screening for malignant neoplasm of colon performed: Status: Acute (2) Chronic diarrhea: (3) Hypercholesterolemia: (4) Anemia: (5) Prediabetes: (6) Snoring: (7) IBS (irritable bowel syndrome): (8) Hypertensive disorder: (9) Diverticula of colon: Status: Acute
[2023-01-28 08:14] VITALS: BP 141/96; PULSE 89; RESP 18; TEMP 36.3; O2SAT 98
[2023-01-28] MEDS: Lactated Ringers 1,000 ML 80 ML IV (08:32)
--- NOTE | 2023-01-28 09:04 | W.ANESPRE ---
General Info Date of Service Date Performed: 01/28/23 Height: 5 ft 7 in Weight: 102.1 kg Body Mass Index (BMI): 35.2 Surgical Procedure: Operation Date: 01/28/23 09:05 Proposed Procedure Side Surgeon benjie Hanson, DO Meds Allergies and Home Medications Allergies Allergy/AdvReac Type Severity Reaction Status Date / Time No Known Allergies Allergy Unverified 01/27/23 12:29 Home Medication Medication Instructions Recorded celecoxib 200 mg capsule 200 mg PO BID 04/25/20 cyclobenzaprine 10 mg tablet 10 mg PO DAILY PRN PRN 04/25/20 ergocalciferol (vitamin D2) 1,250 1 mcg PO DAILY AM 04/25/20 mcg (50,000 unit) capsule (Vitamin D2) loperamide 2 mg capsule 2 mg PO DIRECTED 04/25/20 omeprazole 20 mg capsule,delayed 20 mg PO DAILY AM 04/25/20 release oxycodone-acetaminophen 5 mg-325 1 tab PO BID 04/25/20 mg tablet acetaminophen 500 mg tablet 1,000 mg PO Q6H PRN 12/31/22 (Tylenol Extra Strength) amlodipine 10 mg tablet 10 mg PO DAILY 12/31/22 ascorbic acid (vitamin C) 1,000 mg 1 g PO Q6H 12/31/22 capsule calcium carbonate 500 mg calcium 1,000 mg PO DAILY 12/31/22 (1,250 mg) tablet diclofenac sodium 1 % topical gel 2 g topical QID 12/31/22 duloxetine 60 mg capsule,delayed 60 mg PO DAILY 12/31/22 release lisinopril 10 mg tablet 10 mg PO DAILY 12/31/22 methocarbamol 500 mg tablet 1,000 mg PO QID 12/31/22 multivitamin (One Daily 1 tab PO DAILY 12/31/22 Multivitamin tablet) semaglutide 1 mg/dose (4 mg/3 mL) 1 mg subcut QWEEK 12/31/22 subcutaneous pen injector (Ozempic) acamprosate 333 mg tablet,delayed 333 mg PO TID 01/13/23 release bisacodyl 5 mg tablet,delayed 5 mg PO ONCE #4 tabs 01/13/23 release (Dulcolax (bisacodyl)) ferrous sulfate 143 mg PO DAILY 01/13/23 polyethylene glycol 3350 17 17 g PO ONCE #238 grams 01/13/23 gram/dose oral powder Current Visit Medications: Current Medications Generic Name Dose Route Start Last Admin Trade Name Freq PRN Reason Stop Dose Admin Hyoscyamine Sulfate 0.125 mg 01/28/23 11:00 Hyoscyamine 0.125 Mg Sl/Oral/Chew SL 02/27/23 10:59 DIRECTED PRN Ringer's Solution 1,000 mls @ 80 mls/hr 01/28/23 06:00 01/28/23 08:32 IV 02/26/23 23:59 80 mls/hr INFUSION CINDI Administration IV Miscellaneous Supplies 1 each 01/28/23 06:00 Iv Access IV 02/26/23 23:59 DIRECTED CINDI Ondansetron HCl 4 mg 01/28/23 11:00 Ondansetron 4 Mg/2 Ml Vial IVP 02/27/23 10:59 Q4H PRN PRN Nausea / Vomiting Sodium Chloride 0 ml 01/28/23 06:00 Normal Saline Flush 10 Ml Syr IV 02/26/23 23:59 PRN PRN Sodium Chloride 0 ml 01/28/23 06:00 Normal Saline 10 Ml Vial IJ 02/26/23 23:59 DIRECTED PRN Sterile Water 0 ml 01/28/23 06:00 Water,Injection,Sterile 10 Ml Vial IJ 02/26/23 23:59 DIRECTED PRN PFSH Active Problems Active Problems: Problem Status Onset Code Screening for malignant neoplasm of colon performed Z12.11 Medical History Medical History Rabies exposure 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 denies Anemia due to dietary deficiency DVT (deep venous thrombosis) provoked, in setting of thoracic outlet--rib removed, completed 3 months of anticoag. Prediabetes 10/31/2013 Snoring Arthritis of knee Osteoarthritis, knees, bilateral Oligomenorrhea 05/29/2014 Kidney disease 02/06/2020- renal lesion, left kidney pole IBS (irritable bowel syndrome) 10/31/2013 Hypertensive disorder Depressive disorder 09/30/2016 Obesity Vitamin D deficiency Uterine leiomyoma 10/31/2013 - history of fibroids, uterus Bacterial infectious disease 04/25/2020- exposure to zoonotic bacterial diseases Medical History Comments:: Per pt. states she has a very high tolerance for anesthetics such as lidocaine. Surgical History Surgical History S/P left knee arthroscopy 2009 - Dr. Lange, [place] Hx of total knee arthroplasty Right TKA- 06/2021 w/ Dr. 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 Tobacco Smoking/Tobacco Use Status: Never Alcohol Alcohol Intake: current Alcohol intake frequency: 0-2 drinks per day Alcohol type: wine Substance Use Substance use type: does not use Vital Signs and Lab Results Vital Signs Most Recent Vital Signs in EMR: Most Recent Vital Signs Temp Pulse Resp BP Pulse Ox 36.3 C L 89 18 141/96 H 98 01/28/23 08:14 01/28/23 08:14 01/28/23 08:14 01/28/23 08:14 01/28/23 08:14 Point of Care Results Point of Care Results: POC- Test(urine) Negative 01/28/23 08:38 Lab Results Blood Type / Crossmatch: No Data to Display Complete Blood Count: No Data to Display Complete Metabolic Panel: No Data to Display Liver Function Panel: No Data to Display Coagulation Panel: No Data to Display Cardiac Panel: No Data to Display Arterial Blood Gas: No Data to Display Venous Blood Gas: No Data to Display Pancreas Panel: No Data to Display Thyroid Panel: No Data to Display Infectious Disease: No Data to Display Blood Cultures: No Data to Display Toxicology Panel: No Data to Display Panel: No Data to Display Anesthesia Assessment and Plan Anesthesia History Personal History: Other Family History: No Family History of Anesthesia Complications Exercise Tolerance Exercise Tolerance: Metabolic Equivalents>4 Pertinent Negatives Pertinent Negatives: No Symptoms of GERD Cardiac & Pulmonary Exam Cardiac Exam: Normal S1/S2 Heart Sounds Pulmonary Exam: Clear Bilateral Breath Sounds Implantable Cardiac Device Does patient have a Pacemaker or an ICD?: No Airway Exam Known Difficult Airway: No Mallampati Class: 2 Mouth Opening: Normal (> 3cm) Thyromental Distance: Greater than 3 cm Neck Range of Motion: Full ROM Neck Circumference: Normal Teeth Condition: Normal Dentition ASA Classification ASA Score: ASA 2 Emergency Case?: No NPO Status NPO Status: NPO Clears >2 hours, Solids >8 hours Status Status: Not Per Patient Anesthesia Plan Resuscitation Status: Full Code Anesthesia Technique: General Anesthesia Airway Planned: Natural Airway Monitors Used: Standard Monitors
[2023-01-28 09:05] VITALS: BMI 35.2
--- NOTE | 2023-01-28 09:51 | BOWEL_PTH ---
PATIENT: Seng Muse LOC: [facility] U#:[id number] AGE/SX: 47/F ROOM: RE01/28/[address]: Bonita Hanson : 1975 BED: DIS: 01/28/2023 SPEC #: [id number] RECD: 01/28/23 10:56 STATUS: ERNESTINA REQ #: [id number] BURT: 01/28/23 09:[address]: Bonita Hanson DEPT: Surgical Specimen RECD BY: Sumi Cooper ENTERED: 01/28/23 10:58 SP TYPE: Bowel OTHR DR: Toyin Frias Tissues: 1 - BIOPSY BOWEL 2 - BIOPSY BOWEL 3 - BIOPSY BOWEL Procedures: GROSS AND MICRO LEVEL 4 Comments: [id number]
[2023-01-28 10:00] VITALS: BP 152/83; PULSE 83; RESP 16; TEMP 36.9; O2SAT 100
[2023-01-28] MEDS: Hyoscyamine 0.125 MG SL/ORAL/CHEW SL (10:13)
--- NOTE | 2023-01-28 10:14 | W.ANESPOSTOP ---
Postoperative Evaluation Date, Time and Location Date Performed: 01/28/23 Time Performed: 10:14 Patient Location: Day Surgery Unit Vital Signs Most Recent Imported Vital Signs: Most Recent Vital Signs Temp Pulse Resp BP Pulse Ox 36.9 C 83 16 152/83 H 100 01/28/23 10:00 01/28/23 10:00 01/28/23 10:00 01/28/23 10:00 01/28/23 10:00 Pain Score Most Recent Pain Score: Most Recent Pain Score Pain Level 0 01/28/23 10:00 Assessment Mental Status: Awake (Alert & Oriented to Patient Baseline) Airway and Respiratory Function: Patent airway with normal (patient baseline) respiratory exam Cardiovascular Function: Hemodynamically Stable Hydration Status: Adequately Hydrated Nausea & Vomiting: No Nausea or Vomiting Pain: Pt. Denies Any Pain Peripheral Nerve Block: Patient did not receive a nerve block
[2023-01-28 10:30] VITALS: BP 137/84; PULSE 84; RESP 16; TEMP 36.9; O2SAT 99
== END 2023-01-28 11:15 | disposition home or self-care (01) ==
PROVIDERS: PCP Nurse Practitioner Adult Health; Visit Provider Surgery
PROC: 0DJD8ZZ Inspection of Lower Intestinal Tract, Via Natural or Artificial Opening Endoscopic (ICD-10-PCS; CPT 45378; principal; 2023-01-28 09:00)
DX: Z12.11 Encounter for screening for malignant neoplasm of colon (principal); K63.5 Polyp of colon; K57.30 Diverticulosis of large intestine without perforation or abscess without bleeding; K58.0 Irritable bowel syndrome with diarrhea; I10 Essential (primary) hypertension; K63.89 Other specified diseases of intestine
CPT/HCPCS: 45380; 88305; J3490

== ENCOUNTER 2023-11-23 10:58 | Outpatient (CLI) | payer BC, SELFPAY ==
[2023-11-23 09:46] LABS: Abs Immature Grans 0.02 10^3/uL (0.0-0.06); Absolute Basophil Count 0.04 10^3/uL (0.0-0.2); Absolute Eosinophil Count 0.16 10^3/uL (0.0-0.7); Absolute Lymphocyte Count 1.28 10^3/uL (1.2-3.4); Absolute Monocyte Count 0.38 10^3/uL (0.1-0.8); Absolute Neutrophil Count 4.24 10^3/uL (1.2-6.7); Basophils % 0.7 %; Eosinophils % 2.6 %; HCT 36.6 % (36.0-46.0); HGB 12.4 g/dL (11.2-15.7); Immature Grans % 0.3 %; Lymphocytes % 20.9 %; MCH 29.6 pg (27.0-33.0); MCHC 33.9 % (32.0-36.0); MCV 87 fL (80-95); MPV 9.2 fL (8.0-11.0); Monocytes % 6.2 %; Neutrophils % 69.3 %; Platelet Count 252 10^3/uL (130-400); RBC 4.19 10^6/uL (3.93-5.22); RDW 12.9 % (11.7-14.6); RDW-SD 40.5 fL; WBC 6.12 10^3/uL (4.4-10.8)
[2023-11-23 10:26] LABS: ALT 32 U/L (14-59); AST 22 U/L (15-37); Albumin 3.6 g/dL (3.4-5.0); Alkaline Phosphatase 46 U/L (46-116); Anion Gap 9.1 mmol/L (3-11); BUN 12 mg/dL (7-18); Bilirubin, Total 0.36 mg/dL (0.2-1.0); CO2 23.9 mmol/L (21.0-32.0); CREATININE 0.8 mg/dL (0.55-1.02); Calcium 8.8 mg/dL (8.5-10.1); Chloride 106 mmol/L (98-107); Estimated GFR 89.71 (mL/min/1.73m2); Glucose 109 mg/dL (74-106); Potassium 3.7 mmol/L (3.5-5.1); Sodium 139 mmol/L (136-145); Total Protein 6.7 g/dL (6.4-8.2)
== END 2023-11-23 10:59 | disposition home or self-care (01) ==
LOC: LBO 10:59
PROVIDERS: PCP Nurse Practitioner Adult Health; Visit Provider Student in an Organized Health Care Education/Training Program
DX: M06.4 Inflammatory polyarthropathy (principal); Z79.899 Other long term (current) drug therapy
CPT/HCPCS: 36415; 80053; 85025